=== PATIENT | female | born 1940 | race Caucasian/White ===

== ENCOUNTER → 2017-04-05 | Outpatient (CLI) | payer OTHER ==
[~2017-04-05] MED LIST: B-CO1CAP3 PO; CALC-354 PO; CHOL2000 PO; LEVO75TA PO; NRN800 PO; OMEG12006 PO; PRLSR20 PO
--- NOTE | 2017-04-05 16:05 | MAMMOGRAPHY REPORT ---
BILATERAL DIGITAL SCREENING MAMMOGRAM WITH CAD: 04/05/2017 CLINICAL HISTORY: Routine screening. Patient has no complaints. TECHNIQUE: Bilateral CC and MLO views were obtained. Current study was also evaluated with a Comput er Aided Detection (CAD) system. COMPARISON: Comparison is made to exams dated: 03/29/2016 mammogram, 03/27/2015 ultrasound, 03/27/2015 mammogram, 03/21/2015 mammogram - [facility], and 03/06/2009. BREAST COMPOSITION: There are scattered areas of fibroglandular density in both breasts. FINDINGS: There are scattered bilateral benign-appearing calcifications. No suspicious mass, eliana ectural distortion or cluster of new, suspicious microcalcifications is seen. IMPRESSION: ACR BI-RADS CATEGORY 1: NEGATIVE There is no mammographic evidence of malignancy. A 1 year screening mammogram is recommended. The p atient will receive written notification of the results. Approximately 10% of breast cancers are not detected with mammography. A negative mammographic repor t should not delay biopsy if a clinically suggestive mass is present. Jaclyn Jernigan M.D. ay/:04/05/2017 14:25:47 Smoking Pipe Repairer: Lily ROJAS(Rai)(Law), [facility] letter sent: Normal 1/2 BI-RADS Code: ACR BI-RADS Category 1: Negative
== END | disposition home or self-care (01) ==
LOC: C.MAMM 13:25
PROVIDERS: ATTEND Internal Medicine
DX: Z12.31 Encounter for screening mammogram for malignant neoplasm of breast (principal)

== ENCOUNTER → 2017-05-18 | Outpatient (CLI) | payer OTHER ==
[2017-05-18 13:17] LABS: BASO % 0.5 %; BASO ABS # 0.03 K/uL (0-0.2); COMPLETE YES; EOS % 2.8 %; HEMATOCRIT 39.8 % (37-47); IG% 0.2 %; LYMPH % 17.5 %; LYMPH ABS # 1.06 K/uL (1.2-3.4); MEAN CELL VOLUME 90.2 fL (80-100); MEAN CORPUSCULAR HEMOGLOBIN 30.4 pg (25-34); MEAN CORPUSCULAR HGB CONC 33.7 g/dl (32-36); MEAN PLATELET VOLUME 9.3 fL (7.4-10.4); MONO % 7.1 %; NEUT % 71.9 %; PLATELET COUNT 304 K/uL (130-400); RED BLOOD COUNT 4.41 M/uL (4.2-5.4); WHITE BLOOD COUNT 6.04 K/uL (4.8-10.8)
[2017-05-18 14:05] LABS: ALT/SGPT 41 U/L (12-78); BLOOD UREA NITROGEN 14 mg/dl (7-18); BUN/CREATININE RATIO 15.1 (10-20); CARBON DIOXIDE 27 mmol/L (21-32); CHLORIDE 105 mmol/L (98-107); CHOLESTEROL 203 mg/dl (0-200); CREATININE 0.94 mg/dl (0.60-1.20); GLUCOSE 88 mg/dl (70-99); SODIUM 139 mmol/L (136-145); TRIGLYCERIDES 104 mg/dl (0-150); VERY LOW DENSITY LIPOPROT CALC 21 mg/dl
[2017-05-18 14:09] LABS: CALCIUM 8.7 mg/dl (8.5-10.1)
[2017-05-18 14:14] LABS: ALKALINE PHOSPHATASE 112 U/L (45-117); AST/SGOT 26 U/L (15-37); CHOLESTEROL/HDL RATIO 3.1; HDL CHOLESTEROL 66 mg/dl; THYROID STIMULATING HORMONE 0.532 uIu/ml (0.300-4.500)
== END | disposition home or self-care (01) ==
LOC: C.LABSPEC 12:25
PROVIDERS: ATTEND Internal Medicine
DX: E03.9 Hypothyroidism, unspecified (principal); E78.5 Hyperlipidemia, unspecified; R53.83 Other fatigue; E55.9 Vitamin D deficiency, unspecified

== ENCOUNTER 2018-06-27 17:25 | Emergency (ER) | payer OTHER ==
[~2018-06-27] VITALS: Ht 157.5 cm; Wt 67.6 kg
[~2018-06-27 17:25] MED LIST changes: +DOXY100C PO; +FLUO40CA8 PO
[2018-06-27 17:28] VITALS: TEMP 36.7; Ht 157.5 cm; Wt 67.6 kg
--- NOTE | 2018-06-27 17:47 | EMERGENCY ROOM VISIT NOTE ---
History Report prepared by Zulema: Linette Sanches Under the Supervision of: Dr. Kendrick Lam M.D. First contact with patient: 17:32 Chief Complaint: INFECTION Stated Complaint: CELLULITIS,PHYSICIAN REFERRED History of Present Illness The patient is a 77 year old female who presents to the Emergency Room with complaints of worsening constant bilateral leg redness beginning recently. The patient was seen in the ED 3 days ago for weakness and cellulitis. She notes she has been taking Doxycycline 2x daily to treat her bilateral leg cellulitis. The patient reports her cousin did not turkey picker the other prescribed antibiotic for her as she did not think the patient needed to take two medications. She states she has been experiencing some chills. She denies difficulty walking, sleeping abnormalities, or difficulty eating or drinking. The patient states she came into the ED at the recommended of her hairdresser, who believed her legs looked worse than a few days ago. She notes she is not sure if her redness is actually worsening or the same as it has been the past few days. The patient reports it is difficult to get an appointment with her PCP, so she has not attempted to see him. Source of History: patient Onset: recently Position: leg (bilateral) Quality: other (redness) Timing: constant, worsening Note: Denies: difficulty walking, difficulty eating or drinking, sleeping abnormalities. Review of Systems See HPI for pertinent positives and negatives. A total of ten systems were reviewed and were otherwise negative. Past Medical & Surgical Medical Problems: (1) Anxiety (2) blood clots RLE (3) cataract removal (4) Cellulitis (5) Depression (6) Hypothyroidism (7) left rotator cuff surgery Family History Cancer Diabetes mellitus Heart disease Hypertension Kidney disease Kidney stones Social History Smoking Status: Never Smoker Alcohol Use: none Drug Use: none Marital Status: single Housing Status: lives alone Occupation Status: retired Current/Historical Medications Scheduled B-Complex Vitamins (B Complex), 1 CAP PO DAILY Calcium Carbonate-Cholecalcife (Caltrate 600+D), 1 TAB PO DAILY Cephalexin Monohydrate (Cephalexin), 1 TAB PO TID Cholecalciferol (Vitamin D3), 2,000 INTER.UNIT PO DAILY Doxycycline Hyclate (Vibramycin), 100 MG PO BID Fluoxetine (Prozac), 40 MG PO QAM Gabapentin (Gabapentin), 800 MG PO BID Levothyroxine Sodium (Synthroid), 75 MCG PO 6XWK Rock-3 Fatty Acids (Rock 3), 1,000 MG PO DAILY Omeprazole (Prilosec), 20 MG PO DAILY Allergies Coded Allergies: No Known Allergies (Verified , 06/27/18) Physical Exam Vital Signs Date Time Temp Pulse Resp B/P (MAP) Pulse Ox O2 Delivery O2 Flow Rate FiO2 06/27/18 19:00 84 16 117/74 98 06/27/18 18:10 72 16 151/67 100 Room Air 06/27/18 17:28 36.7 80 17 158/63 100 Room Air Physical Exam GENERAL: Awake, alert, well-appearing, in no distress HENT: Normocephalic, atraumatic. Oropharynx unremarkable. EYES: Normal conjunctiva. Sclera non-icteric. NECK: Supple. No nuchal rigidity. RESPIRATORY: Clear to auscultation. No wheezes. Normal respiratory effort. CARDIAC: Normal rate. Normal rhythm. Extremities warm and well perfused. GI: Soft, non-distended. No tenderness to palpation. No rebound or guarding. RECTAL: Deferred. MUSCULOSKELETAL: Atraumatic. Chest examination reveals no tenderness. LOWER EXTREMITIES: Calves are equal size bilaterally and non-tender. Skin described below. Trace bilateral edema. NEURO: Normal sensorium. No sensory or motor deficits noted. No facial droop. SKIN: Warm and dry. Bilateral R greater than L erythema of lower legs without crepitus or fluctuance to the mid calf Medical Decision & Procedures Laboratory Results 06/27/18 18:11 Red Blood Count 3.92, Mean Corpuscular Volume 90.6, Mean Corpuscular Hemoglobin 29.6, Mean Corpuscular Hemoglobin Concent 32.7, Mean Platelet Volume 9.2, Neutrophils (%) (Auto) 57.9, Lymphocytes (%) (Auto) 26.0, Monocytes (%) (Auto) 13.2, Eosinophils (%) (Auto) 2.3, Basophils (%) (Auto) 0.4, Neutrophils # (Auto ) 3.26, Lymphocytes # (Auto) 1.46, Monocytes # (Auto) 0.74, Eosinophils # (Auto ) 0.13, Basophils # (Auto) 0.02 06/27/18 18:11 Test 06/27/18 18:11 White Blood Count 5.62 K/uL (4.8-10.8) Red Blood Count 3.92 M/uL (4.2-5.4) Hemoglobin 11.6 g/dL (12.0-16.0) Hematocrit 35.5 % (37-47) Mean Corpuscular Volume 90.6 fL (80-100) Mean Corpuscular Hemoglobin 29.6 pg (25-34) Mean Corpuscular Hemoglobin Concent 32.7 g/dl (32-36) Platelet Count 325 K/uL (130-400) Mean Platelet Volume 9.2 fL (7.4-10.4) Neutrophils (%) (Auto) 57.9 % Lymphocytes (%) (Auto) 26.0 % Monocytes (%) (Auto) 13.2 % Eosinophils (%) (Auto) 2.3 % Basophils (%) (Auto) 0.4 % Neutrophils # (Auto) 3.26 K/uL (1.4-6.5) Lymphocytes # (Auto) 1.46 K/uL (1.2-3.4) Monocytes # (Auto) 0.74 K/uL (0.11-0.59) Eosinophils # (Auto) 0.13 K/uL (0-0.5) Basophils # (Auto) 0.02 K/uL (0-0.2) RDW Standard Deviation 42.9 fL (36.4-46.3) RDW Coefficient of Variation 12.9 % (11.5-14.5) Immature Granulocyte % (Auto) 0.2 % Immature Granulocyte # (Auto) 0.01 K/uL (0.00-0.02) Anion Gap 7.0 mmol/L (3-11) Est Creatinine Clear Calc Drug Dose 50.8 ml/min Estimated GFR () 77.1 Estimated GFR (Non- 66.6 BUN/Creatinine Ratio 18.9 (10-20) Calcium Level 9.0 mg/dl (8.5-10.1) Laboratory results reviewed by me Medications Administered Medications (Trade) Dose Ordered Sig/Lanie Route Start Time Stop Time Status Last Admin Dose Admin Cephalexin Monohydrate (Keflex Cap) 500 mg NOW ONCE PO 06/27/18 18:00 06/27/18 18:01 DC 06/27/18 18:02 500 MG ED Course 1733: The patient was evaluated in room C9. A complete history and physical exam was performed. 1800: Ordered Keflex Cap 500 mg PO. 185: I reevaluated the patient. Discussed results and discharge instructions: she verbalized understanding and agreement. The patient is ready for discharge. Medical Decision Etiologies such as cellulitis, abscess, MRSA infection, DVT, necrotizing fasciitis, dermatitis, drug eruption, as well as others were entertained. Patient presents for reevaluation of lower extremity cellulitis. I did see this patient several days ago here. States came here for reevaluation rather than PCP. Was prescribed doxycycline and Keflex but per her cousin's recommendation has been taking the doxycycline only. Denies fever or other systemic symptoms. Still having some pain complaint of the legs and erythema is about the same on my reevaluation. States she has been getting around okay otherwise. Vitals otherwise stable. Again my reevaluation this appears about the same. Had prior workup for DVT which was negative. Do not believe this is an acute heart failure exacerbation currently. Would recommend continuing both this Keflex and the doxycycline for both strep and staph coverage. Basic labs completed today and white blood cell count significantly decreased. Discussed with her plan to continue abx including Keflex and she will begin this tonight. Discussed return precautions again reviewed and she feels comfortable with discharge. Medication Reconcilliation Current Medication List: was personally reviewed by me Blood Pressure Screening Patient's blood pressure: Elevated blood pressure Blood pressure disposition: Referred to PCP Impression Primary Impression: Cellulitis Scribe Attestation The scribe's documentation has been prepared under my direction and personally reviewed by me in its entirety. I confirm that the note above accurately reflects all work, treatment, procedures, and medical decision making performed by me. Departure Information Dispostion Home / Self-Care Referrals No Doctor, Assigned (PCP) Forms HOME CARE DOCUMENTATION FORM, IMPORTANT VISIT INFORMATION, WORK / SCHOOL INSTRUCTIONS Patient Instructions My [facility] Additional Instructions At this point I would recommend utilizing both the doxycycline and the Keflex as previously prescribed to. Continue with the same plan for return precautions to monitor for any signs of fever or worsening of your legs and return sooner here. Otherwise would recommend follow-up on Tuesday with your PCP for reevaluation. Problem Qualifiers Primary Impression: Cellulitis Site of cellulitis: extremity Site of cellulitis of extremity: lower extremity Laterality: unspecified laterality Qualified Codes: L03.119 - Cellulitis of unspecified part of limb
[2018-06-27] MEDS ORDERED: CEPHALEXIN MONOHYDRATE 250 MG CAP PO ONE (18:00)
[2018-06-27 18:24] LABS: BASO % 0.4 %; BASO ABS # 0.02 K/uL (0-0.2); EOS % 2.3 %; EOS ABS # 0.13 K/uL (0-0.5); HEMATOCRIT 35.5 % (37-47); HEMOGLOBIN 11.6 g/dL (12.0-16.0); IG# 0.01 K/uL (0.00-0.02); LYMPH ABS # 1.46 K/uL (1.2-3.4); MEAN CELL VOLUME 90.6 fL (80-100); MEAN CORPUSCULAR HEMOGLOBIN 29.6 pg (25-34); MEAN CORPUSCULAR HGB CONC 32.7 g/dl (32-36); MEAN PLATELET VOLUME 9.2 fL (7.4-10.4); MONO % 13.2 %; MONO ABS # 0.74 K/uL (0.11-0.59); NEUT % 57.9 %; NEUT ABS # 3.26 K/uL (1.4-6.5); PLATELET COUNT 325 K/uL (130-400); RED CELL DISTRIBUTION WIDTH CV 12.9 % (11.5-14.5); RED CELL DISTRIBUTION WIDTH SD 42.9 fL (36.4-46.3); WHITE BLOOD COUNT 5.62 K/uL (4.8-10.8)
[2018-06-27 18:40] LABS: CREATININE 0.85 mg/dl (0.60-1.20); POTASSIUM 3.5 mmol/L (3.5-5.1)
[2018-06-27] MEDS ORDERED: KFL500HP PO (18:47)
[2018-06-27 19:00] VITALS: BP 117/74; PULSE 84; O2SAT 98
== END 2018-06-27 19:00 | disposition home or self-care (01) ==
LOC: C.EDB 17:26 → C.EDC 19:00
DX: L03.115 Cellulitis of right lower limb (principal); L03.116 Cellulitis of left lower limb; F32.9 Major depressive disorder, single episode, unspecified; E03.9 Hypothyroidism, unspecified; Z79.899 Other long term (current) drug therapy; Z86.718 Personal history of other venous thrombosis and embolism

== ENCOUNTER 2021-03-29 15:43 | Inpatient (IN) ==
[2021-03-29 16:24] LABS: Basophils # (auto) 0.02 K/uL (0-0.2); Basophils % (auto) 0.4 %; Eosinophils # (auto) 0.14 K/uL (0-0.5); Eosinophils % (auto) 2.6 %; Hematocrit (blood only) 34.6 % (37-47); Hemoglobin 11.2 g/dL (12.0-16.0); Lymphocytes # (auto) 1.78 K/uL (1.2-3.4); Lymphocytes % (auto) 32.7 %; Mean Corpuscular Hemoglobin 29.1 pg (25-34); Mean Corpuscular Hgb Conc 32.4 g/dL (32-36); Mean Corpuscular Volume 89.9 fL (80-100); Mean Platelet Volume 8.7 fL (7.4-10.4); Monocytes # (auto) 0.44 K/uL (0.11-0.59); Monocytes % (auto) 8.1 %; Neutrophils # (auto) 3.07 K/uL (1.4-6.5); Neutrophils % (auto) 56.2 %; Platelet Count 287 K/uL (130-400); RDW Coefficient of Variation 13.4 % (11.5-14.5); RDW Standard Deviation 43.8 fL (36.4-46.3); Red Blood Count 3.85 M/uL (4.2-5.4); White Blood Count 5.45 K/uL (4.8-10.8)
[2021-03-29 16:41] LABS: Alanine Aminotransferase 36 U/L (12-78); Albumin Level 2.8 gm/dl (3.4-5.0); Aspartate Aminotransferase 32 U/L (15-37); BUN Creatinine Ratio 14.1 (10-20); Blood Urea Nitrogen 12 mg/dl (7-18); Calcium 8.8 mg/dl (8.5-10.1); Carbon Dioxide 30 mmol/L (21-32); Chloride 106 mmol/L (98-107); Creatinine Clr Calc Pharmacy 48.2 ml/min; Est GFR (African American) 77.7; Est GFR (Non-African American) 67.1; Glucose 102 mg/dl (70-99); Potassium 3.8 mmol/L (3.5-5.1); Sodium 141 mmol/L (136-145)
--- NOTE | 2021-03-29 16:50 | Emergency Department Note ---
History of Present Illness General Chief complaint: Syncope Stated complaint: SYNCOPE Time Seen by Provider: 03/29/21 16:30 Source: patient Mode of arrival: EMS Limitations: no limitations History of Present Illness This patient is brought in by EMS after being found slumped over the wheel of her car in a parking lot. She says she just fell asleep. She says she stays up too late. She was seen here yesterday after falling and hitting her head. She tells me she fell again. She is been falling recently. She says she did not pass out when she fell. She has mild hip pain she broke some ribs yesterday as well denies shortness of breath or chest pain or abdominal pain with sepsis in the hip. Denies fever she is had Covid vaccine x1. Denies that she is take any extra medicine or tried to overdose in any way. She does take gabapentin 300 mg twice a day which the dose has been reduced recently no neck pain. No blood or melena stool no urinary symptoms. No difficulty speaking or swallowing. Home Medications Medication Instructions Recorded Confirmed Type Caltrate 600 plus D 1 tab PO QAM 08/16/18 03/29/21 History cholecalciferol (vitamin D3) 0 unit PO QAM 08/16/18 03/29/21 History [Vitamin D3] levothyroxine 75 mcg PO QAM 08/16/18 03/29/21 History omeprazole 20 mg PO QAM 08/16/18 03/29/21 History vitamin B complex [B-Complex] 1 tab PO QAM 08/16/18 03/29/21 History acetaminophen [Pain Reliever] 1,000 mg PO DIRECTED PRN 09/06/18 03/29/21 History xsmfzjzzmnwj-dxkkukpo-thcxee 1 tab PO DAILY 09/06/18 03/29/21 History [Multivitamin 50 Plus] gabapentin 300 mg PO BID 03/28/21 03/29/21 History lamotrigine 150 mg PO HS 03/28/21 03/29/21 History omega 9-kti-djp-fish oil [Fish Oil] 1 cap PO DAILY 03/28/21 03/29/21 History paroxetine HCl 20 mg PO HS 03/28/21 03/29/21 History vit C,A-Sb-dtpnq-lutein-zeaxan 1 tab PO AMHS 03/28/21 03/29/21 History [PreserVision AREDS-2] Allergies Allergy/AdvReac Type Severity Reaction Status Date / Time No Known Allergies Allergy Verified 03/29/21 16:55 Past Med/Surg History Medical History (Updated 04/02/21 @ 10:34 by Destin Oro MD) Anxiety Cellulitis Cellulitis Heart murmur Patient will be scheduled for an echocardiogram she is no recollection of being told that she had a heart murmur Hypothyroidism Paroxysmal atrial fibrillation with RVR Postherpetic neuralgia Rib fracture Weakness Social History Smoking Status: Never smoker Second Hand Exposure: No; Hx Alcohol Use: No Hx Substance Use: No Preferred Language: Albanian Communication Ability: Effective Public Relations Representative Required: No Beliefs That Will Affect Care: None marital status: Single Current Living Situation: Alone current occupational status: retired How many Children do You have: 0 Other Information That Helps Us Care for You: No Feels Safe at Home: Yes Safety Concerns: Feels Safe At This Time Assistive Devices: Walker Review of Systems A total of 10 systems reviewed and were otherwise negative Physical Exam Vital Signs Vital Signs - 24 hr 03/29/21 15:54 Temperature 36.7 C Temperature Source Oral Pulse Rate 84 Pulse Rhythm Regular Pulse Strength Normal Respiratory Rate 16 Respiratory Effort / Characteristics Non-Labored Respiratory Depth Normal Respiratory Pattern Regular Blood Pressure 131/69 Blood Pressure Mean 89 Blood Pressure Position Sitting Pulse Oximetry 96 Oxygen Delivery Method Room Air Sepsis Recent Fever Within 48 Hours No Sepsis New/Unexplained Change in Mental Status No Sepsis Action Taken by Nursing No Action Required General: Well developed well nourished in older female who appears no acute distress, breathing comfortably on room air. Normal speech HEENT: Normal cephalic atraumatic with exception of a moderate to large hematoma in the right occipital area. No laceration. Pupils are equal round and r eactive to light. Extraocular movements are intact. Oropharynx is pink with moist mucous membranes. No swelling of the mouth lips or tongue. Neck: Supple with a midline trachea. No meningeal signs or stiffness, no JVD or bruits. No Stridor. Chest: Clear to auscultation bilaterally. No wheezes or rhonchi. No increased work of breathing. Heart: Regular rate and rhythm without murmurs or gallops. Abdomen: Soft nontender, nondistended without rebound guarding or rigidity. Extremities: No cyanosis clubbing or edema. No calf tenderness or assymetry. She does seem to have pain with movement of the left hip Spine/Back. Non tender to palpation. No CVA tenderness Skin: Good turgor without rashes. Neurologic exam: Cranial nerves two through 12 are intact. Motor and sensation are intact and symmetrical throughout. Course Administered Medications Acetaminophen (Acetaminophen 325 Mg Tab) 650 mg PO Q4H PRN PRN Reason: Pain or Fever Stop: 04/28/21 22:02 Last Admin: 03/31/21 20:48 Dose: 650 mg Documented by: [id number] Admin: 03/30/21 18:24 Dose: 650 mg Documented by: [id number] Admin: 03/29/21 23:16 Dose: 650 mg Documented by: [id number] Diclofenac Sodium (Diclofenac Sod 1% Gel 100 Gm Tube) 2 gm EXT BID MIKE Stop: 05/01/21 20:59 Last Admin: 04/02/21 08:39 Dose: 2 gm Documented by: [id number] Admin: 04/01/21 21:54 Dose: 2 gm Documented by: [id number] Fish Oil ([place]-3 (Purified Fish Oil) 1 Gm Cap) 1 gm PO DAILY MIKE Stop: 04/29/21 08:59 Last Admin: 04/02/21 08:39 Dose: 1 gm Documented by: [id number] Admin: 04/01/21 08:24 Dose: 1 gm Documented by: [id number] Admin: 03/31/21 08:28 Dose: 1 gm Documented by: [id number] Admin: 03/30/21 08:28 Dose: 1 gm Documented by: [id number] Gabapentin (Gabapentin 300 Mg Cap) 300 mg PO BID MIKE Stop: 04/28/21 22:02 Last Admin: 04/02/21 08:38 Dose: 300 mg Documented by: [id number] Admin: 04/01/21 21:57 Dose: 300 mg Documented by: [id number] Admin: 04/01/21 08:23 Dose: 300 mg Documented by: [id number] Admin: 03/31/21 20:48 Dose: 300 mg Documented by: [id number] Admin: 03/31/21 08:28 Dose: 300 mg Documented by: [id number] Admin: 03/30/21 20:53 Dose: 300 mg Documented by: [id number] Admin: 03/30/21 10:30 Dose: 300 mg Documented by: [id number] Admin: 03/29/21 22:53 Dose: 300 mg Documented by: [id number] Heparin Sodium (Porcine) (Heparin Sod 5,000 Unit/0.5 Ml Vial) 5,000 units SQ Q12 MIKE Stop: 04/28/21 22:02 Last Admin: 04/02/21 08:39 Dose: 5,000 units Documented by: [id number] Admin: 04/01/21 21:57 Dose: 5,000 units Documented by: [id number] Admin: 04/01/21 08:24 Dose: 5,000 units Documented by: [id number] Admin: 03/31/21 20:50 Dose: 5,000 units Documented by: [id number] Admin: 03/31/21 08:28 Dose: 5,000 units Documented by: [id number] Admin: 03/30/21 20:53 Dose: 5,000 units Documented by: [id number] Admin: 03/30/21 08:29 Dose: 5,000 units Documented by: [id number] Admin: 03/29/21 22:54 Dose: 5,000 units Documented by: [id number] Dexamethasone 6 mg/ Syringe 1.5 mls @ 1 mls/min IV Q24H MIKE Stop: 04/29/21 08:59 Last Admin: 04/02/21 08:38 Dose: 1 mls/min Documented by: [id number] Admin: 04/01/21 08:22 Dose: 1 mls/min Documented by: [id number] Admin: 03/31/21 08:28 Dose: 1 mls/min Documented by: [id number] Admin: 03/30/21 08:28 Dose: 1 mls/min Documented by: [id number] Lamotrigine (Lamotrigine 100 Mg Tab) 150 mg PO HS MIKE Stop: 04/28/21 22:29 Last Admin: 04/01/21 21:56 Dose: 150 mg Documented by: [id number] Admin: 03/31/21 20:50 Dose: 150 mg Documented by: [id number] Admin: 03/30/21 20:52 Dose: 150 mg Documented by: [id number] Admin: 03/29/21 22:54 Dose: 150 mg Documented by: [id number] Levothyroxine Sodium (Levothyroxine Sodium 75 Mcg Tablet) 75 mcg PO DAILYBB MIKE Stop: 04/29/21 06:29 Last Admin: 04/02/21 05:37 Dose: 75 mcg Documented by: [id number] Admin: 04/01/21 05:42 Dose: 75 mcg Documented by: [id number] Admin: 03/31/21 05:44 Dose: 75 mcg Documented by: [id number] Admin: 03/30/21 06:01 Dose: 75 mcg Documented by: [id number] Multivitamins/Minerals (Calcium 600mg + Vit D 400 Iu Tab) 1 tab PO QAM [facility] Stop: 04/29/21 08:59 Last Admin: 04/02/21 08:39 Dose: 1 tab Documented by: [id number] Admin: 04/01/21 08:24 Dose: 1 tab Documented by: [id number] Admin: 03/31/21 08:28 Dose: 1 tab Documented by: [id number] Admin: 03/30/21 08:28 Dose: 1 tab Documented by: [id number] Multivitamins/Minerals (Cerovite Adv Formula Tab) 1 tab PO BID [facility] Stop: 04/28/21 22:29 Last Admin: 04/02/21 08:38 Dose: 1 tab Documented by: [id number] Admin: 04/01/21 21:56 Dose: 1 tab Documented by: [id number] Admin: 04/01/21 08:24 Dose: 1 tab Documented by: [id number] Admin: 03/31/21 20:47 Dose: 1 tab Documented by: [id number] Admin: 03/31/21 08:29 Dose: 1 tab Documented by: [id number] Admin: 03/30/21 20:53 Dose: 1 tab Documented by: [id number] Admin: 03/30/21 08:28 Dose: 1 tab Documented by: [id number] Admin: 03/29/21 22:53 Dose: 1 tab Documented by: [id number] Pantoprazole Sodium (Pantoprazole 40 Mg Tab) 40 mg PO QAM [facility] Stop: 04/29/21 08:59 Last Admin: 04/02/21 08:38 Dose: 40 mg Documented by: [id number] Admin: 04/01/21 08:24 Dose: 40 mg Documented by: [id number] Admin: 03/31/21 08:29 Dose: 40 mg Documented by: [id number] Admin: 03/30/21 08:27 Dose: 40 mg Documented by: [id number] Paroxetine HCl (Paroxetine Hcl 20 Mg Tab) 20 mg PO HS MIKE Stop: 04/28/21 22:02 Last Admin: 04/01/21 21:56 Dose: 20 mg Documented by: [id number] Admin: 03/31/21 20:48 Dose: 20 mg Documented by: [id number] Admin: 03/30/21 20:52 Dose: 20 mg Documented by: [id number] Admin: 03/29/21 22:54 Dose: 20 mg Documented by: [id number] Vitamin B Complex (Vitamin B Complex Tab) 1 tab PO QAM MIKE Stop: 04/29/21 08:59 Last Admin: 04/02/21 08:39 Dose: 1 tab Documented by: [id number] Admin: 04/01/21 08:24 Dose: 1 tab Documented by: [id number] Admin: 03/31/21 08:29 Dose: 1 tab Documented by: [id number] Admin: 03/30/21 08:28 Dose: 1 tab Documented by: [id number] Vitamin D (Cholecalciferol 1,000 Units 25 Mcg Tab) 5,[facility] [place]: 04/29/21 08:59 Last Admin: 04/02/21 08:38 Dose: 5,000 units Documented by: [id number] Admin: 04/01/21 08:24 Dose: 5,000 units Documented by: [id number] Admin: 03/31/21 08:28 Dose: 5,000 units Documented by: [id number] Admin: 03/30/21 08:28 Dose: 5,000 units Documented by: [id number] Zinc Sulfate (Zinc Sulfate 220 Mg Capsule) 220 mg [facility] [place]: 04/29/21 08:59 Last Admin: 04/02/21 08:38 Dose: 220 mg Documented by: [id number] Admin: 04/01/21 08:23 Dose: 220 mg Documented by: [id number] Admin: 03/31/21 08:29 Dose: 220 mg Documented by: [id number] Admin: 03/30/21 08:28 Dose: 220 mg Documented by: [id number] Discontinued Medications Potassium Chloride/Sodium Chloride (Normal Saline W/20 Meq Kcl) 20 meq in 1,000 mls @ 60 mls/hr IV .[id number] MIKE Stop: 04/28/21 22:02 Last Infusion: 04/01/21 09:01 Dose: 0 mls/hr Documented by: [id number] Admin: 03/31/21 22:46 Dose: 60 mls/hr Documented by: [id number] Infusion: 03/31/21 22:25 Dose: 60 mls/hr Documented by: [id number] Admin: 03/31/21 05:44 Dose: 60 mls/hr Documented by: [id number] Infusion: 03/31/21 05:44 Dose: 60 mls/hr Documented by: [id number] Admin: 03/30/21 15:04 Dose: 60 mls/hr Documented by: [id number] Infusion: 03/30/21 15:04 Dose: 60 mls/hr Documented by: [id number] Admin: 03/29/21 22:54 Dose: 60 mls/hr Documented by: [id number] Dexamethasone 6 mg/ Syringe 1.5 mls @ 1 mls/min IV ONE ONE Stop: 03/29/21 22:04 Last Admin: 03/29/21 22:54 Dose: 1 mls/min Documented by: [id number] Ioversol (Optiray 300 100ml) 89 ml IV ONCE ONE Stop: 03/29/21 17:51 Last Admin: 03/29/21 17:51 Dose: 89 ml Documented by: [id number] Medical Decision Making Differential Diagnosis Traumatic injuries, concussion, head injury, and internal injuries, arrhythmia, electrolyte or metabolic abnormality Medical Records Attestation: I reviewed the patient's medical records. Home Medications Current Medication List: was personally reviewed by me Laboratory Data Attestation: I reviewed the patient's lab results. Result diagrams: 04/01/21 06:34 04/01/21 06:34 Lab Results 03/29/21 03/29/21 03/29/21 Range/Units 16:13 16:13 18:20 WBC 5.45 (4.8-10.8) K/uL RBC 3.85 L (4.2-5.4) M/uL Hgb 11.2 L (12.0-16.0) g/dL Hct 34.6 L (37-47) % MCV 89.9 (80-100) fL MCH 29.1 (25-34) pg MCHC 32.4 (32-36) g/dL RDW Std Deviation 43.8 (36.4-46.3) fL RDW Coeff of Benita 13.4 (11.5-14.5) % Plt Count 287 (130-400) K/uL MPV 8.7 (7.4-10.4) fL Immature Gran % (Auto) 0.0 % Neut % (Auto) 56.2 % Lymph % (Auto) 32.7 % [place] % (Auto) 8.1 % Eos % (Auto) 2.6 % Baso % (Auto) 0.4 % Neut # (Auto) 3.07 (1.4-6.5) K/uL Lymph # (Auto) 1.78 (1.2-3.4) K/uL [place] # (Auto) 0.44 (0.11-0.59) K/uL Eos # (Auto) 0.14 (0-0.5) K/uL Baso # (Auto) 0.02 (0-0.2) K/uL Immature Gran # (Auto) 0.00 (0.00-0.02) K/uL Sodium 141 (136-145) mmol/L Potassium 3.8 (3.5-5.1) mmol/L Chloride 106 (98-107) mmol/L Carbon Dioxide 30 (21-32) mmol/L Anion Gap 5.0 (3-11) BUN 12 (7-18) mg/dl Creatinine 0.83 (0.6-1.2) mg/dl Est Cr Clr Drug Dosing 48.2 ml/min Est GFR ( Amer) 77.7 Est GFR (Non-Af Amer) 67.1 BUN/Creatinine Ratio 14.1 (10-20) Glucose 102 H (70-99) mg/dl Calcium 8.8 (8.5-10.1) mg/dl Total Bilirubin 0.8 (0.2-1) mg/dl AST 32 (15-37) U/L ALT 36 (12-78) U/L Alkaline Phosphatase 133 H (45-117) U/L Troponin I < 0.015 (0-0.045) ng/ml Total Protein 6.2 L (6.4-8.2) gm/dl Albumin 2.8 L (3.4-5.0) gm/dl Globulin 3.4 (2.5-4.0) gm/dl Albumin/Globulin Ratio 0.8 L (0.9-2) TSH 1.500 (0.300-4.500) uIu/ml COVID-19 Eval Order CovFluRsv at [facility] SARS-CoV-2 (PCR) (Negative) Influenza Type A (PCR) (Neg) Influenza Type B (PCR) (Neg) RSV (RT-PCR) (Neg) 03/29/21 Range/Units 18:20 WBC (4.8-10.8) K/uL RBC (4.2-5.4) M/uL Hgb (12.0-16.0) g/dL Hct (37-47) % MCV (80-100) fL MCH (25-34) pg MCHC (32-36) g/dL RDW Std Deviation (36.4-46.3) fL RDW Coeff of Benita (11.5-14.5) % Plt Count (130-400) K/uL MPV (7.4-10.4) fL Immature Gran % (Auto) % Neut % (Auto) % Lymph % (Auto) % [place] % (Auto) % Eos % (Auto) % Baso % (Auto) % Neut # (Auto) (1.4-6.5) K/uL Lymph # (Auto) (1.2-3.4) K/uL [place] # (Auto) (0.11-0.59) K/uL Eos # (Auto) (0-0.5) K/uL Baso # (Auto) (0-0.2) K/uL Immature Gran # (Auto) (0.00-0.02) K/uL Sodium (136-145) mmol/L Potassium (3.5-5.1) mmol/L Chloride (98-107) mmol/L Carbon Dioxide (21-32) mmol/L Anion Gap (3-11) BUN (7-18) mg/dl Creatinine (0.6-1.2) mg/dl Est Cr Clr Drug Dosing ml/min Est GFR ( Amer) Est GFR (Non-Af Amer) BUN/Creatinine Ratio (10-20) Glucose (70-99) mg/dl Calcium (8.5-10.1) mg/dl Total Bilirubin (0.2-1) mg/dl AST (15-37) U/L ALT (12-78) U/L Alkaline Phosphatase (45-117) U/L Troponin I (0-0.045) ng/ml Total Protein (6.4-8.2) gm/dl Albumin (3.4-5.0) gm/dl Globulin (2.5-4.0) gm/dl Albumin/Globulin Ratio (0.9-2) TSH (0.300-4.500) uIu/ml COVID-19 Eval Order SARS-CoV-2 (PCR) POSITIVE A* (Negative) Influenza Type A (PCR) Negative (Neg) Influenza Type B (PCR) Negative (Neg) RSV (RT-PCR) Negative (Neg) Imaging Data Attestation: I personally reviewed and interpreted this imaging study as follows: My Impression: Chest x-ray, no acute infiltrate, failure, or pneumothorax -on my interpretation Radiologist's Impression: Chest X-Ray 03/29/21 16:14 XR chest 1V portable HISTORY: 80 years-old Female weakness acute weakness COMPARISON: Chest and rib radiographs 03/28/2021 TECHNIQUE: Portable AP view the chest FINDINGS: Cardiac silhouette is enlarged. The patient is rotated. Unchanged mild blunting of the costophrenic angles. No pneumothorax, large pleural effusion, airspace consolidation or overt pulmonary edema. Chronic interstitial coarsening. Degenerative changes of the shoulders and spine. ORIF hardware of the left proximal humerus. IMPRESSION: No acute process. ACT 112: Negative or not required by law. The above report was generated using voice recognition software. It may contain grammatical, syntax or spelling errors. Electronically signed by: Evgeny Weinstein M.D. 03/29/2021 4:54 PM Abdomen/Pelvis CT 03/29/21 16:[address] WITH CONTRAST HISTORY: Acute chest and abdominal trauma status post fall eval for fall TECHNIQUE: Multiaxial CT images of the chest, abdomen and pelvis were performed following the IV administration of 89 cc of Optiray. A dose lowering technique was utilized adhering to the principles of ALARA. COMPARISON: CT chest, abdomen and pelvis 08/16/2018. FINDINGS: CT CHEST: No thyroid nodule. No adenopathy. Mild cardiomegaly with moderate to extensive coronary artery calcifications. No thoracic aortic aneurysm or mediastinal hematoma. The opacified pulmonary artery is unremarkable. Trace left pleural effusion. No pneumothorax. Mild bibasilar atelectasis. There are no suspicious pulmonary nodules or masses. The central airways are patent. Unremarkable soft tissues. Streak artifact from left proximal humeral ORIF hardware. Healed chronic right-sided rib fractures. Acute versus subacute appearing nondisplaced fracture of the anterolateral left third rib. There are acute fractures of the anterolateral left fourth through seventh ribs with only minimal displacement. There is mild superior endplate compression of the T3 vertebral body of approximately 25%, new from comparison. No retropulsion. CT ABDOMEN/PELVIS: No pneumatosis or pneumoperitoneum. The spleen, mildly atrophic pancreas, adrenal glands and gallbladder are unremarkable. Unchanged 2.0 cm hypodensity left hepatic lobe near the falciform ligament, likely benign. Patency of the hepatic and portal veins. Renal sinus cysts of the left kidney. No hydronephrosis. Urinary bladder wall thickening with partial distention. Unremarkable uterus and adnexa. Mild mixed plaque of the abdominal aorta without aneurysm. No adenopathy. Small hiatal hernia. No bowel obstruction or bowel wall thickening. Mild fecal retention. Normal appendix. Tiny fat filled periumbilical hernia. Mild subcutaneous edema lateral to the right hip. No acute fracture identified. IMPRESSION: 1. Acute versus subacute nondisplaced fracture of the anterolateral left third rib with acute minimally displaced fractures of the left fourth through seventh ribs. No pneumothorax. 2. T3 compression deformity is new from comparison and is likely acute or subacute. No retropulsion. 3. Mild subcutaneous edema lateral to the right hip. No acute fracture identified 4. Additional incidental findings as above. ACT 112: Negative or not required by law. Electronically signed by: Evgeny Weinstein M.D. 03/29/2021 6:[address] 03/29/21 16:45 CT cervical spine wo con CT DOSE: 1759.54 mGy.cm CLINICAL HISTORY: 80 years-old Female with fall. Acute head and neck injury status post fall COMPARISON: CT cervical spine 03/28/2021 TECHNIQUE: Multiple axial CT images of the cervical spine were obtained without contrast. A dose lowering technique was utilized adhering to the principles of ALARA. FINDINGS: Mild rotation at C1-C2 redemonstrated, likely positional. Demineralized appearance the bones. Moderate disc space narrowing at C5-C6 and C6-C7 with moderate to severe multilevel facet arthrosis. Unchanged 2 mm anterolisthesis C7 on T1, likely secondary to chronic facet arthrosis. Evaluation central canal and neuroforamina is better assessed by MRI. Multilevel neural foraminal stenosis. No pneumothorax. Diminutive thyroid. Unremarkable soft tissues. Unchanged minimal superior endplate compression at T1. IMPRESSION: No acute fracture or subluxation. ACT 112: Negative or not required by law. The above report was generated using voice recognition software. It may contain grammatical, syntax or spelling errors. Electronically signed by: Evgeny Weinstein M.D. 03/29/2021 6:[address] 03/29/21 16:[address] WITH CONTRAST HISTORY: Acute chest and abdominal trauma status post fall eval for fall TECHNIQUE: Multiaxial CT images of the chest, abdomen and pelvis were performed following the IV administration of 89 cc of Optiray. A dose lowering technique was utilized adhering to the principles of ALARA. COMPARISON: CT chest, abdomen and pelvis 08/16/2018. FINDINGS: CT CHEST: No thyroid nodule. No adenopathy. Mild cardiomegaly with moderate to extensive coronary artery calcifications. No thoracic aortic aneurysm or mediastinal hematoma. The opacified pulmonary artery is unremarkable. Trace left pleural effusion. No pneumothorax. Mild bibasilar atelectasis. There are no suspicious pulmonary nodules or masses. The central airways are patent. Unremarkable soft tissues. Streak artifact from left proximal humeral ORIF hardware. Healed chronic right-sided rib fractures. Acute versus subacute appearing nondisplaced fracture of the anterolateral left third rib. There are acute fractures of the anterolateral left fourth through seventh ribs with only minimal displacement. There is mild superior endplate compression of the T3 vertebral body of approximately 25%, new from comparison. No retropulsion. CT ABDOMEN/PELVIS: No pneumatosis or pneumoperitoneum. The spleen, mildly atrophic pancreas, adrenal glands and gallbladder are unremarkable. Unchanged 2.0 cm hypodensity left hepatic lobe near the falciform ligament, likely benign. Patency of the hepatic and portal veins. Renal sinus cysts of the left kidney. No hydronephrosis. Urinary bladder wall thickening with partial distention. Unremarkable uterus and adnexa. Mild mixed plaque of the abdominal aorta without aneurysm. No adenopathy. Small hiatal hernia. No bowel obstruction or bowel wall thickening. Mild fecal retention. Normal appendix. Tiny fat filled periumbilical hernia. Mild subcut aneous edema lateral to the right hip. No acute fracture identified. IMPRESSION: 1. Acute versus subacute nondisplaced fracture of the anterolateral left third rib with acute minimally displaced fractures of the left fourth through seventh ribs. No pneumothorax. 2. T3 compression deformity is new from comparison and is likely acute or subacute. No retropulsion. 3. Mild subcutaneous edema lateral to the right hip. No acute fracture identified 4. Additional incidental findings as above. ACT 112: Negative or not required by law. Electronically signed by: Evgeny Weinstein M.D. 03/29/2021 6:[address] 03/29/21 16:45 CT head/brain wo con CLINICAL HISTORY: 80 years-old Female with eval for trauma. Acute head trauma TECHNIQUE: Multiple axial CT images of the head were obtained without contrast. A dose lowering technique was utilized adhering to the principles of ALARA. COMPARISON: CT cervical spine of same day, head CT 03/28/2021 FINDINGS: No acute intracranial hemorrhage, midline shift, intracranial mass, hydrocephalus, territorial ischemia or abnormal extra-axial collection. Age- related involutional changes. White matter hypodensities suggestive of chronic microvascular ischemic disease. The calvarium is intact. Right scalp hematoma, 6.0 x 0.7 cm has increased in size from comparison. Prior bilateral lens repair. The paranasal sinuses, mastoid air cells, and middle ear cavities are clear. IMPRESSION: 1. No acute intracranial abnormality or calvarial fracture. 2. Right parietal scalp hematoma. ACT 112: Negative or not required by law. The above report was generated using voice recognition software. It may contain grammatical, syntax or spelling errors. Electronically signed by: Evgeny Weinstein M.D. 03/29/2021 6:10 PM ECG Data Attestation: I personally reviewed and interpreted this ECG as follows: Indication: + syncope and + weakness Rate (beats per minute): 83 Rhythm: + normal sinus ECG Intervals/blocks: + Normal QRS, + Normal QT and + Normal IA ECG [place]: + Normal ECG ST segments: + Normal ST segments ECG Findings: no PACs and no PVCs Comparison ECG Date: from (08/18/2018) Change: no significant change MDM Narrative This patient comes in as described above. She was placed in room C6. She is falling frequently. IV access was established EKG and blood work was obtained. Due to her syncope and frequent falls she was placed on a stock turner. She says she feels fine. She does have a hematoma in her posterior scalp from where she hit her head. Reviewing her records from yesterday she has some recent rib fractures as well. She had some sort of episode today where she either passed out or was asleep. She has been recurrently falling. In light of this I did extensive work-up. Her EKG does not suggest ischemia or arrhythmia. Troponin is negative. She is no significant lecture light or metabolic abnormalities. I did multiple CAT scans. There is no acute intracranial process seen on her head. She has no pneumothorax seen on her chest she does have a T3 compression fracture and some rib fractures as well. Her Covid test did come back positive which may explain some of her weakness. She is not hypoxemic. I do think she needs to be admitted/observed. I have consulted Dr. Marquez to see the pat ient for these measures. Continuous cardiac monitoring: Due to the patient's syncope and weakness, an order was placed in the EMR for continuous cardiac monitoring. Upon my interpretation., She was noted to be in normal sinus rhythm with a rate of 80 Impression & Plan Syncope, Rib fracture, Weakness, COVID-19, Fracture, thoracic vertebra Discharge Plan Visit Data Chief Complaint: Syncope Stated Complaint: SYNCOPE ED Provider: Destin Oro Discharge Problem: Syncope, Rib fracture, Weakness, COVID-19, Fracture, thoracic vertebra Patient Disposition: Admitted As Inpatient Discharge Instructions Interventions: ED Discharge Assessment Last Done: 03/29/21 21:31 Discharge Problem: Syncope Qualifiers: Syncope type: unspecified Qualified Code(s): R55 - Syncope and collapse Rib fracture Qualifiers: Encounter type: subsequent encounter Rib fracture type: multiple ribs Fracture type: closed Laterality: unspecified laterality Fracture healing: with routine healing Qualified Code(s): S22.49XD - Multiple fractures of ribs, unspecified side, subsequent encounter for fracture with routine healing Fracture, thoracic vertebra Qualifiers: Encounter type: initial encounter Thoracic vertebra fracture level: T3 Fracture type: closed Fracture morphology: unspecified fracture morphology Qualified Code(s): S22.039A - Unspecified fracture of third thoracic vertebra, initial encounter for closed fracture
[2021-03-29 16:52] LABS: Albumin Globulin Ratio 0.8 (0.9-2); Alkaline Phosphatase 133 U/L (45-117); Bilirubin,Total 0.8 mg/dl (0.2-1); Globulin 3.4 gm/dl (2.5-4.0); Total Protein 6.2 gm/dl (6.4-8.2); Troponin I < 0.015 ng/ml (0-0.045)
--- NOTE | 2021-03-29 16:55 | XRay Report ---
XR chest 1V portable HISTORY: 80 years-old Female weakness acute weakness COMPARISON: Chest and rib radiographs 03/28/2021 TECHNIQUE: Portable AP view the chest FINDINGS: Cardiac silhouette is enlarged. The patient is rotated. Unchanged mild blunting of the costophrenic a ngles. No pneumothorax, large pleural effusion, airspace consolidation or overt pulmonary edema. 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 Degenerative changes of the shoulders and spine. ORIF hardware of the le ft proximal humerus. IMPRESSION: No acute process. ACT 112: Negative or not required by law. The above report was generated using voice recognition software. It may contain grammatical, syntax o r spelling errors. Electronically signed by: Evgeny Weinstein M.D. 03/29/2021 4:54 PM
[2021-03-29] MEDS ORDERED: OPTIRAY 300 100mL IV ONE (17:50)
--- NOTE | 2021-03-29 18:11 | CT Scan Report ---
CT head/brain wo con CLINICAL HISTORY: 80 years-old Female with eval for trauma. Acute head trauma TECHNIQUE: Multiple axial CT images of the head were obtained without contrast. A dose lowering tech nique was utilized adhering to the principles of ALARA. COMPARISON: CT cervical spine of same day, head CT 03/28/2021 FINDINGS: No acute intracranial hemorrhage, midline shift, intracranial mass, hydrocephalus, territorial ischem ia or abnormal extra-axial collection. Age-related involutional changes. White matter hypodensities s uggestive of chronic microvascular ischemic disease. The calvarium is intact. Right scalp hematoma, 6.0 x 0.7 cm has increased in size from comparison. Pr ior bilateral lens repair. The paranasal sinuses, mastoid air cells, and middle ear cavities are tete r. IMPRESSION: 1. No acute intracranial abnormality or calvarial fracture. 2. Right parietal scalp hematoma. ACT 112: Negative or not required by law. The above report was generated using voice recognition software. It may contain grammatical, syntax o r spelling errors. Electronically signed by: Evgeny Weinstein M.D. 03/29/2021 6:10 PM
--- NOTE | 2021-03-29 18:19 | CT Scan Report ---
CT cervical spine wo con CT DOSE: 1759.54 mGy.cm CLINICAL HISTORY: 80 years-old Female with fall. Acute head and neck injury status post fall COMPARISON: CT cervical spine 03/28/2021 TECHNIQUE: Multiple axial CT images of the cervical spine were obtained without contrast. A dose low ering technique was utilized adhering to the principles of ALARA. FINDINGS: Mild rotation at C1-C2 redemonstrated, likely positional. Demineralized appearance the bone s. Moderate disc space narrowing at C5-C6 and C6-C7 with moderate to severe multilevel facet arthrosi s. Unchanged 2 mm anterolisthesis C7 on T1, likely secondary to chronic facet arthrosis. Evaluation c entral canal and neuroforamina is better assessed by MRI. Multilevel neural foraminal stenosis. No pn eumothorax. Diminutive thyroid. Unremarkable soft tissues. Unchanged minimal superior endplate compre ssion at T1. IMPRESSION: No acute fracture or subluxation. ACT 112: Negative or not required by law. The above report was generated using voice recognition software. It may contain grammatical, syntax o r spelling errors. Electronically signed by: Evgeny Weinstein M.D. 03/29/2021 6:18 PM
--- NOTE | 2021-03-29 18:32 | CT Scan Report ---
CHEST CT WITH CONTRAST HISTORY: Acute chest and abdominal trauma status post fall eval for fall TECHNIQUE: Multiaxial CT images of the chest, abdomen and pelvis were performed following the IV admi nistration of 89 cc of Optiray. A dose lowering technique was utilized adhering to the principles o f ALARA. COMPARISON: CT chest, abdomen and pelvis 08/16/2018. FINDINGS: CT CHEST: No thyroid nodule. No adenopathy. Mild cardiomegaly with moderate to extensive coronary artery calcif ications. No thoracic aortic aneurysm or mediastinal hematoma. The opacified pulmonary artery is unre markable. Trace left pleural effusion. No pneumothorax. Mild bibasilar atelectasis. There are no suspicious pul monary nodules or masses. The central airways are patent. Unremarkable soft tissues. Streak artifact from left proximal humeral ORIF hardware. Healed chronic right-sided rib fractures. Acute versus suba cute appearing nondisplaced fracture of the anterolateral left third rib. There are acute fractures o f the anterolateral left fourth through seventh ribs with only minimal displacement. There is mild mcclain perior endplate compression of the T3 vertebral body of approximately 25%, new from comparison. No re tropulsion. CT ABDOMEN/PELVIS: No pneumatosis or pneumoperitoneum. The spleen, mildly atrophic pancreas, adrenal glands and gallblad elizabet are unremarkable. Unchanged 2.0 cm hypodensity left hepatic lobe near the falciform ligament, lik castillo benign. Patency of the hepatic and portal veins. Renal sinus cysts of the left kidney. No hydrone phrosis. Urinary bladder wall thickening with partial distention. Unremarkable uterus and adnexa. Mil d mixed plaque of the abdominal aorta without aneurysm. No adenopathy. Small hiatal hernia. No bowel obstruction or bowel wall thickening. Mild fecal retention. Normal appe ndix. Tiny fat filled periumbilical hernia. Mild subcutaneous edema lateral to the right hip. No acut e fracture identified. IMPRESSION: 1. Acute versus subacute nondisplaced fracture of the anterolateral left third rib with acute minimal ly displaced fractures of the left fourth through seventh ribs. No pneumothorax. 2. T3 compression deformity is new from comparison and is likely acute or subacute. No retropulsion. 3. Mild subcutaneous edema lateral to the right hip. No acute fracture identified 4. Additional incidental findings as above. ACT 112: Negative or not required by law. Electronically signed by: Evgeny Weinstein M.D. 03/29/2021 6:31 PM
[2021-03-29 19:24] LABS: Influenza A virus by PCR Negative (Neg); Influenza B virus by PCR Negative (Neg); RSV by PCR Negative (Neg)
[2021-03-29 19:45] LABS: SARS CoV2 RNA(COVID-19) InHosp POSITIVE (Negative)
--- NOTE | 2021-03-29 20:45 | History & Physical Report ---
Date of Service March 29, 2021 Assessment & Plan (1) Head injury: Right parietal scalp hematoma Present on Admission?: Yes (2) Fall: Status post fall of undetermined etiology, but patient reports was mechanical. We will consult PT/OT for assessment for need for inpatient rehab after discharge Present on Admission?: Yes (3) COVID-19 virus infection: Patient noted to be mildly hypoxic with pulse ox room air of 94%. She has had symptoms of significant generalized weakness, and likely has led to her falls Placed on Decadron 6 mg IV every morning with first dose now Zinc sulfate 220 mg p.o. every morning Vitamin D 5000 international units p.o. every morning Ventolin HFA 2 puffs every 2 hours as needed Present on Admission?: Yes (4) Paroxysmal atrial fibrillation with RVR: Monitor on telemetry for potential for return of arrhythmia as cause of falls Present on Admission?: Yes (5) Hypothyroidism: Continue levothyroxine 5 mcg daily Present on Admission?: Yes (6) Anxiety: Continue gabapentin, lamotrigine and paroxetine Present on Admission?: Yes (7) Rib fracture: Patient denies significant pains of rib fractures or T3 compression fracture area. Acetaminophen 650 mg p.o. every 6 hours as needed pain or fever If develops more pain, would use Lidoderm patch during the day and Voltaren gel at nighttime Present on Admission?: Yes (8) Weakness: Consult PT/OT as noted, determine if patient is a candidate for inpatient rehab Present on Admission?: Yes History of Present Illness Chief Complaint: The patient presents to the emergency department after being found slumped over the wheel of her car in a [employer] parking lot. Primary Care Provider: Connor Wood MD The patient is a 80-year-old female with a past medical history including paroxysmal atrial fibrillation with RVR, hypothyroidism, anxiety, postherpetic neuralgia, rib fracture, weakness, GERD, anxiety with depression. She presents to the emergency department after being found slumped over the wheel of her car at [employer] parking [place]. She reports that this happened because she just fell asleep because she was tired because of not getting enough sleep. However, she has been falling more frequently recently, and has been to the emergency department yesterday where she was found to have therefore broken ribs and T3 compression fracture. She reports taking her medications as directed. She did have the COVID-19 vaccine x1 Work-up in the emergency department included the following imaging: CT of head showed a right parietal scalp hematoma. CT cervical spine showed multilevel degenerative disc disease. CT scan of the chest/abdomen and pelvis showed anterior lateral left third rib fracture that was nondisplaced, and left 4 through 7 minimally displaced rib fractures. T3 compression deformity fracture. Laboratories included COVID-19 test being positive. Pulse ox was noted to be 94% on room air, and the patient denied being short of breath, but admittedly is not very physically active Allergies Allergy/AdvReac Type Severity Reaction Status Date / Time No Known Allergies Allergy Verified 03/29/21 16:55 Home Medications Medication Instructions Recorded Confirmed Type Caltrate 600 plus D 1 tab PO QAM 08/16/18 03/29/21 History cholecalciferol (vitamin D3) 0 unit PO QAM 08/16/18 03/29/21 History [Vitamin D3] levothyroxine 75 mcg PO QAM 08/16/18 03/29/21 History omeprazole 20 mg PO QAM 08/16/18 03/29/21 History vitamin B complex [B-Complex] 1 tab PO QAM 08/16/18 03/29/21 History acetaminophen [Pain Reliever] 1,000 mg PO DIRECTED PRN 09/06/18 03/29/21 History dsyhvnjcoonc-rvwrkbyq-rgwjcz 1 tab PO DAILY 09/06/18 03/29/21 History [Multivitamin 50 Plus] gabapentin 300 mg PO BID 03/28/21 03/29/21 History lamotrigine 150 mg PO HS 03/28/21 03/29/21 History omega 4-ldq-yay-fish oil [Fish Oil] 1 cap PO DAILY 03/28/21 03/29/21 History paroxetine HCl 20 mg PO HS 03/28/21 03/29/21 History vit C,V-Ya-iljil-lutein-zeaxan 1 tab PO AMHS 03/28/21 03/29/21 History [PreserVision AREDS-2] Past Med/Surg History Medical History (Updated 03/30/21 @ 02:59 by Ike Pérez MD) Anxiety Cellulitis Cellulitis Heart murmur Patient will be scheduled for an echocardiogram she is no recollection of being told that she had a heart murmur Hypothyroidism Paroxysmal atrial fibrillation with RVR Postherpetic neuralgia Rib fracture Weakness Social History Smoking Status: Never smoker Second Hand Exposure: No; Hx Alcohol Use: No Hx Substance Use: No Preferred Language: Frisian Communication Ability: Effective Physical Therapist Clinic Director Required: No Beliefs That Will Affect Care: None marital status: Single Current Living Situation: Alone current occupational status: retired How many Children do You have: 0 Other Information That Helps Us Care for You: No Feels Safe at Home: Yes Safety Concerns: Feels Safe At This Time Assistive Devices: None Review of Systems Review of Systems: The patient denies chest pain, palpitations, shortness of breath, dyspnea on exertion, cough, lower extremity swelling, sore throat, fevers, chills, sweats, nausea, vomiting, diarrhea , constipation, abdominal pain, pelvic pain, blood in urine or stool, dysuria, urinary frequency or urgency, lightheadedness, dizziness, headache, memory loss, loss of consciousness, rash, abnormal bruising or bleeding, focal weakness, numbness or tingling in arms or legs, generalized arthralgias or myalgias, neck pain, or night sweats. The review of systems is otherwise negative other than for that already noted above, and at least 10 systems have been reviewed. Physical Exam Physical Exam: The patient is awake, alert and oriented 3, well developed and well nourished, right parietal scalp hematoma, lying in bed and in no acute distress. HEENT--PERRL, EOMI, mucous membranes and oropharynx dry. Neck--supple. No JVD. No bruits. Thyroid normal, trachea midline, no adenopa thy. Heart--normal S1 and S2. No murmurs, rubs or gallops. Lungs--clear bilaterally, no respiratory distress, no accessory muscle use. Abdomen--normal bowel sounds and soft. Nontender. Nondistended, no hernias or masses, no organomegaly. Extremities--no cyanosis or clubbing. No edema. Dermatologic--normal skin turgor, normal color, no abnormal lymph nodes, no rash. Neurologic--cranial nerves II through XII grossly intact. Rheumatologic--limited exam due to generalized joint and muscle pains Psychiatric--normal affect. Results & Data Results & Data ([facility]) Vital Signs (Past 12 Hours) Vital Signs Temp Pulse Resp BP Pulse Ox 03/29/21 20:00 72 21 153/75 H 95 03/29/21 19:56 99.6 F 03/29/21 19:50 70 14 03/29/21 19:40 69 10 L 03/29/21 19:30 71 17 127/58 L 03/29/21 19:20 73 16 03/29/21 19:10 74 10 L 03/29/21 19:00 73 6 L 135/58 L 03/29/21 18:50 72 6 L 03/29/21 18:40 73 16 03/29/21 18:30 74 21 107/50 L 96 03/29/21 18:20 75 16 141/69 H 95 03/29/21 17:30 74 17 143/58 H 94 03/29/21 17:00 74 17 127/49 L 95 03/29/21 16:30 79 22 126/61 96 03/29/21 16:12 76 24 121/55 L 98 03/29/21 15:54 98.1 F 84 16 131/69 96 03/29/21 15:49 77 21 131/69 96 Laboratory Results Laboratory Results WBC 5.45 K/uL (4.8-10.8) 03/29/21 16:13 RBC 3.85 M/uL (4.2-5.4) L 03/29/21 16:13 Hgb 11.2 g/dL (12.0-16.0) L 03/29/21 16:13 Hct 34.6 % (37-47) L 03/29/21 16:13 MCV 89.9 fL (80-100) 03/29/21 16:13 MCH 29.1 pg (25-34) 03/29/21 16:13 MCHC 32.4 g/dL (32-36) 03/29/21 16:13 RDW Std Deviation 43.8 fL (36.4-46.3) 03/29/21 16:13 RDW Coeff of Benita 13.4 % (11.5-14.5) 03/29/21 16:13 Plt Count 287 K/uL (130-400) 03/29/21 16:13 MPV 8.7 fL (7.4-10.4) 03/29/21 16:13 Immature Gran % (Auto) 0.0 % 03/29/21 16:13 Neut % (Auto) 56.2 % 03/29/21 16:13 Lymph % (Auto) 32.7 % 03/29/21 16:13 Cooke % (Auto) 8.1 % 03/29/21 16:13 Eos % (Auto) 2.6 % 03/29/21 16:13 Baso % (Auto) 0.4 % 03/29/21 16:13 Neut # (Auto) 3.07 K/uL (1.4-6.5) 03/29/21 16:13 Lymph # (Auto) 1.78 K/uL (1.2-3.4) 03/29/21 16:13 Cooke # (Auto) 0.44 K/uL (0.11-0.59) 03/29/21 16:13 Eos # (Auto) 0.14 K/uL (0-0.5) 03/29/21 16:13 Baso # (Auto) 0.02 K/uL (0-0.2) 03/29/21 16:13 Immature Gran # (Auto) 0.00 K/uL (0.00-0.02) 03/29/21 16:13 Sodium 141 mmol/L (136-145) 03/29/21 16:13 Potassium 3.8 mmol/L (3.5-5.1) 03/29/21 16:13 Chloride 106 mmol/L (98-107) 03/29/21 16:13 Carbon Dioxide 30 mmol/L (21-32) 03/29/21 16:13 Anion Gap 5.0 (3-11) 03/29/21 16:13 BUN 12 mg/dl (7-18) 03/29/21 16:13 Creatinine 0.83 mg/dl (0.6-1.2) 03/29/21 16:13 Est Cr Clr Drug Dosing 48.2 ml/min 03/29/21 16:13 Est GFR ( Amer) 77.7 03/29/21 16:13 Est GFR (Non-Af Amer) 67.1 03/29/21 16:13 BUN/Creatinine Ratio 14.1 (10-20) 03/29/21 16:13 Glucose 102 mg/dl (70-99) H 03/29/21 16:13 Calcium 8.8 mg/dl (8.5-10.1) 03/29/21 16:13 Total Bilirubin 0.8 mg/dl (0.2-1) 03/29/21 16:13 AST 32 U/L (15-37) 03/29/21 16:13 ALT 36 U/L (12-78) 03/29/21 16:13 Alkaline Phosphatase 133 U/L (45-117) H 03/29/21 16:13 Troponin I < 0.015 ng/ml (0-0.045) 03/29/21 16:13 Total Protein 6.2 gm/dl (6.4-8.2) L 03/29/21 16:13 Albumin 2.8 gm/dl (3.4-5.0) L 03/29/21 16:13 Globulin 3.4 gm/dl (2.5-4.0) 03/29/21 16:13 Albumin/Globulin Ratio 0.8 (0.9-2) L 03/29/21 16:13 TSH 1.500 uIu/ml (0.300-4.500) 03/29/21 16:13 COVID-19 Eval Order [facility]FluRsv at [facility] 03/29/21 18:20 SARS-CoV-2 (PCR) POSITIVE (Negative) A* 03/29/21 18:20 Influenza Type A (PCR) Negative (Neg) 03/29/21 18:20 Influenza Type B (PCR) Negative (Neg) 03/29/21 18:20 RSV (RT-PCR) Negative (Neg) 03/29/21 18:20 Impressions Chest X-Ray 03/29/21 16:14 XR chest 1V portable HISTORY: 80 years-old Female weakness acute weakness COMPARISON: Chest and rib radiographs 03/28/2021 TECHNIQUE: Portable AP view the chest FINDINGS: Cardiac silhouette is enlarged. The patient is rotated. Unchanged mild blunting of the costophrenic angles. No pneumothorax, large pleural effusion, airspace consolidation or overt pulmonary edema. Chronic interstitial coarsening. Degenerative changes of the shoulders and spine. ORIF hardware of the left proximal humerus. IMPRESSION: No acute process. ACT 112: Negative or not required by law. The above report was generated using voice recognition software. It may contain grammatical, syntax or spelling errors. Electronically signed by: Evgeny Weinstein M.D. 03/29/2021 4:54 PM Abdomen/Pelvis CT 03/29/21 16:[address] WITH CONTRAST HISTORY: Acute chest and abdominal trauma status post fall eval for fall TECHNIQUE: Multiaxial CT images of the chest, abdomen and pelvis were performed following the IV administration of 89 cc of Optiray. A dose lowering technique was utilized adhering to the principles of ALARA. COMPARISON: CT chest, abdomen and pelvis 08/16/2018. FINDINGS: CT CHEST: No thyroid nodule. No adenopathy. Mild cardiomegaly with moderate to extensive coronary artery calcifications. No thoracic aortic aneurysm or mediastinal hematoma. The opacified pulmonary artery is unremarkable. Trace left pleural effusion. No pneumothorax. Mild bibasilar atelectasis. There are no suspicious pulmonary nodules or masses. The central airways are patent. Unremarkable soft tissues. Streak artifact from left proximal humeral ORIF hardware. Healed chronic right-sided rib fractures. Acute versus subacute appearing nondisplaced fracture of the anterolateral left third rib. There are acute fractures of the anterolateral left fourth through seventh ribs with only minimal displacement. There is mild superior endplate compression of the T3 vertebral body of approximately 25%, new from comparison. No retropulsion. CT ABDOMEN/PELVIS: No pneumatosis or pneumoperitoneum. The spleen, mildly atrophic pancreas, adrenal glands and gallbladder are unremarkable. Unchanged 2.0 cm hypodensity left hepatic lobe near the falciform ligament, likely benign. Patency of the hepatic and portal veins. Renal sinus cysts of the left kidney. No hydronephrosis. Urinary bladder wall thickening with partial distention. Un remarkable uterus and adnexa. Mild mixed plaque of the abdominal aorta without aneurysm. No adenopathy. Small hiatal hernia. No bowel obstruction or bowel wall thickening. Mild fecal retention. Normal appendix. Tiny fat filled periumbilical hernia. Mild subcutaneous edema lateral to the right hip. No acute fracture identified. IMPRESSION: 1. Acute versus subacute nondisplaced fracture of the anterolateral left third rib with acute minimally displaced fractures of the left fourth through seventh ribs. No pneumothorax. 2. T3 compression deformity is new from comparison and is likely acute or subacute. No retropulsion. 3. Mild subcutaneous edema lateral to the right hip. No acute fracture identified 4. Additional incidental findings as above. ACT 112: Negative or not required by law. Electronically signed by: Evgeny Weinstein M.D. 03/29/2021 6:[address] 03/29/21 16:45 CT cervical spine wo con CT DOSE: 1759.54 mGy.cm CLINICAL HISTORY: 80 years-old Female with fall. Acute head and neck injury status post fall COMPARISON: CT cervical spine 03/28/2021 TECHNIQUE: Multiple axial CT images of the cervical spine were obtained without contrast. A dose lowering technique was utilized adhering to the principles of ALARA. FINDINGS: Mild rotation at C1-C2 redemonstrated, likely positional. Demineralized appearance the bones. Moderate disc space narrowing at C5-C6 and C6-C7 with moderate to severe multilevel facet arthrosis. Unchanged 2 mm anterolisthesis C7 on T1, likely secondary to chronic facet arthrosis. Evaluation central canal and neuroforamina is better assessed by MRI. Multilevel neural foraminal stenosis. No pneumothorax. Diminutive thyroid. Unremarkable soft tissues. Unchanged minimal superior endplate compression at T1. IMPRESSION: No acute fracture or subluxation. ACT 112: Negative or not required by law. The above report was generated using voice recognition software. It may contain grammatical, syntax or spelling errors. Electronically signed by: Evgeny Weinstein M.D. 03/29/2021 6:[address] 03/29/21 16:[address] WITH CONTRAST HISTORY: Acute chest and abdominal trauma status post fall eval for fall TECHNIQUE: Multiaxial CT images of the chest, abdomen and pelvis were performed following the IV administration of 89 cc of Optiray. A dose lowering technique was utilized adhering to the principles of ALARA. COMPARISON: CT chest, abdomen and pelvis 08/16/2018. FINDINGS: CT CHEST: No thyroid nodule. No adenopathy. Mild cardiomegaly with moderate to extensive coronary artery calcifications. No thoracic aortic aneurysm or mediastinal hematoma. The opacified pulmonary artery is unremarkable. Trace left pleural effusion. No pneumothorax. Mild bibasilar atelectasis. There are no suspicious pulmonary nodules or masses. The central airways are patent. Unremarkable soft tissues. Streak artifact from left proximal humeral ORIF hardware. Healed chronic right-sided rib fractures. Acute versus subacute appearing nondisplaced fracture of the anterolateral left third rib. There are acute fractures of the anterolateral left fourth through seventh ribs with only minimal displacement. There is mild superior endplate compression of the T3 vertebral body of approximately 25%, new from comparison. No retropulsion. CT ABDOMEN/PELVIS: No pneumatosis or pneumoperitoneum. The spleen, mildly atrophic pancreas, adrenal glands and gallbladder are unremarkable. Unchanged 2.0 cm hypodensity left hepatic lobe near the falciform ligament, likely benign. Patency of the hepatic and portal veins. Renal sinus cysts of the left kidney. No hydronephrosis. Urinary bladder wall thickening with partial distention. Unremarkable uterus and adnexa. Mild mixed plaque of the abdominal aorta without aneurysm. No adenopathy. Small hiatal hernia. No bowel obstruction or bowel wall thickening. Mild fecal retention. Normal appendix. Tiny fat filled periumbilical hernia. Mild subcutaneous edema lateral to the right hip. No acute fracture identified. IMPRESSION: 1. Acute versus subacute nondisplaced fracture of the anterolateral left third rib with acute minimally displaced fractures of the left fourth through seventh ribs. No pneumothorax. 2. T3 compression deformity is new from comparison and is likely acute or subacute. No retropulsion. 3. Mild subcutaneous edema lateral to the right hip. No acute fracture identified 4. Additional incidental findings as above. ACT 112: Negative or not required by law. Electronically signed by: Evgeny Weinstein M.D. 03/29/2021 6:[address] 03/29/21 16:45 CT head/brain wo con CLINICAL HISTORY: 80 years-old Female with eval for trauma. Acute head trauma TECHNIQUE: Multiple axial CT images of the head were obtained without contrast. A dose lowering technique was utilized adhering to the principles of ALARA. COMPARISON: CT cervical spine of same day, head CT 03/28/2021 FINDINGS: No acute intracranial hemorrhage, midline shift, intracranial mass, hydrocephalus, territorial ischemia or abnormal extra-axial collection. Age- related involutional changes. White matter hypodensities suggestive of chronic microvascular ischemic disease. The calvarium is intact. Right scalp hematoma, 6.0 x 0.7 cm has increased in size from comparison. Prior bilateral lens repair. The paranasal sinuses, mastoid air cells, and middle ear cavities are clear. IMPRESSION: 1. No acute intracranial abnormality or calvarial fracture. 2. Right parietal scalp hematoma. ACT 112: Negative or not required by law. The above report was generated using voice recognition software. It may contain grammatical, syntax or spelling errors. Electronically signed by: Evgeny Weinstein M.D. 03/29/2021 6:10 PM Code Status & VTE Plan Code Status Full code VTE Prophylaxis Plan VTE Prophylaxis will be ordered: Yes PG Care Time/CCT Total # of Minutes Spent Total Time Spent with Patient: Total time spent is greater than 50% in coordination of care (as documented) at patient's floor/unit and/or counseling patient: Coding Level of Care Code 10256 Initial Inpt Care Lvl 3 Diagnoses Head injury S09.90XA Fall W19.XXXA COVID-19 virus infection U07.1 Paroxysmal atrial fibrillation with RVR I48.0 Hypothyroidism E03.9 Hypothyroidism type: acquired Anxiety F41.9 Rib fracture S22.41XD Encounter type: subsequent encounter Rib fracture type: multiple ribs Fracture type: closed Laterality: right Fracture healing: with routine healing Weakness R53.1 (1) Hypothyroidism Hypothyroidism type: acquired Qualified Code(s): E03.9 - Hypothyroidism, unspecified (2) Rib fracture Encounter type: subsequent encounter Rib fracture type: multiple ribs Fracture type: closed Laterality: right Fracture healing: with routine healing Qualified Code(s): S22.41XD - Multiple fractures of ribs, right side, subsequent encounter for fracture with routine healing
[2021-03-29] MEDS ORDERED: dexAMETHasone 6 MG in SYRINGE 0 ML IV ONE (22:03)
[2021-03-29] MEDS ORDERED: ALBUTEROL HFA 8 GM INHALER INH PRN (22:03)
[2021-03-29] MEDS ORDERED: ONDANSETRON INJ 2 MG/ML 2 ML VIAL IV PRN (22:03)
[2021-03-29] MEDS: CEROVITE ADV FORMULA TAB PO SCH (22:53)
[2021-03-29] MEDS: GABAPENTIN 300 MG CAP PO SCH (22:53)
[2021-03-29] MEDS: HEPARIN SOD 5,000 UNIT/0.5 ML VIAL SQ SCH (22:54)
[2021-03-29] MEDS: NSS + 20MEQ KCL 20 MEQ/1,000 ML BAG IV SCH (22:54)
[2021-03-29] MEDS: lamoTRIgine 100 MG TAB PO SCH (22:54)
[2021-03-29] MEDS: PARoxetine HCL 20 MG TAB PO SCH (22:54)
--- NOTE | 2021-03-29 23:14 | Electrocardiogram Report ---
Test Reason : Blood Pressure : / mmHG Vent. Rate : 083 BPM Atrial Rate : 083 BPM P-R Int : 130 ms QRS Dur : 082 ms QT Int : 392 ms P-R-T Axes : 040 032 023 degrees QTc Int : 460 ms Normal sinus rhythm Normal ECG When compared with ECG of 18-AUG-2018 06:48, No significant change was found Confirmed by Pernell Couch ([id number]) on 03/29/2021 11:13:32 PM Referred By: Confirmed By:Pernell Couch
[2021-03-29] MEDS: ACETAMINOPHEN 325 MG TAB PO PRN (23:16)
[2021-03-30] MEDS: LEVOTHYROXINE SODIUM 75 MCG TABLET PO SCH (06:01)
[2021-03-30 07:06] LABS: Basophils # (auto) 0.01 K/uL (0-0.2); Basophils % (auto) 0.2 %; Eosinophils % (auto) 3.8 %; Hematocrit (blood only) 33.7 % (37-47); Hemoglobin 10.8 g/dL (12.0-16.0); Immature Granulocytes # (auto) 0.01 K/uL (0.00-0.02); Immature Granulocytes % (auto) 0.2 %; Lymphocytes # (auto) 1.87 K/uL (1.2-3.4); Lymphocytes % (auto) 35.5 %; Mean Corpuscular Hemoglobin 29.1 pg (25-34); Mean Corpuscular Volume 90.8 fL (80-100); Mean Platelet Volume 8.7 fL (7.4-10.4); Monocytes # (auto) 0.44 K/uL (0.11-0.59); Monocytes % (auto) 8.3 %; Neutrophils # (auto) 2.74 K/uL (1.4-6.5); Platelet Count 275 K/uL (130-400); RDW Coefficient of Variation 13.5 % (11.5-14.5); RDW Standard Deviation 45.3 fL (36.4-46.3); Red Blood Count 3.71 M/uL (4.2-5.4); White Blood Count 5.27 K/uL (4.8-10.8)
[2021-03-30 07:23] LABS: Albumin Level 2.6 gm/dl (3.4-5.0); BUN Creatinine Ratio 17.7 (10-20); Calcium 8.3 mg/dl (8.5-10.1); Creatinine Clr Calc Pharmacy 54.7 ml/min; Est GFR (African American) 90.8; Est GFR (Non-African American) 78.3; Potassium 4.3 mmol/L (3.5-5.1)
[2021-03-30 07:26] LABS: Albumin Globulin Ratio 0.9 (0.9-2); Bilirubin,Total 0.8 mg/dl (0.2-1); Total Protein 5.6 gm/dl (6.4-8.2)
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
[2021-03-30] MEDS: PANTOprazole 40 MG TAB PO SCH (08:27)
[2021-03-30] MEDS: VITAMIN B COMPLEX TAB PO SCH (08:28)
[2021-03-30] MEDS: ZINC SULFATE 220 MG CAPSULE PO SCH (08:28)
[2021-03-30] MEDS: GABAPENTIN 300 MG CAP PO SCH ×3 (08:28→20:53)
[2021-03-30] MEDS: OMEGA-3 (PURIFIED FISH OIL) 1 GM CAP PO SCH (08:28)
[2021-03-30] MEDS: CALCIUM 600MG + VIT D 400 IU TAB PO SCH (08:28)
[2021-03-30] MEDS: CHOLECALCIFEROL 1,000 UNITS 25 MCG TAB PO SCH (08:28)
[2021-03-30] MEDS: CEROVITE ADV FORMULA TAB PO SCH ×2 (08:28→20:53)
[2021-03-30] MEDS: dexAMETHasone 6 MG in SYRINGE 0 ML IV SCH (08:28)
[2021-03-30] MEDS: HEPARIN SOD 5,000 UNIT/0.5 ML VIAL SQ SCH ×2 (08:29→20:53)
[2021-03-30] MEDS ORDERED: NON-FORMULARY MEDICATION (Cholecalciferol (Vitamin D3) [Vitamin D3] 2,000 unit Tablet) PO SCH (09:00)
[2021-03-30] MEDS ORDERED: NON-FORMULARY MEDICATION (Multivitamin-Minerals-Lutein [Multivitamin 50 Plus] Tablet) PO SCH (09:00)
[2021-03-30 09:55] LABS: Appearance Urine Clear (Clear); Bilirubin Urine Negative (Negative); Blood Urine Negative (Negative); Color Urine Dark Yellow; Glucose Urine UA Negative (Negative); Ketones Urine 1+ (Negative); Leukocyte Esterase Urine Negative (Negative); Nitrite Urine Negative (Negative); Protein Urine Negative (Negative); Specific Gravity Urine > 1.045 (1.000-1.030); Urobilinogen Urine Negative (Negative); pH Urine 5.5 (4.5-7.5)
[2021-03-30] MEDS: NSS + 20MEQ KCL 20 MEQ/1,000 ML BAG IV SCH (15:04)
[2021-03-30] MEDS: ACETAMINOPHEN 325 MG TAB PO PRN (18:24)
[2021-03-30] MEDS: lamoTRIgine 100 MG TAB PO SCH (20:52)
[2021-03-30] MEDS: PARoxetine HCL 20 MG TAB PO SCH (20:52)
[2021-03-31] MEDS: LEVOTHYROXINE SODIUM 75 MCG TABLET PO SCH (05:44)
[2021-03-31] MEDS: NSS + 20MEQ KCL 20 MEQ/1,000 ML BAG IV SCH ×2 (05:44→22:46)
[2021-03-31 06:25] LABS: Basophils # (auto) 0.01 K/uL (0-0.2); Basophils % (auto) 0.1 %; Eosinophils # (auto) 0.12 K/uL (0-0.5); Eosinophils % (auto) 1.8 %; Hematocrit (blood only) 31.4 % (37-47); Immature Granulocytes # (auto) 0.01 K/uL (0.00-0.02); Immature Granulocytes % (auto) 0.1 %; Lymphocytes # (auto) 1.88 K/uL (1.2-3.4); Lymphocytes % (auto) 27.8 %; Mean Corpuscular Hemoglobin 28.9 pg (25-34); Mean Corpuscular Hgb Conc 31.8 g/dL (32-36); Mean Corpuscular Volume 90.8 fL (80-100); Mean Platelet Volume 8.9 fL (7.4-10.4); Monocytes # (auto) 0.84 K/uL (0.11-0.59); Monocytes % (auto) 12.4 %; Neutrophils % (auto) 57.8 %; Platelet Count 284 K/uL (130-400); RDW Coefficient of Variation 13.5 % (11.5-14.5); RDW Standard Deviation 45.1 fL (36.4-46.3); Red Blood Count 3.46 M/uL (4.2-5.4); White Blood Count 6.76 K/uL (4.8-10.8)
[2021-03-31 07:16] LABS: Albumin Level 2.4 gm/dl (3.4-5.0); BUN Creatinine Ratio 20.7 (10-20); Calcium 8.3 mg/dl (8.5-10.1); Creatinine Clr Calc Pharmacy 45.3 ml/min; Est GFR (African American) 72.4; Est GFR (Non-African American) 62.5; Potassium 4.5 mmol/L (3.5-5.1)
[2021-03-31 07:17] LABS: Albumin Globulin Ratio 0.8 (0.9-2); Bilirubin,Total 0.3 mg/dl (0.2-1); Globulin 3.2 gm/dl (2.5-4.0); Total Protein 5.6 gm/dl (6.4-8.2)
[2021-03-31] MEDS: dexAMETHasone 6 MG in SYRINGE 0 ML IV SCH (08:28)
[2021-03-31] MEDS: OMEGA-3 (PURIFIED FISH OIL) 1 GM CAP PO SCH (08:28)
[2021-03-31] MEDS: HEPARIN SOD 5,000 UNIT/0.5 ML VIAL SQ SCH ×2 (08:28→20:50)
[2021-03-31] MEDS: CALCIUM 600MG + VIT D 400 IU TAB PO SCH (08:28)
[2021-03-31] MEDS: GABAPENTIN 300 MG CAP PO SCH ×2 (08:28→20:48)
[2021-03-31] MEDS: CHOLECALCIFEROL 1,000 UNITS 25 MCG TAB PO SCH (08:28)
[2021-03-31] MEDS: VITAMIN B COMPLEX TAB PO SCH (08:29)
[2021-03-31] MEDS: PANTOprazole 40 MG TAB PO SCH (08:29)
[2021-03-31] MEDS: ZINC SULFATE 220 MG CAPSULE PO SCH (08:29)
[2021-03-31] MEDS: CEROVITE ADV FORMULA TAB PO SCH ×2 (08:29→20:47)
--- NOTE | 2021-03-31 16:36 | Hospitalist Progress Note ---
Date of Service March 31, 2021 Assessment & Plan (1) Head injury: Right parietal scalp hematoma continues improving with local care (2) Fall: Status post fall of undetermined etiology, but patient reports was mechanical. Patient admits to falling frequently at home PT/OT supportive of inpatient rehab after discharge Pending Covid testing for confirmation (3) COVID-19 virus infection: Patient noted to be mildly hypoxic with pulse ox room air of 94%. Has not been hypoxic since Has had improvement of her cognition and mental status since admission Placed on Decadron 6 mg IV patient has no other pulmonary symptoms to warrant consideration of other medications Zinc sulfate 220 mg p.o. every morning Vitamin D 5000 international units p.o. every morning Ventolin HFA 2 puffs every 2 hours as needed (4) Paroxysmal atrial fibrillation with RVR: Patient is in sinus rhythm on her intake monitor EKG. Atrial fibrillation is by history, although typically not on rate controlling medication her frequent falling makes concerns for starting anticoagulation in this patient Paroxysmal rapid rate could be associated with her falling episodes continue to monitor and watch for tachycardia (5) Hypothyroidism: Continue levothyroxine 75 mcg daily (6) Anxiety: Continue gabapentin, lamotrigine and paroxetine (7) Rib fracture: Patient denies significant pains of rib fractures or T3 compression fracture area. Acetaminophen 650 mg p.o. every 6 hours as needed pain or fever Patient is not requiring much in the way of pain relief (8) Weakness: Consult PT/OT as noted, recommending inpatient rehab Admission and Anticipated Discharge Date Admission Date: March 29, 2021 Subjective Patient is now more accepting of rehab she spoke to her family which are also supportive. She did show the need to require post discharge inpatient rehabilitation. Patient exhibiting no symptoms of Covid such as fever cough diarrhea or loss of taste or smell. We will retest her Covid in case initial testing is a false positive as she has no clinical signs or symptoms other than mild hypoxia but has been well with regard to her oxygen saturation on room air Review of Systems Review of Systems: Mild distress and moderate fatigue no headache, blurry or double vision no speech or swallowing issues no chest pain, pressure or palpitations no shortness of breath, cough or wheezes no abdominal pain, nausea or vomiting, diarrhea or constipation no dysuria, hematuria or frequency no focal joint pain or swelling no back pain, CVA tenderness or radicular pain no bruising, bleeding or rashes no focal signs of weakness or numbness or altered sensation no complaints of anxiety or depression.. Physical Exam Physical Exam: The patient appeared well nourished and normally developed. Vital signs as documented. Head exam is normocephalic atraumatic Neck is without JVD, thyromegaly, or carotid bruits. Lungs are clear to auscultation, no focal loss of breath sounds Cardiac exam, Rhythm is regular.. Systolic ejection murmur is heard has a history of moderate aortic regurgitation Abdominal exam reveals normal bowel sounds, soft non tender, no masses Extremities are nonedematous and both pedal pulses are present Neurologic exam is alert and oriented, however she is tangential in her thinking and sometimes repeats and is forgetful during her conversations. There is no focal loss of strength or sensation Skin is without bruises or rashes Psychologically is without concerns for some memory impairment Results & Data Results & Data ([facility]) Vital Signs (Past 12 Hours) Vital Signs Temp Pulse Pulse Resp BP Pulse Ox 03/31/21 16:00 62 03/31/21 11:42 98.1 F 90 20 140/64 97 03/31/21 08:00 98.1 F 74 71 18 110/67 97 PG Care Time/CCT Total # of Minutes Spent Total Time Spent with Patient: Total time spent is greater than 50% in coordination of care (as documented) at patient's floor/unit and/or counseling patient: Coding Level of Care Code 35994 Subseq Hosp Care Lvl 3 Diagnoses Head injury S09.90XA Fall W19.XXXA COVID-19 virus infection U07.1 Paroxysmal atrial fibrillation with RVR I48.0 Hypothyroidism E03.9 Hypothyroidism type: acquired Anxiety F41.9 Rib fracture S22.41XD Encounter type: subsequent encounter Rib fracture type: multiple ribs Fracture type: closed Laterality: right Fracture healing: with routine healing Weakness R53.1 (1) Hypothyroidism Hypothyroidism type: acquired Qualified Code(s): E03.9 - Hypothyroidism, unspecified (2) Rib fracture Encounter type: subsequent encounter Rib fracture type: multiple ribs Fracture type: closed Laterality: right Fracture healing: with routine healing Qualified Code(s): S22.41XD - Multiple fractures of ribs, right side, subsequent encounter for fracture with routine healing
--- NOTE | 2021-03-31 18:57 | Hospitalist Progress Note ---
Date of Service March 31, 2021 Assessment & Plan (1) Head injury: Right parietal scalp hematoma continues improving with local care (2) Fall: Status post fall of undetermined etiology, but patient reports was mechanical. Patient admits to falling frequently at home PT/OT supportive of inpatient rehab after discharge Pending Covid testing for confirmation (3) COVID-19 virus infection: Patient noted to be mildly hypoxic with pulse ox room air of 94%. Has not been hypoxic since Has had improvement of her cognition and mental status since admission Placed on Decadron 6 mg IV patient has no other pulmonary symptoms to warrant consideration of other medications Zinc sulfate 220 mg p.o. every morning Vitamin D 5000 international units p.o. every morning Ventolin HFA 2 puffs every 2 hours as needed (4) Paroxysmal atrial fibrillation with RVR: Patient is in sinus rhythm on her intake monitor EKG. Atrial fibrillation is by history, although typically not on rate controlling medication her frequent falling makes concerns for starting anticoagulation in this patient Paroxysmal rapid rate could be associated with her falling episodes continue to monitor and watch for tachycardia (5) Hypothyroidism: Continue levothyroxine 75 mcg daily (6) Anxiety: Continue gabapentin, lamotrigine and paroxetine (7) Rib fracture: Patient denies significant pains of rib fractures or T3 compression fracture area. Acetaminophen 650 mg p.o. every 6 hours as needed pain or fever Patient is not requiring much in the way of pain relief possible osteoporosis with current pathological fracture, ribs and T3 vertebra (8) Weakness: Consult PT/OT as noted, recommending inpatient rehab Admission and Anticipated Discharge Date Admission Date: March 29, 2021 Results & Data Results & Data ([facility]) Vital Signs (Past 12 Hours) Vital Signs Temp Pulse Pulse Resp BP Pulse Ox 03/31/21 16:00 62 03/31/21 11:42 98.1 F 90 20 140/64 97 03/31/21 08:00 98.1 F 74 71 18 110/67 97 PG Care Time/CCT Total # of Minutes Spent Total Time Spent with Patient: Total time spent is greater than 50% in coordi [place] of care (as documented) at patient's floor/unit and/or counseling patient: Coding Level of Care Code None Diagnoses Head injury S09.90XA Fall W19.XXXA COVID-19 virus infection U07.1 Paroxysmal atrial fibrillation with RVR I48.0 Hypothyroidism E03.9 Hypothyroidism type: acquired Anxiety F41.9 Rib fracture S22.41XD Encounter type: subsequent encounter Fracture healing: with routine healing Fracture type: closed Laterality: right Rib fracture type: multiple ribs Weakness R53.1 (1) Rib fracture Encounter type: subsequent encounter Fracture healing: with routine healing Fracture type: closed Laterality: right Rib fracture type: multiple ribs Qualified Code(s): S22.41XD - Multiple fractures of ribs, right side, subsequent encounter for fracture with routine healing (2) Hypothyroidism Hypothyroidism type: acquired Qualified Code(s): E03.9 - Hypothyroidism, unspecified
[2021-03-31] MEDS: ACETAMINOPHEN 325 MG TAB PO PRN (20:48)
[2021-03-31] MEDS: PARoxetine HCL 20 MG TAB PO SCH (20:48)
[2021-03-31] MEDS: lamoTRIgine 100 MG TAB PO SCH (20:50)
[2021-04-01] MEDS: LEVOTHYROXINE SODIUM 75 MCG TABLET PO SCH (05:42)
[2021-04-01 07:13] LABS: Basophils # (auto) 0.01 K/uL (0-0.2); Basophils % (auto) 0.1 %; Eosinophils # (auto) 0.11 K/uL (0-0.5); Eosinophils % (auto) 1.4 %; Hematocrit (blood only) 32.4 % (37-47); Hemoglobin 10.6 g/dL (12.0-16.0); Immature Granulocytes # (auto) 0.02 K/uL (0.00-0.02); Immature Granulocytes % (auto) 0.2 %; Lymphocytes # (auto) 2.85 K/uL (1.2-3.4); Lymphocytes % (auto) 35.1 %; Mean Corpuscular Hemoglobin 29.4 pg (25-34); Mean Corpuscular Hgb Conc 32.7 g/dL (32-36); Mean Platelet Volume 8.9 fL (7.4-10.4); Monocytes # (auto) 0.77 K/uL (0.11-0.59); Monocytes % (auto) 9.5 %; Neutrophils # (auto) 4.36 K/uL (1.4-6.5); Neutrophils % (auto) 53.7 %; Platelet Count 276 K/uL (130-400); RDW Coefficient of Variation 13.6 % (11.5-14.5); RDW Standard Deviation 44.8 fL (36.4-46.3); White Blood Count 8.12 K/uL (4.8-10.8)
[2021-04-01 08:00] LABS: Albumin Level 2.6 gm/dl (3.4-5.0); BUN Creatinine Ratio 23.4 (10-20); Calcium 8.8 mg/dl (8.5-10.1); Creatinine Clr Calc Pharmacy 46.3 ml/min; Est GFR (African American) 74.5; Est GFR (Non-African American) 64.3; Potassium 4.6 mmol/L (3.5-5.1)
[2021-04-01 08:03] LABS: Albumin Globulin Ratio 0.8 (0.9-2); Bilirubin,Total 0.4 mg/dl (0.2-1); Globulin 3.2 gm/dl (2.5-4.0); Total Protein 5.8 gm/dl (6.4-8.2)
[2021-04-01] MEDS: dexAMETHasone 6 MG in SYRINGE 0 ML IV SCH (08:22)
[2021-04-01] MEDS: GABAPENTIN 300 MG CAP PO SCH ×2 (08:23→21:57)
[2021-04-01] MEDS: ZINC SULFATE 220 MG CAPSULE PO SCH (08:23)
[2021-04-01] MEDS: OMEGA-3 (PURIFIED FISH OIL) 1 GM CAP PO SCH (08:24)
[2021-04-01] MEDS: VITAMIN B COMPLEX TAB PO SCH (08:24)
[2021-04-01] MEDS: CHOLECALCIFEROL 1,000 UNITS 25 MCG TAB PO SCH (08:24)
[2021-04-01] MEDS: CALCIUM 600MG + VIT D 400 IU TAB PO SCH (08:24)
[2021-04-01] MEDS: PANTOprazole 40 MG TAB PO SCH (08:24)
[2021-04-01] MEDS: CEROVITE ADV FORMULA TAB PO SCH ×2 (08:24→21:56)
[2021-04-01] MEDS: HEPARIN SOD 5,000 UNIT/0.5 ML VIAL SQ SCH ×2 (08:24→21:57)
--- NOTE | 2021-04-01 18:40 | Hospitalist Progress Note ---
Date of Service April 01, 2021 Assessment & Plan (1) Head injury: Right parietal scalp hematoma continues improving with local care (2) Fall: Status post fall of undetermined etiology, but patient reports was mechanical. Patient admits to falling frequently at home PT/OT supportive of inpatient rehab after discharge Pending Covid testing for confirmation (3) COVID-19 virus infection: Patient noted to be mildly hypoxic with pulse ox room air of 94%. Has not been hypoxic since Has had improvement of her cognition and mental status since admission Placed on Decadron 6 mg IV patient has no other pulmonary symptoms to warrant consideration of other medications Zinc sulfate 220 mg p.o. every morning Vitamin D 5000 international units p.o. every morning Ventolin HFA 2 puffs every 2 hours as needed (4) Paroxysmal atrial fibrillation with RVR: Patient is in sinus rhythm on her intake monitor EKG. Atrial fibrillation is by history, although typically not on rate controlling medication her frequent falling makes concerns for starting anticoagulation in this patient Paroxysmal rapid rate could be associated with her falling episodes continue to monitor and watch for tachycardia (5) Hypothyroidism: Continue levothyroxine 75 mcg daily (6) Anxiety: Continue gabapentin, lamotrigine and paroxetine (7) Rib fracture: Patient denies significant pains of rib fractures or T3 compression fracture area. Acetaminophen 650 mg p.o. every 6 hours as needed pain or fever Patient is not requiring much in the way of pain relief possible osteoporosis with current pathological fracture, ribs and T3 vertebra (8) Weakness: Consult PT/OT as noted, recommending inpatient rehab Admission and Anticipated Discharge Date Admission Date: March 29, 2021 Subjective Patient continues to support rehab as so does her family. She did show the need to require post discharge inpatient rehabilitation. Patient exhibiting no symptoms of Covid such as fever cough diarrhea or loss of taste or smell. did retest her Covid and remains positive . consider day 1 on 03/29/21 Review of Systems Review of Systems: Mild distress and moderate fatigue no headache, blurry or double vision no speech or swallowing issues no chest pain, pressure or palpitations no shortness of breath, cough or wheezes no abdominal pain, nausea or vomiting, diarrhea or constipation no dysuria, hematuria or frequency no focal joint pain or swelling no back pain, CVA tenderness or radicular pain no bruising, bleeding or rashes no focal signs of weakness or numbness or altered sensation no complaints of anxiety or depression.. Physical Exam Physical Exam: The patient appeared well nourished and normally developed. Vital signs as documented. Head exam is normocephalic atraumatic Neck is without JVD, thyromegaly, or carotid bruits. Lungs are clear to auscultation, no focal loss of breath sounds Cardiac exam, Rhythm is regular.. Systolic ejection murmur is heard has a history of moderate aortic regurgitation Abdominal exam reveals normal bowel sounds, soft non tender, no masses Extremities are nonedematous and both pedal pulses are present Neurologic exam is alert and oriented, however she is tangential in her thinking and sometimes repeats and is forgetful during her conversations. There is no focal loss of strength or sensation Skin is without bruises or rashes Psychologically is without concerns for some memory impairment Results & Data Results & Data ([facility]) Vital Signs (Past 12 Hours) Vital Signs Temp Pulse Pulse Resp BP Pulse Ox 04/01/21 16:00 97.9 F 68 14 127/57 L 96 04/01/21 14:51 81 04/01/21 11:25 98.1 F 63 18 127/57 L 93 04/01/21 08:44 67 04/01/21 07:25 98.2 F 72 18 148/73 H 97 PG Care Time/CCT Total # of Minutes Spent Total Time Spent with Patient: Total time spent is greater than 50% in coordination of care (as documented) at patient's floor/unit and/or counseling patient: Coding Level of Care Code 89704 Subseq Hosp Care Lvl 2 Diagnoses Head injury S09.90XA Fall W19.XXXA COVID-19 virus infection U07.1 Paroxysmal atrial fibrillation with RVR I48.0 Hypothyroidism E03.9 Hypothyroidism type: acquired Anxiety F41.9 Rib fracture S22.41XD Encounter type: subsequent encounter Rib fracture type: multiple ribs Fracture type: closed Laterality: right Fracture healing: with routine healing Weakness R53.1 (1) Hypothyroidism Hypothyroidism type: acquired Qualified Code(s): E03.9 - Hypothyroidism, unspecified (2) Rib fracture Encounter type: subsequent encounter Rib fracture type: multiple ribs Fracture type: closed Laterality: right Fracture healing: with routine healing Qualified Code(s): S22.41XD - Multiple fractures of ribs, right side, subsequent encounter for fracture with routine healing
[2021-04-01] MEDS: DICLOFENAC SOD 1% GEL 100 GM TUBE EXT SCH (21:54)
[2021-04-01] MEDS: PARoxetine HCL 20 MG TAB PO SCH (21:56)
[2021-04-01] MEDS: lamoTRIgine 100 MG TAB PO SCH (21:56)
[2021-04-02] MEDS: LEVOTHYROXINE SODIUM 75 MCG TABLET PO SCH (05:37)
[2021-04-02] MEDS: ZINC SULFATE 220 MG CAPSULE PO SCH (08:38)
[2021-04-02] MEDS: CHOLECALCIFEROL 1,000 UNITS 25 MCG TAB PO SCH (08:38)
[2021-04-02] MEDS: CEROVITE ADV FORMULA TAB PO SCH (08:38)
[2021-04-02] MEDS: dexAMETHasone 6 MG in SYRINGE 0 ML IV SCH (08:38)
[2021-04-02] MEDS: GABAPENTIN 300 MG CAP PO SCH (08:38)
[2021-04-02] MEDS: PANTOprazole 40 MG TAB PO SCH (08:38)
[2021-04-02] MEDS: DICLOFENAC SOD 1% GEL 100 GM TUBE EXT SCH (08:39)
[2021-04-02] MEDS: OMEGA-3 (PURIFIED FISH OIL) 1 GM CAP PO SCH (08:39)
[2021-04-02] MEDS: HEPARIN SOD 5,000 UNIT/0.5 ML VIAL SQ SCH (08:39)
[2021-04-02] MEDS: CALCIUM 600MG + VIT D 400 IU TAB PO SCH (08:39)
[2021-04-02] MEDS: VITAMIN B COMPLEX TAB PO SCH (08:39)
--- NOTE | 2021-04-02 18:13 | Discharge Summary ---
Date of Service April 02, 2021 Admission HPI Per Admitting Provider The patient is a 80-year-old female with a past medical history including paroxysmal atrial fibrillation with RVR, hypothyroidism, anxiety, postherpetic neuralgia, rib fracture, weakness, GERD, anxiety with depression. She presents to the emergency department after being found slumped over the wheel of her car at [employer] [place]. She reports that this happened because she just fell asleep because she was tired because of not getting enough sleep. However, she has been falling more frequently recently, and has been to the emergency department yesterday where she was found to have therefore broken ribs and T3 c ompression fracture. She reports taking her medications as directed. She did have the COVID-19 vaccine x1 Work-up in the emergency department included the following imaging: CT of head showed a right parietal scalp hematoma. CT cervical spine showed multilevel degenerative disc disease. CT scan of the chest/abdomen and pelvis showed anterior lateral left third rib fracture that was nondisplaced, and left 4 through 7 minimally displaced rib fractures. T3 compression deformity fracture. Laboratories included COVID-19 test being positive. Pulse ox was noted to be 94% on room air, and the patient denied being short of breath, but admittedly is not very physically active Principal Diagnosis covid encephalopathy possible osteoporosis with current pathological fracture, ribs and T3 vertebra afib Discharge Exam The patient appeared well nourished and normally developed. Vital signs as documented. Head exam is normocephalic atraumatic Neck is without JVD, thyromegaly, or carotid bruits. Lungs are clear to auscultation, no focal loss of breath sounds does have some reproducible chest wall pain Cardiac exam, Rhythm is regular.. No murmurs, rubs or gallops. Abdominal exam reveals normal bowel sounds, soft non tender, no masses Extremities are nonedematous and both pedal pulses are present Neurologic exam is alert and oriented,x3, forgetful at times no focal loss of strength or sensation thoracic fracture does cause some pain Skin is without bruises or rashes Psychologically is without concerns for anxiety or depression Discharge Data Allergies Allergy/AdvReac Type Severity Reaction Status Date / Time No Known Allergies Allergy Verified 03/29/21 16:55 Consultations 03/29/21 18:50 ED Decision to Admit Stat Ordered Studies 03/29/21 16:45 CT abd pelvis IV con only Stat CT cervical spine wo con Stat CT chest diagnostic w con Stat CT head/brain wo con Stat Hospital Course (1) Head injury: Right parietal scalp hematoma continues improving with local care (2) Fall: Status post fall of undetermined etiology, but patient reports was mechanical. Patient admits to falling frequently at home PT/OT supportive of inpatient rehab after discharge covid test + x 2, remains without symptoms consider out pt osteoporosis management (3) COVID-19 virus infection: Patient noted to be mildly hypoxic with pulse ox room air of 94%. Has not been hypoxic since Has had improvement of her cognition and mental status since admission Placed on Decadron 6 mgs no other pulmonary symptoms will stop at discharge resume home vitamins (4) Paroxysmal atrial fibrillation with RVR: Patient is in sinus rhythm on her intake monitor EKG. Atrial fibrillation is by history, although typically not on rate controlling medication her frequent falling makes concerns for starting anticoagulation in this patient Paroxysmal rapid rate could be associated with her falling episodes no significant tachy on monitor (5) Hypothyroidism: Continue levothyroxine 75 mcg daily (6) Anxiety: Continue gabapentin, lamotrigine and paroxetine (7) Rib fracture: Patient denies significant pains of rib fractures or T3 compression fracture area. Acetaminophen 650 mg p.o. every 6 hours as needed pain or fever Patient is not requiring much in the way of pain relief possible osteoporosis with current pathological fracture, ribs and T3 vertebra (8) Weakness: Consult PT/OT as noted, recommending inpatient rehab Total Time Total Time Spent Total Time Spent (In Minutes): It required greater than 30 minutes to prepare this patient for discharge Discharge Plan Discharge Items Patient Disposition: Transfer Long Term Fac Reason For Visit: FREQUENT FALLS, RIB/THORACIC VERT FX/COVID-19 Discharge Diagnosis: osteopototic rib fractures from fall, thoracic spine fracture from fall covd infection encephalopathy resolved weakness and deconditioning from covid Activity: Per Instructions section Activity Comment: per PT/OTevaluation Non-emergency contact: Primary Care Provider Call non-emergency contact if: you have any medication questions and your symptoms worsen Follow-up/Referrals: Connor Wood MD [Primary Care Provider] - 04/09/21 11:15 am Diet: Regular Addtl Attending Provider Instructions: Isolation COVID-19 Instructions The following information about Home Isolation is from the CDC Website: https://www.cdc.gov/coronavirus/2019-ncov/hcp/zlplertb-oasjswp-werqwj.html Stay home except to get medical care People who are mildly ill with COVID-19 are able to isolate at home during their illness. You should restrict activities outside yourplace of residence, except for getting medical care. Do not go to work, school, or public areas. Avoid using public transportation, ride-sharing, or taxis. Separate yourself from other people and animals as best you can People: As much as possible, you should stay in a specific room and away from other people in your home. Also, you should use a separate bathroom, if available. Animals: You should restrict contact with pets and other animals while you are sick with COVID-19, just like you would around other people. Although there have not been reports of pets or other animals becoming sick with COVID-19, it is still recommended that people sick with COVID-19 limit contact with animals until more information is known about the virus. When possible, have another member of your household care for your animals while you are sick. If you are sick with COVID-19, avoid contact with your pet, including petting, snuggling, being kissed or licked, and sharing food. If you must care for your pet or be around animals while you are sick, wash your hands before and after you interact with pets and wear a face mask. Call ahead before visiting your doctor If you have a medical appointment, call the healthcare provider and tell them that you have or may have COVID-19. This will help the healthcare providers office take steps to keep other people from getting infected or exposed. Wear a face mask You should wear a face mask when you are around other people (e.g., sharing a room or vehicle) or pets and before you enter a healthcare providers office. If you are not able to wear a face mask (for example, because it causes trouble breathing), then people who live with you should not stay in the same room with you, or they should wear a face mask if they enter your room. Cover your coughs and sneezes Cover your mouth and nose with a tissue when you cough or sneeze. Throw used tissues in a lined trash can. Immediately wash your hands with soap and water for at least 20 seconds or, if soap and water are not available, clean your hands with an alcohol-based hand province archivist that contains at least 60% alcohol. Clean your hands often Wash your hands often with soap and water for at least 20 seconds, especially after blowing your nose, coughing, or sneezing; going to the bathroom; and before eating or preparing food. If soap and water are not readily available, use an alcohol-based hand province archivist with at least 60% alcohol, covering all surfaces of your hands and rubbing them together until they feel dry. Soap and water are the best option if hands are visibly dirty. Avoid touching yo ur eyes, nose, and mouth with unwashed hands. Avoid sharing personal household items You should not share dishes, drinking glasses, cups, eating utensils, towels, or bedding with other people or pets in your home. After using these items, they should be washed thoroughly with soap and water. Clean all high-touch surfaces everyday High touch surfaces include counters, tabletops, doorknobs, bathroom fixtures, toilets, phones, keyboards, tablets, and bedside tables. Also, clean any surfaces that may have blood, stool, or body fluids on them. Use a household cleaning spray or wipe, according to the label instructions. Labels contain instructions for safe and effective use of the cleaning product including precautions you should take when applying the product, such as wearing gloves and making sure you have good ventilation during use of the product. Monitor your symptoms Seek prompt medical attention if your illness is worsening (e.g., difficulty breathing).Beforeseeking care, call your healthcare provider and tell them that you have, or are being evaluated for, COVID-19. Put on a face mask before you enter the facility. These steps will help the healthcare providers office to keep other people in the office or waiting room from getting infected or exposed. Ask your healthcare provider to call the local or state health department. Persons who are placed under active monitoring or facilitated self- monitoring should follow instructions provided by their local health department or occupational health professionals, as appropriate. When working with your local health department check their available hours. If you have a medical emergency and need to call 911, notify the dispatch personnel that you have, or are being evaluated for COVID-19. If possible, put on a face mask before emergency medical services arrive. Discontinuing home isolation Patients with confirmed COVID-19 should remain under home isolation precautions until the risk of secondary transmission to others is thought to be low. The decision to discontinue home isolation precautions should be made on a [id number] basis, in consultation with healthcare providers and state and local health departments. Pending Studies at Discharge: No Stand-Alone Forms: My [facility] Skilled Items Patient informed of condition?: Yes DNR: No Discharge Level of Care: Skilled Communicable Disease: Yes Discharge Prognosis: Stable Lines: None Urinary Catheter: No Medications and DC Order Prescriptions: Continued Multivitamin 50 Plus Tablet 1 tab PO DAILY RF: 0 acetaminophen [Pain Reliever (acetaminophen)] 500 mg tablet 1,000 mg PO DIRECTED PRN (Reason: Pain) RF: 0 levothyroxine 75 mcg tablet 75 mcg PO QAM RF: 0 omeprazole 20 mg capsule,delayed release(DR/EC) 20 mg PO QAM RF: 0 vitamin B complex [B-Complex] Tablet 1 tab PO QAM RF: 0 cholecalciferol (vitamin D3) [Vitamin D3] 2,000 unit Tablet 0 unit PO QAM RF: 0 Caltrate 600 plus D 600 mg (1,500 mg)-800 unit Tablet,Chewable 1 tab PO QAM RF: 0 gabapentin 300 mg capsule 300 mg PO BID RF: 0 paroxetine HCl 20 mg tablet 20 mg PO HS RF: 0 omega 7-uyf-nqj-fish oil [Fish Oil] 1,200 (144-216) mg Capsule 1 cap PO DAILY RF: 0 lamotrigine 150 mg tablet 150 mg PO HS RF: 0 PreserVision AREDS-2 250-90-40-1 mg Capsule 1 tab PO AMHS RF: 0 Discharge Orders: Discharge Order (Routine); Ordered 04/02/21 Ordered By: Ever Hale Admission Data Admit Date/Time: 03/29/21 20:44 Attending Provider: Ever Hale Admit Provider: Ike Pérez Primary Care Provider: Connor Wood Other Providers: Ike Pérez ; [facility] ; [facility], ; [facility] Other Interventions: Discharge Summary Assessment (RN) Last Done: 04/02/21 12:19 Coding Level of Care Code D/C Day Management >30 mins Diagnoses Head injury S09.90XA Fall W19.XXXA COVID-19 virus infection U07.1 Paroxysmal atrial fibrillation with RVR I48.0 Hypothyroidism E03.9 Hypothyroidism type: acquired Anxiety F41.9 Rib fracture S22.49XD Encounter type: subsequent encounter Rib fracture type: multiple ribs Fracture type: closed Laterality: unspecified laterality Fracture healing: with routine healing Weakness R53.1
== END 2021-04-02 13:05 | DRG 604 ==
LOC: ED 15:43 → 2S 20:44 → SUATTDRO 20:44 → 2S 21:31
DX: M80.0AXA Age-related osteoporosis with current pathological fracture, other site, initial encounter for fracture; I48.0 Paroxysmal atrial fibrillation; U07.1 COVID-19; M80.0AXD Age-related osteoporosis with current pathological fracture, other site, subsequent encounter for fracture with routine healing; S00.03XA Contusion of scalp, initial encounter; E03.9 Hypothyroidism, unspecified; F41.9 Anxiety disorder, unspecified; W19.XXXA Unspecified fall, initial encounter; S22.42XA Multiple fractures of ribs, left side, initial encounter for closed fracture

== ENCOUNTER 2023-03-28 19:06 | Inpatient (IN) ==
--- NOTE | 2023-03-28 19:23 | Emergency Department Note ---
Impression & Plan Cellulitis ADMIT ED Provider Note HPI: The patient is an 82-year-old female who presents the emergency department with a chief complaint of chills and bilateral lower extremity cellulitis. Patient was seen here in the ED earlier today after a fall, following CT imaging that was negative she was discharged home and placed on Keflex for the finding of cellulitis to the bilateral lower extremities. Patient states she has had some discomfort in her legs, states that it felt like a "burning". Patient states that the nurse from the [facility] felt that she needed to be evaluated at the ED, patient states she did not want to come. On arrival here to the ED the patient is mildly hypertensive but otherwise hemodynamically stable, she is in no acute distress on my initial assessment, she is afebrile. Denies any chest pain or shortness of breath. She states she does have some discomfort in her left upper back area that is positional in nature. ROS: - Per HPI *Outpatient medications and allergy history reviewed. *Pertinent external medical records reviewed. PE: General: Alert, no acute distres HEENT: Normocephalic, trachea midline, forehead abrasion noted without active bleeding Eyes: Extraocular eye movement is intact, no scleral erythema Pulmonary: Clear to auscultation bilaterally, no wheezing Cardio: Regular rate and rhythm GI: Abdomen is soft to palpation : No suprapubic tenderness MSK: No evidence of trauma or malformation of the extremities, no edema Skin: Erythema to the bilateral lower extremities that appear circumferential in nature, there is some serosanguineous weeping of fluid to the anterior portion of the left lower extremity with superficial skin peeling, there is no crepitus to palpation of either lower extremity, no pain out of proportion to exam Neuro: Alert, no focal deficits Psychiatric: Cooperative conveyor monitor: (As interpreted by myself): - An order was placed for continuous cardiac monitoring - Patient was noted to be in sinus rhythm with a rate of 97 EKG: (As interpreted by myself): Rate: 102 Rhythm: Sinus tachycardia Intervals: Within normal limits ST changes: No ST elevation Time: 1914 Interventions provided in ED: -IV vancomycin, IV cefepime Differential Diagnosis: Bilateral lower extremity cellulitis, DVT, necrotizing soft tissue infection, CHF,, amongst other potential pathologies. Medical Decision Making: The patient presented to the emergency department for evaluation of bilateral lower extremity cellulitis, this was noted earlier today when she was here for a separate issue and the patient was initiated on Keflex. Patient tells me that nursing staff at her facility at the [facility] had concerned about the appearance and patient was complaining of some burning type pain in the bilateral lower extremities and therefore she was sent to the ED to be reassessed. Patient is in stable condition on arrival, she is afebrile, does not appear septic on my exam. Lab work was obtained that shows no leukocytosis, there is a neutrophilic predominance. There is a mild transaminitis, patient does not have any abdominal tenderness on my exam. Troponin is slightly elevated at 19.7, patient denies any chest pain. EKG shows sinus rhythm without any acute ischemic changes. Ultrasound imaging of the bilateral lower extremities was obtained that shows no evidence of DVT. On my reassessment patient is shaking somewhat, states that she feels chills. I suspect these of the symptoms that led to her presentation and concerns for nursing staff at the [facility]. Her cellulitis is impressive on exam despite lack of fever or leukocytosis, she does have neutrophilic predominance on her labs. I feel she may benefit from IV antibiotics and observation admission to determine whether or not the cellulitis will acutely worsen or improve with IV antibiotics. She does not have any crepitus or pain out of proportion to exam, she currently does not have any evidence on my exam of a necrotizing soft tissue infection. Given the above, [facility] hospitalist service will be consulted for admission. Patient is in agreement to this plan and she was placed for admission in stable condition Consultants: Hospitalist service, Dr. Mendoza Disposition discussion held by myself with: Patient Diagnosis: 1. Bilateral lower extremity cellulitis, circumferential 2. Neutrophilic predominance on CBC 3. Transaminitis, mild, nonspecific 4. Elevated high-sensitivity troponin level Disposition: Admission Miguel Angel Woo DO Emergency Medicine Past Med/Surg History Medical History Anxiety Cellulitis Cellulitis Heart murmur Patient will be scheduled for an echocardiogram she is no recollection of being told that she had a heart murmur Hypothyroidism Paroxysmal atrial fibrillation with RVR Postherpetic neuralgia Rib fracture Weakness Surgical History S/P cataract surgery Family History Father , age 76 of metastatic prostate cancer Cancer Prostate cancer Heart disease Mother , age 93 Rheumatoid arthritis Social History Smoking Status: Never smoker Second Hand Exposure: No; Do You Dip or Chew Tobacco: No; Hx Alcohol Use: No Hx Substance Use: No Preferred Language: Romansh Communication Ability: Effective Information Clerk Required: No Beliefs That Will Affect Care: None marital status: Single Current Living Situation: [facility] Current Living Situation Comment: lives at [facility] in [place] current occupational status: retired 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57 How many Children do You have: 0 Feels Safe at Home: Yes Assistive Devices: Walker Allergies Allergies Allergy/AdvReac Type Severity Reaction Status Date / Time No Known Allergies Allergy Verified 03/28/23 21:01 Home Meds Home Medications Medication Instructions Recorded Confirmed calcium carbonate 600 mg-vitamin 1 tab PO QAM 08/16/18 03/28/23 D3 20 mcg (800 unit) chewable tablet (Caltrate 600 plus D) levothyroxine 75 mcg tablet 75 mcg PO QAM 08/16/18 03/28/23 omeprazole 20 mg capsule,delayed 20 mg PO QAM 08/16/18 03/28/23 release fixyxuqrweac-tfyjdwoj-zwrzls 1 tab PO DAILY 09/06/18 03/28/23 tablet (Multivitamin 50 Plus tablet) omega 4-tdg-mpd-fish oil 1,200 mg 1 cap PO DAILY 03/28/21 03/28/23 (144 mg-216 mg) capsule (Fish Oil) paroxetine HCl 20 mg tablet 20 mg PO HS 03/28/21 03/28/23 vit C 250 mg-vit E 90 mg-zinc 40 1 tab PO AMHS 03/28/21 03/28/23 mg-copper 1 wt-sejidg-tcxozo capsule (PreserVision AREDS-2) hydroxyzine HCl 10 mg tablet 10 mg PO BID 01/08/22 03/28/23 lamotrigine 200 mg tablet 200 mg PO HS 01/08/22 03/28/23 acetaminophen 650 mg 650 mg PO Q12H PRN Pain 01/06/23 03/28/23 tablet,extended release (Tylenol 8 Hour) oxybutynin chloride 5 mg tablet 2.5 mg PO BID 01/06/23 03/28/23 calcium carbonate 400 mg calcium 400 mg PO QID PRN Indigestion 03/28/23 03/28/23 (1,000 mg) chewable tablet (Tums Ultra) hydroxyzine HCl 10 mg tablet 10 - 20 mg PO DIRECTED PRN 03/28/23 03/28/23 Anxiety hydroxyzine HCl 10 mg tablet 20 mg PO HS 03/28/23 03/28/23 melatonin 10 mg tablet 10 mg PO HS PRN Sleep 03/28/23 03/28/23 nystatin 100,000 unit/gram topical 1 applic topical BID PRN SKIN 03/28/23 03/28/23 powder REDNESS peg 400-propylene glycol 0.4 %-0.3 1 drp ophthalmic (eye) QID PRN Dry 03/28/23 03/28/23 % eye gel drops (Systane Gel) Eyes simethicone 125 mg chewable tablet 125 mg PO QID PRN GAS DISCOMFORT 03/28/23 0 03/28/23 triamcinolone acetonide 0.1 % 1 applic topical BID PRN SKIN 03/28/23 03/28/23 topical cream IRRITATION ON SHINS Results & Data (ED) Vital Signs Vital Signs - 24 hr 03/28/23 19:13 03/28/23 19:13 03/28/23 19:30 Temperature 37.2 C Temperature Source Oral Pulse Rate 102 H 102 H 97 H Pulse Rate from SpO2 Sensor 97 H Respiratory Rate 20 17 Respiratory Effort / Characteristics Non-Labored Respiratory Depth Normal Blood Pressure 168/72 H Blood Pressure Mean 104 Pulse Oximetry 98 97 Oxygen Delivery Method Room Air Sepsis Recent Fever Within 48 Hours Yes Sepsis New/Unexplained Change in Mental Status N/A Sepsis Action Taken by Nursing No Action Required 03/28/23 20:30 03/28/23 21:20 03/28/23 23:14 Temperature Temperature Source Pulse Rate 103 H 103 H 102 H Pulse Rate from SpO2 Sensor 104 H 102 H Respiratory Rate 28 H 27 H 14 Respiratory Effort / Characteristics Respiratory Depth Blood Pressure 126/66 167/82 H Blood Pressure Mean 86 110 Pulse Oximetry 95 87 L 97 Oxygen Delivery Method Sepsis Recent Fever Within 48 Hours Sepsis New/Unexplained Change in Mental Status Sepsis Action Taken by Nursing 03/28/23 23:15 03/28/23 23:15 03/28/23 23:30 Temperature Temperature Source Pulse Rate 101 H Pulse Rate from SpO2 Sensor 100 H Respiratory Rate 19 Respiratory Effort / Characteristics Respiratory Depth Blood Pressure 167/82 H 153/67 H Blood Pressure Mean 110 95 Pulse Oximetry 95 Oxygen Delivery Method Sepsis Recent Fever Within 48 Hours Sepsis New/Unexplained Change in Mental Status Sepsis Action Taken by Nursing 03/28/23 23:30 03/29/23 00:00 03/29/23 00:00 Temperature Temperature Source Pulse Rate 100 H 106 H Pulse Rate from SpO2 Sensor 103 H 106 H Respiratory Rate 20 20 Respiratory Effort / Characteristics Respiratory Depth Blood Pressure 121/84 Blood Pressure Mean 96 Pulse Oximetry 96 96 Oxygen Delivery Method Sepsis Recent Fever Within 48 Hours Sepsis New/Unexplained Change in Mental Status Sepsis Action Taken by Nursing Laboratory Data 03/28/23 19:30 03/28/23 19:30 Lab Results 03/28/23 03/28/23 03/28/23 Range/Units 19:30 19:30 19:30 WBC 10.32 (4.8-10.8) K/ul RBC 4.11 L (4.20-5.40) M/uL Hgb 11.9 L (12.0-16.0) g/dl Hct 36.2 L (37.0-47.0) % MCV 88.1 (80.0-100.0) fL MCH 29.0 (25.0-34.0) pg MCHC 32.9 (32.0-36.0) g/dL RDW Std Deviation 43.9 (36.4-46.3) fL RDW Coeff of Benita 13.7 (11.5-14.5) % Plt Count 276 (130-400) K/uL MPV 9.0 L (9.4-12.4) fL Immature Gran % (Auto) 0.3 % Neut % (Auto) 89.3 % Lymph % (Auto) 4.9 % Trego % (Auto) 4.5 % Eos % (Auto) 0.8 % Baso % (Auto) 0.2 % Neut # (Auto) 9.22 H (1.40-6.50) K/uL Lymph # (Auto) 0.51 L (1.2-3.4) K/uL Trego # (Auto) 0.46 (0.11-0.59) K/uL Eos # (Auto) 0.08 (0-0.50) K/uL Baso # (Auto) 0.02 (0-0.2) K/uL Immature Gran # (Auto) 0.03 (0.01-0.20) K/uL PT 10.3 (9.0-12.0) Seconds INR 0.9 (0.9-1.1) VBG pH (7.36-7.41) VBG pCO2 (38-50) mmHg VBG pO2 mmHg VBG HCO3 mmol/L VBG O2 Saturation % VBG Base Excess mEq/L Sodium 139 (136-145) mmol/L Potassium 3.9 (3.5-5.1) mmol/L Chloride 103 (98-107) mmol/L Carbon Dioxide 28 (21-32) mmol/L Anion Gap 8 (3-11) BUN 22 (6-23) mg/dl Creatinine 0.95 (0.6-1.2) mg/dl Est Cr Clr Drug Dosing 43.6 ml/min Est GFR ( Amer) 65.1 ml/min Est GFR (Non-Af Amer) 56.2 ml/min BUN/Creatinine Ratio 23.2 H (10-20) Glucose 144 H (70-99(Fasting)) mg/dl Lactate (0.4-2.0) mmol/L Calcium 8.8 (8.6-10.3) mg/dl Magnesium 1.7 (1.7-2.4) mg/dl Total Bilirubin 1.0 (0.2-1.0) mg/dl Direct Bilirubin 0.1 (0-0.2) mg/dl AST 92 H (13-39) U/L ALT 111 H (7-52) U/L Alkaline Phosphatase 215 H (34-104) U/L Troponin I High Sens 19.7 H (0-14) pg/ml Total Protein 7.1 (6.0-8.3) gm/dl Albumin 3.8 (3.4-5.0) gm/dl Procalcitonin (0-0.5) ng/ml 03/28/23 03/28/23 03/28/23 Range/Units 19:30 20:06 20:06 WBC (4.8-10.8) K/ul RBC (4.20-5.40) M/uL Hgb (12.0-16.0) g/dl Hct (37.0-47.0) % MCV (80.0-100.0) fL MCH (25.0-34.0) pg MCHC (32.0-36.0) g/dL RDW Std Deviation (36.4-46.3) fL RDW Coeff of Benita (11.5-14.5) % Plt Count (130-400) K/uL MPV (9.4-12.4) fL Immature Gran % (Auto) % Neut % (Auto) % Lymph % (Auto) % Trego % (Auto) % Eos % (Auto) % Baso % (Auto) % Neut # (Auto) (1.40-6.50) K/uL Lymph # (Auto) (1.2-3.4) K/uL Trego # (Auto) (0.11-0.59) K/uL Eos # (Auto) (0-0.50) K/uL Baso # (Auto) (0-0.2) K/uL Immature Gran # (Auto) (0.01-0.20) K/uL PT (9.0-12.0) Seconds INR (0.9-1.1) VBG pH 7.44 H (7.36-7.41) VBG pCO2 42 (38-50) mmHg VBG pO2 42 mmHg VBG HCO3 29 mmol/L VBG O2 Saturation 79.9 % VBG Base Excess 3.9 mEq/L Sodium (136-145) mmol/L Potassium (3.5-5.1) mmol/L Chloride (98-107) mmol/L Carbon Dioxide (21-32) mmol/L Anion Gap (3-11) BUN (6-23) mg/dl Creatinine (0.6-1.2) mg/dl Est Cr Clr Drug Dosing ml/min Est GFR ( Amer) ml/min Est GFR (Non-Af Amer) ml/min BUN/Creatinine Ratio (10-20) Glucose (70-99(Fasting)) mg/dl Lactate 1.9 (0.4-2.0) mmol/L Calcium (8.6-10.3) mg/dl Magnesium (1.7-2.4) mg/dl Total Bilirubin (0.2-1.0) mg/dl Direct Bilirubin (0-0.2) mg/dl AST (13-39) U/L ALT (7-52) U/L Alkaline Phosphatase (34-104) U/L Troponin I High Sens (0-14) pg/ml Total Protein (6.0-8.3) gm/dl Albumin (3.4-5.0) gm/dl Procalcitonin 0.12 (0-0.5) ng/ml Imaging Data Radiologist's Impression: Venous Doppler Study 03/28/23 20:26 Exam(s): US VENOUS BILATERAL LOWER EXTREMITIES EXAM: US Duplex Bilateral Lower Extremities Veins CLINICAL HISTORY: Reason for exam: pain/erythema eval for dvt. TECHNIQUE: Real-time duplex ultrasound scan of the bilateral lower extremity veins integrating B-mode two-dimensional vascular structure, Doppler spectral analysis, color flow Doppler imaging and compression. COMPARISON: No relevant prior studies available. FINDINGS: Right deep veins: Unremarkable. No DVT in the right common femoral, femoral, proximal deep femoral or popliteal veins. The veins demonstrate normal color flow, are normally compressible, with normal phasic flow and/or augmentation response. Right superficial veins: Unremarkable. No thrombus in the visualized right great saphenous vein. Left deep veins: Unremarkable. No DVT in the left common femoral, femoral, proximal deep femoral or popliteal veins. The veins demonstrate normal color flow, are normally compressible, with normal phasic flow and/or augmentation response. Left superficial veins: Unremarkable. No thrombus in the visualized left great saphenous vein. Soft tissues: No acute findings. No popliteal cyst. IMPRESSION: Normal bilateral lower extremity duplex venous ultrasound. Electronically signed by: Kendrick Mendoza MD 03/28/23 23:54 PM Discharge Plan Visit Data Chief Complaint: Illness Stated Complaint: CELLULITIS ED Provider: Miguel Angel Woo Discharge Problem: Cellulitis Forms Stand Alone Forms: My [facility] [employer] Prescriptions Prescriptions: No Action oxybutynin chloride 5 mg tablet 2.5 mg PO BID acetaminophen [Tylenol 8 Hour] 650 mg tablet extended release 650 mg PO Q12H MDD 3 GRAMS APAP/24 HOURS PRN (Reason: Pain) Multivitamin 50 Plus Tablet 1 tab PO DAILY levothyroxine 75 mcg tablet 75 mcg PO QAM omeprazole 20 mg capsule,delayed release(DR/EC) 20 mg PO QAM Caltrate 600 plus D 600 mg (1,500 mg)-800 unit Tablet,Chewable 1 tab PO QAM lamotrigine 200 mg tablet 200 mg PO HS hydroxyzine HCl 10 mg tablet 10 mg PO BID Rx Instructions: TAKES AT 1100 & 1700 triamcinolone acetonide 0.1 % Cream 1 applic TOPICAL BID PRN (Reason: SKIN IRRITATION ON SHINS) calcium carbonate [Tums Ultra] 400 mg calcium (1,000 mg) Tablet,Chewable 400 mg PO QID PRN (Reason: Indigestion) simethicone 125 mg Tablet,Chewable 125 mg PO QID PRN (Reason: GAS DISCOMFORT) nystatin 100,000 unit/gram Powder 1 applic TOPICAL BID PRN (Reason: SKIN REDNESS) hydroxyzine HCl [Atarax] 10 mg Tablet 20 mg PO HS hydroxyzine HCl [Atarax] 10 mg Tablet 10 - 20 mg PO DIRECTED PRN (Reason: Anxiety) Systane Gel 0.4-0.3 % Drops,Gel 1 drp OPHTHALMIC (EYE) QID PRN (Reason: Dry Eyes) melatonin 10 mg Tablet 10 mg PO HS PRN (Reason: Sleep) paroxetine HCl 20 mg tablet 20 mg PO HS omega 3-jfi-aur-fish oil [Fish Oil] 1,200 (144-216) mg Capsule 1 cap PO DAILY PreserVision AREDS-2 250-90-40-1 mg Capsule 1 tab PO AMHS Referrals Referrals: [facility] [Primary Care Provider] - Cellulitis Qualifiers: Site of cellulitis: extremity Site of cellulitis of extremity: lower extremity Laterality: unspecified laterality Qualified Code(s): L03.119 - Cellulitis of unspecified part of limb
[2023-03-28 19:57] LABS: Basophils # (auto) 0.02 K/uL (0-0.2); Basophils % (auto) 0.2 %; Eosinophils # (auto) 0.08 K/uL (0-0.50); Eosinophils % (auto) 0.8 %; Hematocrit (blood only) 36.2 % (37.0-47.0); Hemoglobin 11.9 g/dl (12.0-16.0); Immature Granulocytes # (auto) 0.03 K/uL (0.01-0.20); Immature Granulocytes % (auto) 0.3 %; Lymphocytes # (auto) 0.51 K/uL (1.2-3.4); Lymphocytes % (auto) 4.9 %; Mean Corpuscular Hgb Conc 32.9 g/dL (32.0-36.0); Mean Corpuscular Volume 88.1 fL (80.0-100.0); Monocytes # (auto) 0.46 K/uL (0.11-0.59); Monocytes % (auto) 4.5 %; Neutrophils # (auto) 9.22 K/uL (1.40-6.50); Neutrophils % (auto) 89.3 %; Platelet Count 276 K/uL (130-400); RDW Coefficient of Variation 13.7 % (11.5-14.5); RDW Standard Deviation 43.9 fL (36.4-46.3); Red Blood Count 4.11 M/uL (4.20-5.40); White Blood Count 10.32 K/ul (4.8-10.8)
[2023-03-28 20:16] LABS: Albumin Level 3.8 gm/dl (3.4-5.0); BUN Creatinine Ratio 23.2 (10-20); Bilirubin Direct 0.1 mg/dl (0-0.2); Calcium 8.8 mg/dl (8.6-10.3); Creatinine Clr Calc Pharmacy 43.6 ml/min; Est GFR (African American) 65.1 ml/min; Est GFR (Non-African American) 56.2 ml/min; Magnesium 1.7 mg/dl (1.7-2.4); Potassium 3.9 mmol/L (3.5-5.1); Total Protein 7.1 gm/dl (6.0-8.3)
[2023-03-28 20:19] LABS: Base Excess VBG 3.9 mEq/L; HCO3 VBG 29 mmol/L; Oxygen Saturation VBG 79.9 %; PCO2 VBG 42 mmHg (38-50); PO2 VBG 42 mmHg; pH VBG 7.44 (7.36-7.41)
[2023-03-28 20:23] LABS: INR 0.9 (0.9-1.1); Prothrombin Time 10.3 Seconds (9.0-12.0); Troponin I High Sensitivity 19.7 pg/ml (0-14)
--- NOTE | 2023-03-28 23:55 | Ultrasound Report ---
Exam(s): US VENOUS BILATERAL LOWER EXTREMITIES EXAM: US Duplex Bilateral Lower Extremities Veins CLINICAL HISTORY: Reason for exam: pain/erythema eval for dvt. TECHNIQUE: Real-time duplex ultrasound scan of the bilateral lower extremity veins integrating B-mode two-dimensional vascular structure, Doppler spectral analysis, color flow Doppler imaging and compression. COMPARISON: No relevant prior studies available. FINDINGS: Right deep veins: Unremarkable. No DVT in the right common femoral, femoral, proximal deep femoral or popliteal veins. The veins demonstrate normal color flow, are normally compressible, with normal phasic flow and/or augmentation response. Right superficial veins: Unremarkable. No thrombus in the visualized right great saphenous vein. Left deep veins: Unremarkable. No DVT in the left common femoral, femoral, proximal deep femoral or popliteal veins. The veins demonstrate normal color flow, are normally compressible, with normal phasic flow and/or augmentation response. Left superficial veins: Unremarkable. No thrombus in the visualized left great saphenous vein. Soft tissues: No acute findings. No popliteal cyst. IMPRESSION: Normal bilateral lower extremity duplex venous ultrasound. Electronically signed by: Kendrcik Mendoza MD 03/28/23 23:54 PM
[2023-03-29] MEDS ORDERED: VANCOMYCIN HCL 1,500 MG in SODIUM CHLORIDE 0.9% 500 ML IV ONE (00:21)
[2023-03-29] MEDS ORDERED: VANCOMYCIN CONSULT ACTIVE PRN ×2 (00:21→02:30)
[2023-03-29] MEDS ORDERED: CEFEPIME 2,000 MG/20 ML VIAL IV STA (00:21)
--- NOTE | 2023-03-29 01:01 | History & Physical Report ---
Date of Service March 29, 2023 Assessment & Plan (1) Cellulitis: Plan: 82-year-old female presenting with warmth, redness and tenderness of bilateral lower extremities with associated subjective fever and shaking chills prior to arrival. In the ER she is afebrile, mildly tachycardic with heart rate = 106, blood pressure stable. Legs are warm, red and tender bilaterally. No leukocytosis. Normal procalcitonin. Observation to medical Monitor bilateral lower extremity redness for progression Continue vancomycin and ceftriaxone for broad-spectrum empiric coverage Repeat chemistry and CBC in the morning (2) CHI (closed head injury): Plan: Patient with a fall earlier in the day resulting in frontal head trauma. CT of the head and cervical spine unremarkable. Neurochecks every 4 hours - heat and Bengay to posterior neck for pain Tylenol as needed (3) Depression with anxiety: Plan: Chronic. Patient appears mildly anxious in the room at present. Continue paroxetine 20 mg p.o. nightly Continue hydroxyzine 10 mg twice daily with 20 mg nightly (4) Hypothyroidism: Plan: Chronic. Stable. TSH = 1.9 on 01/27/2023 Continue Synthroid (5) Abnormal laboratory test result: Plan: patient with mild elevation of AST = 92, ALT = 111, alk phos = 215. She has no abdominal pain or nausea Repeat LFTs in the morning Patient with mild elevation of troponin = 19.7. No chest pain, shortness of breath or palpitations. No acute EKG changes Telemetry monitoring Repeat troponin in the morning F/[id number]-Lock. Electrolytes within normal limits. Regular diet as tolerated Prophylaxis Lovenox Code - Full per discussion with patient Dispo - Observation to medical with telemetry History of Present Illness Chief Complaint: Bilateral lower extremity pain and redness Primary Care Provider: CLAYTON Howard is an 82-year-old female with history of anxiety, hypothyroidism, paroxysmal atrial fibrillation presenting with worsening pain and redness of her bilateral lower extremities. Patient was seen in the ER 03/28/2023 morning [facility] She reports she slid off the bed and struck her head on the carpeted floor. No loss of consciousness. ER work-up largely unremarkable including normal CT head and cervical spine. Patient noted to have bilateral lower extremity redness and was subsequently discharged on Keflex. Patient returns this evening with complaint of chills, shakes and worsening redness and pain in her bilateral lower extremities. she denies chest pain, cough, shortness of breath. Denies abdominal pain, nausea, vomiting, diarrhea, constipation. She has intermittent dysuria but nothing presently. She is complaining of some muscle pain and tension in her left neck and upper back. No additional complaints at this time In the ER she is afebrile, tachycardic with heart rate of 106, blood pressure stable. No respiratory distress. Adequate oxygenation on room air ER course: Cefepime Vancomycin Allergies Allergy/AdvReac Type Severity Reaction Status Date / Time No Known Allergies Allergy Verified 03/28/23 21:01 Home Medications Medication Instructions Recorded Confirmed Type calcium carbonate 600 mg-vitamin 1 tab PO QAM 08/16/18 03/28/23 History D3 20 mcg (800 unit) chewable tablet (Caltrate 600 plus D) levothyroxine 75 mcg tablet 75 mcg PO QAM 08/16/18 03/28/23 History omeprazole 20 mg capsule,delayed 20 mg PO QAM 08/16/18 03/28/23 History release fmdbjnkxfnmq-ugrsyegz-imsjiy 1 tab PO DAILY 09/06/18 03/28/23 History tablet (Multivitamin 50 Plus tablet) omega 0-lfv-rgd-fish oil 1,200 mg 1 cap PO DAILY 03/28/21 03/28/23 History (144 mg-216 mg) capsule (Fish Oil) paroxetine HCl 20 mg tablet 20 mg PO HS 03/28/21 03/28/23 History vit C 250 mg-vit E 90 mg-zinc 40 1 tab PO AMHS 03/28/21 03/28/23 History mg-copper 1 op-pwvddz-rrmtye capsule (PreserVision AREDS-2) hydroxyzine HCl 10 mg tablet 10 mg PO BID 01/08/22 03/28/23 History lamotrigine 200 mg tablet 200 mg PO HS 01/08/22 03/28/23 History acetaminophen 650 mg 650 mg PO Q12H PRN Pain 01/06/23 03/28/23 History tablet,extended release (Tylenol 8 Hour) oxybutynin chloride 5 mg tablet 2.5 mg PO BID 01/06/23 03/28/23 History calcium carbonate 400 mg calcium 400 mg PO QID PRN Indigestion 03/28/23 03/28/23 History (1,000 mg) chewable tablet (Tums Ultra) hydroxyzine HCl 10 mg tablet 10 - 20 mg PO DIRECTED PRN 03/28/23 03/28/23 History Anxiety hydroxyzine HCl 10 mg tablet 20 mg PO HS 03/28/23 03/28/23 History melatonin 10 mg tablet 10 mg PO HS PRN Sleep 03/28/23 03/28/23 History nystatin 100,000 unit/gram topical 1 applic topical BID PRN SKIN 03/28/23 03/28/23 History powder REDNESS peg 400-propylene glycol 0.4 %-0.3 1 drp ophthalmic (eye) QID PRN Dry 03/28/23 03/28/23 History % eye gel drops (Systane Gel) Eyes simethicone 125 mg chewable tablet 125 mg PO QID PRN GAS DISCOMFORT 03/28/23 03/28/23 History triamcinolone acetonide 0.1 % 1 applic topical BID PRN SKIN 03/28/23 03/28/23 History topical cream IRRITATION ON SHINS Past Med/Surg History Medical History Anxiety Cellulitis Cellulitis Heart murmur Patient will be scheduled for an echocardiogram she is no recollection of being told that she had a heart murmur Hypothyroidism Paroxysmal atrial fibrillation with RVR Postherpetic neuralgia Rib fracture Weakness Surgical History S/P cataract surgery Family History Father , age 76 of metastatic prostate cancer Cancer Prostate cancer Heart disease Mother , age 93 Rheumatoid arthritis Social History Smoking Status: Never smoker Second Hand Exposure: No; Do You Dip or Chew Tobacco: No; Hx Alcohol Use: No Hx Substance Use: No Preferred Language: Albanian Communication Ability: Effective Leadite Heater Required: No Beliefs That Will Affect Care: None marital status: Single Current Living Situation: Assisted Current Living Situation Comment: lives at [facility] in [place] current occupational status: retired 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 age 57 How many Children do You have: 0 Feels Safe at Home: Yes Assistive Devices: Walker Review of Systems Review of Systems: All systems reviewed & are unremarkable except as noted in HPI & below Physical Exam Physical Exam: General: patient resting comfortably, NAD, non-toxic in appearance, AA&O x 4 Skin: warm, dry, intact HEENT: Bruise present on forehead,PERRL, EOMI, anicteric sclera, conjunctiva without injection, external ear normal to inspection and nontender, nares patent, moist mucus membranes, dentition intact, no oropharyngeal lesions, neck supple, trachea midline, no LAD, no thyromegaly, no JVD Heart: +S1/S2, regular, 3/6 systolic ejection murmur across precordium, no rubs/gallops Lungs: equal air entry bilaterally, no rales/rhonchi/wheezes Abd: +BS, soft, NT/ND, no masses/organomegaly/ascites Ext: warm, 2+ pulses in UE/LE bilaterally, no clubbing/cyanosis, deep rubor of bilateral lower extremities, warm and tender to touch, skin abrasion present on left guerrero, no crepitus/bullae/lymphangitic streaking, no pain with palpation above the knee or in the thigh/groin. Neuro: nonfocal, patient AA&O x 4, speech intact, no facial droop, moving all extremities on command with equal strength 5/5 Results & Data Results & Data Vital Signs (Past 12 Hours) Vital Signs Temp Pulse Resp BP Pulse Ox O2 Del Method 03/29/23 00:30 107 H 18 96 03/29/23 00:30 149/71 H 03/28/23 23:22 97 H 03/29/23 00:00 106 H 20 96 03/29/23 00:00 121/84 03/28/23 23:30 100 H 20 96 03/28/23 23:30 153/67 H 03/28/23 23:15 167/82 H 03/28/23 23:15 101 H 19 95 03/28/23 23:14 102 H 14 167/82 H 97 03/28/23 21:20 103 H 27 H 126/66 87 L 03/28/23 20:30 103 H 28 H 95 03/28/23 19:30 97 H 17 97 03/28/23 19:13 102 H 03/28/23 19:13 37.2 C 102 H 20 168/72 H 98 Room Air Laboratory Results Laboratory Results WBC 10.32 K/ul (4.8-10.8) 03/28/23 19: RBC 4.11 M/uL (4.20-5.40) L 03/28/23 19:30 Hgb 11.9 g/dl (12.0-16.0) L 03/28/23 19: Hct 36.2 % (37.0-47.0) L 03/28/23 19: MCV 88.1 fL (80.0-100.0) 03/28/23 19: MCH 29.0 pg (25.0-34.0) 03/28/23: MCHC 32.9 g/dL (32.0-36.0) 03/28/23: RDW Std Deviation 43.9 fL (36.4-46.3) 03/28/23: RDW Coeff of Benita 13.7 % (11.5-14.5) 03/28/23: Plt Count 276 K/uL (130-400) 03/28/23 19: MPV 9.0 fL (9.4-12.4) L 03/28/23 19: Immature Gran % (Auto) 0.3 % 03/28/23 19: Neut % (Auto) 89.3 % 03/28/23 19:30 Lymph % (Auto) 4.9 % 03/28/23 19:30 Greenlee % (Auto) 4.5 % 03/28/23 19: Eos % (Auto) 0.8 % 03/28/23 19:30 Baso % (Auto) 0.2 % 03/28/23 19:30 Neut # (Auto) 9.22 K/uL (1.40-6.50) H 03/28/23 19: Lymph # (Auto) 0.51 K/uL (1.2-3.4) L 03/28/23 19:30 Greenlee # (Auto) 0.46 K/uL (0.11-0.59) 03/28/23 19: Eos # (Auto) 0.08 K/uL (0-0.50) 03/28/23 19:30 Baso # (Auto) 0.02 K/uL (0-0.2) 03/28/23 19:30 Immature Gran # (Auto) 0.03 K/uL (0.01-0.20) 03/28/23 19:30 PT 10.3 Seconds (9.0-12.0) 03/28/23 19:30 INR 0.9 (0.9-1.1) 03/28/23 19:30 VBG pH 7.44 (7.36-7.41) H 03/28/23 20:06 VBG pCO2 42 mmHg (38-50) 03/28/23 20:06 VBG pO2 42 mmHg 03/28/23 20:06 VBG HCO3 29 mmol/L 03/28/23 20:06 VBG O2 Saturation 79.9 % 03/28/23 20:06 VBG Base Excess 3.9 mEq/L 03/28/23 20:06 Sodium 139 mmol/L (136-145) 03/28/23 19:30 Potassium 3.9 mmol/L (3.5-5.1) 03/28/23 19:30 Chloride 103 mmol/L (98-107) 03/28/23 19:30 Carbon Dioxide 28 mmol/L (21-32) 03/28/23 19:30 Anion Gap 8 (3-11) 03/28/23 19:30 BUN 22 mg/dl (6-23) 03/28/23 19:30 Creatinine 0.95 mg/dl (0.6-1.2) 03/28/23 19:30 Est Cr Clr Drug Dosing 43.6 ml/min 03/28/23 19:30 Est GFR ( Amer) 65.1 ml/min 03/28/23 19:30 Est GFR (Non-Af Amer) 56.2 ml/min 03/28/23 19:30 BUN/Creatinine Ratio 23.2 (10-20) H 03/28/23 19:30 Glucose 144 mg/dl (70-99(Fasting)) H 03/28/23 19:30 Lactate 1.9 mmol/L (0.4-2.0) 03/28/23 20:06 Calcium 8.8 mg/dl (8.6-10.3) 03/28/23 19:30 Magnesium 1.7 mg/dl (1.7-2.4) 03/28/23 19:30 Total Bilirubin 1.0 mg/dl (0.2-1.0) 03/28/23 19:30 Direct Bilirubin 0.1 mg/dl (0-0.2) 03/28/23 19:30 AST 92 U/L (13-39) H 03/28/23 19:30 ALT 111 U/L (7-52) H 03/28/23 19:30 Alkaline Phosphatase 215 U/L (34-104) H 03/28/23 19:30 Troponin I High Sens 19.7 pg/ml (0-14) H 03/28/23 19:30 Total Protein 7.1 gm/dl (6.0-8.3) 03/28/23 19:30 Albumin 3.8 gm/dl (3.4-5.0) 03/28/23 19:30 Procalcitonin 0.12 ng/ml (0-0.5) 03/28/23 19:30 SARS-CoV-2, RNA, NAAT NEGATIVE (NEGATIVE) 03/29/23 Unknown Impressions Venous Doppler Study 03/28/23 20:26 Exam(s): US VENOUS BILATERAL LOWER EXTREMITIES EXAM: US Duplex Bilateral Lower Extremities Veins CLINICAL HISTORY: Reason for exam: pain/erythema eval for dvt. TECHNIQUE: Real-time duplex ultrasound scan of the bilateral lower extremity veins integrating B-mode two-dimensional vascular structure, Doppler spectral analysis, color flow Doppler imaging and compression. COMPARISON: No relevant prior studies available. FINDINGS: Right deep veins: Unremarkable. No DVT in the right common femoral, femoral, proximal deep femoral or popliteal veins. The veins demonstrate normal color flow, are normally compressible, with normal phasic flow and/or augmentation response. Right superficial veins: Unremarkable. No thrombus in the visualized right great saphenous vein. Left deep veins: Unremarkable. No DVT in the left common femoral, femoral, proximal deep femoral or popliteal veins. The veins demonstrate normal color flow, are normally compressible, with normal phasic flow and/or augmentation response. Left superficial veins: Unremarkable. No thrombus in the visualized left great saphenous vein. Soft tissues: No acute findings. No popliteal cyst. IMPRESSION: Normal bilateral lower extremity duplex venous ultrasound. Electronically signed by: Kendrick Mendoza MD 03/28/23 23:54 PM PG Care Time/CCT Total # of Minutes Spent Total Time Spent with Patient: Total time spent is greater than 50% in coordination of care (as documented) at patient's floor/unit and/or counseling patient: Coding Level of Care Code 15720 INT INP/OBS CARE 3/75MIN Diagnoses Cellulitis L03.115 Laterality: right Site of cellulitis: extremity Site of cellulitis of extremity: lower extremity CHI (closed head injury) S09.90XA Depression with anxiety F41.8 Hypothyroidism E03.9 Hypothyroidism type: acquired Abnormal laboratory test result R89.9 (1) Cellulitis Laterality: right Site of cellulitis: extremity Site of cellulitis of extremity: lower extremity Qualified Code(s): L03.115 - Cellulitis of right lower limb (4) Hypothyroidism Hypothyroidism type: acquired Qualified Code(s): E03.9 - Hypothyroidism, unspecified
[2023-03-29] MEDS ORDERED: TROLAMINE SALICYLATE 10% CRM 255 APPLN/85 GM TUBE EXT PRN (02:30)
[2023-03-29] MEDS ORDERED: DOCUSATE SODIUM 100 MG CAP PO PRN (02:30)
[2023-03-29] MEDS ORDERED: MELATONIN 3 MG TAB PO PRN (02:45)
[2023-03-29] MEDS: ACETAMINOPHEN 325 MG TAB PO PRN (03:00)
[2023-03-29] MEDS: cefTRIAXone SODIUM 1,000 MG in DEXTROSE 5% AD-VAN 50 ML IV SCH (05:32)
[2023-03-29] MEDS: LEVOTHYROXINE SODIUM 75 MCG TABLET PO SCH (05:32)
[2023-03-29 06:30] LABS: Appearance Urine Clear (Clear); Bilirubin Urine Negative (Negative); Blood Urine Negative (Negative); Color Urine Yellow; Glucose Urine UA Negative (Negative); Ketones Urine Negative (Negative); Leukocyte Esterase Urine Negative (Negative); Nitrite Urine Negative (Negative); Protein Urine Negative (Negative); Specific Gravity Urine 1.014 (1.000-1.030); Urobilinogen Urine Negative (Negative)
[2023-03-29 07:10] LABS: Creatinine Clr Calc Pharmacy 50.4 ml/min; Est GFR (African American) 80.1 ml/min; Est GFR (Non-African American) 69.1 ml/min
[2023-03-29 07:18] LABS: Troponin I High Sensitivity 22.5 pg/ml (0-14)
[2023-03-29] MEDS ORDERED: VANCOMYCIN HCL 1,000 MG in SODIUM CHLORIDE 0.9% 250 ML IV SCH (08:00)
[2023-03-29] MEDS: PANTOprazole 40 MG TAB PO SCH (08:03)
[2023-03-29] MEDS: oxyBUTYnin chloride 5 MG TAB PO SCH ×2 (08:03→21:18)
[2023-03-29] MEDS: ENOXAPARIN INJ 40 MG/0.4 ML SYR SQ SCH (08:04)
--- NOTE | 2023-03-29 08:04 | XRay Report ---
XR chest 1V portable HISTORY: Sepsis COMPARISON: Chest 09/06/2022. FINDINGS: Slightly rotated study. No pneumothorax. No pleural effusions. The cardiac silhouette remai ns enlarged. Mild interstitial thickening, unchanged. This is likely chronic. No new focal lung conso lidations to suggest a pneumonia. No evidence for pulmonary edema. Postoperative changes again noted within the proximal left humerus. Old, healed left-sided rib fractures. Small hiatus hernia. IMPRESSION: No significant change compared to the prior study. No acute process. ACT 112: Negative or not required by law. Electronically signed by: Santos Hairston M.D. 03/29/2023 7:10 AM
--- NOTE | 2023-03-29 09:27 | Pharmacy Report ---
Pharmacy PK ABX Note - Date of Service March 29, 2023 - Assessment and Plan Assessment 82 year old F receiving Vancomycin and Ceftriaxone for treatment of bilateral lower extremity cellulitis. * Day #1 of antimicrobial therapy. * PMHx significant for residing in a [place] [facility] [place] ([facility]). * HPI: Evaluated at [facility] ED on morning of 03/28/23 [place] a [place] [facility]. Noted to have b/l LE cellulitis and discharged on Keflex. Returned last evening reporting chills, shakes, worsening redness and pain in her b/l LE. * Labs/Vitals: Afebrile. Hemodynamically stable. No leukocytosis. SCr stable and at baseline. Lactate 1.9 and procalcitonin 0.12. * Micro: Blood cultures pending. MRSA nasal swab positive. Plan Vancomycin * Loading dose: 1500 mg IV x 1 * Maintenance dose: * Originally ordered 1000 mg IV every 24 hours. Predicted AUC/DANAE was on the lower end of normal at 412 mg/L.hr. * Therefore, decided to empirically increase regimen to 750 mg IV every 12 hours. Predicted AUC/DANAE of this regimen was 580 mg/L.hr. Does have an expected risk of nephrotoxicity near 17%. Will monitor I/Os and renal fxn closely. Expect patient to clear better than population kinetics predict. * Trough level ordered for: 03/31/23 Pharmacy will continue to follow and will adjust dose/frequency as necessary. Thank you. Pharmacy has transitioned to AUC monitoring for vancomycin. AUC/DANAE is the preferred PK/PD target and is associated with decreased risk of nephrotoxicity compared to traditional trough targets.
[2023-03-29] MEDS: hydrOXYzine HCl 10 MG TAB PO SCH ×3 (12:04→21:18)
[2023-03-29 13:49] LABS: Estimated Average Glucose 128 mg/dl; Hemoglobin A1C 6.1 % (4.5-5.6)
--- NOTE | 2023-03-29 16:01 | Hospitalist Progress Note ---
Date of Service March 29, 2023 Assessment & Plan (1) Cellulitis: Plan: Bilateral lower extremity cellulitis below the knees. She currently is on Rocephin and vancomycin. She has been admitted from observation status. (2) CHI (closed head injury): Plan: Patient with a fall earlier in the day resulting in frontal head trauma. CT of the head and cervical spine unremarkable. A small mid forehead hematoma will receive local care. Heat and Bengay to posterior neck for pain. Tylenol as needed (3) Depression with anxiety: Plan: Chronic. Treated with paroxetine and hydroxyzine (4) Hypothyroidism: Plan: Stable. TSH = 1.9 on 01/27/2023. Continue Synthroid replacement therapy (5) Abnormal laboratory test result: Plan: Mildly elevated LFTs on admission. We will follow. Minimally elevated troponin. No chest pain. No acute EKG changes. Plan She may need short-term SNF placement prior to return to independent living. OT and PT assessments requested Admission and Anticipated Discharge Date Admission Date: March 29, 2023 Subjective Alert and oriented. No distressed. She was admitted with suspected bilateral lower extremity cellulitis and is now on Rocephin and vancomycin. She also fell and suffered a closed head injury. She has a small abrasion and hematoma in the mid forehead. Head CT scan negative. C-spine CT scan negative. She has been admitted from observation status Review of Systems Review of Systems: Constitutional-no fever or chills ENT-no blurred vision, no double vision, no epistaxis, no sore throat Respiratory-no cough, no wheezing, no shortness of breath Cardiac-no palpitations, no chest pain, no syncope GI-no nausea, vomiting, diarrhea, melena, hematochezia -no urinary retention, no urinary incontinence, no dysuria, no hematuria Musculoskeletal-no joint pain, no muscle tenderness Skin-no bruising, no rashes, no pruritus Neuro-no isolated weakness, no paresthesia, no weakness Psych-no depression, no anxiety Physical Exam 2 Physical Exam: General-alert and oriented x3, no fevers, no chills HEENT-small hematoma mid forehead area from falling at home. Pupils equal and reactive to light, extraocular muscles intact Neck-no lymphadenopathy or thyromegaly, trachea midline Chest-clear to auscultation percussion. No rales wheezing or rhonchi Cardiac-regular rate and rhythm, normal S1 and S2, no murmurs Abdomen-normal bowel sounds, nontender, no hepatosplenomegaly Extremities-bilateral lower extremity cellulitic changes below the knees. She appears to have chronic venous insufficiency Neuro-cranial nerves II through XII intact, motor and sensory function within normal limits, strength symmetrical , no focal deficits Psych-normal affect, normal mood Results & Data Results & Data Vital Signs (Past 12 Hours) Vital Signs Temp Pulse Resp BP Pulse Ox O2 Del Method 03/29/23 15:33 36.8 C 75 18 136/71 95 Room Air 03/29/23 07:58 36.5 C 75 18 120/63 95 Room Air Laboratory Results 03/28/23 19:30 03/29/23 06:25 PG Care Time/CCT Total # of Minutes Spent Total Time Spent with Patient: Total time spent is greater than 50% in coordination of care (as documented) at patient's floor/unit and/or counseling patient: Coding Level of Care Code 40399 SUB INP/OBS CARE 3/50MIN Diagnoses Cellulitis L03.115 Laterality: right Site of cellulitis: extremity Site of cellulitis of extremity: lower extremity CHI (closed head injury) S09.90XA Depression with anxiety F41.8 Hypothyroidism E03.9 Hypothyroidism type: acquired Abnormal laboratory test result R89.9 (1) Cellulitis Laterality: right Site of cellulitis: extremity Site of cellulitis of extremity: lower extremity Qualified Code(s): L03.115 - Cellulitis of right lower limb (4) Hypothyroidism Hypothyroidism type: acquired Qualified Code(s): E03.9 - Hypothyroidism, uns pecified
--- NOTE | 2023-03-29 19:32 | Electrocardiogram Report ---
Test Reason : Blood Pressure : / mmHG Vent. Rate : 102 BPM Atrial Rate : 102 BPM P-R Int : 132 ms QRS Dur : 078 ms QT Int : 348 ms P-R-T Axes : 051 045 045 degrees QTc Int : 453 ms Sinus tachycardia Otherwise normal ECG When compared with ECG of 06-SEP-2022 17:20, No significant change was found Confirmed by Pernell Couch ([id number]) on 03/29/2023 7:32:05 PM Referred By: CLAYTON Confirmed By:Pernell Couch
[2023-03-29] MEDS: VANCOMYCIN HCL 750 MG in SODIUM CHLORIDE 0.9% 250 ML IV SCH (19:36)
[2023-03-29] MEDS: PARoxetine HCL 20 MG TAB PO SCH (21:19)
[2023-03-29] MEDS: lamoTRIgine 100 MG TAB PO SCH (21:19)
[2023-03-30] MEDS: ACETAMINOPHEN 325 MG TAB PO PRN ×2 (03:39→09:05)
[2023-03-30] MEDS: LEVOTHYROXINE SODIUM 75 MCG TABLET PO SCH (05:56)
[2023-03-30] MEDS: cefTRIAXone SODIUM 1,000 MG in DEXTROSE 5% AD-VAN 50 ML IV SCH (05:56)
[2023-03-30 07:18] LABS: Hematocrit (blood only) 32.2 % (37.0-47.0); Hemoglobin 10.6 g/dl (12.0-16.0); Mean Corpuscular Hemoglobin 29.2 pg (25.0-34.0); Mean Corpuscular Hgb Conc 32.9 g/dL (32.0-36.0); Mean Corpuscular Volume 88.7 fL (80.0-100.0); Mean Platelet Volume 8.9 fL (9.4-12.4); Platelet Count 271 K/uL (130-400); RDW Coefficient of Variation 13.7 % (11.5-14.5); RDW Standard Deviation 44.7 fL (36.4-46.3); Red Blood Count 3.63 M/uL (4.20-5.40); White Blood Count 8.89 K/ul (4.8-10.8)
[2023-03-30 07:50] LABS: Albumin Level 3.1 gm/dl (3.4-5.0); BUN Creatinine Ratio 15.6 (10-20); Bilirubin Direct 0.1 mg/dl (0-0.2); Bilirubin,Total 0.7 mg/dl (0.2-1.0); Calcium 8.1 mg/dl (8.6-10.3); Creatinine Clr Calc Pharmacy 52.4 ml/min; Est GFR (African American) 83.9 ml/min; Est GFR (Non-African American) 72.4 ml/min; Potassium 3.7 mmol/L (3.5-5.1); Total Protein 5.9 gm/dl (6.0-8.3)
[2023-03-30] MEDS: VANCOMYCIN HCL 750 MG in SODIUM CHLORIDE 0.9% 250 ML IV SCH ×2 (08:58→22:23)
[2023-03-30] MEDS: oxyBUTYnin chloride 5 MG TAB PO SCH ×2 (09:04→22:29)
[2023-03-30] MEDS: PANTOprazole 40 MG TAB PO SCH (09:05)
[2023-03-30] MEDS: ENOXAPARIN INJ 40 MG/0.4 ML SYR SQ SCH (09:05)
[2023-03-30] MEDS: hydrOXYzine HCl 10 MG TAB PO SCH ×3 (12:14→23:54)
[2023-03-30] MEDS ORDERED: DICLOFENAC SODIUM 25 MG TABDR PO ONE (14:15)
--- NOTE | 2023-03-30 15:21 | Hospitalist Progress Note ---
Date of Service March 30, 2023 Assessment & Plan (1) Cellulitis: Plan: Bilateral lower extremity cellulitis below the knees. She currently is on Rocephin and vancomycin, day 2 (2) CHI (closed head injury): Plan: Patient with a fall earlier in the day resulting in frontal head trauma. CT of the head and cervical spine unremarkable. A small mid forehead hematoma will receive local care. Heat and Bengay to posterior neck for pain. Tylenol as needed (3) Depression with anxiety: Plan: Chronic. Treated with paroxetine and hydroxyzine (4) Hypothyroidism: Plan: Stable. TSH = 1.9 on 01/27/2023. Continue Synthroid replacement therapy (5) Abnormal laboratory test result: Plan: Mildly elevated LFTs on admission. We will follow. Minimally elevated troponin. No chest pain. No acute EKG changes. (6) Degenerative arthritis: Plan: Voltaren started Plan Probable discharge back to previous living circumstances. Possibly tomorrow, March 31 Admission and Anticipated Discharge Date Admission Date: March 29, 2023 Subjective Alert and oriented. Both legs look better with less erythema. Troponin is minimally elevated with no evidence of acute coronary syndrome. LFTs are also minimally elevated. She has arthritic symptoms mostly in her back. Voltaren started. She remains on intravenous Rocephin and vancomycin. Hopefully she can go home soon on an oral antibiotic. Review of Systems Review of Systems: Constitutional-no fever or chills ENT-no blurred vision, no double vision, no epistaxis, no sore throat Respiratory-no cough, no wheezing, no shortness of breath Cardiac-no palpitations, no chest pain, no syncope GI-no nausea, vomiting, diarrhea, melena, hematochezia -no urinary retention, no urinary incontinence, no dysuria, no hematuria Musculoskeletal-no joint pain, no muscle tenderness Skin-no bruising, no rashes, no pruritus Neuro-no isolated weakness, no paresthesia, no weakness Psych-no depression, no anxiety Physical Exam Physical Exam: General-alert and oriented x3, no fevers, no chills HEENT-small hematoma mid forehead area from falling at home. Pupils equal and reactive to light, extraocular muscles intact Neck-no lymphadenopathy or thyromegaly, trachea midline Chest-clear to auscultation percussion. No rales wheezing or rhonchi Cardiac-regular rate and rhythm, normal S1 and S2, no murmurs Abdomen-normal bowel sounds, nontender, no hepatosplenomegaly Extremities-bilateral lower extremity cellulitic changes below the knees have improved. Less erythema. She appears to have underlying chronic venous insufficiency Neuro-cranial nerves II through XII intact, motor and sensory function within normal limits, strength symmetrical , no focal deficits Psych-normal affect, normal mood Results & Data Results & Data Vital Signs (Past 12 Hours) Vital Signs Temp Pulse Resp BP BP Pulse Ox O2 Del Method 03/30/23 14:48 36.7 C 72 16 138/54 L 96 Room Air 03/30/23 08:00 36.8 C 70 16 165/76 H 94 Room Air Laboratory Results 03/30/23 06:38 03/30/23 06:38 PG Care Time/CCT Total # of Minutes Spent Total Time Spent with Patient: Total time spent is greater than 50% in coordination of care (as documented) at patient's floor/unit and/or counseling patient: Coding Level of Care Code 39480 SUB INP/OBS CARE 3/50MIN Diagnoses Cellulitis L03.115 Laterality: right Site of cellulitis: extremity Site of cellulitis of extremity: lower extremity CHI (closed head injury) S09.90XA Depression with anxiety F41.8 Hypothyroidism E03.9 Hypothyroidism type: acquired Abnormal laboratory test result R89.9 Degenerative arthritis M19.90 (1) Cellulitis Laterality: right Site of cellulitis: extremity Site of cellulitis of extremity: lower extremity Qualified Code(s): L03.115 - Cellulitis of right lower limb (4) Hypothyroidism Hypothyroidism type: acquired Qualified Code(s): E03.9 - Hypothyroidism, unspecified
[2023-03-30] MEDS: lamoTRIgine 100 MG TAB PO SCH (22:27)
[2023-03-30] MEDS: PARoxetine HCL 20 MG TAB PO SCH (22:28)
[2023-03-30] MEDS: DICLOFENAC SODIUM 25 MG TABDR PO SCH (22:29)
[2023-03-31] MEDS: cefTRIAXone SODIUM 1,000 MG in DEXTROSE 5% AD-VAN 50 ML IV SCH (06:38)
[2023-03-31] MEDS: LEVOTHYROXINE SODIUM 75 MCG TABLET PO SCH (06:39)
[2023-03-31] MEDS ORDERED: VANCOMYCIN LEVEL ONE (07:30)
[2023-03-31 07:42] LABS: Basophils # (auto) 0.03 K/uL (0-0.2); Basophils % (auto) 0.5 %; Eosinophils # (auto) 0.32 K/uL (0-0.50); Eosinophils % (auto) 5.4 %; Hematocrit (blood only) 31.1 % (37.0-47.0); Hemoglobin 10.4 g/dl (12.0-16.0); Immature Granulocytes # (auto) 0.02 K/uL (0.01-0.20); Immature Granulocytes % (auto) 0.3 %; Lymphocytes # (auto) 1.57 K/uL (1.2-3.4); Lymphocytes % (auto) 26.4 %; Mean Corpuscular Hemoglobin 28.8 pg (25.0-34.0); Mean Corpuscular Hgb Conc 33.4 g/dL (32.0-36.0); Mean Corpuscular Volume 86.1 fL (80.0-100.0); Mean Platelet Volume 8.5 fL (9.4-12.4); Monocytes # (auto) 0.66 K/uL (0.11-0.59); Monocytes % (auto) 11.1 %; Neutrophils # (auto) 3.35 K/uL (1.40-6.50); Neutrophils % (auto) 56.3 %; Platelet Count 267 K/uL (130-400); RDW Coefficient of Variation 13.6 % (11.5-14.5); RDW Standard Deviation 43.4 fL (36.4-46.3); Red Blood Count 3.61 M/uL (4.20-5.40); White Blood Count 5.95 K/ul (4.8-10.8)
[2023-03-31 08:01] LABS: BUN Creatinine Ratio 18.4 (10-20); Bilirubin Direct 0.1 mg/dl (0-0.2); Bilirubin,Total 0.6 mg/dl (0.2-1.0); Calcium 8.1 mg/dl (8.6-10.3); Creatinine Clr Calc Pharmacy 46.4 ml/min; Est GFR (African American) 72.4 ml/min; Est GFR (Non-African American) 62.5 ml/min; Potassium 3.8 mmol/L (3.5-5.1); Total Protein 5.8 gm/dl (6.0-8.3)
--- NOTE | 2023-03-31 09:10 | Pharmacy Report ---
Pharmacy PK ABX Note - Date of Service March 31, 2023 - Assessment and Plan Assessment 03/31: * Zhane is on day 3 of vancomycin and ceftriaxone for b/l LE cellulitis. * Showing clinical improvement per provider notes. Afebrile, no leukocytosis. * Blood cultures remain negative. 82 year old F receiving Vancomycin and Ceftriaxone for treatment of bilateral lower extremity cellulitis. * Day #1 of antimicrobial therapy. * PMHx significant for residing in a senior living ([facility]). * HPI: Evaluated at [facility] ED on morning of 03/28/23 after a fall at senior living. Noted to have b/l LE cellulitis and discharged on Keflex. Returned last evening reporting chills, shakes, worsening redness and pain in her b/l LE. * Labs/Vitals: Afebrile. Hemodynamically stable. No leukocytosis. SCr stable and at baseline. Lactate 1.9 and procalcitonin 0.12. * Micro: Blood cultures pending. MRSA nasal swab positive. Plan Vancomycin * Current regimen: 750 mg IV every 12 hours * Vanco level obtained this morning resulted as 14.8 mcg/mL. This is predicted to achieve target AUC/DANAE of 400-600 mg/L.hr * Predicted AUC at steady state: 513 mg/L.hr * Continue current dose * Will repeat level in the next 48-72 hours if therapy is continued and/or change in patient clinical status Pharmacy will continue to follow and will adjust dose/frequency as necessary. Thank you.
[2023-03-31] MEDS: ENOXAPARIN INJ 40 MG/0.4 ML SYR SQ SCH (09:11)
[2023-03-31] MEDS: DICLOFENAC SODIUM 25 MG TABDR PO SCH (09:11)
[2023-03-31] MEDS: oxyBUTYnin chloride 5 MG TAB PO SCH (09:12)
[2023-03-31] MEDS: PANTOprazole 40 MG TAB PO SCH (09:12)
[2023-03-31] MEDS: VANCOMYCIN HCL 750 MG in SODIUM CHLORIDE 0.9% 250 ML IV SCH (09:13)
[2023-03-31] MEDS: hydrOXYzine HCl 10 MG TAB PO SCH (11:15)
--- NOTE | 2023-03-31 12:42 | Discharge Summary ---
Date of Service March 31, 2023 Admission HPI Per Admitting Provider Zhane Howard is an 82-year-old female with history of anxiety, hypothyroidism, paroxysmal atrial fibrillation presenting with worsening pain and redness of her bilateral lower extremities. Patient was seen in the ER 03[facility]28/2023 [facility] She reports she slid off the bed and struck her head on the carpeted floor. No loss of consciousness. ER work-up largely unremarkable including normal CT head and cervical spine. Patient noted to have bilateral lower extremity redness and was subsequently discharged on Keflex. Patient returns this evening with complaint of chills, shakes and worsening redness and pain in her bilateral lower extremities. she denies chest pain, cough, shortness of breath. Denies abdominal pain, nausea, vomiting, diarrhea, constipation. She has intermittent dysuria but nothing presently. She is complaining of some muscle pain and tension in her left neck and upper back. No additional complaints at this time In the ER she is afebrile, tachycardic with heart rate of 106, blood pressure stable. No respiratory distress. Adequate oxygenation on room air ER course: Cefepime Vancomycin Principal Diagnosis Bilateral lower extremity cellulitis, chemical fall with closed head injury, mildly elevated LFTs, mildly elevated troponin, degenerative joint disease Discharge Exam General-alert and oriented x3, no fevers, no chills HEENT-small hematoma mid forehead area from falling at home. Pupils equal and reactive to light, extraocular muscles intact Neck-no lymphadenopathy or thyromegaly, trachea midline Chest-clear to auscultation percussion. No rales wheezing or rhonchi Cardiac-regular rate and rhythm, normal S1 and S2, no murmurs Abdomen-normal bowel sounds, nontender, no hepatosplenomegaly Extremities-bilateral lower extremity cellulitic changes below the knees have improved. Less erythema. She appears to have underlying chronic venous insufficiency Neuro-cranial nerves II through XII intact, motor and sensory function within normal limits, strength symmetrical , no focal deficits Psych-normal affect, normal mood Discharge Data Allergies Allergy/AdvReac Type Severity Reaction Status Date / Time No Known Allergies Allergy Verified 03/28/23 21:01 Consultations 03/29/23 00:26 ED Decision to Admit Stat Ordered Studies 03/28/23 20:26 US venous doppler [facility] Stat Hospital Course (1) Cellulitis: Bilateral lower extremity cellulitis below the knees. Improved with Rocephin and vancomycin, day 3. Will discharge on linezolid (2) CHI (closed head injury): Patient with a fall earlier in the day resulting in frontal head trauma. CT of the head and cervical spine unremarkable. A small mid forehead hematoma will receive local care. Heat and Bengay to posterior neck for pain. Tylenol as needed (3) Depression with anxiety: Chronic. Treated with paroxetine and hydroxyzine (4) Hypothyroidism: Stable. TSH = 1.9 on 01/27/2023. Continue Synthroid replacement therapy (5) Abnormal laboratory test result: Mildly elevated LFTs on admission. We will follow. Minimally elevated troponin. No chest pain. No acute EKG changes. (6) Degenerative arthritis: Voltaren started this admission. This is helped and will be continued [facility] Total Time Total Time Spent Total Time Spent (In Minutes): 40 minutes Discharge Plan Discharge Items Patient Disposition: Home - Self-Care Reason For Visit: CELLULITIS Discharge Diagnosis: Bilateral lower extremity cellulitis, mechanical fall with closed head injury, degenerative joint disease, mildly elevated LFTs, mildly elevated troponin without acute coronary syndrome Activity: Resume your previous activity Non-emergency contact: Primary Care Provider Call non-emergency contact if: you have any medication questions Follow-up/Referrals: CLAYTON, [Primary Care Provider] - Diet: Carb Consistent or DM2 and Heart Healthy Addtl Attending Provider Instructions: Take linezolid antibiotic for 1 more week. Continue Voltaren (diclofenac) for arthritic pain Pending Studies at Discharge: No Stand-Alone Forms: My [facility] [place], Smoking Cessation Medications and DC Order Prescriptions: New diclofenac sodium 25 mg Tablet,Delayed Release (Dr/Ec) 50 mg PO BID Qty: 60 0RF linezolid 600 mg tablet 600 mg PO BID Qty: 14 0RF Continued oxybutynin chloride 5 mg tablet 2.5 mg PO BID acetaminophen [Tylenol 8 Hour] 650 mg tablet extended release 650 mg PO Q12H MDD 3 GRAMS APAP/24 HOURS PRN (Reason: Pain) Multivitamin 50 Plus Tablet 1 tab PO DAILY levothyroxine 75 mcg tablet 75 mcg PO QAM omeprazole 20 mg capsule,delayed release(DR/EC) 20 mg PO QAM Caltrate 600 plus D 600 mg (1,500 mg)-800 unit Tablet,Chewable 1 tab PO QAM lamotrigine 200 mg tablet 200 mg PO HS hydroxyzine HCl 10 mg tablet 10 mg PO BID Rx Instructions: TAKES AT 1100 & 1700 triamcinolone acetonide 0.1 % Cream 1 applic TOPICAL BID PRN (Reason: SKIN IRRITATION ON SHINS) calcium carbonate [Tums Ultra] 400 mg calcium (1,000 mg) Tablet,Chewable 400 mg PO QID PRN (Reason: Indigestion) simethicone 125 mg Tablet,Chewable 125 mg PO QID PRN (Reason: GAS DISCOMFORT) nystatin 100,000 unit/gram Powder 1 applic TOPICAL BID PRN (Reason: SKIN REDNESS) hydroxyzine HCl [Atarax] 10 mg Tablet 20 mg PO HS hydroxyzine HCl [Atarax] 10 mg Tablet 10 - 20 mg PO DIRECTED PRN (Reason: Anxiety) Systane Gel 0.4-0.3 % Drops,Gel 1 drp OPHTHALMIC (EYE) QID PRN (Reason: Dry Eyes) melatonin 10 mg Tablet 10 mg PO HS PRN (Reason: Sleep) paroxetine HCl 20 mg tablet 20 mg PO HS omega 7-tdw-rcb-fish oil [Fish Oil] 1,200 (144-216) mg Capsule 1 cap PO DAILY PreserVision AREDS-2 250-90-40-1 mg Capsule 1 tab PO AMHS Discharge Orders: Discharge Order (Routine); Ordered 03/31/23 Ordered By: Camilo Loo Admission Data Admit Date/Time: 03/29/23 14:34 Attending Provider: Camilo Loo Admit Provider: Jessie Mendoza Primary Care Provider: Henok ARNOLD Providers: Jessie Mendoza Coding Level of Care Code 21010 INP/OBS DISCH >30 MIN Diagnoses Cellulitis L03.115 Laterality: right Site of cellulitis: extremity Site of cellulitis of extremity: lower extremity CHI (closed head injury) S09.90XA Depression with anxiety F41.8 Hypothyroidism E03.9 Hypothyroidism type: acquired Abnormal laboratory test result R89.9 Degenerative arthritis M19.90
== END 2023-03-31 16:09 | disposition home or self-care (01) | DRG 603 ==
LOC: 3N 19:06 → ED 19:06 → SUATTDRO 03-29 00:57 → 3N 03-29 01:47

== ENCOUNTER 2023-06-23 17:07 | Inpatient (IN) ==
--- NOTE | 2023-06-23 17:13 | ED Triage Note ---
Date of Service June 23, 2023 History of Present Illness This patient was briefly evaluated while in triage. An abbreviated physical exam was performed. This patient is a 82-year-old Female who presents to the ED for evaluation of lower leg erythema and edema. She is concerned for cellulitis. This acutely worsened last evening. She notes bilateral leg pain. She notes history of similar before. Pain is a 9/10. Left> Right in regard to pain. Physical Exam GENERAL: 82 year old female. In no acute distress. SKIN: Bilateral lower extremity erythema. HEART: Regular rate and rhythm. LUNGS: Clear to auscultation. ABDOMEN: Bowel sounds normoactive. No guarding or rigidity. No tenderness of palpation. NEURO: Alert and oriented. No deficits. MUSCULOSKELETAL: No deformities to inspection of the extremities. PSYCH: Patient is pleasant and answers all questions appropriately. Initial orders for labs and / or imaging were placed and patient was placed in the waiting area until a bed is available. Please see further documentation for the full ED course.
[2023-06-23 19:02] LABS: Basophils # (auto) 0.03 K/uL (0-0.2); Basophils % (auto) 0.2 %; Eosinophils # (auto) 0.05 K/uL (0-0.50); Eosinophils % (auto) 0.4 %; Hematocrit (blood only) 35.4 % (37.0-47.0); Hemoglobin 11.4 g/dl (12.0-16.0); Immature Granulocytes # (auto) 0.04 K/uL (0.01-0.20); Immature Granulocytes % (auto) 0.3 %; Lymphocytes # (auto) 1.45 K/uL (1.2-3.4); Lymphocytes % (auto) 11.3 %; Mean Corpuscular Hemoglobin 28.9 pg (25.0-34.0); Mean Corpuscular Hgb Conc 32.2 g/dL (32.0-36.0); Mean Corpuscular Volume 89.6 fL (80.0-100.0); Mean Platelet Volume 8.5 fL (9.4-12.4); Monocytes # (auto) 1.31 K/uL (0.11-0.59); Monocytes % (auto) 10.2 %; Neutrophils # (auto) 9.92 K/uL (1.40-6.50); Neutrophils % (auto) 77.6 %; Platelet Count 290 K/uL (130-400); Red Blood Count 3.95 M/uL (4.20-5.40)
[2023-06-23 19:03] LABS: Alanine Aminotransferase 118 U/L (7-52); Albumin Globulin Ratio 1.2 (0.9-2); Albumin Level 4.3 gm/dl (3.4-5.0); Alkaline Phosphatase 331 U/L (34-104); Anion Gap 7 (3-11); Aspartate Aminotransferase 124 U/L (13-39); BUN Creatinine Ratio 17.5 (10-20); Bilirubin,Total 1.2 mg/dl (0.2-1.0); Blood Urea Nitrogen 27 mg/dl (6-23); Calcium 9.5 mg/dl (8.6-10.3); Carbon Dioxide 30 mmol/L (21-32); Chloride 99 mmol/L (98-107); Est GFR (African American) 36.3 ml/min; Est GFR (Non-African American) 31.3 ml/min; Globulin 3.6 gm/dl (2.5-4.0); Glucose 145 mg/dl (70-99(Fasting)); Potassium 3.7 mmol/L (3.5-5.1); Sodium 136 mmol/L (136-145); Total Protein 7.9 gm/dl (6.0-8.3)
[2023-06-23] MEDS ORDERED: cefTRIAXone SODIUM 1,000 MG in DEXTROSE 5% AD-VAN 50 ML IV STA (22:53)
[2023-06-23] MEDS ORDERED: cefTRIAXone SODIUM 1,000 MG in DEXTROSE 5% 100 ML IV STA (22:58)
[2023-06-23] MEDS ORDERED: SODIUM CHLORIDE 0.9% 1000ML 1,000 ML IV SCH (23:00)
--- NOTE | 2023-06-24 01:26 | History & Physical Report ---
Date of Service June 24, 2023 Assessment & Plan (1) Swelling of both lower extremities: Plan: Patient is an 82-year-old female with a past medical history of anxiety, hypothyroidism, paroxysmal atrial fibrillation who presents to the hospital for evaluation of bilateral lower extremity erythema and swelling. Patient with previous diagnoses of bilateral lower extremity cellulitis. Patient started on antibiotics in ED. Patient also seemingly fluid overloaded and given a single dose of Lasix. Patient is hemodynamically stable. -Admit to [facility] -Given rarity of bilateral lower extremity cellulitis and repeat similar presentations x3, other differentials should be considered -Differentials include lipodermatosclerosis, vascular insufficiency, stasis dermatitis -Patient afebrile, not tachycardic, or showing any other SIRS criteria -Patient started on Rocephin in the ED, switch to gram-positive coverage with Ancef -CRP elevated at 9.5 indicative of inflammatory process -Lipodermatosclerosis more likely diagnosis as it can cause leukocytosis, elevated inflammatory markers (CRP), pain, and is associated with venous insufficiency which patient appears to have -Given IV Lasix in ED, monitor I's and O's -Patient would benefit from compression stockings long-term -CBC in the morning, recheck CRP as well (2) Hypoxia: Plan: -Currently requiring 6 L nasal cannula -Chest x-ray indicative of pulmonary edema per my interpretation -BNP pending, procalcitonin negative making pneumonia much less likely -Status post 20 mg of IV Lasix. -Supplemental oxygen as needed (3) JOSEFINA (acute kidney injury): Plan: -Creatinine at 1.54 which is double her baseline -Suspect in part due to fluid overload -Lasix as above -CMP in the morning (4) Depression with anxiety: Plan: -Continue paroxetine 30 mg at night -continue Lamictal (5) Hypothyroidism: Plan: -Continue Synthroid, TSH within normal limits (6) Elevated liver enzymes: Plan: -Chronic issue but seems exaggerated on today's visit -Suspect due to fluid overload causing congestive hepatopathy -Otherwise could be fatty liver, hepatitis -We will order right upper quadrant ultrasound and hepatitis screenings in a.m. -Recheck CMP and direct bili in am (7) Essential tremor: Plan: -Noted, not on any med for this Plan Disposition: Admit to [facility] Diet: Heart healthy DVT prophylaxis: Heparin CODE STATUS: Full code History of Present Illness Chief Complaint: LE edema Primary Care Provider: CHILHOWEE Patient is an 82-year-old female with a past medical history of anxiety, hypothyroidism, paroxysmal atrial fibrillation who presents to the hospital for evaluation of bilateral lower extremity erythema and swelling. Patient was sent by her living facility, at the [place], due to concern for her lower extremities becoming red, hot to the touch, and swollen bilaterally. Patient reports that she has been feeling generally unwell for the past day or so complaining of chills, shakes, and subjectively feeling warm. She has been admitted for bilateral cellulitis before with the most recent admission being on 03/29/2023. At that time she was diagnosed with bilateral lower extremity cellulitis and was treated with Rocephin and vancomycin x3 days inpatient and was discharged with linezolid. This seemed to resolve her issues with her lower extremities. She returns with essentially the same symptoms. Denies hitting her legs off of any object or causing any open wounds. Denies history of congestive heart failure. Denies nausea and vomiting. No recorded fevers at home. No diarrhea or constipation. ED course: Patient brought back and evaluated by provider. Labs are significant for white count of 12.8, hemoglobin 11.4, BUN of 27, creatinine of 1.54 with a baseline of 0.85. Total bilirubin at 1.2, AST of 1.4, ALT at 118, alkaline phosphatase at 331, CRP at 9.46 negative procalcitonin. Patient is COVID- negative. Chest x-ray obtained and does show curly B-lines and vascular congestion with edema per my interpretation. Patient was given a 1 g dose of Rocephin. The hospitalist service was consulted for admission. Allergies Allergy/AdvReac Type Severity Reaction Status Date / Time No Known Allergies Allergy Verified 06/08/23 14:49 Home Medications Medication Instructions Recorded Confirmed Type levothyroxine 75 mcg tablet 75 mcg PO DAILYBB 08/16/18 06/23/23 History omeprazole 20 mg capsule,delayed 20 mg PO QAM 08/16/18 06/23/23 History release vit C 250 mg-vit E 90 mg-zinc 40 1 tab PO BID 03/28/21 06/23/23 History mg-copper 1 cl-yljmge-cjjazs capsule (PreserVision AREDS-2) lamotrigine 200 mg tablet 200 mg PO HS 01/08/22 06/23/23 History oxybutynin chloride 5 mg tablet 2.5 mg PO BID 01/06/23 06/23/23 History hydroxyzine HCl 10 mg tablet 10 mg PO BID PRN Anxiety 03/28/23 06/23/23 History hydroxyzine HCl 10 mg tablet 20 mg PO .DAILY AT 11 PM 03/28/23 06/23/23 History melatonin 10 mg tablet 10 mg PO HS PRN Sleep 03/28/23 06/23/23 History nystatin 100,000 unit/gram topical 1 applic topical BID PRN 03/28/23 06/23/23 History powder excoriation peg 400-propylene glycol 0.4 %-0.3 1 drp ophthalmic (eye) 6XD PRN Dry 03/28/23 06/23/23 History % eye gel drops (Systane Gel) Eyes simethicone 125 mg chewable tablet 125 mg PO QID PRN GAS DISCOMFORT 03/28/23 06/23/23 History furosemide 20 mg tablet 20 mg PO DAILY 06/08/23 06/23/23 History acetaminophen 650 mg 650 mg PO TID PRN Pain 06/23/23 06/23/23 History tablet,extended release (Tylenol 8 Hour) calcium carbonate 400 mg calcium 400 mg PO QID PRN Indigestion 06/23/23 06/23/23 History (1,000 mg) chewable tablet (Tums Ultra) calcium carbonate 600 mg-vitamin 1 tab PO DAILY 06/23/23 06/23/23 History D3 10 mcg (400 unit) tablet (Calcium 600 + D(3)) hydroxyzine HCl 10 mg tablet 10 - 20 mg PO UD 06/23/23 06/23/23 History multivitamin (Daily-Priscila tablet) 1 tab PO DAILY 06/23/23 06/23/23 History omega 8-efr-ozt-fish oil 1,200 mg 1 cap PO QAM 06/23/23 06/23/23 History (144 mg-216 mg) capsule (Fish Oil) paroxetine HCl 30 mg tablet (Paxil) 30 mg PO HS 06/23/23 06/23/23 History Past Med/Surg History Medical History (Updated 06/24/23 @ 04:07 by Shama Ruano MD) Anxiety Aortic stenosis Cellulitis Degenerative arthritis Depression with anxiety Heart murmur Patient will be scheduled for an echocardiogram she is no recollection of being told that she had a heart murmur Hypothyroidism Paroxysmal atrial fibrillation with RVR Postherpetic neuralgia Rib fracture Weakness Surgical History S/P cataract surgery Family History Father , age 76 of metastatic prostate cancer Cancer Prostate cancer Heart disease Mother , age 93 Rheumatoid arthritis Social History Smoking Status: Never smoker Second Hand Exposure: No; Do You Dip or Chew Tobacco: No; Hx Alcohol Use: No Hx Substance Use: No Preferred Language: Italian Communication Ability: Effective Pharmacognosy Teacher Required: No Beliefs That Will Affect Care: None marital status: Single Current Living Situation: Personal Care Facility Current Living Situation Comment: lives at [facility] current occupational status: retired 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57 How many Children do You have: 0 Feels Safe at Home: Yes Assistive Devices: Walker Review of Systems Review of Systems: All systems reviewed & are unremarkable except as noted in HPI & below Physical Exam Constitutional: well developed, well nourished and cooperative; no acute distress Eyes: + anicteric sclerae Neck: trachea midline, no thyromegaly Respiratory: normal respiratory effort; no respiratory distress shallow breaths Cardiovascular: Rate/Rhythm: regular rate and regular rhythm Heart Sounds: + murmur Vessels: + JVD Extremities: + edema Gastrointestinal (Abdomen): normal bowel sounds, soft, nontender, no hepatosplenomegaly Musculoskeletal: Head/Neck/Chest: normocephalic and head atraumatic Skin: There is an erythematous, well demarcated rash that is hot to the touch on lower extremities bilaterally that extends from the ankle proximally to the superior third of the guerrero. No discharge or weeping. Neurologic: moves all extremities Psychiatric: A+Ox3, euthymic affect Results & Data Results & Data Vital Signs (Past 12 Hours) Vital Signs Temp Pulse Resp BP Pulse Ox O2 Del Method O2 Flow Rate 06/24/23 00:00 91 Nasal Cannula 6 06/23/23 17:09 36.9 C 98 H 20 156/58 H 96 Room Air Laboratory Results CBC, CMP, CRP, BMP, procalcitonin all reviewed Code Status & VTE Plan Code Status Full code VTE Prophylaxis Plan VTE Prophylaxis will be ordered: Yes Supervising Physician Co-Signing Physician Notes I personally examined the patient and verified all chen points of history and exam, discussed case, and agree with decision making with Dr. Lara with the following additions/exceptions: This patient is an 82-year-old female here with increased redness and warmth that came on more acutely and associated with pain, with suspicion for cellulitis of the lower extremities. With mild leukocytosis, no fevers, but elevated CRP supporting diagnosis of cellulitis Patient also with hypoxia, requiring 6 L nasal cannula which is new for her With elevated LFTs further elevated than previous History and ROS otherwise reviewed as above Vitals reviewed Gen: Sleeping but easily wakes up and is pleasant, NAD HEENT: Anicteric sclerae, EOMI CV: Regular rate and rhythm, 3/6 ALEXA at the RUSB, 2+ pitting edema of the legs to the knees bilaterally Pulm: Some diminished breath sounds at the bases, otherwise no wheezes or rhonchi Abd: +BS soft NT ND no masses or hernias Ext: 2+ pitting edema legs bilaterally Skin: Erythematous and warm bilateral legs from ankle to the knee CBC, CMP, procalcitonin, BNP reviewed Chest x-ray image personally reviewed by me and shows pleural effusions bilateral right greater than left and evidence of pulmonary vascular congestion- not officially read yet by radiology 82-year-old female here with bilateral lower extremity erythema and edema. Could possibly have cellulitis but could also be secondary to worsening edema and venous stasis as noted above. MRSA swab previously positive in March-add daptomycin to the regimen Follow CBC, CRP Follow erythema on legs LFTs elevated-agree likely hepatic congestion-agree with checking RUQ ultrasound just to rule out biliary obstruction given mildly elevated total bilirubin Was given Lasix 20 Mg IV x1 on admission. Continue home p.o. Lasix for now but will likely need further IV doses of Lasix-assess daily and redose as needed Check echocardiogram given aortic stenosis to see if has become severe and leading to heart failure (5) Hypothyroidism Hypothyroidism type: acquired Qualified Code(s): E03.9 - Hypothyroidism, unspecified
[2023-06-24] MEDS ORDERED: FUROSEMIDE INJ 20 MG/2 ML VIAL IV STA (01:41)
--- NOTE | 2023-06-24 02:40 | Emergency Department Note ---
Impression & Plan Cellulitis of left lower leg, Cellulitis of right lower leg ED Provider Note CHIEF COMPLAINT: Bilateral lower extremity redness HISTORY OF PRESENT ILLNESS: This 82-year-old female patient with past medical history of paroxysmal atrial fibrillation, thoracic compression fracture, essential tremor, polyneuropathy, cellulitis of the distal legs, acute kidney injury, presents to the emergency department [facility] where she was referred to the emergency department for concern over increasing redness and discomfort of the lower extremities. The patient states she has a history of cellulitis and thinks that this is a recurrence. She has not had a fever, but the legs do feel warm. She has not had any significant drainage. Patient denies taking any antibiotics lately REVIEW OF SYSTEMS: A review of systems was performed with positives and pertinent negatives listed in the history of present illness. 10 systems were reviewed and are otherwise negative. ALLERGIES: see below MEDICATIONS: see below PMH: see below SOCIAL HISTORY: see below DDx: Cellulitis, DVT, traumatic injury, venous stasis, allergic reaction, among others PHYSICAL EXAM: Vital signs reviewed. General: Elderly, chronically ill-appearing 82-year-old female HEENT: No scleral icterus, PERRLA, neck supple. Atraumatic. Cardiovascular: Regular rate and rhythm, no extra sounds. Pulmonary: Clear to auscultation bilaterally, normal work of breathing. Abdomen: Soft, nontender, nondistended, positive bowel sounds. Musculoskeletal: Atraumatic, no peripheral edema. Neurologic: Patient awake alert and oriented x 3, speech is clear Skin: Warm, dry, bilateral lower extremities with venous stasis changes, bright erythema from the ankle to the knee with no significant lymphangitic streaking appreciated. There is no open wound or drainage. EMERGENCY DEPARTMENT COURSE/MDM: This patient was evaluated and appeared to be in no significant distress. IV access was obtained and laboratory work was drawn. The patient was placed on the monitor and storage bin tender noted to be in a sinus rhythm at 98 bpm. Patient's physical examination is consistent with a bilateral lower extremity cellulitis, likely due to venous stasis. Blood cultures were obtained and the patient was medicated with IV ceftriaxone 1 g. Laboratory work is consistent she does have a mild leukocytosis at 12.8, normal lactate. Patient's case was discussed with the hospitalist service to evaluate the patient for admission and further management. Patient is aware of plan and agrees. RADIOLOGY: Chest x-ray to my interpretation reveals postsurgical change of the left shoulder, left pleural effusion and cardiomegaly. Otherwise refer to radiology. DISPOSITION: Admission Past Med/Surg History Medical History (Updated 06/26/23 @ 21:12 by Ludy Booker MD) Anxiety Aortic stenosis Cellulitis Degenerative arthritis Depression with anxiety Heart murmur Patient will be scheduled for an echocardiogram she is no recollection of being told that she had a heart murmur Hypothyroidism Paroxysmal atrial fibrillation with RVR Postherpetic neuralgia Rib fracture Weakness Surgical History S/P cataract surgery Family History Father , age 76 of metastatic prostate cancer Cancer Prostate cancer Heart disease Mother , age 93 Rheumatoid arthritis Social History Smoking Status: Never smoker Second Hand Exposure: No; Do You Dip or Chew Tobacco: No; Tobacco Cessation Education Requested by Patient: No Hx Alcohol Use: Yes Alcohol type: wine Hx Substance Use: No Preferred Language: Botswanan Communication Ability: Effective Education Specialist Required: No Beliefs That Will Affect Care: Jew marital status: Single Current Living Situation: Personal Care Facility Current Living Situation Comment: [facility] current occupational status: retired 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57 How many Children do You have: 0 Feels Safe at Home: Yes Safety Concerns: Feels Safe At This Time Assistive Devices: Walker Assistive Devices Comment: walker Allergies Allergies Allergy/AdvReac Type Severity Reaction Status Date / Time No Known Allergies Allergy Verified 06/08/23 14:49 Home Meds Home Medications Medication Instructions Recorded Confirmed levothyroxine 75 mcg tablet 75 mcg PO DAILYBB 08/16/18 06/23/23 omeprazole 20 mg capsule,delayed 20 mg PO QAM 08/16/18 06/23/23 release vit C 250 mg-vit E 90 mg-zinc 40 1 tab PO BID 03/28/21 06/23/23 mg-copper 1 [id number] capsule (PreserVision AREDS-2) lamotrigine 200 mg tablet 200 mg PO HS 01/08/22 06/23/23 oxybutynin chloride 5 mg tablet 2.5 mg PO BID 01/06/23 06/23/23 hydroxyzine HCl 10 mg tablet 10 mg PO BID PRN Anxiety 03/28/23 06/23/23 hydroxyzine HCl 10 mg tablet 20 mg PO .DAILY AT 11 PM 03/28/23 06/23/23 melatonin 10 mg tablet 10 mg PO HS PRN Sleep 03/28/23 06/23/23 nystatin 100,000 unit/gram topical 1 applic topical BID PRN 03/28/23 06/23/23 powder excoriation peg 400-propylene glycol 0.4 %-0.3 1 drp ophthalmic (eye) 6XD PRN Dry 03/28/23 06/23/23 % eye gel drops (Systane Gel) Eyes simethicone 125 mg chewable tablet 125 mg PO QID PRN GAS DISCOMFORT 03/28/23 06/23/23 furosemide 20 mg tablet 20 mg PO DAILY 06/08/23 06/23/23 acetaminophen 650 mg 650 mg PO TID PRN Pain 06/23/23 06/23/23 tablet,extended release (Tylenol 8 Hour) calcium carbonate 400 mg calcium 400 mg PO QID PRN Indigestion 06/23/23 06/23/23 (1,000 mg) chewable tablet (Tums Ultra) calcium carbonate 600 mg-vitamin 1 tab PO DAILY 06/23/23 06/23/23 D3 10 mcg (400 unit) tablet (Calcium 600 + D(3)) hydroxyzine HCl 10 mg tablet 10 - 20 mg PO UD 06/23/23 06/23/23 multivitamin (Daily-Priscila tablet) 1 tab PO DAILY 06/23/23 06/23/23 omega 9-ewr-[id number]-fish oil 1,200 mg 1 cap PO QAM 06/23/23 06/23/23 (144 mg-216 mg) capsule (Fish Oil) paroxetine HCl 30 mg tablet (Paxil) 30 mg PO HS 06/23/23 06/23/23 Results & Data (ED) Vital Signs Vital Signs - 24 hr 06/23/23 17:09 06/24/23 00:00 Temperature 36.9 C Temperature Source Temporal Artery Scan Pulse Rate 98 H Pulse Rhythm Regular Pulse Strength Normal Respiratory Rate 20 Respiratory Effort / Characteristics Non-Labored Spontaneous Non-Labored Respiratory Depth Normal Normal Respiratory Pattern Regular Blood Pressure 156/58 H Blood Pressure Mean 90 Blood Pressure Position Sitting Pulse Oximetry 96 91 Oxygen Delivery Method Room Air Nasal Cannula Oxygen Flow Rate 6 Sepsis Recent Fever Within 48 Hours No Sepsis New/Unexplained Change in Mental Status No Sepsis Action Taken by Nursing No Action Required Home Medications Current Medication List: was personally reviewed by me Laboratory Data Attestation: I reviewed the patient's lab results. 06/23/23 18:12 06/23/23 18:12 Lab Results 06/23/23 06/23/23 06/23/23 Range/Units 18:12 18:12 18:12 WBC 12.80 H (4.8-10.8) K/ul RBC 3.95 L (4.20-5.40) M/uL Hgb 11.4 L (12.0-16.0) g/dl Hct 35.4 L (37.0-47.0) % MCV 89.6 (80.0-100.0) fL MCH 28.9 (25.0-34.0) pg MCHC 32.2 (32.0-36.0) g/dL RDW Std Deviation 46.0 (36.4-46.3) fL RDW Coeff of Benita 14.0 (11.5-14.5) % Plt Count 290 (130-400) K/uL MPV 8.5 L (9.4-12.4) fL Immature Gran % (Auto) 0.3 % Neut % (Auto) 77.6 % Lymph % (Auto) 11.3 % Esmeralda % (Auto) 10.2 % Eos % (Auto) 0.4 % Baso % (Auto) 0.2 % Neut # (Auto) 9.92 H (1.40-6.50) K/uL Lymph # (Auto) 1.45 (1.2-3.4) K/uL Esmeralda # (Auto) 1.31 H (0.11-0.59) K/uL Eos # (Auto) 0.05 (0-0.50) K/uL Baso # (Auto) 0.03 (0-0.2) K/uL Immature Gran # (Auto) 0.04 (0.01-0.20) K/uL Sodium 136 (136-145) mmol/L Potassium 3.7 (3.5-5.1) mmol/L Chloride 99 (98-107) mmol/L Carbon Dioxide 30 (21-32) mmol/L Anion Gap 7 (3-11) BUN 27 H (6-23) mg/dl Creatinine 1.54 H (0.6-1.2) mg/dl Est Cr Clr Drug Dosing Not Reportable Est GFR ( Amer) 36.3 ml/min Est GFR (Non-Af Amer) 31.3 ml/min BUN/Creatinine Ratio 17.5 (10-20) Glucose 145 H (70-99(Fasting)) mg/dl Lactate 1.0 (0.4-2.0) mmol/L Calcium 9.5 (8.6-10.3) mg/dl Magnesium (1.7-2.4) mg/dl Total Bilirubin 1.2 H (0.2-1.0) mg/dl Direct Bilirubin (0-0.2) mg/dl AST 124 H (13-39) U/L ALT 118 H (7-52) U/L Alkaline Phosphatase 331 H (34-104) U/L C-Reactive Protein (0-0.5) mg/dl B-Natriuretic Peptide (0-100) pg/ml Total Protein 7.9 (6.0-8.3) gm/dl Albumin 4.3 (3.4-5.0) gm/dl Globulin 3.6 (2.5-4.0) gm/dl Albumin/Globulin Ratio 1.2 (0.9-2) Procalcitonin (0-0.5) ng/ml Hepatitis A IgM Ab (NON-REACTIVE) Hep Bs Antigen (NON-REACTIVE) Hep Bs Ag Confirmation Hep B Core IgM Ab (NON-REACTIVE) Hepatitis C Ab (EIA) (NON-REACTIVE) SARS-CoV-2, RNA, NAAT (NEGATIVE) Bld Cult ID Panel PCR (NotDetected) 06/23/23 06/23/23 06/23/23 Range/Units 18:12 18:12 18:12 WBC (4.8-10.8) K/ul RBC (4.20-5.40) M/uL Hgb (12.0-16.0) g/dl Hct (37.0-47.0) % MCV (80.0-100.0) fL MCH (25.0-34.0) pg MCHC (32.0-36.0) g/dL RDW Std Deviation (36.4-46.3) fL RDW Coeff of Benita (11.5-14.5) % Plt Count (130-400) K/uL MPV (9.4-12.4) fL Immature Gran % (Auto) % Neut % (Auto) % Lymph % (Auto) % Esmeralda % (Auto) % Eos % (Auto) % Baso % (Auto) % Neut # (Auto) (1.40-6.50) K/uL Lymph # (Auto) (1.2-3.4) K/uL Esmeralda # (Auto) (0.11-0.59) K/uL Eos # (Auto) (0-0.50) K/uL Baso # (Auto) (0-0.2) K/uL Immature Gran # (Auto) (0.01-0.20) K/uL Sodium (136-145) mmol/L Potassium (3.5-5.1) mmol/L Chloride (98-107) mmol/L Carbon Dioxide (21-32) mmol/L Anion Gap (3-11) BUN (6-23) mg/dl Creatinine (0.6-1.2) mg/dl Est Cr Clr Drug Dosing Est GFR ( Amer) ml/min Est GFR (Non-Af Amer) ml/min BUN/Creatinine Ratio (10-20) Glucose (70-99(Fasting)) mg/dl Lactate (0.4-2.0) mmol/L Calcium (8.6-10.3) mg/dl Magnesium (1.7-2.4) mg/dl Total Bilirubin (0.2-1.0) mg/dl Direct Bilirubin (0-0.2) mg/dl AST (13-39) U/L ALT (7-52) U/L Alkaline Phosphatase (34-104) U/L C-Reactive Protein (0-0.5) mg/dl B-Natriuretic Peptide 114 H (0-100) pg/ml Total Protein (6.0-8.3) gm/dl Albumin (3.4-5.0) gm/dl Globulin (2.5-4.0) gm/dl Albumin/Globulin Ratio (0.9-2) Procalcitonin 0.09 (0-0.5) ng/ml Hepatitis A IgM Ab (NON-REACTIVE) Hep Bs Antigen (NON-REACTIVE) Hep Bs Ag Confirmation Hep B Core IgM Ab (NON-REACTIVE) Hepatitis C Ab (EIA) (NON-REACTIVE) SARS-CoV-2, RNA, NAAT (NEGATIVE) Bld Cult ID Panel PCR PCR Panel Negative (NotDetected) 06/23/23 06/24/23 06/24/23 Range/Units 23:23 00:35 04:45 WBC 8.83 (4.8-10.8) K/ul RBC 3.86 L (4.20-5.40) M/uL Hgb 11.1 L (12.0-16.0) g/dl Hct 34.5 L (37.0-47.0) % MCV 89.4 (80.0-100.0) fL MCH 28.8 (25.0-34.0) pg MCHC 32.2 (32.0-36.0) g/dL RDW Std Deviation 45.9 (36.4-46.3) fL RDW Coeff of Benita 14.0 (11.5-14.5) % Plt Count 268 (130-400) K/uL MPV 8.7 L (9.4-12.4) fL Immature Gran % (Auto) % Neut % (Auto) % Lymph % (Auto) % Esmeralda % (Auto) % Eos % (Auto) % Baso % (Auto) % Neut # (Auto) (1.40-6.50) K/uL Lymph # (Auto) (1.2-3.4) K/uL Esmeralda # (Auto) (0.11-0.59) K/uL Eos # (Auto) (0-0.50) K/uL Baso # (Auto) (0-0.2) K/uL Immature Gran # (Auto) (0.01-0.20) K/uL Sodium (136-145) mmol/L Potassium (3.5-5.1) mmol/L Chloride (98-107) mmol/L Carbon Dioxide (21-32) mmol/L Anion Gap (3-11) BUN (6-23) mg/dl Creatinine (0.6-1.2) mg/dl Est Cr Clr Drug Dosing Est GFR ( Amer) ml/min Est GFR (Non-Af Amer) ml/min BUN/Creatinine Ratio (10-20) Glucose (70-99(Fasting)) mg/dl Lactate (0.4-2.0) mmol/L Calcium (8.6-10.3) mg/dl Magnesium (1.7-2.4) mg/dl Total Bilirubin (0.2-1.0) mg/dl Direct Bilirubin (0-0.2) mg/dl AST (13-39) U/L ALT (7-52) U/L Alkaline Phosphatase (34-104) U/L C-Reactive Protein 9.46 H (0-0.5) mg/dl B-Natriuretic Peptide (0-100) pg/ml Total Protein (6.0-8.3) gm/dl Albumin (3.4-5.0) gm/dl Globulin (2.5-4.0) gm/dl Albumin/Globulin Ratio (0.9-2) Procalcitonin (0-0.5) ng/ml Hepatitis A IgM Ab (NON-REACTIVE) Hep Bs Antigen (NON-REACTIVE) Hep Bs Ag Confirmation Hep B Core IgM Ab (NON-REACTIVE) Hepatitis C Ab (EIA) (NON-REACTIVE) SARS-CoV-2, RNA, NAAT NEGATIVE (NEGATIVE) Bld Cult ID Panel PCR (NotDetected) 06/24/23 06/24/23 Range/Units 04:45 04:45 WBC (4.8-10.8) K/ul RBC (4.20-5.40) M/uL Hgb (12.0-16.0) g/dl Hct (37.0-47.0) % MCV (80.0-100.0) fL MCH (25.0-34.0) pg MCHC (32.0-36.0) g/dL RDW Std Deviation (36.4-46.3) fL RDW Coeff of Benita (11.5-14.5) % Plt Count (130-400) K/uL MPV (9.4-12.4) fL Immature Gran % (Auto) % Neut % (Auto) % Lymph % (Auto) % Esmeralda % (Auto) % Eos % (Auto) % Baso % (Auto) % Neut # (Auto) (1.40-6.50) K/uL Lymph # (Auto) (1.2-3.4) K/uL Esmeralda # (Auto) (0.11-0.59) K/uL Eos # (Auto) (0-0.50) K/uL Baso # (Auto) (0-0.2) K/uL Immature Gran # (Auto) (0.01-0.20) K/uL Sodium 137 (136-145) mmol/L Potassium 4.0 (3.5-5.1) mmol/L Chloride 101 (98-107) mmol/L Carbon Dioxide 30 (21-32) mmol/L Anion Gap 6 (3-11) BUN 21 (6-23) mg/dl Creatinine 1.10 D (0.6-1.2) mg/dl Est Cr Clr Drug Dosing Not Reportable Est GFR ( Amer) 54.5 ml/min Est GFR (Non-Af Amer) 47.0 ml/min BUN/Creatinine Ratio 19.1 (10-20) Glucose 145 H (70-99(Fasting)) mg/dl Lactate (0.4-2.0) mmol/L Calcium 9.0 (8.6-10.3) mg/dl Magnesium 2.1 (1.7-2.4) mg/dl Total Bilirubin 1.5 H (0.2-1.0) mg/dl Direct Bilirubin 0.3 H (0-0.2) mg/dl AST 119 H (13-39) U/L ALT 126 H (7-52) U/L Alkaline Phosphatase 288 H (34-104) U/L C-Reactive Protein 12.19 H (0-0.5) mg/dl B-Natriuretic Peptide (0-100) pg/ml Total Protein 6.9 (6.0-8.3) gm/dl Albumin 3.6 (3.4-5.0) gm/dl Globulin 3.3 (2.5-4.0) gm/dl Albumin/Globulin Ratio 1.1 (0.9-2) Procalcitonin (0-0.5) ng/ml Hepatitis A IgM Ab NON-REACTIVE (NON-REACTIVE) Hep Bs Antigen NON-REACTIVE (NON-REACTIVE) Hep Bs Ag Confirmation TNP Hep B Core IgM Ab NON-REACTIVE (NON-REACTIVE) Hepatitis C Ab (EIA) NON-REACTIVE (NON-REACTIVE) SARS-CoV-2, RNA, NAAT (NEGATIVE) Bld Cult ID Panel PCR (NotDetected) Administered Medications Furosemide (Furosemide 40 Mg/4 Ml Vial) 40 mg IV DAILY MIKE Stop: 07/26/23 09:44 Last Admin: 06/26/23 10:24 Dose: 40 mg Documented By: CARISSA Heparin Sodium (Porcine) (Heparin Sod 5,000 Unit/0.5 Ml Vial) 5,000 units SQ Q12 MIKE Stop: 07/24/23 08:59 Last Admin: 06/26/23 20:42 Dose: 5,000 units Documented By: Admin: 06/26/23 10:23 Dose: 5,000 units Documented By: Admin: 06/25/23 21:05 Dose: 5,000 units Documented By: Admin: 06/25/23 08:49 Dose: 5,000 units Documented By: Admin: 06/24/23 20:57 Dose: 5,000 units Documented By: Admin: 06/24/23 09:23 Dose: Not Given Documented By: MADY Hydroxyzine HCl (Hydroxyzine Hcl 10 Mg Tab) 20 mg PO 2300 MIKE Stop: 07/24/23 22:59 Last Admin: 06/25/23 23:47 Dose: 20 mg Documented By: Admin: 06/24/23 23:33 Dose: 20 mg Documented By: CRISTY Daptomycin 200 mg/ Syringe 4 mls @ 2 mls/min IV Q2D MIKE; Protocol Stop: 07/03/23 05:59 Last Admin: 06/26/23 05:38 Dose: 2 mls/min Documented By: CRISTY Cefazolin Sodium (Ancef 1000mg) 1,000 mg in 7.5 mls @ 2.5 mls/min IV Q12H MIKE Stop: 07/01/23 07:59 Last Admin: 06/26/23 20:42 Dose: 2.5 mls/min Documented By: Admin: 06/26/23 10:23 Dose: 2.5 mls/min Documented By: Admin: 06/25/23 19:50 Dose: 2.5 mls/min Documented By: Admin: 06/25/23 08:53 Dose: 2.5 mls/min Documented By: Admin: 06/24/23 20:54 Dose: 2.5 mls/min Documented By: Admin: 06/24/23 08:21 Dose: 2.5 mls/min Documented By: MADY Methylprednisolone 40 mg/ (Syringe) 0.64 mls @ 1.5 mls/min IV Q6H MIKE Stop: 07/25/23 14:59 Last Admin: 06/26/23 20:44 Dose: 1.5 mls/min Documented By: Admin: 06/26/23 16:40 Dose: 1.5 mls/min Documented By: Admin: 06/26/23 10:22 Dose: 1.5 mls/min Documented By: Admin: 06/26/23 03:26 Dose: 1.5 mls/min Documented By: Admin: 06/25/23 21:05 Dose: 1.5 mls/min Documented By: Admin: 06/25/23 15:51 Dose: 1.5 mls/min Documented By: CARISSA Lamotrigine (Lamotrigine 100 Mg Tab) 200 mg PO HS MIKE Stop: 07/24/23 20:59 Last Admin: 06/26/23 20:44 Dose: 200 mg Documented By: Admin: 06/25/23 21:18 Dose: 200 mg Documented By: Admin: 06/24/23 20:58 Dose: 200 mg Documented By: CRISTY Levothyroxine Sodium (Levothyroxine Sodium 75 Mcg Tablet) 75 mcg PO DAILYBB MIKE Stop: 07/24/23 06:29 Last Admin: 06/26/23 05:38 Dose: 75 mcg Documented By: Admin: 06/25/23 05:35 Dose: 75 mcg Documented By: Admin: 06/24/23 07:41 Dose: 75 mcg Documented By: MADY Oxybutynin Chloride (Oxybutynin Chloride 5 Mg Tab) 2.5 mg PO BID MIKE Stop: 07/24/23 08:59 Last Admin: 06/26/23 20:44 Dose: 2.5 mg Documented By: Admin: 06/26/23 10:25 Dose: 2.5 mg Documented By: Admin: 06/25/23 21:19 Dose: 2.5 mg Documented By: Admin: 06/25/23 08:48 Dose: 2.5 mg Documented By: Admin: 06/24/23 20:58 Dose: 2.5 mg Documented By: Admin: 06/24/23 08:21 Dose: 2.5 mg Documented By: MADY Pantoprazole Sodium (Pantoprazole 40 Mg Tab) 40 mg PO QAM MIKE Stop: 07/24/23 08:59 Last Admin: 06/26/23 10:25 Dose: 40 mg Documented By: Admin: 06/25/23 08:49 Dose: 40 mg Documented By: Admin: 06/24/23 08:21 Dose: 40 mg Documented By: MADY Paroxetine HCl (Paroxetine Hcl 20 Mg Tab) 30 mg PO HS MIKE Stop: 07/24/23 20:59 Last Admin: 06/26/23 20:43 Dose: 30 mg Documented By: Admin: 06/25/23 21:18 Dose: 30 mg Documented By: Admin: 06/24/23 20:59 Dose: 30 mg Documented By: CRISTY Discontinued Medications Furosemide (Furosemide Inj 20 Mg/2 Ml Vial) 20 mg IV NOW STA Stop: 06/24/23 01:42 Last Admin: 06/24/23 03:07 Dose: 20 mg Documented By: ANGEL Furosemide (Furosemide 40 Mg/4 Ml Vial) 40 mg IV Q12 MIKE Stop: 07/24/23 08:59 Last Admin: 06/26/23 10:26 Dose: Not Given Documented By: Admin: 06/25/23 21:36 Dose: 40 mg Documented By: Admin: 06/25/23 08:49 Dose: 40 mg Documented By: Admin: 06/24/23 20:57 Dose: 40 mg Documented By: Admin: 06/24/23 09:22 Dose: 40 mg Documented By: MADY Heparin Sodium (Porcine) (Heparin Sod 5,000 Unit/0.5 Ml Vial) 5,000 units SQ Q8 MIKE Stop: 07/24/23 05:59 Last Admin: 06/24/23 07:41 Dose: 5,000 units Documented By: MADY Sodium Chloride (Nss 1000ml) 1,000 mls @ 100 mls/hr IV .Q10H MIKE Stop: 07/23/23 22:59 Last Infusion: 06/24/23 04:04 Dose: 0 mls/hr Documented By: Admin: 06/24/23 00:00 Dose: 100 mls/hr Documented By: TIMOJ Ceftriaxone Sodium 1,000 mg/ (Dextrose) 100 mls @ 100 mls/hr IV NOW STA Stop: 06/23/23 23:57 Last Infusion: 06/24/23 03:40 Dose: 0 mls/hr Documented By: Admin: 06/24/23 00:00 Dose: 100 mls/hr Documented By: KATHLEEN Daptomycin 200 mg/ Syringe 4 mls @ 2 mls/min IV ONE STA; Protocol Stop: 06/24/23 04:10 Last Admin: 06/24/23 04:38 Dose: 2 mls/min Documented By: MICHI Discharge Plan Visit Data Chief Complaint: Swelling/Edema to Extremity Stated Complaint: BILATERAL CELLULITIS ED Provider: Ludy Booker Discharge Problem: Cellulitis of left lower leg, Cellulitis of right lower leg Patient Disposition: Admitted As Inpatient Discharge Instructions Interventions: ED Discharge Assessment Last Done: 06/24/23 04:40
[2023-06-24] MEDS ORDERED: DAPTOmycin 200 MG in SYRINGE 0 ML IV STA (04:09)
[2023-06-24] MEDS ORDERED: ONDANSETRON INJ 2 MG/ML 2 ML VIAL IV PRN (04:39)
[2023-06-24] MEDS ORDERED: POLYETHYLENE (MIRALAX) 17 GM PACK PO PRN (04:39)
[2023-06-24] MEDS ORDERED: Patient's HEIGHT &/or WEIGHT Needed STA ×2 (04:39→06:22)
[2023-06-24] MEDS ORDERED: NYSTATIN POWDER 15GM BTL EXT PRN (04:39)
[2023-06-24] MEDS ORDERED: ACETAMINOPHEN 325 MG TAB PO PRN (04:39)
[2023-06-24] MEDS ORDERED: MELATONIN 3 MG TAB PO PRN (04:54)
[2023-06-24] MEDS ORDERED: SIMETHICONE 80 MG CHEW PO PRN (04:54)
[2023-06-24] MEDS ORDERED: ARTIFICIAL TEARS OP PRN (04:55)
--- NOTE | 2023-06-24 05:23 | Billing Data ---
Date of Service June 24, 2023 Coding Level of Care Code 03992 INT INP/OBS CARE
[2023-06-24 05:43] LABS: Alanine Aminotransferase 126 U/L (7-52); Albumin Globulin Ratio 1.1 (0.9-2); Albumin Level 3.6 gm/dl (3.4-5.0); Alkaline Phosphatase 288 U/L (34-104); Anion Gap 6 (3-11); Aspartate Aminotransferase 119 U/L (13-39); BUN Creatinine Ratio 19.1 (10-20); Bilirubin Direct 0.3 mg/dl (0-0.2); Bilirubin,Total 1.5 mg/dl (0.2-1.0); Blood Urea Nitrogen 21 mg/dl (6-23); C Reactive Protein 12.19 mg/dl (0-0.5); Carbon Dioxide 30 mmol/L (21-32); Chloride 101 mmol/L (98-107); Est GFR (African American) 54.5 ml/min; Globulin 3.3 gm/dl (2.5-4.0); Glucose 145 mg/dl (70-99(Fasting)); Magnesium 2.1 mg/dl (1.7-2.4); Sodium 137 mmol/L (136-145); Total Protein 6.9 gm/dl (6.0-8.3)
[2023-06-24] MEDS ORDERED: HEPARIN SOD 5,000 UNIT/0.5 ML VIAL SQ SCH (06:00)
--- NOTE | 2023-06-24 07:02 | Ultrasound Report ---
ULTRASOUND RIGHT UPPER QUADRANT ABDOMEN CLINICAL HISTORY: Elevated hepatic transaminases. COMPARISON STUDY: Abdominal CT dated 03/29/2021. TECHNIQUE: Real-time, grayscale, and color flow sonography of the right upper quadrant of the abdomen was performed. Images are reviewed in the transverse and longitudinal planes. FINDINGS: Liver: The liver is normal in size and echotexture. There is no intrahepatic biliary ductal dilatatio n. Fatty infiltration is seen adjacent to the falciform ligament. The main portal vein is patent. Gallbladder: There are shadowing calcified gallstones. There is no gallbladder wall thickening or per icholecystic fluid. A sonographic Minaya's sign could not be assessed as the patient received analges ia. The common bile duct measures up to 0.5 cm in diameter. Pancreas: Visualized portions of the pancreatic head and body are normal in appearance. The splenic v ein is patent. Right kidney: Survey images of the right kidney demonstrate mild cortical atrophy. Echotexture is nor mal. There is no hydronephrosis. Ascites: None. IMPRESSION: 1. The liver is normal in size and echotexture. 2. Cholelithiasis without sonographic evidence of acute cholecystitis. ACT 112: Negative or not required by law. Electronically signed by: Jono Duvall M.D. 06/24/2023 6:59 AM
[2023-06-24] MEDS: LEVOTHYROXINE SODIUM 75 MCG TABLET PO SCH (07:41)
[2023-06-24] MEDS ORDERED: ceFAZolin 1000MG 1,000 MG/7.5 ML SYR IV SCH (08:00)
--- NOTE | 2023-06-24 08:19 | XCELERA ---
[id number] [id number]
[2023-06-24] MEDS: oxyBUTYnin chloride 5 MG TAB PO SCH ×2 (08:21→20:58)
[2023-06-24] MEDS: ceFAZolin 1000MG 1,000 MG/7.5 ML SYR IV SCH ×2 (08:21→20:54)
[2023-06-24] MEDS: PANTOprazole 40 MG TAB PO SCH (08:21)
--- NOTE | 2023-06-24 08:34 | XRay Report ---
XR chest 1V portable HISTORY: Shortness of breath. New O2 requirement COMPARISON: Chest 03/28/2023. FINDINGS: No pneumothorax. The heart remains enlarged. There is mild interstitial thickening which is slightly progressed. This favors developing pulmonary edema. There are trace bilateral pleural effus ions. Right basilar linear densities favor subsegmental atelectasis. Slightly rotated study. Postoper ative changes again noted within the left humerus. IMPRESSION: Interval progression of the mild congestive change with trace bilateral pleural effusions. ACT 112: Negative or not required by law. Electronically signed by: Santos Hairston M.D. 06/24/2023 8:32 AM
[2023-06-24] MEDS ORDERED: FUROSEMIDE 20 MG TAB PO SCH (09:00)
[2023-06-24 09:08] LABS: Hematocrit (blood only) 34.5 % (37.0-47.0); Hemoglobin 11.1 g/dl (12.0-16.0); Mean Corpuscular Hemoglobin 28.8 pg (25.0-34.0); Mean Corpuscular Hgb Conc 32.2 g/dL (32.0-36.0); Mean Corpuscular Volume 89.4 fL (80.0-100.0); Mean Platelet Volume 8.7 fL (9.4-12.4); Platelet Count 268 K/uL (130-400); RDW Standard Deviation 45.9 fL (36.4-46.3); Red Blood Count 3.86 M/uL (4.20-5.40); White Blood Count 8.83 K/ul (4.8-10.8)
[2023-06-24] MEDS: FUROSEMIDE 40 MG/4 ML VIAL IV SCH ×2 (09:22→20:57)
[2023-06-24] MEDS: HEPARIN SOD 5,000 UNIT/0.5 ML VIAL SQ SCH ×2 (09:23→20:57)
--- NOTE | 2023-06-24 15:21 | Hospitalist Progress Note ---
Date of Service June 24, 2023 Assessment & Plan (1) Swelling of both lower extremities: Plan: Due to CHF and chronic venous insufficiency. May improved to an extent with Lasix diuresis. Leg elevation. Supportive care. (2) Acute on chronic diastolic CHF (congestive heart failure): Plan: Parenteral Lasix diuresis. Monitor intake and output. Repeat cardiac echo report noted. Serial CXR (3) Hypoxia: Plan: Acute hypoxic respiratory failure present on admission. Wean oxygen off as tolerated as CHF improves. (4) JOSEFINA (acute kidney injury): Plan: Monitor intake and output. Serial labs (5) Depression with anxiety: Plan: Stable. Continue current medical management (6) Hypothyroidism: Plan: Stable. Continue Synthroid replacement therapy (7) Elevated liver enzymes: Plan: Mild. Could possibly be from passive hepatic congestion related to CHF. We will follow Plan Hopeful discharge to previous living arrangements early next week Admission and Anticipated Discharge Date Admission Date: June 24, 2023 Subjective Alert and oriented. Pleasant. She appears to have exacerbation of her previously treated bilateral lower extremity cellulitis. She also has evidence of acute on chronic diastolic CHF. Repeat cardiac echo reveals normal ejection fraction with moderate LVH, moderate aortic valve stenosis, mild mitral stenosis with mild to moderate mitral regurgitation and left atrial enlargement. She is now on intravenous Lasix every 12 hours. Creatinine has improved to 1.1. She was recently discharged from the hospital on linezolid therapy Review of Systems Review of Systems: Constitutional-no fever or chills ENT-no blurred vision, no double vision, no epistaxis, no sore throat Respiratory-no cough, no wheezing. Shortness of breath with minimal exertion. Orthopnea Cardiac-no palpitations, no chest pain, no syncope GI-no nausea, vomiting, diarrhea, melena, hematochezia -no urinary retention, no urinary incontinence, no dysuria, no hematuria Musculoskeletal-she appears to have 1+ pitting edema bilateral lower extremities below the knees Skin-chronic stasis dermatitis bilateral lower extremities but now the erythema has worsened and appears more cellulitic Neuro-generalized weakness. No focal deficits Psych-no depression, no anxiety Physical Exam Physical Exam: General-alert and oriented x3, no fevers, no chills HEENT-head atraumatic and normocephalic, pupils equal and reactive to light, extraocular muscles intact Neck-no lymphadenopathy or thyromegaly, trachea midline Chest-bibasilar dullness and diminished breath sounds. Bibasilar inspiratory rales. No wheezing Cardiac-regular rate and rhythm, normal S1 and S2 Abdomen-normal bowel sounds, nontender, no hepatosplenomegaly Extremities-chronic edema bilateral lower extremities below the knees with what appears to be chronic venous stasis changes. Diffuse tenderness and erythema below the knees bilaterally consistent with cellulitis Neuro-cranial nerves II through XII intact, motor and sensory function within normal limits, strength symmetrical with generalized weakness , no focal d eficits Psych-normal affect, normal mood Results & Data Results & Data Vital Signs (Past 12 Hours) Vital Signs Temp Pulse Resp BP Pulse Ox O2 Del Method O2 Flow Rate 06/24/23 13:00 74 20 106/61 94 Room Air 06/24/23 12:55 Room Air 06/24/23 12:53 36.8 C 72 22 113/78 94 Nasal Cannula 4 06/24/23 10:15 81 18 123/52 L 97 Room Air 06/24/23 08:37 36.7 C 78 18 129/60 95 Room Air 06/24/23 03:41 80 20 148/95 H 99 Nasal Cannula 6 Laboratory Results 06/24/23 04:45 06/24/23 04:45 PG Care Time/CCT Total # of Minutes Spent Total Time Spent with Patient: Total time spent is greater than 50% in coordination of care (as documented) at patient's floor/unit and/or counseling patient: Coding Level of Care Code 64854 SUB INP/OBS CARE 3/50MIN Diagnoses Swelling of both lower extremities M79.89 Acute on chronic diastolic CHF (congestive heart failure) I50.33 Hypoxia R09.02 JOSEFINA (acute kidney injury) N17.9 Depression with anxiety F41.8 Hypothyroidism E03.9 Hypothyroidism type: acquired Elevated liver enzymes R74.8 (6) Hypothyroidism Hypothyroidism type: acquired Qualified Code(s): E03.9 - Hypothyroidism, unspecified
[2023-06-24] MEDS: lamoTRIgine 100 MG TAB PO SCH (20:58)
[2023-06-24] MEDS: PARoxetine HCL 20 MG TAB PO SCH (20:59)
[2023-06-24] MEDS: hydrOXYzine HCl 10 MG TAB PO SCH (23:33)
[2023-06-25 03:34] LABS: A calco-baum cmplx NotReported Not Detected (NotDetected); Bact fragilis Not Reported Not Detected (NotDetected); C auris Not Reported Not Detected (NotDetected); Calbicans Not Reported Not Detected (NotDetected); Candida glabrata Not Reported Not Detected (NotDetected); Candida krusei Not Reported Not Detected (NotDetected); Cneoformans/gatti Not Reported Not Detected (NotDetected); Cparapsilosis Not Reported Not Detected (NotDetected); Ctropicalis Not Reported Not Detected (NotDetected); E cloacae compx Not Reported Not Detected (NotDetected); Efaecalis Not Reported Not Detected (NotDetected); Efaecium Not Reported Not Detected (NotDetected); Enterobacterales Not Reported Not Detected (NotDetected); Escherichia coli Not Reported Not Detected (NotDetected); H influenzae Not Reported Not Detected (NotDetected); K aerogenes Not Reported Not Detected (NotDetected); Koxytoca Not Reported Not Detected (NotDetected); Kpneumoniae grp Not Reported Not Detected (NotDetected); Lmonocyt Not Reported Not Detected (NotDetected); N meningitidis Not Reported Not Detected (NotDetected); P aeruginosa Not Reported Not Detected (NotDetected); Proteus spp Not Reported Not Detected (NotDetected); Salmonella spp Not Reported Not Detected (NotDetected); Smarcescens Not Reported Not Detected (NotDetected); Staph lugdunensis Not Reported Not Detected (NotDetected); Staph spp. Not Reported Not Detected (NotDetected); Staphaureus Not Reported Not Detected (NotDetected); Staphepi Not Reported Not Detected (NotDetected); Stenmaltophilia Not Reported Not Detected (NotDetected); Strep agal(GrpB) Not Reported Not Detected (NotDetected); Strep pneum Not Reported Not Detected (NotDetected); Strep pyog (GrpA) Not Reported Not Detected (NotDetected); Strep spp Not Reported Not Detected (NotDetected)
[2023-06-25] MEDS: LEVOTHYROXINE SODIUM 75 MCG TABLET PO SCH (05:35)
[2023-06-25 08:25] LABS: Basophils # (auto) 0.04 K/uL (0-0.2); Basophils % (auto) 0.7 %; Eosinophils # (auto) 0.23 K/uL (0-0.50); Eosinophils % (auto) 3.9 %; Immature Granulocytes # (auto) 0.02 K/uL (0.01-0.20); Immature Granulocytes % (auto) 0.3 %; Lymphocytes # (auto) 1.66 K/uL (1.2-3.4); Mean Corpuscular Hemoglobin 28.9 pg (25.0-34.0); Mean Corpuscular Hgb Conc 33.3 g/dL (32.0-36.0); Mean Corpuscular Volume 86.8 fL (80.0-100.0); Mean Platelet Volume 8.7 fL (9.4-12.4); Monocytes # (auto) 0.78 K/uL (0.11-0.59); Monocytes % (auto) 13.2 %; Neutrophils # (auto) 3.19 K/uL (1.40-6.50); Neutrophils % (auto) 53.9 %; Platelet Count 248 K/uL (130-400); RDW Coefficient of Variation 13.6 % (11.5-14.5); RDW Standard Deviation 43.1 fL (36.4-46.3); White Blood Count 5.92 K/ul (4.8-10.8)
[2023-06-25 08:43] LABS: BUN Creatinine Ratio 21.8 (10-20); Calcium 8.9 mg/dl (8.6-10.3); Creatinine Clr Calc Pharmacy 31.7 ml/min; Est GFR (African American) 47.2 ml/min; Est GFR (Non-African American) 40.7 ml/min; Potassium 3.7 mmol/L (3.5-5.1)
[2023-06-25] MEDS: oxyBUTYnin chloride 5 MG TAB PO SCH ×2 (08:48→21:19)
[2023-06-25] MEDS: HEPARIN SOD 5,000 UNIT/0.5 ML VIAL SQ SCH ×2 (08:49→21:05)
[2023-06-25] MEDS: PANTOprazole 40 MG TAB PO SCH (08:49)
[2023-06-25] MEDS: FUROSEMIDE 40 MG/4 ML VIAL IV SCH ×2 (08:49→21:36)
[2023-06-25] MEDS: ceFAZolin 1000MG 1,000 MG/7.5 ML SYR IV SCH ×2 (08:53→19:50)
[2023-06-25 10:52] LABS: HBSAG NON-REACTIVE (NON-REACTIVE); Hepatitis A Antibody IgM NON-REACTIVE (NON-REACTIVE); Hepatitis B Core Antibody IgM NON-REACTIVE (NON-REACTIVE)
--- NOTE | 2023-06-25 14:47 | Hospitalist Progress Note ---
Date of Service June 25, 2023 Assessment & Plan (1) Swelling of both lower extremities: Plan: Due to CHF and chronic venous insufficiency. May improved to an extent with Lasix diuresis. Leg elevation. Supportive care. (2) Acute on chronic diastolic CHF (congestive heart failure): Plan: Improving with parenteral Lasix diuresis. Monitor intake and output. Repeat cardiac echo report noted. Repeat chest x-ray tomorrow, June 26 (3) Hypoxia: Plan: Acute hypoxic respiratory failure present on admission. Oxygen has been weaned off. She is now on room air (4) JOSEFINA (acute kidney injury): Plan: Monitor intake and output. Serial labs. Improved (5) Right knee pain: Plan: Appears to be arthritic in nature. No injury. No effusion or erythema. Parenteral steroid therapy ordered (6) Depression with anxiety: Plan: Stable. Continue current medical management (7) Hypothyroidism: Plan: Stable. Continue Synthroid replacement therapy (8) Elevated liver enzymes: Plan: Mild. Could possibly be from passive hepatic congestion related to CHF. We will follow Plan Hopeful discharge to previous living arrangements early next week Admission and Anticipated Discharge Date Admission Date: June 24, 2023 Subjective Alert and oriented. She has developed right knee pain which appears to be arthritic in nature. No injury. No swelling or erythema. Parenteral steroid therapy should improve this quickly. Brisk diuretic response with parenteral Lasix. She is on room air. Will repeat portable chest x-ray tomorrow, June 26. She remains on intravenous Ancef and daptomycin for the bilateral lower ex tremity cellulitis. Review of Systems Review of Systems: Constitutional-no fever or chills ENT-no blurred vision, no double vision, no epistaxis, no sore throat Respiratory-no cough, no wheezing. Shortness of breath with minimal exertion. Orthopnea Cardiac-no palpitations, no chest pain, no syncope GI-no nausea, vomiting, diarrhea, melena, hematochezia -no urinary retention, no urinary incontinence, no dysuria, no hematuria Musculoskeletal-she appears to have 1+ pitting edema bilateral lower extremities below the knees. The right knee is negative for effusion or erythema. She does have tenderness to palpation over the patella Skin-chronic stasis dermatitis bilateral lower extremities but now the erythema has worsened and appears more cellulitic Neuro-generalized weakness. No focal deficits Psych-no depression, no anxiety Physical Exam Physical Exam: General-alert and oriented x3, no fevers, no chills HEENT-head atraumatic and normocephalic, pupils equal and reactive to light, extraocular muscles intact Neck-no lymphadenopathy or thyromegaly, trachea midline Chest-bibasilar dullness and diminished breath sounds. Bibasilar inspiratory rales. No wheezing Cardiac-regular rate and rhythm, normal S1 and S2 Abdomen-normal bowel sounds, nontender, no hepatosplenomegaly Extremities-chronic edema bilateral lower extremities below the knees with what appears to be chronic venous stasis changes. Diffuse tenderness and erythema below the knees bilaterally consistent with cellulitis Neuro-cranial nerves II through XII intact, motor and sensory function within normal limits, strength symmetrical with generalized weakness , no focal deficits Psych-normal affect, normal mood Results & Data Results & Data Vital Signs (Past 12 Hours) Vital Signs Temp Pulse Resp BP Pulse Ox O2 Del Method 06/25/23 14:03 36.8 C 74 16 109/62 96 Room Air 06/25/23 07:00 36.7 C 77 15 123/67 98 Room Air Laboratory Results 06/25/23 08:05 06/25/23 08:05 PG Care Time/CCT Total # of Minutes Spent Total Time Spent with Patient: Total time spent is greater than 50% in coordination of care (as documented) at patient's floor/unit and/or counseling patient: Coding Level of Care Code 27203 SUB INP/OBS CARE 3/50MIN Diagnoses Swelling of both lower extremities M79.89 Acute on chronic diastolic CHF (congestive heart failure) I50.33 Hypoxia R09.02 JOSEFINA (acute kidney injury) N17.9 Right knee pain M25.561 Depression with anxiety F41.8 Hypothyroidism E03.9 Hypothyroidism type: acquired Elevated liver enzymes R74.8 (7) Hypothyroidism Hypothyroidism type: acquired Qualified Code(s): E03.9 - Hypothyroidism, unspecified
[2023-06-25] MEDS: methylPREDNISolone 40 MG in SYRINGE 0 ML IV SCH ×2 (15:51→21:05)
[2023-06-25] MEDS: lamoTRIgine 100 MG TAB PO SCH (21:18)
[2023-06-25] MEDS: PARoxetine HCL 20 MG TAB PO SCH (21:18)
[2023-06-25] MEDS: hydrOXYzine HCl 10 MG TAB PO SCH (23:47)
[2023-06-26] MEDS: methylPREDNISolone 40 MG in SYRINGE 0 ML IV SCH ×4 (03:26→20:44)
[2023-06-26] MEDS: LEVOTHYROXINE SODIUM 75 MCG TABLET PO SCH (05:38)
[2023-06-26] MEDS ORDERED: DAPTOmycin 200 MG in SYRINGE 0 ML IV SCH (06:00)
[2023-06-26 07:00] LABS: Hematocrit (blood only) 35.6 % (37.0-47.0); Hemoglobin 11.9 g/dl (12.0-16.0); Immature Granulocytes # (auto) 0.02 K/uL (0.01-0.20); Immature Granulocytes % (auto) 0.3 %; Lymphocytes # (auto) 0.61 K/uL (1.2-3.4); Lymphocytes % (auto) 8.7 %; Mean Corpuscular Hemoglobin 28.7 pg (25.0-34.0); Mean Corpuscular Hgb Conc 33.4 g/dL (32.0-36.0); Mean Platelet Volume 8.7 fL (9.4-12.4); Monocytes # (auto) 0.09 K/uL (0.11-0.59); Monocytes % (auto) 1.3 %; Neutrophils # (auto) 6.27 K/uL (1.40-6.50); Neutrophils % (auto) 89.7 %; Platelet Count 319 K/uL (130-400); RDW Coefficient of Variation 13.6 % (11.5-14.5); Red Blood Count 4.14 M/uL (4.20-5.40); White Blood Count 6.99 K/ul (4.8-10.8)
[2023-06-26 07:12] LABS: BUN Creatinine Ratio 32.3 (10-20); Calcium 9.7 mg/dl (8.6-10.3); Creatinine Clr Calc Pharmacy 30.1 ml/min; Est GFR (African American) 44.6 ml/min; Est GFR (Non-African American) 38.4 ml/min; Potassium 3.8 mmol/L (3.5-5.1)
--- NOTE | 2023-06-26 08:06 | XRay Report ---
XR chest 1V portable HISTORY: Congestive heart failure. Shortness of breath. COMPARISON: Chest 06/24/2023. FINDINGS: No pneumothorax. Postoperative changes again noted within the left humerus. No new focal gianna ng consolidations to suggest a pneumonia. The heart is mildly enlarged. This has improved. The inters titial pulmonary edema and trace pleural effusions have essentially resolved in the interval. Small r etrocardiac density favors a hiatus hernia. No new focal lung consolidations to suggest a pneumonia. IMPRESSION: The interstitial pulmonary edema and trace bilateral pleural effusions have essentially resolved in t he interval. ACT 112: Negative or not required by law. Electronically signed by: Santos Hairston M.D. 06/26/2023 8:05 AM
[2023-06-26] MEDS: ceFAZolin 1000MG 1,000 MG/7.5 ML SYR IV SCH ×2 (10:23→20:42)
[2023-06-26] MEDS: HEPARIN SOD 5,000 UNIT/0.5 ML VIAL SQ SCH ×2 (10:23→20:42)
[2023-06-26] MEDS: FUROSEMIDE 40 MG/4 ML VIAL IV SCH ×2 (10:24→10:26)
[2023-06-26] MEDS: oxyBUTYnin chloride 5 MG TAB PO SCH ×2 (10:25→20:44)
[2023-06-26] MEDS: PANTOprazole 40 MG TAB PO SCH (10:25)
--- NOTE | 2023-06-26 12:33 | Hospitalist Progress Note ---
Date of Service June 26, 2023 Assessment & Plan (1) Swelling of both lower extremities: Plan: Due to CHF and chronic venous insufficiency. Marked improvement with Lasix diuresis. Leg elevation. Supportive care. (2) Acute on chronic diastolic CHF (congestive heart failure): Plan: Much improved with parenteral Lasix diuresis. Lasix frequency decreased to daily dosing today, June 26 monitor intake and output. Repeat cardiac echo report noted. Chest x-ray looks better. (3) Hypoxia: Plan: Acute hypoxic respiratory failure present on admission. Resolved. Oxygen has been weaned off. She is now on room air (4) JSOEFINA (acute kidney injury): Plan: Monitor intake and output. Serial labs. Improved (5) Right knee pain: Plan: Appears to be arthritic in nature. No injury. No effusion or erythema. Parenteral steroid therapy ordered. X-ray today, June 26 (6) Depression with anxiety: Plan: Stable. Continue current medical management (7) Hypothyroidism: Plan: Stable. Continue Synthroid replacement therapy (8) Elevated liver enzymes: Plan: Mild. Could possibly be from passive hepatic congestion related to CHF. We will follow Plan Hopeful discharge to previous living arrangements this week Admission and Anticipated Discharge Date Admission Date: June 24, 2023 Subjective Alert and oriented. She continues to diurese well with Lasix every 12 hours which has been tapered down to once daily dosing. She is on room air. Chest x- ray looks better. She remains on Ancef and daptomycin for the resolving bilateral lower extremity cellulitis. Her right knee continues to cause discomfort and will be x-rayed today. No trauma. Solu-Medrol was started yesterday, June 25 Review of Systems Review of Systems: Constitutional-no fever or chills ENT-no blurred vision, no double vision, no epistaxis, no sore throat Respiratory-no cough, no wheezing. Shortness of breath with minimal exertion. Orthopnea Cardiac-no palpitations, no chest pain, no syncope GI-no nausea, vomiting, diarrhea, melena, hematochezia -no urinary retention, no urinary incontinence, no dysuria, no hematuria Musculoskeletal-she appears to have 1+ pitting edema bilateral lower extremities below the knees. The right knee is negative for effusion or erythema. She does have tenderness to palpation over the patella Skin-chronic stasis dermatitis bilateral lower extremities but now the erythema has worsened and appears more cellulitic Neuro-generalized weakness. No focal deficits Psych-no depression, no anxiety Physical Exam Physical Exam: General-alert and oriented x3, no fevers, no chills HEENT-head atraumatic and normocephalic, pupils equal and reactive to light, extraocular muscles intact Neck-no lymphadenopathy or thyromegaly, trachea midline Chest-bibasilar dullness and diminished breath sounds. Bibasilar inspiratory rales. No wheezing Cardiac-regular rate and rhythm, normal S1 and S2 Abdomen-normal bowel sounds, nontender, no hepatosplenomegaly Extremities-chronic edema bilateral lower extremities below the knees with what appears to be chronic venous stasis changes. Diffuse tenderness and erythema below the knees bilaterally consistent with cellulitis Neuro-cranial nerves II through XII intact, motor and sensory function within normal limits, strength symmetrical with generalized weakness , no focal deficits Psych-normal affect, normal mood Results & Data Results & Data Vital Signs (Past 12 Hours) Vital Signs Temp Pulse Resp BP Pulse Ox O2 Del Method 06/26/23 07:26 36.6 C 95 H 18 130/74 94 Room Air Laboratory Results 06/26/23 06:31 06/26/23 06:31 PG Care Time/CCT Total # of Minutes Spent Total Time Spent with Patient: Total time spent is greater than 50% in coordination of care (as documented) at patient's floor/unit and/or counseling patient: Coding Level of Care Code 71850 SUB INP/OBS CARE 3/50MIN Diagnoses Swelling of both lower extremities M79.89 Acute on chronic diastolic CHF (congestive heart failure) I50.33 Hypoxia R09.02 JOSEFINA (acute kidney injury) N17.9 Right knee pain M25.561 Depression with anxiety F41.8 Hypothyroidism E03.9 Hypothyroidism type: acquired Elevated liver enzymes R74.8 (7) Hypothyroidism Hypothyroidism type: acquired Qualified Code(s): E03.9 - Hypothyroidism, unspecified
--- NOTE | 2023-06-26 13:59 | XRay Report ---
XR knee RT 1 or 2V routine CLINICAL HISTORY: Right knee pain. COMPARISON STUDY: Right knee 09/11/2008. FINDINGS: No fracture or dislocation within the right knee. Mild vascular calcifications are noted. N o significant knee effusion. No soft tissue swelling. No radiopaque foreign bodies. Mild tricompartme ntal osteoarthritis, unchanged. IMPRESSION: No fractures within the right knee. ACT 112: Negative or not required by law. Electronically signed by: Santos Hairston M.D. 06/26/2023 1:57 PM
[2023-06-26] MEDS: PARoxetine HCL 20 MG TAB PO SCH (20:43)
[2023-06-26] MEDS: lamoTRIgine 100 MG TAB PO SCH (20:44)
[2023-06-26] MEDS: hydrOXYzine HCl 10 MG TAB PO SCH (22:53)
[2023-06-27] MEDS: methylPREDNISolone 40 MG in SYRINGE 0 ML IV SCH ×2 (03:24→08:48)
[2023-06-27] MEDS: LEVOTHYROXINE SODIUM 75 MCG TABLET PO SCH (06:15)
[2023-06-27] MEDS: PANTOprazole 40 MG TAB PO SCH (06:17)
[2023-06-27 06:23] LABS: Basophils # (auto) 0.01 K/uL (0-0.2); Basophils % (auto) 0.1 %; Hematocrit (blood only) 34.4 % (37.0-47.0); Hemoglobin 11.6 g/dl (12.0-16.0); Immature Granulocytes # (auto) 0.08 K/uL (0.01-0.20); Immature Granulocytes % (auto) 0.6 %; Lymphocytes # (auto) 1.14 K/uL (1.2-3.4); Lymphocytes % (auto) 9.1 %; Mean Corpuscular Hemoglobin 29.2 pg (25.0-34.0); Mean Corpuscular Hgb Conc 33.7 g/dL (32.0-36.0); Mean Corpuscular Volume 86.6 fL (80.0-100.0); Mean Platelet Volume 8.8 fL (9.4-12.4); Monocytes # (auto) 0.46 K/uL (0.11-0.59); Monocytes % (auto) 3.7 %; Neutrophils # (auto) 10.82 K/uL (1.40-6.50); Neutrophils % (auto) 86.5 %; Platelet Count 356 K/uL (130-400); RDW Coefficient of Variation 13.6 % (11.5-14.5); RDW Standard Deviation 43.7 fL (36.4-46.3); Red Blood Count 3.97 M/uL (4.20-5.40); White Blood Count 12.51 K/ul (4.8-10.8)
[2023-06-27 06:49] LABS: BUN Creatinine Ratio 39.6 (10-20); Calcium 9.6 mg/dl (8.6-10.3); Creatinine Clr Calc Pharmacy 24.6 ml/min; Est GFR (African American) 34.9 ml/min; Est GFR (Non-African American) 30.1 ml/min
[2023-06-27] MEDS: FUROSEMIDE 40 MG/4 ML VIAL IV SCH (08:47)
[2023-06-27] MEDS: ceFAZolin 1000MG 1,000 MG/7.5 ML SYR IV SCH (08:47)
[2023-06-27] MEDS: HEPARIN SOD 5,000 UNIT/0.5 ML VIAL SQ SCH (08:48)
[2023-06-27] MEDS: oxyBUTYnin chloride 5 MG TAB PO SCH (08:48)
--- NOTE | 2023-06-27 11:16 | Discharge Summary ---
Date of Service June 27, 2023 Admission HPI Per Admitting Provider Patient is an 82-year-old female with a past medical history of anxiety, hypothyroidism, paroxysmal atrial fibrillation who presents to the hospital for evaluation of bilateral lower extremity erythema and swelling. Patient was sent by her living facility, at [facility], due to concern for her lower extremities becoming red, hot to the touch, and swollen bilaterally. Patient reports that she has been feeling generally unwell for the past day or so complaining of chills, shakes, and subjectively feeling warm. She has been admitted for bilateral cellulitis before with the most recent admission being on 03/29/2023. At that time she was diagnosed with bilateral lower extremity cellulitis and was treated with Rocephin and vancomycin x3 days inpatient and was discharged with linezolid. This seemed to resolve her issues with her lower extremities. She returns with essentially the same symptoms. Denies hitting her legs off of any object or causing any open wounds. Denies history of congestive heart failure. Denies nausea and vomiting. No recorded fevers at home. No diarrhea or constipation. ED course: Patient brought back and evaluated by provider. Labs are significant for white count of 12.8, hemoglobin 11.4, BUN of 27, creatinine of 1.54 with a baseline of 0.85. Total bilirubin at 1.2, AST of 1.4, ALT at 118, alkaline phosphatase at 331, CRP at 9.46 negative procalcitonin. Patient is COVID-ne gative. Chest x-ray obtained and does show curly B-lines and vascular congestion with edema per my interpretation. Patient was given a 1 g dose of Rocephin. The hospitalist service was consulted for admission. Principal Diagnosis stasis dermatitis, CHF exacerbation Discharge Exam The patient is awake, alert and oriented 3, well developed and well nourished, normocephalic and atraumatic, lying in bed and in no acute distress. HEENT--PERRL, EOMI, mucous membranes and oropharynx mildly dry Neck--supple. No JVD. No bruits. Thyroid normal, trachea midline, no adenopathy. Heart--normal S1 and S2. No murmurs, rubs or gallops. Lungs--clear bilaterally, no respiratory distress, no accessory muscle use. Abdomen--normal bowel sounds and soft. Mild epigastric and left sided abdominal pain Extremities--no cyanosis or clubbing. No edema. Dermatologic--bilateral lower extremity redness. Neurologic--cranial nerves II through XII grossly intact. Rheumatologic--normal range of motion. Psychiatric--normal affect. Discharge Data Allergies Allergy/AdvReac Type Severity Reaction Status Date / Time No Known Allergies Allergy Verified 06/08/23 14:49 Consultations 06/24/23 00:59 ED Decision to Admit Stat Ordered Studies 06/24/23 02:19 US RUQ [US liver] Routine Hospital Course (1) Swelling of both lower extremities: Due to CHF and chronic venous insufficiency/ stasis dermatitis. Marked improvement with Lasix diuresis. Leg elevation. Supportive care. Elevated WBC could be due to steriods she received, however, will give her a few days of keflex PO in case there is some underlying cellulitis (although unlikely) (2) Acute on chronic diastolic CHF (congestive heart failure): Much improved with parenteral Lasix diuresis. Lasix frequency decreased to daily dosing today, June 26 monitor intake and output. Repeat cardiac echo report noted. Chest x-ray looks better. (3) Hypoxia: Acute hypoxic respiratory failure present on admission. Resolved. Oxygen has been weaned off. She is now on room air (4) JOSEFINA (acute kidney injury): Monitor intake and output. Serial labs. Improved (5) Right knee pain: Appears to be arthritic in nature. No injury. No effusion or erythema. Parenteral steroid therapy ordered. X-ray today, June 26 (6) Depression with anxiety: Stable. Continue current medical management (7) Hypothyroidism: Stable. Continue Synthroid replacement therapy (8) Elevated liver enzymes: Mild. Could possibly be from passive hepatic congestion related to CHF. We will follow Plan d/c home Total Time Total Time Spent Total Time Spent (In Minutes): 35 Discharge Plan Discharge Items Patient Disposition: Personal Intermediate Reason For Visit: LE EDEMA Discharge Diagnosis: stasis dermatitis Activity: Resume your previous activity Non-emergency contact: Primary Care Provider Call non-emergency contact if: you have any medication questions Follow-up/Referrals: CLAYTON, [Primary Care Provider] - ([facility]) Diet: Heart Healthy Addtl Attending Provider Instructions: please follow up with your regular PCP Pending Studies at Discharge: No Stand-Alone Forms: My [employer], Smoking Cessation Skilled Items Patient informed of condition?: Yes DNR: No Discharge Level of Care: Other Communicable Disease: No Discharge Prognosis: Stable Lines: None Urinary Catheter: No Medications and DC Order Prescriptions: New cephalexin 500 mg capsule 500 mg PO BID 7 Days Qty: 14 0RF Continued oxybutynin chloride 5 mg tablet 2.5 mg PO BID furosemide 20 mg tablet 20 mg PO DAILY levothyroxine 75 mcg tablet 75 mcg PO DAILYBB omeprazole 20 mg capsule,delayed release(DR/EC) 20 mg PO QAM lamotrigine 200 mg tablet 200 mg PO HS simethicone 125 mg Tablet,Chewable 125 mg PO QID PRN (Reason: GAS DISCOMFORT) nystatin 100,000 unit/gram Powder 1 applic TOPICAL BID PRN (Reason: excoriation) Rx Instructions: under bilateral breast hydroxyzine HCl 10 mg Tablet 20 mg PO .DAILY AT 11 PM hydroxyzine HCl 10 mg Tablet 10 mg PO BID PRN (Reason: Anxiety) Rx Instructions: take at 11am & 5pm Systane Gel 0.4-0.3 % Drops,Gel 1 drp OPHTHALMIC (EYE) 6XD PRN (Reason: Dry Eyes) melatonin 10 mg Tablet 10 mg PO HS PRN (Reason: Sleep) omega 5-mue-mhg-fish oil [Fish Oil] 1,200 (144-216) mg Capsule 1 cap PO QAM multivitamin [Daily-Priscila] Tablet 1 tab PO DAILY calcium carbonate-vitamin D3 [Calcium 600 + D(3)] 600 mg-10 mcg (400 unit) Tablet 1 tab PO DAILY paroxetine HCl [Paxil] 30 mg Tablet 30 mg PO HS hydroxyzine HCl 10 mg tablet 10 - 20 mg PO UD Rx Instructions: take 1-2 tablets by mouth as needed for anxiety acetaminophen [Tylenol 8 Hour] 650 mg Tablet Extended Release 650 mg PO TID PRN (Reason: Pain) calcium carbonate [Tums Ultra] 400 mg calcium (1,000 mg) Tablet,Chewable 400 mg PO QID PRN (Reason: Indigestion) PreserVision AREDS-2 250-90-40-1 mg Capsule 1 tab PO BID Discharge Orders: Discharge Order (Routine); Ordered 06/27/23 Ordered By: Ramon Haywood Admission Data Admit Date/Time: 06/24/23 08:02 Attending Provider: Ramon Haywood Admit Provider: Spike Lara Primary Care Provider: Henok ARNOLD Providers: Shama Ruano Coding Level of Care Code 14128 INP/OBS DISCH >30 MIN Diagnoses Swelling of both lower extremities M79.89 Acute on chronic diastolic CHF (congestive heart failure) I50.33 Hypoxia R09.02 JOSEFINA (acute kidney injury) N17.9 Right knee pain M25.561 Depression with anxiety F41.8 Hypothyroidism E03.9 Hypothyroidism type: acquired Elevated liver enzymes R74.8 Time Spent (min) 35
== END 2023-06-27 14:45 | disposition home health service (06) | DRG 299 ==
LOC: EDINP 17:07 → ED 17:07 → SUATTDRO 06-24 02:18 → 3W 06-24 04:40 → SUATTDRO 06-24 08:02 → 3W 06-24 19:21

== ENCOUNTER 2023-06-29 12:48 | Inpatient (IN) ==
[2023-06-29 13:43] LABS: Basophils # (auto) 0.03 K/uL (0-0.2); Basophils % (auto) 0.2 %; Eosinophils # (auto) 0.08 K/uL (0-0.50); Eosinophils % (auto) 0.5 %; Hematocrit (blood only) 34.2 % (37.0-47.0); Hemoglobin 11.1 g/dl (12.0-16.0); Immature Granulocytes # (auto) 0.13 K/uL (0.01-0.20); Immature Granulocytes % (auto) 0.8 %; Lymphocytes # (auto) 1.45 K/uL (1.2-3.4); Lymphocytes % (auto) 8.6 %; Mean Corpuscular Hemoglobin 29.1 pg (25.0-34.0); Mean Corpuscular Hgb Conc 32.5 g/dL (32.0-36.0); Mean Corpuscular Volume 89.5 fL (80.0-100.0); Mean Platelet Volume 8.8 fL (9.4-12.4); Monocytes # (auto) 1.24 K/uL (0.11-0.59); Monocytes % (auto) 7.4 %; Neutrophils # (auto) 13.91 K/uL (1.40-6.50); Neutrophils % (auto) 82.5 %; Platelet Count 337 K/uL (130-400); Red Blood Count 3.82 M/uL (4.20-5.40); White Blood Count 16.84 K/ul (4.8-10.8)
--- NOTE | 2023-06-29 13:47 | Emergency Department Note ---
Impression & Plan SIRS (systemic inflammatory response syndrome), Bilateral lower leg cellulitis, Leukocytosis, Elevated erythrocyte sedimentation rate, CRP elevated, Transaminitis ED Provider Note NAME: JAMES AMOS AGE: 82 SEX: F ARRIVES VIA: Ambulance INFORMANT: Patient ED PROVIDER(S): Kunal Johnson MD CHIEF COMPLAINT: Fever, cellulitis. PLAN: Disposition: Admit MEDICAL DECISION MAKING: The patient is a pleasant 82-year-old woman with a past medical history of an xiety, hypothyroidism, paroxysmal atrial fibrillation not on anticoagulation who presents emergency department from her assisted living facility at [facility] for progression and worsening of bilateral lower extremity cellulitis after being admitted to this facility from 06/24-06/27 for the same where it was suspected that symptoms may have been more related to CHF but was discharged on Keflex. The patient has had fevers. She denies any nausea, vomiting, diarrhea or urinary symptoms. The patient was given 1000 mg of Tylenol orally by EMS prior to arrival. On arrival the patient is no acute distress, afebrile stable vital signs. She has mild edema bilateral extremities with some asymmetry with increased edema of the right lower extremity with both lower legs appearing red warm and tender to touch. EKG without overt acute ischemia. CXR negative for acute cardiopulmonary process. RLE US negative for DVT. WBC 16.8K increased from 2 days ago with neutrophil predominance though no left shift. H/H similar to prior. Platelets within normal limits. Chemistry without metabolic acidosis. Lactic acid 1.1, within normal limits. Electrolytes unremarkable. LFTs remain elevated but similar to her recent admission with total bili 1.6, direct bilirubin 0.5 and AST and ALT 132 and 103, respectively. Alk phos is 379. Of note, the patient did have an unremarkable liver ultrasound on her recent admission. High- sensitivity troponin 13.9, within normal limits. ESR and CRP are elevated at 55 and 12.8, respectively. Procalcitonin is not elevated. Of note, review of the patient's recent CBC with differential demonstrates that the patient did have a mild lymphopenia initially. Given this in the setting of new transaminitis out of completeness tickborne illness testing performed including Lyme, Anaplasma, Babesia, and Rickettsia and are pending. Blood cultures drawn and pending. Of note, the patient did have blood cultures on her last admission that was positive in 1 set for micrococcus species though no sensitivities were to follow. Possibly considered contamination at that time. The patient was treated empirically with IV cefepime and daptomycin given continued fever and recurrence of cellulitis. IV fluid hydration deferred given and previously for component of hypervolemia though the patient does not appear overloaded today her weight has returned to her admission weight from last week. The patient is in agreement with plan for admission. Case was discussed [place] Salgu[place], [facility] [place], who will evaluate the patient for admission. Further management per admitting team. Triage Nursing notes reviewed and agree them. Prior/outside medical records reviewed Vital Signs: reviewed Differential diagnosis: Cellulitis, abscess, MRSA infection, DVT, necrotizing fasciitis, dermatitis, drug eruption, allergic reaction, as well as other pathologies. ER treatment provided: See below. Diagnostics interpreted by me: ECG: Normal sinus rhythm, 80 bpm, no ectopy, no overt ST elevation or depression, QTc 435, QRS 76 Cardiac Monitoring: An order for continuous cardiac monitoring was placed and demonstrated Normal sinus rhythm, 80 bpm, no ectopy Laboratory studies: See below Imaging studies: See below Consultation(s): Case was discussed with Dr. Salguero, [facility] [place], who will evaluate the patient for admission. HPI: The patient is a pleasant 82-year-old woman with a past medical history of anxiety, hypothyroidism, paroxysmal atrial fibrillation not on anticoagulation who presents emergency department from her assisted living facility at [facility] for progression and worsening of bilateral lower extremity cellulitis after being admitted to this facility from 06/24-06/27 for the same where it was suspected that symptoms may have been more related to CHF but was discharged on Keflex. The patient has had fevers. She denies any nausea, vomiting, diarrhea or urinary symptoms. ROS: See above HPI for pertinent positives & negatives. A total of 10 systems reviewed and were otherwise negative. VITALS:See Below PHYSICAL EXAMINATION: GENERAL: Awake, alert, fatigued-appearing, in no distress HENT: Normocephalic, atraumatic. Oropharynx unremarkable. EYES: Normal conjunctiva. Sclera non-icteric. NECK: Supple. No nuchal rigidity. FROM. No JVD. RESPIRATORY: Clear to auscultation. CARDIAC: Regular rate, normal rhythm. Extremities warm and well perfused. Pulses equal. 3/6 systolic murmur. ABDOMEN: Soft, non-distended. No tenderness to palpation. No rebound or guarding. No masses. RECTAL: Deferred. MUSCULOSKELETAL: Chest examination reveals no tenderness. The back is symmetrical on inspection without obvious abnormality. There is no CVA tenderness to palpation. No joint edema. LOWER EXTREMITIES: Mild edema bilateral extremities with some asymmetry with increased edema of the right lower extremity with both lower legs appearing red warm and tender to touch. NEURO: Normal sensorium. No sensory or motor deficits noted. SKIN: No rash or jaundice noted. Kunal Johnson MD Past Med/Surg History Medical History Anxiety Aortic stenosis Cellulitis Degenerative arthritis Depression with anxiety Heart murmur Patient will be scheduled for an echocardiogram she is no recollection of being told that she had a heart murmur Hypothyroidism Paroxysmal atrial fibrillation with RVR Postherpetic neuralgia Rib fracture Weakness Surgical History S/P cataract surgery Family History Father , age 76 of metastatic prostate cancer Cancer Prostate cancer Heart disease Mother , age 93 Rheumatoid arthritis Social History Smoking Status: Never smoker Second Hand Exposure: No; Do You Dip or Chew Tobacco: No; Hx Alcohol Use: Yes Alcohol type: wine Hx Substance Use: No Preferred Language: Czech Communication Ability: Effective 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 Required: No Beliefs That Will Affect Care: Jewish marital status: Single Current Living Situation: Personal Care Facility Current Living Situation Comment: [facility] current occupational status: retired 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57 How many Children do You have: 0 Feels Safe at Home: Yes Assistive Devices: Walker Allergies Allergies Allergy/AdvReac Type Severity Reaction Status Date / Time No Known Allergies Allergy Verified 06/29/23 15:31 Home Meds Home Medications Medication Instructions Recorded Confirmed levothyroxine 75 mcg tablet 75 mcg PO DAILYBB 08/16/18 06/29/23 omeprazole 20 mg capsule,delayed 20 mg PO DAILYBB 08/16/18 06/29/23 release vit C 250 mg-vit E 90 mg-zinc 40 1 tab PO BID 03/28/21 06/29/23 mg-copper 1 [id number] capsule (PreserVision AREDS-2) lamotrigine 200 mg tablet 200 mg PO HS 01/08/22 06/29/23 oxybutynin chloride 5 mg tablet 2.5 mg PO BID 01/06/23 06/29/23 hydroxyzine HCl 10 mg tablet 20 mg PO BID 03/28/23 06/29/23 hydroxyzine HCl 10 mg tablet 20 mg PO HS 03/28/23 06/29/23 melatonin 10 mg tablet 10 mg PO HS PRN Sleep 03/28/23 06/29/23 nystatin 100,000 unit/gram topical 1 applic topical BID PRN 03/28/23 06/29/23 powder excoriation peg 400-propylene glycol 0.4 %-0.3 1 drp ophthalmic (eye) 6XD PRN Dry 03/28/23 06/29/23 % eye gel drops (Systane Gel) Eyes simethicone 125 mg chewable tablet 125 mg PO QID PRN GAS DISCOMFORT 03/28/23 06/29/23 furosemide 20 mg tablet 20 mg PO DAILY 06/08/23 06/29/23 acetaminophen 650 mg 650 mg PO TID PRN Pain 06/23/23 06/29/23 tablet,extended release (Tylenol 8 Hour) calcium carbonate 400 mg calcium 400 mg PO QID PRN Indigestion 06/23/23 06/29/23 (1,000 mg) chewable tablet (Tums Ultra) calcium carbonate 600 mg-vitamin 1 tab PO DAILY 06/23/23 06/29/23 D3 10 mcg (400 unit) tablet (Calcium 600 + D(3)) hydroxyzine HCl 10 mg tablet 10 - 20 mg PO UD 06/23/23 06/29/23 multivitamin (Daily-Priscila tablet) 1 tab PO DAILY 06/23/23 06/29/23 omega [id number]-fish oil 1,200 mg 1 cap PO QAM 06/23/23 06/29/23 (144 mg-216 mg) capsule (Fish Oil) paroxetine HCl 30 mg tablet (Paxil) 30 mg PO HS 06/23/23 06/29/23 triamcinolone acetonide 0.1 % 1 applic topical BID 06/29/23 06/29/23 topical cream Previous Rx's Medication Instructions Recorded cephalexin 500 mg capsule 500 mg PO BID 7 days #14 caps 06/27/23 Results & Data (ED) Vital Signs Vital Signs - 24 hr 06/29/23 12:55 06/29/23 12:30 06/29/23 13:08 Temperature 36.7 C Temperature Source Oral Pulse Rate 84 80 Pulse Rate [Left Apical] 80 Pulse Rate from SpO2 Sensor Pulse Rhythm Regular Pulse Rhythm [Left Apical] Regular Pulse Strength Normal Pulse Strength [Left Apical] Normal Respiratory Rate 20 16 Respiratory Effort / Characteristics Non-Labored Spontaneous Non-Labored Spontaneous Respiratory Depth Normal Normal Blood Pressure 136/56 L Blood Pressure [Right Arm] Blood Pressure Mean 82 Blood Pressure Mean [Right Arm] Pulse Oximetry 98 98 Oxygen Delivery Method Room Air Room Air Sepsis Recent Fever Within 48 Hours Yes Sepsis New/Unexplained Change in Mental Status No Sepsis Action Taken by Nursing No Action Required 06/29/23 13:29 06/29/23 13:32 06/29/23 14:18 Temperature Temperature Source Pulse Rate Pulse Rate [Left Apical] 81 77 Pulse Rate from SpO2 Sensor Pulse Rhythm Pulse Rhythm [Left Apical] Regular Regular Pulse Strength Pulse Strength [Left Apical] Normal Normal Respiratory Rate 16 16 Respiratory Effort / Characteristics Non-Labored Spontaneous Non-Labored Spontaneous Respiratory Depth Normal Normal Blood Pressure Blood Pressure [Right Arm] 118/49 L 97/45 L Blood Pressure Mean Blood Pressure Mean [Right Arm] 72 62 Pulse Oximetry 98 94 93 Oxygen Delivery Method Room Air Room Air Room Air Sepsis Recent Fever Within 48 Hours Sepsis New/Unexplained Change in Mental Status Sepsis Action Taken by Nursing 06/29/23 14:35 06/29/23 12:54 06/29/23 12:54 Temperature Temperature Source Pulse Rate 82 Pulse Rate [Left Apical] 76 Pulse Rate from SpO2 Sensor Pulse Rhythm Pulse Rhythm [Left Apical] Pulse Strength Pulse Strength [Left Apical] Respiratory Rate 16 17 Respiratory Effort / Characteristics Non-Labored Spontaneous Respiratory Depth Normal Blood Pressure 136/56 L Blood Pressure [Right Arm] 112/42 L Blood Pressure Mean 89 Blood Pressure Mean [Right Arm] 65 Pulse Oximetry 92 Oxygen Delivery Method Room Air Sepsis Recent Fever Within 48 Hours Sepsis New/Unexplained Change in Mental Status Sepsis Action Taken by Nursing 06/29/23 13:00 06/29/23 13:30 06/29/23 13:31 Temperature Temperature Source Pulse Rate 82 84 91 H Pulse Rate [Left Apical] Pulse Rate from SpO2 Sensor 83 77 82 Pulse Rhythm Pulse Rhythm [Left Apical] Pulse Strength Pulse Strength [Left Apical] Respiratory Rate 19 22 20 Respiratory Effort / Characteristics Respiratory Depth Blood Pressure Blood Pressure [Right Arm] Blood Pressure Mean Blood Pressure Mean [Right Arm] Pulse Oximetry 98 93 87 L Oxygen Delivery Method Sepsis Recent Fever Within 48 Hours Sepsis New/Unexplained Change in Mental Status Sepsis Action Taken by Nursing 06/29/23 13:31 06/29/23 14:00 06/29/23 14:01 Temperature Temperature Source Pulse Rate 87 77 Pulse Rate [Left Apical] Pulse Rate from SpO2 Sensor 83 Pulse Rhythm Pulse Rhythm [Left Apical] Pulse Strength Pulse Strength [Left Apical] Respiratory Rate 21 20 Respiratory Effort / Characteristics Respiratory Depth Blood Pressure 118/49 L Blood Pressure [Right Arm] Blood Pressure Mean 87 Blood Pressure Mean [Right Arm] Pulse Oximetry 91 Oxygen Delivery Method Sepsis Recent Fever Within 48 Hours Sepsis New/Unexplained Change in Mental Status Sepsis Action Taken by Nursing 06/29/23 14:30 06/29/23 14:30 06/29/23 15:00 Temperature Temperature Source Pulse Rate 78 76 Pulse Rate [Left Apical] Pulse Rate from SpO2 Sensor 78 76 Pulse Rhythm Pulse Rhythm [Left Apical] Pulse Strength Pulse Strength [Left Apical] Respiratory Rate 21 24 Respiratory Effort / Characteristics Respiratory Depth Blood Pressure 112/42 L Blood Pressure [Right Arm] Blood Pressure Mean 71 Blood Pressure Mean [Right Arm] Pulse Oximetry 92 93 Oxygen Delivery Method Sepsis Recent Fever Within 48 Hours Sepsis New/Unexplained Change in Mental Status Sepsis Action Taken by Nursing Laboratory Data Attestation: I reviewed the patient's lab results. 06/29/23 13:10 06/29/23 13:10 Lab Results 06/29/23 06/29/23 06/29/23 Range/Units 13:10 13:10 13:10 WBC 16.84 H (4.8-10.8) K/ul RBC 3.82 L (4.20-5.40) M/uL Hgb 11.1 L (12.0-16.0) g/dl Hct 34.2 L (37.0-47.0) % MCV 89.5 (80.0-100.0) fL MCH 29.1 (25.0-34.0) pg MCHC 32.5 (32.0-36.0) g/dL RDW Std Deviation 46.0 (36.4-46.3) fL RDW Coeff of Benita 14.0 (11.5-14.5) % Plt Count 337 (130-400) K/uL MPV 8.8 L (9.4-12.4) fL Immature Gran % (Auto) 0.8 % Neut % (Auto) 82.5 % Lymph % (Auto) 8.6 % Rutherford % (Auto) 7.4 % Eos % (Auto) 0.5 % Baso % (Auto) 0.2 % Neut # (Auto) 13.91 H (1.40-6.50) K/uL Lymph # (Auto) 1.45 (1.2-3.4) K/uL Rutherford # (Auto) 1.24 H (0.11-0.59) K/uL Eos # (Auto) 0.08 (0-0.50) K/uL Baso # (Auto) 0.03 (0-0.2) K/uL Immature Gran # (Auto) 0.13 (0.01-0.20) K/uL ESR (0-30) mm/hr Sodium 135 L (136-145) mmol/L Potassium 3.8 (3.5-5.1) mmol/L Chloride 96 L (98-107) mmol/L Carbon Dioxide 32 (21-32) mmol/L Anion Gap 7 (3-11) BUN 43 H (6-23) mg/dl Creatinine 1.17 (0.6-1.2) mg/dl Est Cr Clr Drug Dosing 35.7 ml/min Est GFR ( Amer) 50.6 ml/min Est GFR (Non-Af Amer) 43.7 ml/min BUN/Creatinine Ratio 36.8 H (10-20) Glucose 123 H (70-99(Fasting)) mg/dl Lactate 1.1 (0.4-2.0) mmol/L Calcium 9.6 (8.6-10.3) mg/dl Phosphorus 2.5 (2.5-4.9) mg/dl Magnesium 2.3 (1.7-2.4) mg/dl Total Bilirubin 1.6 H (0.2-1.0) mg/dl Direct Bilirubin 0.5 H (0-0.2) mg/dl AST 132 H (13-39) U/L ALT 103 H (7-52) U/L Alkaline Phosphatase 379 H (34-104) U/L Troponin I High Sens 13.9 (0-14) pg/ml C-Reactive Protein 12.88 H (0-0.5) mg/dl B-Natriuretic Peptide (0-100) pg/ml Total Protein 7.3 (6.0-8.3) gm/dl Albumin 3.9 (3.4-5.0) gm/dl Procalcitonin (0-0.5) ng/ml Anaplasma Smear Babesia Smear Lyme Disease IgG Ab (Negative) Lyme Disease IgM Ab (Negative) 06/29/23 06/29/23 06/29/23 Range/Units 13:10 13:10 13:50 WBC (4.8-10.8) K/ul RBC (4.20-5.40) M/uL Hgb (12.0-16.0) g/dl Hct (37.0-47.0) % MCV (80.0-100.0) fL MCH (25.0-34.0) pg MCHC (32.0-36.0) g/dL RDW Std Deviation (36.4-46.3) fL RDW Coeff of Benita (11.5-14.5) % Plt Count (130-400) K/uL MPV (9.4-12.4) fL Immature Gran % (Auto) % Neut % (Auto) % Lymph % (Auto) % Rutherford % (Auto) % Eos % (Auto) % Baso % (Auto) % Neut # (Auto) (1.40-6.50) K/uL Lymph # (Auto) (1.2-3.4) K/uL Rutherford # (Auto) (0.11-0.59) K/uL Eos # (Auto) (0-0.50) K/uL Baso # (Auto) (0-0.2) K/uL Immature Gran # (Auto) (0.01-0.20) K/uL ESR 55 H (0-30) mm/hr Sodium (136-145) mmol/L Potassium (3.5-5.1) mmol/L Chloride (98-107) mmol/L Carbon Dioxide (21-32) mmol/L Anion Gap (3-11) BUN (6-23) mg/dl Creatinine (0.6-1.2) mg/dl Est Cr Clr Drug Dosing ml/min Est GFR ( Amer) ml/min Est GFR (Non-Af Amer) ml/min BUN/Creatinine Ratio (10-20) Glucose (70-99(Fasting)) mg/dl Lactate (0.4-2.0) mmol/L Calcium (8.6-10.3) mg/dl Phosphorus (2.5-4.9) mg/dl Magnesium (1.7-2.4) mg/dl Total Bilirubin (0.2-1.0) mg/dl Direct Bilirubin (0-0.2) mg/dl AST (13-39) U/L ALT (7-52) U/L Alkaline Phosphatase (34-104) U/L Troponin I High Sens (0-14) pg/ml C-Reactive Protein (0-0.5) mg/dl B-Natriuretic Peptide 115 H (0-100) pg/ml Total Protein (6.0-8.3) gm/dl Albumin (3.4-5.0) gm/dl Procalcitonin 0.18 (0-0.5) ng/ml Anaplasma Smear Babesia Smear Lyme Disease IgG Ab (Negative) Lyme Disease IgM Ab (Negative) 06/29/23 06/29/23 Range/Units 14:37 14:37 WBC (4.8-10.8) K/ul RBC (4.20-5.40) M/uL Hgb (12.0-16.0) g/dl Hct (37.0-47.0) % MCV (80.0-100.0) fL MCH (25.0-34.0) pg MCHC (32.0-36.0) g/dL RDW Std Deviation (36.4-46.3) fL RDW Coeff of Benita (11.5-14.5) % Plt Count (130-400) K/uL MPV (9.4-12.4) fL Immature Gran % (Auto) % Neut % (Auto) % Lymph % (Auto) % [place] % (Auto) % Eos % (Auto) % Baso % (Auto) % Neut # (Auto) (1.40-6.50) K/uL Lymph # (Auto) (1.2-3.4) K/uL [place] # (Auto) (0.11-0.59) K/uL Eos # (Auto) (0-0.50) K/uL Baso # (Auto) (0-0.2) K/uL Immature Gran # (Auto) (0.01-0.20) K/uL ESR (0-30) mm/hr Sodium (136-145) mmol/L Potassium (3.5-5.1) mmol/L Chloride (98-107) mmol/L Carbon Dioxide (21-32) mmol/L Anion Gap (3-11) BUN (6-23) mg/dl Creatinine (0.6-1.2) mg/dl Est Cr Clr Drug Dosing ml/min Est GFR ( Amer) ml/min Est GFR (Non-Af Amer) ml/min BUN/Creatinine Ratio (10-20) Glucose (70-99(Fasting)) mg/dl Lactate (0.4-2.0) mmol/L Calcium (8.6-10.3) mg/dl Phosphorus (2.5-4.9) mg/dl Magnesium (1.7-2.4) mg/dl Total Bilirubin (0.2-1.0) mg/dl Direct Bilirubin (0-0.2) mg/dl AST (13-39) U/L ALT (7-52) U/L Alkaline Phosphatase (34-104) U/L Troponin I High Sens (0-14) pg/ml C-Reactive Protein (0-0.5) mg/dl B-Natriuretic Peptide (0-100) pg/ml Total Protein (6.0-8.3) gm/dl Albumin (3.4-5.0) gm/dl Procalcitonin (0-0.5) ng/ml Anaplasma Smear See Comment Babesia Smear See Comment Lyme Disease IgG Ab Negative (Negative) Lyme Disease IgM Ab Negative (Negative) Administered Medications Insulin Aspart (Insulin Aspart Per Unit Charge) 0 units SC ACHS MIKE Stop: 07/29/23 21:12 Last Admin: 06/29/23 21:51 Dose: Not Given Documented By: NMS Co-signed By: DAVID Discontinued Medications Cefepime HCl (Maxipime) 2,000 mg in 20 mls @ 5 mls/min IV NOW STA; Protocol Stop: 06/29/23 13:59 Last Admin: 06/29/23 14:19 Dose: 5 mls/min Documented By: IRLANDA Daptomycin 325 mg/ Syringe 6.5 mls @ 3.25 mls/min IV Q24H [facility]; Protocol Stop: 07/01/23 13:59 Last Admin: 06/29/23 14:35 Dose: 3.25 mls/min Documented By: IRLANDA Imaging Data Radiologist's Impression: Chest X-Ray 06/29/23 13:18 SINGLE VIEW CHEST CLINICAL HISTORY: Sepsis FINDINGS: An AP, portable, upright chest radiograph is compared to study dated 06/26/2020. The heart is enlarged noting atherosclerotic calcification of the thoracic aorta. The pulmonary vasculature is noncongested. Chronic interstitial thickening is similar to previous. There is bibasilar scarring/atelectasis. No airspace consolidation or large pleural effusion is identified. No pneumothorax is seen. The skeletal structures are osteopenic. There is chronic posttraumatic deformity and postsurgical change noted in the left proximal humerus.. IMPRESSION: Cardiomegaly with no active disease in the chest. ACT 112: Negative or not required by law. Electronically signed by: Jono Duvall M.D. 06/29/2023 2:18 PM Venous Doppler Study 06/29/23 13:52 US venous doppler LE RT HISTORY: 82 years-old Female edema, pain acute pain and swelling of the right lower leg COMPARISON: 03/28/2023 TECHNIQUE: Multiple real-time sonographic images of the right lower extremity deep venous structures were obtained assessing grayscale appearance, color and spectral flow. FINDINGS: Normal flow, compressibility, phasicity and augmentation. Subcutaneous edema. IMPRESSION: No sonographic evidence of deep venous thrombosis. ACT 112: Negative or not required by law. The above report was generated using voice recognition software. It may contain grammatical, syntax or spelling errors. Electronically signed by: Arsenio Weinstein M.D. 06/29/2023 3:51 PM Discharge Plan Visit Data Chief Complaint: Fever Stated Complaint: Fever, recent cellulitis ED Provider: Kunal Johnson Discharge Problem: SIRS (systemic inflammatory response syndrome), Bilateral lower leg cellulitis, Leukocytosis, Elevated erythrocyte sedimentation rate, CRP elevated, Transaminitis Patient Disposition: Admitted As Inpatient Discharge Instructions Interventions: ED Discharge Assessment Last Done: 06/29/23 20:27
[2023-06-29] MEDS ORDERED: CEFEPIME 2,000 MG/20 ML VIAL IV STA (13:56)
[2023-06-29 14:00] LABS: Albumin Level 3.9 gm/dl (3.4-5.0); BUN Creatinine Ratio 36.8 (10-20); Bilirubin Direct 0.5 mg/dl (0-0.2); Bilirubin,Total 1.6 mg/dl (0.2-1.0); Calcium 9.6 mg/dl (8.6-10.3); Creatinine Clr Calc Pharmacy 35.7 ml/min; Est GFR (African American) 50.6 ml/min; Est GFR (Non-African American) 43.7 ml/min; Magnesium 2.3 mg/dl (1.7-2.4); Phosphorus 2.5 mg/dl (2.5-4.9); Potassium 3.8 mmol/L (3.5-5.1); Total Protein 7.3 gm/dl (6.0-8.3)
[2023-06-29] MEDS ORDERED: DAPTOmycin 325 MG in SYRINGE 0 ML IV SCH (14:00)
[2023-06-29 14:08] LABS: Troponin I High Sensitivity 13.9 pg/ml (0-14)
--- NOTE | 2023-06-29 14:20 | XRay Report ---
SINGLE VIEW CHEST CLINICAL HISTORY: Sepsis FINDINGS: An AP, portable, upright chest radiograph is compared to study dated 06/26/2020. The heart i s enlarged noting atherosclerotic calcification of the thoracic aorta. The pulmonary vasculature is n oncongested. Chronic interstitial thickening is similar to previous. There is bibasilar scarring/atel ectasis. No airspace consolidation or large pleural effusion is identified. No pneumothorax is seen. The skeletal structures are osteopenic. There is chronic posttraumatic deformity and postsurgical timothy nge noted in the left proximal humerus.. IMPRESSION: Cardiomegaly with no active disease in the chest. ACT 112: Negative or not required by law. Electronically signed by: Jono Duvall M.D. 06/29/2023 2:18 PM
[2023-06-29 14:45] LABS: C Reactive Protein 12.88 mg/dl (0-0.5)
--- NOTE | 2023-06-29 15:54 | Ultrasound Report ---
US venous doppler LE RT HISTORY: 82 years-old Female edema, pain acute pain and swelling of the right lower leg COMPARISON: 03/28/2023 TECHNIQUE: Multiple real-time sonographic images of the right lower extremity deep venous structures were obtained assessing grayscale appearance, color and spectral flow. FINDINGS: Normal flow, compressibility, phasicity and augmentation. Subcutaneous edema. IMPRESSION: No sonographic evidence of deep venous thrombosis. ACT 112: Negative or not required by law. The above report was generated using voice recognition software. It may contain grammatical, syntax o r spelling errors. Electronically signed by: Arsenio Weinstein M.D. 06/29/2023 3:51 PM
[2023-06-29 16:18] LABS: Lyme Ab IgG w/WB Rflx Negative (Negative)
[2023-06-29 16:20] LABS: Lyme Ab IgM w/WB Rflx Negative (Negative)
--- NOTE | 2023-06-29 16:59 | History & Physical Report ---
Date of Service June 29, 2023 Assessment & Plan (1) Cellulitis of left lower leg: Plan: Worsening cellulitis. DDx includes venous stasis dermatitis - R >> L. Atypical for bilateral cellulitis, but R much worse then left with fever, chills, and erythema/warmth/tender. Given this we will treat as potential infectious cellulitis Leukocytosis uptrending, 16.84 on admission Expanding erythema on admission, marked with surgical pen ESR 55 CRP 12.88 and trend Creatinine 1.17 MRSA nares pending, discontinue daptomycin if negative Dopplers negative for DVT CXR with no acute fine No obvious fluid overload, BNP is elevated but stable from prior and with valvular disease. No JVD. Admitted on cefepime/Dapto. Continued. Discontinue Dapto given transaminitis, if MRSA nare+ can add Vanco. Narrowed to Rocephin if improving and continue to follow CRP daily BC pending Transaminitis Mild, chronic. Suspected due to hepatic congestion related to CHF No CHF evidence on admission Prior hepatitis panel negative T. bili 1.6 Liver ultrasound 05/2023: Normal liver size and echotexture, cholelithiasis without cholecystitis. No clinical signs of cholecystitis. Continue to trend. Tylenol? Patient reports she takes 1 Tylenol intermittently, has not taken several Tylenol in a single day or Tylenol multiple days in a row. Low suspicion for Tylenol overdose GERD - PPI daily ?Venous stasis versus diastolic CHF, no exacerbation - EF 60-65%. Denies CHF, endorses leg swelling improved with lasix. 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 Last A1c around 6%. We will add very conservative sliding scale. Glucose checks AC/at bedtime, goal [id number] Anxiety/depression Continue home meds History of A-fib Not on anticoagulation Sinus QTc 435 on admission No RVR or evidence of exacerbation Spotcheck vitals, follow on med surge DVT prophylaxis: Lovenox Diet: Heart healthy Disposition: Medical surgical CODE STATUS: Full code (2) Acute on chronic diastolic CHF (congestive heart failure): (3) Depression with anxiety: (4) Hypothyroidism: (5) Elevated liver enzymes: History of Present Illness Primary Care Provider: CLAYTON Phelan is an 82-year-old female with a recent history of cellulitis on Keflex, hypothyroidism, depression/anxiety, paroxysmal A-fib with RVR not on anticoagulation who presents with worsening cellulitis. She failed outpatient Keflex and has been placed on cefepime/daptomycin in the ER Seen at the bedside. She reports she was recently seen this past week for cellulitis of lower extremity. She reports she was put on Keflex and that does not help very much. She has continued to have fever, chills, and felt warm at night for at least 2 to 3 days. She notes that the redness of her leg has continued to spread, is much worse on the right compared to the left. Denies chest pain, chest pressure, nausea/vomiting/diarrhea. Denies abdominal pain. Denies syncope and presyncope. Denies neck pain. Was recently in the hospital and discharged 06/27 for bilateral lower extremity swelling suspected due to combination of venous insufficiency/stasis dermatitis. Did get a dose of steroids while inpatient, these were not continued and she has taken no steroids in the last 2 days per patient. Medical History: Reviewed Medications: Reviewed Surgical History: Reviewed Family history: Reviewed Allergies: Reviewed Social History: Reviewed Code Status: Full Allergies Allergy/AdvReac Type Severity Reaction Status Date / Time No Known Allergies Allergy Verified 06/29/23 15:31 Home Medications Medication Instructions Recorded Confirmed Type levothyroxine 75 mcg tablet 75 mcg PO DAILYBB 08/16/18 06/29/23 History omeprazole 20 mg capsule,delayed 20 mg PO DAILYBB 08/16/18 06/29/23 History release vit C 250 mg-vit E 90 mg-zinc 40 1 tab PO BID 03/28/21 06/29/23 History mg-copper 1 ox-yeajpm-mimkus capsule (PreserVision AREDS-2) lamotrigine 200 mg tablet 200 mg PO HS 01/08/22 06/29/23 History oxybutynin chloride 5 mg tablet 2.5 mg PO BID 01/06/23 06/29/23 History hydroxyzine HCl 10 mg tablet 20 mg PO BID 03/28/23 06/29/23 History hydroxyzine HCl 10 mg tablet 20 mg PO HS 03/28/23 06/29/23 History melatonin 10 mg tablet 10 mg PO HS PRN Sleep 03/28/23 06/29/23 History nystatin 100,000 unit/gram topical 1 applic topical BID PRN 03/28/23 06/29/23 History powder excoriation peg 400-propylene glycol 0.4 %-0.3 1 drp ophthalmic (eye) 6XD PRN Dry 03/28/23 06/29/23 History % eye gel drops (Systane Gel) Eyes simethicone 125 mg chewable tablet 125 mg PO QID PRN GAS DISCOMFORT 03/28/23 06/29/23 History furosemide 20 mg tablet 20 mg PO DAILY 06/08/23 06/29/23 History acetaminophen 650 mg 650 mg PO TID PRN Pain 06/23/23 06/29/23 History tablet,extended release (Tylenol 8 Hour) calcium carbonate 400 mg calcium 400 mg PO QID PRN Indigestion 06/23/23 06/29/23 History (1,000 mg) chewable tablet (Tums Ultra) calcium carbonate 600 mg-vitamin 1 tab PO DAILY 06/23/23 06/29/23 History D3 10 mcg (400 unit) tablet (Calcium 600 + D(3)) hydroxyzine HCl 10 mg tablet 10 - 20 mg PO UD 06/23/23 06/29/23 History multivitamin (Daily-Priscila tablet) 1 tab PO DAILY 06/23/23 06/29/23 History omega 0-dez-bzb-fish oil 1,200 mg 1 cap PO QAM 06/23/23 06/29/23 History (144 mg-216 mg) capsule (Fish Oil) paroxetine HCl 30 mg tablet (Paxil) 30 mg PO HS 06/23/23 06/29/23 History cephalexin 500 mg capsule 500 mg PO BID 7 days #14 caps 06/27/23 06/29/23 Rx triamcinolone acetonide 0.1 % 1 applic topical BID 06/29/23 06/29/23 History topical cream Past Med/Surg History Medical History Anxiety Aortic stenosis Cellulitis Degenerative arthritis Depression with anxiety Heart murmur Patient will be scheduled for an echocardiogram she is no recollection of being told that she had a heart murmur Hypothyroidism Paroxysmal atrial fibrillation with RVR Postherpetic neuralgia Rib fracture Weakness Surgical History S/P cataract surgery Family History Father , age 76 of metastatic prostate cancer Cancer Prostate cancer Heart disease Mother , age 93 Rheumatoid arthritis Social History Smoking Status: Never smoker Second Hand Exposure: No; Do You Dip or Chew Tobacco: No; Hx Alcohol Use: Yes Alcohol type: wine Hx Substance Use: No Preferred Language: Croatian Communication Ability: Effective 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 NAD. Cooperative. HEENT: Atraumatic, normocephalic. PERLAA. EoM intact. Vision/hearing intact. Pulm: CTAB A&P. -wheezes, -rales, -rhonchi. Symmetrical chest rise. No increased work of breathing. No respiratory distress. Cardiac: RRR, +sm. Radial pulses intact and symmetrical. Abdominal: Nontender, nondistended, soft. BS present. Ext: RLE with erythema, warmth, mild TTP up to the knee. LLE with slight erythema/warmth proximal to ankle. No oozing/ulcers/purulence. Sensation intact to soft touch. no edema. cap refill in hallux intact Results & Data Results & Data Vital Signs (Past 12 Hours) Vital Signs Temp Pulse Pulse Resp BP BP Pulse Ox 06/29/23 14:35 76 16 112/42 L 92 06/29/23 14:18 77 16 97/45 L 93 06/29/23 13:32 81 16 118/49 L 94 06/29/23 13:29 98 06/29/23 13:08 80 16 98 06/29/23 12:30 36.7 C 80 20 136/56 L 98 06/29/23 12:55 84 O2 Del Method 06/29/23 14:35 Room Air 06/29/23 14:18 Room Air 06/29/23 13:32 Room Air 06/29/23 13:29 Room Air 06/29/23 13:08 Room Air 06/29/23 12:30 Room Air 06/29/23 12:55 PG Care Time/CCT Total # of Minutes Spent Total Time Spent with Patient: Total time spent is greater than 50% in coordination of care (as documented) at patient's floor/unit and/or counseling patient: Coding Level of Care Code 19813 INT INP/OBS CARE 2/55MIN Diagnoses Cellulitis of left lower leg L03.116 Acute on chronic diastolic CHF (congestive heart failure) I50.33 Depression with anxiety F41.8 Hypothyroidism E03.9 Hypothyroidism type: acquired Elevated liver enzymes R74.8 (4) Hypothyroidism Hypothyroidism type: acquired Qualified Code(s): E03.9 - Hypothyroidism, unspecified
[2023-06-29 18:49] LABS: Appearance Urine Clear (Clear); Bilirubin Urine Negative (Negative); Blood Urine Negative (Negative); Color Urine Yellow; Glucose Urine UA Negative (Negative); Ketones Urine Negative (Negative); Leukocyte Esterase Urine Negative (Negative); Nitrite Urine Negative (Negative); Protein Urine Negative (Negative); Specific Gravity Urine 1.017 (1.000-1.030); Urobilinogen Urine Negative (Negative)
[2023-06-29] MEDS ORDERED: SIMETHICONE 80 MG CHEW PO PRN (21:13)
[2023-06-29] MEDS ORDERED: DEXTROSE 50% 50 ML SYRINGE IV PRN (21:13)
[2023-06-29] MEDS ORDERED: GLUCOSE 10 TAB/TUBE PO PRN (21:13)
[2023-06-29] MEDS ORDERED: CARBOHYDRATES FOR HYPOGLYCEMIA PO PRN (21:13)
[2023-06-29] MEDS ORDERED: GLUCOSE 40% GEL 15 GM TUBE PO PRN (21:13)
[2023-06-29] MEDS ORDERED: hydrOXYzine HCl 10 MG TAB PO PRN (21:13)
[2023-06-29] MEDS ORDERED: MELATONIN 3 MG TAB PO PRN (21:13)
[2023-06-29] MEDS ORDERED: ONDANSETRON INJ 2 MG/ML 2 ML VIAL IV PRN (21:13)
[2023-06-29] MEDS ORDERED: GLUCAGON FOR INJ 1 MG VIAL SQ PRN (21:13)
[2023-06-29] MEDS ORDERED: ARTIFICIAL TEARS OP PRN (21:45)
[2023-06-29] MEDS: INSULIN ASPART PER UNIT CHARGE SC SCH (21:51)
[2023-06-29] MEDS: lamoTRIgine 100 MG TAB PO SCH (22:54)
[2023-06-29] MEDS: oxyBUTYnin chloride 5 MG TAB PO SCH (22:54)
[2023-06-29] MEDS: hydrOXYzine HCl 10 MG TAB PO SCH (22:54)
[2023-06-29] MEDS: TRIAMCINOLONE ACET 0.1% CR 15 GM TUBE TOP SCH (22:55)
[2023-06-29] MEDS: PARoxetine HCL 20 MG TAB PO SCH (22:55)
[2023-06-29] MEDS: CEFEPIME 2,000 MG in SYRINGE 0 ML IV SCH (23:00)
[2023-06-30] MEDS: LEVOTHYROXINE SODIUM 75 MCG TABLET PO SCH (05:31)
[2023-06-30] MEDS: PANTOprazole 40 MG TAB PO SCH (05:31)
[2023-06-30 08:28] LABS: Basophils # (auto) 0.03 K/uL (0-0.2); Basophils % (auto) 0.3 %; Eosinophils % (auto) 3.5 %; Hematocrit (blood only) 33.3 % (37.0-47.0); Hemoglobin 10.7 g/dl (12.0-16.0); Immature Granulocytes # (auto) 0.05 K/uL (0.01-0.20); Immature Granulocytes % (auto) 0.6 %; Lymphocytes # (auto) 1.79 K/uL (1.2-3.4); Lymphocytes % (auto) 20.6 %; Mean Corpuscular Hemoglobin 29.1 pg (25.0-34.0); Mean Corpuscular Hgb Conc 32.1 g/dL (32.0-36.0); Mean Corpuscular Volume 90.5 fL (80.0-100.0); Mean Platelet Volume 8.6 fL (9.4-12.4); Monocytes # (auto) 0.76 K/uL (0.11-0.59); Monocytes % (auto) 8.8 %; Neutrophils # (auto) 5.74 K/uL (1.40-6.50); Neutrophils % (auto) 66.2 %; Platelet Count 295 K/uL (130-400); RDW Coefficient of Variation 13.9 % (11.5-14.5); RDW Standard Deviation 46.1 fL (36.4-46.3); Red Blood Count 3.68 M/uL (4.20-5.40); White Blood Count 8.67 K/ul (4.8-10.8)
[2023-06-30] MEDS: TRIAMCINOLONE ACET 0.1% CR 15 GM TUBE TOP SCH ×2 (08:41→20:41)
[2023-06-30] MEDS: MULTIVITAMIN TAB PO SCH (08:41)
[2023-06-30] MEDS: CEROVITE ADV FORMULA TAB PO SCH (08:41)
[2023-06-30] MEDS: oxyBUTYnin chloride 5 MG TAB PO SCH ×2 (08:42→20:40)
[2023-06-30] MEDS: OMEGA-3 (PURIFIED FISH OIL) 1 GM CAP PO SCH (08:43)
[2023-06-30] MEDS: FUROSEMIDE 20 MG TAB PO SCH (08:43)
[2023-06-30] MEDS: INSULIN ASPART PER UNIT CHARGE SC SCH ×4 (08:48→20:43)
[2023-06-30 09:26] LABS: Estimated Average Glucose 128 mg/dl; Hemoglobin A1C 6.1 % (4.5-5.6)
--- NOTE | 2023-06-30 09:30 | Hospitalist Progress Note ---
Date of Service June 30, 2023 Assessment & Plan (1) Cellulitis of left lower leg: Plan: Worsening cellulitis. also includes venous stasis dermatitis fever, chills, and erythema/warmth/tender. marked with surgical pen improvement after 24 hours Dopplers negative for DVT CXR with no acute findings ER on cefepime/Dapto. Continued. Discontinue Dapto given transaminitis, Narrowed to Rocephin slight worsening of CRP if clinically worsens may need to consider better resistant gram-positive coverage Transaminitis Mild, chronic. Suspected due to hepatic congestion related to CHF No CHF evidence on admission Prior hepatitis panel negative T. bili 1.6 Liver ultrasound 05/2023: Normal liver size and echotexture, cholelithiasis without cholecystitis. No clinical signs of cholecystitis. ?Venous stasis versus diastolic CHF, no exacerbation - EF 60-65%. Denies CHF, endorses leg swelling improved with lasix. 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 Last A1c around 6%. Repeat 6.1, we will add very conservative sliding scale. Glucose checks AC/at bedtime, goal [id number] Anxiety/depression Continue home meds History of A-fib Not on anticoagulation No RVR or evidence of exacerbation DVT prophylaxis: Lovenox CODE STATUS: Full code (2) Acute on chronic diastolic CHF (congestive heart failure): (3) Depression with anxiety: (4) Hypothyroidism: (5) Elevated liver enzymes: Admission and Anticipated Discharge Date Admission Date: June 29, 2023 Subjective Patient was seen she is very pleasant she does have some improvement of the redness of her legs which appear to be shrinking from lines of demarcation drawn with surgical pins Erythema however does spread to her feet. Her legs are less painful Physical Exam Physical Exam: Bilateral erythema right greater than left with some changes that do appear to be consistent with cellulitis Cardiopulmonary exam is normal at this time Results & Data Results & Data Vital Signs (Past 12 Hours) Vital Signs Temp Pulse Pulse Resp BP Pulse Ox O2 Del Method 06/30/23 07:21 98.1 F 72 17 102/51 L 98 Room Air 06/29/23 23:40 99.0 F 72 18 117/57 L 98 Room Air Laboratory Results Reviewed CBC, chemistry, hemoglobin A1c, and C-reactive protein PG Care Time/CCT Total # of Minutes Spent Total Time Spent with Patient: Total time spent is greater than 50% in coordination of care (as documented) at patient's floor/unit and/or counseling patient: Coding Level of Care Code 61812 SUB INP/OBS CARE 2/35MIN Diagnoses Cellulitis of left lower leg L03.116 Acute on chronic diastolic CHF (congestive heart failure) I50.33 Depression with anxiety F41.8 Hypothyroidism E03.9 Hypothyroidism type: acquired Elevated liver enzymes R74.8 (4) Hypothyroidism Hypothyroidism type: acquired Qualified Code(s): E03.9 - Hypothyroidism, unspecified
[2023-06-30 09:34] LABS: BUN Creatinine Ratio 32.4 (10-20); C Reactive Protein 17.47 mg/dl (0-0.5); Calcium 8.8 mg/dl (8.6-10.3); Creatinine Clr Calc Pharmacy 38.4 ml/min; Est GFR (African American) 57.7 ml/min; Est GFR (Non-African American) 49.8 ml/min; Potassium 4.2 mmol/L (3.5-5.1)
[2023-06-30] MEDS: CEFEPIME 2,000 MG in SYRINGE 0 ML IV SCH ×2 (11:50→23:59)
[2023-06-30] MEDS: lamoTRIgine 100 MG TAB PO SCH (20:39)
[2023-06-30] MEDS: PARoxetine HCL 20 MG TAB PO SCH (20:40)
[2023-06-30] MEDS: hydrOXYzine HCl 10 MG TAB PO SCH (20:40)
[2023-07-01] MEDS: LEVOTHYROXINE SODIUM 75 MCG TABLET PO SCH (05:42)
[2023-07-01] MEDS: PANTOprazole 40 MG TAB PO SCH (05:42)
[2023-07-01 07:08] LABS: Basophils # (auto) 0.03 K/uL (0-0.2); Basophils % (auto) 0.4 %; Eosinophils % (auto) 4.1 %; Hematocrit (blood only) 31.6 % (37.0-47.0); Hemoglobin 10.1 g/dl (12.0-16.0); Immature Granulocytes # (auto) 0.07 K/uL (0.01-0.20); Immature Granulocytes % (auto) 0.9 %; Lymphocytes % (auto) 31.1 %; Mean Corpuscular Hemoglobin 28.9 pg (25.0-34.0); Mean Corpuscular Volume 90.5 fL (80.0-100.0); Mean Platelet Volume 8.7 fL (9.4-12.4); Monocytes # (auto) 0.76 K/uL (0.11-0.59); Monocytes % (auto) 10.3 %; Neutrophils # (auto) 3.93 K/uL (1.40-6.50); Neutrophils % (auto) 53.2 %; Platelet Count 312 K/uL (130-400); RDW Standard Deviation 46.5 fL (36.4-46.3); Red Blood Count 3.49 M/uL (4.20-5.40); White Blood Count 7.39 K/ul (4.8-10.8)
[2023-07-01 07:39] LABS: BUN Creatinine Ratio 28.2 (10-20); Calcium 8.8 mg/dl (8.6-10.3); Creatinine Clr Calc Pharmacy 32.5 ml/min; Est GFR (African American) 47.2 ml/min; Est GFR (Non-African American) 40.7 ml/min; Potassium 4.6 mmol/L (3.5-5.1)
[2023-07-01] MEDS: TRIAMCINOLONE ACET 0.1% CR 15 GM TUBE TOP SCH (07:58)
[2023-07-01] MEDS: oxyBUTYnin chloride 5 MG TAB PO SCH (07:59)
[2023-07-01] MEDS: CEROVITE ADV FORMULA TAB PO SCH (07:59)
[2023-07-01] MEDS: OMEGA-3 (PURIFIED FISH OIL) 1 GM CAP PO SCH (08:00)
[2023-07-01] MEDS: MULTIVITAMIN TAB PO SCH (08:00)
[2023-07-01] MEDS: FUROSEMIDE 20 MG TAB PO SCH (08:01)
[2023-07-01] MEDS: INSULIN ASPART PER UNIT CHARGE SC SCH ×3 (08:04→16:54)
[2023-07-01] MEDS: CEFEPIME 2,000 MG in SYRINGE 0 ML IV SCH (12:25)
--- NOTE | 2023-07-01 15:30 | Discharge Summary ---
Date of Service July 01, 2023 Admission HPI Per Admitting Provider Zhane is an 82-year-old female with a recent history of cellulitis on Keflex, hypothyroidism, depression/anxiety, paroxysmal A-fib with RVR not on anticoagulation who presents with worsening cellulitis. She failed outpatient Keflex and has been placed on cefepime/daptomycin in the ER Seen at the bedside. She reports she was recently seen this past week for cellulitis of lower extremity. She reports she was put on Keflex and that does not help very much. She has continued to have fever, chills, and felt warm at night for at least 2 to 3 days. She notes that the redness of her leg has continued to spread, is much worse on the right compared to the left. Denies chest pain, chest pressure, nausea/vomiting/diarrhea. Denies abdominal pain. Denies syncope and presyncope. Denies neck pain. Was recently in the hospital and discharged 06/27 for bilateral lower extremity swelling suspected due to combination of venous insufficiency/stasis dermatitis. Did get a dose of steroids while inpatient, these were not continued and she has taken no steroids in the last 2 days per patient. Medical History: Reviewed Medications: Reviewed Surgical History: Reviewed Family history: Reviewed Allergies: Reviewed Social History: Reviewed Code Status: Full Principal Diagnosis cellulitis venous stasis dermatitis Discharge Exam Patient had dramatic improvement of the cellulitis that was overlying the venous stasis dermatitis of her lower extremities. This stasis dermatitis persists Patient complains of some right knee pain however there is no effusion there is no clicking locking or instability Discharge Data Allergies Allergy/AdvReac Type Severity Reaction Status Date / Time No Known Allergies Allergy Verified 06/29/23 15:31 Consultations 06/29/23 15:06 ED Decision to Admit Stat Ordered Studies 06/29/23 13:52 US venous doppler LE RT Stat Hospital Course (1) Cellulitis of left lower leg: Worsening cellulitis. also includes venous stasis dermatitis fever, chills, and erythema/warmth/tender. marked with surgical pen improvement patient placed on doxycycline as she was on cephalexin as an outpatient which failed thus doxycycline will cover more resistant organisms Dopplers negative for DVT CXR with no acute findings Transaminitis Mild, chronic. Suspected due to hepatic congestion related to CHF No CHF evidence on admission Prior hepatitis panel negative T. bili 1.6 Liver ultrasound 05/2023: Normal liver size and echotexture, cholelithiasis without cholecystitis. No clinical signs of cholecystitis. ?Venous stasis versus diastolic CHF, no exacerbation - EF 60-65%. Denies CHF, endorses leg swelling improved with lasix. Clinically exam is euvolemic Continue Lasix daily Hypothyroidism Continue Synthroid Impaired fasting glucose No antiglycemic's [employer] Last A1c around 6%. Repeat 6.1, continue glucose conservative diet Anxiety/depression Continue home meds History of A-fib Not on anticoagulation No RVR or evidence of exacerbation CODE STATUS: Full code (2) Acute on chronic diastolic CHF (congestive heart failure): (3) Depression with anxiety: (4) Hypothyroidism: (5) Elevated liver enzymes: Total Time Total Time Spent Total Time Spent (In Minutes): It required greater than 30 minutes to prepare this patient for discharge Discharge Plan Discharge Items Patient Disposition: Home - Home Health Services Reason For Visit: CELLULITIS Discharge Diagnosis: cellulitis of lower legs R>L Activity: Resume your previous activity Activity Comment: elevate legs when not walking Non-emergency contact: Primary Care Provider Call non-emergency contact if: your symptoms worsen Follow-up/Referrals: [facility] [Primary Care Provider] - Diet: Carb Consistent or DM2 and Low Sodium (2gm) Addtl Attending Provider Instructions: It will be helpful to elevate your legs when not walking please try to take a least a break every afternoon elevate your legs Helping reduce your leg swelling will be a low-salt diet Complete your antibiotics for the next 8 days, your antibiotics may cause loose bowel movements a probiotic or yogurt may help with this For your knee pain consider having to follow-up with your primary care or orthopedic physician Pending Studies at Discharge: No Stand-Alone Forms: My [employer], Smoking Cessation Medications and DC Order Prescriptions: New doxycycline hyclate 100 mg capsule 100 mg PO BID 8 Days Qty: 16 0RF Continued oxybutynin chloride 5 mg tablet 2.5 mg PO BID furosemide 20 mg tablet 20 mg PO DAILY levothyroxine 75 mcg tablet 75 mcg PO DAILYBB omeprazole 20 mg capsule,delayed release(DR/EC) 20 mg PO DAILYBB lamotrigine 200 mg tablet 200 mg PO HS simethicone 125 mg Tablet,Chewable 125 mg PO QID PRN (Reason: GAS DISCOMFORT) nystatin 100,000 unit/gram Powder 1 applic TOPICAL BID PRN (Reason: excoriation) Rx Instructions: under bilateral breast hydroxyzine HCl 10 mg Tablet 20 mg PO BID Rx Instructions: DAILY AT 1100 & 1700 hydroxyzine HCl 10 mg Tablet 20 mg PO HS Rx Instructions: TAKES AT 2300 Systane Gel 0.4-0.3 % Drops,Gel 1 drp OPHTHALMIC (EYE) 6XD PRN (Reason: Dry Eyes) melatonin 10 mg Tablet 10 mg PO HS PRN (Reason: Sleep) omega 2-kby-dyn-fish oil [Fish Oil] 1,200 (144-216) mg Capsule 1 cap PO QAM multivitamin [Daily-Priscila] Tablet 1 tab PO DAILY calcium carbonate-vitamin D3 [Calcium 600 + D(3)] 600 mg-10 mcg (400 unit) Tablet 1 tab PO DAILY paroxetine HCl [Paxil] 30 mg Tablet 30 mg PO HS hydroxyzine HCl 10 mg tablet 10 - 20 mg PO UD Rx Instructions: take 1-2 tablets by mouth as needed for anxiety acetaminophen [Tylenol 8 Hour] 650 mg Tablet Extended Release 650 mg PO TID MDD 3 GRAMS APAP/24 HOURS PRN (Reason: Pain) calcium carbonate [Tums Ultra] 400 mg calcium (1,000 mg) Tablet,Chewable 400 mg PO QID PRN (Reason: Indigestion) PreserVision AREDS-2 250-90-40-1 mg Capsule 1 tab PO BID triamcinolone acetonide 0.1 % Cream 1 applic TOPICAL BID Rx Instructions: APPLY TO BILAT. SHINS TWICE DAILY FOR IRRITATION, NOTIFY MD AFTER 3 DAYS. Discontinued cephalexin 500 mg capsule 500 mg PO BID 7 Days Qty: 14 0RF Rx Instructions: STARTED 06/27/23 FOR 7 DAYS, ENDS 07/04/23 WITH AM DOSE. Discharge Orders: Discharge Order (Routine); Ordered 07/01/23 Ordered By: Ever Hale Admission Data Admit Date/Time: 06/29/23 17:16 Attending Provider: Ever Hale Admit Provider: Bharat Salguero Primary Care Provider: Henok ARNOLD Providers: Bharat Salguero Coding Level of Care Code 78398 INP/OBS DISCH >30 MIN Diagnoses Cellulitis of left lower leg L03.116 Acute on chronic diastolic CHF (congestive heart failure) I50.33 Depression with anxiety F41.8 Hypothyroidism E03.9 Hypothyroidism type: acquired Elevated liver enzymes R74.8
[2023-07-01] MEDS ORDERED: DOXYCYCLINE HYCLATE 100 MG CAP PO STA (15:44)
[2023-07-01] MEDS ORDERED: AMOXICILLIN/CLAVULANATE 875 MG TAB PO SCH (17:00)
--- NOTE | 2023-07-01 19:38 | Electrocardiogram Report ---
Test Reason : Blood Pressure : / mmHG Vent. Rate : 080 BPM Atrial Rate : 080 BPM P-R Int : 136 ms QRS Dur : 076 ms QT Int : 378 ms P-R-T Axes : 054 030 035 degrees QTc Int : 435 ms Normal sinus rhythm Normal ECG When compared with ECG of 28-MAR-2023 19:15, No significant change was found Confirmed by Troy Reveles ([id number]) on 07/01/2023 7:38:17 PM Referred By: Confirmed By:Troy Reveles
[2023-07-04 01:06] LABS: Ehrlichia chaff DNA Bld Negative (Negative)
== END 2023-07-01 17:48 | disposition home health service (06) | DRG 603 ==
LOC: ED 12:48 → SUATTDRO 17:16 → 3N 17:16

== ENCOUNTER 2023-11-12 16:39 | Inpatient (IN) ==
--- OUTSIDE RECORDS SUMMARY | 2023-11-12 16:46 | External Medical Summary | Summary of Care ---
Author Name Unknown Organization [facility] Address [address] [facility] [address] Phone [phone] Care Team Providers Care Mold Filler Name Role Phone Jeannette Lo MD Primary Care Provid er Reason for Visit * Reason Onset Date Comments Physical Therapy 09/16/2023 Encounter Details Date Type Department Care Team Description 09/16/2023 Telephone Orthopaedics [facility] [address] [place] [address] Rachell Mao MD [address] [place] [address] Physical Therapy Allergies No known active allergiesdocumented as of this encounter (statuses as of 09/16/2023) Medications Medication Sig Dispensed Refills Start Date End Date Status SYNTHROID 75 MCG OR TABS Take by mouth daily . 0 Active omeprazole (PRILOSEC) 20 MG CPDR Take 1 Capsule by mouth in the morning. 1 tab daily . 1 08/24/2018 Active PARoxetine HCl 30 MG Oral Tablet Take 1 Tablet by mouth in the morning. 0 Active lamoTRIgine 200 MG Oral Tablet (LaMICtal) Take 1 Tablet by mouth in the morning. Take 1 tablet at bedtime for anxiety/tremors. 0 Active hydrOXYzine HCl 10 MG Oral Tablet (Atarax) Take 1 Tablet by mouth at bedtime. Take 2 tablets by mouth at bedtime for anxiety 0 Active Fish Oil 1200 MG Oral Capsule Take by mouth . 0 Active Daily-Priscila Oral Tablet Take by mouth . 0 Active PreserVision AREDS 2+Multi Vit Oral Capsule Take by mouth 2 times a day . 0 Active hydrOXYzine HCl 10 MG Oral Tablet (Atarax) Take 1 Tablet by mouth in the morning and 1 Tablet before bedtime. Take 1 tablet by mouth twice a day for anxiety . 0 Active Systane 0.4-0.3 % Ophthalmic Gel (Polyethyl Glycol-Propyl Glycol) Instill into eye . Instill 1 drop in each eye twice daily as needed for dry eye 0 Active Melatonin 10 MG Sublingual Tablet Sublingual Place under the tongue . Take 1 tablet by mouth daily as bedtime as needed for sleep 0 Active Simethicone 125 MG Oral Tablet Chewable Take by mouth . Take 1 tablet by mouth four times daily as needed for gas 0 Active Acetaminophen 500 MG Oral Tablet (Tylenol) Take 1 Tablet by mouth every 6 hours as needed. 0 Active Tums Ultra 1000 1000 MG Oral Tablet Chewable (Calcium Carbonate Antacid) Take 1 Tablet by mouth in the morning and 1 Tablet at noon and 1 Tablet before bedtime. Take 1 tablet by mouth 4 times a day as needed for indigestion . 0 Active Triamcinolone Acetonide 0.1 % External Cream (Aristocort)Indicati ons:Lipodermatoscler osis of both lower extremities Apply topically to affected area 2 times a day . To LOWER LEGS BILATERALLY IN AREAS OF REDNESS AND ITCHINESS. USE FOR 2 WEEKS, then as needed. 80 g 5 05/18/2022 Active SURGICAL COMPRESSION STOCKINGIndications: Lipodermatosclerosis of both lower extremities Supply with one or two pair of below knee velcro compression devices 2 Each 11 05/18/2022 Active Oxybutynin Chloride 5 MG Oral Tablet (Ditropan) Take 0.25 Tablets by mouth in the morning and 0.25 Tablets before bedtime. 0 11/17/2022 Active documented as of this encounter (statuses as of 09/16/2023) Active Problems Problem Noted Date Chronic kidney disease, stage 3a 023 Overview: Per CKD protocol H/O falling 02/28/2023 Essential tremor 02/28/2023 Kyphoscoliosis deformity of spine 2022 Heart murmur 02/28/2023 Systolic murmur 11/27/2022 Current mild episode of major depressive disorder 11/27/2022 Gait disturbance 05/18/2022 Lipodermatosclerosis of both lower extre mities 05/18/2022 Personal history of COVID-19 04/13/2021 Abnormal posture 04/03/2021 Muscle weakness (generalized) 04/03/2021 Unspecified macular degeneration 021 Postherpetic polyneuropathy 04/02/2021 Other specified anxiety disorders 2020 Hypothyroidism 04/02/2021 Gastro-esophageal reflux disease without esophagitis 04/02/2021 documented as of this encounter (statuses as of 09/16/2023) Resolved Problems Problem Noted Date Resolved Date Atrial fibrillation 04/02/2021 02/28/2023 documented as of this encounter (statuses as of 09/16/2023) Immunizations Name Administration Dates Next Due COVID-19 mRNA, LNP-s, No Pre serve, 2-Dose Series (Moderna) 04/29/2021,03/10/2021 COVID-19, mRNA, LNP-s, PF, B ooster, 100mcg/0.5mg (Moderna) 05/11/2022,11/18/2021 Pneumococcal Conjugate Vaccine, 20-valent (Prevn ar20) 02/28/2023 TB Meme Test 04/13/2021,04/03/2021 TDAP (age 11 and older)(Adacel) 03/28/2019 Zoster Vaccine Recombinant (Shingrix) 02/01/2020 ,07/29/2019 documented as of this encounter Social History Tobacco Use Types Packs/Day Years Used Date Smoking Tobacco: Never Smokeless Tobacco: Never Alcohol Use Standard Drinks/Week Comments Never 0 (1 standard drink = 0.6 oz pur e alcohol) Sex Assigned at Date Recorded Female 02/28/2023 3:05 PM E DT Job Start Date Occupation Industry Not on file Not on file Not on file documented as of this encounter Miscellaneous Notes * Telephone Encounter - JAYANT Hui - 09/16/2023 11:46 AM EDT Rec'd PT evaluation and plan of treatment from [facility]; placed in provider's folder forsignature. documented in this encounter Plan of Treatment Health Maintenance Due Date Last Done Comments DXA Scan 1941 Albumin/Creatinine Ratio 1958 CKD PHOS USE SMARTSET 00644 1959 Depression Screening 05/18/2023 05/18/2022 COVID-19 Vaccine ( season) 2023 05/11/2022, 11/18/2021, 04/29/2021, Additional history exists Influenza Vaccine (FLU shot) (#1) 2023 GFR 03/07/2024 09/06/2023, 02/27, 01/27/2023, Additional history exists TSH 03/17/2024 03/17/2023, 03/12/2022, 07/15/2022, Additional history exists CKD HGB USE SMARTSET 95927 09/06/202409/06, 09/06/2023, 03/17/2023, Additional history exists DTaP,Tdap,and Td Vaccines (2 - Td or Tdap) 03/28/2029 03/28/2019 Zoster Vaccines Completed 02/01/2020, 07/29/2019 Pneumococcal Vaccine: 65+ Years Completed 02/28/2023 GARDASIL-HPV IMMUNIZATION SERIES Aged Out No longer eligible based on patient's age to complete this topic Hepatitis B Aged Out No longer eligi ble based on patient's age to complete this topic MENINGOCOCCAL (MENACTRA/MENVEO) Aged Out No longer eligible based on patient's age to complete this topic documented as of this encounter Medical Devices Not on filedocumented as of this encounter Care Teams Mold Filler Relationship Specialty Start Date End Date Jeannette Lo MD [address] [place] [facility] [place] [facility] [place] [address] PCP - General Family Medicine 09/25/22 documented as of this encounter
--- OUTSIDE RECORDS SUMMARY | 2023-11-12 16:46 | External Medical Summary ---
Author Name Unknown Address Unknown Organization K01:[facility] [place] - [address] [facility] [id number] Laboratory Report Ordering Provider Test Date Status NATE MALIN 09/06/2023 14:27:57 Final Observation Date Value Abnormality Reference (Units ) Status SYNC LEUKOCYTES IN BLOOD BY AUTOMATED COUNT 09/06/2023 14:27:57 8.03 4.00-10.80 (K/uL) Final Segs 09/06/2023 14:27:57 59.6 40.0-75.0 (%) Final Lymphs % 09/06/2023 14:27:57 24.0 18.0-42.0 (%) Final Monos 09/06/2023 14:27:57 11.1 Above high normal 1.0-11.0 (%) Final Eosinophils 09/06/2023 14:27:57 3.9 0.0-6.0 (%) Final Basos 09/06/2023 14:27:57 0.9 0.0-2.0 (%) Final Immature Granulocyte, Percent 09/06/2023 14:27:57 0.5 0.0-2.0 (%) Final Absolute Segs 09/06/2023 14:27:57 4.79 1.80-7.70 (K/uL) Final Lymphs, absolute 09/06/2023 14:27:57 1.93 1.00-4.80 (K/ul) Final Monos, Abs 09/06/2023 14:27:57 0.89 0.00-1.10 (K/uL) Final Eos, Abs 09/06/2023 14:27:57 0.31 0.00-0.70 (K/uL) Final Basos, Abs 09/06/2023 14:27:57 0.07 0.00-0.20 (K/uL) Final Immature Granulocytes, Number 09/06/2023 14:27:57 0.04 0.00-0.20 (K/uL) Final Performing Location [facility] [place] - [facility] [address] [place] [address]
--- OUTSIDE RECORDS SUMMARY | 2023-11-12 16:46 | External Medical Summary | Summary of Care ---
Author Name Unknown Organization [facility] Address [address] [place] [address] Phone [phone] Care Team Providers Care Ems Educator Name Role Phone Jeannette Lo MD Primary Care Provid er Reason for Visit * Reason Comments Outpatient Testing Encounter Details Date Type Department Care Team Description 09/06/2023 Laboratory [facility] [address] [place] [address] [facility] [address], [place] [id number] Muscle weakness (generalized); Gait disturbance; Chronic pain of right knee Allergies No known active allergiesdocumented as of this encounter (statuses as of 09/06/2023) Medications Medication Sig Dispensed Refills Start Date [...] as of this encounter (statuses as of 09/06/2023) Active Problems Problem Noted Date Chronic kidney [...] as of this encounter (statuses as of 09/06/2023) Resolved Problems Problem Noted Date Resolved Date Atrial fibrillation 04/02/2021 02/28/2023 documented as of this encounter (statuses as of 09/06/2023) Immunizations Name Administration Dates Next Due COVID-19 [...] on file documented as of this encounter Plan of Treatment Upcoming Encounters Date Type Specialty Care Team Description 09/14/2023 Office Visit Orthopedics Rachell Mao MD [address] [facility] [place] [address] Pending Results Name Type Priority Associated Diagnoses Date /Time COMPREHENSIVE METABOLIC PANEL Lab Routine Muscle weakness (generalized) Gait disturbance Chronic pain of right knee 09/06/2023 2:27 PM EDT CBC WITH WBC DIFFERENTIAL Lab Routine Muscle weakness (generalized) Gait disturbance Chronic pain of right knee 09/06/2023 2:27 PM EDT CBC Lab Routine Muscle weakness (generalized) Gait disturbance Chronic pain of right knee 09/06/2023 2:27 PM EDT DIFFERENTIAL, AUTOMATED Lab Routine Muscle weakness (generalized) Gait disturbance Chronic pain of right knee 09/06/2023 2:27 PM EDT Health Maintenance Due Date Last Done Comments DXA Scan 1941 Albumin/Creatinine Ratio 1959 CKD PHOS USE SMARTSET 75429 1959 Depression Screening 05/18/2023 05/18/2022 COVID-19 Vaccine ( season) 2023 05/11/2022, 11/18/2021, 04/29/2021, Additional history exists Influenza Vaccine (FLU shot) (#1) 2023 GFR 09/16/2023 03/17/2023, 03/0 12/2022, 07/15/2022, Additional history exists CKD HGB USE SMARTSET 43159 03/17/202403/17, 01/27/2023, 07/15/2022, Additional history exists TSH 03/17/2024 03/17/2023, 03/0 12/2022, 07/15/2022, Additional history exists DTaP,Tdap,and Td Vaccines (2 [...] Not on filedocumented as of this encounter Visit Diagnoses Diagnosis Muscle weakness (generalized) Gait disturbance Abnormality of gait Chronic pain of right knee documented in this encounter Care Teams Ems Educator Relationship Specialty Start Date End Date Jeannette Lo MD [address] [id number] PCP - General Family Medicine 09/25/22 documented as of this encounter
--- OUTSIDE RECORDS SUMMARY | 2023-11-12 16:46 | External Medical Summary | Summary of Care ---
Author Name Unknown Organization [facility] Address [address] [place] [address] Phone [phone] Care Team Providers Care Cement Car Dumper Name Role Phone Jeannette Lo MD Primary Care Provid er Reason for Visit * Reason Onset Date Comments Medication Question 10/13/2023 Encounter Details Date Type Department Care Team (Late st Contact Info) Description 10/13/2023 Telephone [facility] [address] [place] [address] Jeannette Lo MD [address] [place] [address] Medication Question Allergies No known active allergiesdocumented as of this encounter (statuses as of 10/13/2023) Medications Medication Sig Dispensed Refills Start Date [...] as needed for indigestion . 0 Active SURGICAL COMPRESSION STOCKINGIndications: Lipodermatosclerosis of both lower extremities Supply with one or two pair of below knee velcro compression devices 2 Each 05/18/2022 Active Oxybutynin Chloride 5 MG Oral Tablet (Ditropan) Take 0.25 Tablets by mouth in the morning and 0.25 Tablets before bedtime. 0 11/17/2022 Active Furosemide 20 MG Oral Tablet (Lasix) Take 1 Tablet by mouth in the morning. 0 06/08/2023 Active Triamcinolone Acetonide 0.1 % External Ointment (Aristocort)Indicati ons:Lipodermatoscler osis of both lower extremities Apply topically to affected area 2 times a day. To affected area. 80 g 5 10/12/2023 Active documented as of this encounter (statuses as of 10/13/2023) Active Problems Problem Noted Date Diagnosed Date Chronic kidney disease, stage 3a 03/07/2023 Overview: Per CKD protocol H/O falling 02/28/2023 Essential tremor 02/28/2023 Kyphoscoliosis deformity of spine 02/28/2023 Heart murmur 02/28/2023 Systolic murmur 11/27/2022 Current mild episode of major depressive disorde r 11/27/2022 Gait disturbance 05/18/2022 Lipodermatosclerosis of both lower extremities 0 05/18/2022 Personal history of COVID-19 04/13/2021 Abnormal posture 04/03/2021 Muscle weakness (generalized) 04/03/2021 Unspecified macular degeneration 04/02/2021 Postherpetic polyneuropathy 04/02/2021 Other specified anxiety disorders 04/02/2021 Hypothyroidism 04/02/2021 Gastro-esophageal reflux disease without esophag itis 04/02/2021 documented as of this encounter (statuses as of 10/13/2023) Resolved Problems Problem Noted Date Diagnosed Date Resolved Date Atrial fibrillation 04/02/2021 02/29/20 documented as of this encounter (statuses as of 10/13/2023) Immunizations Name Administration Dates Next Due COVID-19 [...] Packs/Day Years Used Date Smoking Tobacco: Never Passive Smoke Exposure: Past Smokeless Tobacco: Never Alcohol Use Standard Drinks/Week Comments Never 0 (1 standard drink = 0.6 oz pur e alcohol) PHQ-2 Answer Date Recorded PHQ Adult Total Score 0 05/18/2022 Sex and Gender Information Value Date Recorded Sex Assigned at Female 02/28/2023 3:05 PM EDT Gender Identity Female 02/28/2023 3:05 PM EDT Sexual Orientation Straight 02/28/2023 3: 05 PM EDT Job Start Date Occupation Industry Not on file Not on file Not on file documented as of this encounter Miscellaneous Notes * Telephone Encounter - Chana Sanchez LPN - 10/13/2023 4:09 PM EST Patient is aware and verbalizes understanding. * Telephone Encounter - Debbie Pleitez MED ASSIST - 10/13/2023 4:02 PM EST Tried to call pt. No answer. Please let pt know Dr. Lorenzana said to use it 1-2 times a day. * Telephone Encounter - Kym Shields CPhT - 10/13/2023 3:54 PM EST Patient is requesting a call back regarding the directions for the triamcinolone cream. She stated Dr. Lorenzana told her once a day and the directions say twice a day. [phone]. Thank you, Kym Shields CPhT [facility] 10/13/2023,3:55 PM documented in this encounter Plan of Treatment Upcoming Encounters Date Type Department Care Team (Late st Contact Info) Description 03/13/2024 1:20 PM EDT Office Visit [facility] [address] [place] [facility] [place] [address] Jeannette Lo MD [address] [facility] [id number] Health Maintenance Due Date Last Done Comments DXA Scan 1940 Albumin/Creatinine Ratio 1959 CKD PHOS USE SMARTSET 35693 1959 Depression Screening 05/18/2023 05/18/2022 COVID-19 Vaccine ( season) 2023 05/11/2022, 11/18/2021, 04/29/2021, Additional history exists Influenza Vaccine (FLU shot) (#1) 2023 GFR 03/07/2024 09/06/2023, /, 01/27/2023, Additional history exists TSH 03/17/2024 03/17/2023, 03/12/2022, 07/15/2022, Additional history exists CKD HGB USE SMARTSET 26750 09/06/202409/06, 09/06/2023, 03/17/2023, Additional history exists DTaP,Tdap,and [...] filedocumented as of this encounter Care Teams Cement Car Dumper Relationship Specialty Start Date End Date Jeannette Lo MD [address] [place] [address] PCP - General Family Medicine 09/25/22 documented as of this encounter
--- OUTSIDE RECORDS SUMMARY | 2023-11-12 16:46 | External Medical Summary | Summary of Care ---
Author Name Unknown Organization [facility] Address [address] [place] [address] Phone [phone] Care Team Providers Care Blueprint Assembler Name Role Phone Jeannette Lo MD Primary Care Provid er Reason for Visit * Reason Comments Acute Cellulitis in both l egs Encounter Details Date Type Department Care Team (Latest Contact Info) Description 10/12/2023 11:40 AM EST Office Visit [facility] [address] [place] [phone] May, Ozzie Fry MD [address] [place] [address] Lipodermatosclerosis of both lower extremities*; Stasis dermatitis of both legs; Venous stasis Allergies No known active allergiesdocumented as of this encounter (statuses as of 10/12/2023) Medications Medication Sig Dispensed Refills Start Date [...] for indigestion . 0 Active SURGICAL COMPRESSION STOCKINGIndicatio ns:Lipodermatoscl erosis of both lower extremities Supply with one [...] Active Triamcinolone Acetonide 0.1 % External Ointment (Aristocort)Indic ations:Lipodermat osclerosis of both lower extremities Apply topically to affected area 2 times a day. To affected area. 80 g 5 10/12/2023 Active Triamcinolone Acetonide 0.1 % External Cream (Aristocort)Indic ations:Lipodermat osclerosis of both lower extremities Apply topically to affected area 2 times a day . To LOWER LEGS BILATERALLY IN AREAS OF REDNESS AND ITCHINESS. USE FOR 2 WEEKS, then as needed. 80 g 5 05/18/2022 3 Discontinued documented as of this encounter (statuses as of 10/12/2023) Active Problems Problem Noted Date Diagnosed Date [...] as of this encounter (statuses as of 10/12/2023) Resolved Problems Problem Noted Date Diagnosed Date Resolved Date Atrial fibrillation 04/02/2021 02/29/20 23 documented as of this encounter (statuses as of 10/12/2023) Immunizations Name Administration Dates Next Due COVID-19 [...] Passive Smoke Exposure: Past Smokeless Tobacco: Never Tobacco Cessation:Counseling Given: Not Answered Alcohol Use Standard Drinks/Week Comments Never 0 [...] on file documented as of this encounter Last Filed Vital Signs Vital Sign Reading Time Taken Comments Blood Pressure 140/64 10/12/2023 11:39 AM EST Pulse 78 10/12/2023 11:39 AM EST Temperature 36.7 C (98 F) 10/12/2023 11:39 AM EST Respiratory Rate 20 10/12/2023 11:39 AM EST Oxygen Saturation 98% 10/12/2023 11:39 AM EST Inhaled Oxygen Concentration - - Weight 67.6 kg (149 lb) 10/12/2023 11:39 AM EST Height - - Body Mass Index 27.25 09/06/2023 1:44 PM EDT documented in this encounter Progress Notes * Ozzie Lorenzana MD - 10/12/2023 11:46 AM EST Images from the original note were not included. Assessment and Plan Pigmentation of the lower legs bilaterally consistent with venous stasis and lipodermatosclerosis. Recommend patient use triamcinolone ointment 1 to 2 times a day. Discussed importance of compressionstockings. Elevate legs when resting. Be mobile as much as possible. 1. Lipodermatosclerosis of both lower extremities - Triamcinolone Acetonide 0.1 % External Ointment (Aristocort); Apply topically to affected area 2 times a day. To affected area. Dispense: 80 g; Refill: 5 2. Stasis dermatitis of both legs 3. Venous stasis Wrap-Up Follow up as needed. History of Present Illness The patient is an 82-year-old female with past medical history of hypothyroidism, CKD stage IIIA, GERD, lipodermatosclerosis of the lower extremities bilaterally, post herpetic polyneuropathy, depression, anxiety who presents with skin problem. 82-year-old female who presents with concern for cellulitis. She has bilateral pigmentation of the skin of the lower legs. There is mild warmth overlying and some hyperkeratosis. She was no fevers, chills, other signs of systemic infection. There is no significant pain to palpation. She was previously been diagnosed with venous stasis and stasis dermatitis. Physical Exam Vitals: 10/12/23 1139 Temp: 36.7 C (98 F) Pulse: 78 Resp: 20 SpO2: 98% BP: 140/64 Physical Exam Physical Exam Vitals reviewed. Constitutional: General: She is not in acute distress. Cardiovascular: Rate and Rhythm: Normal rate and regular rhythm. Heart sounds: No murmur heard. Pulmonary: Effort: Pulmonary effort is normal. No respiratory distress. Breath sounds: Normal breath sounds. No wheezing. Skin: Comments: Hyperpigmentation and hyperkeratosis of the lower extremities bilaterally. There is no significant warmth or pain to palpation. No bleeding or drainage. No rashes elsewhere on the body. Neurological: General: No focal deficit present. Mental Status: She is alert. documented in this encounter Nursing Notes * Suzanna Richardson LPN - 10/12/2023 11:33 AM EST Chief Complaint Patient presents with Acute Cellulitis in both legs documented in this encounter Plan of Treatment Upcoming Encounters Date Type Department Care Team (Late st Contact Info) Description 03/13/2024 1:20 PM EDT Office Visit [facility] [address] [place] [facility] [facility] [place] [address] Jeannette Lo MD [address] [place] [facility] [facility] [place] [address] Health Maintenance Due Date Last Done Comments DXA Scan 1941 Albumin/Creatinine Ratio 1958 CKD PHOS USE SMARTSET 36385 1959 Depression Screening 05/18/2023 05/18/2022 COVID-19 Vaccine (24 season) 2023 05/11/2022, 11/18/2021, 04/29/2021, Additional history exists Influenza Vaccine (FLU shot) (#1) 2023 GFR 03/07/2024 09/06/2023, 04/2 , 01/27/2023, Additional history exists TSH 03/17/2024 03/17/2023, 03/0 12/2022, 07/15/2022, Additional history exists CKD HGB USE SMARTSET 52533 09/06/202409/06, 09/06/2023, 03/17/2023, Additional history exists DTaP,Tdap,and [...] as of this encounter Visit Diagnoses Diagnosis Lipodermatosclerosis of both lower extremities- Primary Stasis dermatitis of both legs Varicose veins of lower extremities with inflammation Venous stasis Unspecified venous (peripheral) insufficiency documented in this encounter Care Teams Blueprint Assembler Relationship Specialty Start Date End Date Jeannette Lo MD [address] [place] [address] PCP - General Family Medicine 09/25/22 documented as of this encounter
--- OUTSIDE RECORDS SUMMARY | 2023-11-12 16:46 | External Medical Summary | Summary of Care ---
Author Name Unknown Organization [facility] Address [address] [place] [address] Phone [phone] Care Team Providers Care Computer Aided Design Technician Name Role Phone Jeannette Lo MD Primary Care Provid er Reason for Visit * Reason Comments Procedure Knee injection Encounter Details Date Type Department Care Team (Latest Contact Info) Description 11/04/2023 11:20 AM EST Office Visit [facility] [address] [place] [address] MayOzzie MD [address] [place] [address] Primary osteoarthritis of one knee, right* Allergies No known active allergiesdocumented as of this encounter (statuses as of 11/04/2023) Medications Medication Sig Dispensed Refills Start Date [...] affected area. 80 g 5 10/12/2023 Active Hospital, Clinic, or Other Facility Administered Medication Ordered Dose Route Frequency Start Date End Date Status Triamcinolone Acetonide (Kenalog) 40 MG/ML inj 40 mgIndications:Primary osteoarthritis of one knee, right 40 mg IX ONCE 11/04/2023 11/04/2023 Ended lidocaine 1 % inj 20 mgIndications:Primary osteoarthritis of one knee, right 20 mg IX ONCE 11/04/2023 11/04/2023 Ended documented as of this encounter (statuses as of 11/04/2023) Active Problems Problem Noted Date Diagnosed Date [...] as of this encounter (statuses as of 11/04/2023) Resolved Problems Problem Noted Date Diagnosed Date Resolved Date Atrial fibrillation 04/02/2021 02/29/20 23 documented as of this encounter (statuses as of 11/04/2023) Immunizations Name Administration Dates Next Due COVID-19 [...] Sign Reading Time Taken Comments Blood Pressure 122/58 11/04/2023 11:26 AM EST Pulse 76 11/04/2023 11:26 AM EST Temperature 36.9 C (98.4 F) 11/04/2023 11:[address] Respiratory Rate 16 11/04/2023 11:26 AM EST Oxygen Saturation - - Inhaled Oxygen Concentration - - Weight - - Height - - Body Mass Index - - documented in this encounter Progress Notes * Ozzie Lorenzana MD - 11/04/2023 11:56 AM ESTAssociated Order(s): Arthrocentesis Post-Procedure Diagnose(s): Primary osteoarthritis of one knee, right Karina Hoawrd is a 83 year old female patient. ICD-10-CM 1. Primary osteoarthritis of one knee, right M17.11 Past Medical History: Diagnosis Date Allergic rhinitis 05/01/07 Dr. Russo Chronic pharyngitis 05/01/07 Dr. Russo Depressive disorder, not elsewhere classified Hypothyroidism Blood pressure 122/58, pulse 76, temperature 36.9 C (98.4 F), resp. rate 16. Arthrocentesis Date/Time: 11/04/2023 11:56 AM Performed by: Ozzie Lorenzana MD Authorized by: Ozzie Lorenzana MD Indications: joint swelling and pain Body area: knee Joint: right knee Local anesthesia used: no Anesthesia: Local anesthesia used: no Needle size: 22 G Ultrasound guidance: no Approach: anterior Triamcinolone amount: 40 mg Lidocaine 2% amount: 2 mL Patient tolerance: patient tolerated the procedure well with no immediate complications Ozzie Lorenzana MD 11/04/2023 documented in this encounter Nursing Notes * Daisy Resendez LPN - 11/04/2023 11:30 AM EST The patient has been properly identified by confirmation of name and date of . Chief Complaint Patient presents with Procedure Knee injection documented in this encounter Plan of Treatment Upcoming Encounters Date Type Department Care Team (Late st Contact Info) Description 03/13/2024 1:20 PM EDT Office Visit [facility] [address] [place] [address] Jeannette Lo MD [address] [place] [address] Scheduled Orders Name Type Priority Associated Diagnoses Orde r Schedule ARTHROCENT ASP &/OR INJ MAJOR JX/BURSA W/O US Procedures Routine Primary osteoarthritis of one knee, right Ordered: 11/04/2023 Health Maintenance Due Date Last Done Comments DXA Scan 1941 Albumin/Creatinine Ratio 1959 CKD PHOS USE SMARTSET 19249 1959 Depression Screening 05/18/2023 05/18/2022 COVID-19 Vaccine ( season) 2023 05/11/2022, 11/18/2021, 04/29/2021, Additional history exists Influenza Vaccine (FLU shot) (#1) 2023 GFR 03/07/2024 09/06/2023, 04/, 01/27/2023, Additional history exists TSH 03/17/2024 03/17/2023, 03/0 12/2022, 07/15/2022, Additional history exists CKD HGB USE SMARTSET 47650 09/06/202409/06, 09/06/2023, 03/17/2023, Additional history exists DTaP,Tdap,and [...] Not on filedocumented as of this encounter Procedures Procedure Name Priority Date/Time Associated Diagnosis Comments FL ARTHROCENTESIS ASPIR&/INJ MAJOR JT/BURSA W/O US Routine 11/04/2023 11:56 AM EST Primary osteoarthritis of one knee, right documented in this encounter Results * FL ARTHROCENTESIS ASPIR&/INJ MAJOR JT/BURSA W/O US (11/04/2023 11:56 AM EST) Narrative Ozzie Lorenzana MD - 11/04/2023 11:56 AM EST Ozzie Lorenzana MD 11/04/2023 12:37 PM Arthrocentesis Date/Time: 11/04/2023 11:56 AM Performed by: Ozzie Lorenzana MD Authorized by: Ozzie Lorenzana MD Indications: joint swelling and pain Body area: knee Joint: right knee Local anesthesia used: no Anesthesia: Local anesthesia used: no Needle size: 22 G Ultrasound guidance: no Approach: anterior Triamcinolone amount: 40 mg Lidocaine 2% amount: 2 mL Patient tolerance: patient tolerated the procedure well with no immediate complications Ozzie Lorenzana MD PROCDOC FORM documented in this encounter Visit Diagnoses Diagnosis Primary osteoarthritis of one knee, right- Primary documented in this encounter Administered Medications Inactive Administered Medications - up to 3 most recent administrations Medication Order MAR Action Action Date Dose Rate Site lidocaine 1 % inj 20 mg 20 mg (2 mL), Intra-Articular, ONCE, On Tue11/04/23 at 1215, For 1 dose Given 11/04/2023 12:36 PM EST 20 mg Knee Right Triamcinolone Acetonide (Kenalog) 40 MG/ML inj 40 mg 40 mg, Intra-Articular, ONCE, On Tue11/04/23 at 1215, For 1 dose Given 11/04/2023 12:37 PM EST 40 mg Knee Right documented in this encounter Care Teams Computer Aided Design Technician Relationship Specialty Start Date End Date Jeannette Lo MD [address] [place] [id number] PCP - General Family Medicine 09/25/22 documented as of this encounter
--- OUTSIDE RECORDS SUMMARY | 2023-11-12 16:46 | External Medical Summary ---
Author Name Unknown Address Unknown Organization [id number]:[facility] - [address] [facility] [address] Laboratory Report Ordering Provider Test Date Status NATE MALIN 09/06/2023 14:27:57 Final Observation Date Value Abnormality Reference (Units ) Status WBC, Total 09/06/2023 14:27:57 8.03 4.00-10.80 (K/uL) Final RBC 09/06/2023 14:27:57 4.25 3.85-5.15 (M/uL) Final Hemoglobin 09/06/2023 14:27:57 12.2 12.0-15.3 (g/dL) Final HCT 09/06/2023 14:27:57 39.1 36.0-45.2 (%) Final MCV 09/06/2023 14:27:57 92.0 81.5-97.5 (fL) Final MCH 09/06/2023 14:27:57 28.7 27.0-34.0 (pg) Final MCHC 09/06/2023 14:27:57 31.2 32.0-36.0 (g/dL) Final RDW 09/06/2023 14:27:57 13.7 11.5-15.5 (%) Final Platelets 09/06/2023 14:27:57 362 140-400 (K/uL) Final MPV 09/06/2023 14:27:57 8.7 6.6-11.1 (fL) Final Nucleated erythrocytes/100 leukocytes [Ratio] in Blood by Automated count 09/06/2023 14:27:57 0 <=0 (/100 WBCs) Final Performing Location [facility] - [address] [place] [address]
--- OUTSIDE RECORDS SUMMARY | 2023-11-12 16:46 | External Medical Summary | Summary of Care ---
Author Name Unknown Organization [facility] Address [address] [place] [address] Phone [phone] Care Team Providers Care Electric Melt Operator Name Role Phone Jeannette Lo MD Primary Care Provid er Reason for Referral * Evaluate & Treat - Unlimited Visits (Within 10 days (routine)) - Authorized Specialty Diagnoses / Procedures Referred By Juany goodwin Referred To Contact Physical Therapy / Physical Medicine And Rehab Diagnoses Chronic pain of right knee Primary osteoarthritis of right knee Rachell Mao MD [address] [place] [address] Referral ID Status Reason Start Date Expiration Date Visits Requested Visits Authorized [id number] Authorized Specialty Services Required 3 [phone] Question Answer Referral Priority Within 10 days (routine) Where should this appointment be scheduled? [facility] Reason for Visit * Reason Comments NEW PATIENT Right knee pain * Evaluate & Treat - Unlimited Visits (Within 30 days (routine)) - Authorized Specialty Diagnoses / Procedures Referred By Juany goodwin Referred To Contact Orthopaedic Surgery / Orthopedics Diagnoses Chronic pain of right knee Jeannette Lo MD [address] [place] [address] Referral ID Status Reason Start Date Expiration Date Visits Requested Visits Authorized [id number] Authorized Specialty Services Required [phone] Encounter Details Date Type Department Care Team Description 09/14/2023 Office Visit Orthopaedics [facility] [address] [place] [address] Rachell Mao MD [address] [place] [address] Chronic pain of right knee*; Primary osteoarthritis of right knee Allergies No known active allergiesdocumented as of this encounter (statuses as of 09/14/2023) Medications Medication Sig Dispensed Refills Start Date [...] as of this encounter (statuses as of 09/14/2023) Active Problems Problem Noted Date Chronic kidney [...] as of this encounter (statuses as of 09/14/2023) Resolved Problems Problem Noted Date Resolved Date Atrial fibrillation 04/02/2021 02/28/2023 documented as of this encounter (statuses as of 09/14/2023) Immunizations Name Administration Dates Next Due COVID-19 [...] on file documented as of this encounter Progress Notes * Rachell Mao MD - 09/14/2023 3:00 PM EDT Karina Howard is a 82 year old female who presents for consultation to [facility] for right knee injury/pain. Consult requested by Jeannette Lo MD. Karina Howard is here unaccompanied History: Chief Complaint Patient presents with NEW PATIENT Right knee pain Nursing Notes: Latonia Holcomb LPN 09/14/23 1428 Signed New patient chronic pain with activity of right knee x 2 mths Patient notes just got up one morning and knee started hurting. Patient denies any PT for the right knee or injections or injury or bracing or surgery Karina Howard reports right knee pain ongoing for the past 2 months. States that she just wokeup with it 1 morning. Denies any injury. Hurts more in the morning and gets a little bit better as she gets moving. Hurts mostly in the front of the knee. Also has some ankle pain, notes recent admission for cellulitis. Occasional swelling in the knee. Denies any locking or giving way. Walks with a walker. No numbnesstingling burning or weakness. Takes Tylenol for pain relief. Can not take ibuprofen due to kidney issues. No prior treatments like therapy or injections. Review of systems: All others negative except those noted above in HPI. Review of patient's allergies indicates: No Known Allergies Current Outpatient Medications Medication Sig Dispense Refill SYNTHROID 75 MCG OR TABS Take by mouth daily . omeprazole (PRILOSEC) 20 MG CPDR Take 1 Capsule by mouth in the morning. 1 tab daily . 1 PARoxetine HCl 30 MG Oral Tablet Take 1 Tablet by mouth in the morning. lamoTRIgine 200 MG Oral Tablet (LaMICtal) Take 1 Tablet by mouth in the morning. Take 1 tablet at bedtime for anxiety/tremors. hydrOXYzine HCl 10 MG Oral Tablet (Atarax) Take 1 Tablet by mouth at bedtime. Take 2 tablets by mouth at bedtime for anxiety Fish Oil 1200 MG Oral Capsule Take by mouth . Daily-Priscila Oral Tablet Take by mouth . PreserVision AREDS 2+Multi Vit Oral Capsule Take by mouth 2 times a day . hydrOXYzine HCl 10 MG Oral Tablet (Atarax) Take 1 Tablet by mouth in the morning and 1 Tablet before bedtime. Take 1 tablet by mouth twice a day for anxiety . Systane 0.4-0.3 % Ophthalmic Gel (Polyethyl Glycol-Propyl Glycol) Instill into eye . Instill 1 dropin each eye twice daily as needed for dry eye Melatonin 10 MG Sublingual Tablet Sublingual Place under the tongue . Take 1 tablet by mouth daily as bedtime as needed for sleep Simethicone 125 MG Oral Tablet Chewable Take by mouth . Take 1 tablet by mouth four times daily as needed for gas Acetaminophen 500 MG Oral Tablet (Tylenol) Take 1 Tablet by mouth every 6 hours as needed. Tums Ultra 1000 1000 MG Oral Tablet Chewable (Calcium Carbonate Antacid) Take 1 Tablet by mouth in the morning and 1 Tablet at noon and 1 Tablet before bedtime. Take 1 tablet by mouth 4 times a day as needed for indigestion . Triamcinolone Acetonide 0.1 % External Cream (Aristocort) Apply topically to affected area 2 times a day . To LOWER LEGS BILATERALLY IN AREAS OF REDNESS AND ITCHINESS. USE FOR 2 WEEKS, then as needed. 80 g 5 SURGICAL COMPRESSION STOCKING Supply with one or two pair of below knee velcro compression devices 2 Each 11 Oxybutynin Chloride 5 MG Oral Tablet (Ditropan) Take 0.25 Tablets by mouth in the morning and 0.25 Tablets before bedtime. No current facility-administered medications for this visit. Past Medical History: Diagnosis Date Allergic rhinitis 05/01/07 Dr. Russo Chronic pharyngitis 05/01/07 Dr. 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 Systolic murmur R01.1 Current mild episode of major depressive disorder (HCC) F32.0 H/O falling Z91.81 Essential tremor G25.0 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 Heart murmur R01.1 Chronic kidney disease, stage 3a ([facility]) N18.31 Past Surgical History: Procedure Laterality Date NONE Social History Socioeconomic History Marital status: Spouse name: Not on file Number of children: Not on file Years of education: Not on file Highest education level: Not on file Occupational History Not on file Tobacco Use Smoking status: Never Smokeless tobacco: Never Substance and Sexual Activity Alcohol use: Never Drug use: No Sexual activity: Never Other Topics Concern Service Not Asked Blood Transfusions Not Asked Caffeine Concern Not Asked Occupational Exposure Not Asked Hobby Hazards Not Asked Sleep Concern Not Asked Stress Concern Not Asked Weight Concern Yes Comment: thinks alittle wt recently Special Diet Yes Comment: takes Sindy lie, and caltrate Back Care Not Asked Exercise No Bike Helmet Not Asked Seat Belt Not Asked Self-Exams No Social History Narrative Not on file Social Determinants of Health Financial Resource Strain: Not on file Food Insecurity: Not on file Transportation Needs: Not on file Physical Activity: Not on file Stress: Not on file Social Connections: Not on file Intimate Partner Violence: Not on file Housing Stability: Not on file Family History Problem Relation Age of Onset Arthritis Mother lives in [facility], age 92 Cancer Father prostate, bone, Cancer Aunt (Unspecified) paternal aunt- breast ca Cancer Aunt (Unspecified) maternal aunt- breast ca Cancer Aunt (Unspecified) paternal aunt- non hodgkin's lymphoma Diabetes Aunt (Unspecified) paternal aunt Hypertension Aunt (Unspecified) paternal aunts times 3 Family History; none relevant to today's HPI Objective: Physical Exam There were no vitals filed for this visit. Estimated body mass index is 27.16 kg/m as calculated from the following: Height as of 09/06/23: 1.575 m (5' 2"). Weight as of 09/06/23: 67.4 kg (148 lb 8 oz). General: generally well-nourished and in no acute distress. Seated in chair. Significant kyphosis. HEENT: normocephalic, atraumatic, sclera anicteric. Psych: mood and affect normal , cooperative Card: Peripheral pulses: normal in affected extremity (s) Resp: equal chest rise, non-tachypneic, non-labored breathing Skin: Lipodermatosclerosis of bilateral lower extremities Neuro: Sensation: normal on affected extremity (s) MSK: Nonantalgic, uses a walker. Knee Exam, Bilateral Inspection: No obvious deformity, no redness, swelling, warmth, bruising, abrasion. Palpation: Tender to palpation on the medial and lateral joint lines, lateral patellar facet ROM: Flexion/Neutral/Extension: L - 110/0/0, R - 120/0/0 Popliteal Angle (Hamstring Flexibility): 30 Bilateral Strength: R- Strength: Extension - 5/5 Flexion - 5/5 L - Strength: Extension - 5/5 Flexion - 5/5 quadriceps tone is poor Special Tests: No laxity on valgus and varus stress test at 0 and 30. Negative anterior and posterior drawer. Hip exam, bilateral: passive internal and external rotation reproduces no pain. Radiology (I have personally reviewed the following films): 09/14/2023: Four view x-ray right knee Tricompartmental osteoarthritis - per my interpretation. Awaiting formal radiology interpretation. Advised patient I will call or message them if any changes from the above. Assessment and Plan: ICD-10-CM 1. Chronic pain of right knee M25.561 G89.29 2. Primary osteoarthritis of right knee M17.11 Patient is an 82-year-old female who is seen today for chronic right knee pain. Presentation is consistent with osteoarthritis. I discussed the diagnosis the patient at length and treatment options including physical therapy, bracing, oral medications, injections, and surgical referral. She can nottake anti- inflammatories due to CKD 3, counseled on Tylenol and topical Voltaren gel. Declined bracing. Interested in PT and referral was placed. Initially very indecisive on whether or not she wanted an injection and elected to hold off for now. Follow up if she would like to proceed with injections. The above assessment and plan were discussed at length. All questions were answered, and the patient expressed understanding. Rachell Mao MD Primary Care Sports Medicine [facility] [address] [address] documented in this encounter Nursing Notes * Latonia Holcomb LPN - 09/14/2023 2:24 PM EDT New patient chronic pain with activity of right knee x 2 mths Patient notes just got up one morning and knee started hurting. Patient denies any PT for the right knee or injections or injury or bracing or surgery documented in this encounter Plan of Treatment Pending Results Name Type Priority Associated Diagnoses Date /Time XR KNEE 4 OR MORE VIEWS Medical Imaging Routine Chronic pain of right knee 09/14/2023 2:42 PM EDT Scheduled Referrals Name Type Priority Associated Diagnoses Orde r Schedule PHYSICAL THERAPY REFERRAL OP Referral Within 10 days (routine) Chronic pain of right knee Primary osteoarthritis of right knee Ordered: 09/14/2023 Health Maintenance Due Date Last Done Comments DXA Scan 1940 Albumin/Creatinine Ratio 1959 CKD PHOS USE SMARTSET 94327 1959 Depression Screening 05/18/2023 05/18/2022 COVID-19 Vaccine ( season) 2023 05/11/2022, 11/18/2021, 04/29/2021, Additional history exists Influenza Vaccine (FLU shot) (#1) 2023 GFR 03/07/2024 09/06/2023, /, 01/27/2023, Additional history exists TSH 03/17/2024 03/17/2023, 03/0 12/2022, 07/15/2022, Additional history exists CKD HGB USE SMARTSET 66241 09/06/202409/06, 09/06/2023, 03/17/2023, Additional history exists DTaP,Tdap,and [...] as of this encounter Visit Diagnoses Diagnosis Chronic pain of right knee- Primary Primary osteoarthritis of right knee Primary localized osteoarthrosis, lower leg documented in this encounter Care Teams Electric Melt Operator Relationship Specialty Start Date End Date Jeannette Lo MD [address], [place] [id number] PCP - General Family Medicine 09/25/22 documented as of this encounter
--- OUTSIDE RECORDS SUMMARY | 2023-11-12 16:46 | External Medical Summary | Summary of Care ---
Author Name Unknown Organization [facility] Address [address] [place] [address] Phone [phone] Care Team Providers Care Distributed Energy Systems Consultant Name Role Phone Jeannette Lo MD Primary Care Provid er Reason for Visit * Reason Onset Date Comments Medication Question 10/13/2023 Encounter Details Date Type Department Care Team (Late st Contact Info) Description 10/13/2023 Telephone [facility] [address] [place] [address] Jeannette Lo MD [address] [place] [address] Medication Question Allergies No known [...] a day. * Telephone Encounter - Kym Sheilds CPhT - 10/13/2023 3:54 PM EST Patient is requesting a call back regarding the directions for the triamcinolone cream. She stated Dr. Lorenzana told her once a day and the directions say twice a day. [phone]. Thank you, Kym Shields CPhT Compensator Worker II [facility] ( [facility]) 10/13/2023,3:55 PM documented in this encounter Plan of Treatment Upcoming Encounters Date Type Department Care Team (Late st Contact Info) Description 03/13/2024 1:20 PM EDT Office Visit [facility] [address] [facility] [place] [address] Jeannette Lo MD [address] [facility] [id number] Health Maintenance Due Date Last Done Comments DXA Scan 1940 Albumin/Creatinine Ratio 1958 CKD PHOS USE SMARTSET 82660 1959 Depression Screening 05/18/2023 05/18/2022 COVID-19 Vaccine ( season) 2023 05/11/2022, 11/18/2021, 04/29/2021, Additional history exists Influenza Vaccine (FLU shot) (#1) 2023 GFR 03/07/2024 09/06/2023, /, 01/27/2023, Additional history exists TSH 03/17/2024 03/17/2023, 03/12/2022, 07/15/2022, Additional history exists CKD HGB USE SMARTSET 19670 09/06/202409/06, 09/06/2023, 03/17/2023, Additional history exists DTaP,Tdap,and [...] filedocumented as of this encounter Care Teams Distributed Energy Systems Consultant Relationship Specialty Start Date End Date Jeannette Lo MD [address] [place] [address] PCP - General Family Medicine 09/25/22 documented as of this encounter
--- OUTSIDE RECORDS SUMMARY | 2023-11-12 16:46 | External Medical Summary ---
Author Name Unknown Address Unknown Organization K01:[facility] [address] [place] [id number] Laboratory Report Ordering Provider Test Date Status NATE MALIN 09/06/2023 14:27:57 Final Observation Date Value Abnormality Reference (Units ) Status BUN 09/06/2023 14:27:57 28 Above high normal 6-20 (mg/dL) Final Creatinine 09/06/2023 14:27:57 1.1 Above high normal 0.5-1.0 (mg/dL) Final Glomerular filtration rate/1.73 sq M.predicted [Volume Rate/Area] in Serum, Plasma or Blood by Creatinine-based formula (CKD-EPI) 09/06/2023 14:27:57 53 Below low normal >=60 (mL/min) Final eGFR is calculated based on the CKD-EPI 2020 equation SODIUM 09/06/2023 14:27:57 140 135-146 (m mol/L) Final Potassium 09/06/2023 14:27:57 4.5 3.5-5.1 (m mol/L) Final Cl 09/06/2023 14:27:57 99 98-107 (mm ol/L) Final CO2 09/06/2023 14:27:57 28 22-32 (mmo l/L) Final Anion gap 09/06/2023 14:27:57 13 7-15 (mmol /L) Final Glucose 09/06/2023 14:27:57 170 Above high normal 70 -120 (mg/dL) Final Albumin 09/06/2023 14:27:57 4.1 3.8-5.0 (g /dL) Final AST (Aspartate aminotransferase) 09/06/2023 14:27:57 54 Above high normal 10-35 (U/L) Final Alk Phos 09/06/2023 14:27:57 281 Above high normal 35 -130 (U/L) Final Bilirubin, Total 09/06/2023 14:27:57 0.5 <=1 .2 (mg/dL) Final Calcium 09/06/2023 14:27:57 9.9 8.4-10.2 ( mg/dL) Final Protein 09/06/2023 14:27:57 7.1 6.0-8.3 (g /dL) Final ALT (Alanine aminotransferase) 09/06/2023 14:27:57 60 Above high normal 10-35 (U/L) Final Performing Location [facility] [address] [facility] [address]
--- OUTSIDE RECORDS SUMMARY | 2023-11-12 16:46 | External Medical Summary | Summary of Care ---
Author Name Unknown Organization [facility] Address [address] [place] [address] Phone [phone] Care Team Providers Care Manager Business Information Name Role Phone Jeannette Lo MD Primary Care Provid er Reason for Referral * Evaluate & Treat - Unlimited Visits (Within 30 days (routine)) - Authorized Specialty Diagnoses / Procedures Referred By Juany goodwin Referred To Contact Orthopaedic Surgery / Orthopedics Diagnoses Chronic pain of right knee Jeannette Lo MD [address] [place] [address] Referral ID Status Reason Start Date Expiration Date Visits Requested Visits Authorized [id number] Authorized Specialty Services Required 3 [phone] Question Answer Referral Priority Within 30 days (routine) Where should this appointment be scheduled? [facility] What body part is the patient being seen for? Thigh/Knee What condition is the patient being seen for? Arthritis including related infection Reason for Visit * Reason Comments Follow Up Knee pain Encounter Details Date Type Department Care Team Description 09/06/2023 Office Visit [facility] [place] [address] [place] [address] Jeannette Lo MD [address] [place] [place] [address] Lipodermatosclerosis of both lower extremities*; Muscle weakness (generalized); Gait disturbance; Chronic pain of right knee; Chronic kidney disease, stage 3a (HCC) Allergies No known active allergiesdocumented as of [...] Date Smoking Tobacco: Never Smokeless Tobacco: Never Tobacco Cessation:Counseling Given: Not [...] Sign Reading Time Taken Comments Blood Pressure 148/62 09/06/2023 1:44 PM EDT Pulse 92 09/06/2023 1:44 PM EDT Temperature 36.5 C (97.7 F) 09/06/2023 1:44 PM ED T Respiratory Rate 18 09/06/2023 1:44 PM EDT Oxygen Saturation 94% 09/06/2023 1:44 PM EDT Inhaled Oxygen Concentration - - Weight 67.4 kg (148 lb 8 oz) 09/06/2023 1:44 PM EDT Height 157.5 cm (5' 2") 09/06/2023 1:44 PM EDT Body Mass Index 27.16 09/06/2023 1:44 PM EDT documented in this encounter Progress Notes * Jeannette Lo MD - 09/06/2023 1:50 PM EDT ASSESSMENT / PLAN: Karina Howard is a 82 year old female with PMHx depression / anxiety / lipdermatosclerosis / hypothyroidism / GERD / urin incontinence - here for recheck She is adherent with her chronic medications, recommend continue oxybutinin, atarax, preservision, triamcinolone cream, lamictal, paxil, omeprazole, and synthroid. Recent flare up of her lipodermatosclerosis - she follows with dermatology. Skin lesion on right upper thigh - benign Recommend f/u ortho for knee pain Due for flu If applicable Starting age 19: Screening for Cholesterol every five years beginning at 20 years of age, chlamydiafor sexually active women under 25 years of age, HIV Starting age 40: Screening for Cholesterol, diabetes, colorectal cancer beginning at 50 years, HIV Follow Up: Return in about 6 months (around 03/07/2024) for Labs Today. | For: Labs Today Lipodermatosclerosis of both lower extremities (Primary) Muscle weakness (generalized) - COMPREHENSIVE METABOLIC PANEL; Future; Expected date: 09/06/2023 - CBC WITH WBC DIFFERENTIAL; Future; Expected date: 09/06/2023 Gait disturbance - COMPREHENSIVE METABOLIC PANEL; Future; Expected date: 09/06/2023 - CBC WITH WBC DIFFERENTIAL; Future; Expected date: 09/06/2023 Chronic pain of right knee - XR KNEE 4 OR MORE VIEWS - ORTHOPAEDICS REFERRAL OP - COMPREHENSIVE METABOLIC PANEL; Future; Expected date: 09/06/2023 - CBC WITH WBC DIFFERENTIAL; Future; Expected date: 09/06/2023 Chronic kidney disease, stage 3a (HCC) - ALBUMIN / CREATININE RATIO, URINE; Future; Expected date: 09/06/2023 Follow Up: Return in about 6 months (around 03/07/2024) for Labs Today. | For: Labs Today If needed, prefers contact by: Ok to leave message on phone: SUBJECTIVE: Nursing Notes: Y[facility]aira Gomez [facility] 09/06/23 1345 Signed Karina Howard is a 82 year old female who presents today for Chief Complaint Patient presents with Follow Up Knee pain HPI: Karina Howard is a 82 year old female. Here for recheck. 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 Labs revealed low calcium and elev liver enzymes. 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 OBJECTIVE: BP 148/62 (BP Site: Right Arm, BP Position: Sitting, BP Cuff Size: Regular) | Pulse 92 | Temp 36.5 C (97.7 F) (Temporal Artery) | Resp 18 | Ht 1.575 m (5' 2") | Wt 67.4 kg (148 lb 8 oz) | SpO2 94% | BMI 27.16 kg/m | BSA 1.72 m Vitals reviewed and is normotensive / afebrile / and not tachycardic General: No acute distress. Neuro: Alert Pleasant & interactive. Respiratory: Good inspiratory effort, no labored breathing. CTAB CV: RRR no M R G MSK: no swelling or erythema of right knee joint : small benign appearing SK on right proximal thigh HEENT: Conjunctivae appear clear. No swelling noted face or lips. Skin: No rash visible on exposed skin areas, normal coloration & appears dry. Psych: Normal affect. Fluent speech. Jeannette Lo MD [address] [address] There are no Patient Instructions on file for this visit. documented in this encounter Nursing Notes * MARIANO Hernandez - 09/06/2023 1:44 PM EDT Karina Howard is a 82 year old female who presents today for Chief Complaint Patient presents with Follow Up Knee pain documented in this encounter Plan of Treatment Upcoming Encounters Date Type Specialty Care Team Description 09/14/2023 Office Visit Orthopedics Rachell Mao MD [address] [place] [address] Pending Results Name Type Priority Associated Diagnoses Date /Time COMPREHENSIVE METABOLIC PANEL Lab Routine Muscle weakness (generalized) Gait disturbance Chronic pain of right knee 09/06/2023 2:27 PM EDT CBC WITH WBC DIFFERENTIAL Lab Routine Muscle weakness (generalized) Gait disturbance Chronic pain of right knee 09/06/2023 2:27 PM EDT Scheduled Orders Name Type Priority Associated Diagnoses Orde r Schedule XR KNEE 4 OR MORE VIEWS Medical Imaging Routine Chronic pain of right knee Ordered: 09/06/2023 COMPREHENSIVE METABOLIC PANEL Lab Routine Muscle weakness (generalized) Gait disturbance Chronic pain of right knee Expected: 09/06/2023 (Approximate), Expires: 09/05/2024 CBC WITH WBC DIFFERENTIAL Lab Routine Muscle weakness (generalized) Gait disturbance Chronic pain of right knee Expected: 09/06/2023 (Approximate), Expires: 09/06/2024 ALBUMIN / CREATININE RATIO, URINE Lab Routine Chronic kidney disease, stage 3a (HCC) Expected: 09/06/2023 (Approximate), Expires: 09/05/2024 Scheduled Referrals Name Type Priority Associated Diagnoses Order Schedule ORTHOPAEDICS REFERRAL OP Referral Within 30 days (routine) Chronic pain of right knee Ordered: 09/06/2023 Health Maintenance Due Date Last Done Comments DXA Scan 1940 Albumin/Creatinine Ratio 1958 CKD PHOS USE SMARTSET 98869 1959 Depression Screening 05/18/2023 05/18/2022 COVID-19 Vaccine ( season) 2023 05/11/2022, 11/18/2021, 04/29/2021, Additional history exists Influenza Vaccine (FLU shot) (#1) 2023 GFR 09/16/2023 03/17/2023, 03/0 12/2022, 07/15/2022, Additional history exists CKD HGB USE SMARTSET 83011 03/17/202403/17, 01/27/2023, 07/15/2022, Additional history exists TSH 03/17/2024 03/17/2023, 03/12/2022, 07/15/2022, Additional history exists DTaP,Tdap,and Td Vaccines [...] Diagnosis Lipodermatosclerosis of both lower extremities- Primary Muscle weakness (generalized) Gait disturbance Abnormality of gait Chronic pain of right knee Chronic kidney disease, stage 3a (HCC) documented in this encounter Care Teams Manager Business Information Relationship Specialty Start Date End Date Jeannette Lo MD [address] [place] [address] PCP - General Family Medicine 09/25/22 documented as of this encounter
--- OUTSIDE RECORDS SUMMARY | 2023-11-12 16:46 | External Medical Summary | Summary of Care ---
Author Name Unknown Organization [facility] Address [address] [place] [address] Phone [phone] Care Team Providers Care Senior Android Software Engineer Name Role Phone Jeannette Lo MD Primary Care Provid er Encounter Details Date Type Department Care Team (Late st Contact Info) Description 09/27/2023 Telephone [facility] [address] [place] [address] Jeannette Lo MD [address] [place] [address] Allergies No known active allergiesdocumented as of this encounter (statuses as of 09/27/2023) Medications Medication Sig Dispensed Refills Start Date [...] as of this encounter (statuses as of 09/27/2023) Active Problems Problem Noted Date Diagnosed Date [...] as of this encounter (statuses as of 09/27/2023) Resolved Problems Problem Noted Date Diagnosed Date Resolved Date Atrial fibrillation 04/02/2021 02/29/20 documented as of this encounter (statuses as of 09/27/2023) Immunizations Name Administration Dates Next Due COVID-19 [...] = 0.6 oz pur e alcohol) Sex and Gender Information Value Date Recorded [...] Description 03/13/2024 1:20 PM EDT Office Visit [facility] [address] [place] [address] Jeannette Lo MD [address], [place] [id number] Scheduled Orders Name Type Priority Associated Diagnoses Orde r Schedule HEMOGLOBIN A1C Lab Routine Hyperglycemia Expected: 03/27/2024 (Approximate), Expires: 10/27/2024 COMPREHENSIVE METABOLIC PANEL Lab Routine Elevated liver enzymes Expected: 03/27/2024 (Approximate), Expires: 10/27/2024 Health Maintenance Due Date Last Done Comments DXA Scan 1940 Albumin/Creatinine Ratio 1958 CKD PHOS USE SMARTSET 11156 1959 Depression Screening 05/18/2023 05/18/2022 COVID-19 Vaccine ( season) 2023 05/11/2022, 11/18/2021, 04/29/2021, Additional history exists Influenza Vaccine (FLU shot) (#1) 2023 GFR 03/07/2024 09/06/2023, /, 01/27/2023, Additional history exists TSH 03/17/2024 03/17/2023, 03/0 12/2022, 07/15/2022, Additional history exists CKD HGB USE SMARTSET 24349 09/06/202409/06, 09/06/2023, 03/17/2023, Additional history exists DTaP,Tdap,and [...] as of this encounter Visit Diagnoses Diagnosis Hyperglycemia- Primary Other abnormal glucose Elevated liver enzymes Nonspecific elevation of levels of transaminase or lactic acid dehydrogenase (LDH) documented in this encounter Care Teams Senior Android Software Engineer Relationship Specialty Start Date End Date Jeannette Lo MD [address] [place] [address] PCP - General Family Medicine 09/25/22 documented as of this encounter
--- NOTE | 2023-11-12 17:14 | Emergency Department Note ---
History of Present Illness General Chief complaint: Leg Injury/Pain Time Seen by Provider: 11/12/23 16:56 Source: patient, EMS, RN notes reviewed and old records reviewed (I have reviewed a admission and discharge summary from her recent hospitalization 2022 for cellulitis) Mode of arrival: EMS Limitations: no limitations History of Present Illness This patient is a an 83-year-old female who has a history of recurrent cellulitis and stasis dermatitis among other medical problems, comes in after having redness and swelling and warmth of her left leg. She said normally both of her legs are mildly pinkish but over the last day or so the left one is got increasing swollen and red and warm. No fever. no injury .denies chest pain, shortness of breath. no numbness or weakness. no abdominal pain no systemic complaints. Home Medications Medication Instructions Recorded Confirmed Type levothyroxine 75 mcg tablet 75 mcg PO DAILYBB 08/16/18 11/12/23 History omeprazole 20 mg capsule,delayed 20 mg PO DAILYBB 08/16/18 11/12/23 History release vit C 250 mg-vit E 90 mg-zinc 40 1 tab PO BID 03/28/21 11/12/23 History mg-copper 1 gv-wyhlyo-wxrbqg capsule (PreserVision AREDS-2) lamotrigine 200 mg tablet 200 mg PO HS 01/08/22 11/12/23 History oxybutynin chloride 5 mg tablet 2.5 mg PO BID 01/06/23 11/12/23 History hydroxyzine HCl 10 mg tablet 0 mg PO BID 03/28/23 11/12/23 History hydroxyzine HCl 10 mg tablet 0 mg PO HS 03/28/23 11/12/23 History melatonin 10 mg tablet 10 mg PO HS PRN Sleep 03/28/23 11/12/23 History nystatin 100,000 unit/gram topical 1 applic topical BID PRN 03/28/23 11/12/23 History powder excoriation peg 400-propylene glycol 0.4 %-0.3 1 drp ophthalmic (eye) 6XD PRN Dry 03/28/23 11/12/23 History % eye gel drops (Systane Gel) Eyes simethicone 125 mg chewable tablet 125 mg PO QID PRN GAS DISCOMFORT 03/28/23 11/12/23 History furosemide 20 mg tablet 20 mg PO DAILY 06/08/23 11/12/23 History acetaminophen 650 mg 650 mg PO TID PRN Pain 06/23/23 11/12/23 History tablet,extended release (Tylenol 8 Hour) calcium carbonate 400 mg calcium 1,000 mg PO QID PRN Indigestion 06/23/23 11/12/23 History (1,000 mg) chewable tablet (Tums Ultra) calcium carbonate 600 mg-vitamin 1 tab PO DAILY 06/23/23 11/12/23 History D3 10 mcg (400 unit) tablet (Calcium 600 + D(3)) hydroxyzine HCl 10 mg tablet 0 mg PO UD PRN Anxiety 06/23/23 11/12/23 History multivitamin (Daily-Priscila tablet) 1 tab PO DAILY 06/23/23 11/12/23 History omega 2-ipa-vqz-fish oil 1,200 mg 1 cap PO QAM 06/23/23 11/12/23 History (144 mg-216 mg) capsule (Fish Oil) paroxetine HCl 30 mg tablet (Paxil) 30 mg PO HS 06/23/23 11/12/23 History triamcinolone acetonide 0.1 % 1 applic topical BID 06/29/23 11/12/23 History topical cream guaifenesin 600 mg tablet, 600 mg PO DAILY PRN Congestion 11/12/23 11/12/23 History extended release 12 hr (Mucinex) ibuprofen 400 mg tablet 400 mg PO TID PRN Pain 11/12/23 11/12/23 History Allergies Allergy/AdvReac Type Severity Reaction Status Date / Time No Known Allergies Allergy Verified 11/12/23 18:27 Past Med/Surg History Medical History Aortic stenosis Degenerative arthritis Depression with anxiety Paroxysmal atrial fibrillation with RVR Heart murmur Patient will be scheduled for an echocardiogram she is no recollection of being told that she had a heart murmur Weakness Rib fracture Postherpetic neuralgia Cellulitis Anxiety Hypothyroidism Surgical History S/P cataract surgery Family History Father , age 76 of metastatic prostate cancer Cancer Prostate cancer Heart disease Mother , age 93 Rheumatoid arthritis Social History Smoking Status: Never smoker Second Hand Exposure: No; Do You Dip or Chew Tobacco: No; Hx Alcohol Use: No Hx Substance Use: No Preferred Language: Hungarian Communication Ability: Effective Solid Waste Analyst Required: No Beliefs That Will Affect Care: None marital status: Single Current Living Situation: Custodial Current Living Situation Comment: [facility] current occupational status: retired 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57 How many Children do You have: 0 Other Information That Helps Us Care for You: No Feels Safe at Home: Yes Safety Concerns: Feels Safe At This Time Assistive Devices: Walker Review of Systems A total of 10 systems reviewed and were otherwise negative Physical Exam Vital Signs Vital Signs - 24 hr 11/12/23 16:51 11/12/23 16:53 11/12/23 17:00 Temperature 36.4 C L Temperature Source Oral Pulse Rate 83 85 87 Pulse Rate from SpO2 Sensor 85 89 Respiratory Rate 16 22 19 Respiratory Effort / Characteristics Non-Labored Spontaneous Respiratory Depth Normal Blood Pressure 137/61 137/61 Blood Pressure Mean 86 86 Pulse Oximetry 97 99 97 Oxygen Delivery Method Room Air Sepsis Recent Fever Within 48 Hours No Sepsis New/Unexplained Change in Mental Status No Sepsis Action Taken by Nursing No Action Required 11/12/23 17:08 11/12/23 17:30 11/12/23 17:30 Temperature Temperature Source Pulse Rate 82 83 83 Pulse Rate from SpO2 Sensor Respiratory Rate 18 18 Respiratory Effort / Characteristics Respiratory Depth Blood Pressure Blood Pressure Mean Pulse Oximetry 98 Oxygen Delivery Method Room Air Sepsis Recent Fever Within 48 Hours Sepsis New/Unexplained Change in Mental Status Sepsis Action Taken by Nursing 11/12/23 18:00 11/12/23 18:10 11/12/23 18:15 Temperature Temperature Source Pulse Rate 84 Pulse Rate from SpO2 Sensor Respiratory Rate 22 Respiratory Effort / Characteristics Respiratory Depth Blood Pressure 91/63 L 91/63 L 125/63 Blood Pressure Mean 72 77 91 Pulse Oximetry 91 Oxygen Delivery Method Sepsis Recent Fever Within 48 Hours Sepsis New/Unexplained Change in Mental Status Sepsis Action Taken by Nursing 11/12/23 18:15 11/12/23 18:30 11/12/23 18:44 Temperature Temperature Source Pulse Rate 80 84 79 Pulse Rate from SpO2 Sensor Respiratory Rate 23 24 22 Respiratory Effort / Characteristics Respiratory Depth Blood Pressure 125/63 110/62 128/54 L Blood Pressure Mean 83 78 78 Pulse Oximetry 92 Oxygen Delivery Method Sepsis Recent Fever Within 48 Hours Sepsis New/Unexplained Change in Mental Status Sepsis Action Taken by Nursing 11/12/23 19:00 11/12/23 19:08 11/12/23 19:15 Temperature Temperature Source Pulse Rate 94 H 87 89 Pulse Rate from SpO2 Sensor 90 Respiratory Rate 20 22 29 H Respiratory Effort / Characteristics Respiratory Depth Blood Pressure 112/44 L 109/47 L 118/52 L Blood Pressure Mean 66 67 74 Pulse Oximetry 100 Oxygen Delivery Method Sepsis Recent Fever Within 48 Hours Sepsis New/Unexplained Change in Mental Status Sepsis Action Taken by Nursing 11/12/23 19:30 11/12/23 19:45 11/12/23 20:00 Temperature Temperature Source Pulse Rate 84 87 88 Pulse Rate from SpO2 Sensor 84 Respiratory Rate 23 20 18 Respiratory Effort / Characteristics Respiratory Depth Blood Pressure 116/56 L 130/73 117/61 Blood Pressure Mean 76 92 79 Pulse Oximetry 91 Oxygen Delivery Method Sepsis Recent Fever Within 48 Hours Sepsis New/Unexplained Change in Mental Status Sepsis Action Taken by Nursing General: Well developed well nourished [id number]-tlcrdckmh older female who appears in no acute distress, breathing comfortably on room air. Normal speech HEENT: Normal cephalic atraumatic. Pupils are equal round and reactive to light. Extraocular movements are intact. Oropharynx is pink with moist mucous membranes. No swelling of the mouth lips or tongue. Neck: Supple with a midline trachea. No meningeal signs or stiffness, no JVD or bruits. No Stridor. Chest: Clear to auscultation bilaterally. No wheezes or rhonchi. No increased work of breathing. Heart: Regular rate and rhythm without murmurs or gallops. Abdomen: Soft nontender, nondistended without rebound guarding or rigidity. Extremities: He has some mild pink discoloration of the right guerrero and lower leg. The left is much more red and swollen and there is an edge to this in the upper anterior guerrero. No crepitus. No drainage. Spine/Back. Non tender to palpation. No CVA tenderness Skin: Good turgor without rashes. Neurologic exam: Normal motor and sensation in the legs distally. Normal capillary refill. Course Administered Medications Discontinued Medications Ceftriaxone Sodium (Rocephin) 2,000 mg in 50 mls @ 100 mls/hr IV NOW STA Stop: 11/12/23 17:44 Last Infusion: 11/12/23 19:18 Dose: Infused Documented By: Admin: 11/12/23 18:41 Dose: 100 mls/hr Documented By: ANA Sodium Chloride (Nss) 250 mls @ 999 mls/hr IV .Q16M ONE Stop: 11/12/23 18:48 Last Infusion: 11/12/23 18:59 Dose: Infused Documented By: Admin: 11/12/23 18:41 Dose: 999 mls/hr Documented By: ANA Medical Decision Making Differential Diagnosis Cellulitis, DVT, sepsis, stasis dermatitis, electrolyte or metabolic abnormality Medical Records Attestation: I reviewed the patient's medical records. Home Medications Current Medication List: was personally reviewed by me Laboratory Data Attestation: I reviewed the patient's lab results. 11/12/23 17:30 11/12/23 17:30 Lab Results 11/12/23 11/12/23 11/12/23 Range/Units 17:30 18:36 19:22 WBC 13.12 H (4.8-10.8) K/ul RBC 4.35 (4.20-5.40) M/uL Hgb 12.3 (12.0-16.0) g/dl Hct 38.7 (37.0-47.0) % MCV 89.0 (80.0-100.0) fL MCH 28.3 (25.0-34.0) pg MCHC 31.8 L (32.0-36.0) g/dL RDW Std Deviation 44.5 (36.4-46.3) fL RDW Coeff of Benita 13.6 (11.5-14.5) % Plt Count 293 (130-400) K/uL MPV 8.6 L (9.4-12.4) fL Immature Gran % (Auto) 0.5 % Neut % (Auto) 71.9 % Lymph % (Auto) 15.3 % [place] % (Auto) 11.0 % Eos % (Auto) 1.1 % Baso % (Auto) 0.2 % Neut # (Auto) 9.44 H (1.40-6.50) K/uL Lymph # (Auto) 2.01 (1.20-3.40) K/uL [place] # (Auto) 1.44 H (0.11-0.59) K/uL Eos # (Auto) 0.14 (0.00-0.50) K/uL Baso # (Auto) 0.03 (0.00-0.20) K/uL Immature Gran # (Auto) 0.06 (0.01-0.20) K/uL Sodium 138 (136-145) mmol/L Potassium 3.8 (3.5-5.1) mmol/L Chloride 100 (98-107) mmol/L Carbon Dioxide 32 (21-32) mmol/L Anion Gap 6 (3-11) BUN 25 H (6-23) mg/dl Creatinine 1.37 H (0.6-1.2) mg/dl Est Cr Clr Drug Dosing 28.3 ml/min Est GFR ( Amer) 41.5 ml/min Est GFR (Non-Af Amer) 35.8 ml/min BUN/Creatinine Ratio 18.2 (10-20) Glucose 140 H (70-99(Fasting)) mg/dl Lactate 1.2 (0.4-2.0) mmol/L Calcium 9.3 (8.6-10.3) mg/dl Magnesium 2.1 (1.7-2.4) mg/dl Total Bilirubin 0.6 (0.2-1.0) mg/dl Direct Bilirubin 0.1 (0-0.2) mg/dl AST 58 H (13-39) U/L ALT 64 H (7-52) U/L Alkaline Phosphatase 194 H (34-104) U/L Total Protein 7.2 (6.0-8.3) gm/dl Albumin 4.0 (3.4-5.0) gm/dl Procalcitonin < 0.05 (0-0.5) ng/ml Nasal Screen MRSA (PCR) Positive A (Negative) SARS-CoV-2, RNA, NAAT NEGATIVE (NEGATIVE) Imaging Data Attestation: I personally reviewed and interpreted this imaging study as follows: My Impression: Chest x-raycardiomegaly but no overt CHF. No pneumonia or pneumothorax. Atelectasis in the base Radiologist's Impression: Chest X-Ray 11/12/23 17:06 SINGLE VIEW CHEST CLINICAL HISTORY: Sepsis FINDINGS: An AP, portable, upright chest radiograph is compared to study dated 06/29/2023. The examination is degraded by portable technique and patient rotation. The heart is enlarged noting atherosclerotic calcification of the thoracic aorta. The pulmonary vasculature is noncongested. Chronic interstitial thickening is similar to previous. Bibasilar opacities likely represent scarring/atelectasis. No large pleural effusion or pneumothorax is seen. The skeletal structures are osteopenic. There is chronic posttraumatic deformity and postsurgical change noted in the left proximal humerus.. IMPRESSION: 1. Cardiomegaly without radiographic evidence of congestive failure. 2. Bibasilar opacities likely represent scarring/atelectasis. Correlate clinically. ACT 112: Negative or not required by law. Electronically signed by: Jono Duvall M.D. 11/12/2023 5:53 PM Venous Doppler Study 11/12/23 17:07 ULTRASOUND LEFT LOWER EXTREMITY VENOUS CLINICAL HISTORY: Erythema of the left calf. COMPARISON STUDY: Bilateral lower extremity venous ultrasound dated 03/28/2023. TECHNIQUE: Real-time, grayscale, and color Doppler sonography of the deep veins of the left lower extremity was performed from the inguinal crease to the calf. Compression and augmentation were utilized. FINDINGS: There is no sonographic evidence of deep venous thrombosis identified in the left lower extremity. The common femoral, superficial femoral, and popliteal veins are patent and normally compressible. The greater saphenous vein and the profunda femoris vein at the junction with the common femoral vein are clear. The visualized calf veins are patent. Prominent left inguinal lymph nodes are nonspecific and likely reactive. IMPRESSION: There is no sonographic evidence of deep venous thrombosis identified in the left lower extremity. ACT 112: Negative or not required by law. Electronically signed by: Jono Duvall M.D. 11/12/2023 9:05 PM ECG Data Attestation: I personally reviewed and interpreted this ECG as follows: Indication: + weakness Rate (beats per minute): 81 Rhythm: + normal sinus ECG Intervals/blocks: + Normal QRS and + Normal QT ECG [place]: + Normal ECG ST segments: + Normal ST segments ECG Findings: no PACs or no PVCs Comparison ECG Date: from (06/29/2023) Change: no significant change MDM Narrative This patient comes in as described above. She was placed in room A2. She has a history of recurrent cellulitis as well as stasis dermatitis. She has no ulceration. I did a full sepsis type workup that included multiple blood testing, blood cultures, chest x-ray, ultrasound of her leg, EKG, etc. She was placed on a director of cardiac rehabilitation as well. Although she does have a history of stasis dermatitis this is definitely asymmetrical and I think has a cellulitis in the left leg on top of that. Her white count is mildly elevated. Lactic acid is not. Chest x-ray has some atelectasis but no definite infiltrates. EKG shows no ischemic changes. She has no significant electrolyte or metabolic abnormalities, she does have baseline renal insufficiency. I did discuss the case with Jame our ED pharmacist who recommended IV Rocephin and IV vancomycin. I did order the IV Rocephin 2 g IV. The hospital did order the vancomycin when the patient was admitted. She was also given a 250 cc IV normal saline bolus, I was concerned about fluid overload/CHF. Her lactic acid is not significantly elevated white count is mildly elevated. her EKG shows no ischemic changes or ectopy. COVID testing was negative. Ultrasound the leg was negative. She will be admitted for further treatment and evaluation for cellulitis. Continuous cardiac monitoring: Orders placed in EMR for continuous cardiac monitoring: Upon my evaluation patient noted to be in normal sinus rhythm with a rate of 80 Impression & Plan Cellulitis, Stasis dermatitis, Chronic renal insufficiency, Lab test negative for COVID-19 virus Discharge Plan Visit Data Chief Complaint: Leg Injury/Pain ED Provider: Destin Oro Discharge Problem: Cellulitis, Stasis dermatitis, Chronic renal insufficiency, Lab test negative for COVID-19 virus Forms Stand Alone Forms: [facility] Prescriptions Prescriptions: No Action oxybutynin chloride 5 mg tablet 2.5 mg PO BID furosemide 20 mg tablet 20 mg PO DAILY levothyroxine 75 mcg tablet 75 mcg PO DAILYBB omeprazole 20 mg capsule,delayed release(DR/EC) 20 mg PO DAILYBB lamotrigine 200 mg tablet 200 mg PO HS simethicone 125 mg Tablet,Chewable 125 mg PO QID PRN (Reason: GAS DISCOMFORT) nystatin 100,000 unit/gram Powder 1 applic TOPICAL BID PRN (Reason: excoriation) Rx Instructions: under bilateral breast hydroxyzine HCl 10 mg Tablet 0 mg PO BID Rx Instructions: Take 10mg by mouth twice DAILY AT 1100 & 1700 hydroxyzine HCl 10 mg Tablet 0 mg PO HS Rx Instructions: Take 20mg by mouth at AT 2300 Systane Gel 0.4-0.3 % Drops,Gel 1 drp OPHTHALMIC (EYE) 6XD PRN (Reason: Dry Eyes) melatonin 10 mg Tablet 10 mg PO HS PRN (Reason: Sleep) omega 1-opj-xte-fish oil [Fish Oil] 1,200 (144-216) mg Capsule 1 cap PO QAM multivitamin [Daily-Priscila] Tablet 1 tab PO DAILY calcium carbonate-vitamin D3 [Calcium 600 + D(3)] 600 mg-10 mcg (400 unit) Tablet 1 tab PO DAILY paroxetine HCl [Paxil] 30 mg Tablet 30 mg PO HS hydroxyzine HCl 10 mg tablet 0 mg PO UD PRN (Reason: Anxiety) Rx Instructions: take 10-20mg by mouth as needed for anxiety acetaminophen [Tylenol 8 Hour] 650 mg Tablet Extended Release 650 mg PO TID MDD 3 GRAMS APAP/24 HOURS PRN (Reason: Pain) calcium carbonate [Tums Ultra] 400 mg calcium (1,000 mg) Tablet,Chewable 1,000 mg PO QID PRN (Reason: Indigestion) PreserVision AREDS-2 250-90-40-1 mg Capsule 1 tab PO BID triamcinolone acetonide 0.1 % Cream 1 applic TOPICAL BID Rx Instructions: APPLY TO BILAT. SHINS TWICE DAILY FOR IRRITATION, NOTIFY MD AFTER 3 DAYS. ibuprofen 400 mg Tablet 400 mg PO TID PRN (Reason: Pain) guaifenesin [Mucinex] 600 mg Tablet Extended Release 12hr 600 mg PO DAILY MDD 2,400mg/24hr PRN (Reason: Congestion) Referrals Referrals: PCP,NO [Physician] - Discharge Problem: Cellulitis Qualifiers: Site of cellulitis: extremity Site of cellulitis of extremity: lower extremity Laterality: left Qualified Code(s): L03.116 - Cellulitis of left lower limb Chronic renal insufficiency Qualifiers: Chronic kidney disease stage: unspecified stage Qualified Code(s): N18.9 - Chronic kidney disease, unspecified
[2023-11-12] MEDS ORDERED: cefTRIAXone SODIUM 2,000 MG/50 ML BAG IV STA (17:15)
--- NOTE | 2023-11-12 17:54 | XRay Report ---
SINGLE VIEW CHEST CLINICAL HISTORY: Sepsis FINDINGS: An AP, portable, upright chest radiograph is compared to study dated 06/29/2023. The examinat ion is degraded by portable technique and patient rotation. The heart is enlarged noting atherosclero tic calcification of the thoracic aorta. The pulmonary vasculature is noncongested. Chronic interstit ial thickening is similar to previous. Bibasilar opacities likely represent scarring/atelectasis. No large pleural effusion or pneumothorax is seen. The skeletal structures are osteopenic. 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 IMPRESSION: 1. Cardiomegaly without radiographic evidence of congestive failure. 2. Bibasilar opacities likely represent scarring/atelectasis. Correlate clinically. ACT 112: Negative or not required by law. Electronically signed by: Jono Duvall M.D. 11/12/2023 5:53 PM
[2023-11-12 18:08] LABS: Basophils # (auto) 0.03 K/uL (0.00-0.20); Basophils % (auto) 0.2 %; Eosinophils # (auto) 0.14 K/uL (0.00-0.50); Eosinophils % (auto) 1.1 %; Hematocrit (blood only) 38.7 % (37.0-47.0); Hemoglobin 12.3 g/dl (12.0-16.0); Immature Granulocytes # (auto) 0.06 K/uL (0.01-0.20); Immature Granulocytes % (auto) 0.5 %; Lymphocytes # (auto) 2.01 K/uL (1.20-3.40); Lymphocytes % (auto) 15.3 %; Mean Corpuscular Hemoglobin 28.3 pg (25.0-34.0); Mean Corpuscular Hgb Conc 31.8 g/dL (32.0-36.0); Mean Platelet Volume 8.6 fL (9.4-12.4); Monocytes # (auto) 1.44 K/uL (0.11-0.59); Neutrophils # (auto) 9.44 K/uL (1.40-6.50); Neutrophils % (auto) 71.9 %; Platelet Count 293 K/uL (130-400); RDW Coefficient of Variation 13.6 % (11.5-14.5); RDW Standard Deviation 44.5 fL (36.4-46.3); Red Blood Count 4.35 M/uL (4.20-5.40); White Blood Count 13.12 K/ul (4.8-10.8)
[2023-11-12 18:26] LABS: BUN Creatinine Ratio 18.2 (10-20); Bilirubin Direct 0.1 mg/dl (0-0.2); Bilirubin,Total 0.6 mg/dl (0.2-1.0); Calcium 9.3 mg/dl (8.6-10.3); Creatinine Clr Calc Pharmacy 28.3 ml/min; Est GFR (African American) 41.5 ml/min; Est GFR (Non-African American) 35.8 ml/min; Magnesium 2.1 mg/dl (1.7-2.4); Potassium 3.8 mmol/L (3.5-5.1); Total Protein 7.2 gm/dl (6.0-8.3)
[2023-11-12] MEDS ORDERED: SODIUM CHLORIDE 0.9% 250 ML IV ONE (18:33)
--- NOTE | 2023-11-12 20:48 | History & Physical Report ---
Date of Service November 12, 2023 Assessment & Plan (1) Sepsis: Plan: Patient is an 83-year-old female with past medical history of diastolic congestive heart failure, aortic stenosis, hypothyroidism, dermatitis stasis, and paroxysmal A-fib who presents to the hospital for the complaint of left lower extremity redness and pain. Suspect patient has left lower extremity cellulitis given history and physical exam. Patient has been given antibiotics and some fluid. Patient will be admitted for IV antibiotics and further management. -Admit to [facility], no telemetry indication at this time. -Source of infection is left lower extremity cellulitis with SIRS criteria of heart rate above 90, respiration rate greater than 20, and white blood cell count greater than 11. -Initially given only 250 cc of fluid, will give additional fluid, however, will not go to 30 cc/kg due to history of diastolic heart failure, cardiomegaly on chest XR, and currently has acceptable blood pressures with good clinical appearance as to not risk volume overload -Additional dose of 500 cc of LR ordered -Initially given Rocephin, but MRSA nares positive, will add vancomycin -Contact precautions -Blood cultures ordered and pending -Chest x-ray showing atelectasis without evidence of infectious process (2) Cellulitis: Plan: - See above (3) Diastolic heart failure: Plan: - Last echocardiogram done in May of this year showing ejection fraction of 60 to 65% -Hold morning Lasix as creatinine is mildly elevated and appears mildly dry -Additional fluid bolus as above (4) Elevated liver enzymes: Plan: - Chronic and noted from previous admission -Unsure if due to current infection but does seem improved from previous admission -Liver ultrasound showing normal liver in May -No need to repeat at this time, recheck CMP in am (5) Hypothyroidism: Plan: - Continue levothyroxine (6) Anxiety: Plan: - Continue hydroxyzine 10 mg twice daily -Continue lamotrigine 200 mg at night Plan Disposition: Admit to [facility] for IV antibiotics DVT prophylaxis: Heparin Diet: Heart healthy, low-sodium CODE STATUS: DNR/DNI History of Present Illness Chief Complaint: Cellulitis Primary Care Provider: CLAYTON Patient is an 83-year-old female with past medical history of diastolic congesti ve heart failure, aortic stenosis, hypothyroidism, dermatitis stasis, and paroxysmal A-fib who presents to the hospital for the complaint of left lower extremity redness and pain. Patient reports for the past 36 hours, she has developed left lower extremity erythema and tenderness to palpation. She has a recurrent history of previous cellulitis as well as dermatitis stasis flareups. Her most recent admission was back in July where she had bilateral cellulitis of the lower extremities. Otherwise only has the other complaint of intermittent nausea but has been able to eat without vomiting. No shortness of breath or chest pain. No diarrhea. No headaches. She does wear compression stockings routinely and when the aides put her stockings on, they do sometimes cause bleeding on her legs because of their nails and how tight the stockings are. No recent falls. No other complaints at this time. Patient evaluated by ED provider. Labs are significant for Elevated white blood cell count at 13.1, creatinine 1.37, normal lactate, mildly elevated liver enzymes, normal procalcitonin, and positive MRSA nares. Chest x-ray suspicious for atelectasis without any evidence of acute process. Cardiomegaly is also noted without pulmonary edema. Venous Doppler study was ordered but was pending at the time of interview. Patient was given a small bolus of normal saline and was also given a dose of Rocephin. Hospitalist service was then consulted for admission. Allergies Allergy/AdvReac Type Severity Reaction Status Date / Time No Known Allergies Allergy Verified 11/12/23 18:27 Home Medications Medication Instructions Recorded Confirmed Type levothyroxine 75 mcg tablet 75 mcg PO DAILYBB 08/16/18 11/12/23 History omeprazole 20 mg capsule,delayed 20 mg PO DAILYBB 08/16/18 11/12/23 History release vit C 250 mg-vit E 90 mg-zinc 40 1 tab PO BID 03/28/21 11/12/23 History mg-copper 1 [id number] capsule (PreserVision AREDS-2) lamotrigine 200 mg tablet 200 mg PO HS 01/08/22 11/12/23 History oxybutynin chloride 5 mg tablet 2.5 mg PO BID 01/06/23 11/12/23 History hydroxyzine HCl 10 mg tablet 0 mg PO BID 03/28/23 11/12/23 History hydroxyzine HCl 10 mg tablet 0 mg PO HS 03/28/23 11/12/23 History melatonin 10 mg tablet 10 mg PO HS PRN Sleep 03/28/23 11/12/23 History nystatin 100,000 unit/gram topical 1 applic topical BID PRN 03/28/23 11/12/23 History powder excoriation peg 400-propylene glycol 0.4 %-0.3 1 drp ophthalmic (eye) 6XD PRN Dry 03/28/23 11/12/23 History % eye gel drops (Systane Gel) Eyes simethicone 125 mg chewable tablet 125 mg PO QID PRN GAS DISCOMFORT 03/28/23 11/12/23 History furosemide 20 mg tablet 20 mg PO DAILY 06/08/23 11/12/23 History acetaminophen 650 mg 650 mg PO TID PRN Pain 06/23/23 11/12/23 History tablet,extended release (Tylenol 8 Hour) calcium carbonate 400 mg calcium 1,000 mg PO QID PRN Indigestion 06/23/23 11/12/23 History (1,000 mg) chewable tablet (Tums Ultra) calcium carbonate 600 mg-vitamin 1 tab PO DAILY 06/23/23 11/12/23 History D3 10 mcg (400 unit) tablet (Calcium 600 + D(3)) hydroxyzine HCl 10 mg tablet 0 mg PO UD PRN Anxiety 06/23/23 11/12/23 History multivitamin (Daily-Priscila tablet) 1 tab PO DAILY 06/23/23 11/12/23 History omega 5-xps-igb-fish oil 1,200 mg 1 cap PO QAM 06/23/23 11/12/23 History (144 mg-216 mg) capsule (Fish Oil) paroxetine HCl 30 mg tablet (Paxil) 30 mg PO HS 06/23/23 11/12/23 History triamcinolone acetonide 0.1 % 1 applic topical BID 06/29/23 11/12/23 History topical cream guaifenesin 600 mg tablet, 600 mg PO DAILY PRN Congestion 11/12/23 11/12/23 His tory extended release 12 hr (Mucinex) ibuprofen 400 mg tablet 400 mg PO TID PRN Pain 11/12/23 11/12/23 History Past Med/Surg History Medical History Aortic stenosis Degenerative arthritis Depression with anxiety Paroxysmal atrial fibrillation with RVR Heart murmur Patient will be scheduled for an echocardiogram she is no recollection of being told that she had a heart murmur Weakness Rib fracture Postherpetic neuralgia Cellulitis Anxiety Hypothyroidism Surgical History S/P cataract surgery Family History Father , age 76 of metastatic prostate cancer Cancer Prostate cancer Heart disease Mother , age 93 Rheumatoid arthritis Social History Smoking Status: Never smoker Second Hand Exposure: No; Do You Dip or Chew Tobacco: No; Hx Alcohol Use: No Hx Substance Use: No Preferred Language: Guatemalan Communication Ability: Effective Medical Billing Service Required: No Beliefs That Will Affect Care: None marital status: Single Current Living Situation: [facility] Current Living Situation Comment: [facility] current occupational status: retired 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57 How many Children do You have: 0 Other Information That Helps Us Care for You: No Feels Safe at Home: Yes Safety Concerns: Feels Safe At This Time Assistive Devices: Walker Review of Systems Review of Systems: All systems reviewed & are unremarkable except as noted in HPI & below Physical Exam Constitutional: well developed, well nourished, cooperative and comfortable Eyes: + anicteric sclerae Neck: trachea midline, no thyromegaly Respiratory: normal respiratory effort, lungs clear to auscultation Cardiovascular: Rate/Rhythm: regular rate and regular rhythm Heart Sounds: + murmur (3/6 systolic) Vessels: no JVD Gastrointestinal (Abdomen): normal bowel sounds, soft, nontender, no hepatosplenomegaly Musculoskeletal: Head/Neck/Chest: normocephalic and head atraumatic Skin: There is a erythematous, hot, well-demarcated rash on the left lower extremity that spans from upper tibia to ankle. It blanches easily. There is erythema also noted on the right lower extremity, however, it is not hot to the touch and is not clearly demarcated. There is also evidence of dermatitis stasis bilaterally. Neurologic: moves all extremities Psychiatric: A+Ox3, euthymic affect Results & Data Results & Data Vital Signs (Past 12 Hours) Vital Signs Temp Pulse Resp BP Pulse Ox O2 Del Method 11/12/23 19:00 94 H 20 112/44 L 11/12/23 18:44 79 22 128/54 L 11/12/23 18:30 84 24 110/62 92 11/12/23 18:15 80 23 125/63 11/12/23 18:15 125/63 11/12/23 18:10 91/63 L 11/12/23 18:00 84 22 91/63 L 91 11/12/23 17:30 83 18 11/12/23 17:30 83 18 98 Room Air 11/12/23 17:08 82 11/12/23 17:00 87 19 137/61 97 11/12/23 16:53 85 22 99 11/12/23 16:51 36.4 C L 83 16 137/61 97 Room Air Code Status & VTE Plan VTE Prophylaxis Plan VTE Prophylaxis will be ordered: Yes Supervising Physician Co-Signing Physician Notes I have personally seen, evaluated and examined the patient. I have also personally discussed the management of the patient with the resident physician and I agree with the exam findings documented in the history and physical ex amination and the documented assessment and plan unless otherwise stated below. In general: Pleasant 83-year-old female who is very talkative and interactive. She is alert and oriented to person place and time. HEENT: Normocephalic atraumatic pupils are equal round and reactive to light bilaterally. No scleral icterus no conjunctival injection external auditory canals are patent septum is in the midline nose is without discharge oral mucosa is pink and moist without lesion. NECK: Supple no rigidity no lymphadenopathy no thyromegaly no carotid bruits no JVD no masses. HEART: Regular rate and rhythm I do not appreciate any ectopy or rub. No murmur. LUNGS: Clear to auscultation bilaterally and anteriorly with no evidence of adventitious sounds/wheezes rales or rhonchi. ABDOMEN: Soft nontender, no rebound, no peritoneal signs, positive bowel sounds, no appreciable organomegaly. EXTREMITIES: Intact, changes of chronic lower extremity venous stasis with superimposed cellulitis of the left lower extremity pretibial mid tibial distally. Warm to touch erythematous no active discharge. Pulses are palpable bilaterally. NEUROLOGICAL: Cranial nerves II through XII are grossly intact with no focal deficit elicited upon examination. No tremor. Assessment/plan: As described above. Please refer to orders for further planning. In short: 1 dose of Vanco in the ER was administered as well as Rocephin implemented will continue Rocephin therapy. Await MRSA screen. (2) Cellulitis Laterality: left Site of cellulitis: extremity Site of cellulitis of extremity: lower extremity Qualified Code(s): L03.116 - Cellulitis of left lower limb (5) Hypothyroidism Hypothyroidism type: acquired Qualified Code(s): E03.9 - Hypothyroidism, unspecified
[2023-11-12] MEDS ORDERED: LACTATED RINGER'S 500 ML IV ONE (21:00)
[2023-11-12] MEDS ORDERED: VANCOMYCIN CONSULT ACTIVE PRN ×2 (21:02→21:46)
[2023-11-12] MEDS ORDERED: VANCOMYCIN HCL 1,250 MG in SODIUM CHLORIDE 0.9% 250 ML IV STA (21:06)
--- NOTE | 2023-11-12 21:06 | Ultrasound Report ---
ULTRASOUND LEFT LOWER EXTREMITY VENOUS CLINICAL HISTORY: Erythema of the left calf. COMPARISON STUDY: Bilateral lower extremity venous ultrasound dated 03/28/2023. TECHNIQUE: Real-time, grayscale, and color Doppler sonography of the deep veins of the left lower ext remity was performed from the inguinal crease to the calf. Compression and augmentation were utilized . FINDINGS: There is no sonographic evidence of deep venous thrombosis identified in the left lower ext remity. The common femoral, superficial femoral, and popliteal veins are patent and normally compress ible. The greater saphenous vein and the profunda femoris vein at the junction with the common femora l vein are clear. The visualized calf veins are patent. Prominent left inguinal lymph nodes are nonsp ecific and likely reactive. IMPRESSION: There is no sonographic evidence of deep venous thrombosis identified in the left lower e xtremity. ACT 112: Negative or not required by law. Electronically signed by: Jono Duvall M.D. 11/12/2023 9:05 PM
--- NOTE | 2023-11-12 21:36 | Billing Data ---
Date of Service November 12, 2023 Coding Level of Care Code 33188 INT INP/OBS CARE
[2023-11-12] MEDS ORDERED: ONDANSETRON INJ 2 MG/ML 2 ML VIAL IV PRN (21:46)
[2023-11-12] MEDS ORDERED: POLYETHYLENE (MIRALAX) 17 GM PACK PO PRN (21:46)
[2023-11-12] MEDS ORDERED: MELATONIN 3 MG TAB PO PRN (21:53)
[2023-11-12] MEDS ORDERED: CALCIUM CARBONATE 500 MG CHEWABLE TAB PO PRN (21:56)
[2023-11-12] MEDS: lamoTRIgine 100 MG TAB PO SCH (22:16)
[2023-11-12] MEDS: HEPARIN SOD 5,000 UNIT/0.5 ML VIAL SQ SCH (22:17)
[2023-11-12] MEDS: PARoxetine HCL 20 MG TAB PO SCH (22:17)
[2023-11-12] MEDS: hydrOXYzine HCl 10 MG TAB PO SCH (22:17)
[2023-11-12] MEDS: CEROVITE ADV FORMULA TAB PO SCH (22:17)
[2023-11-12] MEDS: oxyBUTYnin chloride 5 MG TAB PO SCH (22:18)
[2023-11-13] MEDS: PANTOprazole 40 MG TAB PO SCH (05:30)
[2023-11-13] MEDS: LEVOTHYROXINE SODIUM 75 MCG TABLET PO SCH (05:30)
[2023-11-13 05:52] LABS: Hematocrit (blood only) 35.1 % (37.0-47.0); Hemoglobin 11.1 g/dl (12.0-16.0); Mean Corpuscular Hemoglobin 28.2 pg (25.0-34.0); Mean Corpuscular Hgb Conc 31.6 g/dL (32.0-36.0); Mean Corpuscular Volume 89.1 fL (80.0-100.0); Mean Platelet Volume 8.4 fL (9.4-12.4); Platelet Count 257 K/uL (130-400); RDW Coefficient of Variation 13.7 % (11.5-14.5); RDW Standard Deviation 44.8 fL (36.4-46.3); Red Blood Count 3.94 M/uL (4.20-5.40); White Blood Count 6.75 K/ul (4.8-10.8)
[2023-11-13 06:04] LABS: Albumin Globulin Ratio 1.4 (0.9-2); Albumin Level 3.3 gm/dl (3.4-5.0); BUN Creatinine Ratio 21.4 (10-20); Calcium 8.9 mg/dl (8.6-10.3); Creatinine Clr Calc Pharmacy 37.6 ml/min; Est GFR (African American) 58.6 ml/min; Est GFR (Non-African American) 50.6 ml/min; Globulin 2.4 gm/dl (2.5-4.0); Potassium 4.3 mmol/L (3.5-5.1); Total Protein 5.7 gm/dl (6.0-8.3)
[2023-11-13] MEDS ORDERED: VANCOMYCIN HCL 750 MG in SODIUM CHLORIDE 0.9% 500 ML IV SCH (08:00)
--- NOTE | 2023-11-13 08:38 | Hospitalist Progress Note ---
Date of Service November 13, 2023 Assessment & Plan (1) Sepsis: Plan: 83-year-old female with past medical history of diastolic congestive heart failure, aortic stenosis, hypothyroidism, dermatitis stasis, and paroxysmal A- fib who presents to the hospital for the complaint of left lower extremity redness and pain. Being treated for sepsis due to LLE cellulitis. Started on ceftriaxone and vancomycin (MRSA+ nares). LE duplex negative for DVT. -given judicious IV fluids on admission, now held -continue ceftriaxone, vancomycin. MRSA nares is positive but the cellulitis is nonpurulent and Less likely to be related to staph infection. is significantly improved tomorrow would be reasonable to stop vancomycin and treat with cephalosporin. she is quite elderly With multiple medical comorbidities so high risk and the cellulitis is severe therefore continued treatment with parenteral antibiotics is warranted. -leukocytosis improved today, WBC 6 (2) Cellulitis: Plan: - See above (3) Diastolic heart failure: Plan: - Last echocardiogram done in May of this year showing ejection fraction of 60 to 65% -Hold morning Lasix as creatinine is mildly elevated and appears mildly dry. Cr improved 1.37-->1.0. Underlying CKD stage 3 -Additional fluid bolus as above - consider resuming Lasix tomorrow (4) Elevated liver enzymes: Plan: - Chronic and noted from previous admission, unchanged overnight -Liver ultrasound showing normal liver in May (5) Hypothyroidism: Plan: - Continue levothyroxine (6) Anxiety: Plan: - Continue hydroxyzine 10 mg twice daily -Continue lamotrigine 200 mg at night Plan very low anion gap is noted. I think this is related to hypo proteinemia with low albumin and globulin DVT prophylaxis: Heparin sq bid CODE STATUS: DNR/DNI states she lives in assisted living at the [facility] and Anticipated Discharge Date Admission Date: November 12, 2023 Subjective Zhane is doing better today, her left lower leg remains very red but is much less painful than yesterday. She says she does have venous stasis disease with chronic bilateral lower extremity redness but the left is much redder than usual was painful and hot and very asymmetric. Physical Exam 2 Physical Exam: PHYSICAL EXAMINATION Last 24h vital signs reviewed, see documentation in flowsheet General: comfortable appearing, no distress, sitting in bed long-term through lunch HEENT: Normocephalic, atraumatic, pupils round and equal, sclerae anicteric, no conjunctival injection, moist mucus membranes Lungs: Normal respiratory effort. Heart: deferred Abdomen: Soft, nondistended. Extremities: Warm, dry, well-perfused. chronic venous stasis dermatitis bilateral lower legs mid shins to ankles, mild erythema of right lower leg which appears chronic. Left lower leg acutely erythematous warm and indurated and tender to touch, no fluctuant areas and no pus Neuro: Alert and oriented x 4, face symmetric, moves 4 extremities well Psych: Normal affect and behavior Results & Data Results & Data Vital Signs (Past 12 Hours) Vital Signs Temp Pulse Resp BP Pulse Ox O2 Del Method 11/13/23 08:11 36.6 C 76 18 140/58 L 98 Room Air 11/12/23 21:40 36.7 C 72 18 132/75 99 Room Air 11/12/23 21:40 Room Air 11/12/23 21:13 Room Air Laboratory Results 11/13/23 05:19 11/13/23 05:19 PG Care Time/CCT Total # of Minutes Spent Total Time Spent with Patient: Total time spent is greater than 50% in coordination of care (as documented) at patient's floor/unit and/or counseling patient: Coding Level of Care Code 69321 SUB INP/OBS CARE 235MIN Diagnoses Sepsis A41.9 Cellulitis L03.116 Laterality: left Site of cellulitis: extremity Site of cellulitis of extremity: lower extremity Diastolic heart failure I50.30 Elevated liver enzymes R74.8 Acquired hypothyroidism E03.9 Hypothyroidism type: acquired Anxiety F41.9 (2) Cellulitis Laterality: left Site of cellulitis: extremity Site of cellulitis of extremity: lower extremity Qualified Code(s): L03.116 - Cellulitis of left lower limb (5) Hypothyroidism Hypothyroidism type: acquired Qualified Code(s): E03.9 - Hypothyroidism, unspecified
[2023-11-13] MEDS: OMEGA-3 (PURIFIED FISH OIL) 1 GM CAP PO SCH (09:13)
[2023-11-13] MEDS: SIMETHICONE 80 MG CHEW PO PRN (09:13)
[2023-11-13] MEDS: oxyBUTYnin chloride 5 MG TAB PO SCH ×2 (09:13→20:22)
[2023-11-13] MEDS: CEROVITE ADV FORMULA TAB PO SCH ×2 (09:13→20:20)
[2023-11-13] MEDS: CALCIUM 600MG + VIT D 400 IU TAB PO SCH (09:14)
[2023-11-13] MEDS: HEPARIN SOD 5,000 UNIT/0.5 ML VIAL SQ SCH ×2 (09:14→20:20)
[2023-11-13] MEDS: VANCOMYCIN HCL 750 MG in SODIUM CHLORIDE 0.9% 250 ML IV SCH (09:23)
--- NOTE | 2023-11-13 10:43 | Pharmacy Report ---
Pharmacy PK ABX Note - Date of Service November 13, 2023 - Assessment and Plan Assessment 83 year old F receiving Vancomycin for treatment of lower extremity cellulitis. * Day #1 of antimicrobial therapy. * Labs/Vitals: Afebrile. Leukocytosis resolved. Procal and lactate negative. SCr improved today (1.37-->1.03). * Micro: Blood cultures pending. MRSA nasal swab positive. Plan Vancomycin * Loading dose: 1250 mg IV x 1 * Maintenance dose: 750 mg IV every 24 hours * Regimen is predicted to achieve target AUC/DANAE of 400-600 mg/L.hr * Random level ordered for: 11/15/23 Pharmacy will continue to follow and will adjust dose/frequency as necessary. Thank you. Pharmacy has transitioned to AUC monitoring for vancomycin. AUC/DANAE is the preferred PK/PD target and is associated with decreased risk of nephrotoxicity compared to traditional trough targets.
[2023-11-13] MEDS: hydrOXYzine HCl 10 MG TAB PO SCH ×3 (11:52→22:46)
[2023-11-13] MEDS: PARoxetine HCL 20 MG TAB PO SCH (20:20)
[2023-11-13] MEDS: lamoTRIgine 100 MG TAB PO SCH (20:21)
[2023-11-14] MEDS: PANTOprazole 40 MG TAB PO SCH (05:59)
[2023-11-14] MEDS: LEVOTHYROXINE SODIUM 75 MCG TABLET PO SCH (05:59)
[2023-11-14 07:27] LABS: Creatinine Clr Calc Pharmacy 35.2 ml/min; Est GFR (African American) 54.1 ml/min; Est GFR (Non-African American) 46.7 ml/min
[2023-11-14] MEDS: CEROVITE ADV FORMULA TAB PO SCH ×2 (08:46→20:38)
[2023-11-14] MEDS: OMEGA-3 (PURIFIED FISH OIL) 1 GM CAP PO SCH (08:46)
[2023-11-14] MEDS: CALCIUM 600MG + VIT D 400 IU TAB PO SCH (08:46)
[2023-11-14] MEDS: VANCOMYCIN HCL 750 MG in SODIUM CHLORIDE 0.9% 250 ML IV SCH (08:46)
[2023-11-14] MEDS: HEPARIN SOD 5,000 UNIT/0.5 ML VIAL SQ SCH ×2 (08:46→20:39)
[2023-11-14] MEDS: oxyBUTYnin chloride 5 MG TAB PO SCH ×2 (08:46→20:39)
[2023-11-14] MEDS: hydrOXYzine HCl 10 MG TAB PO SCH ×3 (11:43→23:05)
[2023-11-14] MEDS: ceFAZolin 2000MG 2,000 MG/15 ML SYR IV SCH ×2 (11:43→23:05)
--- NOTE | 2023-11-14 18:27 | Hospitalist Progress Note ---
Date of Service November 14, 2023 Assessment & Plan (1) Sepsis: Plan: 83-year-old female with past medical history of diastolic congestive heart failure, aortic stenosis, hypothyroidism, dermatitis stasis, and paroxysmal A- fib who presents to the hospital for the complaint of left lower extremity redness and pain. Being treated for sepsis due to LLE cellulitis. Started on ceftriaxone and vancomycin (MRSA+ nares). LE duplex negative for DVT. -given judicious IV fluids on admission, now held - significant valvular heart disease. good po -continue vancomycin. MRSA nares is positive but the cellulitis is nonpurulent and Less likely to be related to staph infection. is significantly improved tomorrow would be reasonable to stop vancomycin and treat with cephalosporin. inadvertently CTX was not ordered on admission so not given dose yesterday. Ordered cefazolin. she is quite elderly With multiple medical comorbidities so high risk and the cellulitis is severe therefore continued treatment with parenteral antibiotics is warranted. -leukocytosis resolved 11/13 improving likely ready for discharge in 1-2 days (2) Cellulitis: Plan: - See above (3) Diastolic heart failure: Plan: - Last echocardiogram done in May of this year showing ejection fraction of 60 to 65%, significant valvular disease however creatinine was mildly elevated and appears mildly dry. Cr improved 1.37-->1.0. Underlying CKD stage 3 -resume usual lasix in AM (4) Elevated liver enzymes: Plan: - Chronic and noted from previous admission, unchanged -Liver ultrasound showing normal liver in May -wonder if this chronic elevation is related to valvular heart disease (5) Hypothyroidism: Plan: - Continue levothyroxine (6) Anxiety: Plan: - Continue hydroxyzine 10 mg twice daily -Continue lamotrigine 200 mg at night Plan very low anion gap is noted. I think this is related to hypo proteinemia with low albumin and globulin DVT prophylaxis: Heparin sq bid CODE STATUS: DNR/DNI states she lives in assisted living at the [place] Admission and Anticipated Discharge Date Admission Date: November 12, 2023 Subjective L ankle pain a little bit improved. Redness has receded a bit. Still very inflamed and tender. Physical Exam 2 Physical Exam: PHYSICAL EXAMINATION Last 24h vital signs reviewed, see documentation in flowsheet General: comfortable appearing, no distress, sitting in bed resting HEENT: Normocephalic, atraumatic, pupils round and equal, sclerae anicteric, no conjunctival injection, moist mucus membranes Lungs: Normal respiratory effort. CTAB no rrw Heart: reg, systolic murmur, no JVD Abdomen: Soft, nondistended. Extremities: Warm, dry, well-perfused. chronic venous stasis dermatitis bilateral lower legs mid shins to ankles, mild erythema of right lower leg which appears chronic. Left lower leg acutely erythematous warm and indurated and tender to touch, no fluctuant areas and no pus. This is similar today but erythema has receded. slight lymphangitic spread present yesterday has resolved. Remains fairly severe indurated warm and tender Neuro: Alert and oriented x 4, face symmetric, moves 4 extremities well Psych: Normal affect and behavior Results & Data Results & Data Vital Signs (Past 12 Hours) Vital Signs Temp Pulse Resp BP Pulse Ox O2 Del Method 11/14/23 15:22 36.8 C 71 18 120/54 L 97 Room Air 11/14/23 07:47 36.6 C 63 18 151/81 H 96 Room Air Laboratory Results 11/13/23 05:19 11/14/23 06:28 PG Care Time/CCT Total # of Minutes Spent Total Time Spent with Patient: Total time spent is greater than 50% in coordination of care (as documented) at patient's floor/unit and/or counseling patient: Coding Level of Care Code 30874 SUB INP/OBS CARE 235MIN Diagnoses Sepsis A41.9 Cellulitis L03.116 Laterality: left Site of cellulitis: extremity Site of cellulitis of extremity: lower extremity Diastolic heart failure I50.30 Elevated liver enzymes R74.8 Acquired hypothyroidism E03.9 Hypothyroidism type: acquired Anxiety F41.9 (2) Cellulitis Laterality: left Site of cellulitis: extremity Site of cellulitis of extremity: lower extremity Qualified Code(s): L03.116 - Cellulitis of left lower limb (5) Hypothyroidism Hypothyroidism type: acquired Qualified Code(s): E03.9 - Hypothyroidism, unspecified
[2023-11-14] MEDS: lamoTRIgine 100 MG TAB PO SCH (20:38)
[2023-11-14] MEDS: PARoxetine HCL 20 MG TAB PO SCH (20:39)
--- NOTE | 2023-11-14 22:43 | Electrocardiogram Report ---
Test Reason : Blood Pressure : / mmHG Vent. Rate : 081 BPM Atrial Rate : 081 BPM P-R Int : 142 ms QRS Dur : 074 ms QT Int : 408 ms P-R-T Axes : 051 040 030 degrees QTc Int : 473 ms Normal sinus rhythm Normal ECG When compared with ECG of 29-JUN-2023 12:55, No significant change was found Confirmed by Troy Reveles ([id number]) on 11/14/2023 10:42:53 PM Referred By: REFERRED SELF Confirmed By:Troy Reveles
[2023-11-15 06:07] LABS: Creatinine Clr Calc Pharmacy 33.4 ml/min; Est GFR (African American) 50.8 ml/min; Est GFR (Non-African American) 43.8 ml/min
[2023-11-15] MEDS: PANTOprazole 40 MG TAB PO SCH (06:20)
[2023-11-15] MEDS: LEVOTHYROXINE SODIUM 75 MCG TABLET PO SCH (06:20)
[2023-11-15] MEDS: VANCOMYCIN HCL 750 MG in SODIUM CHLORIDE 0.9% 250 ML IV SCH (07:47)
[2023-11-15] MEDS: OMEGA-3 (PURIFIED FISH OIL) 1 GM CAP PO SCH (07:48)
[2023-11-15] MEDS: CEROVITE ADV FORMULA TAB PO SCH ×2 (07:48→21:01)
[2023-11-15] MEDS: HEPARIN SOD 5,000 UNIT/0.5 ML VIAL SQ SCH ×2 (07:49→21:01)
[2023-11-15] MEDS: FUROSEMIDE 20 MG TAB PO SCH (07:49)
[2023-11-15] MEDS: CALCIUM 600MG + VIT D 400 IU TAB PO SCH (07:49)
[2023-11-15] MEDS: oxyBUTYnin chloride 5 MG TAB PO SCH ×2 (07:50→21:01)
--- NOTE | 2023-11-15 10:21 | Pharmacy Report ---
Pharmacy PK ABX Note - Date of Service November 15, 2023 - Assessment and Plan Assessment 83 year old F receiving Vancomycin for treatment of lower extremity cellulitis. * Day #4 of antimicrobial therapy. * Labs/Vitals: Afebrile. Leukocytosis resolved. Procal and lactate negative. SCr improved today (1.37-->1.03). * Micro: Blood cultures show no growth at 48 hours. MRSA nasal swab positive. * Cefazolin added yesterday, discussed with hospitalist and will d/c this and leave as monotherapy vancomycin at this time. Plan Vancomycin * Current regimen: 750 mg IV every 24 hours * Random level obtained 11/15/23 resulted as 7.8 mcg/mL. This is predicted to achieve target AUC/DANAE of 400-600 mg/L.hr * Predicted AUC at steady state: 412 mg/L.hr * Change to 1000 mg IV every 24 hours to increase probability of target AUC/DANAE attainment (predicted AUC at steady state of 523 mg/L.hr. * Will repeat level in the next 48-72 hours if therapy is continued and/or change in patient clinical status Pharmacy will continue to follow and will adjust dose/frequency as necessary. Thank you. Pharmacy has transitioned to AUC monitoring for vancomycin. AUC/DANAE is the preferred PK/PD target and is associated with decreased risk of nephrotoxicity compared to traditional trough targets.
[2023-11-15] MEDS: hydrOXYzine HCl 10 MG TAB PO SCH ×3 (11:54→23:07)
--- NOTE | 2023-11-15 14:35 | Hospitalist Progress Note ---
Date of Service November 15, 2023 Assessment & Plan (1) Sepsis: Plan: 2nd to LLE cellulitis. Sepsis resolved. Blood cx's negative. (2) Cellulitis: Plan: LLE improving nicely cont vancomycin IV stop IV ancef eval tomorrow for appropriateness to transition to PO abx (3) Diastolic heart failure: Plan: chronic compensated last echo -- 05/2023 - preserved EF; and MS (4) Elevated liver enzymes: Plan: liver ultrasound 06/19 with gallstones but liver itself was normal abnl LFTs - etiology?? likely should have GI f/u since this is a chronic issue without an obvious cause (not on meds that would cause such) (5) Hypothyroidism: Plan: Continue levothyroxine TSH 01/2023 wnl (6) Anxiety: Plan: Continue hydroxyzine 10 mg twice daily Continue lamotrigine 200 mg at night Plan DVT prophylaxis: Heparin sq bid dispo - the [facility] tomorrow? 2 days? Admission and Anticipated Discharge Date Admission Date: November 12, 2023 Subjective left guerrero pain improved less redness no bowel movement since admission stomach feels "a little off" states she isn't eating that well but the nursing flowsheets show 100% of breakfast eaten no other new complaints Review of Systems Review of Systems: gen - no fevers cv - no cp pulm - no dyspnea GI - no abd pain Physical Exam Physical Exam: gen - NAD, looks well mouth - MMM neck - no JVD heart - RRR, s1 s2, 2-3/6 holosystolic murmur RUSB lungs - CTA b/l abd - soft NT ND BS+ ext - <1+edema LLE; pulses 2+ b/l skin - stasis dermatitis b/l shins; resolving cellulitis LLE (on distal guerrero) psych - a/o x 3 Results & Data Results & Data Vital Signs (Past 12 Hours) Vital Signs Temp Pulse Resp BP Pulse Ox O2 Del Method 11/15/23 08:29 36.6 C 72 16 154/71 H 95 Room Air Laboratory Results Laboratory Results - last 48 hr 11/15/23 05:36 Sodium Potassium Chloride Carbon Dioxide Anion Gap BUN Creatinine 1.16 Est Cr Clr Drug Dosing 33.4 Est GFR ( Amer) 50.8 Est GFR (Non-Af Amer) 43.8 BUN/Creatinine Ratio Glucose Calcium Total Bilirubin AST ALT Alkaline Phosphatase Total Protein Albumin Globulin Albumin/Globulin Ratio Random Vancomycin 7.8 L PG Care Time/CCT Total # of Minutes Spent Total Time Spent with Patient: Total time spent is greater than 50% in coordination of care (as documented) at patient's floor/unit and/or counseling patient: Coding Level of Care Code 59949 SUB INP/OBS CARE 2/35MIN Diagnoses Sepsis A41.9 Cellulitis L03.116 Laterality: left Site of cellulitis: extremity Site of cellulitis of extremity: lower extremity Diastolic heart failure I50.30 Elevated liver enzymes R74.8 Acquired hypothyroidism E03.9 Hypothyroidism type: acquired Anxiety F41.9 (2) Cellulitis Laterality: left Site of cellulitis: extremity Site of cellulitis of extremity: lower extremity Qualified Code(s): L03.116 - Cellulitis of left lowe r limb (5) Hypothyroidism Hypothyroidism type: acquired Qualified Code(s): E03.9 - Hypothyroidism, unspecified
[2023-11-15] MEDS: POLYETHYLENE (MIRALAX) 17 GM PACK PO SCH (15:41)
[2023-11-15] MEDS: SENNA 8.6 MG TAB PO SCH (15:42)
[2023-11-15] MEDS: VANCOMYCIN HCL 1,000 MG in SODIUM CHLORIDE 0.9% 250 ML IV SCH (20:45)
[2023-11-15] MEDS: lamoTRIgine 100 MG TAB PO SCH (21:01)
[2023-11-15] MEDS: PARoxetine HCL 20 MG TAB PO SCH (21:02)
[2023-11-16] MEDS: PANTOprazole 40 MG TAB PO SCH (06:02)
[2023-11-16] MEDS: LEVOTHYROXINE SODIUM 75 MCG TABLET PO SCH (06:02)
[2023-11-16 08:25] LABS: Albumin Globulin Ratio 1.3 (0.9-2); Albumin Level 3.3 gm/dl (3.4-5.0); BUN Creatinine Ratio 21.2 (10-20); Bilirubin,Total 0.7 mg/dl (0.2-1.0); Calcium 8.9 mg/dl (8.6-10.3); Creatinine Clr Calc Pharmacy 39.1 ml/min; Est GFR (African American) 61.5 ml/min; Est GFR (Non-African American) 53.1 ml/min; Globulin 2.5 gm/dl (2.5-4.0); Potassium 4.5 mmol/L (3.5-5.1); Total Protein 5.8 gm/dl (6.0-8.3)
[2023-11-16] MEDS: HEPARIN SOD 5,000 UNIT/0.5 ML VIAL SQ SCH ×2 (09:14→20:35)
[2023-11-16] MEDS: oxyBUTYnin chloride 5 MG TAB PO SCH ×2 (09:14→20:34)
[2023-11-16] MEDS: SENNA 8.6 MG TAB PO SCH (09:14)
[2023-11-16] MEDS: CEROVITE ADV FORMULA TAB PO SCH ×2 (09:14→20:34)
[2023-11-16] MEDS: POLYETHYLENE (MIRALAX) 17 GM PACK PO SCH (09:15)
[2023-11-16] MEDS: FUROSEMIDE 20 MG TAB PO SCH (09:23)
[2023-11-16] MEDS: OMEGA-3 (PURIFIED FISH OIL) 1 GM CAP PO SCH (09:23)
[2023-11-16] MEDS: CALCIUM 600MG + VIT D 400 IU TAB PO SCH (09:23)
[2023-11-16] MEDS: hydrOXYzine HCl 10 MG TAB PO SCH ×3 (11:00→22:50)
[2023-11-16] MEDS ORDERED: LACTATED RINGER'S 500 ML IV ONE (16:40)
[2023-11-16] MEDS: lamoTRIgine 100 MG TAB PO SCH (20:34)
[2023-11-16] MEDS: VANCOMYCIN HCL 1,000 MG in SODIUM CHLORIDE 0.9% 250 ML IV SCH (20:35)
[2023-11-16] MEDS: PARoxetine HCL 20 MG TAB PO SCH (20:35)
[2023-11-16] MEDS: DICLOFENAC SOD 1% GEL 100 GM TUBE EXT SCH (22:00)
--- NOTE | 2023-11-17 05:48 | Hospitalist Progress Note ---
Date of Service November 16, 2023 Assessment & Plan (1) Sepsis: Plan: 2nd to LLE cellulitis. Sepsis resolved. Blood cx's negative. (2) Cellulitis: Plan: LLE improving nicely cont vancomycin IV 1 more day then likely over to PO abx tomorrow (3) Diastolic heart failure: Plan: chronic compensated last echo -- 05/2023 - preserved EF; and MS (4) Elevated liver enzymes: Plan: liver ultrasound 06/19 with gallstones but liver itself was normal abnl LFTs - etiology?? likely should have GI f/u since this is a chronic issue without an obvious cause (not on meds that would cause such) will ask membership secretary to get her f/u appt with GI for this (5) Hypothyroidism: Plan: Continue levothyroxine TSH 01/2023 wnl (6) Anxiety: Plan: Continue hydroxyzine 10 mg twice daily Continue lamotrigine 200 mg at night Plan DVT prophylaxis: Heparin sq bid dispo - the [facility] await PT/OT evals to ensure she is strong enough to return there in the next 1-2 days Admission and Anticipated Discharge Date Admission Date: November 12, 2023 Subjective no events overnight left leg overall feeling good had bowel movement eating fair-good liquid intake is fair at best however no new complaints Review of Systems Review of Systems: gen - feels good, denies pain in LLE, only minimal walking around the room of late cv - no chest pain, no orthopnea pulm - no cough or congestion GI - no abd pain or N/V Physical Exam Physical Exam: gen - NAD, looks well mouth - MMM neck - no JVD heart - RRR, s1 s2, 2-3/6 holosystolic murmur RUSB lungs - CTA b/l abd - soft NT ND BS+ ext - trace edema LLE; pulses 2+ b/l skin - stasis dermatitis b/l shins; resolving cellulitis LLE (on distal guerrero, especially medially) - mild at best psych - a/o x 3 Results & Data Results & Data Vital Signs (Past 12 Hours) Vital Signs Temp Pulse Resp BP BP Pulse Ox O2 Del Method 11/16/23 16:18 36.5 C 68 16 101/56 L 97 Room Air 11/16/23 07:47 36.6 C 66 16 104/56 L 96 Room Air Laboratory Results Laboratory Results - last 24 hr 11/16/23 07:46 Sodium 139 Potassium 4.5 Chloride 104 Carbon Dioxide 32 Anion Gap 3 BUN 21 Creatinine 0.99 Est Cr Clr Drug Dosing 39.1 Est GFR ( Amer) 61.5 Est GFR (Non-Af Amer) 53.1 BUN/Creatinine Ratio 21.2 H Glucose 114 H Calcium 8.9 Total Bilirubin 0.7 AST 52 H ALT 61 H Alkaline Phosphatase 221 H Total Protein 5.8 L Albumin 3.3 L Globulin 2.5 Albumin/Globulin Ratio 1.3 Diagnostic Findings blood cx's from admission negative to date PG Care Time/CCT Total # of Minutes Spent Total Time Spent with Patient: Total time spent is greater than 50% in coordination of care (as documented) at patient's floor/unit and/or counseling patient: Coding Level of Care Code 52297 SUB INP/OBS CARE 12/22MIN Diagnoses Sepsis A41.9 Cellulitis L03.116 Laterality: left Site of cellulitis: extremity Site of cellulitis of extremity: lower extremity Diastolic heart failure I50.30 Elevated liver enzymes R74.8 Acquired hypothyroidism E03.9 Hypothyroidism type: acquired Anxiety F41.9 (2) Cellulitis Laterality: left Site of cellulitis: extremity Site of cellulitis of extremity: lower extremity Qualified Code(s): L03.116 - Cellulitis of left lower limb (5) Hypothyroidism Hypothyroidism type: acquired Qualified Code(s): E03.9 - Hypothyroidism, unspecified
[2023-11-17] MEDS: LEVOTHYROXINE SODIUM 75 MCG TABLET PO SCH (05:55)
[2023-11-17] MEDS: PANTOprazole 40 MG TAB PO SCH (05:55)
[2023-11-17 07:10] LABS: Hematocrit (blood only) 34.7 % (37.0-47.0); Hemoglobin 11.4 g/dl (12.0-16.0); Mean Corpuscular Hemoglobin 28.8 pg (25.0-34.0); Mean Corpuscular Hgb Conc 32.9 g/dL (32.0-36.0); Mean Corpuscular Volume 87.6 fL (80.0-100.0); Mean Platelet Volume 8.4 fL (9.4-12.4); Platelet Count 253 K/uL (130-400); RDW Coefficient of Variation 13.9 % (11.5-14.5); RDW Standard Deviation 45.2 fL (36.4-46.3); Red Blood Count 3.96 M/uL (4.20-5.40); White Blood Count 6.22 K/ul (4.8-10.8)
[2023-11-17 07:33] LABS: BUN Creatinine Ratio 24.5 (10-20); Calcium 8.7 mg/dl (8.6-10.3); Creatinine Clr Calc Pharmacy 41.2 ml/min; Est GFR (African American) 65.5 ml/min; Est GFR (Non-African American) 56.5 ml/min; Potassium 4.2 mmol/L (3.5-5.1)
[2023-11-17] MEDS: CEROVITE ADV FORMULA TAB PO SCH (09:01)
[2023-11-17] MEDS: oxyBUTYnin chloride 5 MG TAB PO SCH (09:02)
[2023-11-17] MEDS: SIMETHICONE 80 MG CHEW PO PRN (09:02)
[2023-11-17] MEDS: POLYETHYLENE (MIRALAX) 17 GM PACK PO SCH (09:04)
[2023-11-17] MEDS: DICLOFENAC SOD 1% GEL 100 GM TUBE EXT SCH ×2 (09:05→13:00)
[2023-11-17] MEDS: CALCIUM 600MG + VIT D 400 IU TAB PO SCH (09:08)
[2023-11-17] MEDS: OMEGA-3 (PURIFIED FISH OIL) 1 GM CAP PO SCH (09:08)
[2023-11-17] MEDS: SENNA 8.6 MG TAB PO SCH (09:09)
[2023-11-17] MEDS: HEPARIN SOD 5,000 UNIT/0.5 ML VIAL SQ SCH (11:06)
[2023-11-17] MEDS: hydrOXYzine HCl 10 MG TAB PO SCH (11:07)
--- NOTE | 2023-11-17 14:06 | Discharge Summary ---
Date of Service November 17, 2023 Admission HPI Per Admitting Provider Patient is an 83-year-old female with past medical history of diastolic congestive heart failure, aortic stenosis, hypothyroidism, dermatitis stasis, and paroxysmal A-fib who presents to the hospital for the complaint of left lower extremity redness and pain. Patient reports for the past 36 hours, she has developed left lower extremity erythema and tenderness to palpation. She has a recurrent history of previous cellulitis as well as dermatitis stasis flareups. Her most recent admission was back in July where she had bilateral cellulitis of the lower extremities. Otherwise only has the other complaint of intermittent nausea but has been able to eat without vomiting. No shortness of breath or chest pain. No diarrhea. No headaches. She does wear compression stockings routinely and when the aides put her stockings on, they do sometimes cause bleeding on her legs because of their nails and how tight the stockings are. No recent falls. No other complaints at this time. Patient evaluated by ED provider. Labs are significant for Elevated white blood cell count at 13.1, creatinine 1.37, normal lactate, mildly elevated liver enzymes, normal procalcitonin, and positive MRSA nares. Chest x-ray suspicious for atelectasis without any evidence of acute process. Cardiomegaly is also noted without pulmonary edema. Venous Doppler study was ordered but was pending at the time of interview. Patient was given a small bolus of normal saline and was also given a dose of Rocephin. Hospitalist service was then consulted for admission. Discharge Exam gen - NAD, looks well mouth - MMM neck - no JVD heart - RRR, s1 s2, 2-3/6 holosystolic murmur RUSB lungs - CTA b/l abd - soft NT ND BS+ ext - trace edema LLE; pulses 2+ b/l skin - stasis dermatitis b/l shins; resolving cellulitis LLE (on distal guerrero, especially medially) - mild at best psych - a/o x 3 Discharge Data Allergies Allergy/AdvReac Type Severity Reaction Status Date / Time No Known Allergies Allergy Verified 11/12/23 18:27 Consultations 11/12/23 20:00 ED Decision to Admit Stat Ordered Studies 11/12/23 17:07 US venous doppler LE LT Stat Hospital Course (1) Sepsis: 2nd to LLE cellulitis. Sepsis resolved. Blood cx's negative. (2) Cellulitis: LLE improving nicely cont vancomycin IV 1 more day then likely over to PO abx tomorrow (3) Diastolic heart failure: chronic compensated last echo -- 05/2023 - preserved EF; and MS (4) Elevated liver enzymes: liver ultrasound 06/19 with gallstones but liver itself was normal abnl LFTs - etiology?? likely should have GI f/u since this is a chronic issue without an obvious cause (not on meds that would cause such) will ask payroll secretary to get her f/u appt with GI for this (5) Hypothyroidism: Continue levothyroxine TSH 01/2023 wnl (6) Anxiety: Continue hydroxyzine 10 mg twice daily Continue lamotrigine 200 mg at night Plan DVT prophylaxis: Heparin sq bid dispo - the [facility] await PT/OT evals to ensure she is strong enough to return there in the next 1-2 days Discharge Plan Discharge Items Patient Disposition: Personal [facility] Reason For Visit: CELLULITIS Discharge Diagnosis: 1. cellulitis of left leg - nearly resolved 2. chronically elevated liver function tests - GI follow-up needed; etiology uncertain 3. arthritis of the knees 4. mild right heel pain - podiatry follow-up recommended Activity: Resume your previous activity Non-emergency contact: Primary Care Provider and Specialist Call non-emergency contact if: you have any medication questions, your symptoms worsen and you have a fever Follow-up/Referrals: Srinivas Branham DO [Physician] - 12/01/23 1:20 pm (With MARILEE Gupta [place] instead) CLAYTON, [Primary Care Provider] - (see PCP within 3-4 days for recheck of left leg ) Kendrick Romano DPM [Physician] - 11/29/23 2:15 pm Diet: Heart Healthy Addtl Attending Provider Instructions: Ms Howard was treated for left leg cellulitis with IV antibiotics. The cellulitis on the distal left leg is nearly resolved. Blood cultures were negative while here. She has had abnormal liver function tests since early 2022. Exact etiology uncertain. She will need follow-up with [facility] [place] [place] [facility] for this. She complained of mild right heel pain off/on during the stay. Uncertain if this is due to neuropathy or other ailment. Recommend podiatry follow-up. Recommendations - 1. antibiotics for left leg cellulitis - * cephalexin 500mg three times daily x 3 days, first dose upon arrival home * doxycycline 100mg twice daily x 3 days, first dose TONIGHT 2. for knee arthritis - * voltaren gel 4gm to either knee up to 4 times each day 3. STOP ibuprofen due to complaints of stomach upset, reflux, nausea, etc. 4. INCREASE omeprazole to 40mg once daily for reflux disease 5. Miralax 1 serving daily for constipation 6. Follow-up appointments - see separate section 7. Triamcinolone cream - do not apply to left leg at this time due to resolving cellulitis; just apply to right guerrero/right leg for now. Return to [facility] if - * any fever over 100 degrees * worsening redness, swelling, pain of either leg - especially the left leg * development of severe diarrhea * any other concerns It was our pleasure to care for Ms Howard! Pending Studies at Discharge: No Stand-Alone Forms: My [facility] [employer], Smoking Cessation Skilled Items Patient informed of condition?: Yes DNR: Yes Discharge Level of Care: Other Communicable Disease: Yes (+MRSA screen) Discharge Prognosis: Stable Lines: None Urinary Catheter: No Medications and DC Order Prescriptions: New diclofenac sodium [Voltaren Arthritis Pain] 1 % Gel 4 g EXT QID Qty: 100 2RF Rx Instructions: apply 4 grams to either knee up 4 times daily. polyethylene glycol 3350 [Miralax] 17 gram Powder In Packet 17 g PO DAILY Qty: 30 2RF cephalexin 500 mg tablet 500 mg PO TID 3 Days Qty: 9 0RF doxycycline hyclate 100 mg tablet 100 mg PO BID 3 Days Qty: 6 0RF Continued oxybutynin chloride 5 mg tablet 2.5 mg PO BID furosemide 20 mg tablet 20 mg PO DAILY levothyroxine 75 mcg tablet 75 mcg PO DAILYBB lamotrigine 200 mg tablet 200 mg PO HS simethicone 125 mg Tablet,Chewable 125 mg PO QID PRN (Reason: GAS DISCOMFORT) nystatin 100,000 unit/gram Powder 1 applic TOPICAL BID PRN (Reason: excoriation) Rx Instructions: under bilateral breast Systane Gel 0.4-0.3 % Drops,Gel 1 drp OPHTHALMIC (EYE) 6XD PRN (Reason: Dry Eyes) melatonin 10 mg Tablet 10 mg PO HS PRN (Reason: Sleep) omega [id number] oil [Fish Oil] 1,200 (144-216) mg Capsule 1 cap PO QAM multivitamin [Daily-Priscila] Tablet 1 tab PO DAILY calcium carbonate-vitamin D3 [Calcium 600 + D(3)] 600 mg-10 mcg (400 unit) Tablet 1 tab PO DAILY paroxetine HCl [Paxil] 30 mg Tablet 30 mg PO HS acetaminophen [Tylenol 8 Hour] 650 mg Tablet Extended Release 650 mg PO TID MDD 3 GRAMS APAP/24 HOURS PRN (Reason: Pain) calcium carbonate [Tums Ultra] 400 mg calcium (1,000 mg) Tablet,Chewable 1,000 mg PO QID PRN (Reason: Indigestion) PreserVision AREDS-2 250-90-40-1 mg Capsule 1 tab PO BID guaifenesin [Mucinex] 600 mg Tablet Extended Release 12hr 600 mg PO DAILY MDD 2,400mg/24hr PRN (Reason: Congestion) triamcinolone acetonide 0.1 % Cream 1 applic TOPICAL BID Qty: 30 0RF Rx Instructions: apply to right guerrero dry skin areas x 7 days then stop; avoid left leg for now due to resolving cellulitis. Changed omeprazole 40 mg capsule,delayed release(DR/EC) 40 mg PO QAM Qty: 30 2RF Rx Instructions: note larger dose hydroxyzine HCl 10 mg tablet 10 - 20 mg PO Q8H PRN (Reason: Anxiety) Qty: 30 0RF hydroxyzine HCl 10 mg Tablet 10 mg PO BID Qty: 60 0RF Rx Instructions: Take 10mg by mouth twice DAILY AT 1100 & 1700 hydroxyzine HCl 10 mg Tablet 20 mg PO HS Qty: 30 0RF Rx Instructions: Take 20mg by mouth at AT 2300 Discontinued ibuprofen 400 mg Tablet 400 mg PO TID PRN (Reason: Pain) Discharge Orders: Discharge Order (Routine); Ordered 11/17/23 Ordered By: Wenceslao Ruffin Admission Data Admit Date/Time: 11/12/23 20:12 Attending Provider: Wenceslao Ruffin Admit Provider: Spike Lara Primary Care Provider: CLAYTON, Other Providers: Messi Dahl, Coding Diagnoses Sepsis A41.9 Cellulitis L03.116 Laterality: left Site of cellulitis: extremity Site of cellulitis of extremity: lower extremity Diastolic heart failure I50.30 Elevated liver enzymes R74.8 Acquired hypothyroidism E03.9 Hypothyroidism type: acquired Anxiety F41.9
== END 2023-11-17 14:32 | disposition home or self-care (01) | DRG 872 ==
LOC: ED 16:39 → 3N 20:12 → SUATTDRO 20:12 → 3N 21:13

== ENCOUNTER 2024-01-13 16:01 | Inpatient (IN) ==
[2024-01-13 17:04] LABS: Hematocrit (blood only) 38.5 % (37.0-47.0); Hemoglobin 12.9 g/dl (12.0-16.0); Mean Corpuscular Hemoglobin 29.1 pg (25.0-34.0); Mean Corpuscular Hgb Conc 33.5 g/dL (32.0-36.0); Mean Corpuscular Volume 86.7 fL (80.0-100.0); Mean Platelet Volume 8.7 fL (9.4-12.4); Platelet Count 248 K/uL (130-400); RDW Coefficient of Variation 14.3 % (11.5-14.5); RDW Standard Deviation 45.8 fL (36.4-46.3); Red Blood Count 4.44 M/uL (4.20-5.40)
[2024-01-13 17:15] LABS: BUN Creatinine Ratio 19.6 (10-20); Bilirubin Direct 0.3 mg/dl (0-0.2); Bilirubin,Total 0.9 mg/dl (0.2-1.0); Calcium 8.7 mg/dl (8.6-10.3); Est GFR (African American) 67.2 ml/min; Magnesium 1.7 mg/dl (1.7-2.4); Potassium 3.4 mmol/L (3.5-5.1); Total Protein 7.1 gm/dl (6.0-8.3)
--- NOTE | 2024-01-13 17:20 | XRay Report ---
XR chest 1V portable HISTORY: Sepsis COMPARISON: Chest 01/12/2024. FINDINGS: No pneumothorax. No pleural effusions. The heart remains mildly enlarged. Chronic interstit ial thickening persists. No new focal lung consolidations to suggest a pneumonia. No evidence for pul monary edema. Postoperative changes within the proximal left humerus. IMPRESSION: No significant change compared to the prior study. No acute process. ACT 112: Negative or not required by law. Electronically signed by: Santos Hairston M.D. 01/13/2024 5:19 PM
[2024-01-13 17:22] LABS: Troponin I High Sensitivity 12.7 pg/ml (0-14)
[2024-01-13 17:42] LABS: Basophils # (auto) 0.01 K/uL (0.00-0.20); Basophils % (auto) 0.1 %; Eosinophils # (auto) 0.23 K/uL (0.00-0.50); Eosinophils % (auto) 2.3 %; Immature Granulocytes # (auto) 0.03 K/uL (0.01-0.20); Immature Granulocytes % (auto) 0.3 %; Lymphocytes # (auto) 0.31 K/uL (1.20-3.40); Lymphocytes % (auto) 3.2 %; Monocytes # (auto) 0.32 K/uL (0.11-0.59); Monocytes % (auto) 3.3 %; Neutrophils % (auto) 90.8 %
[2024-01-13] MEDS: CEFEPIME 20 ML IV STA (17:49)
[2024-01-13] MEDS: ACETAMINOPHEN 500 MG TAB PO STA (17:49)
[2024-01-13] MEDS: SODIUM CHLORIDE 0.9% 1,000 ML IV SCH (17:50)
[2024-01-13 17:54] LABS: Adenovirus PCR Not Detected (NotDetected); Bordetella parapertussis PCR Not Detected (NotDetected); Bordetella pertussis PCR Not Detected (NotDetected); Chlamydia pneumoniae PCR Not Detected (NotDetected); Coronavirus 229E PCR Not Detected (NotDetected); Coronavirus CoV-2 (COVID19)PCR Not Detected (NotDetected); Coronavirus HKU1 PCR Not Detected (NotDetected); Coronavirus NL63 PCR Not Detected (NotDetected); Coronavirus OC43PCR Not Detected (NotDetected); Human Metapneumovirus PCR Not Detected (NotDetected); Influenza A PCR Not Detected (NotDetected); Influenza B PCR Not Detected (NotDetected); Mycoplasma pneumoniae PCR Not Detected (NotDetected); Parainfluenza Virus 1 PCR Not Detected (NotDetected); Parainfluenza Virus 2 PCR Not Detected (NotDetected); Parainfluenza Virus 3 PCR Not Detected (NotDetected); Parainfluenza Virus 4 PCR Not Detected (NotDetected); Respiratory Syncytial VirusPCR Not Detected (NotDetected); Rhinovirus/Enterovirus PCR Not Detected (NotDetected)
[2024-01-13] MEDS: DAPTOmycin 200 MG in SYRINGE 0 ML IV ONE (17:54)
--- NOTE | 2024-01-13 18:17 | Emergency Department Note ---
Impression & Plan Cellulitis, Rigors, Fever ED Provider Note NAME: JAMES AMOS AGE: 83 SEX: Female INFORMANT: Patient ED PROVIDER(S): Galen Anaya MD CHIEF COMPLAINT: Fever PLAN: Disposition: Admitted Outpatient prescription management: none Referral: None MEDICAL DECISION MAKING: Patient presented because of fever and rigors. Patient had a workup initiated. Record review indicates he was here last night received Rocephin and daptomycin. Patient had fever on examination and rigors. Her cellulitis was significant despite her treatment received last night. Blood work was obtained. She was found to have an unremarkable CBC but elevated procalcitonin as well as elevated LFTs. These have been elevated in the past but seem to be trending in the wrong direction. She has no abdominal symptoms. Patient was gently hydrated. She had a dose of Tylenol administered. Discussed with ED pharmacist and she was given IV cefepime and another dose of IV daptomycin. Patient did not receive her oral antibiotics today. Further management the hospital was deemed appropriate. [facility] I discussed case with Dr. Bharat Salguero of the [facility] service. Patient was evaluated in the ER for further management. Ultrasound imaging was performed and after admission the patient was found to have signs suggesting possible cholecystitis. Patient did not have any GI symptoms. I did discuss this with Dr. Mendoza of the hospitalist service and they will consult surgery. . Care/management discussed with: manager food safety. ED pharmacist. Level of care consideration(s): After review of the information above and other included data, I feel the patient requires escalation of care to admission Triage Nursing notes: reviewed and agree them. Vital Signs: reviewed and remarkable for fever Additional History obtained from: none Chronic Medical/Social Conditions affecting care: CHF Prior/ Outside/ External records reviewed: none Differential Diagnosis: Cellulitis, abscess, MRSA infection, DVT, necrotizing fasciitis, dermatitis, drug eruption, allergic reaction, as well as other pathologies. Diagnostics, independently interpreted by me: ECG: Twelve-lead ECG reveals normal sinus rhythm at [address] elevation or depression. No PVCs or PACs. Cardiac Monitoring: Cardiac monitoring ordered by me: The patient was placed on continuous cardiac monitoring and observed. It revealed a normal sinus rhythm at 100 beats per minute without ectopy or evidence of dysrhythmia. Medical decision rules: none Imaging studies: Chest x-ray negative for pneumonia. HPI: 83 year old Female arrives for evaluation of fever. Patient was seen in the ER last night diagnosed with cellulitis. She was treated with IV antibiotics. Oral antibiotics were prescribed. Patient was discharged. She notes increased weakness and fever today. She also notes having rigors. Patient was sent back from her personal health facility for reevaluation. Patient did not receive her oral antibiotics today. Patient also notes some mild right shoulder pain. She thinks it is from trying to push herself up in the chair. No falls or URI symptoms. History of cellulitis. Pt denies LOC, headache, visual changes, neck pain, chest pain, breathing difficulties, nausea, vomiting, abdominal pain, back pain, melena, hematochezia, urinary symptoms, numbness, lymphadenopathy, or other complaints. PAST MEDICAL HISTORY: See Below, CHF, cellulitis PAST SURGICAL HISTORY: See Below, SOCIAL HISTORY: See Below, retired HOME MEDICATIONS: See Below ALLERGIES: See Below VITALS: See Below PHYSICAL EXAMINATION: GENERAL: Awake, alert, ill-appearing, in no distress, experiencing HENT: Normocephalic, atraumatic. Oropharynx unremarkable. EYES: Normal conjunctiva. Sclera non-icteric. NECK: Inspection normal. Non-tender. Supple. No nuchal rigidity. FROM. No masses. RESPIRATORY: Clear to auscultation. No wheezes. No rales. Normal respiratory effort. CARDIAC: Borderline tachycardic rate. Normal rhythm. No murmurs. No rubs. Extremities warm and well perfused. Pulses equal. No JVD. GI: Soft, non-distended. No tenderness to palpation. No rebound or guarding. No masses. RECTAL: Deferred. MUSCULOSKELETAL: Atraumatic. Chest examination reveals no tenderness. The back is symmetrical on inspection without obvious abnormality. There is no CVA tenderness to palpation. No joint edema. LOWER EXTREMITIES: Calves are equal size bilaterally and non-tender. 1 edema. Significant erythematous discoloration extending up to above the knees bilaterally. Warmth and tenderness present as well. Concerning for cellulitis. NEURO: Normal sensorium. No sensory or motor deficits noted. SKIN: No rash or jaundice noted. PROCEDURES: none CRITICAL CARE: none OBSERVATION NOTE: none Past Med/Surg History Medical History Chronic renal insufficiency Diastolic heart failure Sepsis Stasis dermatitis Cellulitis Elevated liver enzymes Aortic stenosis Degenerative arthritis Depression with anxiety Paroxysmal atrial fibrillation with RVR Heart murmur Patient will be scheduled for an echocardiogram she is no recollection of being told that she had a heart murmur Weakness Rib fracture Postherpetic neuralgia Cellulitis Anxiety Hypothyroidism Surgical History S/P cataract surgery Family History Father , age 76 of metastatic prostate cancer Cancer Prostate cancer Heart disease Mother , age 93 Rheumatoid arthritis Social History Smoking Status: Never smoker Second Hand Exposure: No; Do You Dip or Chew Tobacco: No; Hx Alcohol Use: No Hx Substance Use: No Preferred Language: Malay Communication Ability: Effective Drafter Electromechanical Required: No Beliefs That Will Affect Care: Zoroastrianism marital status: Single Current Living Situation: Senior Living Current Living Situation Comment: [facility] current occupational status: retired 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57 How many Children do You have: 0 Feels Safe at Home: Yes Assistive Devices: Walker Allergies Allergies Allergy/AdvReac Type Severity Reaction Status Date / Time No Known Allergies Allergy Verified 01/13/24 18:40 Home Meds Home Medications Medication Instructions Recorded Confirmed acetaminophen 650 mg 650 mg PO TID PRN Pain 01/12/24 01/13/24 tablet,extended release (Tylenol Arthritis Pain) artificial tears(hypromellose) 0.3 1 drp OPB 6XD PRN Dry Eye(S) 01/12/24 01/13/24 % eye gel (Systane Gel) calcium carbonate 400 mg calcium 400 mg PO QID PRN Indigestion 01/12/24 01/13/24 (1,000 mg) chewable tablet (Tums Ultra) calcium carbonate 600 mg-vitamin 1 tab PO DAILY 01/12/24 01/13/24 D3 10 mcg (400 unit) tablet (Calcium 600 + D(3)) diclofenac sodium 1 % topical gel 4 g topical QID PRN Pain 01/12/24 01/13/24 furosemide 20 mg tablet 20 mg PO DAILY 01/12/24 01/13/24 guaifenesin 600 mg tablet, 600 mg PO DIRECTED PRN 01/12/24 01/13/24 extended release 12 hr (Mucinex) Congestion hydroxyzine HCl 10 mg tablet 10 mg PO BID 01/12/24 01/13/24 hydroxyzine HCl 10 mg tablet 20 mg PO HS 01/12/24 01/13/24 lamotrigine 200 mg tablet 200 mg PO HS 01/12/24 01/13/24 levothyroxine 75 mcg tablet 75 mcg PO DAILY 01/12/24 01/13/24 melatonin 10 mg tablet 10 mg PO HS PRN Sleep 01/12/24 01/13/24 multivitamin 1 tab PO DAILY 01/12/24 01/13/24 nystatin 100,000 unit/gram topical 1 applic topical BID PRN 01/12/24 01/13/24 powder (Nystop) excoriation omega 0-ujr-ets-fish oil 1,200 mg 1 cap PO DAILY 01/12/24 01/13/24 (144 mg-216 mg) capsule (Fish Oil) omeprazole 40 mg capsule,delayed 40 mg PO DAILY 01/12/24 01/13/24 release oxybutynin chloride 5 mg tablet 2.5 mg PO BID 01/12/24 01/13/24 paroxetine HCl 30 mg tablet 30 mg PO HS 01/12/24 01/13/24 polyethylene glycol 3350 17 gram 17 g PO DAILY PRN Constipation 01/12/24 01/13/24 oral powder packet (Miralax) simethicone 125 mg chewable tablet 125 mg PO QID PRN .gas 01/12/24 01/13/24 vit C 250 mg-vit E 90 mg-zinc 40 1 tab PO BID 01/12/24 01/13/24 mg-copper 1 bg-vioiey-hxrazk capsule (PreserVision AREDS-2) hydroxyzine HCl 10 mg tablet 10 - 20 mg PO DIRECTED PRN 01/13/24 01/13/24 Anxiety Previous Rx's Medication Instructions Recorded Saccharomyces boulardii 250 mg 250 mg PO BID #20 caps 01/12/24 capsule (Florastor) cephalexin 500 mg capsule 500 mg PO QID 7 days #28 caps 01/12/24 doxycycline hyclate 100 mg tablet 100 mg PO BID 7 days #14 tabs 01/12/24 Results & Data (ED) Vital Signs Vital Signs - 24 hr 01/13/24 16:15 01/13/24 16:16 01/13/24 17:02 Temperature 37 C 37.3 C Temperature Source Oral Oral Pulse Rate 94 H 93 H Pulse Rate [Apical] 98 H Respiratory Rate 16 16 Respiratory Effort / Characteristics Non-Labored Respiratory Depth Normal Blood Pressure 108/74 Blood Pressure [Right Arm] 148/68 H Blood Pressure Mean 85 Blood Pressure Mean [Right Arm] 94 Blood Pressure Position [Right Arm] Pulse Oximetry 98 99 Oxygen Delivery Method Room Air Room Air Sepsis Recent Fever Within 48 Hours No Sepsis New/Unexplained Change in Mental Status No Sepsis Action Taken by Nursing No Action Required 01/13/24 17:02 01/13/24 17:34 01/13/24 18:42 Temperature 37.9 C H Temperature Source Oral Pulse Rate Pulse Rate [Apical] 67 100 H Respiratory Rate 16 16 Respiratory Effort / Characteristics Non-Labored Respiratory Depth Normal Blood Pressure Blood Pressure [Right Arm] 148/61 H 133/75 Blood Pressure Mean Blood Pressure Mean [Right Arm] 90 94 Blood Pressure Position [Right Arm] Pulse Oximetry 98 100 97 Oxygen Delivery Method Room Air Room Air Room Air Sepsis Recent Fever Within 48 Hours Sepsis New/Unexplained Change in Mental Status Sepsis Action Taken by Nursing 01/13/24 20:10 01/13/24 20:28 01/13/24 22:00 Temperature Temperature Source Pulse Rate 88 Pulse Rate [Apical] 97 H 97 H Respiratory Rate 18 18 Respiratory Effort / Characteristics Non-Labored Non-Labored Respiratory Depth Normal Normal Blood Pressure Blood Pressure [Right Arm] 150/61 H 131/58 L Blood Pressure Mean Blood Pressure Mean [Right Arm] 90 82 Blood Pressure Position [Right Arm] Lying Pulse Oximetry 93 91 Oxygen Delivery Method Room Air Room Air Sepsis Recent Fever Within 48 Hours Sepsis New/Unexplained Change in Mental Status Sepsis Action Taken by Nursing Laboratory Data 01/13/24 16:23 01/13/24 16:23 Lab Results 01/13/24 01/13/24 Range/Units 16:20 16:23 WBC 9.80 (4.8-10.8) K/ul RBC 4.44 (4.20-5.40) M/uL Hgb 12.9 (12.0-16.0) g/dl Hct 38.5 (37.0-47.0) % MCV 86.7 (80.0-100.0) fL MCH 29.1 (25.0-34.0) pg MCHC 33.5 (32.0-36.0) g/dL RDW Std Deviation 45.8 (36.4-46.3) fL RDW Coeff of Benita 14.3 (11.5-14.5) % Plt Count 248 (130-400) K/uL MPV 8.7 L (9.4-12.4) fL Immature Gran % (Auto) 0.3 % Neut % (Auto) 90.8 % Lymph % (Auto) 3.2 % [place] % (Auto) 3.3 % Eos % (Auto) 2.3 % Baso % (Auto) 0.1 % Neut # (Auto) 8.90 H (1.40-6.50) K/uL Lymph # (Auto) 0.31 L (1.20-3.40) K/uL [place] # (Auto) 0.32 (0.11-0.59) K/uL Eos # (Auto) 0.23 (0.00-0.50) K/uL Baso # (Auto) 0.01 (0.00-0.20) K/uL Immature Gran # (Auto) 0.03 (0.01-0.20) K/uL ESR 37 H (0-30) mm/hr Sodium 133 L (136-145) mmol/L Potassium 3.4 L D (3.5-5.1) mmol/L Chloride 99 (98-107) mmol/L Carbon Dioxide 26 (21-32) mmol/L Anion Gap 8 (3-11) BUN 18 (6-23) mg/dl Creatinine 0.92 (0.6-1.2) mg/dl Est Cr Clr Drug Dosing 41.0 ml/min Est GFR ( Amer) 67.2 ml/min Est GFR (Non-Af Amer) 58.0 ml/min BUN/Creatinine Ratio 19.6 (10-20) Glucose 126 H (70-99(Fasting)) mg/dl Lactate 1.5 (0.4-2.0) mmol/L Calcium 8.7 (8.6-10.3) mg/dl Magnesium 1.7 (1.7-2.4) mg/dl Total Bilirubin 0.9 (0.2-1.0) mg/dl Direct Bilirubin 0.3 H (0-0.2) mg/dl AST 64 H (13-39) U/L ALT 110 H (7-52) U/L Alkaline Phosphatase 283 H (34-104) U/L Troponin I High Sens 12.7 (0-14) pg/ml C-Reactive Protein 10.34 H (0-0.5) mg/dl Total Protein 7.1 (6.0-8.3) gm/dl Albumin 4.0 (3.4-5.0) gm/dl Procalcitonin 0.86 H (0-0.5) ng/ml Adenovirus (PCR) Not Detected (NotDetected) B. pertussis DNA (PCR) Not Detected (NotDetected) B.parapertussis DNA PCR Not Detected (NotDetected) C. pneumoniae DNA (PCR) Not Detected (NotDetected) Coronavirus OC43 (PCR) Not Detected (NotDetected) Coronavirus HKU1 (PCR) Not Detected (NotDetected) Coronavirus 229E (PCR) Not Detected (NotDetected) SARS-CoV-2 (PCR) Not Detected (NotDetected) Coronavirus NL63 (PCR) Not Detected (NotDetected) Human Metapneumovir PCR Not Detected (NotDetected) Influenza Type A (PCR) Not Detected (NotDetected) Influenza Type B (PCR) Not Detected (NotDetected) M. pneumoniae (PCR) Not Detected (NotDetected) Parainfluenza 1 (PCR) Not Detected (NotDetected) Parainfluenza 2 (PCR) Not Detected (NotDetected) Parainfluenza 3 (PCR) Not Detected (NotDetected) Parainfluenza 4 (PCR) Not Detected (NotDetected) RSV (PCR) Not Detected (NotDetected) Entero/Rhino (PCR) Not Detected (NotDetected) Administered Medications Sodium Chloride (Nss) 1,000 mls @ 125 mls/hr IV .Q8H MIKE Stop: 02/12/24 17:59 Last Admin: 01/13/24 17:50 Dose: 125 mls/hr Documented By: CHLOE Discontinued Medications Acetaminophen (Acetaminophen 500 Mg Tab) 1,000 mg PO NOW STA Stop: 01/13/24 17:45 Last Admin: 01/13/24 17:49 Dose: 1,000 mg Documented By: CHLOE Cefepime HCl (Maxipime) 20 mls @ 5 mls/min IV NOW STA Stop: 01/13/24 17:27 Last Admin: 01/13/24 17:49 Dose: 5 mls/min Documented By: CHLOE Daptomycin 200 mg/ Syringe 4 mls @ 2 mls/min IV NOW ONE; Protocol Stop: 01/13/24 18:01 Last Admin: 01/13/24 17:54 Dose: 2 mls/min Documented By: CHLOE Potassium Chloride (Potassium Chloride Crtab 20 Meq Tabcr) 40 meq PO NOW STA Stop: 01/13/24 18:44 Last Admin: 01/13/24 20:15 Dose: 40 meq Documented By: MMG Imaging Data Radiologist's Impression: Chest X-Ray 01/13/24 16:16 XR chest 1V portable HISTORY: Sepsis COMPARISON: Chest 01/12/2024. FINDINGS: No pneumothorax. No pleural effusions. The heart remains mildly enlarged. Chronic interstitial thickening persists. No new focal lung consolidations to suggest a pneumonia. No evidence for pulmonary edema. Postoperative changes within the proximal left humerus. IMPRESSION: No significant change compared to the prior study. No acute process. ACT 112: Negative or not required by law. Electronically signed by: Santos Hairston M.D. 01/13/2024 5:19 PM Gallbladder Ultrasound 01/13/24 18:18 Exam(s): US GALLBLADDER EXAM: US Abdomen Limited, Gallbladder CLINICAL HISTORY: Elevated LFTs. TECHNIQUE: Real-time ultrasound of the right upper quadrant with image documentation. COMPARISON: Liver ultrasound 06/24/2023. FINDINGS: Liver: There is fatty infiltration of the liver. Stable ill-defined hypodensity of the left lobe of the liver. The liver measures 13.7 cm. Gallbladder: Cholelithiasis. Upper limits of normal gallbladder wall thickness. Common bile duct: The common bile duct is normal measuring 0.6 cm. No stones. No dilation. Pancreas: The pancreatic head and body are within normal limits. The tail is not visualized due to overlying bowel gas. Right kidney: The right kidney is unremarkable measuring 9.6 cm. IMPRESSION: 1. Cholelithiasis. Upper limits of normal gallbladder wall thickness. This could represent acute cholecystitis in the appropriate clinical setting. 2. There is fatty infiltration of the liver. Stable ill-defined hypodensity of the left lobe of the liver. Electronically signed by: Leona Enriquez MD 01/13/24 21:43 PM Discharge Plan Visit Data Chief Complaint: Illness Stated Complaint: FEVER ED Provider: Galen Anaya Discharge Problem: Cellulitis, Rigors, Fever Forms Stand Alone Forms: [facility] Prescriptions Prescriptions: No Action hydroxyzine HCl 10 mg Tablet 10 - 20 mg PO DIRECTED PRN (Reason: Anxiety) multivitamin Tablet 1 tab PO DAILY lamotrigine 200 mg tablet 200 mg PO HS polyethylene glycol 3350 [Miralax] 17 gram Powder In Packet 17 g PO DAILY PRN (Reason: Constipation) omeprazole 40 mg capsule,delayed release(DR/EC) 40 mg PO DAILY acetaminophen [Tylenol Arthritis Pain] 650 mg Tablet Extended Release 650 mg PO TID PRN (Reason: Pain) levothyroxine 75 mcg tablet 75 mcg PO DAILY calcium carbonate [Tums Ultra] 400 mg calcium (1,000 mg) Tablet,Chewable 400 mg PO QID PRN (Reason: Indigestion) paroxetine HCl 30 mg tablet 30 mg PO HS simethicone 125 mg Tablet,Chewable 125 mg PO QID PRN (Reason: .gas) furosemide 20 mg tablet 20 mg PO DAILY nystatin [Nystop] 100,000 unit/gram powder 1 applic TOPICAL BID PRN (Reason: excoriation) oxybutynin chloride 5 mg tablet 2.5 mg PO BID hydroxyzine HCl 10 mg tablet 10 mg PO BID Rx Instructions: Give 1100 & 1700 hydroxyzine HCl 10 mg tablet 20 mg PO HS Rx Instructions: 2300 Systane Gel 0.3 % Gel 1 drp OPB 6XD PRN (Reason: Dry Eye(S)) calcium carbonate-vitamin D3 [Calcium 600 + D(3)] 600 mg-10 mcg (400 unit) Tablet 1 tab PO DAILY diclofenac sodium 1 % gel 4 g TOPICAL QID PRN (Reason: Pain) Rx Instructions: either knee omega 1-tqa-nsi-fish oil [Fish Oil] 1,200 (144-216) mg Capsule 1 cap PO DAILY melatonin 10 mg Tablet 10 mg PO HS PRN (Reason: Sleep) PreserVision AREDS-2 250-90-40-1 mg Capsule 1 tab PO BID guaifenesin [Mucinex] 600 mg Tablet Extended Release 12hr 600 mg PO DIRECTED MDD 4 TABLETS/24 HOURS PRN (Reason: Congestion) cephalexin 500 mg capsule 500 mg PO QID 7 Days Qty: 28 0RF Rx Instructions: ORDERED 01/12/24---NOT [facility]. doxycycline hyclate 100 mg tablet 100 mg PO BID 7 Days Qty: 14 0RF Rx Instructions: ORDERED 01/12/24---NOT ON MEDICATION LIST [facility]. Saccharomyces boulardii [Florastor] 250 mg capsule 250 mg PO BID Qty: 20 0RF Rx Instructions: swallow whole ORDERED 01/12/24---NOT ON MEDICATION LIST FROM [facility] Referrals Referrals: CLAYTON, [Primary Care Provider] -
--- NOTE | 2024-01-13 19:36 | History & Physical Report ---
Date of Service January 13, 2024 Assessment & Plan (1) Bilateral lower leg cellulitis: Plan: Worsening bilateral cellulitis x 2 days Hx of bilateral cellulitis; DDx includes venous stasis dermatitis Patient was at [place] ED on 01/12, but sent back to [facility]; UA negative on 01/12 She returned to the ED with rigors on 01/13 Procalcitonin mildly elevated at 0.86 Elevated CRP at 10.34 Elevated ESR at 37 MRSA swab ordered, pending BioFire negative EKG NSR at 97 bpm; QTc 464 Continue daptomycin for now, and follow MRSA swab Significant as needed for pain/fever A.m. CBC, BMP, CRP (2) Transaminitis: Plan: Elevated AST at 64, ALT at 110, and alk phos at 283 Gallbladder ultrasound could potentially correlate with acute cholecystitis General surgery consult Zosyn 4.5 g IV q8h Repeat a.m. LFTs (3) Hypokalemia: Plan: Mild; K 3.4 on arrival Potassium 40mEq p.o. given in the ED Recheck in a.m. BMP (4) Acute on chronic diastolic CHF (congestive heart failure): Plan: Continue Lasix (5) Aortic stenosis: Plan: Chronic; noted Plan Disposition: Admit to [facility] Full code AHA diet VTE PPx: Lovenox 40 mg SQ q24h History of Present Illness Chief Complaint: Cellulitis Primary Care Provider: CRISTÓBAL Georges is an 83-year-old female with PMH of postherpetic neuralgia, paroxysmal A-fib, thyroid disease, essential tremor, gait disturbance, SIRS, CHF, aortic stenosis and anxiety with depression. She presented from [facility] for rigors and bilateral cellulitis on her lower extremities on 01/13. She reports that the redness started 2 days prior on 01/11. She denies itching or burning sensation, but notes it has been hot to touch. She reports a history of cellulitis over the past 3 years, and reports this happened about 6 times. She notes she has stasis dermatitis as well. She does not believe she took any medications today; [facility] manage her medications. She notes she has had 2 episodes of fever in the past couple days, which she believes was around 102 F. She denies alcohol and tobacco use. She denies lower extremity pain, but notes she has chronic right knee pain. Patient is mildly tachycardic at 100 bpm, and mildly febrile at 37.9 C at time of admission. ED course: NSS 1000 mL IV Cefepime Daptomycin 20 mg IV Tylenol 1000 mg p.o. Potassium chloride 40 mill equivalents p.o. ROS: Patient endorses intermittent fever x2, chills, urinary incontinence, and numbness/tingling in hands. Patient denies dizziness, lightheadedness, SERRANO chest pain, SOB, cough, abdominal pain, N/V/D, burning with urination, dysuria, blood in urine in stool, pain in legs, or N/T in legs. Allergies Allergy/AdvReac Type Severity Reaction Status Date / Time No Known Allergies Allergy Verified 01/13/24 18:40 Home Medications Medication Instructions Recorded Confirmed Type Saccharomyces boulardii 250 mg 250 mg PO BID #20 caps 01/12/24 01/13/24 Rx capsule (Florastor) acetaminophen 650 mg 650 mg PO TID PRN Pain 01/12/24 01/13/24 History tablet,extended release (Tylenol Arthritis Pain) artificial tears(hypromellose) 0.3 1 drp OPB 6XD PRN Dry Eye(S) 01/12/24 01/13/24 History % eye gel (Systane Gel) calcium carbonate 400 mg calcium 400 mg PO QID PRN Indigestion 01/12/24 01/13/24 History (1,000 mg) chewable tablet (Tums Ultra) calcium carbonate 600 mg-vitamin 1 tab PO DAILY 01/12/24 01/13/24 History D3 10 mcg (400 unit) tablet (Calcium 600 + D(3)) cephalexin 500 mg capsule 500 mg PO QID 7 days #28 caps 01/12/24 01/13/24 Rx diclofenac sodium 1 % topical gel 4 g topical QID PRN Pain 01/12/24 01/13/24 History doxycycline hyclate 100 mg tablet 100 mg PO BID 7 days #14 tabs 01/12/24 01/13/24 Rx furosemide 20 mg tablet 20 mg PO DAILY 01/12/24 01/13/24 History guaifenesin 600 mg tablet, 600 mg PO DIRECTED PRN 01/12/24 01/13/24 History extended release 12 hr (Mucinex) Congestion hydroxyzine HCl 10 mg tablet 10 mg PO BID 01/12/24 01/13/24 History hydroxyzine HCl 10 mg tablet 20 mg PO HS 01/12/24 01/13/24 History lamotrigine 200 mg tablet 200 mg PO HS 01/12/24 01/13/24 History levothyroxine 75 mcg tablet 75 mcg PO DAILY 01/12/24 01/13/24 History melatonin 10 mg tablet 10 mg PO HS PRN Sleep 01/12/24 01/13/24 History multivitamin 1 tab PO DAILY 01/12/24 01/13/24 History nystatin 100,000 unit/gram topical 1 applic topical BID PRN 01/12/24 01/13/24 History powder (Nystop) excoriation omega 2-uyz-oyu-fish oil 1,200 mg 1 cap PO DAILY 01/12/24 01/13/24 History (144 mg-216 mg) capsule (Fish Oil) omeprazole 40 mg capsule,delayed 40 mg PO DAILY 01/12/24 01/13/24 History release oxybutynin chloride 5 mg tablet 2.5 mg PO BID 01/12/24 01/13/24 History paroxetine HCl 30 mg tablet 30 mg PO HS 01/12/24 01/13/24 History polyethylene glycol 3350 17 gram 17 g PO DAILY PRN Constipation 01/12/24 01/13/24 History oral powder packet (Miralax) simethicone 125 mg chewable tablet 125 mg PO QID PRN .gas 01/12/24 01/13/24 History vit C 250 mg-vit E 90 mg-zinc 40 1 tab PO BID 01/12/24 01/13/24 History mg-copper 1 go-zwygot-vwxnyf capsule (PreserVision AREDS-2) hydroxyzine HCl 10 mg tablet 10 - 20 mg PO DIRECTED PRN 01/13/24 01/13/24 History Anxiety Past Med/Surg History Medical History Chronic renal insufficiency Diastolic heart failure Sepsis Stasis dermatitis Cellulitis Elevated liver enzymes Aortic stenosis Degenerative arthritis Depression with anxiety Paroxysmal atrial fibrillation with RVR Heart murmur Patient will be scheduled for an echocardiogram she is no recollection of being told that she had a heart murmur Weakness Rib fracture Postherpetic neuralgia Cellulitis Anxiety Hypothyroidism Surgical History S/P cataract surgery Family History Father , age 76 of metastatic prostate cancer Cancer Prostate cancer Heart disease Mother , age 93 Rheumatoid arthritis Social History Smoking Status: Never smoker Second Hand Exposure: No; Do You Dip or Chew Tobacco: No; Hx Alcohol Use: No Hx Substance Use: No Preferred Language: Uzbek Communication Ability: Effective A/C Technician Required: No Beliefs That Will Affect Care: Tenriism marital status: Single Current Living Situation: Longterm Current Living Situation Comment: [facility] current occupational status: retired 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57 How many Children do You have: 0 Feels Safe at Home: Yes Assistive Devices: Walker Review of Systems 2 Review of Systems: See HPI above Physical Exam 2 Physical Exam: General: no acute distress; non-toxic appearing; well-nourished; cooperative HEENT: normocephalic, atraumatic; no scleral icterus; PERRLA w/ EOMs intact; moist mucus membrane; vision and hearing grossly intact Neck: supple; no JVD; no lymphadenopathy; trachea midline Skin: warm, dry without signs of tenting; no cyanosis; no rashes, bruising, lesions, or erythema noted CV: chest wall NTP; RRR; S1/S2 normal; 4/6 systolic ejection murmur auscultated at the second ICS MCL; pulses intact and symmetric at radial, DP, and PT Lungs: no acute respiratory distress; symmetrical chest wall expansion; clear breath sounds across all lung andujar w/o adventitious sounds; no wheezing ABD: Soft, NTP; BS present; no rebound/guarding; no ascites; no distention; negative CVA tenderness MSK: no tics or fasciculations; no edema noted in the LEs b/l, nonerythematous LEs: Hot to touch; mildly NTP; erythematous in the LEs B/L (see photo below) Neuro: A&Ox3; normal mood and affect; fluent speech; no focal deficits; sensation grossly intact in the LEs b/l Results & Data Results & Data Vital Signs (Past 12 Hours) Vital Signs Temp Pulse Pulse Resp BP BP Pulse Ox 01/13/24 18:42 100 H 16 133/75 97 01/13/24 17:34 37.9 C H 67 16 148/61 H 100 01/13/24 17:02 98 01/13/24 17:02 37.3 C 98 H 16 148/68 H 99 01/13/24 16:16 93 H 01/13/24 16:15 37 C 94 H 16 108/74 98 O2 Del Method 01/13/24 18:42 Room Air 01/13/24 17:34 Room Air 01/13/24 17:02 Room Air 01/13/24 17:02 Room Air 01/13/24 16:16 01/13/24 16:15 Room Air Laboratory Results Abnormal lab results 01/13/24 Range/Units 16:23 MPV 8.7 L (9.4-12.4) fL Neut # (Auto) 8.90 H (1.40-6.50) K/uL Lymph # (Auto) 0.31 L (1.20-3.40) K/uL Sodium 133 L (136-145) mmol/L Potassium 3.4 L D (3.5-5.1) mmol/L Glucose 126 H (70-99(Fasting)) mg/dl Direct Bilirubin 0.3 H (0-0.2) mg/dl AST 64 H (13-39) U/L ALT 110 H (7-52) U/L Alkaline Phosphatase 283 H (34-104) U/L Procalcitonin 0.86 H (0-0.5) ng/ml Diagnostic Findings Chest X-Ray 01/13/24 16:16 XR chest 1V portable HISTORY: Sepsis COMPARISON: Chest 01/12/2024. FINDINGS: No pneumothorax. No pleural effusions. The heart remains mildly enlarged. Chronic interstitial thickening persists. No new focal lung consolidations to suggest a pneumonia. No evidence for pulmonary edema. Postoperative changes within the proximal left humerus. IMPRESSION: No significant change compared to the prior study. No acute process. ACT 112: Negative or not required by law. Electronically signed by: Santos Hairston M.D. 01/13/2024 5:19 PM Code Status & VTE Plan Code Status Full code (per paperwork sent in by Cristóbal) VTE Prophylaxis Plan VTE Prophylaxis will be ordered: Yes Supervising Physician Co-Signing Physician Notes Patient seen and examined, chart reviewed, case discussed with MARILEE Mcdonald and I agree with the assessment and plan as above except as otherwise noted Labs and images reviewed Zhane is an 83-year-old female with history of postherpetic neuralgia, paroxysmal A-fib, thyroid disease, CHF, aortic stenosis, anxiety/depression who presents from the [facility] with concern for lower extremity cellulitis. She was seen in the ER 1 night ago concern was for cellulitis versus venous stasis and was discharged back to the [facility] on Keflex/Doxy but who Shannon presents with worsening erythema and warmth of the right more than the left lower extremity, increased fever, concern for worsening infection. Patient did have a fever of 102 x 2. UA is bland. No respiratory symptoms. Lungs are clear. Bio fire Negative. Given elevated Pro-Carlos, fever, and worsening warmth/erythema of the right lower extremity admitted & continued treatment with cefepime/daptomycin and trend CRP. No abd pain on exam, however GB US ordred 2/2 transaminitis. Suspicious for acute phi --> switched to Zosyn and sx consulted. NPO 0000. Blood cultures are pending. Agree with assessment and management as above. PG Care Time/CCT Total # of Minutes Spent Total Time Spent with Patient: Total time spent is greater than 50% in coordination of care (as documented) at patient's floor/unit and/or counseling patient: Coding [place] [address] INT INP/OBS CARE 2/55MIN Patient Type Established Medical Decision Making Moderate Complexity Diagnoses Bilateral lower leg cellulitis L03.116; L03.115 Transaminitis R74.01 Hypokalemia E87.6 Acute on chronic diastolic CHF (congestive heart failure) I50.33 Aortic stenosis I35.0
[2024-01-13] MEDS: POTASSIUM CHLORIDE CRTAB 20 MEQ TABCR PO STA (20:15)
[2024-01-13 21:23] LABS: C Reactive Protein 10.34 mg/dl (0-0.5)
--- NOTE | 2024-01-13 21:44 | Ultrasound Report ---
Exam(s): US GALLBLADDER EXAM: US Abdomen Limited, Gallbladder CLINICAL HISTORY: Elevated LFTs. TECHNIQUE: Real-time ultrasound of the right upper quadrant with image documentation. COMPARISON: Liver ultrasound 06/24/2023. FINDINGS: Liver: There is fatty infiltration of the liver. Stable ill-defined hypodensity of the left lobe of the liver. The liver measures 13.7 cm. Gallbladder: Cholelithiasis. Upper limits of normal gallbladder wall thickness. Common bile duct: The common bile duct is normal measuring 0.6 cm. No stones. No dilation. Pancreas: The pancreatic head and body are within normal limits. The tail is not visualized due to overlying bowel gas. Right kidney: The right kidney is unremarkable measuring 9.6 cm. IMPRESSION: 1. Cholelithiasis. Upper limits of normal gallbladder wall thickness. This could represent acute cholecystitis in the appropriate clinical setting. 2. There is fatty infiltration of the liver. Stable ill-defined hypodensity of the left lobe of the liver. Electronically signed by: Leona Enriquez MD 01/13/24 21:43 PM
[2024-01-14] MEDS: PIPERACILLIN/TAZOBACTAM 4.5 GM in DEXTROSE 5% MINI-B 100 ML IV SCH (00:32)
[2024-01-14] MEDS ORDERED: POLYETHYLENE (MIRALAX) 17 GM PACK PO PRN (02:08)
[2024-01-14] MEDS ORDERED: guaiFENesin 600 MG TABCR PO PRN (02:08)
[2024-01-14] MEDS ORDERED: MELATONIN 3 MG TAB PO PRN (02:08)
[2024-01-14] MEDS ORDERED: ONDANSETRON INJ 2 MG/ML 2 ML VIAL IV PRN (02:08)
[2024-01-14] MEDS: hydrOXYzine HCl 10 MG TAB PO SCH ×2 (03:02→12:46)
[2024-01-14] MEDS: oxyBUTYnin chloride 5 MG TAB PO SCH (03:03)
[2024-01-14] MEDS: lamoTRIgine 100 MG TAB PO SCH (03:03)
[2024-01-14] MEDS: PARoxetine HCL 20 MG TAB PO SCH (03:03)
[2024-01-14] MEDS ORDERED: Nursing to Pharmacy Communication SCH (05:00)
[2024-01-14] MEDS: PANTOprazole 40 MG TAB PO SCH (06:33)
[2024-01-14] MEDS: LEVOTHYROXINE SODIUM 75 MCG TABLET PO SCH (06:34)
[2024-01-14 06:54] LABS: Basophils # (auto) 0.01 K/uL (0.00-0.20); Basophils % (auto) 0.1 %; Eosinophils # (auto) 0.21 K/uL (0.00-0.50); Eosinophils % (auto) 2.7 %; Hematocrit (blood only) 34.2 % (37.0-47.0); Hemoglobin 11.4 g/dl (12.0-16.0); Immature Granulocytes # (auto) 0.03 K/uL (0.01-0.20); Immature Granulocytes % (auto) 0.4 %; Lymphocytes # (auto) 0.54 K/uL (1.20-3.40); Mean Corpuscular Hemoglobin 28.9 pg (25.0-34.0); Mean Corpuscular Hgb Conc 33.3 g/dL (32.0-36.0); Mean Corpuscular Volume 86.6 fL (80.0-100.0); Mean Platelet Volume 8.6 fL (9.4-12.4); Monocytes # (auto) 0.36 K/uL (0.11-0.59); Monocytes % (auto) 4.6 %; Neutrophils # (auto) 6.61 K/uL (1.40-6.50); Neutrophils % (auto) 85.2 %; Platelet Count 179 K/uL (130-400); RDW Coefficient of Variation 14.6 % (11.5-14.5); RDW Standard Deviation 46.5 fL (36.4-46.3); Red Blood Count 3.95 M/uL (4.20-5.40); White Blood Count 7.76 K/ul (4.8-10.8)
[2024-01-14 07:13] LABS: Albumin Level 3.2 gm/dl (3.4-5.0); BUN Creatinine Ratio 16.5 (10-20); Bilirubin Direct 0.4 mg/dl (0-0.2); Bilirubin,Total 1.1 mg/dl (0.2-1.0); C Reactive Protein 14.54 mg/dl (0-0.5); Calcium 8.2 mg/dl (8.6-10.3); Creatinine Clr Calc Pharmacy 38.7 ml/min; Est GFR (Non-African American) 54.4 ml/min; Total Protein 5.7 gm/dl (6.0-8.3)
--- NOTE | 2024-01-14 08:15 | Anesthesiology Consultation ---
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 History Surgery Operation Date: 01/14/24 13:00 Proposed Procedures p Laparoscopic Cholecystectomy - Montserrat Millan MD Height/Weight Height: 5 ft Weight: 68.9 kg Allergies Allergy/AdvReac Type Severity Reaction Status Date / Time No Known Allergies Allergy Verified 01/13/24 18:40 Medications Home Medications Medication Instructions Recorded Confirmed Last Taken Saccharomyces boulardii 250 mg 250 mg PO BID #20 caps 01/12/24 01/13/24 Unknown capsule (Florastor) acetaminophen 650 mg 650 mg PO TID PRN Pain 01/12/24 01/13/24 Unknown tablet,extended release (Tylenol Arthritis Pain) artificial tears(hypromellose) 0.3 1 drp OPB 6XD PRN Dry Eye(S) 01/12/24 01/13/24 Unknown % eye gel (Systane Gel) calcium carbonate 400 mg calcium 400 mg PO QID PRN Indigestion 01/12/24 01/13/24 Unknown (1,000 mg) chewable tablet (Tums Ultra) calcium carbonate 600 mg-vitamin 1 tab PO DAILY 01/12/24 01/13/24 01/13/24 D3 10 mcg (400 unit) tablet (Calcium 600 + D(3)) cephalexin 500 mg capsule 500 mg PO QID 7 days #28 caps 01/12/24 01/13/24 Unknown diclofenac sodium 1 % topical gel 4 g topical QID PRN Pain 01/12/24 01/13/24 Unknown doxycycline hyclate 100 mg tablet 100 mg PO BID 7 days #14 tabs 01/12/24 01/13/24 Unknown furosemide 20 mg tablet 20 mg PO DAILY 01/12/24 01/13/24 01/13/24 guaifenesin 600 mg tablet, 600 mg PO DIRECTED PRN 01/12/24 01/13/24 Unknown extended release 12 hr (Mucinex) Congestion hydroxyzine HCl 10 mg tablet 10 mg PO BID 01/12/24 01/13/24 01/13/24 11:00 hydroxyzine HCl 10 mg tablet 20 mg PO HS 01/12/24 01/13/24 01/12/24 lamotrigine 200 mg tablet 200 mg PO HS 01/12/24 01/13/24 01/12/24 levothyroxine 75 mcg tablet 75 mcg PO DAILY 01/12/24 01/13/24 01/13/24 melatonin 10 mg tablet 10 mg PO HS PRN Sleep 01/12/24 01/13/24 Unknown multivitamin 1 tab PO DAILY 01/12/24 01/13/24 01/13/24 nystatin 100,000 unit/gram topical 1 applic topical BID PRN 01/12/24 01/13/24 Unknown powder (Nystop) excoriation omega 2-lzf-slb-fish oil 1,200 mg 1 cap PO DAILY 01/12/24 01/13/24 01/13/24 (144 mg-216 mg) capsule (Fish Oil) omeprazole 40 mg capsule,delayed 40 mg PO DAILY 01/12/24 01/13/24 01/13/24 release oxybutynin chloride 5 mg tablet 2.5 mg PO BID 01/12/24 01/13/24 01/13/24 08:00 paroxetine HCl 30 mg tablet 30 mg PO HS 01/12/24 01/13/24 01/12/24 polyethylene glycol 3350 17 gram 17 g PO DAILY PRN Constipation 01/12/24 01/13/24 Unknown oral powder packet (Miralax) simethicone 125 mg chewable tablet 125 mg PO QID PRN .gas 01/12/24 01/13/24 Unknown vit C 250 mg-vit E 90 mg-zinc 40 1 tab PO BID 01/12/24 01/13/24 01/13/24 08:00 mg-copper 1 ip-nhxkxx-raplyb capsule (PreserVision AREDS-2) hydroxyzine HCl 10 mg tablet 10 - 20 mg PO DIRECTED PRN 01/13/24 01/13/24 Unknown Anxiety Active Medications Generic Name Dose Route Start Last Admin Trade Name Freq PRN Reason Stop Dose Admin Hydroxyzine HCl 20 mg 01/14/24 02:08 01/14/24 03:02 Hydroxyzine Hcl 10 Mg Tab PO 02/13/24 02:07 20 mg HS MIKE Administration Piperacillin Sod/Tazobactam 100 mls @ 25 mls/hr 01/13/24 23:30 01/14/24 06:34 Sod 4.5 gm/ Dextrose IV 01/23/24 23:29 25 mls/hr Q8H MIKE Administration Protocol Lamotrigine 200 mg 01/14/24 02:08 01/14/24 03:03 Lamotrigine 100 Mg Tab PO 02/13/24 02:07 200 mg HS MIKE Administration Protocol Levothyroxine Sodium 75 mcg 01/14/24 06:30 01/14/24 06:34 Levothyroxine Sodium 75 Mcg Tablet PO 02/13/24 06:29 75 mcg DAILYBB MIKE Administration Oxybutynin Chloride 2.5 mg 01/14/24 02:08 01/14/24 03:03 Oxybutynin Chloride 5 Mg Tab PO 02/13/24 02:07 2.5 mg BID MIKE Administration Pantoprazole Sodium 40 mg 01/14/24 06:30 01/14/24 06:33 Pantoprazole 40 Mg Tab PO 02/13/24 06:29 40 mg DAILYBB MIKE Administration Paroxetine HCl 30 mg 01/14/24 02:08 01/14/24 03:03 Paroxetine Hcl 20 Mg Tab PO 02/13/24 02:07 30 mg HS MIKE Administration Past Medical History Medical History Chronic renal insufficiency Diastolic heart failure Sepsis Stasis dermatitis Cellulitis Elevated liver enzymes Aortic stenosis Degenerative arthritis Depression with anxiety Paroxysmal atrial fibrillation with RVR Heart murmur Patient will be scheduled for an echocardiogram she is no recollection of being told that she had a heart murmur Weakness Rib fracture Postherpetic neuralgia Cellulitis Anxiety Hypothyroidism Past Family History Family History Father , age 76 of metastatic prostate cancer Cancer Prostate cancer Heart disease Mother , age 93 Rheumatoid arthritis Past Surgical History Surgical History S/P cataract surgery Social History Smoking Status: Never smoker Do You Dip or Chew Tobacco: No Hx Alcohol Use: No Alcohol type: wine alcohol intake frequency: holidays/special occasions only Hx Substance Use: No substance use type: does not use Physical Exam Vital Signs Last Vital Signs Temp 99.7 F H 01/14/24 07:49 Pulse 90 01/14/24 07:49 Resp 16 01/14/24 07:49 BP 101/52 L 01/14/24 07:49 Pulse Ox 93 01/14/24 07:49 O2 Del Method Room Air 01/14/24 07:49 Testing Laboratory Results 01/14/24 06:21 01/14/24 06:21 Electrocardiogram Date: 01/13/24 Findings: + NSR @ (97 bpm) Echocardiogram Date: 06/24/23 LV systolic function is normal EF 60-65% LV wall motion is normal Moderate LVH RV is normal in size and function Moderate aortic stenosis Moderate annular calcification Mild mitral stenosis Mild to mod MR LA moderately dilated RVSP is elevated at 30-40mmHg
[2024-01-14] MEDS ORDERED: ACETAMINOPHEN 1000 MG/100 ML IV IV ONE (08:43)
[2024-01-14] MEDS ORDERED: FAMOTIDINE/PF 20 MG/2 ML VIAL IV ONE (08:44)
[2024-01-14] MEDS ORDERED: PANTOprazole 40 MG TAB PO SCH (09:00)
[2024-01-14] MEDS: ENOXAPARIN INJ 40 MG/0.4 ML SYR SQ SCH (09:04)
[2024-01-14] MEDS: FUROSEMIDE 20 MG TAB PO SCH (09:05)
--- NOTE | 2024-01-14 11:21 | Hospitalist Progress Note ---
Date of Service January 14, 2024 Assessment & Plan (1) Bilateral lower leg cellulitis: Plan: Presented to the hospital with worsening bilateral cellulitis x 2 days Hx of bilateral cellulitis; there is also an element of venous stasis dermatitis Patient was at [facility] ED on 01/12, but sent back to [facility]; UA negative on 01/12 She returned to the ED with rigors on 01/13 Procalcitonin mildly elevated at 0.86 Elevated CRP at 10.34 Elevated ESR at 37 MRSA swab positive BioFire negative Initially started on daptomycin and Zosyn Await cultures (2) Transaminitis: Plan: Elevated AST at 64, ALT at 110, and alk phos at 283 Gallbladder ultrasound showed mild thickening of the gallbladder, suggestive of cholecystitis Hepatitis panel pending General surgery consult Zosyn 4.5 g IV q8h Repeat a.m. LFTs (3) Hypokalemia: Plan: Replaced (4) Acute on chronic diastolic CHF (congestive heart failure): Plan: BNP 400 Continue home Lasix 20mg daily Monitor input and output, daily weight (5) Aortic stenosis: Plan: Chronic; noted Plan Disposition: Admit to [facility] Full code AHA diet VTE PPx: Lovenox 40 mg SQ q24h Admission and Anticipated Discharge Date Admission Date: January 13, 2024 Subjective Patient seen and examined, complained that she did not get breakfast Review of Systems Review of Systems: All systems reviewed are negative, apart from the ones contained in the history. Physical Exam Physical Exam: The patient is awake, alert and oriented 3, well developed and well nourished, normocephalic and atraumatic, lying in bed and in no acute distress. HEENT--PERRL, EOMI, mucous membranes and oropharynx mildly dry Neck--supple. No JVD. No bruits. Thyroid normal, trachea midline, no adenopathy. Heart--normal S1 and S2. No murmurs, rubs or gallops. Lungs--clear bilaterally, no respiratory distress, no accessory muscle use. Abdomen--normal bowel sounds and soft. Extremities--no cyanosis or clubbing. Mild leg edema Dermatologic--bilateral lower extremity redness Neurologic--cranial nerves II through XII grossly intact. Rheumatologic--normal range of motion. Psychiatric--normal affect. Results & Data Results & Data Vital Signs (Past 12 Hours) Vital Signs Temp Pulse Pulse Pulse Resp BP BP 01/14/24 07:49 99.7 F H 90 16 101/52 L 01/14/24 02:47 01/14/24 02:28 99.1 F 94 H 20 138/71 01/14/24 02:16 99.1 F 94 H 20 138/71 01/14/24 00:39 96 H 18 144/60 H 01/14/24 00:36 98.2 F 01/14/24 00:15 96 H 01/14/24 00:00 104 H 18 150/86 H Pulse Ox O2 Del Method 01/14/24 07:49 93 Room Air 01/14/24 02:47 Room Air 01/14/24 02:28 95 Room Air 01/14/24 02:16 95 Room Air 01/14/24 00:39 95 Room Air 01/14/24 00:36 01/14/24 00:15 01/14/24 00:00 96 Room Air PG Care Time/CCT Total # of Minutes Spent Total Time Spent with Patient: Total time spent is greater than 50% in coordination of care (as documented) at patient's floor/unit and/or counseling patient: Coding Level of Care Code 38248 SUB INP/OBS CARE 2/35MIN Diagnoses Bilateral lower leg cellulitis L03.116; L03.115 Transaminitis R74.01 Hypokalemia E87.6 Acute on chronic diastolic CHF (congestive heart failure) I50.33 Aortic stenosis I35.0 Time Spent (min) 35
[2024-01-14] MEDS: FUROSEMIDE 40 MG/4 ML VIAL IV ONE (12:49)
--- NOTE | 2024-01-14 16:13 | Surgery Consultation ---
Date of Consultation January 14, 2024 Assessment & Plan (1) Cholelithiasis: 83-year-old with known cholelithiasis. Current right upper quadrant ultrasound is borderline for acute cholecystitis. Clinically, she has no signs or symptoms of gallbladder disease. She is tolerating a regular diet with no nausea or pain or change in bowel habits. Thus, she does not have acute cholecystitis. I would recommend continuing her diet as tolerated. Will sign off. Please call with questions. (2) Transaminitis: She has had elevated liver function test intermittently in the past. These have been attributed to a combination of fatty liver and heart disease. She has no evidence of common bile duct dilation on her ultrasound. She has no abdominal pain suggestive of cholangitis. Her liver function tests are improving and can be monitored. History of Present Illness Reason for Consultation: abnormal RUQ ultrasound with transaminitis Requesting Physician: MARILEE Mcdonald Attending Physician: Ramon Haywood MD History of Present Illness 83-year-old woman with multiple other medical issues who is admitted with bilateral worsening lower extremity to the cellulitis. We were asked to see her as she was noted to have a transaminitis. Right upper quadrant ultrasound showed cholelithiasis and gallbladder wall at the upper limits of normal. On exam, she denies any abdominal pain. She has been eating lunch fine. She denies any intolerance to fatty foods. She currently has no nausea or vomiting. She has had no change in her bowel habits recently. She has known about her gallstones in the past and these have never caused her any trouble. She has no family history of gallbladder disease. Of note, she has had transaminitis in the past. This has previously been attributed to her heart failure and fatty liver disease. Her bilirubin has been as high as 1.6 total in the past. Cardiac echo in the past has shown a preserved ejection fraction of 60 to 65%, as well as moderate aortic stenosis. Allergies Allergy/AdvReac Type Severity Reaction Status Date / Time No Known Allergies Allergy Verified 01/13/24 18:40 Home Medications Medication Instructions Recorded Confirmed Type Saccharomyces boulardii 250 mg 250 mg PO BID #20 caps 01/12/24 01/13/24 Rx capsule (Florastor) acetaminophen 650 mg 650 mg PO TID PRN Pain 01/12/24 01/13/24 History tablet,extended release (Tylenol Arthritis Pain) artificial tears(hypromellose) 0.3 1 drp OPB 6XD PRN Dry Eye(S) 01/12/24 01/13/24 History % eye gel (Systane Gel) calcium carbonate 400 mg calcium 400 mg PO QID PRN Indigestion 01/12/24 01/13/24 History (1,000 mg) chewable tablet (Tums Ultra) calcium carbonate 600 mg-vitamin 1 tab PO DAILY 01/12/24 01/13/24 History D3 10 mcg (400 unit) tablet (Calcium 600 + D(3)) cephalexin 500 mg capsule 500 mg PO QID 7 days #28 caps 01/12/24 01/13/24 Rx diclofenac sodium 1 % topical gel 4 g topical QID PRN Pain 01/12/24 01/13/24 History doxycycline hyclate 100 mg tablet 100 mg PO BID 7 days #14 tabs 01/12/24 01/13/24 Rx furosemide 20 mg tablet 20 mg PO DAILY 01/12/24 01/13/24 History guaifenesin 600 mg tablet, 600 mg PO DIRECTED PRN 01/12/24 01/13/24 History extended release 12 hr (Mucinex) Congestion hydroxyzine HCl 10 mg tablet 10 mg PO BID 01/12/24 01/13/24 History hydroxyzine HCl 10 mg tablet 20 mg PO HS 01/12/24 01/13/24 History lamotrigine 200 mg tablet 200 mg PO HS 01/12/24 01/13/24 History levothyroxine 75 mcg tablet 75 mcg PO DAILY 01/12/24 01/13/24 History melatonin 10 mg tablet 10 mg PO HS PRN Sleep 01/12/24 01/13/24 History multivitamin 1 tab PO DAILY 01/12/24 01/13/24 History nystatin 100,000 unit/gram topical 1 applic topical BID PRN 01/12/24 01/13/24 History powder (Nystop) excoriation omega 6-viu-wqi-fish oil 1,200 mg 1 cap PO DAILY 01/12/24 01/13/24 History (144 mg-216 mg) capsule (Fish Oil) omeprazole 40 mg capsule,delayed 40 mg PO DAILY 01/12/24 01/13/24 History release oxybutynin chloride 5 mg tablet 2.5 mg PO BID 01/12/24 01/13/24 History paroxetine HCl 30 mg tablet 30 mg PO HS 01/12/24 01/13/24 History polyethylene glycol 3350 17 gram 17 g PO DAILY PRN Constipation 01/12/24 01/13/24 History oral powder packet (Miralax) simethicone 125 mg chewable tablet 125 mg PO QID PRN .gas 01/12/24 01/13/24 History vit C 250 mg-vit E 90 mg-zinc 40 1 tab PO BID 01/12/24 01/13/24 History mg-copper 1 tn-qhbied-ohcyxq capsule (PreserVision AREDS-2) hydroxyzine HCl 10 mg tablet 10 - 20 mg PO DIRECTED PRN 01/13/24 01/13/24 History Anxiety Patient History Medical History Chronic renal insufficiency Diastolic heart failure Sepsis Stasis dermatitis Cellulitis Elevated liver enzymes Aortic stenosis Degenerative arthritis Depression with anxiety Paroxysmal atrial fibrillation with RVR Heart murmur Patient will be scheduled for an echocardiogram she is no recollection of being told that she had a heart murmur Weakness Rib fracture Postherpetic neuralgia Cellulitis Anxiety Hypothyroidism Surgical History S/P cataract surgery Family History Father , age 76 of metastatic prostate cancer Cancer Prostate cancer Heart disease Mother , age 93 Rheumatoid arthritis Social History Smoking Status: Never smoker Second Hand Exposure: No; Do You Dip or Chew Tobacco: No; Hx Alcohol Use: No Hx Substance Use: No Preferred Language: R[place] Communication Ability: Effective Guillotine Trimmer Required: No Beliefs That Will Affect Care: None marital status: Single Current Living Situation: [facility] Current Living Situation Comment: Lives at [facility] current occupational status: retired 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57 How many Children do You have: 0 Feels Safe at Home: Yes Safety Concerns: Feels Safe At This Time Assistive Devices: Wheelchair Assistive Devices Comment: reading glasses Review of Systems Review of Systems: All systems reviewed & are unremarkable except as noted in HPI & below (worsening cellulitis and edema of lower extremities) Physical Exam Constitutional: WD/WN, vitals as above Eyes: PERRL, conjunctivae normal, anicteric sclerae ENMT: Ears: + hearing impairment; no external ear abnormality Respiratory: normal respiratory effort, lungs clear to auscultation Cardiovascular: Rate/Rhythm: regular rate and regular rhythm Gastrointestinal (Abdomen): normal bowel sounds, soft, nontender, no hepatosplenomegaly Neurologic: awake; no focal motor deficits Psychiatric: A+Ox3, euthymic affect Results & Data Vital Signs (Past 12 Hours) Vital Signs Temp Pulse Resp BP Pulse Ox O2 Del Method 01/14/24 15:53 36.4 C L 84 16 118/70 96 Room Air 01/14/24 07:49 37.6 C H 90 16 101/52 L 93 Room Air Laboratory Results 01/14/24 01/14/24 01/13/24 Range/Units 08:24 06:21 Unknown WBC 7.76 (4.8-10.8) K/ul RBC 3.95 L (4.20-5.40) M/uL Hgb 11.4 L (12.0-16.0) g/dl Hct 34.2 L (37.0-47.0) % MCV 86.6 (80.0-100.0) fL MCH 28.9 (25.0-34.0) pg MCHC 33.3 (32.0-36.0) g/dL RDW Std Deviation 46.5 H (36.4-46.3) fL RDW Coeff of Benita 14.6 H (11.5-14.5) % Plt Count 179 (130-400) K/uL MPV 8.6 L (9.4-12.4) fL Immature Gran % (Auto) 0.4 % Neut % (Auto) 85.2 % Lymph % (Auto) 7.0 % Kendall % (Auto) 4.6 % Eos % (Auto) 2.7 % Baso % (Auto) 0.1 % Neut # (Auto) 6.61 H (1.40-6.50) K/uL Lymph # (Auto) 0.54 L (1.20-3.40) K/uL Kendall # (Auto) 0.36 (0.11-0.59) K/uL Eos # (Auto) 0.21 (0.00-0.50) K/uL Baso # (Auto) 0.01 (0.00-0.20) K/uL Immature Gran # (Auto) 0.03 (0.01-0.20) K/uL ESR (0-30) mm/hr Sodium 134 L (136-145) mmol/L Potassium 4.0 (3.5-5.1) mmol/L Chloride 104 (98-107) mmol/L Carbon Dioxide 22 (21-32) mmol/L Anion Gap 8 (3-11) BUN 16 (6-23) mg/dl Creatinine 0.97 (0.6-1.2) mg/dl Est Cr Clr Drug Dosing 38.7 ml/min Est GFR ( Amer) 63.0 ml/min Est GFR (Non-Af Amer) 54.4 ml/min BUN/Creatinine Ratio 16.5 (10-20) Glucose 120 H (70-99(Fasting)) mg/dl Lactate (0.4-2.0) mmol/L Calcium 8.2 L (8.6-10.3) mg/dl Magnesium (1.7-2.4) mg/dl Total Bilirubin 1.1 H (0.2-1.0) mg/dl Direct Bilirubin 0.4 H (0-0.2) mg/dl AST 57 H (13-39) U/L ALT 90 H (7-52) U/L Alkaline Phosphatase 237 H (34-104) U/L Troponin I High Sens (0-14) pg/ml C-Reactive Protein 14.54 H (0-0.5) mg/dl B-Natriuretic Peptide 409 H (0-100) pg/ml Total Protein 5.7 L (6.0-8.3) gm/dl Albumin 3.2 L (3.4-5.0) gm/dl Procalcitonin (0-0.5) ng/ml Nasal Screen MRSA (PCR) Positive A (Negative) Adenovirus (PCR) (NotDetected) B. pertussis DNA (PCR) (NotDetected) B.parapertussis DNA PCR (NotDetected) C. pneumoniae DNA (PCR) (NotDetected) Coronavirus OC43 (PCR) (NotDetected) Coronavirus HKU1 (PCR) (NotDetected) Coronavirus 229E (PCR) (NotDetected) SARS-CoV-2 (PCR) (NotDetected) Coronavirus NL63 (PCR) (NotDetected) Human Metapneumovir PCR (NotDetected) Influenza Type A (PCR) (NotDetected) Influenza Type B (PCR) (NotDetected) M. pneumoniae (PCR) (NotDetected) Parainfluenza 1 (PCR) (NotDetected) Parainfluenza 2 (PCR) (NotDetected) Parainfluenza 3 (PCR) (NotDetected) Parainfluenza 4 (PCR) (NotDetected) RSV (PCR) (NotDetected) Entero/Rhino (PCR) (NotDetected) 01/13/24 01/13/24 Range/Units 16:23 16:20 WBC 9.80 (4.8-10.8) K/ul RBC 4.44 (4.20-5.40) M/uL Hgb 12.9 (12.0-16.0) g/dl Hct 38.5 (37.0-47.0) % MCV 86.7 (80.0-100.0) fL MCH 29.1 (25.0-34.0) pg MCHC 33.5 (32.0-36.0) g/dL RDW Std Deviation 45.8 (36.4-46.3) fL RDW Coeff of Benita 14.3 (11.5-14.5) % Plt Count 248 (130-400) K/uL MPV 8.7 L (9.4-12.4) fL Immature Gran % (Auto) 0.3 % Neut % (Auto) 90.8 % Lymph % (Auto) 3.2 % Kendall % (Auto) 3.3 % Eos % (Auto) 2.3 % Baso % (Auto) 0.1 % Neut # (Auto) 8.90 H (1.40-6.50) K/uL Lymph # (Auto) 0.31 L (1.20-3.40) K/uL Kendall # (Auto) 0.32 (0.11-0.59) K/uL Eos # (Auto) 0.23 (0.00-0.50) K/uL Baso # (Auto) 0.01 (0.00-0.20) K/uL Immature Gran # (Auto) 0.03 (0.01-0.20) K/uL ESR 37 H (0-30) mm/hr Sodium 133 L (136-145) mmol/L Potassium 3.4 L D (3.5-5.1) mmol/L Chloride 99 (98-107) mmol/L Carbon Dioxide 26 (21-32) mmol/L Anion Gap 8 (3-11) BUN 18 (6-23) mg/dl Creatinine 0.92 (0.6-1.2) mg/dl Est Cr Clr Drug Dosing 41.0 ml/min Est GFR ( Amer) 67.2 ml/min Est GFR (Non-Af Amer) 58.0 ml/min BUN/Creatinine Ratio 19.6 (10-20) Glucose 126 H (70-99(Fasting)) mg/dl Lactate 1.5 (0.4-2.0) mmol/L Calcium 8.7 (8.6-10.3) mg/dl Magnesium 1.7 (1.7-2.4) mg/dl Total Bilirubin 0.9 (0.2-1.0) mg/dl Direct Bilirubin 0.3 H (0-0.2) mg/dl AST 64 H (13-39) U/L ALT 110 H (7-52) U/L Alkaline Phosphatase 283 H (34-104) U/L Troponin I High Sens 12.7 (0-14) pg/ml C-Reactive Protein 10.34 H (0-0.5) mg/dl B-Natriuretic Peptide (0-100) pg/ml Total Protein 7.1 (6.0-8.3) gm/dl Albumin 4.0 (3.4-5.0) gm/dl Procalcitonin 0.86 H (0-0.5) ng/ml Nasal Screen MRSA (PCR) (Negative) Adenovirus (PCR) Not Detected (NotDetected) B. pertussis DNA (PCR) Not Detected (NotDetected) B.parapertussis DNA PCR Not Detected (NotDetected) C. pneumoniae DNA (PCR) Not Detected (NotDetected) Coronavirus OC43 (PCR) Not Detected (NotDetected) Coronavirus HKU1 (PCR) Not Detected (NotDetected) Coronavirus 229E (PCR) Not Detected (NotDetected) SARS-CoV-2 (PCR) Not Detected (NotDetected) Coronavirus NL63 (PCR) Not Detected (NotDetected) Human Metapneumovir PCR Not Detected (NotDetected) Influenza Type A (PCR) Not Detected (NotDetected) Influenza Type B (PCR) Not Detected (NotDetected) M. pneumoniae (PCR) Not Detected (NotDetected) Parainfluenza 1 (PCR) Not Detected (NotDetected) Parainfluenza 2 (PCR) Not Detected (NotDetected) Parainfluenza 3 (PCR) Not Detected (NotDetected) Parainfluenza 4 (PCR) Not Detected (NotDetected) RSV (PCR) Not Detected (NotDetected) Entero/Rhino (PCR) Not Detected (NotDetected) Diagnostic Findings Exam(s): US GALLBLADDER EXAM: US Abdomen Limited, Gallbladder CLINICAL HISTORY: Elevated LFTs. TECHNIQUE: Real-time ultrasound of the right upper quadrant with image documentation. COMPARISON: Liver ultrasound 06/24/2023. FINDINGS: Liver: There is fatty infiltration of the liver. Stable ill-defined hypodensity of the left lobe of the liver. The liver measures 13.7 cm. Gallbladder: Cholelithiasis. Upper limits of normal gallbladder wall thickness. Common bile duct: The common bile duct is normal measuring 0.6 cm. No stones. No dilation. Pancreas: The pancreatic head and body are within normal limits. The tail is not visualized due to overlying bowel gas. Right kidney: The right kidney is unremarkable measuring 9.6 cm. IMPRESSION: 1. Cholelithiasis. Upper limits of normal gallbladder wall thickness. This could represent acute cholecystitis in the appropriate clinical setting. 2. There is fatty infiltration of the liver. Stable ill-defined hypodensity of the left lobe of the liver.
--- NOTE | 2024-01-14 16:31 | Electrocardiogram Report ---
Test Reason : Blood Pressure : / mmHG Vent. Rate : 097 BPM Atrial Rate : 097 BPM P-R Int : 130 ms QRS Dur : 074 ms QT Int : 366 ms P-R-T Axes : 054 035 042 degrees QTc Int : 464 ms Normal sinus rhythm Normal ECG When compared with ECG of 12-JAN-2024 16:07, No significant change was found Confirmed by Pernell Couch ([id number]) on 01/14/2024 4:31:15 PM Referred By: CLAYTON Confirmed By:Pernell Couch
[2024-01-14] MEDS: DAPTOmycin 200 MG in SYRINGE 0 ML IV SCH (17:57)
[2024-01-14 18:19] LABS: Appearance Urine Clear (Clear); Bacteria Urine Automated Negative (Negative); Bilirubin Urine Negative (Negative); Blood Urine Trace (Negative); Color Urine Yellow; Glucose Urine UA Negative (Negative); Ketones Urine Negative (Negative); Leukocyte Esterase Urine Negative (Negative); Nitrite Urine Negative (Negative); Protein Urine Negative (Negative); RBC Urine Automated 0-4 /hpf (0-4); Specific Gravity Urine 1.007 (1.000-1.030); Urobilinogen Urine Negative (Negative); WBC Urine Automated 0 /hpf (0-5); pH Urine 5.5 (4.5-7.5)
[2024-01-14] MEDS: ACETAMINOPHEN 325 MG TAB PO PRN (20:32)
[2024-01-14] MEDS: DICLOFENAC SOD 1% GEL 100 GM TUBE EXT PRN (23:09)
[2024-01-15 07:12] LABS: Basophils # (auto) 0.01 K/uL (0.00-0.20); Basophils % (auto) 0.2 %; Eosinophils # (auto) 0.36 K/uL (0.00-0.50); Eosinophils % (auto) 8.8 %; Hematocrit (blood only) 35.5 % (37.0-47.0); Hemoglobin 11.7 g/dl (12.0-16.0); Immature Granulocytes # (auto) 0.01 K/uL (0.01-0.20); Immature Granulocytes % (auto) 0.2 %; Lymphocytes # (auto) 1.28 K/uL (1.20-3.40); Lymphocytes % (auto) 31.1 %; Mean Corpuscular Hemoglobin 28.6 pg (25.0-34.0); Mean Corpuscular Volume 86.8 fL (80.0-100.0); Monocytes # (auto) 0.62 K/uL (0.11-0.59); Monocytes % (auto) 15.1 %; Neutrophils # (auto) 1.83 K/uL (1.40-6.50); Neutrophils % (auto) 44.6 %; Platelet Count 203 K/uL (130-400); RDW Coefficient of Variation 14.5 % (11.5-14.5); RDW Standard Deviation 46.2 fL (36.4-46.3); Red Blood Count 4.09 M/uL (4.20-5.40); White Blood Count 4.11 K/ul (4.8-10.8)
[2024-01-15 07:28] LABS: Albumin Globulin Ratio 1.2 (0.9-2); Albumin Level 3.4 gm/dl (3.4-5.0); BUN Creatinine Ratio 20.3 (10-20); Bilirubin,Total 0.7 mg/dl (0.2-1.0); C Reactive Protein 16.18 mg/dl (0-0.5); Calcium 8.8 mg/dl (8.6-10.3); Creatinine Clr Calc Pharmacy 30.5 ml/min; Est GFR (African American) 47.3 ml/min; Est GFR (Non-African American) 40.8 ml/min; Globulin 2.9 gm/dl (2.5-4.0); Potassium 3.5 mmol/L (3.5-5.1); Total Protein 6.3 gm/dl (6.0-8.3)
--- NOTE | 2024-01-15 10:36 | Hospitalist Progress Note ---
Date of Service January 15, 2024 Assessment & Plan (1) Bilateral lower leg cellulitis: Plan: Presented to the hospital with worsening bilateral cellulitis x 2 days Hx of bilateral cellulitis; there is also an element of venous stasis dermatitis Patient was at [place] ED on 01/12, but sent back to [place]; UA negative on 01/12 She returned to the ED with rigors on 01/13 Procalcitonin mildly elevated at 0.86 Elevated CRP at 10.34 Elevated ESR at 37 MRSA swab positive BioFire negative Initially started on daptomycin and Zosyn Await cultures The area of redness is improving (2) Transaminitis: Plan: Elevated AST at 64, ALT at 110, and alk phos at 283 Gallbladder ultrasound showed mild thickening of the gallbladder, suggestive of cholecystitis However clinically no evidence of cholecystitis Hepatitis panel pending General surgery consult, no surgical indication for now Zosyn 4.5 g IV q8h Repeat a.m. LFTs (3) Hypokalemia: Plan: Replaced (4) Acute on chronic diastolic CHF (congestive heart failure): Plan: BNP 400 Continue home Lasix 20mg daily Monitor input and output, daily weight (5) Aortic stenosis: Plan: Chronic; noted Plan Disposition: Continue to monitor hopefully discharge in next 48 hours Full code AHA diet VTE PPx: Lovenox 40 mg SQ q24h Admission and Anticipated Discharge Date Admission Date: January 13, 2024 Subjective Patient seen and examined, improving areas of redness bilateral lower extremitie s, complained of chills but no fever Review of Systems Review of Systems: All systems reviewed are negative, apart from the ones contained in the history. Physical Exam Physical Exam: The patient is awake, alert and oriented 3, well developed and well nourished, normocephalic and atraumatic, lying in bed and in no acute distress. HEENT--PERRL, EOMI, mucous membranes and oropharynx mildly dry Neck--supple. No JVD. No bruits. Thyroid normal, trachea midline, no adenopathy. Heart--normal S1 and S2. No murmurs, rubs or gallops. Lungs--clear bilaterally, no respiratory distress, no accessory muscle use. Abdomen--normal bowel sounds and soft. Extremities--no cyanosis or clubbing. Mild leg edema Dermatologic--bilateral lower extremity redness Neurologic--cranial nerves II through XII grossly intact. Rheumatologic--normal range of motion. Psychiatric--normal affect. Results & Data Results & Data Vital Signs (Past 12 Hours) Vital Signs Temp Pulse Resp BP Pulse Ox O2 Del Method 01/15/24 07:33 97.3 F L 77 16 115/53 L 98 Room Air PG Care Time/CCT Total # of Minutes Spent Total Time Spent with Patient: Total time spent is greater than 50% in coordination of care (as documented) at patient's floor/unit and/or counseling patient: Coding Level of Care Code 67564 SUB INP/OBS CARE 2/35MIN Diagnoses Bilateral lower leg cellulitis L03.116; L03.115 Transaminitis R74.01 Hypokalemia E87.6 Acute on chronic diastolic CHF (congestive heart failure) I50.33 Aortic stenosis I35.0 Time Spent (min) 35
[2024-01-16 08:28] LABS: Basophils # (auto) 0.03 K/uL (0.00-0.20); Basophils % (auto) 0.7 %; Eosinophils # (auto) 0.46 K/uL (0.00-0.50); Eosinophils % (auto) 10.3 %; Hematocrit (blood only) 35.5 % (37.0-47.0); Hemoglobin 11.5 g/dl (12.0-16.0); Immature Granulocytes # (auto) 0.01 K/uL (0.01-0.20); Immature Granulocytes % (auto) 0.2 %; Lymphocytes # (auto) 1.39 K/uL (1.20-3.40); Lymphocytes % (auto) 31.2 %; Mean Corpuscular Hemoglobin 28.4 pg (25.0-34.0); Mean Corpuscular Hgb Conc 32.4 g/dL (32.0-36.0); Mean Corpuscular Volume 87.7 fL (80.0-100.0); Mean Platelet Volume 8.8 fL (9.4-12.4); Monocytes # (auto) 0.58 K/uL (0.11-0.59); Neutrophils # (auto) 1.98 K/uL (1.40-6.50); Neutrophils % (auto) 44.6 %; Platelet Count 246 K/uL (130-400); RDW Coefficient of Variation 14.3 % (11.5-14.5); RDW Standard Deviation 46.2 fL (36.4-46.3); Red Blood Count 4.05 M/uL (4.20-5.40); White Blood Count 4.45 K/ul (4.8-10.8)
[2024-01-16 08:55] LABS: BUN Creatinine Ratio 18.8 (10-20); C Reactive Protein 7.78 mg/dl (0-0.5); Calcium 8.7 mg/dl (8.6-10.3); Creatinine Clr Calc Pharmacy 29.3 ml/min; Est GFR (African American) 45.1 ml/min; Est GFR (Non-African American) 38.9 ml/min; Potassium 3.8 mmol/L (3.5-5.1)
--- NOTE | 2024-01-16 12:20 | Hospitalist Progress Note ---
Date of Service January 16, 2024 Assessment & Plan (1) Bilateral lower leg cellulitis: Plan: Presented to the hospital with worsening bilateral cellulitis x 2 days Hx of bilateral cellulitis; there is also an element of venous stasis dermatitis Patient was at [place] ED on 01/12, but sent back to [place]; UA negative on 01/12 She returned to the ED with rigors on 01/13 Procalcitonin mildly elevated at 0.86 Elevated CRP at 10.34 Elevated ESR at 37 MRSA swab positive BioFire negative Initially started on daptomycin and Zosyn Await cultures The area of redness is improving Awaiting evaluation by physical therapy, patient lives at the [facility] (2) Transaminitis: Plan: On admission, elevated AST at 64, ALT at 110, and alk phos at 283 Gallbladder ultrasound showed mild thickening of the gallbladder, suggestive of cholecystitis However clinically no evidence of cholecystitis Hepatitis panel pending General surgery consult, no surgical indication for now Zosyn 4.5 g IV q8h Repeat a.m. LFTs (3) Hypokalemia: Plan: Replaced (4) Acute on chronic diastolic CHF (congestive heart failure): Plan: BNP 400 Continue home Lasix 20mg daily Monitor input and output, daily weight (5) Aortic stenosis: Plan: Chronic; noted Plan Disposition: Continue to monitor hopefully discharge in next 48 hours, awaiting evaluation by PT Full code AHA diet VTE PPx: Lovenox 40 mg SQ q24h Admission and Anticipated Discharge Date Admission Date: January 13, 2024 Subjective Patient seen and examined, improving areas of redness bilateral lower extremities, Review of Systems Review of Systems: All systems reviewed are negative, apart from the ones contained in the history. Physical Exam Physical Exam: The patient is awake, alert and oriented 3, well developed and well nourished, normocephalic and atraumatic, lying in bed and in no acute distress. HEENT--PERRL, EOMI, mucous membranes and oropharynx mildly dry Neck--supple. No JVD. No bruits. Thyroid normal, trachea midline, no adenopathy. Heart--normal S1 and S2. No murmurs, rubs or gallops. Lungs--clear bilaterally, no respiratory distress, no accessory muscle use. Abdomen--normal bowel sounds and soft. Extremities--no cyanosis or clubbing. Mild leg edema Dermatologic--bilateral lower extremity redness Neurologic--cranial nerves II through XII grossly intact. Rheumatologic--normal range of motion. Psychiatric--normal affect. Results & Data Results & Data Vital Signs (Past 12 Hours) Vital Signs Temp Pulse Resp BP Pulse Ox O2 Del Method 01/16/24 07:24 97.3 F L 89 16 109/61 96 Room Air PG Care Time/CCT Total # of Minutes Spent Total Time Spent with Patient: Total time spent is greater than 50% in coordination of care (as documented) at patient's floor/unit and/or counseling patient: Coding Level of Care Code 13867 SUB INP/OBS CARE 2/35MIN Diagnoses Bilateral lower leg cellulitis L03.116; L03.115 Transaminitis R74.01 Hypokalemia E87.6 Acute on chronic diastolic CHF (congestive heart failure) I50.33 Aortic stenosis I35.0 Time Spent (min) 35
[2024-01-17] MEDS: ENOXAPARIN INJ 30 MG/0.3 ML SYR SQ SCH (09:01)
--- NOTE | 2024-01-17 11:43 | Discharge Summary ---
Date of Service January 17, 2024 Admission HPI Per Admitting Provider Destini is an 83-year-old female with PMH of postherpetic neuralgia, paroxysmal A-fib, thyroid disease, essential tremor, gait disturbance, SIRS, CHF, aortic stenosis and anxiety with depression. She presented from [facility] for rigors and bilateral cellulitis on her lower extremities on 01/13. She reports that the redness started 2 days prior on 01/11. She denies itching or burning sensation, but notes it has been hot to touch. She reports a history of cellulitis over the past 3 years, and reports this happened about 6 times. She notes she has stasis dermatitis as well. She does not believe she took any medications today; [facility] manage her medications. She notes she has had 2 episodes of fever in the past couple days, which she believes was around 102 F. She denies alcohol and tobacco use. She denies lower extremity pain, but notes she has chronic right knee pain. Patient is mildly tachycardic at 100 bpm, and mildly febrile at 37.9 C at time of admission. ED course: NSS 1000 mL IV Cefepime Daptomycin 20 mg IV Tylenol 1000 mg p.o. Potassium chloride 40 mill equivalents p.o. ROS: Patient endorses intermittent fever x2, chills, urinary incontinence, and numbness/tingling in hands. Patient denies dizziness, lightheadedness, SERRANO chest pain, SOB, cough, abdominal pain, N/V/D, burning with urination, dysuria, blood in urine in stool, pain in legs, or N/T in legs. Principal Diagnosis Cellulitis of the lower extremities Discharge Exam The patient is awake, alert and oriented 3, well developed and well nourished, normocephalic and atraumatic, lying in bed and in no acute distress. HEENT--PERRL, EOMI, mucous membranes and oropharynx mildly dry Neck--supple. No JVD. No bruits. Thyroid normal, trachea midline, no adenopathy. Heart--normal S1 and S2. No murmurs, rubs or gallops. Lungs--clear bilaterally, no respiratory distress, no accessory muscle use. Abdomen--normal bowel sounds and soft. Extremities--no cyanosis or clubbing. Mild leg edema Dermatologic--bilateral lower extremity redness Neurologic--cranial nerves II through XII grossly intact. Rheumatologic--normal range of motion. Psychiatric--normal affect. Discharge Data Allergies Allergy/AdvReac Type Severity Reaction Status Date / Time No Known Allergies Allergy Verified 01/13/24 18:40 Consultations 01/13/24 22:10 Consult General Surgery Routine Procedures Performed Operation Date: 01/14/24 13:00 <No data on this case meets the specified criteria> Ordered Studies 01/13/24 18:18 gallbladder Stat Hospital Course (1) Bilateral lower leg cellulitis: Presented to the hospital with worsening bilateral cellulitis x 2 days Hx of bilateral cellulitis; there is also an element of venous stasis dermatitis Patient was at [facility] on 01/12, but sent back to [facility]; UA negative on 01/12 She returned to the ED with rigors on 01/13 Procalcitonin mildly elevated at 0.86 Elevated CRP at 10.34 Elevated ESR at 37 MRSA swab positive BioFire negative Initially started on daptomycin and Zosyn Cultures negative The area of redness is improving Discharge back to the [facility] on p.o. cephalexin 500 mg twice daily for 5 days (2) Transaminitis: On admission, elevated AST at 64, ALT at 110, and alk phos at 283 Gallbladder ultrasound showed mild thickening of the gallbladder, suggestive of cholecystitis However clinically no evidence of cholecystitis Hepatitis panel pending General surgery consult, no surgical indication for now Zosyn 4.5 g IV q8h Repeat a.m. LFTs (3) Hypokalemia: Replaced (4) Acute on chronic diastolic CHF (congestive heart failure): BNP 400 Continue home Lasix 20mg daily Monitor input and output, daily weight (5) Aortic stenosis: Chronic; noted Plan Disposition: Discharge back to the [facility] Full code AHA diet VTE PPx: Lovenox 40 mg SQ q24h Total Time Total Time Spent Total Time Spent (In Minutes): 35 Discharge Plan Discharge Items Patient Disposition: Transfer [facility] Fac Reason For Visit: CELLULITIS, RIGORS Discharge Diagnosis: Cellulitis, acute congestive heart failure Activity: Resume your previous activity Non-emergency contact: Primary Care Provider and Photographic Double Call non-emergency contact if: you have any medication questions Follow-up/Referrals: CLAYTON, [Primary Care Provider] - Diet: Regular Addtl Attending Provider Instructions: Please make appointment to follow-up with her regular PCP Pending Studies at Discharge: No Stand-Alone Forms: [facility] Skilled Items Patient informed of condition?: Yes DNR: No Discharge Level of Care: Skilled Communicable Disease: No Discharge Prognosis: Improving Lines: None Urinary Catheter: No Medications and DC Order Prescriptions: New cephalexin 500 mg capsule 500 mg PO BID 5 Days Qty: 10 0RF Continued hydroxyzine HCl 10 mg Tablet 10 - 20 mg PO DIRECTED PRN (Reason: Anxiety) multivitamin Tablet 1 tab PO DAILY lamotrigine 200 mg tablet 200 mg PO HS polyethylene glycol 3350 [Miralax] 17 gram Powder In Packet 17 g PO DAILY PRN (Reason: Constipation) omeprazole 40 mg capsule,delayed release(DR/EC) 40 mg PO DAILY acetaminophen [Tylenol Arthritis Pain] 650 mg Tablet Extended Release 650 mg PO TID PRN (Reason: Pain) levothyroxine 75 mcg tablet 75 mcg PO DAILY calcium carbonate [Tums Ultra] 400 mg calcium (1,000 mg) Tablet,Chewable 400 mg PO QID PRN (Reason: Indigestion) paroxetine HCl 30 mg tablet 30 mg PO HS simethicone 125 mg Tablet,Chewable 125 mg PO QID PRN (Reason: .gas) furosemide 20 mg tablet 20 mg PO DAILY nystatin [Nystop] 100,000 unit/gram powder 1 applic TOPICAL BID PRN (Reason: excoriation) oxybutynin chloride 5 mg tablet 2.5 mg PO BID hydroxyzine HCl 10 mg tablet 10 mg PO BID Rx Instructions: Give 1100 & 1700 hydroxyzine HCl 10 mg tablet 20 mg PO HS Rx Instructions: 2300 Systane Gel 0.3 % Gel 1 drp OPB 6XD PRN (Reason: Dry Eye(S)) calcium carbonate-vitamin D3 [Calcium 600 + D(3)] 600 mg-10 mcg (400 unit) Tablet 1 tab PO DAILY diclofenac sodium 1 % gel 4 g TOPICAL QID PRN (Reason: Pain) Rx Instructions: either knee omega 0-gsv-ajx-fish oil [Fish Oil] 1,200 (144-216) mg Capsule 1 cap PO DAILY melatonin 10 mg Tablet 10 mg PO HS PRN (Reason: Sleep) PreserVision AREDS-2 250-90-40-1 mg Capsule 1 tab PO BID guaifenesin [Mucinex] 600 mg Tablet Extended Release 12hr 600 mg PO DIRECTED MDD 4 TABLETS/24 HOURS PRN (Reason: Congestion) Saccharomyces boulardii [Florastor] 250 mg capsule 250 mg PO BID Qty: 20 0RF Rx Instructions: swallow whole ORDERED 01/12/24---NOT ON MEDICATION LIST FROM [facility]. Discontinued cephalexin 500 mg capsule 500 mg PO QID 7 Days Qty: 28 0RF Rx Instructions: ORDERED 01/12/24---NOT ON MEDICATION LIST FROM [facility]. doxycycline hyclate 100 mg tablet 100 mg PO BID 7 Days Qty: 14 0RF Rx Instructions: ORDERED 01/12/24---NOT ON MEDICATION LIST FROM [facility]. Discharge Orders: Discharge Order (Routine); Ordered 01/17/24 Ordered By: Ramon Haywood Admission Data Admit Date/Time: 01/13/24 20:10 Attending Provider: Ramon Haywood Admit Provider: Bharat Salguero Primary Care Provider: CLAYTON, Other Providers: Montserrat Millan Other Interventions: Discharge Summary Assessment (RN) Last Done: 01/17/24 10:56 Coding Level of Care Code 34520 INP/OBS DISCH >30 MIN Diagnoses Bilateral lower leg cellulitis L03.116; L03.115 Transaminitis R74.01 Hypokalemia E87.6 Acute on chronic diastolic CHF (congestive heart failure) I50.33 Aortic stenosis I35.0 Time Spent (min) 35
[2024-01-17] MEDS ORDERED: DAPTOmycin 200 MG in SYRINGE 0 ML IV SCH (11:45)
== END 2024-01-17 13:13 | disposition home or self-care (01) | DRG 602 ==
LOC: ED 16:01 → SUATTDRO 20:10 → 3N 20:10
DX: K80.20 Calculus of gallbladder without cholecystitis without obstruction; I35.0 Nonrheumatic aortic (valve) stenosis; I48.0 Paroxysmal atrial fibrillation; L30.8 Other specified dermatitis; E87.6 Hypokalemia; I50.33 Acute on chronic diastolic (congestive) heart failure; I87.2 Venous insufficiency (chronic) (peripheral); R74.01 Elevation of levels of liver transaminase levels; L03.116 Cellulitis of left lower limb; Z79.890 Hormone replacement therapy; E03.9 Hypothyroidism, unspecified; L03.115 Cellulitis of right lower limb

== ENCOUNTER 2024-09-30 15:19 | Inpatient (IN) ==
--- OUTSIDE RECORDS SUMMARY | 2024-09-30 15:25 | External Medical Summary | Summary of Care ---
Author Name Unknown Organization [facility] Address [address] [place] [address] Phone [phone] Care Team Providers Care Energy Attorney Name Role Phone Jeannette Lo MD Primary Care Provid er Encounter Details Date Type Department Care Team (Latest Contact Info) Description 09/11/2024 1:54 PM EDT - 09/11/2024 11:59 PM EDT Hospital Encounter Radiology, [facility] [address] [place] [address] Arrived Discharge Disposition: Home - Self Care Allergies No known active allergiesdocumented as of this encounter (statuses as of 09/12/2024) Medications Medication Sig Dispensed Refills Start Date End Date Status Fish Oil 1200 MG Oral Capsule Take 1,200 mg by mouth in the morning. (0800). Active SURGICAL COMPRESSION STOCKINGIndication s:Lipodermatoscler osis of both lower extremities Supply with one or two pair of below knee velcro compression devices 2 Each 11 05/18/2022 Active Furosemide 20 MG Oral Tablet (Lasix) Take 1 Tablet by mouth in the morning. (0800). 06/08/2023 Active Acetaminophen ER 650 MG Oral Tablet Extended Release (Tylenol ER) Take 1 Tablet by mouth every 8 hours as needed for Pain, Moderate. Active hydrOXYzine HCl 10 MG Oral Tablet (Atarax) Take 1 Tablet by mouth 2 times a day. (1100/1700). And 20 mg at bedtime. (2300) 360 Tablet 03/27/2024 Active PARoxetine HCl 30 MG Oral Tablet (Paxil) Take 1 Tablet by mouth at bedtime. (1999) 90 Tablet 03/27/2024 Active Acetaminophen 500 MG Oral Tablet (Tylenol) Take 2 Tablets by mouth every 6 hours as needed for Pain, Mild or Fever >38C(100.5F). 100 Tablet 03/27/2024 Active Simethicone 125 MG Oral Tablet Chewable Take 1 Tablet by mouth 4 times a day as needed for Gas. 90 Tablet 03/27/2024 Active Additional Information Patient not taking.Reported on 06/26/2024 Tums Ultra 1000 1000 MG Oral Tablet Chewable (Calcium Carbonate Antacid) Take 1 Tablet by mouth 4 times a day as needed for Heartburn (Indigestion). 90 Tablet 03/27/2024 Active Systane 0.4-0.3 % Ophthalmic Gel (Polyethyl Glycol-Propyl Glycol) Instill 1 Drop into both eyes every 4 hours as needed for Dry eyes. 10 mL 03/27/2024 Active Metoprolol Succinate ER 25 MG Oral Tablet Extended Release 24 Hour (toPROL XL) Take 1 Tablet by mouth in the morning. 90 Tablet 03/27/2024 Active lamoTRIgine 200 MG Oral Tablet (LaMICtal) Take 1 Tablet by mouth at bedtime. (1999) 90 Tablet 03/27/2024 Active Levothyroxine Sodium 75 MCG Oral Tablet (Synthroid) Take 1 Tablet by mouth in the morning. 1 hour before other meds or breakfast.. 90 Tablet 03/27/2024 Active Omeprazole 40 MG Oral Capsule Delayed Release (PriLOSEC) Take 1 Capsule by mouth in the morning. (0600). 90 Capsule 03/27/2024 Active oxyBUTYnin Chloride 5 MG Oral Tablet (Ditropan) Take 0.5 Tablets by mouth 2 times a day. (799/1999) 90 Tablet 03/27/2024 Active Melatonin 10 MG Sublingual Tablet Sublingual Take 3 mg by mouth at bedtime as needed for Sleep. 270 Tablet 3 03/27/2024 Active Daily-Priscila Oral Tablet Take 1 Tablet by mouth in the morning. (0800). 90 Tablet 3 03/27/2024 Active Calcium Carb-Cholecalcifer ol 600-10 MG-MCG Oral Tablet (Calcium + Vitamin D3) Take 1 Tablet by mouth in the morning. (0800). 90 Tablet 3 03/27/2024 Active Additional Information Patient not taking.Reported on 06/26/2024 PreserVision AREDS 2+Multi Vit Oral Capsule Take 1 Capsule by mouth 2 times a day. () 180 Capsule 3 03/27/2024 Active traMADol HCl 50 MG Oral Tablet (Ultram) Take 1 Tablet by mouth 3 times a day as needed. Active Oyster Shell 500 MG Oral Tablet Take by mouth. Active Naproxen Sodium 220 MG Oral Tablet (Aleve) Take 1 Tablet by mouth 2 times a day with morning and evening meals. Active Loperamide HCl 2 MG Oral Tablet (Imodium A-D) Take 1 Tablet by mouth 4 times a day as needed for Diarrhea. Active documented as of this encounter (statuses as of 09/12/2024) Active Problems Problem Noted Date Diagnosed Date Senile osteoporosis 03/05/2024 Preoperative cardiovascular examination 03/03/20 24 Nonrheumatic aortic valve stenosis 03/03/2024 Closed right hip fracture 03/02/2024 Fall 03/02/2024 Positive result for methicil todd resistant Staphylococcus aureus (MRSA) screening 01/23/2024 Chronic kidney disease, stage 3a 03/07/2023 Overview: [...] as of this encounter (statuses as of 09/12/2024) Resolved Problems Problem Noted Date Diagnosed Date Resolved Date Atrial fibrillation 04/02/2021 02/29/20 23 documented as of this encounter (statuses as of 09/12/2024) Immunizations Name Administration Dates Next Due COVID-19 mRNA, LNP-s, No Pre serve, 2-Dose Series (Moderna) 04/29/2021,03/10/2021 COVID-19, mRNA, LNP-s, PF, B ooster, 100mcg/0.5mg (Moderna) 05/11/2022,11/18/2021 Pneumococcal Conjugate Vaccine, 20-valent (Prevn ar20) 02/28/2023 TB Meme Test 04/13/2021,04/03/2021 TDAP, Age 7 and older, IM (Adacel) 03/28/2019 Zoster Vaccine Recombinant (Shingrix) 02/01/2020 ,07/29/2019 documented as of this encounter Social History Tobacco Use Types Packs/Day Years Used Date Smoking Tobacco: Never Passive Smoke Exposure: Past Smokeless Tobacco: Never Alcohol Use Standard Drinks/Week Comments Never 0 (1 standard drink = 0.6 oz pur e alcohol) PHQ-2 Answer Date Recorded PHQ Adult Total Score 0 05/18/2022 Personal Safety Answer Date Recorded Do you feel unsafe or have concerns for your saf ety? No 03/02/2024 Do you have concerns for you r family's safety? (Household - for ages 0-17 years) Not on file 03/02/2024 Utilities Answer Date Recorded Do you have trouble paying y our heating, water, or electric bill? No 03/02/2024 Is your family able to pay t he heat, water, or electric bill? (Household - for ages 0-17 years) Not on file 03/02/2024 Does your family have access to good internet? (Household - for ages 0-17 years) Not on file 03/02/2024 Social Connections Answer Date Recorded How often do you feel lonely or isolated from those around you? (Adult - for ages 18 years and over) Not on file 05/15/2024 Transportation Needs Answer Date Record ed READ ONLY Do you have troubl e getting a ride to medical visits or work? Never True 03/02/2024 Does your family have a hard time getting a ride to doctors visits? (Household - for ages 0-17 years) Not on file 03/02/2024 Has lack of transportation k ept you from medical appointments, meetings, work, or from getting things needed for daily living? Check all that apply. (Adult - for ages 18 years and over) Not on file 03/02/2024 Do you (or your family) have trouble finding or paying for a ride (transportation)? (Household - for ages 0-17 years) Not on file 03/02/2024 Housing Stability Answer Date Recorded Do you currently live in a s helter or have no steady place to sleep at night? (Adult - for ages 18 years and over) Not on file 03/02/2024 READ ONLY Do you think you a re at risk of becoming homeless? No 03/02/2024 Does your family worry about paying for your home or becoming homeless? (Household - for ages 0-17 years) Not on file 0 03/02/2024 Are you homeless or worried that you might be in the future? (Adult - for ages 18 years and over) Not on file Are you (or your family) gonzalo eless or worried that you might be in the future? (Household - for ages 0-17 years) Not on file Food Insecurity Answer Date Recorded Do you need food for this week? No 03/02/2024 Are you able to get enough f ood for your family? (Household - for ages 0-17 years) Not on file 03/02/2024 Does your family need food t his week? (Household - for ages 0-17 years) Not on file 03/02/2024 Do you always have enough fo od for your family? (Household - for ages 0-17 years) Not on file 03/02/2024 Sex and Gender Information Value Date Recorded Sex Assigned at Female 02/28/2023 3:05 PM EDT Gender Identity Female 02/28/2023 3:05 PM EDT Sexual Orientation Straight 02/28/2023 3: 05 PM EDT Job Start Date Occupation Industry Not on file Not on file Not on file documented as of this encounter Functional Status Functional Status Response Date of Assess ment Are you deaf or do you have serious difficulty hearing? No 03/02/2024 Are you blind or do you have serious difficulty seeing, even when wearing glasses? Yes-bourderline gluacoma per patient 03/02/2024 Do you have serious difficul ty walking or climbing stairs? (5 years old or older) No 03/02/2024 Do you have difficulty dress ing or bathing? (5 years old or older) No 03/02/2024 Because of a physical, menta l, or emotional condition, do you have difficulty doing errands alone such as visiting a doctor s office or shopping? (15 years old or older) No 03/02/2024 Cognitive Status Response Date of Assessm ent Because of a physical, menta l, or emotional condition, do you have serious difficulty concentrating, remembering, or making decisions? (5 years old or older) No 03/02/2024 documented as of this encounter Plan of Treatment Upcoming Encounters Date Type Department Care Team (Late st Contact Info) Description 02/15/2025 3:00 PM EDT Office Visit [facility] [address] [place] [address] Jeannette Lo MD [address] [place] [address] Health Maintenance Due Date Last Done Comments Albumin/Creatinine Ratio 1959 DXA Scan 1991 Adult Wellness Visit 2007 Depression Monitoring 05/18/2023 05/18/2022 *BISPHONATE OR OTHER ACCEPTABLE MEDICATION NEEDED FOR OSTEOPOROSIS (REFER TO SMARTSET #1146) 03/08/2024 COVID-19 Vaccine ( season) 2024 05/11/2022, 11/18/2021, 04/29/2021, Additional history exists Influenza Vaccine (FLU shot) (#1) 2024 GFR 09/19/2024 03/20/2024, 02/26, 03/08/2024, Additional history exists CKD PHOS USE SMARTSET 92945 03/05/2025 04/0 06/2024, 03/04/2024, 03/03/2024, Additional history exists CKD HGB USE SMARTSET 86297 03/20/202503/20, 03/13/2024, 03/08/2024, Additional history exists TSH 06/26/2025 06/26/2024, 02/27, 01/27/2023, Additional history exists DTap/Tdap Vaccines (2 - Td or Tdap) 03/28/2029 03/28/2019 Zoster Vaccines Completed 02/01/2020, 07/29/2019 Pneumococcal Vaccine: 65+ Years Completed 02/28/2023 VITAMIN D LEVEL ONCE IN A LIFETIME-USE SMARTSET# 26213 Completed 03/05/2024 HPV (Gardasil) Vaccine Aged Out No lo nger eligible based on patient's age to complete this topic Hepatitis B Vaccine Aged Out No longe r eligible based on patient's age to complete this topic MENINGOCOCCAL (MENACTRA/MENVEO) Aged Out No longer eligible based on patient's age to complete this topic documented as of this encounter Medical Devices Implanted Type Area Distribution Center Supervisor Device Identifier Shelf Expiration Date Model / Serial / Lot Nail Shrt Hfn 135deg [id number] - [id number] Implanted:Qty: 1 on 03/03/2024 [place] Jenna Wilkinson [place] [facility] [place] Leg Upper BIOMET : TRAUMA 03/14/2033 [id number] / / [id number] Screw Lag Hfn [id number] - [id number] Implanted:Qty: 1 on 03/03/2024 by Jenna Wilkinson [place] [facility] [place] Leg Upper BIOMET : TRAUMA 08/26/2030 [id number] / / [id number] Screw Lag Hfn [id number] - [id number] Implanted:Qty: 1 on 03/03/2024 by Jenna Wilkinson [place] [facility] [place] Leg Upper BIOMET : TRAUMA 10/15/2032 [id number] / / [id number] Screw Hfn Ar 70mm - [id number] Implanted:Qty: 1 on 03/03/2024 by Jenna Wilkinson [place] [facility] [place] Leg Upper BIOMET : TRAUMA 08/26/2032 [id number] / / [id number] Screw Hfn 5x32mm - [id number] Implanted:Qty: 1 on 03/03/2024 by Jenna Wilkinson [place] [facility] [place] Leg Upper BIOMET : TRAUMA 09/16/2032 [id number] / / [id number] documented as of this encounter Procedures Procedure Name Priority Date/Time Associated Diagnosis Comments XR HIP UNILAT 2-3 VIEWS INCLUDING AP PELVIS Routine 09/11/2024 2:15 PM EDT Closed fracture of right hip, initial encounter ([facility]) documented in this encounter Results * XR HIP UNILAT 2-3 VIEWS INCLUDING AP PELVIS (09/11/2024 2:15 PM EDT) Anatomical Region Laterality Modality Lower Extremity, Hip, Pelvis Com puted Radiography 09/12/2024 10:2 4 AM EDT Impressions 09/12/2024 10:22 AM EDT IMPRESSION ORIF of right intertrochanteric fracture. Stable alignment. Narrative 09/12/2024 10:22 AM EDT EXAM XR HIP UNILAT 2-3 VIEWS INCLUDING AP PELVIS-09/11/2024 2:15 pm HISTORY s/p rt hip COMPARISON Right hip radiographs dating 03/02/2024 through 05/22/2024. TECHNIQUE Two views of right hip. FINDINGS Postsurgical changes of ORIF of right intertrochanteric fracture is seen, transfixed with cephalomedullary nail. Fracture and hardware alignment is unchanged since recent radiographs dating 05/22/2024. Increased bony callus formation is seen at the fracture site. Right hip osteoarthritis with marginal osteophytes. Sacroiliac joint osteoarthritis. Atherosclerotic disease. Procedure Note Belkis Turner MD - 09/12/2024 EXAM XR HIP UNILAT 2-3 VIEWS INCLUDING AP PELVIS-09/11/2024 2:15 pm HISTORY s/p rt hip COMPARISON Right hip radiographs dating 03/02/2024 through 05/22/2024. TECHNIQUE Two views of right hip. FINDINGS Postsurgical changes of ORIF of right intertrochanteric fracture is seen,transfixed with cephalomedullary nail. Fracture and hardware alignment isunchanged since recent radiographs dating 05/22/2024. Increased bonycallus formation is seen at the fracture site. Right hip osteoarthritis with marginal osteophytes. Sacroiliac jointosteoarthritis. Atherosclerotic disease. IMPRESSION IMPRESSION ORIF of right intertrochanteric fracture. Stable alignment. Dion Perez MD RADIOLOGY (RAD GENER AL) documented in this encounter Advance Directives * Full Code (Latest Code Status on File) Date Activated Date Inactivated Comments 03/02/2024 7:52 PM 03/05/2024 7:40 PM This order ref lects the patients wishes and were consensually agreed upon. Question Answer Comments Discussion of Advance Direct ashly occurred with: Not Discussed due to patient's condition Care Teams Energy Attorney Relationship Specialty Start Date End Date Jeannette Lo MD [address] [place] [address] PCP - General Family Medicine 09/25/22 documented as of this encounter
--- OUTSIDE RECORDS SUMMARY | 2024-09-30 15:25 | External Medical Summary | Summary of Care ---
Author Name Unknown Organization [facility] Address [address] [place] [address] Phone [phone] Care Team Providers Care Milling Machine Operator Name Role Phone Jeannette Lo MD Primary Care Provid er Reason for Referral * Evaluate & Treat - Unlimited Visits (Within 3 days (urgent)) - Authorized Specialty Diagnoses / Procedures Referred By Juany goodwin Referred To Contact Physical Therapy / Physical Medicine And Rehab Diagnoses Closed fracture of right hip, initial encounter ([facility]) Delores Muñoz PA-C [address] [place] [address] Referral ID Status Reason Start Date Expiration Date Visits Requested Visits Authorized [id number] Authorized Specialty Services Required [phone] Question Answer Referral Priority Within 3 days (urgent) Where should this appointment be scheduled? [facility] Comments Right hip fracture from 6 months ago Needs strengthening, stretching, ambulation, balance Reason for Visit * Reason Comments Follow Up S/p right hip intra nailing Encounter Details Date Type Department Care Team (Late st Contact Info) Description 09/11/2024 2:30 PM EDT Office Visit Orthopaedics, [place] [address] [place] [address] Dion Perez MD [address] [place] [address] Closed fracture of right hip, initial encounter ([facility])* Allergies No known active allergiesdocumented as of this encounter (statuses as of 09/17/2024) Medications Medication Sig Dispensed Refills Start Date [...] as needed for Heartburn (Indigestion). 90 Tablet 3 03/27/2024 Active Systane 0.4-0.3 % Ophthalmic Gel (Polyethyl Glycol-Propyl Glycol) Instill 1 Drop into both eyes every 4 hours as needed for Dry eyes. 10 mL 03/27/2024 Active Metoprolol Succinate ER 25 MG Oral Tablet Extended Release 24 Hour (toPROL XL) Take 1 Tablet by mouth in the morning. 90 Tablet 3 03/27/2024 Active lamoTRIgine 200 MG Oral Tablet (LaMICtal) Take 1 Tablet by mouth at bedtime. (1999) 90 Tablet 3 03/27/2024 Active Levothyroxine Sodium 75 MCG Oral Tablet (Synthroid) Take 1 Tablet by mouth in the morning. 1 hour before other meds or breakfast.. 90 Tablet 3 03/27/2024 Active Omeprazole 40 MG Oral Capsule Delayed Release (PriLOSEC) Take 1 Capsule by mouth in the morning. (0600). 90 Capsule 3 03/27/2024 Active oxyBUTYnin Chloride 5 MG Oral Tablet (Ditropan) Take 0.5 Tablets by mouth 2 times a day. () 90 Tablet 3 03/27/2024 Active Melatonin 10 MG Sublingual Tablet [...] as of this encounter (statuses as of 09/17/2024) Active Problems Problem Noted Date Diagnosed Date [...] as of this encounter (statuses as of 09/17/2024) Resolved Problems Problem Noted Date Diagnosed Date Resolved Date Atrial fibrillation 04/02/2021 02/29/20 documented as of this encounter (statuses as of 09/17/2024) Immunizations Name Administration Dates Next Due COVID-19 [...] No 03/02/2024 documented as of this encounter Progress Notes * Delores Muñoz PA-C - 09/17/2024 9:34 AM EDT [facility] [address] Patient Name: Karina Howard DATE: 09/11/2024 PROCEDURE: Right femur short intramedullary nailing on 03/03/[address] Wilkinson. DIAGNOSIS: S72.001A Closed fracture of right hip, initial encounter ([facility]) (primary encounter diagnosis) HPI: 83F who presents 6 months s/p above procedure. Patient denies any pain in her right hip. She states that occasionally when she lays on that right side she can feel but other than that no pain. Her biggest complaint is feeling like her legs are in concrete. Once she stands she is having troublewalking until she gets going. She is mostly confined to a wheelchair for fear of falling. She was diagnosed with neuropathy but is unable to take neurontin. She is also dealing with a case of bilateral lower extremity cellulitis. She denies any fevers or chills. Unchanged numbness/tingling. She is living in an assisted living and has not had much PT. General ROS: no fever or chills, no drainage from incision, no shortness of breath, no chest pain, no calf pain, no redness around incision Pain is as expected, and well controlled with current management OE: GENERAL: NAD RESP: normal respiratory effort EXTREMITIES: RLE: dorsiflexion intact, plantarflexion intact, sensation intact, flexion intact, and extension intact. Sensation grossly intact. INCISION(S): well healed. Imaging reviewed with Dr. Perez demonstrates 2 cm of lateral lag screw cutout of right intramedullarynail, this is stable compared to Qing xrays. There is also collapse of fracture site but appears healed IMPRESSION: S/P right hip intramedullary nailing PLAN: WBAT b/l LE F/u PRN Pt needs to start PT SNF needs to treat cellulitis Patient seen and discussed with Dr. Chris Muñoz PA-C 09/17/2024 9:39 AM CC: (1) Jeannette Lo MD (2) Jeannette Lo MD Encounter No. : [id number] (2) Jeannette Lo MD * Dion Perez MD - 09/12/2024 2:34 PM EDT CLINIC NOTES Orthopaedics, [address] [place] [address] Karina Howard : 1940 09/11/2024 Karina Howard is a 83 year old female who here 3 months status post open reduction internal fixation of right hip fracture with a fixed this type nail. She was doing very well she was neurovascularly intact surgical incision is well healed no evidence any infection. X-rays taken and reviewed by me demonstrate stable intertrochanteric hip fracture with good alignment. Examination she has got excellent range of motion of the hip and knee she was otherwise neurovascularly intact we will see the patient back on a p.r.n. basis saw the above patient with [place] Muñoz agree with the findings Dion Perez MD 09/12/2024 2:34 PM documented in this encounter Plan of Treatment Upcoming Encounters Date Type Department Care Team (Late st Contact Info) Description 02/15/2025 3:00 PM EDT Office Visit [facility] [address] [place] [address] Jeannette Lo MD [address] [place] [address] Scheduled Referrals Name Type Priority Associated Diagnoses Orde r Schedule PHYSICAL THERAPY REFERRAL OP Referral Within 3 days (urgent) Closed fracture of right hip, initial encounter (HCC) Ordered: 09/11/2024 Health Maintenance Due Date Last Done Comments Albumin/Creatinine Ratio 1959 DXA Scan 1991 Adult Wellness Visit 2007 Depression Monitoring 05/18/2023 05/18/2022 *BISPHONATE OR OTHER ACCEPTABLE MEDICATION NEEDED FOR OSTEOPOROSIS (REFER TO SMARTSET #1146) 03/08/2024 COVID-19 Vaccine ( season) 2024 05/11/2022, 11/18/2021, 04/29/2021, Additional history exists Influenza Vaccine (FLU shot) (#1) 2024 GFR 09/19/2024 03/20/2024, 02/26, 03/08/2024, Additional history exists CKD PHOS USE SMARTSET 27298 03/05/202506/2024, 03/04/2024, 03/03/2024, Additional history exists CKD HGB USE SMARTSET 20190 03/20/202503/20, 03/13/2024, 03/08/2024, Additional history exists TSH 06/26/2025 06/26/2024, 02/27, 01/27/2023, Additional history exists DTap/Tdap Vaccines (2 - Td or Tdap) 03/28/2029 03/28/2019 Zoster Vaccines Completed 02/01/2020, 07/29/2019 Pneumococcal Vaccine: 65+ Years Completed 02/28/2023 VITAMIN D LEVEL ONCE IN A LIFETIME-USE SMARTSET# 63538 Completed 03/05/2024 HPV (Gardasil) Vaccine Aged Out No lo nger eligible based on patient's age to complete this topic Hepatitis B Vaccine Aged Out No longe r eligible based on patient's age to complete this topic MENINGOCOCCAL (MENACTRA/MENVEO) Aged Out No longer eligible based on patient's age to complete this topic documented as of this encounter Medical Devices Implanted Type Area Multi Sensor Operator Device Identifier Shelf Expiration Date Model / Serial / Lot Nail Shrt Hfn 135deg [id number] - [id number] Implanted:Qty: 1 on 03/03/2024 by Jenna Wilkinson [place] [facility] [place] Leg Upper [employer] : TRAUMA 03/14/2033 [id number] / / [id number] Screw Lag Hfn [id number] - [id number] Implanted:Qty: 1 on 03/03/2024 by Jenna Wilkinson DO [place] [facility] [place]: Leg Upper [employer] : TRAUMA 08/26/2030 [id number] / / [id number] Screw Lag Hfn [id number] - [id number] Implanted:Qty: 1 on 03/03/2024 by Jenna Wilkinson DO [place] [facility] [place]: Leg Upper BIOMET : TRAUMA 10/15/2032 [id number] / / [id number] Screw Hfn Ar 70mm - [id number] Implanted:Qty: 1 on 03/03/2024 by Jenna Wilkinson DO at [place] [facility] [place]: Leg Upper BIOMET : TRAUMA 08/26/2032 [id number] / / [id number] Screw Hfn 5x32mm - [id number] Implanted:Qty: 1 on 03/03/2024 by Jenna Wilkinson DO at [place] [facility] [place]: Leg Upper BIOMET : TRAUMA 09/16/2032 [id number] / / [id number] documented as of this encounter Procedures Procedure Name Priority Date/Time Associated Diagnosis Comments XR HIP UNILAT 2-3 VIEWS INCLUDING AP PELVIS Routine 09/11/2024 2:15 PM EDT Closed fracture of right hip, initial encounter (HCC) documented in this encounter Results * XR [...] (RAD GENER AL) documented in this encounter Visit Diagnoses Diagnosis Closed fracture of right hip, initial encounter (HCC)- Primary documented in this encounter Advance Directives * Full Code (Latest Code Status on File) Date Activated Date Inactivated Comments 03/02/2024 7:52 PM 03/05/2024 7:40 PM This order ref lects the patients wishes and were consensually agreed upon. Question Answer Comments Discussion of Advance Direct ashly occurred with: Not Discussed due to patient's condition Care Teams Milling Machine Operator Relationship Specialty Start Date End Date Jeannette Lo MD [address] [place] [address] PCP - General Family Medicine 09/25/22 documented as of this encounter
--- NOTE | 2024-09-30 15:46 | Emergency Department Note ---
Impression & Plan Elevated troponin, Right hand weakness, Anemia ED Provider Note NAME: JAMES AMOS AGE: 83 SEX: F : 1940 ARRIVES VIA: Ambulance INFORMANT: Patient, Nursing report ED PROVIDER(S): Ozzie Corona MD CHIEF COMPLAINT: Right hand weakness MEDICAL DECISION MAKING: Patient presents due to concern for difficulty with moving the acute right wrist noted to patient ordered IV Rocephin due to concern for bilateral lower extremity cellulitis. Have some decreased director of public safety strength as well as difficulty with dorsiflexion of the right wrist. IV was established and blood work was obtained along with CT head CT cervical spine as well as CT angiography of the head and neck. Not a thrombolytic candidate given 3 days of symptoms. Patient's blood work shows a normal white count mild anemia hemoglobin 11.7 normal platelet count kidney functions unremarkable with normal electrolytes. Initial troponin is 72. More prominent T waves in V2 but no obvious STEMI. The patient does not endorse any chest pain or shortness of breath. Urinalysis negative for blood or infection. Chest x-ray with no acute changes. CT head and cervical spine as well as CT angiography of the head and neck are negative with exception of reported pulmonary edema seen on CT cervical spine. Patient does not complain of any shortness of breath. Given the patient's positive troponin with right hand weakness I did speak with the on-call hospitalist service and the patient was admitted by Dr. Dubois. Discussion w/ other healthcare providers: Dr. Dubois inpatient medicine service Prior /Outside records reviewed: None Differential diagnosis: Infection, dehydration, metabolic abnormality, hypo/hyperglycemia, electrolyte imbalance, anemia, UTI, pneumonia, thyroid dysfunction among others were considered. Diagnostics, as interpreted by me: ECG: Normal sinus rhythm, rate of 71, normal intervals, normal axis no ST elevations. Prominent T waves. Cardiac monitoring: An order was placed for continuous cardiac monitoring. The monitor shows a rate of 72 with sinus rhythm. Patient was placed on pulse oximetry Medical decision rules: None Imaging studies: I informally interpreted the patient's CT head does not show obvious ICH with formal report to follow. HPI: Patient presents due to concern for weakness in the right wrist. Patient denies any history of stroke or mini stroke. The patient states she initially might of had some right-sided neck pain but this does not seem to be present currently. The patient denies any falls or trauma. Patient reportedly resides at [facility] and has had symptoms for 3 days been fairly chronic. She thinks that she might have some slight progressive worsening. The patient might have some slight decreased in director of public safety strength but primarily has difficulty with picking her wrist up. Patient denies any current head or neck pain no falls or trauma. She does not take any blood thinner medications. Patient denies any numbness. PAST MEDICAL HISTORY: See Below PAST SURGICAL HISTORY: See Below SOCIAL HISTORY: See Below HOME MEDICATIONS: See Below ALLERGIES: See Below VITALS: See Below PHYSICAL EXAMINATION: GENERAL: NAD, non-toxic. EYE EXAM: Normal conjunctiva. PERRL, no anisocoria and EOM's grossly intact w/o pain. OROPHARYNX: Moist mucus membranes, grossly normal dentition. NECK: Trachea midline, no stridor. Supple, no nuchal rigidity, no adenopathy, non-tender. No signs of meningismus. FROM of the neck with good chin to chest and neck extension. LUNGS: Clear to auscultation. Normal chest wall mechanics. HEART: NSR, no MRG. ABDOMEN: Abdomen soft, non-tender, no masses, no rebound or guarding. BACK: No CVA TTP. SKIN: No rashes and no bruising. UPPER EXTREMITIES: Upper extremities are grossly normal. LOWER EXTREMITIES: Bilateral lower extremity erythema with calor, compartments are soft neuro intact distally. No crepitus. NEURO EXAM: A&O x3, cranial nerves II-XII grossly intact, normal speech, moves all 4 extremities but with slightly decreased director of public safety strength of the right hand as well as slight Past Med/Surg History Problem List (Updated 09/30/24 @ 21:59 by Ozzie Corona MD) Anemia (Acute) Right hand weakness (Acute) Elevated troponin (Acute) Cholelithiasis Hypokalemia Fever (Acute) Rigors (Acute) Cellulitis (Acute) Elevated LFTs Dyspepsia Pain of right heel Transaminitis (Acute) CRP elevated (Acute) Elevated erythrocyte sedimentation rate (Acute) Cellulitis of left lower leg (Acute) Cellulitis of right lower leg (Acute) Bilateral lower leg cellulitis (Acute) Leukocytosis (Acute) SIRS (systemic inflammatory response syndrome) (Acute) Right knee pain Aortic stenosis Hypoxia JOSEFINA (acute kidney injury) Depression with anxiety Swelling of both lower extremities Cellulitis (Acute) Sensory polyneuropathy Falling Gait disturbance (Acute) Essential tremor Traumatic ulceration of tongue Thyroid disease COVID-19 (Acute) Fracture, thoracic vertebra (Acute) COVID-19 virus infection Paroxysmal atrial fibrillation with RVR (Acute) Heart murmur Patient will be scheduled for an echocardiogram she is no recollection of being told that she had a heart murmur Postherpetic neuralgia (Chronic) Rib fracture (Acute) Weakness (Acute) Medical History Chronic renal insufficiency Diastolic heart failure Sepsis Stasis dermatitis Cellulitis Elevated liver enzymes Degenerative arthritis Cellulitis Anxiety Hypothyroidism Surgical History S/P cataract surgery Family History Father , age 76 of metastatic prostate cancer Cancer Prostate cancer Heart disease Mother , age 93 Rheumatoid arthritis Social History Smoking Status: Never smoker Second Hand Exposure: No; Do You Dip or Chew Tobacco: No; Hx Alcohol Use: No Hx Substance Use: No Preferred Language: Occitan Communication Ability: Effective 3Rd Grade Teacher Required: No Beliefs That Will Affect Care: Moravian marital status: Single Current Living Situation: Skilled Nursing Current Living Situation Comment: Lives at [facility] current occupational status: retired 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57 How many Children do You have: 0 Feels Safe at Home: Yes Assistive Devices: Wheelchair Allergies Allergies Allergy/AdvReac Type Severity Reaction Status Date / Time No Known Allergies Allergy Verified 09/30/24 18:34 Home Meds Home Medications Medication Instructions Recorded Confirmed artificial tears(hypromellose) 0.3 1 drp OPB Q4H PRN Dry Eye(S) 01/12/24 09/30/24 % eye gel (Systane Gel) hydroxyzine HCl 10 mg tablet 10 mg PO BID 01/12/24 09/30/24 hydroxyzine HCl 10 mg tablet 20 mg PO HS 01/12/24 09/30/24 lamotrigine 200 mg tablet 200 mg PO HS 01/12/24 09/30/24 levothyroxine 75 mcg tablet 75 mcg PO DAILY 01/12/24 09/30/24 multivitamin 1 tab PO DAILY 01/12/24 09/30/24 omeprazole 40 mg capsule,delayed 40 mg PO DAILYBB 01/12/24 09/30/24 release oxybutynin chloride 5 mg tablet 2.5 mg PO BID 01/12/24 09/30/24 paroxetine HCl 30 mg tablet 30 mg PO HS 01/12/24 09/30/24 simethicone 125 mg chewable tablet 125 mg PO QID PRN .gas 01/12/24 09/30/24 vit C 250 mg-vit E 90 mg-zinc 40 1 tab PO BID 01/12/24 09/30/24 mg-copper 1 [id number] capsule (PreserVision AREDS-2) hydroxyzine HCl 10 mg tablet 10 - 20 mg PO DIRECTED PRN 01/13/24 09/30/24 Anxiety/Mood acetaminophen 500 mg capsule 500 mg PO Q8H PRN Pain 09/30/24 09/30/24 calcium 500 mg (as 1 tab PO DAILY 09/30/24 09/30/24 carbonate)-vitamin D3 5 mcg (200 unit) tablet (Oyster Shell Calcium-Vitamin D3) calcium carbonate (Calcium Antacid) 1,000 mg PO QID PRN Heartburn 09/30/24 09/30/24 loperamide 2 mg capsule (Imodium 2 - 4 mg PO .SEEASDIRECTED 09/30/24 09/30/24 A-D) melatonin 3 mg disintegrating 3 mg PO HS PRN Insomnia 09/30/24 09/30/24 tablet metoprolol succinate 25 mg 25 mg PO DAILY 09/30/24 09/30/24 tablet,extended release 24 hr naproxen sodium 220 mg tablet 220 mg PO BID PRN Pain 09/30/24 09/30/24 tramadol 50 mg tablet 50 mg PO TID PRN LEG PAIN 09/30/24 09/30/24 Results & Data (ED) Vital Signs Vital Signs - 24 hr 09/30/24 15:24 09/30/24 15:30 09/30/24 15:42 Temperature 37 C Temperature Source Oral Pulse Rate 70 70 74 Pulse Rate [Apical] Respiratory Rate 22 21 18 Respiratory Effort / Characteristics Non-Labored Spontaneous Respiratory Depth Normal Respiratory Pattern Regular Blood Pressure 152/74 H Blood Pressure [Right Arm] Blood Pressure Mean 100 Blood Pressure Mean [Right Arm] Pulse Oximetry 100 100 Oxygen Delivery Method Room Air Room Air Sepsis Recent Fever Within 48 Hours No Sepsis New/Unexplained Change in Mental Status N/A Sepsis Action Taken by Nursing No Action Required 09/30/24 15:51 09/30/24 15:52 09/30/24 16:30 Temperature Temperature Source Pulse Rate 73 70 75 Pulse Rate [Apical] Respiratory Rate 14 Respiratory Effort / Characteristics Respiratory Depth Respiratory Pattern Blood Pressure Blood Pressure [Right Arm] Blood Pressure Mean Blood Pressure Mean [Right Arm] Pulse Oximetry 98 Oxygen Delivery Method Room Air Sepsis Recent Fever Within 48 Hours Sepsis New/Unexplained Change in Mental Status Sepsis Action Taken by Nursing 09/30/24 16:45 09/30/24 17:30 09/30/24 17:45 Temperature Temperature Source Pulse Rate 78 78 Pulse Rate [Apical] 76 Respiratory Rate 23 24 24 Respiratory Effort / Characteristics Non-Labored Spontaneous Respiratory Depth Normal Respiratory Pattern Blood Pressure Blood Pressure [Right Arm] 148/62 H Blood Pressure Mean Blood Pressure Mean [Right Arm] 90 Pulse Oximetry 100 100 Oxygen Delivery Method Room Air Room Air Sepsis Recent Fever Within 48 Hours Sepsis New/Unexplained Change in Mental Status Sepsis Action Taken by Nursing 09/30/24 18:15 09/30/24 18:21 09/30/24 18:36 Temperature Temperature Source Pulse Rate 79 81 79 Pulse Rate [Apical] Respiratory Rate 21 14 20 Respiratory Effort / Characteristics Respiratory Depth Respiratory Pattern Blood Pressure 137/62 Blood Pressure [Right Arm] Blood Pressure Mean 87 Blood Pressure Mean [Right Arm] Pulse Oximetry 99 95 94 Oxygen Delivery Method Room Air Room Air Room Air Sepsis Recent Fever Within 48 Hours Sepsis New/Unexplained Change in Mental Status Sepsis Action Taken by Nursing 09/30/24 18:42 09/30/24 18:54 09/30/24 19:05 Temperature Temperature Source Pulse Rate 72 74 Pulse Rate [Apical] Respiratory Rate 18 Respiratory Effort / Characteristics Respiratory Depth Respiratory Pattern Blood Pressure Blood Pressure [Right Arm] 141/78 H Blood Pressure Mean Blood Pressure Mean [Right Arm] 99 Pulse Oximetry 93 96 Oxygen Delivery Method Room Air Room Air Sepsis Recent Fever Within 48 Hours Sepsis New/Unexplained Change in Mental Status Sepsis Action Taken by Nursing 09/30/24 19:38 09/30/24 19:45 09/30/24 20:00 Temperature Temperature Source Pulse Rate 74 73 79 Pulse Rate [Apical] Respiratory Rate 17 19 Respiratory Effort / Characteristics Respiratory Depth Respiratory Pattern Blood Pressure Blood Pressure [Right Arm] Blood Pressure Mean Blood Pressure Mean [Right Arm] Pulse Oximetry 93 95 Oxygen Delivery Method Room Air Room Air Sepsis Recent Fever Within 48 Hours Sepsis New/Unexplained Change in Mental Status Sepsis Action Taken by Nursing 09/30/24 20:27 09/30/24 20:30 09/30/24 21:07 Temperature Temperature Source Pulse Rate 79 74 Pulse Rate [Apical] 76 Respiratory Rate 23 19 18 Respiratory Effort / Characteristics Non-Labored Spontaneous Respiratory Depth Normal Respiratory Pattern Regular Blood Pressure Blood Pressure [Right Arm] 157/75 H Blood Pressure Mean Blood Pressure Mean [Right Arm] 102 Pulse Oximetry Oxygen Delivery Method Sepsis Recent Fever Within 48 Hours Sepsis New/Unexplained Change in Mental Status Sepsis Action Taken by Nursing 09/30/24 21:39 Temperature Temperature Source Pulse Rate 91 H Pulse Rate [Apical] Respiratory Rate 21 Respiratory Effort / Characteristics Respiratory Depth Respiratory Pattern Blood Pressure Blood Pressure [Right Arm] Blood Pressure Mean Blood Pressure Mean [Right Arm] Pulse Oximetry Oxygen Delivery Method Sepsis Recent Fever Within 48 Hours Sepsis New/Unexplained Change in Mental Status Sepsis Action Taken by Skilled Nursing Medications Current Medication List: was personally reviewed by me Laboratory Data Attestation: I reviewed the patient's lab results. 09/30/24 15:30 09/30/24 15:30 Lab Results 09/30/24 09/30/24 09/30/24 Range/Units 15:30 17:36 17:50 WBC 7.22 (4.8-10.8) K/ul RBC 3.88 L (4.20-5.40) M/uL Hgb 11.7 L (12.0-16.0) g/dl Hct 36.1 L (37.0-47.0) % MCV 93.0 (80.0-100.0) fL MCH 30.2 (25.0-34.0) pg MCHC 32.4 (32.0-36.0) g/dL RDW Std Deviation 44.4 (36.4-46.3) fL RDW Coeff of Benita 13.0 (11.5-14.5) % Plt Count 290 (130-400) K/uL MPV 8.5 L (9.4-12.4) fL Immature Gran % (Auto) 0.3 % Neut % (Auto) 55.7 % Lymph % (Auto) 29.1 % [place] % (Auto) 9.6 % Eos % (Auto) 4.7 % Baso % (Auto) 0.6 % Neut # (Auto) 4.03 (1.40-6.50) K/uL Lymph # (Auto) 2.10 (1.20-3.40) K/uL [place] # (Auto) 0.69 H (0.11-0.59) K/uL Eos # (Auto) 0.34 (0.00-0.50) K/uL Baso # (Auto) 0.04 (0.00-0.20) K/uL Immature Gran # (Auto) 0.02 (0.01-0.20) K/uL Sodium 137 (136-145) mmol/L Potassium 4.0 (3.5-5.1) mmol/L Chloride 102 (98-107) mmol/L Carbon Dioxide 29 (21-32) mmol/L Anion Gap 6 (3-11) BUN 15 (6-23) mg/dl Creatinine 0.84 (0.6-1.2) mg/dl Est Cr Clr Drug Dosing 43.9 ml/min eGFR 69.34 BUN/Creatinine Ratio 17.9 (10-20) Glucose 85 (70-99(Fasting)) mg/dl Calcium 9.2 (8.6-10.3) mg/dl Magnesium 1.8 (1.7-2.4) mg/dl Total Bilirubin 1.0 (0.2-1.0) mg/dl AST 29 (13-39) U/L ALT 31 (7-52) U/L Alkaline Phosphatase 240 H (34-104) U/L Troponin I High Sens 72.1 H* 76.1 H* (0-14) pg/ml Total Protein 6.9 (6.0-8.3) gm/dl Albumin 3.7 (3.4-5.0) gm/dl Globulin 3.2 (2.5-4.0) gm/dl Albumin/Globulin Ratio 1.2 (0.9-2) TSH 1.912 (0.300-4.500) uIu/ml Urine Color Yellow Urine Appearance Clear (Clear) Urine pH 7.5 (4.5-7.5) Ur Specific [place] 1.019 (1.000-1.030) Urine Protein Negative (Negative) Urine Glucose (UA) Negative (Negative) Urine Ketones Trace H (Negative) Urine Blood Negative (Negative) Urine Nitrite Negative (Negative) Urine Bilirubin Negative (Negative) Urine Urobilinogen Negative (Negative) Ur Leukocyte Esterase Negative (Negative) Administered Medications Discontinued Medications Ceftriaxone Sodium (Rocephin) 2,000 mg in 50 mls @ 100 mls/hr IV NOW STA Stop: 09/30/24 16:40 Last Infusion: 09/30/24 18:24 Dose: Infused Documented By: Admin: 09/30/24 17:45 Dose: 100 mls/hr Documented By: LUCY Acetaminophen (Ofirmev) 1,000 mg in 100 mls @ 400 mls/hr IV NOW STA Stop: 09/30/24 17:43 Last Infusion: 09/30/24 17:52 Dose: Infused Documented By: Admin: 09/30/24 17:41 Dose: 400 mls/hr Documented By: LUCY Ioversol (Optiray 320 125ml) 118 ml IV ONCE ONE Stop: 09/30/24 17:02 Last Admin: 09/30/24 17:02 Dose: 118 ml Documented By: CRISSY Methylprednisolone (Methylprednisolone 125 Mg/2 Ml Vial) 60 mg IV NOW STA Stop: 09/30/24 20:13 Last Admin: 09/30/24 20:22 Dose: 60 mg Documented By: EMMY Imaging Data Radiologist's Impression: Chest X-Ray 09/30/24 00:00 EXAM: Radiograph of the Chest 1 View INDICATION: Weakness. TECHNIQUE: Frontal view of the chest. COMPARISON: 03/02/2024 FINDINGS: Lungs and pleural spaces: Stable coarse, symmetrical chronic appearing interstitial scarring. No consolidation or pulmonary edema. No pleural effusion or pneumothorax. Heart: Stable prominent cardiac shadow. Mediastinum: Probable small sliding hiatal hernia. Bones/joints: No change internally fixed healed fracture of the left proximal humerus and old left lateral approximate ninth rib fracture. No acute osseous abnormality. Soft tissues: No abnormality noted. No radiopaque foreign body noted. Upper abdomen: No abnormality noted. IMPRESSION: Stable chronic changes. No acute disease. ACT 112: Negative or not required by law. Electronically signed by Kenia Pelayo 09-30-2024 4:[address] 09/30/24 15:44 EXAM: CT Angiography Neck With Intravenous Contrast INDICATION: Right upper extremity weakness. TECHNIQUE: Routine carotid CT angiography protocol was performed with intravenous contrast. NASCET criteria using the distal ICAs for comparison were used for evaluation of stenoses. Sagittal and coronal reformatted images were created and reviewed. This CT exam was performed using one or more of the following dose reduction techniques: automated exposure control, adjustment of the mA and/or kV according to patient size, and/or use of iterative reconstruction technique. MIP reconstructed images were created and reviewed. CONTRAST: 118ml of Optiray 320 was administered intravenously. COMPARISON: None. FINDINGS: Limitations: Portions of the oral cavity are obscured by dental artifact. VASCULATURE: Right common carotid artery: No abnormality noted. No occlusion or significant stenosis. No dissection. Right internal carotid artery: Tortuous. There is minimal calcific plaque at the bulb. Extracranial segment is patent with no occlusion or significant stenosis. No dissection. Right external carotid artery: No abnormality noted. No occlusion. Right vertebral artery: No abnormality noted. No occlusion or significant stenosis. No dissection. Left common carotid artery: No abnormality noted. No occlusion or significant stenosis. No dissection. Left internal carotid artery: Tortuous. Extracranial segment is patent with no occlusion or significant stenosis. No dissection. Left external carotid artery: No abnormality noted. No occlusion. Left vertebral artery: No abnormality noted. No occlusion or significant stenosis. No dissection. NECK: Bones/joints: No acute or atypical chronic changes. Soft tissues: No abnormality noted. Lymph nodes: There are few reactive mediastinal lymph nodes. No pathologically enlarged lymph nodes identified. Lung apices: There is diffuse septal thickening typical of pulmonary edema. Probable underlying chronic interstitial component. No visible pneumothorax. CAROTID STENOSIS REFERENCE USING NASCET CRITERIA: % ICA stenosis = (1 - narrowest ICA diameter/diameter of distal cervical ICA) x 100. Mild - <50% stenosis. Moderate - 50-69% stenosis. Severe - 70-94% stenosis. Near occlusion - 95-99% stenosis. Occluded - 100% stenosis. IMPRESSION: 1. No significant arterial abnormality in the neck. 2. Pulmonary edema ACT 112: Positive. There are findings on this exam that require communication between the performing entity and the patient following Patient Test Result Information Act ([place] ACT 112) guidelines. Electronically signed by Kenia Pelayo 09-30-2024 5:[address] 09/30/24 15:44 EXAMINATION: Head CT without CLINICAL HISTORY: Right wrist weak to dorsiflex and slight director of public safety strength PRIORS: 03/02/2024, 12/08/[address] TECHNIQUE: Contiguous axial images were obtained through the head without the use of intravenous contrast. Sagittal and coronal reformations are supplied. FINDINGS: Dental amalgam appropriate parenchymal volume is noted. Age-appropriate parenchymal volume. West-white differentiation is preserved. No edema or midline shift. Scattered periventricular lucency present favoring small vessel occlusive disease. No intra-axial or extra-axial hemorrhage. Ventricles are normal in size and configuration. Brainstem and cerebellum have a normal appearance. Calvarium unremarkable. Paranasal sinuses and mastoid air cells are well-pneumatized. Globes are intact. No retrobulbar abnormality. IMPRESSION: No CT evidence of an acute intracranial abnormality. Electronically signed by Bárbara Oneill 09-30-2024 5:27 PM Head CTA 09/30/24 15:44 EXAM: CTA head with CLINICAL HISTORY: Right wrist weakness TECHNIQUE: Contiguous CTA axial images were obtained through the head after the administration of intravenous contrast. Sagittal and coronal reformations are supplied. PRIORS: None FINDINGS: The vertebral arteries form the basilar artery at the skull base. [place] of [place] is patent. No thrombus or hemodynamically significant stenosis. No aneurysmal dilatation or frazier aneurysm. No enhancing mass in the brain. IMPRESSION: No CTA evidence of an acute vascular abnormality. Electronically signed by Bárbara Oneill 09-30-2024 5:27 PM Neck CTA 09/30/24 15:44 EXAM: CT Angiography Neck With Intravenous Contrast INDICATION: History Reason For Study TECHNIQUE: Routine carotid CT angiography protocol was performed with intravenous contrast. NASCET criteria using the distal ICAs for comparison were used for evaluation of stenoses. Sagittal and coronal reformatted images were created and reviewed. This CT exam was performed using one or more of the following dose reduction techniques: automated exposure control, adjustment of the mA and/or kV according to patient size, and/or use of iterative reconstruction technique. MIP reconstructed images were created and reviewed. CONTRAST: 118ml of Optiray 320 was administered intravenously. COMPARISON: None. FINDINGS: VASCULATURE: Right common carotid artery: No abnormality noted. No occlusion or significant stenosis. No dissection. Right internal carotid artery: Tortuous. Minimal atherosclerosis at the bulb. Extracranial segment is patent with no occlusion or significant stenosis. No dissection. Right external carotid artery: No abnormality noted. No occlusion. Right vertebral artery: No abnormality noted. No occlusion or significant stenosis. No dissection. Left common carotid artery: No occlusion or significant stenosis. No dissection. Left internal carotid artery: Tortuous. No abnormality noted. Extracranial segment is patent with no occlusion or significant stenosis. No dissection. Left external carotid artery: No abnormality noted. No occlusion. Left vertebral artery: No abnormality noted. No occlusion or significant stenosis. No dissection. NECK: Bones/joints: Degenerative changes noted throughout the spine. No acute osseous abnormality seen. Soft tissues: No abnormality noted. Lung apices: There is septal thickening in the upper lungs. CAROTID STENOSIS REFERENCE USING NASCET CRITERIA: % ICA stenosis = (1 - narrowest ICA diameter/diameter of distal cervical ICA) x 100. Mild - <50% stenosis. Moderate - 50-69% stenosis. Severe - 70-94% stenosis. Near occlusion - 95-99% stenosis. Occluded - 100% stenosis. IMPRESSION: 1. No large vessel occlusion, aneurysm or dissection of the arteries of the neck. 2. No carotid stenosis. ACT 112: Negative or not required by law. Electronically signed by Kenia Pelayo 09-30-2024 5:44 PM Discharge Plan Visit Data Chief Complaint: Weakness Stated Complaint: WEAKNESS ED Provider: Ozzie Corona Discharge Problem: Elevated troponin, Right hand weakness, Anemia Forms Stand Alone Forms: [facility] Prescriptions Prescriptions: No Action hydroxyzine HCl 10 mg Tablet 10 - 20 mg PO DIRECTED PRN (Reason: Anxiety/Mood) multivitamin Tablet 1 tab PO DAILY lamotrigine 200 mg tablet 200 mg PO HS omeprazole 40 mg capsule,delayed release(DR/EC) 40 mg PO DAILYBB levothyroxine 75 mcg tablet 75 mcg PO DAILY paroxetine HCl 30 mg tablet 30 mg PO HS simethicone 125 mg Tablet,Chewable 125 mg PO QID PRN (Reason: .gas) oxybutynin chloride 5 mg tablet 2.5 mg PO BID hydroxyzine HCl 10 mg tablet 10 mg PO BID Rx Instructions: Give 1100 & 1700 hydroxyzine HCl 10 mg tablet 20 mg PO HS Rx Instructions: 2300 Systane Gel 0.3 % Gel 1 drp OPB Q4H PRN (Reason: Dry Eye(S)) PreserVision AREDS-2 250-90-40-1 mg Capsule 1 tab PO BID loperamide [Imodium A-D] 2 mg Capsule 2 - 4 mg PO .SEEASDIRECTED Rx Instructions: TAKE 4MG BY MOUTH AFTER 1ST LOOSE STOOL, THEN 2MG AFTER ADDITION LOOSE STOOL. MAX 16MG DAILY tramadol 50 mg tablet 50 mg PO TID PRN (Reason: LEG PAIN) naproxen sodium 220 mg Tablet 220 mg PO BID PRN (Reason: Pain) calcium carbonate [Calcium Antacid] 200 mg calcium (500 mg) Tablet,Chewable 1,000 mg PO QID PRN (Reason: Heartburn) metoprolol succinate 25 mg tablet extended release 24 hr 25 mg PO DAILY acetaminophen 500 mg Capsule 500 mg PO Q8H PRN (Reason: Pain) Rx Instructions: *MAX 3 GRAMS OF APAP IN 24 HRS calcium carbonate-vitamin D3 [Oyster Shell Calcium-Vit D3] 500 mg-5 mcg (200 unit) Tablet 1 tab PO DAILY melatonin 3 mg Tablet,Disintegrating 3 mg PO HS PRN (Reason: Insomnia) Referrals Referrals: Jeannette Lo MD [Primary Care Provider] - Discharge Problem: Anemia Qualifiers: Anemia type: unspecified type Qualified Code(s): D64.9 - Anemia, unspecified
[2024-09-30 15:59] LABS: Basophils # (auto) 0.04 K/uL (0.00-0.20); Basophils % (auto) 0.6 %; Eosinophils # (auto) 0.34 K/uL (0.00-0.50); Eosinophils % (auto) 4.7 %; Hematocrit (blood only) 36.1 % (37.0-47.0); Hemoglobin 11.7 g/dl (12.0-16.0); Immature Granulocytes # (auto) 0.02 K/uL (0.01-0.20); Immature Granulocytes % (auto) 0.3 %; Lymphocytes % (auto) 29.1 %; Mean Corpuscular Hemoglobin 30.2 pg (25.0-34.0); Mean Corpuscular Hgb Conc 32.4 g/dL (32.0-36.0); Mean Platelet Volume 8.5 fL (9.4-12.4); Monocytes # (auto) 0.69 K/uL (0.11-0.59); Monocytes % (auto) 9.6 %; Neutrophils # (auto) 4.03 K/uL (1.40-6.50); Neutrophils % (auto) 55.7 %; Platelet Count 290 K/uL (130-400); RDW Standard Deviation 44.4 fL (36.4-46.3); Red Blood Count 3.88 M/uL (4.20-5.40); White Blood Count 7.22 K/ul (4.8-10.8)
[2024-09-30 16:16] LABS: Albumin Globulin Ratio 1.2 (0.9-2); Albumin Level 3.7 gm/dl (3.4-5.0); BUN Creatinine Ratio 17.9 (10-20); Calcium 9.2 mg/dl (8.6-10.3); Creatinine Clr Calc Pharmacy 43.9 ml/min; Globulin 3.2 gm/dl (2.5-4.0); Magnesium 1.8 mg/dl (1.7-2.4); Total Protein 6.9 gm/dl (6.0-8.3)
[2024-09-30 16:27] LABS: Troponin I High Sensitivity 72.1 pg/ml (0-14)
[2024-09-30 16:33] LABS: Thyroid Stimulating Hormone 1.912 uIu/ml (0.300-4.500)
--- NOTE | 2024-09-30 16:34 | XRay Report ---
EXAM: Radiograph of the Chest 1 View INDICATION: Weakness. TECHNIQUE: Frontal view of the chest. COMPARISON: 03/02/2024 FINDINGS: Lungs and pleural spaces: Stable coarse, symmetrical chronic appearing interstitial scarring. No consolidation or pulmonary edema. No pleural effusion or pneumothorax. Heart: Stable prominent cardiac shadow. Mediastinum: Probable small sliding hiatal hernia. Bones/joints: No change internally fixed healed fracture of the left proximal humerus and old left lateral approximate ninth rib fracture. No acute osseous abnormality. Soft tissues: No abnormality noted. No radiopaque foreign body noted. Upper abdomen: No abnormality noted. IMPRESSION: Stable chronic changes. No acute disease. ACT 112: Negative or not required by law. Electronically signed by Kenia Pelayo 09-30-2024 4:34 PM
[2024-09-30] MEDS: OPTIRAY 320 125ml IV ONE (17:02)
--- NOTE | 2024-09-30 17:29 | CT Scan Report ---
EXAM: CT Angiography Neck With Intravenous Contrast INDICATION: Right upper extremity weakness. TECHNIQUE: Routine carotid CT angiography protocol was performed with intravenous contrast. NASCET criteria using the distal ICAs for comparison were used for evaluation of stenoses. Sagittal and coronal reformatted images were created and reviewed. This CT exam was performed using one or more of the following dose reduction techniques: automated exposure control, adjustment of the mA and/or kV according to patient size, and/or use of iterative reconstruction technique. MIP reconstructed images were created and reviewed. CONTRAST: 118ml of Optiray 320 was administered intravenously. COMPARISON: None. FINDINGS: Limitations: Portions of the oral cavity are obscured by dental artifact. VASCULATURE: Right common carotid artery: No abnormality noted. No occlusion or significant stenosis. No dissection. Right internal carotid artery: Tortuous. There is minimal calcific plaque at the bulb. Extracranial segment is patent with no occlusion or significant stenosis. No dissection. Right external carotid artery: No abnormality noted. No occlusion. Right vertebral artery: No abnormality noted. No occlusion or significant stenosis. No dissection. Left common carotid artery: No abnormality noted. No occlusion or significant stenosis. No dissection. Left internal carotid artery: Tortuous. Extracranial segment is patent with no occlusion or significant stenosis. No dissection. Left external carotid artery: No abnormality noted. No occlusion. Left vertebral artery: No abnormality noted. No occlusion or significant stenosis. No dissection. NECK: Bones/joints: No acute or atypical chronic changes. Soft tissues: No abnormality noted. Lymph nodes: There are few reactive mediastinal lymph nodes. No pathologically enlarged lymph nodes identified. Lung apices: There is diffuse septal thickening typical of pulmonary edema. Probable underlying chronic interstitial component. No visible pneumothorax. CAROTID STENOSIS REFERENCE USING NASCET CRITERIA: % ICA stenosis = (1 - narrowest ICA diameter/diameter of distal cervical ICA) x 100. Mild - <50% stenosis. Moderate - 50-69% stenosis. Severe - 70-94% stenosis. Near occlusion - 95-99% stenosis. Occluded - 100% stenosis. IMPRESSION: 1. No significant arterial abnormality in the neck. 2. Pulmonary edema ACT 112: Positive. There are findings on this exam that require communication between the performing entity and the patient following Patient Test Result Information Act ([place] ACT 112) guidelines. Electronically signed by Kenia Pelayo 09-30-2024 5:29 PM
[2024-09-30] MEDS: ACETAMINOPHEN 1,000 MG/100 ML VIAL IV STA (17:41)
--- NOTE | 2024-09-30 17:44 | Electrocardiogram Report ---
Test Reason : Blood Pressure : */* mmHG Vent. Rate : 71 BPM Atrial Rate : 71 BPM P-R Int : 142 ms QRS Dur : 72 ms QT Int : 410 ms P-R-T Axes : 53 50 50 degrees QTcB Int : 445 ms Normal sinus rhythm Left ventricular hypertrophy Rightward axis prominent T waves Borderline ECG When compared with ECG of 01-Aug-2024 15:36, No significant change was found Confirmed by Bruna Ann (Sun) on 09/30/2024 5:44:21 PM Referred By: Confirmed By: Bruna Ann
[2024-09-30] MEDS: cefTRIAXone SODIUM 2,000 MG/50 ML BAG IV STA (17:45)
--- NOTE | 2024-09-30 17:45 | CT Scan Report ---
EXAM: CT Angiography Neck With Intravenous Contrast INDICATION: History Reason For Study TECHNIQUE: Routine carotid CT angiography protocol was performed with intravenous contrast. NASCET criteria using the distal ICAs for comparison were used for evaluation of stenoses. Sagittal and coronal reformatted images were created and reviewed. This CT exam was performed using one or more of the following dose reduction techniques: automated exposure control, adjustment of the mA and/or kV according to patient size, and/or use of iterative reconstruction technique. MIP reconstructed images were created and reviewed. CONTRAST: 118ml of Optiray 320 was administered intravenously. COMPARISON: None. FINDINGS: VASCULATURE: Right common carotid artery: No abnormality noted. No occlusion or significant stenosis. No dissection. Right internal carotid artery: Tortuous. Minimal atherosclerosis at the bulb. Extracranial segment is patent with no occlusion or significant stenosis. No dissection. Right external carotid artery: No abnormality noted. No occlusion. Right vertebral artery: No abnormality noted. No occlusion or significant stenosis. No dissection. Left common carotid artery: No occlusion or significant stenosis. No dissection. Left internal carotid artery: Tortuous. No abnormality noted. Extracranial segment is patent with no occlusion or significant stenosis. No dissection. Left external carotid artery: No abnormality noted. No occlusion. Left vertebral artery: No abnormality noted. No occlusion or significant stenosis. No dissection. NECK: Bones/joints: Degenerative changes noted throughout the spine. No acute osseous abnormality seen. Soft tissues: No abnormality noted. Lung apices: There is septal thickening in the upper lungs. CAROTID STENOSIS REFERENCE USING NASCET CRITERIA: % ICA stenosis = (1 - narrowest ICA diameter/diameter of distal cervical ICA) x 100. Mild - <50% stenosis. Moderate - 50-69% stenosis. Severe - 70-94% stenosis. Near occlusion - 95-99% stenosis. Occluded - 100% stenosis. IMPRESSION: 1. No large vessel occlusion, aneurysm or dissection of the arteries of the neck. 2. No carotid stenosis. ACT 112: Negative or not required by law. Electronically signed by Kenia Pelayo 09-30-2024 5:44 PM
[2024-09-30 18:02] LABS: Appearance Urine Clear (Clear); Bilirubin Urine Negative (Negative); Blood Urine Negative (Negative); Color Urine Yellow; Glucose Urine UA Negative (Negative); Ketones Urine Trace (Negative); Leukocyte Esterase Urine Negative (Negative); Nitrite Urine Negative (Negative); Protein Urine Negative (Negative); Specific Gravity Urine 1.019 (1.000-1.030); Urobilinogen Urine Negative (Negative); pH Urine 7.5 (4.5-7.5)
[2024-09-30] MEDS: methylPREDNISolone 125 MG/2 ML VIAL IV STA (20:22)
--- NOTE | 2024-09-30 21:28 | CT Scan Report ---
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 Sagittal and coronal reformations are supplied. FINDINGS: Dental amalgam appropriate parenchymal volume is noted. Age-appropriate parenchymal volume. West-white differentiation is preserved. No edema or midline shift. Scattered periventricular lucency present favoring small vessel occlusive disease. No intra-axial or extra-axial hemorrhage. Ventricles are normal in size and configuration. Brainstem and cerebellum have a normal appearance. Calvarium unremarkable. Paranasal sinuses and mastoid air cells are well-pneumatized. Globes are intact. No retrobulbar abnormality. IMPRESSION: No CT evidence of an acute intracranial abnormality. Electronically signed by Bárbara Oneill 09-30-2024 5:27 PM
--- NOTE | 2024-09-30 21:28 | CT Scan Report ---
EXAM: CTA head with CLINICAL HISTORY: Right wrist weakness TECHNIQUE: Contiguous CTA axial images were obtained through the head after the administration of intravenous contrast. Sagittal and coronal reformations are supplied. PRIORS: None FINDINGS: The vertebral arteries form the basilar artery at the skull base. [place] of [place] is patent. No thrombus or hemodynamically significant stenosis. No aneurysmal dilatation or frazier aneurysm. No enhancing mass in the brain. IMPRESSION: No CTA evidence of an acute vascular abnormality. Electronically signed by Bárbara Oneill 09-30-2024 5:27 PM
--- NOTE | 2024-09-30 22:10 | History & Physical Report ---
Date of Service September 30, 2024 Assessment & Plan (1) Decompensated heart failure: Plan: History diastolic dysfunction History severe Troponin elevation secondary above PAF, patient NSR, not on anticoagulation Recurrent LE cellulitis in the setting of CHF, no sepsis for now Right knee effusion RUE weakness, abnormal cervical MRI, possible cervical myelopathy hypothyroidism, euthyroid as of today's TSH NAFLD, patient follows with [facility] pediatric allergist mood disorder, at baseline PCU Diuretic Rx Strict I/Os, daily weights, CHF education Update TTE, Cardio consult re: CHF (Patient known to [facility] service as per outpatient records.) Doxycycline for LE cellulitis Orthopedics consult Re: Right knee effusion Orthopedic spine consult Re: Neck pain with RUE weakness, possible cervical myelopathy DVT prophylaxis. Lovenox subcu Full code Text document was generated using [employer] voice recognition software. It may contain grammatical or spelling errors. Kindly contact undersigned for clarification of any documentation item in question. History of Present Illness Chief Complaint: Right wrist weakness Primary Care Provider: Jeannette Lo MD History obtained from patient and records. Medical history significant for chronic diastolic heart failure (EF 65 to 69%, TTE 2023), PAF, severe , hypothyroidism, NAFLD, chronic tremors, chronic LE venous stasis as per records, mood disorder. Last [facility] confinement December, for bilateral LE cellulitis Patient discharged on Keflex course. Patient confined at [facility] last February 2024 following [facility] ER transfer for traumatic intertrochanteric right femoral fracture status post intramedullary anai placement. Patient contracted COVID-19 illness post procedure. Subsequently discharged to rehab before transitioning home. Last week, patient noted recurrent bilateral LE swelling and redness without fever or chills. Achy right knee and right upper leg pain. No fever, no chills. Intermittent substernal chest pain/SOB at home. No unusual cough symptoms. Few days ago, patient noted right hand weakness with some right neck pain. No recollection of trauma. No incontinence symptoms or leg weakness. Ceftriaxone and Solu-Medrol administered at the ER. 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 Allergies Allergy/AdvReac Type Severity Reaction Status Date / Time No Known Allergies Allergy Verified 09/30/24 18:34 Home Medications Medication Instructions Recorded Confirmed Type artificial tears(hypromellose) 0.3 1 drp OPB Q4H PRN Dry Eye(S) 01/12/24 09/30/24 History % eye gel (Systane Gel) hydroxyzine HCl 10 mg tablet 10 mg PO BID 01/12/24 09/30/24 History hydroxyzine HCl 10 mg tablet 20 mg PO HS 01/12/24 09/30/24 History lamotrigine 200 mg tablet 200 mg PO HS 01/12/24 09/30/24 History levothyroxine 75 mcg tablet 75 mcg PO DAILY 01/12/24 09/30/24 History multivitamin 1 tab PO DAILY 01/12/24 09/30/24 History omeprazole 40 mg capsule,delayed 40 mg PO DAILYBB 01/12/24 09/30/24 History release oxybutynin chloride 5 mg tablet 2.5 mg PO BID 01/12/24 09/30/24 History paroxetine HCl 30 mg tablet 30 mg PO HS 01/12/24 09/30/24 History simethicone 125 mg chewable tablet 125 mg PO QID PRN .gas 01/12/24 09/30/24 History vit C 250 mg-vit E 90 mg-zinc 40 1 tab PO BID 01/12/24 09/30/24 History mg-copper 1 [id number] capsule (PreserVision AREDS-2) hydroxyzine HCl 10 mg tablet 10 - 20 mg PO DIRECTED PRN 01/13/24 09/30/24 History Anxiety/Mood acetaminophen 500 mg capsule 500 mg PO Q8H PRN Pain 09/30/24 09/30/24 History calcium 500 mg (as 1 tab PO DAILY 09/30/24 09/30/24 History carbonate)-vitamin D3 5 mcg (200 unit) tablet (Oyster Shell Calcium-Vitamin D3) calcium carbonate (Calcium Antacid) 1,000 mg PO QID PRN Heartburn 09/30/24 09/30/24 History loperamide 2 mg capsule (Imodium 2 - 4 mg PO .SEEASDIRECTED 09/30/24 09/30/24 History A-D) melatonin 3 mg disintegrating 3 mg PO HS PRN Insomnia 09/30/24 09/30/24 History tablet metoprolol succinate 25 mg 25 mg PO DAILY 09/30/24 09/30/24 History tablet,extended release 24 hr naproxen sodium 220 mg tablet 220 mg PO BID PRN Pain 09/30/24 09/30/24 History tramadol 50 mg tablet 50 mg PO TID PRN LEG PAIN 09/30/24 09/30/24 History Past Med/Surg History Problem List Decompensated heart failure Anemia (Acute) Right hand weakness (Acute) Elevated troponin (Acute) Cholelithiasis Hypokalemia Fever (Acute) Rigors (Acute) Cellulitis (Acute) Elevated LFTs Dyspepsia Pain of right heel Transaminitis (Acute) CRP elevated (Acute) Elevated erythrocyte sedimentation rate (Acute) Cellulitis of left lower leg (Acute) Cellulitis of right lower leg (Acute) Bilateral lower leg cellulitis (Acute) Leukocytosis (Acute) SIRS (systemic inflammatory response syndrome) (Acute) Right knee pain Aortic stenosis Hypoxia JOSEFINA (acute kidney injury) Depression with anxiety Swelling of both lower extremities Cellulitis (Acute) Sensory polyneuropathy Falling Gait disturbance (Acute) Essential tremor Traumatic ulceration of tongue Thyroid disease COVID-19 (Acute) Fracture, thoracic vertebra (Acute) COVID-19 virus infection Paroxysmal atrial fibrillation with RVR (Acute) Heart murmur Patient will be scheduled for an echocardiogram she is no recollection of being told that she had a heart murmur Postherpetic neuralgia (Chronic) Rib fracture (Acute) Weakness (Acute) Medical History Chronic renal insufficiency Diastolic heart failure Sepsis Stasis dermatitis Cellulitis Elevated liver enzymes Degenerative arthritis Cellulitis Anxiety Hypothyroidism Surgical History S/P cataract surgery Family History Father , age 76 of metastatic prostate cancer Cancer Prostate cancer Heart disease Mother , age 93 Rheumatoid arthritis Social History Smoking Status: Never smoker Second Hand Exposure: No; Do You Dip or Chew Tobacco: No; Hx Alcohol Use: No Hx Substance Use: No Preferred Language: Czech Communication Ability: Effective Manager Graphic Required: No Beliefs That Will Affect Care: None marital status: Single Current Living Situation: Personal Care Facility Current Living Situation Comment: [facility] current occupational status: retired 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 57 How many Children do You have: 0 Other Information That Helps Us Care for You: No Feels Safe at Home: Yes Safety Concerns: Feels Safe At This Time Assistive Devices: Glasses, Walker and Wheelchair Review of Systems Review of Systems: As per HPI, all other systems reviewed and negative Physical Exam Physical Exam: GENERAL: Comfortable, pleasant, no respiratory distress SKIN: Normal color, warm HEENT: [place] palpebral conjunctivae, no ptosis, moist buccal mucosa NECK : Supple, minimal cervical tenderness right CHEST : CTA, no tenderness HEART : RRR, systolic murmur ABDOMEN: Some distention, nontender EXTREMITIES : Right hip tenderness, right knee tenderness, bilateral LE erythema with some tenderness NEUROLOGIC : Coherent, no facial asymmetry, MMTs BUE/BLE 4/5 with subtle weakness 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, gait and stance not assessed Results & Data Results & Data Vital Signs (Past 12 Hours) Vital Signs Temp Pulse Pulse Resp BP BP Pulse Ox 09/30/24 21:39 91 H 21 09/30/24 21:07 76 18 157/75 H 09/30/24 20:30 74 19 09/30/24 20:27 79 23 09/30/24 20:00 79 19 95 09/30/24 19:45 73 17 93 09/30/24 19:38 74 09/30/24 19:05 141/78 H 09/30/24 18:54 74 18 96 09/30/24 18:42 72 93 09/30/24 18:36 79 20 137/62 94 09/30/24 18:21 81 14 95 09/30/24 18:15 79 21 99 09/30/24 17:45 78 24 100 09/30/24 17:30 76 24 148/62 H 100 09/30/24 16:45 78 23 09/30/24 16:30 75 09/30/24 15:52 70 09/30/24 15:51 73 14 98 09/30/24 15:42 74 18 100 09/30/24 15:30 70 21 09/30/24 15:24 37 C 70 22 152/74 H 100 O2 Del Method 09/30/24 21:39 09/30/24 21:07 09/30/24 20:30 09/30/24 20:27 09/30/24 20:00 Room Air 09/30/24 19:45 Room Air 09/30/24 19:38 09/30/24 19:05 09/30/24 18:54 Room Air 09/30/24 18:42 Room Air 09/30/24 18:36 Room Air 09/30/24 18:21 Room Air 09/30/24 18:15 Room Air 09/30/24 17:45 Room Air 09/30/24 17:30 Room Air 09/30/24 16:45 09/30/24 16:30 09/30/24 15:52 09/30/24 15:51 Room Air 09/30/24 15:42 Room Air 09/30/24 15:30 09/30/24 15:24 Room Air Laboratory Results Laboratory Results WBC 7.22 K/ul (4.8-10.8) 09/30/24 15:30 RBC 3.88 M/uL (4.20-5.40) L 09/30/24 15:30 Hgb 11.7 g/dl (12.0-16.0) L 09/30/24 15:30 Hct 36.1 % (37.0-47.0) L 09/30/24 15:30 MCV 93.0 fL (80.0-100.0) 09/30/24 15:30 MCH 30.2 pg (25.0-34.0) 09/30/24 15:30 MCHC 32.4 g/dL (32.0-36.0) 09/30/24 15:30 RDW Std Deviation 44.4 fL (36.4-46.3) 09/30/24 15:30 RDW Coeff of Benita 13.0 % (11.5-14.5) 09/30/24 15:30 Plt Count 290 K/uL (130-400) 09/30/24 15:30 MPV 8.5 fL (9.4-12.4) L 09/30/24 15:30 Immature Gran % (Auto) 0.3 % 09/30/24 15:30 Neut % (Auto) 55.7 % 09/30/24 15:30 Lymph % (Auto) 29.1 % 09/30/24 15:30 [place] % (Auto) 9.6 % 09/30/24 15:30 Eos % (Auto) 4.7 % 09/30/24 15:30 Baso % (Auto) 0.6 % 09/30/24 15:30 Neut # (Auto) 4.03 K/uL (1.40-6.50) 09/30/24 15:30 Lymph # (Auto) 2.10 K/uL (1.20-3.40) 09/30/24 15:30 [place] # (Auto) 0.69 K/uL (0.11-0.59) H 09/30/24 15:30 Eos # (Auto) 0.34 K/uL (0.00-0.50) 09/30/24 15:30 Baso # (Auto) 0.04 K/uL (0.00-0.20) 09/30/24 15:30 Immature Gran # (Auto) 0.02 K/uL (0.01-0.20) 09/30/24 15:30 Sodium 137 mmol/L (136-145) 09/30/24 15:30 Potassium 4.0 mmol/L (3.5-5.1) 09/30/24 15:30 Chloride 102 mmol/L (98-107) 09/30/24 15:30 Carbon Dioxide 29 mmol/L (21-32) 09/30/24 15:30 Anion Gap 6 (3-11) 09/30/24 15:30 BUN 15 mg/dl (6-23) 09/30/24 15:30 Creatinine 0.84 mg/dl (0.6-1.2) 09/30/24 15:30 Est Cr Clr Drug Dosing 43.9 ml/min 09/30/24 15:30 eGFR 69.34 09/30/24 15:30 BUN/Creatinine Ratio 17.9 (10-20) 09/30/24 15:30 Glucose 85 mg/dl (70-99(Fasting)) 09/30/24 15:30 Calcium 9.2 mg/dl (8.6-10.3) 09/30/24 15:30 Magnesium 1.8 mg/dl (1.7-2.4) 09/30/24 15:30 Total Bilirubin 1.0 mg/dl (0.2-1.0) 09/30/24 15:30 AST 29 U/L (13-39) 09/30/24 15:30 ALT 31 U/L (7-52) 09/30/24 15:30 Alkaline Phosphatase 240 U/L (34-104) H 09/30/24 15:30 Troponin I High Sens 76.1 pg/ml (0-14) H* 09/30/24 17:36 Total Protein 6.9 gm/dl (6.0-8.3) 09/30/24 15:30 Albumin 3.7 gm/dl (3.4-5.0) 09/30/24 15:30 Globulin 3.2 gm/dl (2.5-4.0) 09/30/24 15:30 Albumin/Globulin Ratio 1.2 (0.9-2) 09/30/24 15:30 TSH 1.912 uIu/ml (0.300-4.500) 09/30/24 15:30 Urine Color Yellow 09/30/24 17:50 Urine Appearance Clear (Clear) 09/30/24 17:50 Urine pH 7.5 (4.5-7.5) 09/30/24 17:50 Ur Specific [place] 1.019 (1.000-1.030) 09/30/24 17:50 Urine Protein Negative (Negative) 09/30/24 17:50 Urine Glucose (UA) Negative (Negative) 09/30/24 17:50 Urine Ketones Trace (Negative) H 09/30/24 17:50 Urine Blood Negative (Negative) 09/30/24 17:50 Urine Nitrite Negative (Negative) 09/30/24 17:50 Urine Bilirubin Negative (Negative) 09/30/24 17:50 Urine Urobilinogen Negative (Negative) 09/30/24 17:50 Ur Leukocyte Esterase Negative (Negative) 09/30/24 17:50 Impressions Chest X-Ray 09/30/24 00:00 EXAM: Radiograph of the Chest 1 View INDICATION: Weakness. TECHNIQUE: Frontal view of the chest. COMPARISON: 03/02/2024 FINDINGS: Lungs and pleural spaces: Stable coarse, symmetrical chronic appearing interstitial scarring. No consolidation or pulmonary edema. No pleural effusion or pneumothorax. Heart: Stable prominent cardiac shadow. Mediastinum: Probable small sliding hiatal hernia. Bones/joints: No change internally fixed healed fracture of the left proximal humerus and old left lateral approximate ninth rib fracture. No acute osseous abnormality. Soft tissues: No abnormality noted. No radiopaque foreign body noted. Upper abdomen: No abnormality noted. IMPRESSION: Stable chronic changes. No acute disease. ACT 112: Negative or not required by law. Electronically signed by Kenia Pelayo 09-30-2024 4:[address] 09/30/24 15:44 EXAM: CT Angiography Neck With Intravenous Contrast INDICATION: Right upper extremity weakness. TECHNIQUE: Routine carotid CT angiography protocol was performed with intravenous contrast. NASCET criteria using the distal ICAs for comparison were used for evaluation of stenoses. Sagittal and coronal reformatted images were created and reviewed. This CT exam was performed using one or more of the following dose reduction techniques: automated exposure control, adjustment of the mA and/or kV according to patient size, and/or use of iterative reconstruction technique. MIP reconstructed images were created and reviewed. CONTRAST: 118ml of Optiray 320 was administered intravenously. COMPARISON: None. FINDINGS: Limitations: Portions of the oral cavity are obscured by dental artifact. VASCULATURE: Right common carotid artery: No abnormality noted. No occlusion or significant stenosis. No dissection. Right internal carotid artery: Tortuous. There is minimal calcific plaque at the bulb. Extracranial segment is patent with no occlusion or significant stenosis. No dissection. Right external carotid artery: No abnormality noted. No occlusion. Right vertebral artery: No abnormality noted. No occlusion or significant stenosis. No dissection. Left common carotid artery: No abnormality noted. No occlusion or significant stenosis. No dissection. Left internal carotid artery: Tortuous. Extracranial segment is patent with no occlusion or significant stenosis. No dissection. Left external carotid artery: No abnormality noted. No occlusion. Left vertebral artery: No abnormality noted. No occlusion or significant stenosis. No dissection. NECK: Bones/joints: No acute or atypical chronic changes. Soft tissues: No abnormality noted. Lymph nodes: There are few reactive mediastinal lymph nodes. No pathologically enlarged lymph nodes identified. Lung apices: There is diffuse septal thickening typical of pulmonary edema. Probable underlying chronic interstitial component. No visible pneumothorax. CAROTID STENOSIS REFERENCE USING NASCET CRITERIA: % ICA stenosis = (1 - narrowest ICA diameter/diameter of distal cervical ICA) x 100. Mild - <50% stenosis. Moderate - 50-69% stenosis. Severe - 70-94% stenosis. Near occlusion - 95-99% stenosis. Occluded - 100% stenosis. IMPRESSION: 1. No significant arterial abnormality in the neck. 2. Pulmonary edema ACT 112: Positive. There are findings on this exam that require communication between the performing entity and the patient following Patient Test Result Information Act ([place] ACT 112) guidelines. 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 Sagittal and coronal reformations are supplied. FINDINGS: Dental amalgam appropriate parenchymal volume is noted. Age-appropriate parenchymal volume. [place] differentiation is preserved. No edema or midline shift. Scattered periventricular lucency present favoring small vessel occlusive disease. No intra-axial or extra-axial hemorrhage. Ventricles are normal in size and configuration. Brainstem and cerebellum have a normal appearance. Calvarium unremarkable. Paranasal sinuses and mastoid air cells are well-pneumatized. Globes are intact. No retrobulbar abnormality. IMPRESSION: No CT evidence of an acute intracranial abnormality. Electronically signed by Bárbara Oneill 09-30-2024 5:27 PM Head CTA 09/30/24 15:44 EXAM: CTA head with CLINICAL HISTORY: Right wrist weakness TECHNIQUE: Contiguous CTA axial images were obtained through the head after the administration of intravenous contrast. Sagittal and coronal reformations are supplied. PRIORS: None FINDINGS: The vertebral arteries form the basilar artery at the skull base. [place] is patent. No thrombus or hemodynamically significant stenosis. No aneurysmal dilatation or frazier aneurysm. No enhancing mass in the brain. IMPRESSION: No CTA evidence of an acute vascular abnormality. Electronically signed by Bárbara Oneill 09-30-2024 5:27 PM Neck CTA 09/30/24 15:44 EXAM: CT Angiography Neck With Intravenous Contrast INDICATION: History Reason For Study TECHNIQUE: Routine carotid CT angiography protocol was performed with intravenous contrast. NASCET criteria using the distal ICAs for comparison were used for evaluation of stenoses. Sagittal and coronal reformatted images were created and reviewed. This CT exam was performed using one or more of the following dose reduction techniques: automated exposure control, adjustment of the mA and/or kV according to patient size, and/or use of iterative reconstruction technique. MIP reconstructed images were created and reviewed. CONTRAST: 118ml of Optiray 320 was administered intravenously. COMPARISON: None. FINDINGS: VASCULATURE: Right common carotid artery: No abnormality noted. No occlusion or significant stenosis. No dissection. Right internal carotid artery: Tortuous. Minimal atherosclerosis at the bulb. Extracranial segment is patent with no occlusion or significant stenosis. No dissection. Right external carotid artery: No abnormality noted. No occlusion. Right vertebral artery: No abnormality noted. No occlusion or significant stenosis. No dissection. Left common carotid artery: No occlusion or significant stenosis. No dissection. Left internal carotid artery: Tortuous. No abnormality noted. Extracranial segment is patent with no occlusion or significant stenosis. No dissection. Left external carotid artery: No abnormality noted. No occlusion. Left vertebral artery: No abnormality noted. No occlusion or significant stenosis. No dissection. NECK: Bones/joints: Degenerative changes noted throughout the spine. No acute osseous abnormality seen. Soft tissues: No abnormality noted. Lung apices: There is septal thickening in the upper lungs. CAROTID STENOSIS REFERENCE USING NASCET CRITERIA: % ICA stenosis = (1 - narrowest ICA diameter/diameter of distal cervical ICA) x 100. Mild - <50% stenosis. Moderate - 50-69% stenosis. Severe - 70-94% stenosis. Near occlusion - 95-99% stenosis. Occluded - 100% stenosis. IMPRESSION: 1. No large vessel occlusion, aneurysm or dissection of the arteries of the neck. 2. No carotid stenosis. ACT 112: Negative or not required by law. Electronically signed by Kenia Pelayo 09-30-2024 5:44 PM CTA chest: 1. No signs of acute pulmonary embolism noted 2. Signs of pulmonary hypertension noted. 3. Mild cardiomeglay is seen . 4. Subtle groundglass changes in bilateral lungs with thickening of interlobular septae, the possibility of early/developing pulmonary edema cannot be entirely excluded. 5. Minimal bilateral pleural effusion/pleural thickening. 6. Moderate spondylosis of the thoracic spine noted . CT abdomen pelvis: Partially contracted with probable sludge in small noncalcified gallstones, not well characterized. Correlation right upper quadrant ultrasound is recommended clinically appropriate. No bowel obstruction or ileus. Suspected duodenal bulb wall thickening, possibly duodenitis. Interval right hip and femur internal fixation. Otherwise no change. CT right femur: Interval comminuted intertrochanteric fracture of the right hip with incomplete healing of the presence of a femoral head and neck compression screw and proximal femoral intramedullary anai. No acute fracture. No dislocation. Degenerative changes of the right knee including increased lateral joint space degenerative changes and a suprapatellar joint effusion. LE venous Dopplers: There is no sonographic evidence of deep vein thrombosis identified in the bilateral lower extremities. No DVT was seen on the prior ultrasounds. Prominent lymph nodes are seen in bilateral groin region, largest on the right measuring 1.7 x 0.8 x 1.4 cm and largest on the left measuring 2.1 x 0.9 x 1.6 cm. Cervical MRI: 1. Moderate spondylosis of the cervical spine with mutlilevel degenerative disc lesions as described above more pronounced in C4-5, C5-6 and C6-C7 vertebral level causing moderate spinal canal stenosis along with neural foraminal narrowing resulting in compression over existing nerve roots, as detailed above 2. No gross interval change noted in comparison to previous CT scan Diagnostic Findings EKG as per my interpretation : Rate 70, NSR, normal axis, LVH, no ischemia
[2024-09-30] MEDS ORDERED: PROMETHAZINE 6.25 MG/50.25 ML BAG IV PRN (22:16)
[2024-09-30] MEDS ORDERED: ARTIFICIAL TEARS OP PRN (22:30)
[2024-09-30] MEDS ORDERED: MELATONIN 3 MG TAB PO PRN (22:31)
[2024-09-30] MEDS: DOXYCYCLINE HYCLATE 100 MG in DEXTROSE 5% MINI-B 100 ML IV STA (23:24)
[2024-09-30 23:27] LABS: D Dimer 1860 ug/L FEU (0-500)
[2024-09-30] MEDS: lamoTRIgine 100 MG TAB PO SCH (23:38)
[2024-09-30] MEDS: PARoxetine HCL 10 MG TAB PO SCH (23:38)
[2024-09-30] MEDS: hydrOXYzine HCl 10 MG TAB PO SCH (23:39)
[2024-10-01] MEDS: FUROSEMIDE INJ 20 MG/2 ML VIAL IV ONE (00:25)
--- NOTE | 2024-10-01 01:09 | XRay Report ---
Exam(s): XR KNEE, 1-2 views EXAM: XR Right Knee, 2 Views CLINICAL HISTORY: pain. TECHNIQUE: Frontal and lateral views of the right knee. COMPARISON: 01/12/2024. FINDINGS: Bones/joints: Increased lateral joint space narrowing with sclerosis and probable subchondral cysts with marginal osteophytes. No acute fracture. No dislocation. Soft tissues: Small suprapatellar joint effusion. Vascular calcifications. IMPRESSION: Increased lateral joint space degenerative changes. Suprapatellar joint effusion. Electronically signed by: Dion Banda M.D. 10/01/24 01:08 AM
--- NOTE | 2024-10-01 01:36 | CT Scan Report ---
Exam(s): CT ABDOMEN + PELVIS Without Contrast EXAM: CT Abdomen and Pelvis Without Intravenous Contrast CLINICAL HISTORY: abd pain. TECHNIQUE: Axial computed tomography images of the abdomen and pelvis without intravenous contrast. CTDI is 11.5 mGy and DLP is 560.21 mGy-cm. Automated exposure control was utilized for the study. A dose lowering technique was utilized adhering to the principles of ALARA. COMPARISON: 01/12/2024. FINDINGS: Lung bases: Mild bilateral dependent atelectasis. ABDOMEN: Liver: Unremarkable. Gallbladder and bile ducts: Partially contracted with probable sludge in small noncalcified gallstones, not well characterized. No pericholecystic fluid. No ductal dilation. Pancreas: Fatty replaced. No ductal dilation. Spleen: Unremarkable. No splenomegaly. Adrenals: Unremarkable. No mass. Kidneys and ureters: No obstructive uropathy. No obstructing renal or ureteral calculi. No hydronephrosis or hydroureter. Stomach and bowel: Fat-containing hiatal hernia. Suspected duodenal bulb wall thickening. No obstruction or ileus. Moderate stool throughout the colon. No evidence for diverticulitis. PELVIS: Appendix: No findings to suggest acute appendicitis. Bladder: Partially contracted. No stones. Reproductive: Atrophic uterus. Ovaries not well characterized. ABDOMEN and PELVIS: Intraperitoneal space: No free air. No free fluid. Bones/joints: No acute fracture. Metal artifact from right femoral head and neck compression screw partially visualized intramedullary anai. Overlying posterior and lateral right hip subcutaneous postoperative scarring. Degenerative changes of the spine. Soft tissues: Unremarkable. Vasculature: Atherosclerotic vascular calcifications. No abdominal aortic aneurysm. Lymph nodes: Unremarkable. No enlarged lymph nodes. IMPRESSION: Partially contracted with probable sludge in small noncalcified gallstones, not well characterized. Correlation right upper quadrant ultrasound is recommended clinically appropriate. No bowel obstruction or ileus. Suspected duodenal bulb wall thickening, possibly duodenitis. Interval right hip and femur internal fixation. Otherwise no change. Electronically signed by: Dion Banda M.D. 10/01/24 01:35 AM
--- NOTE | 2024-10-01 01:43 | CT Scan Report ---
Exam(s): CT EXTREMITY RIGHT LOWER Without Contrast EXAM: CT Right Lower Extremity Without Intravenous Contrast CLINICAL HISTORY: pain. TECHNIQUE: Axial computed tomography images of the right lower extremity without intravenous contrast. CTDI is 11.5 mGy and DLP is 560.21 mGy-cm. Automated exposure control was utilized for the study. A dose lowering technique was utilized adhering to the principles of ALARA. COMPARISON: CT abdomen pelvis 01/12/2024, x-ray right knee 01/12/2024. FINDINGS: Bones/joints: Interval placement of a proximal right femoral head and neck compression screw and a proximal femoral intramedullary anai extending to the junction of the proximal mid one third of the femoral diaphysis. Lateral aspect of the compression screw is 1.6 cm beyond the greater trochanter cortical surface. Additional screw transfixes the superior aspect the femoral head. Transcortical screw through the distal aspect of the intramedullary anai. Comminuted incompletely healed right proximal femoral intertrochanteric. The right femoral head remains in alignment with the acetabulum. Visualized bony pelvis is intact without fracture. No distal femoral fracture. Degenerative changes of the right knee with lateral joint space narrowing, sclerosis, marginal osteophytes and a 9 mm subchondral cyst at the lateral tibial plateau are present. No acute fracture. No dislocation. Soft tissues: Probable scarring at the lateral aspect of the right hip related to underlying internal fixation hardware. Suprapatellar joint effusion. Vascular calcifications. IMPRESSION: Interval comminuted intertrochanteric fracture of the right hip with incomplete healing of the presence of a femoral head and neck compression screw and proximal femoral intramedullary anai. No acute fracture. No dislocation. Degenerative changes of the right knee including increased lateral joint space degenerative changes and a suprapatellar joint effusion. Electronically signed by: Dion Banda M.D. 10/01/24 01:41 AM
--- NOTE | 2024-10-01 02:42 | Ultrasound Report ---
EXAM: US venous doppler LE BI CLINICAL HISTORY: HX: PREV LLE 11/12/23, RLE 06/29/23. BILAT KNEE PAIN, BILAT CALF REDNESS. TECH NOTES: NO OBVIOUS DVT B/L LE. PROMINENT LYMPH NODES BILAT GROIN. LARGEST ON RT 1.7 X 0.8 X 1.4 cm. LARGEST ON LT: 2.1 X 0.9 X 1.6 cm SENT TO [facility] TECHNIQUE: Doppler ultrasound of bilateral lower extremity veins was performed. COMPARISON: 11/12/2023 , 06/29/2023 FINDINGS: There is no sonographic evidence of deep vein thrombosis identified in the bilateral lower extremities. The common femoral, superficial femoral, and popliteal veins are patent and normally compressible. The visualized calf veins are patent. Prominent lymph nodes are seen in bilateral groin region, largest on the right measuring 1.7 x 0.8 x 1.4 cm and largest on the left measuring 2.1 x 0.9 x 1.6 cm. IMPRESSION: There is no sonographic evidence of deep vein thrombosis identified in the bilateral lower extremities. No DVT was seen on the prior ultrasounds. Prominent lymph nodes are seen in bilateral groin region, largest on the right measuring 1.7 x 0.8 x 1.4 cm and largest on the left measuring 2.1 x 0.9 x 1.6 cm. Disclaimer: DVT could be missed early in the disease when clot burden is minimal. For patients with moderate and high pretest probability of DVT and negative ultrasound, the [place] [employer] clinical guidelines recommend testing with a D-dimer assay or repeat ultrasound in 5-7 days. If symptoms worsen, the Society of radiologists in ultrasound recommends repeating ultrasound even earlier. Electronically signed by Radha Eric 10-01-2024 02:41 AM
[2024-10-01 05:16] LABS: Hematocrit (blood only) 38.2 % (37.0-47.0); Hemoglobin 12.4 g/dl (12.0-16.0); Mean Corpuscular Hemoglobin 29.7 pg (25.0-34.0); Mean Corpuscular Hgb Conc 32.5 g/dL (32.0-36.0); Mean Corpuscular Volume 91.6 fL (80.0-100.0); Mean Platelet Volume 8.8 fL (9.4-12.4); Platelet Count 324 K/uL (130-400); RDW Coefficient of Variation 12.9 % (11.5-14.5); RDW Standard Deviation 42.7 fL (36.4-46.3); Red Blood Count 4.17 M/uL (4.20-5.40); White Blood Count 7.25 K/ul (4.8-10.8)
[2024-10-01] MEDS: OPTIRAY 320 125ml IV ONE (05:27)
[2024-10-01 05:34] LABS: BUN Creatinine Ratio 20.5 (10-20); Basophils # (auto) 0.01 K/uL (0.00-0.20); Basophils % (auto) 0.1 %; Calcium 9.4 mg/dl (8.6-10.3); Creatinine Clr Calc Pharmacy 45.5 ml/min; Immature Granulocytes # (auto) 0.02 K/uL (0.01-0.20); Immature Granulocytes % (auto) 0.3 %; Lymphocytes # (auto) 0.35 K/uL (1.20-3.40); Lymphocytes % (auto) 4.8 %; Monocytes # (auto) 0.13 K/uL (0.11-0.59); Monocytes % (auto) 1.8 %; Neutrophils # (auto) 6.74 K/uL (1.40-6.50); Potassium 3.7 mmol/L (3.5-5.1); Stomatocytes 1+
--- NOTE | 2024-10-01 05:34 | Magnetic Resonance Report ---
EXAM: MR cervical spine wo con CLINICAL HISTORY: patient reports via ems for right wrist weakness that started 3 days ago. sob. shakiness. weakness right wrist. no known injury. CT cervical spine on 09/30/24 Used some propeller scans. Best scans possible at this time. TECHNIQUE: MRI of the cervical spine was performed. Sequences obtained include sagittal T1-weighted, T2-weighted, STIR (Short Tau Inversion Recovery), and axial T2-weighted sequences. Additional sequences such as gradient echo (GRE) or post-contrast T1-weighted images may have been included based on clinical indication. COMPARISON: Comparison is made with prior imaging studies dated 09/30/2024 . FINDINGS: Vertebral Alignment: There is significant curvature deformity noted resulting in suboptimal evaluation of disc disease. Grade 1 anterolisthesis of C3 over C4 vertebra noted Multilevel anterior marginal osteophytes are also seen Vertebral Bodies and Intervertebral Discs: The height of vertebral bodies appears within normal limits. Multilevel reduced intervening disc space noted Multilevel disc dehydration seen [id number] analysis: C2-C3: There is no significant disc pathology. Normal morphology of the ligamentum flava. No arthropathy of the uncovertebral and zygapophyseal joints. No significant spinal canal stenosis C3-C4: There is a 2.9 mm posterior disc protrusion indnets the ventrla theca with moderate bilateral exit neural foraminal compromise , Normal morphology of the ligamentum flava. No arthropathy of the uncovertebral and zygapophyseal joints. No significant spinal canal stenosis C4-C5:There is 3.6 mm disc osteophyte complex with with right preponderance causing mild to moderate spinal canal stenosis along with bilateral neural foraminal narrowing resulting in compression over existing nerve roots C5-C6: Disc osteophyte complex measuring 4.1 mm causing moderate spinal canal stenosis along with significant bilateral neuroforaminal narrowing resulting in compression over existing nerve roots C6-C7: There is disc osteophyte complex of 3.6 mm causing moderate spinal canal stenosis along with bilateral neuroforaminal narrowing resulting in compression over existing nerve root C7-T1: There is no significant disc pathology. Normal morphology of the ligamentum flava. No arthropathy of the uncovertebral and zygapophyseal joints. No significant spinal canal stenosis Spinal Cord and Nerve Roots: The spinal cord demonstrates normal signal intensity and caliber. No evidence of cord compression or intradural pathology. Nerve roots appear unremarkable bilaterally. Soft Tissues: Paraspinal soft tissues appear normal without evidence of abnormal signal intensity or mass lesions. IMPRESSION: 1. Moderate spondylosis of the cervical spine with mutlilevel degenerative disc lesions as described above more pronounced in C4-5, C5-6 and C6-C7 vertebral level causing moderate spinal canal stenosis along with neural foraminal narrowing resulting in compression over existing nerve roots, as detailed above 2. No gross interval change noted in comparison to previous CT scan Electronically signed by Radha Eric 10-01-2024 05:34 AM
[2024-10-01] MEDS: LEVOTHYROXINE SODIUM 75 MCG TABLET PO SCH (05:54)
[2024-10-01] MEDS: PANTOprazole 40 MG TAB PO SCH (05:54)
--- NOTE | 2024-10-01 06:14 | CT Scan Report ---
EXAM: CT angio chest PE protocol CLINICAL HISTORY: 118 ML OPTIRAY 320, CHEST PAIN, SOB TECHNIQUE: CT angiography of the chest was performed with intravenous contrast with the following protocol: axial images with, reconstructed coronal and sagittal images following PE protocol. One of these 3D techniques was utilized: Maximum Intensity Pixel (MIP), 3D Reconstructed Images, Volume Rendered Images, Surface Shaded Rendering. One of the following dose reduction techniques was utilized for this exam.Automated exposure control, adjustment of the mA and/or kV according to patient size, and use of iterative reconstruction. COMPARISON: Prior CT chest dated 03/29/2021. FINDINGS: Aorta and Great Vessels: Scattered aortic atherosclerotic calcified plaques are seen. Ascending Aorta: Normal in caliber, no aneurysm, dissection. Aortic Arch: Normal in caliber, no aneurysm, dissection. Descending Aorta: Normal in caliber, no aneurysm, dissection. Pulmonary Arteries: The main pulmonary artery and its branches are patent. No evidence of pulmonary embolism or significant stenosis. Dilated pulmonary artery and its branches noted. Heart: Cardiac Chambers: Mild cardiomegaly. Coaurse valvualr calcifciations are seen . Pericardium: No pericardial effusion or thickening. Prominent cardiophrenic fat pad is seen. Diffuse coronary atherosclerotic changes noted. Lungs and Pleura: Subtle groundglass changes in bilateral lungs with thickening of interlobular septae, the possibility of early/developing pulmonary edema cannot be entirely excluded. Subsegmetal atelectatic changes in bilateral lung bases. Minimal bilateral pleural effusion/pleural thickening. Mediastinum: Small retrocaval lymph nodes are noted . No mediastinal mass or abnormal lymphadenopathy. Normal appearance of the trachea and central bronchi. Hilar Structures: Hilar structures are normal without enlargement. Chest Wall: No mass lesions or abnormalities in the chest wall. Small hiatal hernia. Vascular Structures: Superior Vena Cava: Patent without evidence of stenosis or thrombus. Inferior Vena Cava: Patent without evidence of stenosis or thrombus. Bones and Soft Tissues: Moderate spondylosis of the thoracic spine is seen . No fractures, lytic, or blastic lesions of the visualized bony structures. Soft tissues are unremarkable. IMPRESSION: 1. No signs of acute pulmonary embolism noted 2. Signs of pulmonary hypertension noted. 3. Mild cardiomeglay is seen . 4. Subtle groundglass changes in bilateral lungs with thickening of interlobular septae, the possibility of early/developing pulmonary edema cannot be entirely excluded. 5. Minimal bilateral pleural effusion/pleural thickening. 6. Moderate spondylosis of the thoracic spine noted . Electronically signed by Radha Eric 10-01-2024 06:14 AM
[2024-10-01] MEDS: ACETAMINOPHEN 500 MG TAB PO PRN (07:23)
[2024-10-01] MEDS ORDERED: PNEUMOCOCCAL VACCINE (PCV20) 20-VAL CONJ-DIP CRM/PF 0.5 ML SYR IM ONE (08:00)
[2024-10-01] MEDS: METOPROLOL SUCC 25MG EXT REL TAB PO SCH (08:29)
[2024-10-01] MEDS: MULTIVITAMIN TAB PO SCH (08:29)
[2024-10-01] MEDS: oxyBUTYnin chloride 5 MG TAB PO SCH (08:29)
[2024-10-01] MEDS: DOXYCYCLINE HYCLATE 100 MG CAP PO SCH (08:29)
--- NOTE | 2024-10-01 09:24 | Cardiology Consultation ---
Date of Consultation October 01, 2024 Assessment & Plan (1) Decompensated heart failure: Decompensated Heart Failure: Pt presented with elevated D-dimer, but no imaging evidence of acute VTE. CXR without evidence of pulmonary congestion, but Chest CT suggests possible pulmonary edema/effusion. On PE, pt has trace edema at LEs, lungs are clear to occultation and no evidence of SOB at rest. Systolic murmur is heard on PE. TTE shows no significant change in her aortic stenosis, EF or ventricular function. Troponin trended down, although BNP was high at admission. Pt does not have diuretic on her home med list. She was given IV Lasix and presents today with 5kg weight loss since presentation to ED. Vitals are stable at this time. - Diuresis as needed - Continue Strict I/O's, weights, and CHF education - Consider diuretic for home use at discharge PCU DVT prophylaxis. Lovenox subcu Full code Supervising Physician Co-Signing Physician Notes Pt seen and examined. Agree with assessment and plan as outlined by Dr. Camilo. Impression: 1. Pulmonary edema on CT scan, asymptomatic -did receive 1 dose of IV lasix -no evidence of pulmonary edema currently -salt restriction, daily wts -prn diuretics 2. Moderate aortic stenosis -continue yearly surveillance echocardiograms 3. Mild mitral stenosis -as above History of Present Illness Reason for Consultation: Decompensated heart failure Requesting Physician: Dr. Chapito Dubois Attending Physician: Mitch Anthony MD History of Present Illness Pt is an 82 yo female with PMH of CHF, NAFLD, hypothyroidism, aortic stenosis, and recurrent LE cellulitis. She presented to to ED on 09/30 with c/o right UE weakness. This morning, pt is overall achy pain in her back, legs and arms. Pt reports she is frequently swollen in both legs and feet, but states she doesn't have much swelling today. Pt states her feet often feels stiff and itchy. Denies CP, SOB, palpitations, and lightheadedness in sitting or standing. Denies cough, congestion, dysuria, nausea, vomiting, diarrhea. Allergies Allergy/AdvReac Type Severity Reaction Status Date / Time No Known Allergies Allergy Verified 09/30/24 18:34 Home Medications Medication Instructions Recorded Confirmed Type artificial tears(hypromellose) 0.3 1 drp OPB Q4H PRN Dry Eye(S) 01/12/24 09/30/24 History % eye gel (Systane Gel) hydroxyzine HCl 10 mg tablet 10 mg PO BID 01/12/24 09/30/24 History hydroxyzine HCl 10 mg tablet 20 mg PO HS 01/12/24 09/30/24 History lamotrigine 200 mg tablet 200 mg PO HS 01/12/24 09/30/24 History levothyroxine 75 mcg tablet 75 mcg PO DAILY 01/12/24 09/30/24 History multivitamin 1 tab PO DAILY 01/12/24 09/30/24 History omeprazole 40 mg capsule,delayed 40 mg PO DAILYBB 01/12/24 09/30/24 History release oxybutynin chloride 5 mg tablet 2.5 mg PO BID 01/12/24 09/30/24 History paroxetine HCl 30 mg tablet 30 mg PO HS 01/12/24 09/30/24 History simethicone 125 mg chewable tablet 125 mg PO QID PRN .gas 01/12/24 09/30/24 History vit C 250 mg-vit E 90 mg-zinc 40 1 tab PO BID 01/12/24 09/30/24 History mg-copper 1 [id number] capsule (PreserVision AREDS-2) hydroxyzine HCl 10 mg tablet 10 - 20 mg PO DIRECTED PRN 01/13/24 09/30/24 History Anxiety/Mood acetaminophen 500 mg capsule 500 mg PO Q8H PRN Pain 09/30/24 09/30/24 History calcium 500 mg (as 1 tab PO DAILY 09/30/24 09/30/24 History carbonate)-vitamin D3 5 mcg (200 unit) tablet (Oyster Shell Calcium-Vitamin D3) calcium carbonate (Calcium Antacid) 1,000 mg PO QID PRN Heartburn 09/30/24 09/30/24 History loperamide 2 mg capsule (Imodium 2 - 4 mg PO .SEEASDIRECTED 09/30/24 09/30/24 History A-D) melatonin 3 mg disintegrating 3 mg PO HS PRN Insomnia 09/30/24 09/30/24 History tablet metoprolol succinate 25 mg 25 mg PO DAILY 09/30/24 09/30/24 History tablet,extended release 24 hr naproxen sodium 220 mg tablet 220 mg PO BID PRN Pain 09/30/24 09/30/24 History tramadol 50 mg tablet 50 mg PO TID PRN LEG PAIN 09/30/24 09/30/24 History Patient History Medical History Chronic renal insufficiency Diastolic heart failure Sepsis Stasis dermatitis Cellulitis Elevated liver enzymes Degenerative arthritis Cellulitis Anxiety Hypothyroidism Surgical History S/P cataract surgery Family History Father , age 76 of metastatic prostate cancer Cancer Prostate cancer Heart disease Mother , age 93 Rheumatoid arthritis Social History Smoking Status: Never smoker Second Hand Exposure: No; Do You Dip or Chew Tobacco: No; Hx Alcohol Use: No Hx Substance Use: No Preferred Language: [place] Communication Ability: Effective Plate Embosser Required: No Beliefs That Will Affect Care: None marital status: Single Current Living Situation: Personal Care Facility Current Living Situation Comment: [facility] current occupational status: retired 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57 How many Children do You have: 0 Other Information That Helps Us Care for You: No Feels Safe at Home: Yes Safety Concerns: Feels Safe At This Time Assistive Devices: Glasses, Walker and Wheelchair Review of Systems Review of Systems: As per HPI Physical Exam Constitutional: WD/WN, vitals as above ENMT: external ear and nose normal, oropharynx normal Neck: trachea midline, no thyromegaly Respiratory: normal respiratory effort; no respiratory distress and no labored breathing Auscultation: lungs clear to auscultation bilaterally Cardiovascular: Rate/Rhythm: regular rate and regular rhythm Heart Sounds: normal S1 and + murmur (Systolic) Extremities: + calf tenderness and + pedal edema (trace) 2+ pedal pulses Gastrointestinal (Abdomen): normal bowel sounds, soft, nontender, no hepatosplenomegaly Skin: + dry skin (bilateral lower legs) and + erythema (bilateral lower legs ankle to mid guerrero) Neurologic: PERRL, EOMI, accommodation nl, no face palsy, no dysarthria Psychiatric: A+Ox3, euthymic affect Results & Data Vital Signs (Past 12 Hours) Vital Signs Temp Pulse Pulse Resp BP Pulse Ox O2 Del Method 10/01/24 07:33 87 10/01/24 07:20 36.7 C 76 19 150/69 H 96 Room Air 10/01/24 02:34 36.7 C 75 18 137/75 95 Room Air 09/30/24 23:05 80 09/30/24 22:50 36.4 C L 74 16 156/57 H 97 Room Air 09/30/24 21:39 91 H 21 Laboratory Results Troponin trended in ED: 72 -> 76 -> 65 Hbg 12.4, D-Dimer 1860, BNP 837 TTE showed EF 70%, left ventricular hypertrophy and hyperdynamic, moderate aortic stenosis, mild-moderate mitral stenosis. No significant change from last TTE on May 2023. Diagnostic Findings LE doppler- No DVT noted CT Chest- No PE noted, possible pulmonary edema, pleural effusion/thickening Medications Administered Furosemide 20mg IV Metoprolol 25 mg PO PG Care Time/CCT Total # of Minutes Spent Total Time Spent with Patient: Total time spent is greater than 50% in coordination of care (as documented) at patient's floor/unit and/or counseling patient: Coding Level of Care Code 78834 INT INP/OBS CARE 3/75MIN Diagnoses Decompensated heart failure I50.9 Resident Activity Tracking Resident Involvement: Resident Care Provided Care Provided: Adult Hospital Medicine
[2024-10-01] MEDS: ENOXAPARIN INJ 30 MG/0.3 ML SYR SQ SCH (09:46)
--- NOTE | 2024-10-01 10:01 | XCELERA ---
[id number]
--- NOTE | 2024-10-01 11:13 | Consultation ---
Date of Consultation October 01, 2024 Assessment & Plan (1) Right hand weakness: Dr. Araujo has reviewed imaging. MRI is a poor scan, appears to have significnt motion artifact. She has no significant/severe central canal stenosis but does have some foraminal stenosis which could be the source of her right hand weakness. Currently a poor standard surgical candidate in light of her bilateral lower extremity cellulitis. Will start some occupational therapy for her right upper extremity. She can follow-up in our office as an outpatient where we can reassess her and discuss surgical intervention if warranted. History of Present Illness Reason for Consultation: Neck pain, abnormal MRI Attending Physician: Mitch Anthony MD History of Present Illness This is a pleasant 83-year-old female who is a resident of [facility] who presented to the ER yesterday with complaints of right hand weakness x 3 days. She has some intermittent neck pain. This is not unusual for her. She feels a "stretch" sensation that radiates from her right shoulder, tricep, ulnar aspect of her forearm to her hand. No numbness, paresthesia. Past couple days she has had difficulty feeding herself due to weakness in her right hand. She is right- hand dominant. She ambulates with a walker at the [facility]. She is also had diffuse aches affecting upper and lower extremities. She notes chills. She is also admitted for recurrent cellulitis affecting bilateral lower extremities. Cardiology team is also following along due to elevated D-dimer and troponins upon admission. Patient has known severe aortic stenosis. Chest CTA is negative for PE Allergies Allergy/AdvReac Type Severity Reaction Status Date / Time No Known Allergies Allergy Verified 09/30/24 18:34 Home Medications Medication Instructions Recorded Confirmed Type artificial tears(hypromellose) 0.3 1 drp OPB Q4H PRN Dry Eye(S) 01/12/24 09/30/24 History % eye gel (Systane Gel) hydroxyzine HCl 10 mg tablet 10 mg PO BID 01/12/24 09/30/24 History hydroxyzine HCl 10 mg tablet 20 mg PO HS 01/12/24 09/30/24 History lamotrigine 200 mg tablet 200 mg PO HS 01/12/24 09/30/24 History levothyroxine 75 mcg tablet 75 mcg PO DAILY 01/12/24 09/30/24 History multivitamin 1 tab PO DAILY 01/12/24 09/30/24 History omeprazole 40 mg capsule,delayed 40 mg PO DAILYBB 01/12/24 09/30/24 History release oxybutynin chloride 5 mg tablet 2.5 mg PO BID 01/12/24 09/30/24 History paroxetine HCl 30 mg tablet 30 mg PO HS 01/12/24 09/30/24 History simethicone 125 mg chewable tablet 125 mg PO QID PRN .gas 01/12/24 09/30/24 History vit C 250 mg-vit E 90 mg-zinc 40 1 tab PO BID 01/12/24 09/30/24 History mg-copper 1 ym-fkjega-vohjal capsule (PreserVision AREDS-2) hydroxyzine HCl 10 mg tablet 10 - 20 mg PO DIRECTED PRN 01/13/24 09/30/24 History Anxiety/Mood acetaminophen 500 mg capsule 500 mg PO Q8H PRN Pain 09/30/24 09/30/24 History calcium 500 mg (as 1 tab PO DAILY 09/30/24 09/30/24 History carbonate)-vitamin D3 5 mcg (200 unit) tablet (Oyster Shell Calcium-Vitamin D3) calcium carbonate (Calcium Antacid) 1,000 mg PO QID PRN Heartburn 09/30/2409/30 History loperamide 2 mg capsule (Imodium 2 - 4 mg PO .SEEASDIRECTED 09/30/24 09/30/24 History A-D) melatonin 3 mg disintegrating 3 mg PO HS PRN Insomnia 09/30/24 09/30/24 History tablet metoprolol succinate 25 mg 25 mg PO DAILY 09/30/24 09/30/24 History tablet,extended release 24 hr naproxen sodium 220 mg tablet 220 mg PO BID PRN Pain 09/30/24 09/30/24 History tramadol 50 mg tablet 50 mg PO TID PRN LEG PAIN 09/30/24 09/30/24 History Patient History Medical History Chronic renal insufficiency Diastolic heart failure Sepsis Stasis dermatitis Cellulitis Elevated liver enzymes Degenerative arthritis Cellulitis Anxiety Hypothyroidism Surgical History S/P cataract surgery Family History Father , age 76 of metastatic prostate cancer Cancer Prostate cancer Heart disease Mother , age 93 Rheumatoid arthritis Social History Smoking Status: Never smoker Second Hand Exposure: No; Do You Dip or Chew Tobacco: No; Hx Alcohol Use: No Hx Substance Use: No Preferred Language: Rwandan Communication Ability: Effective Topline Beading Machine Tender Required: No Beliefs That Will Affect Care: None marital status: Single Current Living Situation: Personal Care Facility Current Living Situation Comment: [facility] current occupational status: retired 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 She has a 2 out of 5 right wrist extension and finger intrinsics. Strength is intact left upper extremity. She is 5/5 right biceps, triceps, deltoid and wrist flexor minimal pain of cervical spine with flexion,extension Results & Data Vital Signs (Past 12 Hours) Vital Signs Temp Pulse Pulse Resp BP Pulse Ox O2 Del Method 10/01/24 10:51 36.7 C 72 19 127/70 96 Room Air 10/01/24 07:33 87 10/01/24 07:20 36.7 C 76 19 150/69 H 96 Room Air 10/01/24 02:34 36.7 C 75 18 137/75 95 Room Air Diagnostic Findings [place], [place] [phone] Magnetic Resonance Report Patient: JAMES AMOS Admit Date: 09/30/24 MR#: [id number] Address1: [address] [place] [address] Acct ID:[id number] Address2: Date: 1940 [facility] Zip: [place] [address] Age: 83 Location: 4W Sex: F Room/Bed: [facility] Att Phy: Mitch Anthony MD Diagnosis: CHF Mary Phy: Jeannette Lo MD Service Date: 10/01/24 Fam Phy: Interpreting Phy: Radha Eric MDAdmit Phy: Chapito Dubois MD Ordering Phy: Chapito Dubois MD cc: ~ EXAM: MR cervical spine wo con CLINICAL HISTORY: patient reports via ems for right wrist weakness that started 3 days ago. sob. shakiness. weakness right wrist. no known injury. CT cervical spine on 09/30/24 Used some propeller scans. Best scans possible at this time. TECHNIQUE: MRI of the cervical spine was performed. Sequences obtained include sagittal T1-weighted, T2-weighted, STIR (Short Tau Inversion Recovery), and axial T2-weighted sequences. Additional sequences such as gradient echo (GRE) or post-contrast T1-weighted images may have been included based on clinical indication. COMPARISON: Comparison is made with prior imaging studies dated 09/30/2024 . FINDINGS: Vertebral Alignment: There is significant curvature deformity noted resulting in suboptimal evaluation of disc disease. Grade 1 anterolisthesis of C3 over C4 vertebra noted Multilevel anterior marginal osteophytes are also seen Vertebral Bodies and Intervertebral Discs: The height of vertebral bodies appears within normal limits. Multilevel reduced intervening disc space noted Multilevel disc dehydration seen [id number] analysis: C2-C3: There is no significant disc pathology. Normal morphology of the ligamentum flava. No arthropathy of the uncovertebral and zygapophyseal joints. No significant spinal canal stenosis C3-C4: There is a 2.9 mm posterior disc protrusion indnets the ventrla theca with moderate bilateral exit neural foraminal compromise , Normal morphology of the ligamentum flava. No arthropathy of the uncovertebral and zygapophyseal joints. No significant spinal canal stenosis C4-C5:There is 3.6 mm disc osteophyte complex with with right preponderance causing mild to moderate spinal canal stenosis along with bilateral neural foraminal narrowing resulting in compression over existing nerve roots C5-C6: Disc osteophyte complex measuring 4.1 mm causing moderate spinal canal stenosis along with significant bilateral neuroforaminal narrowing resulting in compression over existing nerve roots C6-C7: There is disc osteophyte complex of 3.6 mm causing moderate spinal canal stenosis along with bilateral neuroforaminal narrowing resulting in compression over existing nerve root C7-T1: There is no significant disc pathology. Normal morphology of the ligamentum flava. No arthropathy of the uncovertebral and zygapophyseal joints. No significant spinal canal stenosis Spinal Cord and Nerve Roots: The spinal cord demonstrates normal signal intensity and caliber. No evidence of cord compression or intradural pathology. Nerve roots appear unremarkable bilaterally. Soft Tissues: Paraspinal soft tissues appear normal without evidence of abnormal signal intensity or mass lesions. IMPRESSION: 1. Moderate spondylosis of the cervical spine with mutlilevel degenerative disc lesions as described above more pronounced in C4-5, C5-6 and C6-C7 vertebral level causing moderate spinal canal stenosis along with neural foraminal narrowing resulting in compression over existing nerve roots, as detailed above 2. No gross interval change noted in comparison to previous CT scan Electronically signed by Radha Eric 10-01-2024 05:34 AM Dictated: 10/01/24 0030 Transcribed:
[2024-10-01] MEDS: hydrOXYzine HCl 10 MG TAB PO SCH (12:05)
--- NOTE | 2024-10-01 12:20 | Hospitalist Progress Note ---
Date of Service October 01, 2024 Assessment & Plan (1) Decompensated heart failure: Plan: Acute diastolic heart failure Moderate aortic stenosis Likely multifactorial secondary to A-fib RVR, valvular heart disease --Imaging studies suggestive of developing pulmonary edema --ECHO: No regional wall motion abnormality. Moderate concentric LVH. EF greater than 70%. Moderate aortic stenosis. Mild mitral stenosis. Echo unchanged from prior --Received IV Lasix --Monitor I's and O's, daily weight, volume status --Cardiology on board Saturating well on room air Additional diuretics as needed A-fib RVR--POA H/O paroxysmal A-fib Not on chronic anticoagulation Currently in sinus Continue metoprolol B/L LE Cellulitis H/O stasis dermatitis Continue Rocephin, doxycycline Elevated D-dimer --CTA showed no signs of PE --Venous Doppler: showed no DVT Elevated troponin Likely demand ischemia secondary to CHF, A-fib Echo showed no wall motion abnormality Patient denies any chest pain Right knee effusion ? Due to osteoarthritis --Knee X ray:Increased lateral joint space degenerative changes. Suprapatellar joint effusion. -- Orthopedics consulted PT OT, fall precautions Recent right hip fracture S/P S/P right hip intramedullary nailing Reports intermittent right hip pain --R femur CT:Interval comminuted intertrochanteric fracture of the right hip with incomplete healing of the presence of a femoral head and neck compression screw and proximal femoral intramedullary anai. No acute fracture. No dislocation. Degenerative changes of the right knee including increased lateral joint space degenerative changes and a suprapatellar joint effusion. -- Fall precautions, PT OT Orthopedics consulted Right Upper Extremity Weakness/Wrist Pain Likely due to cervical spine stenosis --Cervical Spine MRI:Moderate spondylosis of the cervical spine with mutlilevel degenerative disc lesions as described above more pronounced in C4-5, C5-6 and C6-C7 vertebral level causing moderate spinal canal stenosis along with neural foraminal narrowing resulting in compression over existing nerve roots --Appreciate orthopedic spine input Poor surgical candidate Continue PT OT Needs follow-up with orthopedics spine on discharge Will obtain wrist x-ray Bilateral groin lymphadenopathy Incidental finding on venous Doppler Doppler showed:Prominent lymph nodes are seen in bilateral groin region, largest on the right measuring 1.7 x 0.8 x 1.4 cm and largest on the left measuring 2.1 x 0.9 x 1.6 cm. 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 with [facility] key operator Monitor Mood disorder Continue home medications DVT Px: Lovenox SQ CODE STATUS Full code Disposition To be determined Admission and Anticipated Discharge Date Admission Date: September 30, 2024 Subjective Patient is seen and examined at bedside Leg edema, pain better still has erythema Also reports intermittent right hip, knee pain Denies any chest pain, dyspnea Also reports decreased movement of right wrist No other complaints Review of Systems Review of Systems: All systems reviewed & are unremarkable except as noted in Subjective Physical Exam Physical Exam: Physical Exam: Vitals signs as noted above General Appearance:Moderately built and nourished, no apparent distress Head: normocephalic, Atraumatic Eyes: normal inspection, EOMI Neck: supple, Trachea midline Respiratory/Chest: Normal breath sounds, CTA, No accessory muscle use Cardiovascular: S1, S2, +murmur Abdomen/GI:Soft, Non tender, Bowel sounds present Extremities/Musculoskeletal:normal inspection, R Hip, knee tender, B/L LE erythema, warm, trace edema Neurologic/Psych:AAOX3, grossly no focal neurological deficits Skin: normal color, warm Results & Data Results & Data Vital Signs (Past 12 Hours) Vital Signs Temp Pulse Pulse Resp BP Pulse Ox O2 Del Method 10/01/24 10:51 36.7 C 72 19 127/70 96 Room Air 10/01/24 07:33 87 10/01/24 07:20 36.7 C 76 19 150/69 H 96 Room Air 10/01/24 02:34 36.7 C 75 18 137/75 95 Room Air Laboratory Results Short CBC 09/30/24 10/01/24 Range/Units 15:30 04:17 WBC 7.22 7.25 (4.8-10.8) K/ul Hgb 11.7 L 12.4 (12.0-16.0) g/dl Hct 36.1 L 38.2 (37.0-47.0) % Plt Count 290 324 (130-400) K/uL BMP 09/30/24 10/01/24 15:30 04:17 Sodium 137 137 Potassium 4.0 3.7 Chloride 102 99 Carbon Dioxide 29 29 BUN 15 16 Creatinine 0.84 0.78 Glucose 85 175 H Calcium 9.2 9.4 Liver Function 09/30/24 Range/Units 15:30 Total Bilirubin 1.0 (0.2-1.0) mg/dl AST 29 (13-39) U/L ALT 31 (7-52) U/L Alkaline Phosphatase 240 H (34-104) U/L Albumin 3.7 (3.4-5.0) gm/dl Urine 09/30/24 Range/Units 17:50 Urine Color Yellow Urine Appearance Clear (Clear) Urine pH 7.5 (4.5-7.5) Ur Specific [place] 1.019 (1.000-1.030) Urine Protein Negative (Negative) Urine Glucose (UA) Negative (Negative)
--- NOTE | 2024-10-01 15:41 | XRay Report ---
XR wrist RT min 3V routine HISTORY: 83 years-old Female Wrist Pain acute right wrist pain COMPARISON: 09/06/2018 TECHNIQUE: 4 views of the right wrist FINDINGS: Female has appearance of the bones. Multifocal osteoarthritis, moderate in the first carpometacarpal joint. No acute fracture, dislocation or osseous erosion. There is mild circumferential soft tissue s welling. IMPRESSION: No acute fracture or dislocation. ACT 112: Negative or not required by law. The above report was generated using voice recognition software. It may contain grammatical, syntax o r spelling errors. Electronically signed by: Arsenio Weinstein M.D. 10/01/2024 3:39 PM
--- NOTE | 2024-10-01 15:44 | Orthopedic Consultation ---
Date of Service October 01, 2024 Assessment & Plan (1) Osteoarthritis of right knee: Zhane has multiple orthopedic complaints. She has pain and weakness of her upper extremities and has been seen by orthopedic spine for that. She has a nonhealing intertrochanteric hip fracture which is being treated at [facility]. She is also doing with some right knee pain. I she is not a surgical candidate at this time. I think we should try a cortisone injection in the right knee. She also has some cellulitis of her right lower extremity and she is currently on antibiotics for that. Will hopefully be able to give her the injection tomorrow at bedside. History of Present Illness Reason for Consultation: Osteoarthritis of the right knee. Requesting Physician: . Attending Physician: Mitch Anthony MD Zhane is a pleasant 83-year-old female who was admitted to the hospital with diastolic heart failure. She has a history of a right intertrochanteric hip fracture in February 2024. She was not healthy enough to be done at [facility] so she was transferred to [facility] where an intramedullary nail was placed. She has been following up with her [facility] physician for that. She is also been dealing with some right knee pain. X-rays in the hospital showed arthritis in the right knee. She is doing with cellulitis of her lower extremities as well. Orthopedics was consulted to evaluate and treat her lower extremity pain. Allergies Allergy/AdvReac Type Severity Reaction Status Date / Time No Known Allergies Allergy Verified 09/30/24 18:34 Home Medications Medication Instructions Recorded Confirmed Type artificial tears(hypromellose) 0.3 1 drp OPB Q4H PRN Dry Eye(S) 01/12/24 09/30/24 History % eye gel (Systane Gel) hydroxyzine HCl 10 mg tablet 10 mg PO BID 01/12/24 09/30/24 History hydroxyzine HCl 10 mg tablet 20 mg PO HS 01/12/24 09/30/24 History lamotrigine 200 mg tablet 200 mg PO HS 01/12/24 09/30/24 History levothyroxine 75 mcg tablet 75 mcg PO DAILY 01/12/24 09/30/24 History multivitamin 1 tab PO DAILY 01/12/24 09/30/24 History omeprazole 40 mg capsule,delayed 40 mg PO DAILYBB 01/12/24 09/30/24 History release oxybutynin chloride 5 mg tablet 2.5 mg PO BID 01/12/24 09/30/24 History paroxetine HCl 30 mg tablet 30 mg PO HS 01/12/24 09/30/24 History simethicone 125 mg chewable tablet 125 mg PO QID PRN .gas 01/12/24 09/30/24 History vit C 250 mg-vit E 90 mg-zinc 40 1 tab PO BID 01/12/24 09/30/24 History mg-copper 1 zg-nauqem-pyhptz capsule (PreserVision AREDS-2) hydroxyzine HCl 10 mg tablet 10 - 20 mg PO DIRECTED PRN 01/13/24 09/30/24 History Anxiety/Mood acetaminophen 500 mg capsule 500 mg PO Q8H PRN Pain 09/30/24 09/30/24 History calcium 500 mg (as 1 tab PO DAILY 09/30/24 09/30/24 History carbonate)-vitamin D3 5 mcg (200 unit) tablet (Oyster Shell Calcium-Vitamin D3) calcium carbonate (Calcium Antacid) 1,000 mg PO QID PRN Heartburn 09/30/24 09/30/24 History loperamide 2 mg capsule (Imodium 2 - 4 mg PO .SEEASDIRECTED 09/30/24 09/30/24 History A-D) melatonin 3 mg disintegrating 3 mg PO HS PRN Insomnia 09/30/24 09/30/24 History tablet metoprolol succinate 25 mg 25 mg PO DAILY 09/30/24 09/30/24 History tablet,extended release 24 hr naproxen sodium 220 mg tablet 220 mg PO BID PRN Pain 09/30/24 09/30/24 History tramadol 50 mg tablet 50 mg PO TID PRN LEG PAIN 09/30/24 09/30/24 History Past Med/Surg History Problem List (Updated 10/01/24 @ 15:43 by Destin Neri DO) Osteoarthritis of right knee Decompensated heart failure Anemia (Acute) Right hand weakness (Acute) Elevated troponin (Acute) Cholelithiasis Hypokalemia Fever (Acute) Rigors (Acute) Cellulitis (Acute) Elevated LFTs Dyspepsia Pain of right heel Transaminitis (Acute) CRP elevated (Acute) Elevated erythrocyte sedimentation rate (Acute) Cellulitis of left lower leg (Acute) Cellulitis of right lower leg (Acute) Bilateral lower leg cellulitis (Acute) Leukocytosis (Acute) SIRS (systemic inflammatory response syndrome) (Acute) Right knee pain Aortic stenosis Hypoxia JOSEFINA (acute kidney injury) Depression with anxiety Swelling of both lower extremities Cellulitis (Acute) Sensory polyneuropathy Falling Gait disturbance (Acute) Essential tremor Traumatic ulceration of tongue Thyroid disease COVID-19 (Acute) Fracture, thoracic vertebra (Acute) COVID-19 virus infection Paroxysmal atrial fibrillation with RVR (Acute) Heart murmur Patient will be scheduled for an echocardiogram she is no recollection of being told that she had a heart murmur Postherpetic neuralgia (Chronic) Rib fracture (Acute) Weakness (Acute) Medical History Chronic renal insufficiency Diastolic heart failure Sepsis Stasis dermatitis Cellulitis Elevated liver enzymes Degenerative arthritis Cellulitis Anxiety Hypothyroidism Surgical History S/P cataract surgery Family History Father , age 76 of metastatic prostate cancer Cancer Prostate cancer Heart disease Mother , age 93 Rheumatoid arthritis Social History Smoking Status: Never smoker Second Hand Exposure: No; Do You Dip or Chew Tobacco: No; Hx Alcohol Use: No Hx Substance Use: No Preferred Language: Greek Communication Ability: Effective Wet Suit Gluer Required: No Beliefs That Will Affect Care: None marital status: Single Current Living Situation: Personal Care Facility Current Living Situation Comment: [facility] current occupational status: retired 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 Physical Exam On physical exam of the right leg, she has a small effusion. She has good range of motion of her knee. Pain of the distal femoral condyles. She does have cellulitis around her ankle that extends up to her mid tibial region.. Constitutional WD/WN, vitals as above Eyes PERRL, conjunctivae normal, anicteric sclerae ENMT external ear and nose normal, oropharynx normal Neck trachea midline, no thyromegaly Respiratory normal respiratory effort Cardiovascular RRR, no murmur, no edema Gastrointestinal (Abdomen) normal bowel sounds, soft, nontender, no hepatosplenomegaly Psychiatric A+Ox3, euthymic affect Results & Data Results & Data Laboratory Results . Diagnostic Findings X-rays of the right knee show advanced osteoarthritis with joint space narrowing , osteophyte formation, and [id number] articulation.. PG Care Time/CCT Total # of Minutes Spent Total Time Spent with Patient: Total time spent is greater than 50% in coordination of care (as documented) at patient's floor/unit and/or counseling patient: Coding Level of Care Code 00999 IN/OBS CONSULT LVL 4,60M Diagnoses Osteoarthritis of right knee M17.11
--- NOTE | 2024-10-01 15:46 | Communication Note ---
Date of Service: October 01, 2024 Try to reach patient's family to update. Despite multiple calls, unable to reach.
[2024-10-01] MEDS: cefTRIAXone SODIUM 1,000 MG/50 ML BAG IV SCH (16:58)
[2024-10-02 05:23] LABS: BUN Creatinine Ratio 22.8 (10-20); Creatinine Clr Calc Pharmacy 35.2 ml/min; Magnesium 1.8 mg/dl (1.7-2.4); Potassium 3.9 mmol/L (3.5-5.1)
[2024-10-02] MEDS: traMADol HCL 50 MG TABLET PO PRN (06:06)
[2024-10-02 07:48] LABS: Estimated Average Glucose 120 mg/dl; Hemoglobin A1C 5.8 % (4.5-5.6)
--- NOTE | 2024-10-02 15:19 | Hospitalist Progress Note ---
Date of Service October 02, 2024 Assessment & Plan (1) Decompensated heart failure: Plan: Acute diastolic heart failure Moderate aortic stenosis Likely multifactorial secondary to A-fib RVR, valvular heart disease --Imaging studies suggestive of developing pulmonary edema --ECHO: No regional wall motion abnormality. Moderate concentric LVH. EF greater than 70%. Moderate aortic stenosis. Mild mitral stenosis. Echo unchanged from prior --Received IV Lasix --Monitor I's and O's, daily weight, volume status --Cardiology on board Saturating well on room air Additional diuretics as needed Appears euvolemic today A-fib RVR--POA H/O paroxysmal A-fib Not on chronic anticoagulation Currently in sinus Continue metoprolol B/L LE Cellulitis H/O stasis dermatitis Continue Rocephin, doxycycline Continue current management Elevated D-dimer --CTA showed no signs of PE --Venous Doppler: showed no DVT Elevated troponin Likely demand ischemia secondary to CHF, A-fib Echo showed no wall motion abnormality Patient denies any chest pain Right knee effusion ? Due to osteoarthritis --Knee X ray:Increased lateral joint space degenerative changes. Suprapatellar joint effusion. -- Orthopedics consulted PT OT, fall precautions Orthopedics plans to try cortisone injection of right knee Poor surgical candidate per orthopedics Recent right hip fracture S/P S/P right hip intramedullary nailing Reports intermittent right hip pain --R femur CT:Interval comminuted intertrochanteric fracture of the right hip with incomplete healing of the presence of a femoral head and neck compression screw and proximal femoral intramedullary anai. No acute fracture. No dislocation. Degenerative changes of the right knee including increased lateral joint space degenerative changes and a suprapatellar joint effusion. -- Fall precautions, PT OT Orthopedics on board Right Upper Extremity Weakness/Wrist Pain Likely due to cervical spine stenosis --Cervical Spine MRI:Moderate spondylosis of the cervical spine with mutlilevel degenerative disc lesions as described above more pronounced in C4-5, C5-6 and C6-C7 vertebral level causing moderate spinal canal stenosis along with neural foraminal narrowing resulting in compression over existing nerve roots --R wrist x-ray:No acute fracture or dislocation. --Appreciate orthopedic spine input Poor surgical candidate Continue PT OT Needs follow-up with orthopedics spine on discharge May need nerve conduction study as outpatient Bilateral groin lymphadenopathy Incidental finding on venous Doppler Doppler showed:Prominent lymph nodes are seen in bilateral groin region, largest on the right measuring 1.7 x 0.8 x 1.4 cm and largest on the left measuring 2.1 x 0.9 x 1.6 cm. 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 Monitor Mood disorder Continue home medications DVT Px: Lovenox SQ CODE STATUS Full code Disposition To be determined Admission and Anticipated Discharge Date Admission Date: September 30, 2024 Subjective Patient is seen and examined at bedside States having right knee pain and ongoing right hip pain No new complaints today Updated patient's family over the phone Still has bilateral lower extremity discomfort, erythema Denies any chest pain, dyspnea, nausea, abdominal pain Review of Systems Review of Systems: All systems reviewed & are unremarkable except as noted in Subjective Physical Exam Physical Exam: Physical Exam: Vitals signs as noted above General Appearance:Moderately built and nourished, no apparent distress Head: normocephalic, Atraumatic Eyes: normal inspection, EOMI Neck: supple, Trachea midline Respiratory/Chest: Normal breath sounds, CTA, No accessory muscle use Cardiovascular: S1, S2, +murmur Abdomen/GI:Soft, Non tender, Bowel sounds present Extremities/Musculoskeletal:normal inspection, R Hip, knee tender, B/L LE erythema, warm, trace edema Neurologic/Psych:AAOX3, grossly no focal neurological deficits Skin: normal color, warm Results & Data Results & Data Vital Signs (Past 12 Hours) Vital Signs Temp Pulse Pulse Resp BP Pulse Ox O2 Del Method 10/02/24 14:17 77 10/02/24 11:18 37.4 C 70 18 115/66 96 Room Air 10/02/24 07:50 37.7 C H 81 19 146/66 H 95 Room Air 10/02/24 07:16 81 10/02/24 03:27 36.9 C 86 18 126/69 96 Room Air Laboratory Results [facility] 10/02/24 04:48 Sodium 137 Potassium 3.9 Chloride 101 Carbon Dioxide 29 BUN 23 Creatinine 1.01 Glucose 131 H Calcium 9.0
--- NOTE | 2024-10-02 15:56 | Orthopedic Progress Note ---
Date of Service October 02, 2024 Assessment & Plan (1) Osteoarthritis of right knee: She wants to proceed with steroid injection for the knee today. She can follow up with us or her pcp for injections as outpatient. Procedure note: Right knee sterilely prepped with alcohol and using aseptic technique 2ml of kenalog and 8ml of marcaine were injected into the right knee. She tolerated the procedure well. No complications. Subjective . 83 year old patient seen by Dr Neri yesterday for right knee pain. She has right knee arthritis and they discussed an injection. She would like to proceed with that today. She has received intraarticular knee injections with her pcp in the past. Review of Systems All systems reviewed & are unremarkable except as noted in HPI & below. Physical Exam . Right leg: valgus alignment to knee. Minimal effusion today. No erythema involving the knee. She has erythema of her lower legs. Results & Data Results & Data Laboratory Results . Diagnostic Findings . PG Care Time/CCT Total # of Minutes Spent Total Time Spent with Patient: Total time spent is greater than 50% in coordination of care (as documented) at patient's floor/unit and/or counseling patient: Coding Level of Care Code 85982 SUB INP/OBS CARE 2/35MIN Diagnoses Osteoarthritis of right knee M17.11
[2024-10-02] MEDS: BUPIVACAINE 0.25% PF 30 ML VIAL INFIL ONE (17:09)
[2024-10-02] MEDS: TRIAMCINOLONE ACET 40 MG/ML VIAL IA ONE (17:09)
[2024-10-02] MEDS: BUPIVACAINE/EPINEPHRINE 0.25% 1:200,000 30 ML VIAL INFIL ONE (17:11)
[2024-10-02] MEDS: METOPROLOL TARTRATE 1 MG/ML VIAL IV ONE (18:31)
[2024-10-02] MEDS: METOPROLOL TARTRATE 1 MG/ML VIAL IV STA (18:31)
[2024-10-02] MEDS ORDERED: METOPROLOL TARTRATE 1 MG/ML VIAL IV PRN ×2 (19:15→19:17)
[2024-10-02] MEDS: METOPROLOL SUCC 25MG EXT REL TAB PO SCH (20:28)
[2024-10-03 06:14] LABS: Hemoglobin 11.8 g/dl (12.0-16.0); Mean Corpuscular Hemoglobin 30.2 pg (25.0-34.0); Mean Corpuscular Hgb Conc 32.8 g/dL (32.0-36.0); Mean Corpuscular Volume 92.1 fL (80.0-100.0); Mean Platelet Volume 8.8 fL (9.4-12.4); Platelet Count 285 K/uL (130-400); RDW Coefficient of Variation 12.9 % (11.5-14.5); RDW Standard Deviation 43.1 fL (36.4-46.3); Red Blood Count 3.91 M/uL (4.20-5.40); White Blood Count 6.17 K/ul (4.8-10.8)
[2024-10-03 06:31] LABS: BUN Creatinine Ratio 27.5 (10-20); Calcium 9.1 mg/dl (8.6-10.3); Creatinine Clr Calc Pharmacy 40.9 ml/min; Magnesium 1.9 mg/dl (1.7-2.4); Potassium 4.7 mmol/L (3.5-5.1)
[2024-10-03 08:10] VITALS: RESP 18
--- NOTE | 2024-10-03 16:40 | Hospitalist Progress Note ---
Date of Service October 03, 2024 Assessment & Plan (1) Decompensated heart failure: Plan: Cardiology is on board [facility] one-time except acute diastolic heart failure Moderate aortic stenosis Likely multifactorial secondary to A-fib RVR, valvular heart disease --Imaging studies suggestive of developing pulmonary edema --ECHO: No regional wall motion abnormality. Moderate concentric LVH. EF greater than 70%. Moderate aortic stenosis. Mild mitral stenosis. Echo unchanged from prior --Received IV Lasix --Monitor I's and O's, daily weight, volume status --Cardiology on board Saturating well on room air Additional diuretics as needed Appears euvolemic today Remains clinically stable without any cardiac symptoms of palpitation or shortness of breath or any chest pain A-fib RVR--POA H/O paroxysmal A-fib Not on chronic anticoagulation Currently in sinus Continue metoprolol Remains in sinus rhythm with rate controlled at 69 B/L LE Cellulitis H/O stasis dermatitis Continue Rocephin, doxycycline Continue current management Bilateral skin changes in the legs likely chronic with redness doubt any infection Will finish the course of antibiotic Elevated D-dimer --CTA showed no signs of PE --Venous Doppler: showed no DVT Elevated troponin Likely demand ischemia secondary to CHF, A-fib Echo showed no wall motion abnormality Patient denies any chest pain Right knee effusion Due to osteoarthritis --Knee X ray:Increased lateral joint space degenerative changes. Suprapatellar joint effusion. -- Orthopedics consulted PT OT, fall precautions Orthopedics plans to try cortisone injection of right knee Poor surgical candidate per orthopedics Status post right knee injection with steroid and she has been feeling much better following the injection Recent right hip fracture S/P S/P right hip intramedullary nailing Reports intermittent right hip pain --R femur CT:Interval comminuted intertrochanteric fracture of the right hip with incomplete healing of the presence of a femoral head and neck compression screw and proximal femoral intramedullary anai. No acute fracture. No dislocation. Degenerative changes of the right knee including increased lateral joint space degenerative changes and a suprapatellar joint effusion. -- Fall precautions, PT OT Orthopedics on board Likely to need rehab placement Right Upper Extremity Weakness/Wrist Pain Likely due to cervical spine stenosis --Cervical Spine MRI:Moderate spondylosis of the cervical spine with mutlilevel degenerative disc lesions as described above more pronounced in C4-5, C5-6 and C6-C7 vertebral level causing moderate spinal canal stenosis along with neural foraminal narrowing resulting in compression over existing nerve roots --R wrist x-ray:No acute fracture or dislocation. --Appreciate orthopedic spine input Poor surgical candidate Continue PT OT Needs follow-up with orthopedics spine on discharge May need nerve conduction study as outpatient Bilateral groin lymphadenopathy Incidental finding on venous Doppler Doppler showed:Prominent lymph nodes are seen in bilateral groin region, largest on the right measuring 1.7 x 0.8 x 1.4 cm and largest on the left measuring 2.1 x 0.9 x 1.6 cm. 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 Monitor Mood disorder Continue home medications DVT Px: Lovenox SQ CODE STATUS Full code Disposition To be determined Admission and Anticipated Discharge Date Admission Date: September 30, 2024 Subjective 10/03/2024 The patient was seen and examined in telemetry unit She has multitude of complaints including glaucoma, osteoarthritis, poor circulation in the legs neuropathy which are all stable Also complained to have sudden pain involving the right upper extremity Denies any chest pain and/or palpitation Review of Systems Review of Systems: All systems reviewed and are unremarkable except as noted below Physical Exam Physical Exam: Lying in bed without any acute distress Constitutional: + ill appearing and average body habitus Eyes: PERRL, conjunctivae normal, anicteric sclerae ENMT: external ear and nose normal, oropharynx normal Neck: trachea midline, no thyromegaly Respiratory: no respiratory distress Auscultation: lungs clear to auscultation bilaterally Cardiovascular: Rate/Rhythm: regular rate and regular rhythm; not tachycardic Heart Sounds: normal S1, normal S2 and + murmur Extremities: no edema Gastrointestinal (Abdomen): Inspection/Auscultation: normal bowel sounds; abdomen not distended Percussion/Palpation: abdomen soft; abdomen nontender Musculoskeletal: No acute arthritis involving any of the joint Neurologic: normal touch/pain/proprioception and moves all extremities; no focal motor deficits Lymphatic: no cervical or axillary lymphadenopathy Results & Data Results & Data Vital Signs (Past 12 Hours) Vital Signs Temp Pulse Pulse Resp BP Pulse Ox O2 Del Method 10/03/24 16:19 36.8 C 69 18 124/58 L 98 Room Air 10/03/24 14:32 72 10/03/24 12:11 37.0 C 64 18 113/58 L 97 Room Air 10/03/24 08:08 36.7 C 60 18 163/55 H 97 Room Air 10/03/24 07:53 63 Laboratory Results Short CBC 10/03/24 Range/Units 05:45 WBC 6.17 (4.8-10.8) K/ul Hgb 11.8 L (12.0-16.0) g/dl Hct 36.0 L (37.0-47.0) % Plt Count 285 (130-400) K/uL BMP 10/03/24 05:45 Sodium 136 Potassium 4.7 D Chloride 101 Carbon Dioxide 28 BUN 22 Creatinine 0.80 Glucose 151 H Calcium 9.1 Medications Administered Current Inpatient Medications Acetaminophen (Acetaminophen 500 Mg Tab) 500 mg PO Q6H PRN PRN Reason: fever/pain Stop: 10/30/24 22:12 Last Admin: 10/02/24 11:22 Dose: 500 mg Artificial Tears (Artificial Tears) 1 drops OP Q4H PRN PRN Reason: Dry Eye(S) Stop: 10/30/24 22:29 Doxycycline Hyclate (Doxycycline Hyclate 100 Mg Cap) 100 mg PO BID [facility] Stop: 10/08/24 08:59 Last Admin: 10/03/24 08:52 Dose: 100 mg Enoxaparin Sodium (Enoxaparin Inj 30 Mg/0.3 Ml Syr) 30 mg SQ QAM [facility] Stop: 10/31/24 08:59 Last Admin: 10/03/24 08:52 Dose: 30 mg Hydroxyzine HCl (Hydroxyzine Hcl 10 Mg Tab) 20 mg PO HS [facility] Stop: 10/30/24 22:19 Last Admin: 10/02/24 20:29 Dose: 20 mg Hydroxyzine HCl (Hydroxyzine Hcl 10 Mg Tab) 10 mg PO BID@1100,1700 [facility] Stop: 10/31/24 10:59 Last Admin: 10/03/24 12:02 Dose: 10 mg Promethazine HCl (Phenergan) 6.25 mg in 50.25 mls @ 201 mls/hr IV Q6H PRN PRN Reason: Nausea And Vomiting Stop: 10/30/24 22:15 Ceftriaxone Sodium (Rocephin) 1,000 mg in 50 mls @ 100 mls/hr IV Q24H [facility] Stop: 10/08/24 17:59 Last Infusion: 10/02/24 18:05 Dose: Infused Lamotrigine (Lamotrigine 100 Mg Tab) 200 mg PO HS [facility]; Protocol Stop: 10/30/24 22:19 Last Admin: 10/02/24 20:29 Dose: 200 mg Levothyroxine Sodium (Levothyroxine Sodium 75 Mcg Tablet) 75 mcg PO DAILYBB [facility] Stop: 10/31/24 06:29 Last Admin: 10/03/24 06:30 Dose: 75 mcg Melatonin (Melatonin 3 Mg Tab) 3 mg PO HSZ PRN PRN Reason: Insomnia Stop: 10/30/24 22:30 Metoprolol Succinate (Metoprolol Succ 25mg Ext Rel Tab) 25 mg PO BID [facility] Stop: 11/01/24 20:59 Last Admin: 10/03/24 08:53 Dose: 25 mg Metoprolol Tartrate (Metoprolol Tartrate 1 Mg/Ml Vial) 5 mg IV Q6 PRN PRN Reason: Tachycardia HR>120 Stop: 11/02/24 00:00 Multivitamins (Multivitamin Tab) 1 tab PO DAILY [facility] Stop: 10/31/24 08:59 Last Admin: 10/03/24 08:52 Dose: 1 tab Oxybutynin Chloride (Oxybutynin Chloride 5 Mg Tab) 2.5 mg PO BID [facility] Stop: 10/31/24 08:59 Last Admin: 10/03/24 08:52 Dose: 2.5 mg Pantoprazole Sodium (Pantoprazole 40 Mg Tab) 40 mg PO DAILYBB [facility] Stop: 10/31/24 06:29 Last Admin: 10/03/24 06:30 Dose: 40 mg Paroxetine HCl (Paroxetine Hcl 10 Mg Tab) 30 mg PO HS [facility] Stop: 10/30/24 22:19 Last Admin: 10/02/24 20:28 Dose: 30 mg Tramadol HCl (Tramadol Hcl 50 Mg Tablet) 25 - 50 mg PO Q4H PRN PRN Reason: Pain Stop: 10/30/24 22:15 Last Admin: 10/02/24 06:06 Dose: 50 mg
[2024-10-04 07:58] LABS: Basophils # (auto) 0.01 K/uL (0.00-0.20); Basophils % (auto) 0.1 %; Eosinophils # (auto) 0.03 K/uL (0.00-0.50); Eosinophils % (auto) 0.4 %; Hematocrit (blood only) 38.7 % (37.0-47.0); Hemoglobin 12.4 g/dl (12.0-16.0); Immature Granulocytes # (auto) 0.02 K/uL (0.01-0.20); Immature Granulocytes % (auto) 0.2 %; Lymphocytes # (auto) 1.06 K/uL (1.20-3.40); Mean Corpuscular Hemoglobin 29.7 pg (25.0-34.0); Mean Corpuscular Volume 92.8 fL (80.0-100.0); Monocytes # (auto) 0.54 K/uL (0.11-0.59); Monocytes % (auto) 6.6 %; Neutrophils # (auto) 6.48 K/uL (1.40-6.50); Neutrophils % (auto) 79.7 %; Platelet Count 336 K/uL (130-400); RDW Coefficient of Variation 12.8 % (11.5-14.5); RDW Standard Deviation 43.9 fL (36.4-46.3); Red Blood Count 4.17 M/uL (4.20-5.40); White Blood Count 8.14 K/ul (4.8-10.8)
[2024-10-04 08:16] LABS: BUN Creatinine Ratio 34.4 (10-20); Calcium 9.7 mg/dl (8.6-10.3); Creatinine Clr Calc Pharmacy 34.1 ml/min; Magnesium 2.1 mg/dl (1.7-2.4); Potassium 4.2 mmol/L (3.5-5.1)
--- NOTE | 2024-10-04 10:08 | Hospitalist Progress Note ---
Date of Service October 04, 2024 Assessment & Plan (1) Decompensated heart failure: Plan: Cardiology is on board [facility] one-time except acute diastolic heart failure Moderate aortic stenosis Likely multifactorial secondary to A-fib RVR, valvular heart disease --Imaging studies suggestive of developing pulmonary edema --ECHO: No regional wall motion abnormality. Moderate concentric LVH. EF greater than 70%. Moderate aortic stenosis. Mild mitral stenosis. Echo unchanged from prior --Received IV Lasix --Monitor I's and O's, daily weight, volume status --Cardiology on board Saturating well on room air Additional diuretics as needed Appears euvolemic today Remains clinically stable without any cardiac symptoms of palpitation or shortness of breath or any chest pain Smaller dose of furosemide will be given on discharge as per lab intern A-fib RVR--POA H/O paroxysmal A-fib Not on chronic anticoagulation Currently in sinus Continue metoprolol Remains in sinus rhythm with rate controlled at 69 Will continue the current medications B/L LE Cellulitis H/O stasis dermatitis Continue Rocephin, doxycycline Continue current management Bilateral skin changes in the legs likely chronic with redness doubt any infection Will finish the course of antibiotic Will give oral doxycycline to finish the course Elevated D-dimer --CTA showed no signs of PE --Venous Doppler: showed no DVT Elevated troponin Likely demand ischemia secondary to CHF, A-fib Echo showed no wall motion abnormality Patient denies any chest pain Right knee effusion Due to osteoarthritis --Knee X ray:Increased lateral joint space degenerative changes. Suprapatellar joint effusion. -- Orthopedics consulted PT OT, fall precautions Orthopedics plans to try cortisone injection of right knee Poor surgical candidate per orthopedics Status post right knee injection with steroid and she has been feeling much better following the injection Recent right hip fracture S/P S/P right hip intramedullary nailing Reports intermittent right hip pain --R femur CT:Interval comminuted intertrochanteric fracture of the right hip with incomplete healing of the presence of a femoral head and neck compression screw and proximal femoral intramedullary anai. No acute fracture. No dislocation. Degenerative changes of the right knee including increased lateral joint space degenerative changes and a suprapatellar joint effusion. -- Fall precautions, PT OT Orthopedics on board Likely to need rehab placement Right Upper Extremity Weakness/Wrist Pain Likely due to cervical spine stenosis --Cervical Spine MRI:Moderate spondylosis of the cervical spine with mutlilevel degenerative disc lesions as described above more pronounced in C4-5, C5-6 and C6-C7 vertebral level causing moderate spinal canal stenosis along with neural foraminal narrowing resulting in compression over existing nerve roots --R wrist x-ray:No acute fracture or dislocation. --Appreciate orthopedic spine input Poor surgical candidate Continue PT OT Needs follow-up with orthopedics spine on discharge May need nerve conduction study as outpatient Denies any more wrist pain Bilateral groin lymphadenopathy Incidental finding on venous Doppler Doppler showed:Prominent lymph nodes are seen in bilateral groin region, largest on the right measuring 1.7 x 0.8 x 1.4 cm and largest on the left measuring 2.1 x 0.9 x 1.6 cm. 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 Monitor Mood disorder Continue home medications DVT Px: Lovenox SQ CODE STATUS Full code [facility] Admission and Anticipated Discharge Date Admission Date: September 30, 2024 Subjective 10/03/2024 The patient was seen and examined in telemetry unit She has multitude of complaints including glaucoma, osteoarthritis, poor circulation in the legs neuropathy which are all stable Also complained to have sudden pain involving the right upper extremity Denies any chest pain and/or palpitation 10/04/2024 The patient was seen and examined in telemetry unit She has been stable and denies any significant symptoms Her knee pain in the right wrist pain are controlled Denies any shortness of breath, palpitation Cellulitis/dermatitis of the legs for improved [facility] Review of Systems Review of Systems: All systems reviewed and are unremarkable except as noted below Physical Exam Physical Exam: Lying in bed without any acute distress Constitutional: + ill appearing and average body habitus Eyes: PERRL, conjunctivae normal, anicteric sclerae ENMT: external ear and nose normal, oropharynx normal Neck: trachea midline, no thyromegaly Respiratory: no respiratory distress Auscultation: lungs clear to auscultation bilaterally Cardiovascular: Rate/Rhythm: regular rate and regular rhythm; not tachycardic Heart Sounds: normal S1, normal S2 and + murmur Extremities: no edema Gastrointestinal (Abdomen): Inspection/Auscultation: normal bowel sounds; abdomen not distended Percussion/Palpation: abdomen soft; abdomen nontender Skin: bilateral stasis dermatitis of the legs Neurologic: normal touch/pain/proprioception and moves all extremities; no focal motor deficits Lymphatic: no cervical or axillary lymphadenopathy Results & Data Results & Data Vital Signs (Past 12 Hours) Vital Signs Temp Pulse Resp BP BP Pulse Ox Pulse Ox 10/04/24 07:53 36.9 C 61 18 151/66 H 98 10/04/24 03:10 36.9 C 65 18 135/67 95 10/04/24 00:00 97 10/03/24 22:36 36.7 C 66 18 155/72 H 97 O2 Del Method O2 Del Method 10/04/24 07:53 Room Air 10/04/24 03:10 Room Air 10/04/24 00:00 Room Air 10/03/24 22:36 Room Air Laboratory Results Short CBC 10/04/24 Range/Units 07:23 WBC 8.14 (4.8-10.8) K/ul Hgb 12.4 (12.0-16.0) g/dl Hct 38.7 (37.0-47.0) % Plt Count 336 (130-400) K/uL BMP 10/04/24 07:23 Sodium 137 Potassium 4.2 Chloride 101 Carbon Dioxide 29 BUN 33 H Creatinine 0.96 Glucose 141 H Calcium 9.7 Medications Administered Current Inpatient Medications Acetaminophen (Acetaminophen 500 Mg Tab) 500 mg PO Q6H PRN PRN Reason: fever/pain Stop: 10/30/24 22:12 Last Admin: 10/02/24 11:22 Dose: 500 mg Artificial Tears (Artificial Tears) 1 drops OP Q4H PRN PRN Reason: Dry Eye(S) Stop: 10/30/24 22:29 Doxycycline Hyclate (Doxycycline Hyclate 100 Mg Cap) 100 mg PO BID [facility] Stop: 10/08/24 08:59 Last Admin: 10/04/24 08:31 Dose: 100 mg Enoxaparin Sodium (Enoxaparin Inj 30 Mg/0.3 Ml Syr) 30 mg SQ QAM [facility] Stop: 10/31/24 08:59 Last Admin: 10/04/24 08:30 Dose: 30 mg Hydroxyzine HCl (Hydroxyzine Hcl 10 Mg Tab) 20 mg PO HS [facility] Stop: 10/30/24 22:19 Last Admin: 10/03/24 22:00 Dose: 20 mg Hydroxyzine HCl (Hydroxyzine Hcl 10 Mg Tab) 10 mg PO BID@1100,1700 [facility] Stop: 10/31/24 10:59 Last Admin: 10/03/24 17:31 Dose: 10 mg Promethazine HCl (Phenergan) 6.25 mg in 50.25 mls @ 201 mls/hr IV Q6H PRN PRN Reason: Nausea And Vomiting Stop: 10/30/24 22:15 Ceftriaxone Sodium (Rocephin) 1,000 mg in 50 mls @ 100 mls/hr IV Q24H [facility] Stop: 10/08/24 17:59 Last Infusion: 10/03/24 18:07 Dose: Infused Lamotrigine (Lamotrigine 100 Mg Tab) 200 mg PO HS [facility]; Protocol Stop: 10/30/24 22:19 Last Admin: 10/03/24 22:00 Dose: 200 mg Levothyroxine Sodium (Levothyroxine Sodium 75 Mcg Tablet) 75 mcg PO DAILYBB [facility] Stop: 10/31/24 06:29 Last Admin: 10/04/24 06:31 Dose: 75 mcg Melatonin (Melatonin 3 Mg Tab) 3 mg PO HSZ PRN PRN Reason: Insomnia Stop: 10/30/24 22:30 Metoprolol Succinate (Metoprolol Succ 25mg Ext Rel Tab) 25 mg PO BID [facility] Stop: 11/01/24 20:59 Last Admin: 10/04/24 08:31 Dose: 25 mg Metoprolol Tartrate (Metoprolol Tartrate 1 Mg/Ml Vial) 5 mg IV Q6 PRN PRN Reason: Tachycardia HR>120 Stop: 11/02/24 00:00 Multivitamins (Multivitamin Tab) 1 tab PO DAILY [facility] Stop: 10/31/24 08:59 Last Admin: 10/04/24 08:31 Dose: 1 tab Oxybutynin Chloride (Oxybutynin Chloride 5 Mg Tab) 2.5 mg PO BID [facility] Stop: 10/31/24 08:59 Last Admin: 10/04/24 08:31 Dose: 2.5 mg Pantoprazole Sodium (Pantoprazole 40 Mg Tab) 40 mg PO DAILYBB [facility] Stop: 10/31/24 06:29 Last Admin: 10/04/24 06:31 Dose: 40 mg Paroxetine HCl (Paroxetine Hcl 10 Mg Tab) 30 mg PO HS [facility] Stop: 10/30/24 22:19 Last Admin: 10/03/24 22:00 Dose: 30 mg Tramadol HCl (Tramadol Hcl 50 Mg Tablet) 25 - 50 mg PO Q4H PRN PRN Reason: Pain Stop: 10/30/24 22:15 Last Admin: 10/02/24 06:06 Dose: 50 mg
[2024-10-04 11:46] VITALS: PULSE 123; TEMP 98.6
[2024-10-04 14:45] VITALS: BP 155/72; O2SAT 90
--- NOTE | 2024-10-05 09:10 | Discharge Summary ---
Date of Service October 05, 2024 Admission HPI Per Admitting Provider History obtained from patient and records. Medical history significant for chronic diastolic heart failure (EF 65 to 69%, TTE 2023), PAF, severe , hypothyroidism, NAFLD, chronic tremors, chronic LE venous stasis as per records, mood disorder. Last [facility] confinement December, for bilateral LE cellulitis Patient discharged on Keflex course. Patient confined at [facility] last February 2024 following [facility] ER transfer for traumatic intertrochanteric right femoral fracture status post intramedullary anai placement. Patient contracted COVID-19 illness post procedure. Subsequently discharged to rehab before transitioning home. Last week, patient noted recurrent bilateral LE swelling and redness without fever or chills. Achy right knee and right upper leg pain. No fever, no chills. Intermittent substernal chest pain/SOB at home. No unusual cough symptoms. Few days ago, patient noted right hand weakness with some right neck pain. No recollection of trauma. No incontinence symptoms or leg weakness. Ceftriaxone and Solu-Medrol administered at the ER. 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 Admission Exam Per Admitting Provider Physical Exam: GENERAL: Comfortable, pleasant, no respiratory distress SKIN: Normal color, warm HEENT: [place] palpebral conjunctivae, no ptosis, moist buccal mucosa NECK : Supple, minimal cervical tenderness right CHEST : CTA, no tenderness HEART : RRR, systolic murmur ABDOMEN: Some distention, nontender EXTREMITIES : Right hip tenderness, right knee tenderness, bilateral LE erythema with some tenderness NEUROLOGIC : Coherent, no facial asymmetry, MMTs BUE/BLE 4/5 with subtle weakness right hand cardiology consultant, gait and stance not assessed Principal Diagnosis Decompensated heart failure, A-fib with RVR, bilateral leg cellulitis/chronic dermatitis, right knee pain status post injection Discharge Exam Lying in bed without any acute distress Constitutional + ill appearing and average body habitus Eyes PERRL, conjunctivae normal, anicteric sclerae ENMT external ear and nose normal, oropharynx normal Neck trachea midline, no thyromegaly Respiratory no respiratory distress Auscultation: lungs clear to auscultation bilaterally Cardiovascular Rate/Rhythm: regular rate and regular rhythm; not tachycardic Heart Sounds: normal S1, normal S2 and + murmur Extremities: no edema Gastrointestinal (Abdomen) Inspection/Auscultation: normal bowel sounds; abdomen not distended Percussion/Palpation: abdomen soft; abdomen nontender Neurologic normal touch/pain/proprioception and moves all extremities; no focal motor deficits Lymphatic no cervical or axillary lymphadenopathy Discharge Data Allergies Allergy/AdvReac Type Severity Reaction Status Date / Time No Known Allergies Allergy Verified 09/30/24 18:34 Consultations 09/30/24 21:14 ED Decision to Admit Stat 09/30/24 22:58 Consult Cardiology Routine 10/01/24 03:22 Consult Orthopedic Surgery Routine 10/01/24 07:42 Consult Orthopedic Spine Surgery Routine Ordered Studies 09/30/24 15:44 CT angio head w con Stat CT angio neck with con Stat CT cervical spine wo con Stat CT head/brain wo con Stat 09/30/24 22:13 CT Abd and Pelvis [CT abd pelvis wo con] Stat 09/30/24 22:14 CT femur RT wo con Stat 10/01/24 00:14 MR cervical spine wo con Routine 10/01/24 00:17 US venous doppler LE BI Stat 10/01/24 05:00 CT angio chest PE protocol Urgent Hospital Course (1) Decompensated heart failure: Cardiology is on board Henry Andino one-time except acute diastolic heart failure Moderate aortic stenosis Likely multifactorial secondary to A-fib RVR, valvular heart disease --Imaging studies suggestive of developing pulmonary edema --ECHO: No regional wall motion abnormality. Moderate concentric LVH. EF greater than 70%. Moderate aortic stenosis. Mild mitral stenosis. Echo unchanged from prior --Received IV Lasix --Monitor I's and O's, daily weight, volume status --Cardiology on board Saturating well on room air Additional diuretics as needed Appears euvolemic today Remains clinically stable without any cardiac symptoms of palpitation or shortness of breath or any chest pain Smaller dose of furosemide will be given on discharge as per supervisor lens generating A-fib RVR--POA H/O paroxysmal A-fib Not on chronic anticoagulation Currently in sinus Continue metoprolol Remains in sinus rhythm with rate controlled at 69 Will continue the current medications B/L LE Cellulitis H/O stasis dermatitis Continue Rocephin, doxycycline Continue current management Bilateral skin changes in the legs likely chronic with redness doubt any infection Will finish the course of antibiotic Will give oral doxycycline to finish the course Elevated D-dimer --CTA showed no signs of PE --Venous Doppler: showed no DVT Elevated troponin Likely demand ischemia secondary to CHF, A-fib Echo showed no wall motion abnormality Patient denies any chest pain Right knee effusion Due to osteoarthritis --Knee X ray:Increased lateral joint space degenerative changes. Suprapatellar joint effusion. -- Orthopedics consulted PT OT, fall precautions Orthopedics plans to try cortisone injection of right knee Poor surgical candidate per orthopedics Status post right knee injection with steroid and she has been feeling much better following the injection Recent right hip fracture S/P S/P right hip intramedullary nailing Reports intermittent right hip pain --R femur CT:Interval comminuted intertrochanteric fracture of the right hip with incomplete healing of the presence of a femoral head and neck compression screw and proximal femoral intramedullary anai. No acute fracture. No dislocation. Degenerative changes of the right knee including increased lateral joint space degenerative changes and a suprapatellar joint effusion. -- Fall precautions, PT OT Orthopedics on board Likely to need rehab placement Right Upper Extremity Weakness/Wrist Pain Likely due to cervical spine stenosis --Cervical Spine MRI:Moderate spondylosis of the cervical spine with mutlilevel degenerative disc lesions as described above more pronounced in C4-5, C5-6 and C6-C7 vertebral level causing moderate spinal canal stenosis along with neural foraminal narrowing resulting in compression over existing nerve roots --R wrist x-ray:No acute fracture or dislocation. --Appreciate orthopedic spine input Poor surgical candidate Continue PT OT Needs follow-up with orthopedics spine on discharge May need nerve conduction study as outpatient Denies any more wrist pain Bilateral groin lymphadenopathy Incidental finding on venous Doppler Doppler showed:Prominent lymph nodes are seen in bilateral groin region, largest on the right measuring 1.7 x 0.8 x 1.4 cm and largest on the left measuring 2.1 x 0.9 x 1.6 cm. 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 with [facility] [employer] Monitor Mood disorder Continue home medications DVT Px: Lovenox SQ CODE STATUS Full code Disposition Will be discharged to [facility] this afternoon Total Time Total Time Spent Total Time Spent (In Minutes): 40 minutes Discharge Plan Discharge Items Patient Disposition: Transfer Inpatient Rehab Fac Reason For Visit: CHF Discharge Diagnosis: Decompensated heart failure, A-fib with RVR, bilateral leg cellulitis/chronic dermatitis, right knee pain status post injection Condition on Discharge: Fair Activity: As commented below Activity Comment: Will need continued PT and OT Non-emergency contact: Primary Care Provider Call non-emergency contact if: you have any medication questions and your symptoms worsen Follow-up/Referrals: Jeannette Lo MD [Primary Care Provider] - (Please make an appointment with your PCP within 7 days following discharge from the facility) Diet: Heart Healthy Fluids: 2000ml (8 cups) Addtl Attending Provider Instructions: Please take precaution to avoid falls Continue to have PT and OT Take your medications as advised Please keep appointments with the healthcare providers Stand-Alone Forms: My [facility] [employer] Skilled Items Patient informed of condition?: Yes DNR: No Discharge Level of Care: Acute rehab Communicable Disease: No Discharge Prognosis: Stable Lines: None Urinary Catheter: No Medications and DC Order Prescriptions: New doxycycline hyclate 100 mg Capsule 100 mg PO BID Qty: 12 0RF furosemide [Lasix] 20 mg tablet 20 mg PO Q OTHER DAY Qty: 30 0RF Continued hydroxyzine HCl 10 mg Tablet 10 - 20 mg PO DIRECTED PRN (Reason: Anxiety/Mood) multivitamin Tablet 1 tab PO DAILY lamotrigine 200 mg tablet 200 mg PO HS omeprazole 40 mg capsule,delayed release(DR/EC) 40 mg PO DAILYBB levothyroxine 75 mcg tablet 75 mcg PO DAILY paroxetine HCl 30 mg tablet 30 mg PO HS simethicone 125 mg Tablet,Chewable 125 mg PO QID PRN (Reason: .gas) oxybutynin chloride 5 mg tablet 2.5 mg PO BID hydroxyzine HCl 10 mg tablet 10 mg PO BID Rx Instructions: Give 1100 & 1700 hydroxyzine HCl 10 mg tablet 20 mg PO HS Rx Instructions: 2300 Systane Gel 0.3 % Gel 1 drp OPB Q4H PRN (Reason: Dry Eye(S)) PreserVision AREDS-2 250-90-40-1 mg Capsule 1 tab PO BID loperamide [Imodium A-D] 2 mg Capsule 2 - 4 mg PO .SEEASDIRECTED Rx Instructions: TAKE 4MG BY MOUTH AFTER 1ST LOOSE STOOL, THEN 2MG AFTER ADDITION LOOSE STOOL. MAX 16MG DAILY calcium carbonate [Calcium Antacid] 200 mg calcium (500 mg) Tablet,Chewable 1,000 mg PO QID PRN (Reason: Heartburn) acetaminophen 500 mg Capsule 500 mg PO Q8H PRN (Reason: Pain) Rx Instructions: *MAX 3 GRAMS OF APAP IN 24 HRS calcium carbonate-vitamin D3 [Oyster Shell Calcium-Vit D3] 500 mg-5 mcg (200 unit) Tablet 1 tab PO DAILY melatonin 3 mg Tablet,Disintegrating 3 mg PO HS PRN (Reason: Insomnia) Changed tramadol 50 mg tablet 25 mg PO TID PRN (Reason: LEG PAIN) Qty: 0 0RF metoprolol succinate 25 mg tablet extended release 24 hr 25 mg PO BID Qty: 0 0RF Discontinued naproxen sodium 220 mg Tablet 220 mg PO BID PRN (Reason: Pain) Discharge Orders: Discharge Order (Routine); Ordered 10/04/24 Ordered By: Bernice Darling Admission Data Admit Date/Time: 09/30/24 22:11 Attending Provider: Bernice Darling Admit Provider: Chapito Dubois Primary Care Provider: Jeannette Lo Other Providers: Chapito Dubois; Destin Neri Gregory M; Bill Yoon; Foster Viramontes; Henry Andino; Jose Rafael Bass; Pernell Couch; Bobo Katz Jr; Troy Reveles; Delores Lee; Jaclyn Yeboah; Jeffrey Copeland; Jeffrey Crocker; Camilo Cisse; Marsha Wiggins; Dion Almeida; Meghna Michael; Liu Coles; Dion White; Bradley Connors; Crow Mueller; Mitch Anthony; [facility] Other Interventions: Discharge Summary Assessment (RN) Last Done: 10/04/24 14:43
== END 2024-10-04 17:19 | DRG 292 ==
LOC: ED 15:19 → SUATTDRO 22:11 → 4W 22:11

== ENCOUNTER 2025-07-17 16:30 | Inpatient (IN) ==
--- NOTE | 2025-07-17 16:38 | Emergency Department Note ---
Impression & Plan Acute UTI Admission ED Provider Note HPI: History obtained from bedside RN via report. The patient is a 84-year-old female with reported history of dementia, atrial fibrillation on Eliquis, who presents the emergency department with chief complaint of increasing confusion and concern for UTI. Patient is alert on arrival but not able to provide me with much history. Per report the patient has had some increasing confusion and generalized weakness at her nursing facility and therefore was sent in for evaluation for possible urinary tract infection/sepsis. On arrival here to the ED the patient is tachycardic in the 120s consistent with atrial fibrillation with RVR on the monitor. Blood pressure stable at 108/73, patient saturating well on room air on arrival. ROS: - Per HPI Differential Diagnosis: Sepsis, urinary tract infection, metabolic encephalopathy, atrial fibrillation with RVR, amongst other potential pathologies. *Outpatient medications and allergy history reviewed. PE: General: Alert to verbal stimuli HEENT: Normocephalic, trachea midline Eyes: Extraocular eye movement is intact, no scleral erythema Pulmonary: Clear to auscultation bilaterally, no wheezing Cardio: Tachycardic rate with irregular rhythm GI: Abdomen is soft to palpation : No suprapubic tenderness MSK: No evidence of trauma or malformation of the extremities, no edema Skin: No evidence of rash Neuro: Alert, no focal deficits Psychiatric: Cooperative INDEPENDENT INTERPRETATIONS: surveillance monitor: (As interpreted by myself): - An order was placed for continuous cardiac monitoring - Patient was noted to be in atrial fibrillation with a rate of 123 EKG: (As interpreted by myself): Rate: 115 Rhythm: Atrial fibrillation with RVR Intervals: Within normal limits ST changes: No ST elevation Time: 1638 Chest x-ray: (As interpreted by myself): No focal infiltrate Interventions provided in ED: - IV fluid bolus, IV cefepime Medical Decision Making: IV was established and lab work obtained, patient was placed on surveillance monitor. Patient was IV fluid resuscitated shortly after arrival over concern for sepsis secondary to likely UTI per report. Lab work shows a leukocytosis of 19.58, hemoglobin is normal, platelet count is normal, CMP does not show any evidence of any critical findings, renal function appears to be intact. Troponin is negative. Procalcitonin is within normal limits at 0.48, urinalysis is consistent with likely infection, 2+ leukocyte esterase with significant pyuria, will send for culture. There is 3+ bacteria and also some evidence of contamination. Patient blood pressure improved with IV fluid resuscitation greater than 30 cc/kg. Lactic acid was initially elevated 3.0 but down trended to within normal limits on recheck following IV fluid resuscitation. I discussed the patient's presentation with the on-call hospitalist, Dr. Dela Cruz, and the patient was placed for admission in stable condition for further management. Blood pressure prior to admission on my recheck is 116 systolic, patient appears alert, she has good capillary refill less than 2 seconds in the bilateral upper extremities prior to admission. Consultants/Discussions held with other healthcare providers: - Hospitalist, Dr. Dela Cruz Diagnosis: 1. Urinary tract infection, acute 2. Encephalopathy, acute, mild 3. Lactic acidosis, acute 4. Leukocytosis, acute Disposition: Admission Miguel Angel Woo DO Emergency Medicine Past Med/Surg History Problem List (Updated 07/17/25 @ 22:07 by Miguel Angel Woo DO) Acute UTI (Acute) Sepsis Cervical strain, acute Chronic heart failure with preserved ejection fraction Venous stasis dermatitis of both lower extremities Syncope, cardiogenic Laceration of scalp (Acute) Atrial fibrillation with rapid ventricular response (Acute) Fall from standing (Acute) Cholelithiasis Bilateral lower leg cellulitis (Acute) Aortic stenosis Depression with anxiety Sensory polyneuropathy Essential tremor Fracture, thoracic vertebra (Acute) COVID-19 virus infection Paroxysmal atrial fibrillation with RVR (Acute) Postherpetic neuralgia (Chronic) Medical History HTN (hypertension) Osteoarthritis of right knee Stasis dermatitis Elevated liver enzymes Degenerative arthritis Anxiety Surgical History History of hip surgery 02/2024 - right femur fracture s/p intermedullary ania S/P cataract surgery Family History Father , age 76 of metastatic prostate cancer Cancer Prostate cancer Heart disease Mother , age 93 Rheumatoid arthritis Social History Smoking Status: Unknown if ever smoked Second Hand Exposure: No; Do You Dip or Chew Tobacco: No; Hx Alcohol Use: No Hx Substance Use: No Preferred Language: Albanian Communication Ability: Effective Security Trainer Required: No Beliefs That Will Affect Care: None marital status: Single Current Living Situation: Alone Current Living Situation Comment: [facility] current occupational status: retired 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57 How many Children do You have: 0 Feels Safe at Home: Yes Assistive Devices: Wheelchair Allergies Allergies Allergy/AdvReac Type Severity Reaction Status Date / Time No Known Allergies Allergy Verified 07/17/25 19:11 Home Meds Home Medications Medication Instructions Recorded Confirmed hydroxyzine HCl 10 mg tablet 10 mg PO BID 01/12/24 07/17/25 hydroxyzine HCl 10 mg tablet 20 mg PO HS 01/12/24 07/17/25 lamotrigine 200 mg tablet 200 mg PO HS 01/12/24 07/17/25 levothyroxine 75 mcg tablet 75 mcg PO DAILY 01/12/24 07/17/25 omeprazole 40 mg capsule,delayed 40 mg PO DAILYBB 01/12/24 07/17/25 release oxybutynin chloride 5 mg tablet 2.5 mg PO BID 01/12/24 07/17/25 paroxetine HCl 30 mg tablet 30 mg PO HS 01/12/24 07/17/25 vit C 250 mg-vit E 90 mg-zinc 40 1 tab PO BID 01/12/24 07/17/25 mg-copper 1 [id number] capsule (PreserVision AREDS-2) hydroxyzine HCl 10 mg tablet 10 - 20 mg PO DIRECTED PRN 01/13/24 07/17/25 Anxiety/Mood loperamide 2 mg capsule (Imodium 2 - 4 mg PO DIRECTED 09/30/24 07/17/25 A-D) melatonin 3 mg disintegrating 3 mg PO HS PRN Insomnia 09/30/24 07/17/25 tablet multivitamin (Daily-Priscila tablet) 1 tab PO DAILY 03/15/25 07/17/25 calcium 500 mg (as 1 tab PO DAILY 04/30/25 07/17/25 carbonate)-vitamin D3 5 mcg (200 unit) tablet (Oyster Shell Calcium-Vitamin D3) metoprolol succinate 100 mg 100 mg PO QAM 04/30/25 07/17/25 tablet,extended release 24 hr naproxen sodium 220 mg tablet 220 mg PO BID PRN Pain 07/17/25 07/17/25 Previous Rx's Medication Instructions Recorded furosemide 20 mg tablet (Lasix) 20 mg PO Q OTHER DAY #30 tabs 10/04/24 apixaban 5 mg tablet (Eliquis) 5 mg PO BID #60 tabs 03/17/25 tramadol 50 mg tablet 50 mg PO BID PRN pain #11 tabs 05/22/25 Results & Data (ED) Vital Signs Vital Signs - 24 hr 07/17/25 16:18 07/17/25 16:51 07/17/25 16:52 Temperature 37.4 C Temperature Source Axillary Pulse Rate 126 H 124 H Pulse Rate [Apical] 120 H Pulse Rate from SpO2 Sensor Respiratory Rate 22 23 Respiratory Effort / Characteristics Non-Labored Respiratory Depth Normal Respiratory Pattern Regular Blood Pressure 108/73 Blood Pressure [Left Arm] 108/73 Blood Pressure Mean 84 Blood Pressure Mean [Left Arm] 84 Pulse Oximetry 96 93 Oxygen Delivery Method Room Air Sepsis Recent Fever Within 48 Hours No Sepsis New/Unexplained Change in Mental Status No Sepsis Action Taken by Nursing Physician Notified 07/17/25 17:05 07/17/25 17:05 07/17/25 17:06 Temperature Temperature Source Pulse Rate 117 H Pulse Rate [Apical] 109 H Pulse Rate from SpO2 Sensor Respiratory Rate 23 26 H Respiratory Effort / Characteristics Respiratory Depth Respiratory Pattern Blood Pressure 84/47 L Blood Pressure [Left Arm] 88/53 L Blood Pressure Mean 51 Blood Pressure Mean [Left Arm] 64 Pulse Oximetry 94 Oxygen Delivery Method Room Air Sepsis Recent Fever Within 48 Hours Sepsis New/Unexplained Change in Mental Status Sepsis Action Taken by Nursing 07/17/25 17:07 07/17/25 17:20 07/17/25 17:30 Temperature Temperature Source Pulse Rate 108 H 103 H Pulse Rate [Apical] Pulse Rate from SpO2 Sensor Respiratory Rate Respiratory Effort / Characteristics Respiratory Depth Respiratory Pattern Blood Pressure 88/53 L 89/55 L 79/45 L Blood Pressure [Left Arm] Blood Pressure Mean 65 58 57 Blood Pressure Mean [Left Arm] Pulse Oximetry Oxygen Delivery Method Sepsis Recent Fever Within 48 Hours Sepsis New/Unexplained Change in Mental Status Sepsis Action Taken by Nursing 07/17/25 17:32 07/17/25 17:34 07/17/25 17:36 Temperature Temperature Source Pulse Rate 116 H Pulse Rate [Apical] 108 H Pulse Rate from SpO2 Sensor Respiratory Rate 32 H Respiratory Effort / Characteristics Respiratory Depth Respiratory Pattern Blood Pressure 85/55 L 90/56 L Blood Pressure [Left Arm] 90/56 L Blood Pressure Mean 67 70 Blood Pressure Mean [Left Arm] 67 Pulse Oximetry 96 Oxygen Delivery Method Sepsis Recent Fever Within 48 Hours Sepsis New/Unexplained Change in Mental Status Sepsis Action Taken by Nursing 07/17/25 17:42 07/17/25 18:00 07/17/25 18:15 Temperature Temperature Source Pulse Rate 100 H 108 H 112 H Pulse Rate [Apical] Pulse Rate from SpO2 Sensor 105 H 101 H Respiratory Rate 28 H 28 H Respiratory Effort / Characteristics Respiratory Depth Respiratory Pattern Blood Pressure 88/54 L 96/56 L 88/53 L Blood Pressure [Left Arm] Blood Pressure Mean 65 69 64 Blood Pressure Mean [Left Arm] Pulse Oximetry 98 87 L Oxygen Delivery Method Sepsis Recent Fever Within 48 Hours Sepsis New/Unexplained Change in Mental Status Sepsis Action Taken by Nursing 07/17/25 18:45 07/17/25 19:15 07/17/25 19:30 Temperature Temperature Source Pulse Rate 115 H 109 H 115 H Pulse Rate [Apical] Pulse Rate from SpO2 Sensor Respiratory Rate 29 H 23 Respiratory Effort / Characteristics Respiratory Depth Respiratory Pattern Blood Pressure 116/77 87/61 L 109/65 Blood Pressure [Left Arm] Blood Pressure Mean 90 73 79 Blood Pressure Mean [Left Arm] Pulse Oximetry Oxygen Delivery Method Sepsis Recent Fever Within 48 Hours Sepsis New/Unexplained Change in Mental Status Sepsis Action Taken by Nursing 07/17/25 20:00 07/17/25 20:15 07/17/25 20:30 Temperature Temperature Source Pulse Rate 105 H 109 H Pulse Rate [Apical] Pulse Rate from SpO2 Sensor Respiratory Rate 36 H Respiratory Effort / Characteristics Respiratory Depth Respiratory Pattern Blood Pressure 96/77 L 126/80 146/102 H Blood Pressure [Left Arm] Blood Pressure Mean 81 95 118 Blood Pressure Mean [Left Arm] Pulse Oximetry Oxygen Delivery Method Sepsis Recent Fever Within 48 Hours Sepsis New/Unexplained Change in Mental Status Sepsis Action Taken by Nursing 07/17/25 20:30 07/17/25 20:45 07/17/25 20:51 Temperature Temperature Source Pulse Rate 120 H Pulse Rate [Apical] Pulse Rate from SpO2 Sensor Respiratory Rate Respiratory Effort / Characteristics Respiratory Depth Respiratory Pattern Blood Pressure 146/102 H 129/88 Blood Pressure [Left Arm] Blood Pressure Mean 118 90 Blood Pressure Mean [Left Arm] Pulse Oximetry Oxygen Delivery Method Sepsis Recent Fever Within 48 Hours Sepsis New/Unexplained Change in Mental Status Sepsis Action Taken by Nursing 07/17/25 20:54 07/17/25 21:30 07/17/25 21:48 Temperature Temperature Source Pulse Rate 109 H 117 H 123 H Pulse Rate [Apical] Pulse Rate from SpO2 Sensor Respiratory Rate 25 H 31 H Respiratory Effort / Characteristics Respiratory Depth Respiratory Pattern Blood Pressure 92/70 L 110/68 Blood Pressure [Left Arm] Blood Pressure Mean 77 82 Blood Pressure Mean [Left Arm] Pulse Oximetry Oxygen Delivery Method Sepsis Recent Fever Within 48 Hours Sepsis New/Unexplained Change in Mental Status Sepsis Action Taken by Nursing 07/17/25 21:54 Temperature Temperature Source Pulse Rate Pulse Rate [Apical] Pulse Rate from SpO2 Sensor Respiratory Rate 24 Respiratory Effort / Characteristics Respiratory Depth Respiratory Pattern Blood Pressure Blood Pressure [Left Arm] Blood Pressure Mean Blood Pressure Mean [Left Arm] Pulse Oximetry 94 Oxygen Delivery Method Room Air Sepsis Recent Fever Within 48 Hours Sepsis New/Unexplained Change in Mental Status Sepsis Action Taken by Nursing Laboratory Data 07/17/25 17:00 07/17/25 17:00 Lab Results 07/17/25 07/17/25 07/17/25 Range/Units 16:32 17:00 17:05 WBC 19.58 H (4.8-10.8) K/ul RBC 4.27 (4.20-5.40) M/uL Hgb 12.0 (12.0-16.0) g/dl POC Hgb 13.3 (12.0-16.0) g/dl Hct 37.7 (37.0-47.0) % POC Hct 39 (37-47) % MCV 88.3 (80.0-100.0) fL MCH 28.1 (25.0-34.0) pg MCHC 31.8 L (32.0-36.0) g/dL RDW Std Deviation 47.7 H (36.4-46.3) fL RDW Coeff of Benita 14.7 H (11.5-14.5) % Plt Count 253 (130-400) K/uL MPV 8.6 L (9.4-12.4) fL Immature Gran % (Auto) 0.9 % Neut % (Auto) 89.1 % Lymph % (Auto) 2.5 % [place] % (Auto) 7.3 % Eos % (Auto) 0.0 % Baso % (Auto) 0.2 % Neut # (Auto) 17.47 H (1.40-6.50) K/uL Lymph # (Auto) 0.48 L (1.20-3.40) K/uL [place] # (Auto) 1.42 H (0.11-0.59) K/uL Eos # (Auto) 0.00 (0.00-0.50) K/uL Baso # (Auto) 0.03 (0.00-0.20) K/uL Immature Gran # (Auto) 0.18 (0.01-0.20) K/uL POC Sodium 134 L (135-144) mmol/L Sodium 132 L (136-145) mmol/L POC Potassium 4.2 (3.3-5.0) mmol/L Potassium 4.3 (3.5-5.1) mmol/L POC Chloride 97 L (101-112) mmol/L Chloride 99 (98-107) mmol/L Carbon Dioxide 27 (21-32) mmol/L POC Total CO2 25 (24-31) mmol/L Anion Gap 6 (3-11) POC Anion Gap 18.0 (16-25) mmol/L POC BUN 19 H (7-18) mg/dl BUN 18 (6-23) mg/dl Creatinine 1.00 (0.6-1.2) mg/dl POC Creatinine 1.1 (0.6-1.3) mg/dl Est Cr Clr Drug Dosing 33.7 ml/min eGFR 55.90 BUN/Creatinine Ratio 18.0 (10-20) Glucose 200 H (70-99(Fasting)) mg/dl POC Glucose (other) 201 H (70-99) mg/dl Lactate 3.0 H* (0.4-2.0) mmol/L Calcium 9.1 (8.6-10.3) mg/dl POC Ioniz Calcium Clint 1.17 (1.12-1.32) mmol/l Magnesium 1.8 (1.7-2.4) mg/dl Total Bilirubin 1.4 H (0.2-1.0) mg/dl Direct Bilirubin 0.5 H (0-0.2) mg/dl AST 56 H (13-39) U/L ALT 34 (7-52) U/L Alkaline Phosphatase 209 H (34-104) U/L Troponin I High Sens 12.4 (0-14) pg/ml Total Protein 7.2 (6.0-8.3) gm/dl Albumin 3.6 (3.4-5.0) gm/dl Procalcitonin 0.48 (0-0.5) ng/ml Urine Color Dark Yellow Urine Appearance Turbid A (Clear) Urine pH 5.5 (4.5-7.5) Ur Specific [place] 1.027 (1.000-1.030) Urine Protein 2+ H (Negative) Urine Glucose (UA) 1+ H (Negative) Urine Ketones Trace H (Negative) Urine Blood Negative (Negative) Urine Nitrite Negative (Negative) Urine Bilirubin 1+ H (Negative) Urine Urobilinogen Negative (Negative) Ur Leukocyte Esterase 2+ H (Negative) Urine WBC (Auto) >50 H (0-5) /hpf Urine RBC (Auto) 3-5 H (0-2) /hpf U Hyaline Cast (Auto) 11-20 H (0-2) /lpf U Epithel Cells (Auto) >20 H (0-2) /hpf Urine Bacteria (Auto) 3+ H (None Seen) Urine Comment 07/17/25 Range/Units 18:55 WBC (4.8-10.8) K/ul RBC (4.20-5.40) M/uL Hgb (12.0-16.0) g/dl POC Hgb (12.0-16.0) g/dl Hct (37.0-47.0) % POC Hct (37-47) % MCV (80.0-100.0) fL MCH (25.0-34.0) pg MCHC (32.0-36.0) g/dL RDW Std Deviation (36.4-46.3) fL RDW Coeff of Benita (11.5-14.5) % Plt Count (130-400) K/uL MPV (9.4-12.4) fL Immature Gran % (Auto) % Neut % (Auto) % Lymph % (Auto) % [place] % (Auto) % Eos % (Auto) % Baso % (Auto) % Neut # (Auto) (1.40-6.50) K/uL Lymph # (Auto) (1.20-3.40) K/uL [place] # (Auto) (0.11-0.59) K/uL Eos # (Auto) (0.00-0.50) K/uL Baso # (Auto) (0.00-0.20) K/uL Immature Gran # (Auto) (0.01-0.20) K/uL POC Sodium (135-144) mmol/L Sodium (136-145) mmol/L POC Potassium (3.3-5.0) mmol/L Potassium (3.5-5.1) mmol/L POC Chloride (101-112) mmol/L Chloride (98-107) mmol/L Carbon Dioxide (21-32) mmol/L POC Total CO2 (24-31) mmol/L Anion Gap (3-11) POC Anion Gap (16-25) mmol/L POC BUN (7-18) mg/dl BUN (6-23) mg/dl Creatinine (0.6-1.2) mg/dl POC Creatinine (0.6-1.3) mg/dl Est Cr Clr Drug Dosing ml/min eGFR BUN/Creatinine Ratio (10-20) Glucose (70-99(Fasting)) mg/dl POC Glucose (other) (70-99) mg/dl Lactate 1.9 (0.4-2.0) mmol/L Calcium (8.6-10.3) mg/dl POC Ioniz Calcium Clint (1.12-1.32) mmol/l Magnesium (1.7-2.4) mg/dl Total Bilirubin (0.2-1.0) mg/dl Direct Bilirubin (0-0.2) mg/dl AST (13-39) U/L ALT (7-52) U/L Alkaline Phosphatase (34-104) U/L Troponin I High Sens (0-14) pg/ml Total Protein (6.0-8.3) gm/dl Albumin (3.4-5.0) gm/dl Procalcitonin (0-0.5) ng/ml Urine Color Urine Appearance (Clear) Urine pH (4.5-7.5) Ur Specific [place] (1.000-1.030) Urine Protein (Negative) Urine Glucose (UA) (Negative) Urine Ketones (Negative) Urine Blood (Negative) Urine Nitrite (Negative) Urine Bilirubin (Negative) Urine Urobilinogen (Negative) Ur Leukocyte Esterase (Negative) Urine WBC (Auto) (0-5) /hpf Urine RBC (Auto) (0-2) /hpf U Hyaline Cast (Auto) (0-2) /lpf U Epithel Cells (Auto) (0-2) /hpf Urine Bacteria (Auto) (None Seen) Urine Comment Administered Medications Discontinued Medications Sodium Chloride (Nss) 1,000 mls @ 999 mls/hr IV .Q1H1M MIKE Stop: 07/17/25 17:45 Last Infusion: 07/17/25 18:05 Dose: Infused Documented By: Admin: 07/17/25 17:04 Dose: 999 mls/hr Documented By: IRASEMA Sodium Chloride (Nss) 1,000 mls @ 999 mls/hr IV .Q1H1M ONE Stop: 07/17/25 18:35 Last Infusion: 07/17/25 18:48 Dose: Infused Documented By: Admin: 07/17/25 17:50 Dose: 999 mls/hr Documented By: IRASEMA Cefepime HCl (Maxipime 2000mg) 2,000 mg in 20 mls @ 5 mls/min IV NOW STA; Protocol Stop: 07/17/25 17:55 Last Admin: 07/17/25 18:39 Dose: 5 mls/min Documented By: IRASEMA Sodium Chloride (Nss) 250 mls @ 999 mls/hr IV .Q16M ONE Stop: 07/17/25 19:59 Last Infusion: 07/17/25 20:39 Dose: Infused Documented By: Admin: 07/17/25 20:22 Dose: 999 mls/hr Documented By: IRASEMA Vancomycin HCl 1,250 mg/ (Sodium Chloride) 275 mls @ 200 mls/hr IV NOW ONE Stop: 07/17/25 21:22 Last Infusion: 07/17/25 21:52 Dose: Infused Documented By: Admin: 07/17/25 20:21 Dose: 200 mls/hr Documented By: IRASEMA Imaging Data Radiologist's Impression: Chest X-Ray 07/17/25 16:36 Chest radiograph, one view History: Sepsis Comparison: 05/22/2025 Findings: Single AP view of the chest performed. No focal consolidation or pleural effusion. No pneumothorax. The cardiomediastinal silhouette is enlarged. Normal pulmonary vascularity. No evidence for lymphadenopathy. No visualized bony or soft tissue abnormality. Left humeral fixation changes. Impression: Cardiomegaly. No other acute process Electronically signed by Jeffrey Major 07-17-2025 6:05 PM Discharge Plan Visit Data Chief Complaint: Urinary Symptoms ED Provider: Miguel Angel Woo Discharge Problem: Acute UTI Patient Disposition: Admitted As Inpatient Condition: Fair
[2025-07-17] MEDS: SODIUM CHLORIDE 0.9% 1,000 ML IV SCH ×2 (17:04→22:42)
[2025-07-17 17:21] LABS: Hematocrit (blood only) 37.7 % (37.0-47.0); Hemoglobin 12.0 g/dl (12.0-16.0); Immature Granulocytes # (auto) 0.18 K/uL (0.01-0.20); Immature Granulocytes % (auto) 0.9 %; Mean Corpuscular Hemoglobin 28.1 pg (25.0-34.0); Mean Corpuscular Volume 88.3 fL (80.0-100.0); Platelet Count 253 K/uL (130-400); RDW Standard Deviation 47.7 fL (36.4-46.3); Red Blood Count 4.27 M/uL (4.20-5.40); White Blood Count 19.58 K/ul (4.8-10.8)
[2025-07-17] MEDS: SODIUM CHLORIDE 0.9% 1,000 ML IV ONE (17:50)
--- NOTE | 2025-07-17 18:05 | XRay Report ---
Chest radiograph, one view History: Sepsis Comparison: 05/22/2025 Findings: Single AP view of the chest performed. No focal consolidation or pleural effusion. No pneumothorax. The cardiomediastinal silhouette is enlarged. Normal pulmonary vascularity. No evidence for lymphadenopathy. No visualized bony or soft tissue abnormality. Left humeral fixation changes. Impression: Cardiomegaly. No other acute process Electronically signed by Jeffrey Major 07-17-2025 6:05 PM
[2025-07-17 18:12] LABS: Potassium 4.3 mmol/L (3.5-5.1)
[2025-07-17 18:15] LABS: Alanine Aminotransferase 34.0 U/L (7-52); Alkaline Phosphatase 209.0 U/L (34-104); Anion Gap 6.0 (3-11); Bilirubin,Total 1.4 mg/dl (0.2-1.0); Blood Urea Nitrogen 18.0 mg/dl (6-23); Calcium 9.1 mg/dl (8.6-10.3); Carbon Dioxide 27.0 mmol/L (21-32); Chloride 99.0 mmol/L (98-107); Creatinine Clr Calc Pharmacy 33.7 ml/min; Glucose 200.0 mg/dl (70-99(Fasting)); Magnesium 1.8 mg/dl (1.7-2.4); Sodium 132.0 mmol/L (136-145); Total Protein 7.2 gm/dl (6.0-8.3)
[2025-07-17] MEDS: CEFEPIME 2000MG 2,000 MG/20 ML SYR IV STA (18:39)
[2025-07-17 18:57] LABS: Appearance Urine Turbid (Clear); Bacteria Urine Automated 3+ (None Seen); Epithelial Cell Urine Auto >20 /hpf (0-2); Glucose Urine UA 1+ (Negative); WBC Urine Automated >50 /hpf (0-5)
[2025-07-17] MEDS ORDERED: VANCOMYCIN CONSULT ACTIVE PRN (19:44)
[2025-07-17] MEDS ORDERED: VANCOMYCIN HCL 1,000 MG/270 ML BAG IV SCH (19:45)
--- NOTE | 2025-07-17 20:17 | History & Physical Report ---
Date of Service July 17, 2025 Assessment & Plan (1) Sepsis: Plan: 84-year-old female with past med history significant for hypothyroidism, history of systolic CHF, nonrheumatic aortic valve stenosis, GERD, CKD stage IIIa, history of generalized weakness, history of lipodermatosclerosis of lower extremities, kyphosis of spine, osteoporosis, macular degeneration, postherpetic polyneuropathy, essential tremor, inguinal lymphadenopathy, depression, gait disturbance, history of COVID, history of MRSA screen positive, spinal stenosis of cervical region,, comes from [facility] for confusion and found to be in sepsis and UTI and possible lower extremity cellulitis. Patient is somewhat sleepy but alert and oriented x 3. Have to wake up frequently to ask questions. States feeling cold. Denies any headache. Denies runny nose or sore throat or cough. Denies chest pain or shortness of breath. Denies nausea. Denies abdominal pain. States normal bowel and bladder movements. Has some pain in the lower extremities. Says she is mostly wheelchair-bound. Currently not able to reach skilled nursing. Able to talk to her cousin. Her cousin's is power of treatment technician. As per cousin patient is mostly wheelchair-bound she can walk small distance with assistance. Has chronic knee pain. Patient is DNR but her power of treatment technician says okay to try for resuscitation for short period of time if there is chance of recovery. Sepsis UTI and possible lower extremity cellulitis Came with confusion, tachycardia, soft blood pressure, WBC 19, initial lactic acid 3 and repeat is 1.9 UA is positive. Chest x-ray no acute process Received cefepime in the ER. History of ESBL UTI Will empirically place on Invanz and IV vancomycin Received fluid bolus in the ER Continue with IV fluids 100 mL/h Will follow CT abdomen pelvis to rule out any obstructing stones Closely monitor hemodynamics and telemetry Will follow cultures History of chronic systolic CHF Severe aortic valve stenosis Echo done on 03/03/2024 shows EF of 65-69 % and severe aortic valve stenosis At home on Lasix 20 mg every other day which will be held for now Getting fluids for sepsis Monitor for volume overload closely CKD stage III A Baseline creatinine around 1 Presented with creatinine of 1 We will follow the labs Hyponatremia Sodium 132 Will follow repeat labs Hypothyroidism On Synthyroid GERD on omeprazole A-fib On metoprolol succinate and Eliquis We will monitor closely Depression On paroxetine and Lamictal Anxiety On hydroxyzine Ambulatory dysfunction Mostly wheelchair-bound Can walk short distance with assistance PT OT when stable DVT prophylaxis On Eliquis Disposition Telemetry CODE STATUS full code only if there is chance of recovery as per my discussion with her family History of Present Illness Chief Complaint: Confusion, sepsis Primary Care Provider: Dion Choe DO 84-year-old female with past med history significant for hypothyroidism, history of systolic CHF, nonrheumatic aortic valve stenosis, GERD, CKD stage IIIa, history of generalized weakness, history of lipodermatosclerosis of lower extremities, kyphosis of spine, osteoporosis, macular degeneration, postherpetic polyneuropathy, essential tremor, inguinal lymphadenopathy, depression, gait disturbance, history of COVID, history of MRSA screen positive, spinal stenosis of cervical region,, comes from [facility] for confusion and found to be in sepsis and UTI and possible lower extremity cellulitis. Patient is somewhat sleepy but alert and oriented x 3. Have to wake up frequently to ask questions. States feeling cold. Denies any headache. Denies runny nose or sore throat or cough. Denies chest pain or shortness of breath. Denies nausea. Denies abdominal pain. States normal bowel and bladder movements. Has some pain in the lower extremities. Says she is mostly wheelchair-bound. Currently not able to reach skilled nursing. Able to talk to her cousin. Her cousin's is power of treatment technician. As per cousin patient is mostly wheelchair-bound she can walk small distance with assistance. Has chronic knee pain. Patient is DNR but her power of treatment technician says okay to try for resuscitation for short period of time if there is chance of recovery. Past medical history. As mentioned above. Past surgical history. Leg trochanteric fracture treatment. Social history. Current living [facility]. No smoking. No alcohol use. No drug use. Family history. Mother had arthritis. Paternal aunt had breast cancer. Maternal aunt had breast cancer. Paternal aunt had non-Hodgkin's lymphoma. Father had prostate cancer. Paternal aunt had diabetes. Paternal aunts had hypertension. Allergies Allergy/AdvReac Type Severity Reaction Status Date / Time No Known Allergies Allergy Verified 07/17/25 19:11 Home Medications Medication Instructions Recorded Confirmed Type hydroxyzine HCl 10 mg tablet 10 mg PO BID 01/12/24 07/17/25 History hydroxyzine HCl 10 mg tablet 20 mg PO HS 01/12/24 07/17/25 History lamotrigine 200 mg tablet 200 mg PO HS 01/12/24 07/17/25 History levothyroxine 75 mcg tablet 75 mcg PO DAILY 01/12/24 07/17/25 History omeprazole 40 mg capsule,delayed 40 mg PO DAILYBB 01/12/24 07/17/25 History release oxybutynin chloride 5 mg tablet 2.5 mg PO BID 01/12/24 07/17/25 History paroxetine HCl 30 mg tablet 30 mg PO HS 01/12/24 07/17/25 History vit C 250 mg-vit E 90 mg-zinc 40 1 tab PO BID 01/12/24 07/17/25 History mg-copper 1 [id number] capsule (PreserVision AREDS-2) hydroxyzine HCl 10 mg tablet 10 - 20 mg PO DIRECTED PRN 01/13/24 07/17/25 History Anxiety/Mood loperamide 2 mg capsule (Imodium 2 - 4 mg PO DIRECTED 09/30/24 07/17/25 History A-D) melatonin 3 mg disintegrating 3 mg PO HS PRN Insomnia 09/30/24 07/17/25 History tablet furosemide 20 mg tablet (Lasix) 20 mg PO Q OTHER DAY #30 tabs 10/04/24 07/17/25 Rx multivitamin (Daily-Priscila tablet) 1 tab PO DAILY 03/15/25 07/17/25 History apixaban 5 mg tablet (Eliquis) 5 mg PO BID #60 tabs 03/17/25 07/17/25 Rx calcium 500 mg (as 1 tab PO DAILY 04/30/25 07/17/25 History carbonate)-vitamin D3 5 mcg (200 unit) tablet (Oyster Shell Calcium-Vitamin D3) metoprolol succinate 100 mg 100 mg PO QAM 04/30/25 07/17/25 History tablet,extended release 24 hr tramadol 50 mg tablet 50 mg PO BID PRN pain #11 tabs 05/22/25 07/17/25 Rx naproxen sodium 220 mg tablet 220 mg PO BID PRN Pain 07/17/25 07/17/25 History Past Med/Surg History Problem List (Updated 07/17/25 @ 22:07 by Miguel Angel Woo DO) Acute UTI (Acute) Sepsis Cervical strain, acute Chronic heart failure with preserved ejection fraction Venous stasis dermatitis of both lower extremities Syncope, cardiogenic Laceration of scalp (Acute) Atrial fibrillation with rapid ventricular response (Acute) Fall from standing (Acute) Cholelithiasis Bilateral lower leg cellulitis (Acute) Aortic stenosis Depression with anxiety Sensory polyneuropathy Essential tremor Fracture, thoracic vertebra (Acute) COVID-19 virus infection Paroxysmal atrial fibrillation with RVR (Acute) Postherpetic neuralgia (Chronic) Medical History HTN (hypertension) Osteoarthritis of right knee Stasis dermatitis Elevated liver enzymes Degenerative arthritis Anxiety Surgical History History of hip surgery 02/2024 - right femur fracture s/p intermedullary anai S/P cataract surgery Family History Father , age 76 of metastatic prostate cancer Cancer Prostate cancer Heart disease Mother , age 93 Rheumatoid arthritis Social History Smoking Status: Never smoker Second Hand Exposure: No; Do You Dip or Chew Tobacco: No; Tobacco Cessation Education Requested by Patient: No Hx Alcohol Use: No Hx Substance Use: No Preferred Language: [place] Communication Ability: Effective Storeroom Supervisor Required: No Beliefs That Will Affect Care: None marital status: Single Current Living Situation: Personal Care Facility Current Living Situation Comment: [facility] current occupational status: retired 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 Lungs- clear to auscultation no wheezing or crackles Heart- regular rhythm;tachycardia ES murmur, no gallop. Abdomen- normal bowel sounds, soft, nontender, no distension Extremities- Mild b/l lower extremity edema with chronic skin changes and mild erythema seen. superficial ulcers in right lower leg Neuro- Drowsy but oriented x 3; no facial palsy; no dysarthria; moves extremities Results & Data Results & Data Vital Signs (Past 12 Hours) Vital Signs Temp Pulse Pulse Resp BP BP Pulse Ox 07/17/25 18:15 112 H 88/53 L 07/17/25 18:00 108 H 28 H 96/56 L 87 L 07/17/25 17:42 100 H 28 H 88/54 L 98 07/17/25 17:36 108 H 90/56 L 07/17/25 17:34 116 H 32 H 90/56 L 96 07/17/25 17:32 85/55 L 07/17/25 17:30 103 H 79/45 L 07/17/25 17:20 108 H 89/55 L 07/17/25 17:07 88/53 L 07/17/25 17:06 109 H 26 H 88/53 L 07/17/25 17:05 117 H 23 84/47 L 94 07/17/25 17:05 07/17/25 16:52 124 H 07/17/25 16:51 120 H 23 108/73 93 07/17/25 16:18 37.4 C 126 H 22 108/73 96 O2 Del Method 07/17/25 18:15 07/17/25 18:00 07/17/25 17:42 07/17/25 17:36 07/17/25 17:34 07/17/25 17:32 07/17/25 17:30 07/17/25 17:20 07/17/25 17:07 07/17/25 17:06 07/17/25 17:05 07/17/25 17:05 Room Air 07/17/25 16:52 07/17/25 16:51 07/17/25 16:18 Room Air Diagnostic Findings Laboratory Results WBC 19.58 K/ul (4.8-10.8) H 07/17/25 17:00 RBC 4.27 M/uL (4.20-5.40) 07/17/25 17:00 Hgb 12.0 g/dl (12.0-16.0) 07/17/25 17:00 POC Hgb 13.3 g/dl (12.0-16.0) 07/17/25 17:05 Hct 37.7 % (37.0-47.0) 07/17/25 17:00 POC Hct 39 % (37-47) 07/17/25 17:05 MCV 88.3 fL (80.0-100.0) 07/17/25 17:00 MCH 28.1 pg (25.0-34.0) 07/17/25 17:00 MCHC 31.8 g/dL (32.0-36.0) L 07/17/25 17:00 RDW Std Deviation 47.7 fL (36.4-46.3) H 07/17/25 17:00 RDW Coeff of Benita 14.7 % (11.5-14.5) H 07/17/25 17:00 Plt Count 253 K/uL (130-400) 07/17/25 17:00 MPV 8.6 fL (9.4-12.4) L 07/17/25 17:00 Immature Gran % (Auto) 0.9 % 07/17/25 17:00 Neut % (Auto) 89.1 % 07/17/25 17:00 Lymph % (Auto) 2.5 % 07/17/25 17:00 [place] % (Auto) 7.3 % 07/17/25 17:00 Eos % (Auto) 0.0 % 07/17/25 17:00 Baso % (Auto) 0.2 % 07/17/25 17:00 Neut # (Auto) 17.47 K/uL (1.40-6.50) H 07/17/25 17:00 Lymph # (Auto) 0.48 K/uL (1.20-3.40) L 07/17/25 17:00 [place] # (Auto) 1.42 K/uL (0.11-0.59) H 07/17/25 17:00 Eos # (Auto) 0.00 K/uL (0.00-0.50) 07/17/25 17:00 Baso # (Auto) 0.03 K/uL (0.00-0.20) 07/17/25 17:00 Immature Gran # (Auto) 0.18 K/uL (0.01-0.20) 07/17/25 17:00 POC Sodium 134 mmol/L (135-144) L 07/17/25 17:05 Sodium 132 mmol/L (136-145) L 07/17/25 17:00 POC Potassium 4.2 mmol/L (3.3-5.0) 07/17/25 17:05 Potassium 4.3 mmol/L (3.5-5.1) 07/17/25 17:00 POC Chloride 97 mmol/L (101-112) L 07/17/25 17:05 Chloride 99 mmol/L (98-107) 07/17/25 17:00 Carbon Dioxide 27 mmol/L (21-32) 07/17/25 17:00 POC Total CO2 25 mmol/L (24-31) 07/17/25 17:05 Anion Gap 6 (3-11) 07/17/25 17:00 POC Anion Gap 18.0 mmol/L (16-25) 07/17/25 17:05 POC BUN 19 mg/dl (7-18) H 07/17/25 17:05 BUN 18 mg/dl (6-23) 07/17/25 17:00 Creatinine 1.00 mg/dl (0.6-1.2) 07/17/25 17:00 POC Creatinine 1.1 mg/dl (0.6-1.3) 07/17/25 17:05 Est Cr Clr Drug Dosing 33.7 ml/min 07/17/25 17:00 eGFR 55.90 07/17/25 17:00 BUN/Creatinine Ratio 18.0 (10-20) 07/17/25 17:00 Glucose 200 mg/dl (70-99(Fasting)) H 07/17/25 17:00 POC Glucose (other) 201 mg/dl (70-99) H 07/17/25 17:05 Lactate 1.9 mmol/L (0.4-2.0) 07/17/25 18:55 Calcium 9.1 mg/dl (8.6-10.3) 07/17/25 17:00 POC Ioniz Calcium Clint 1.17 mmol/l (1.12-1.32) 07/17/25 17:05 Magnesium 1.8 mg/dl (1.7-2.4) 07/17/25 17:00 Total Bilirubin 1.4 mg/dl (0.2-1.0) H 07/17/25 17:00 Direct Bilirubin 0.5 mg/dl (0-0.2) H 07/17/25 17:00 AST 56 U/L (13-39) H 07/17/25 17:00 ALT 34 U/L (7-52) 07/17/25 17:00 Alkaline Phosphatase 209 U/L (34-104) H 07/17/25 17:00 Troponin I High Sens 12.4 pg/ml (0-14) 07/17/25 17:00 Total Protein 7.2 gm/dl (6.0-8.3) 07/17/25 17:00 Albumin 3.6 gm/dl (3.4-5.0) 07/17/25 17:00 Procalcitonin 0.48 ng/ml (0-0.5) 07/17/25 17:00 Urine Color Dark Yellow 07/17/25 16:32 Urine Appearance Turbid (Clear) A 07/17/25 16:32 Urine pH 5.5 (4.5-7.5) 07/17/25 16:32 Ur Specific Ailey 1.027 (1.000-1.030) 07/17/25 16:32 Urine Protein 2+ (Negative) H 07/17/25 16:32 Urine Glucose (UA) 1+ (Negative) H 07/17/25 16: Urine Ketones Trace (Negative) H 07/17/25 16:32 Urine Blood Negative (Negative) 07/17/25 16:32 Urine Nitrite Negative (Negative) 07/17/25 16:32 Urine Bilirubin 1+ (Negative) H 07/17/25 16:32 Urine Urobilinogen Negative (Negative) 07/17/25 16:32 Ur Leukocyte Esterase 2+ (Negative) H 07/17/25 16:32 Urine WBC (Auto) >50 /hpf (0-5) H 07/17/25 16:32 Urine RBC (Auto) 3-5 /hpf (0-2) H 07/17/25 16:32 U Hyaline Cast (Auto) 11-20 /lpf (0-2) H 07/17/25 16:32 U Epithel Cells (Auto) >20 /hpf (0-2) H 07/17/25 16:32 Urine Bacteria (Auto) 3+ (None Seen) H 07/17/25 16:32 Urine Comment 07/17/25 16:32 Impressions Chest X-Ray 07/17/25 16:36 Chest radiograph, one view History: Sepsis Comparison: 05/22/2025 Findings: Single AP view of the chest performed. No focal consolidation or pleural effusion. No pneumothorax. The cardiomediastinal silhouette is enlarged. Normal pulmonary vascularity. No evidence for lymphadenopathy. No visualized bony or soft tissue abnormality. Left humeral fixation changes. Impression: Cardiomegaly. No other acute process Electronically signed by Jeffrey Major 07-17-2025 6:05 PM ECG Additional Comments: ECG. Atrial fibrillation with rapid ventricular response with rate of 115. No significant changes found. QTc 392. Code Status & VTE Plan VTE Prophylaxis Plan VTE Prophylaxis will be ordered: Yes
[2025-07-17] MEDS: VANCOMYCIN HCL 1,250 MG in SODIUM CHLORIDE 0.9% 250 ML IV ONE (20:21)
[2025-07-17] MEDS: SODIUM CHLORIDE 0.9% 250 ML IV ONE (20:22)
[2025-07-17] MEDS ORDERED: NITROGLYCERIN SL 0.4 MG/TAB TAB SL PRN (22:03)
[2025-07-17] MEDS ORDERED: NON-FORMULARY MEDICATION (Vit C,E-Zn-Coppr-Lutein-Zeaxan [Preservision Areds-2] 250-90-40- PO SCH (22:03)
[2025-07-17] MEDS ORDERED: MELATONIN 3 MG TAB PO PRN (22:33)
[2025-07-17] MEDS: ERTAPENEM 1000MG 1,000 MG/10 ML SYR IV STA (22:40)
[2025-07-17] MEDS: APIXABAN 5 MG TABLET PO SCH (23:35)
[2025-07-17] MEDS: lamoTRIgine 100 MG TAB PO SCH (23:35)
[2025-07-18 04:47] LABS: A calco-baum cmplx NotReported Not Detected (NotDetected); Bact fragilis Not Reported Not Detected (NotDetected); Blood Culture Id Panel See PCR Comment (NotDetected); C auris Not Reported Not Detected (NotDetected); Calbicans Not Reported Not Detected (NotDetected); Candida glabrata Not Reported Not Detected (NotDetected); Candida krusei Not Reported Not Detected (NotDetected); Cneoformans/gatti Not Reported Not Detected (NotDetected); Cparapsilosis Not Reported Not Detected (NotDetected); Ctropicalis Not Reported Not Detected (NotDetected); E cloacae compx Not Reported Not Detected (NotDetected); Efaecalis Not Reported Not Detected (NotDetected); Efaecium Not Reported Not Detected (NotDetected); Enterobacterales Not Reported Not Detected (NotDetected); Escherichia coli Not Reported Not Detected (NotDetected); H influenzae Not Reported Not Detected (NotDetected); K aerogenes Not Reported Not Detected (NotDetected); Koxytoca Not Reported Not Detected (NotDetected); Kpneumoniae grp Not Reported Not Detected (NotDetected); Lmonocyt Not Reported Not Detected (NotDetected); N meningitidis Not Reported Not Detected (NotDetected); P aeruginosa Not Reported Not Detected (NotDetected); Proteus spp Not Reported Not Detected (NotDetected); Salmonella spp Not Reported Not Detected (NotDetected); Staph lugdunensis Not Reported Not Detected (NotDetected); Staph spp. Not Reported Not Detected (NotDetected); Staphaureus Not Reported Not Detected (NotDetected); Staphepi Not Reported Not Detected (NotDetected); Stenmaltophilia Not Reported Not Detected (NotDetected); Strep agal(GrpB) Not Reported DETECTED (NotDetected); Strep pneum Not Reported Not Detected (NotDetected); Strep pyog (GrpA) Not Reported Not Detected (NotDetected); Strep spp Not Reported DETECTED (NotDetected); Streptococcus spp DETECTED (NotDetected)
[2025-07-18 05:08] LABS: Streptococcus agalactiae(GrpB) DETECTED (NotDetected)
[2025-07-18 05:47] LABS: Hematocrit (blood only) 33.2 % (37.0-47.0); Hemoglobin 11.0 g/dl (12.0-16.0); Immature Granulocytes # (auto) 0.15 K/uL (0.01-0.20); Immature Granulocytes % (auto) 0.8 %; Mean Corpuscular Hemoglobin 29.6 pg (25.0-34.0); Mean Corpuscular Volume 89.5 fL (80.0-100.0); Platelet Count 192 K/uL (130-400); RDW Standard Deviation 47.8 fL (36.4-46.3); Red Blood Count 3.71 M/uL (4.20-5.40); White Blood Count 17.77 K/ul (4.8-10.8)
[2025-07-18 06:05] LABS: Anion Gap 4.0 (3-11); Blood Urea Nitrogen 19.0 mg/dl (6-23); Calcium 8.4 mg/dl (8.6-10.3); Carbon Dioxide 24.0 mmol/L (21-32); Chloride 107.0 mmol/L (98-107); Creatinine Clr Calc Pharmacy 34.8 ml/min; Glucose 141.0 mg/dl (70-99(Fasting)); Magnesium 1.7 mg/dl (1.7-2.4); Potassium 4.4 mmol/L (3.5-5.1); Sodium 135.0 mmol/L (136-145)
[2025-07-18] MEDS: LEVOTHYROXINE SODIUM 75 MCG TABLET PO SCH (06:11)
[2025-07-18] MEDS ORDERED: VANCOMYCIN HCL 1,000 MG/270 ML BAG IV SCH (08:00)
[2025-07-18] MEDS: MAGNESIUM CHLORIDE W/CALCIUM 64MG DELAYED REL TAB PO SCH (08:50)
[2025-07-18] MEDS: MULTIVITAMIN TAB PO SCH (08:51)
[2025-07-18] MEDS: METOPROLOL SUCC 50MG EXT REL TAB PO SCH (08:51)
[2025-07-18] MEDS: CALCIUM 600MG + VIT D 400 IU TAB PO SCH (08:52)
--- NOTE | 2025-07-18 09:47 | CT Scan Report ---
ABDOMEN AND PELVIS CT WITHOUT CONTRAST CT DOSE: 994.8 mGy.cm HISTORY: uti , sepsis. kidney stone? TECHNIQUE: Multiaxial CT images of the abdomen and pelvis were performed without contrast. A dose lo wering technique was utilized adhering to the principles of ALARA. COMPARISON STUDY: 09/30/2024 FINDINGS: There are very small bilateral pleural effusions which layer dependently. There is adjacent bandlike and patchy consolidation at the right lung base which could represent atelectasis or pneumo lalo. There is prominent cardiomegaly. There are aortic and mitral valvular calcifications and coronar y artery calcifications. ABDOMEN: There is gallbladder sludge. There is prominent gallbladder wall thickening and likely mild adjacent pericholecystic fluid. Findings suggest acute cholecystitis. Liver, spleen, and adrenal glan ds have an unremarkable and IV contrast appearance. There is fatty atrophy of the pancreas. Kidneys s how no hydronephrosis bilaterally. No renal or ureteral calculi seen. There are scattered atheroscler otic calcifications. No abdominal aortic aneurysm. There is trace ascites. Pelvis: Medina catheter is present. Urinary bladder is decompressed. There is moderate retained stool. No bowel inflammation or obstruction. No free air or abscess. There are a few enlarged right inguina l lymph nodes measuring up to 1.8 cm, increased in size. Osseous structures: There is osteopenia. Right femoral gamma nail is partially visualized. There is a stable old ununited fracture proximal right femur. There is lumbar degenerative disc disease. IMPRESSION: 1. Possible acute cholecystitis versus gallbladder edema from the trace ascites. 2. Interval right inguinal lymphadenopathy. 3. No other acute findings seen at the abdomen or pelvis. 4. Findings suggesting CHF with very small bilateral pleural effusions. Atelectasis versus pneumonia at the right lung base. 5. Otherwise as described. ACT 112: Negative or not required by law. The above report was generated using voice recognition software. It may contain grammatical, syntax o r spelling errors. Electronically signed by: Ang Edwards M.D. 07/18/2025 9:46 AM
--- NOTE | 2025-07-18 11:27 | Surgery Consultation ---
Date of Consultation July 18, 2025 Assessment & Plan (1) Acute UTI: (2) Sepsis: (3) Chronic heart failure with preserved ejection fraction: (4) Atrial fibrillation with rapid ventricular response: Plan 84-year-old woman with multiple medical problems admitted to the hospital for UTI as well as cellulitis, on Eliquis, with CHF. She has no symptoms or signs of acute cholecystitis. This appears to be an isolated finding on CT scan, easily explained by her CHF and volume overload. I would not recommend any surgical intervention at this time. Will sign off. Please call with any questions or concerns. History of Present Illness Reason for Consultation: possible acute cholecystitis Requesting Physician: Mitch Anthony MD Attending Physician: Mitch Anthony MD History of Present Illness 84-year-old female with past med history significant for hypothyroidism, history of systolic CHF, nonrheumatic aortic valve stenosis, GERD, CKD stage IIIa, history of generalized weakness, history of lipodermatosclerosis of lower extremities, kyphosis of spine, osteoporosis, macular degeneration, postherpetic polyneuropathy, essential tremor, inguinal lymphadenopathy, depression, gait disturbance, history of COVID, history of MRSA screen positive, spinal stenosis of cervical region,, comes from [facility] for confusion and found to be in sepsis and UTI and possible lower extremity cellulitis. we have been asked to consult for possible acute cholecystitis, based off a CT scan which shows some fluid around the gallbladder. Of note, she does have CHF, as well as fluid overload, which will cause both fluid around the gallbladder as well as thickening of the wall. She is alert and oriented. She denies any right upper quadrant pain. She denies any nausea or vomiting. She has been eating completely normally. She denies any symptoms related to the gallbladder whatsoever. Allergies Allergy/AdvReac Type Severity Reaction Status Date / Time No Known Allergies Allergy Verified 07/17/25 19:11 Home Medications Medication Instructions Recorded Confirmed Type hydroxyzine HCl 10 mg tablet 10 mg PO BID 01/12/24 07/17/25 History hydroxyzine HCl 10 mg tablet 20 mg PO HS 01/12/24 07/17/25 History lamotrigine 200 mg tablet 200 mg PO HS 01/12/24 07/17/25 History levothyroxine 75 mcg tablet 75 mcg PO DAILY 01/12/24 07/17/25 History omeprazole 40 mg capsule,delayed 40 mg PO DAILYBB 01/12/24 07/17/25 History release oxybutynin chloride 5 mg tablet 2.5 mg PO BID 01/12/24 07/17/25 History paroxetine HCl 30 mg tablet 30 mg PO HS 01/12/24 07/17/25 History vit C 250 mg-vit E 90 mg-zinc 40 1 tab PO BID 01/12/24 07/17/25 History mg-copper 1 oz-bcyivy-acytnl capsule (PreserVision AREDS-2) hydroxyzine HCl 10 mg tablet 10 - 20 mg PO DIRECTED PRN 01/13/24 07/17/25 History Anxiety/Mood loperamide 2 mg capsule (Imodium 2 - 4 mg PO DIRECTED 09/30/24 07/17/25 History A-D) melatonin 3 mg disintegrating 3 mg PO HS PRN Insomnia 09/30/24 07/17/25 History tablet furosemide 20 mg tablet (Lasix) 20 mg PO Q OTHER DAY #30 tabs 10/04/24 07/17/25 Rx multivitamin (Daily-Priscila tablet) 1 tab PO DAILY 03/15/25 07/17/25 History apixaban 5 mg tablet (Eliquis) 5 mg PO BID #60 tabs 03/17/25 07/17/25 Rx calcium 500 mg (as 1 tab PO DAILY 04/30/25 07/17/25 History carbonate)-vitamin D3 5 mcg (200 unit) tablet (Oyster Shell Calcium-Vitamin D3) metoprolol succinate 100 mg 100 mg PO QAM 04/30/25 07/17/25 History tablet,extended release 24 hr tramadol 50 mg tablet 50 mg PO BID PRN pain #11 tabs 05/22/25 07/17/25 Rx naproxen sodium 220 mg tablet 220 mg PO BID PRN Pain 07/17/25 07/17/25 History Patient History Medical History HTN (hypertension) Osteoarthritis of right knee Stasis dermatitis Elevated liver enzymes Degenerative arthritis Anxiety Surgical History History of hip surgery 02/2024 - right femur fracture s/p intermedullary anai S/P cataract surgery Family History Father , age 76 of metastatic prostate cancer Cancer Prostate cancer Heart disease Mother , age 93 Rheumatoid arthritis Social History Smoking Status: Never smoker Second Hand Exposure: No; Do You Dip or Chew Tobacco: No; Tobacco Cessation Education Requested by Patient: No Hx Alcohol Use: No Hx Substance Use: No Preferred Language: Slovenian Communication Ability: Effective Elevator Service Technician Required: No Beliefs That Will Affect Care: None marital status: Single Current Living Situation: Personal Care Facility Current Living Situation Comment: [facility] current occupational status: retired 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57 How many Children do You have: 0 Other Information That Helps Us Care for You: No Feels Safe at Home: Yes Safety Concerns: Feels Safe At This Time Assistive Devices: Glasses and Wheelchair Review of Systems Review of Systems: All systems reviewed & are unremarkable except as noted in HPI & below Physical Exam Constitutional: WD/WN, vitals as above Eyes: PERRL, conjunctivae normal, anicteric sclerae Neck: trachea midline, no thyromegaly Respiratory: normal respiratory effort; no respiratory distress and no labored breathing Cardiovascular: Rate/Rhythm: regular rate and regular rhythm Gastrointestinal (Abdomen): Inspection/Auscultation: abdomen normal to inspection; abdomen not distended Percussion/Palpation: abdomen soft; abdomen nontender, no guarding and abdomen not rigid Skin: no rashes, warm and dry Psychiatric: A+Ox3, euthymic affect Results & Data Vital Signs (Past 12 Hours) Vital Signs Temp Pulse Pulse Resp BP Pulse Ox O2 Del Method 07/18/25 09:40 Nasal Cannula 07/18/25 07:25 37.1 C 95 H 24 104/69 97 Nasal Cannula 07/18/25 03:44 93 H 98 Nasal Cannula 07/18/25 03:18 36.7 C 107 H 20 96/60 L 91 Room Air 07/18/25 00:45 Room Air 07/18/25 00:45 36.6 C 108 H 24 102/65 92 Room Air 07/17/25 23:55 115 H 19 105/63 93 Room Air O2 Flow Rate 07/18/25 09:40 1 07/18/25 07:25 1 07/18/25 03:44 1 07/18/25 03:18 07/18/25 00:45 07/18/25 00:45 07/17/25 23:55 Laboratory Results 07/18/25 07/18/25 07/17/25 Range/Units Unknown 05:08 18:55 WBC 17.77 H (4.8-10.8) K/ul RBC 3.71 L (4.20-5.40) M/uL Hgb 11.0 L (12.0-16.0) g/dl POC Hgb (12.0-16.0) g/dl Hct 33.2 L (37.0-47.0) % POC Hct (37-47) % MCV 89.5 (80.0-100.0) fL MCH 29.6 (25.0-34.0) pg MCHC 33.1 (32.0-36.0) g/dL RDW Std Deviation 47.8 H (36.4-46.3) fL RDW Coeff of Benita 14.6 H (11.5-14.5) % Plt Count 192 (130-400) K/uL MPV 8.7 L (9.4-12.4) fL Immature Gran % (Auto) 0.8 % Neut % (Auto) 86.6 % Lymph % (Auto) 4.5 % [place] % (Auto) 7.7 % Eos % (Auto) 0.1 % Baso % (Auto) 0.3 % Neut # (Auto) 15.39 H (1.40-6.50) K/uL Lymph # (Auto) 0.80 L (1.20-3.40) K/uL [place] # (Auto) 1.37 H (0.11-0.59) K/uL Eos # (Auto) 0.01 (0.00-0.50) K/uL Baso # (Auto) 0.05 (0.00-0.20) K/uL Immature Gran # (Auto) 0.15 (0.01-0.20) K/uL POC Sodium (135-144) mmol/L Sodium 135 L (136-145) mmol/L POC Potassium (3.3-5.0) mmol/L Potassium 4.4 (3.5-5.1) mmol/L POC Chloride (101-112) mmol/L Chloride 107 (98-107) mmol/L Carbon Dioxide 24 (21-32) mmol/L POC Total CO2 (24-31) mmol/L Anion Gap 4 (3-11) POC Anion Gap (16-25) mmol/L POC BUN (7-18) mg/dl BUN 19 (6-23) mg/dl Creatinine 0.97 (0.6-1.2) mg/dl POC Creatinine (0.6-1.3) mg/dl Est Cr Clr Drug Dosing 34.8 ml/min eGFR 57.98 BUN/Creatinine Ratio 19.6 (10-20) Glucose 141 H (70-99(Fasting)) mg/dl POC Glucose (other) (70-99) mg/dl Lactate 1.9 (0.4-2.0) mmol/L Calcium 8.4 L (8.6-10.3) mg/dl POC Ioniz Calcium Clint (1.12-1.32) mmol/l Magnesium 1.7 (1.7-2.4) mg/dl Total Bilirubin (0.2-1.0) mg/dl Direct Bilirubin (0-0.2) mg/dl AST (13-39) U/L ALT (7-52) U/L Alkaline Phosphatase (34-104) U/L Troponin I High Sens (0-14) pg/ml Total Protein (6.0-8.3) gm/dl Albumin (3.4-5.0) gm/dl Procalcitonin (0-0.5) ng/ml Urine Color Urine Appearance (Clear) Urine pH (4.5-7.5) Ur Specific [place] (1.000-1.030) Urine Protein (Negative) Urine Glucose (UA) (Negative) Urine Ketones (Negative) Urine Blood (Negative) Urine Nitrite (Negative) Urine Bilirubin (Negative) Urine Urobilinogen (Negative) Ur Leukocyte Esterase (Negative) Urine WBC (Auto) (0-5) /hpf Urine RBC (Auto) (0-2) /hpf U Hyaline Cast (Auto) (0-2) /lpf U Epithel Cells (Auto) (0-2) /hpf Urine Bacteria (Auto) (None Seen) Urine Comment Nasal Screen MRSA (PCR) Positive A (Negative) Streptococcus sp PCR (NotDetected) Strep agalactiae (PCR) (NotDetected) Bld Cult ID Panel PCR (NotDetected) 07/17/25 07/17/25 07/17/25 Range/Units 17:05 17:00 16:32 WBC 19.58 H (4.8-10.8) K/ul RBC 4.27 (4.20-5.40) M/uL Hgb 12.0 (12.0-16.0) g/dl POC Hgb 13.3 (12.0-16.0) g/dl Hct 37.7 (37.0-47.0) % POC Hct 39 (37-47) % MCV 88.3 (80.0-100.0) fL MCH 28.1 (25.0-34.0) pg MCHC 31.8 L (32.0-36.0) g/dL RDW Std Deviation 47.7 H (36.4-46.3) fL RDW Coeff of Benita 14.7 H (11.5-14.5) % Plt Count 253 (130-400) K/uL MPV 8.6 L (9.4-12.4) fL Immature Gran % (Auto) 0.9 % Neut % (Auto) 89.1 % Lymph % (Auto) 2.5 % [place] % (Auto) 7.3 % Eos % (Auto) 0.0 % Baso % (Auto) 0.2 % Neut # (Auto) 17.47 H (1.40-6.50) K/uL Lymph # (Auto) 0.48 L (1.20-3.40) K/uL [place] # (Auto) 1.42 H (0.11-0.59) K/uL Eos # (Auto) 0.00 (0.00-0.50) K/uL Baso # (Auto) 0.03 (0.00-0.20) K/uL Immature Gran # (Auto) 0.18 (0.01-0.20) K/uL POC Sodium 134 L (135-144) mmol/L Sodium 132 L (136-145) mmol/L POC Potassium 4.2 (3.3-5.0) mmol/L Potassium 4.3 (3.5-5.1) mmol/L POC Chloride 97 L (101-112) mmol/L Chloride 99 (98-107) mmol/L Carbon Dioxide 27 (21-32) mmol/L POC Total CO2 25 (24-31) mmol/L Anion Gap 6 (3-11) POC Anion Gap 18.0 (16-25) mmol/L POC BUN 19 H (7-18) mg/dl BUN 18 (6-23) mg/dl Creatinine 1.00 (0.6-1.2) mg/dl POC Creatinine 1.1 (0.6-1.3) mg/dl Est Cr Clr Drug Dosing 33.7 ml/min eGFR 55.90 BUN/Creatinine Ratio 18.0 (10-20) Glucose 200 H (70-99(Fasting)) mg/dl POC Glucose (other) 201 H (70-99) mg/dl Lactate 3.0 H* (0.4-2.0) mmol/L Calcium 9.1 (8.6-10.3) mg/dl POC Ioniz Calcium Clint 1.17 (1.12-1.32) mmol/l Magnesium 1.8 (1.7-2.4) mg/dl Total Bilirubin 1.4 H (0.2-1.0) mg/dl Direct Bilirubin 0.5 H (0-0.2) mg/dl AST 56 H (13-39) U/L ALT 34 (7-52) U/L Alkaline Phosphatase 209 H (34-104) U/L Troponin I High Sens 12.4 (0-14) pg/ml Total Protein 7.2 (6.0-8.3) gm/dl Albumin 3.6 (3.4-5.0) gm/dl Procalcitonin 0.48 (0-0.5) ng/ml Urine Color Dark Yellow Urine Appearance Turbid A (Clear) Urine pH 5.5 (4.5-7.5) Ur Specific [place] 1.027 (1.000-1.030) Urine Protein 2+ H (Negative) Urine Glucose (UA) 1+ H (Negative) Urine Ketones Trace H (Negative) Urine Blood Negative (Negative) Urine Nitrite Negative (Negative) Urine Bilirubin 1+ H (Negative) Urine Urobilinogen Negative (Negative) Ur Leukocyte Esterase 2+ H (Negative) Urine WBC (Auto) >50 H (0-5) /hpf Urine RBC (Auto) 3-5 H (0-2) /hpf U Hyaline Cast (Auto) 11-20 H (0-2) /lpf U Epithel Cells (Auto) >20 H (0-2) /hpf Urine Bacteria (Auto) 3+ H (None Seen) Urine Comment Nasal Screen MRSA (PCR) (Negative) Streptococcus sp PCR DETECTED A (NotDetected) Strep agalactiae (PCR) DETECTED A (NotDetected) Bld Cult ID Panel PCR See PCR Comment (NotDetected) Diagnostic Findings ABDOMEN AND PELVIS CT WITHOUT CONTRAST CT DOSE: 994.8 mGy.cm HISTORY: uti , sepsis. kidney stone? TECHNIQUE: Multiaxial CT images of the abdomen and pelvis were performed without contrast. A dose lowering technique was utilized adhering to the principles of ALARA. COMPARISON STUDY: 09/30/2024 FINDINGS: There are very small bilateral pleural effusions which layer dependently. There is adjacent bandlike and patchy consolidation at the right lung base which could represent atelectasis or pneumonia. There is prominent cardiomegaly. There are aortic and mitral valvular calcifications and coronary artery calcifications. ABDOMEN: There is gallbladder sludge. There is prominent gallbladder wall thickening and likely mild adjacent pericholecystic fluid. Findings suggest acute cholecystitis. Liver, spleen, and adrenal glands have an unremarkable and IV contrast appearance. There is fatty atrophy of the pancreas. Kidneys show no hydronephrosis bilaterally. No renal or ureteral calculi seen. There are scattered atherosclerotic calcifications. No abdominal aortic aneurysm. There is trace ascites. Pelvis: [place] catheter is present. Urinary bladder is decompressed. There is moderate retained stool. No bowel inflammation or obstruction. No free air or abscess. There are a few enlarged right inguinal lymph nodes measuring up to 1.8 cm, increased in size. Osseous structures: There is osteopenia. Right femoral gamma nail is partially visualized. There is a stable old ununited fracture proximal right femur. There is lumbar degenerative disc disease. IMPRESSION: 1. Possible acute cholecystitis versus gallbladder edema from the trace ascites. 2. Interval right inguinal lymphadenopathy. 3. No other acute findings seen at the abdomen or pelvis. 4. Findings suggesting CHF with very small bilateral pleural effusions. Atelectasis versus pneumonia at the right lung base. 5. Otherwise as described. ACT 112: Negative or not required by law. The above report was generated using voice recognition software. It may contain grammatical, syntax or spelling errors. Electronically signed by: Ang Edwards M.D. 07/18/2025 9:46 AM
[2025-07-18] MEDS: ACETAMINOPHEN 325 MG TAB PO PRN (12:47)
--- NOTE | 2025-07-18 13:39 | Hospitalist Progress Note ---
Date of Service July 18, 2025 Assessment & Plan (1) Sepsis: Plan: 84-year-old female with past med history significant for hypothyroidism, history of systolic CHF, nonrheumatic aortic valve stenosis, GERD, CKD stage IIIa, history of generalized weakness, history of lipodermatosclerosis of lower extremities, kyphosis of spine, osteoporosis, macular degeneration, postherpetic polyneuropathy, essential tremor, inguinal lymphadenopathy, depression, gait disturbance, history of COVID, history of MRSA screen positive, spinal stenosis of cervical region,, comes from [facility] for confusion and found to be in sepsis and UTI and possible lower extremity cellulitis. Patient is somewhat sleepy but alert and oriented x 3. Have to wake up frequently to ask questions. States feeling cold. Denies any headache. Denies runny nose or sore throat or cough. Denies chest pain or shortness of breath. Denies nausea. Denies abdominal pain. States normal bowel and bladder movements. Has some pain in the lower extremities. Says she is mostly wheelchair-bound. Currently not able to reach residential. Able to talk to her cousin. Her cousin's is power of disability attorney. As per cousin patient is mostly wheelchair-bound she can walk small distance with assistance. Has chronic knee pain. Patient is DNR but her power of disability attorney says okay to try for resuscitation for short period of time if there is chance of recovery. Sepsis UTI Possible lower extremity cellulitis Acute metabolic encephalopathy--POA Gram-positive bacteremia H/O ESBL --CXR showed no signs of pneumonia --Blood Culture: 03/01: Gram-positive cocci in chains --Urine culture pending --Lactic acidosis resolved with IV fluids -- Continue ertapenem, doxycycline --Continue wound care --Will obtain resting echo --Will consider infectious disease evaluation as able We will repeat blood cultures in [address] abdomen Concerning for possible acute cholecystitis--less likely --CT ABD:Possible acute cholecystitis versus gallbladder edema from the trace ascites. Interval right inguinal lymphadenopathy. No other acute findings seen at the abdomen or pelvis. -- Denies any abdominal pain, nausea, vomiting. No tenderness on exam -Appreciate surgery input A-fib RVR H/O Afib Rate is currently controlled Continue metoprolol succinate 100 mg daily On Eliquis for anticoagulation Monitor and replete electrolytes as needed Chronic systolic CHF Severe aortic valve stenosis Echo done on 03/03/2024 shows EF of 65-69 % and severe aortic valve stenosis Received IV fluids secondary to sepsis Monitor volume status closely Resume home diuretics as able Continue metoprolol CKD III Cr at baseline Monitor renal function Avoid nephrotoxic agents as able Hyponatremia Sodium levels improved to 135 Monitor Hypothyroidism Continue levothyroxine GERD Continue PPI Depression On paroxetine and Lamictal Anxiety On hydroxyzine Ambulatory dysfunction Mostly wheelchair-bound Can walk short distance with assistance PT OT as able DVT Px: Eliquis CODE STATUS Full code Admission and Anticipated Discharge Date Admission Date: July 17, 2025 Subjective Patient is seen and examined at bedside States having generalized pain predominantly left shoulder which she attributes to arthritis Oriented during my encounter this morning Also states having some leg pain Denies any chest pain, dyspnea, dysuria, nausea, vomiting, abdominal pain Review of Systems Review of Systems: All systems reviewed & are unremarkable except as noted in Subjective Physical Exam Physical Exam: Physical Exam: Vitals signs as noted above General Appearance:Moderately built and nourished, no apparent distress Head: normocephalic, Atraumatic Eyes: normal inspection, EOMI Neck: supple, Trachea midline Respiratory/Chest: Normal breath sounds, basal crackles, No accessory muscle use Cardiovascular: Irregularly irregular, +murmur Abdomen/GI:Soft, Non tender, Bowel sounds present Extremities/Musculoskeletal:normal inspection, B/L LE erythema, warm, edema,+ leg ulcer Neurologic/Psych:AAOX3, grossly no focal neurological deficits Skin: normal color, warm Results & Data Results & Data Vital Signs (Past 12 Hours) Vital Signs Temp Pulse Resp BP Pulse Ox O2 Del Method O2 Flow Rate 07/18/25 09:40 Nasal Cannula 1 07/18/25 07:25 37.1 C 95 H 24 104/69 97 Nasal Cannula 1 07/18/25 03:44 93 H 98 Nasal Cannula 1 07/18/25 03:18 36.7 C 107 H 20 96/60 L 91 Room Air Laboratory Results Short CBC 07/17/25 07/18/25 Range/Units 17:00 05:08 WBC 19.58 H 17.77 H (4.8-10.8) K/ul Hgb 12.0 11.0 L (12.0-16.0) g/dl Hct 37.7 33.2 L (37.0-47.0) % Plt Count 253 192 (130-400) K/uL BMP 07/17/25 07/18/25 17:00 05:08 Sodium 132 L 135 L Potassium 4.3 4.4 Chloride 99 107 Carbon Dioxide 27 24 BUN 18 19 Creatinine 1.00 0.97 Glucose 200 H 141 H Calcium 9.1 8.4 L Liver Function 07/17/25 Range/Units 17:00 Total Bilirubin 1.4 H (0.2-1.0) mg/dl Direct Bilirubin 0.5 H (0-0.2) mg/dl AST 56 H (13-39) U/L ALT 34 (7-52) U/L Alkaline Phosphatase 209 H (34-104) U/L Albumin 3.6 (3.4-5.0) gm/dl Urine 07/17/25 Range/Units 16:32 Urine Color Dark Yellow Urine Appearance Turbid A (Clear) Urine pH 5.5 (4.5-7.5) Ur Specific [place] 1.027 (1.000-1.030) Urine Protein 2+ H (Negative) Urine Glucose (UA) 1+ H (Negative)
[2025-07-18] MEDS: ERTAPENEM 1000MG 1,000 MG/10 ML SYR IV SCH (19:29)
[2025-07-18] MEDS: DOXYCYCLINE HYCLATE 100 MG CAP PO SCH (19:29)
[2025-07-18] MEDS: MICONAZOLE NITRATE POWDER 85 GM EXT SCH (19:30)
[2025-07-19 06:12] LABS: Hematocrit (blood only) 31.4 % (37.0-47.0); Hemoglobin 10.2 g/dl (12.0-16.0); Mean Corpuscular Hemoglobin 29.0 pg (25.0-34.0); Mean Corpuscular Volume 89.2 fL (80.0-100.0); Platelet Count 183 K/uL (130-400); RDW Standard Deviation 49.1 fL (36.4-46.3); Red Blood Count 3.52 M/uL (4.20-5.40); White Blood Count 12.04 K/ul (4.8-10.8)
[2025-07-19 06:35] LABS: Anion Gap 4.0 (3-11); Blood Urea Nitrogen 24.0 mg/dl (6-23); Calcium 8.7 mg/dl (8.6-10.3); Carbon Dioxide 24.0 mmol/L (21-32); Chloride 106.0 mmol/L (98-107); Creatinine Clr Calc Pharmacy 40.5 ml/min; Glucose 123.0 mg/dl (70-99(Fasting)); Magnesium 1.9 mg/dl (1.7-2.4); Potassium 4.2 mmol/L (3.5-5.1); Sodium 134.0 mmol/L (136-145)
--- NOTE | 2025-07-19 13:07 | Hospitalist Progress Note ---
Date of Service July 19, 2025 Assessment & Plan (1) Sepsis: Plan: 84-year-old female with past med history significant for hypothyroidism, history of systolic CHF, nonrheumatic aortic valve stenosis, GERD, CKD stage IIIa, history of generalized weakness, history of lipodermatosclerosis of lower extremities, kyphosis of spine, osteoporosis, macular degeneration, postherpetic polyneuropathy, essential tremor, inguinal lymphadenopathy, depression, gait disturbance, history of COVID, history of MRSA screen positive, spinal stenosis of cervical region,, comes from [facility] for confusion and found to be in sepsis and UTI and possible lower extremity cellulitis. Patient is somewhat sleepy but alert and oriented x 3. Have to wake up frequently to ask questions. States feeling cold. Denies any headache. Denies runny nose or sore throat or cough. Denies chest pain or shortness of breath. Denies nausea. Denies abdominal pain. States normal bowel and bladder movements. Has some pain in the lower extremities. Says she is mostly wheelchair-bound. Currently not able to reach alf. Able to talk to her cousin. Her cousin's is power of trial attorney. As per cousin patient is mostly wheelchair-bound she can walk small distance with assistance. Has chronic knee pain. Patient is DNR but her power of trial attorney says okay to try for resuscitation for short period of time if there is chance of recovery. Sepsis Strep bacteremia--POA Possible lower extremity cellulitis Acute metabolic encephalopathy--POA Ruled out UTI H/O ESBL --CXR showed no signs of pneumonia --Blood Culture: 03/01: Strep agalactiae --Urine culture grew lactobacillus --ECHO: EF 65 to 70%. No regional wall motion abnormality. Left atrium severely dilated. Right atrium moderately dilated. Moderate valvular aortic stenosis. Mild mitral regurgitation, mild mitral stenosis. Moderate tricuspid regurgitation. Pulmonary artery systolic pressure estimated to be 70 mmHg. No evidence of valvular vegetation. --Lactic acidosis resolved with IV fluids -- Continue ertapenem, doxycycline for now --Continue wound care --Consulted infectious disease for further recommendations We will repeat blood cultures tomorrow Gentle IV fluids as needed May need MYRIAM Leukocytosis trending down Abnormal CT abdomen Concerning for possible acute cholecystitis--less likely --CT ABD:Possible acute cholecystitis versus gallbladder edema from the trace ascites. Interval right inguinal lymphadenopathy. No other acute findings seen at the abdomen or pelvis. -- Denies any abdominal pain, nausea, vomiting. No tenderness on exam -Appreciate surgery input A-fib RVR H/O Afib Rate is currently controlled Continue metoprolol succinate 100 mg daily On Eliquis for anticoagulation Monitor and replete electrolytes as needed Chronic systolic CHF Severe aortic valve stenosis Echo done on 03/03/2024 shows EF of 65-69 % and severe aortic valve stenosis Monitor volume status closely Resume home diuretics as able Continue metoprolol CKD III Cr at baseline Monitor renal function Avoid nephrotoxic agents as able Hyponatremia Sodium levels improved to 134 Monitor Hypothyroidism Continue levothyroxine GERD Continue PPI Depression On paroxetine and Lamictal Anxiety On hydroxyzine Ambulatory dysfunction Mostly wheelchair-bound Can walk short distance with assistance PT OT as able DVT Px: Eliquis CODE STATUS Full code Admission and Anticipated Discharge Date Admission Date: July 17, 2025 Subjective Patient is seen and examined at bedside States having minimal shakiness/tremor today Leg erythema slowly improving Denies any significant pain today Denies any chest pain, dyspnea, dysuria, nausea, vomiting, abdominal pain No other complaints today Review of Systems Review of Systems: All systems reviewed & are unremarkable except as noted in Subjective Physical Exam Physical Exam: Physical Exam: Vitals signs as noted above General Appearance:Moderately built and nourished, no apparent distress Head: normocephalic, Atraumatic Eyes: normal inspection, EOMI Neck: supple, Trachea midline Respiratory/Chest: Normal breath sounds, CTA, No accessory muscle use Cardiovascular: Irregularly irregular, +murmur Abdomen/GI:Soft, Non tender, Bowel sounds present Extremities/Musculoskeletal:normal inspection, B/L LE erythema, warm, edema,+ leg ulcer Neurologic/Psych:AAOX3, grossly no focal neurological deficits Skin: normal color, warm Results & Data Results & Data Vital Signs (Past 12 Hours) Vital Signs Temp Pulse Resp BP Pulse Ox O2 Del Method O2 Flow Rate 07/19/25 11:27 36.9 C 93 H 17 96/63 L 96 Room Air 1 07/19/25 09:11 Nasal Cannula 2 07/19/25 07:05 36.7 C 83 18 103/69 98 Nasal Cannula 2 07/19/25 02:57 37 C 85 16 100/60 99 Nasal Cannula 1 Laboratory Results Short CBC 07/19/25 Range/Units 05:16 WBC 12.04 H (4.8-10.8) K/ul Hgb 10.2 L (12.0-16.0) g/dl Hct 31.4 L (37.0-47.0) % Plt Count 183 (130-400) K/uL BMP 07/19/25 05:16 Sodium 134 L Potassium 4.2 Chloride 106 Carbon Dioxide 24 BUN 24 H Creatinine 0.91 Glucose 123 H Calcium 8.7
[2025-07-19] MEDS: SODIUM CHLORIDE 0.9% 500 ML IV ONE (14:04)
--- NOTE | 2025-07-19 15:20 | Electrocardiogram Report ---
Test Reason : Blood Pressure : */* mmHG Vent. Rate : 91 BPM Atrial Rate : * BPM P-R Int : * ms QRS Dur : 78 ms QT Int : 368 ms P-R-T Axes : * 55 15 degrees QTcB Int : 452 ms Atrial fibrillation Abnormal ECG When compared with ECG of 17-Jul-2025 16:38, (unconfirmed) T wave amplitude has decreased in Anterior leads Confirmed by Pernell Couch ([id number]) on 07/19/2025 3:19:48 PM Referred By: [facility] Confirmed By: Pernell Couch
--- NOTE | 2025-07-19 15:22 | Electrocardiogram Report ---
Test Reason : Blood Pressure : */* mmHG Vent. Rate : 83 BPM Atrial Rate : * BPM P-R Int : * ms QRS Dur : 88 ms QT Int : 384 ms P-R-T Axes : * 44 3 degrees QTcB Int : 451 ms Atrial fibrillation Cannot rule out Anterior infarct , age undetermined Abnormal ECG When compared with ECG of 18-Jul-2025 06:20, (unconfirmed) No significant change was found Confirmed by Pernell Couch ([id number]) on 07/19/2025 3:22:30 PM Referred By: [facility] Confirmed By: Pernell Couch
[2025-07-19] MEDS: cefTRIAXone SODIUM 2,000 MG/50 ML BAG IV SCH (21:20)
[2025-07-20 05:47] LABS: Hematocrit (blood only) 31.4 % (37.0-47.0); Hemoglobin 10.0 g/dl (12.0-16.0); Mean Corpuscular Hemoglobin 28.3 pg (25.0-34.0); Mean Corpuscular Volume 89.0 fL (80.0-100.0); Platelet Count 205 K/uL (130-400); RDW Standard Deviation 48.2 fL (36.4-46.3); Red Blood Count 3.53 M/uL (4.20-5.40); White Blood Count 9.00 K/ul (4.8-10.8)
[2025-07-20 06:03] LABS: Anion Gap 5.0 (3-11); Blood Urea Nitrogen 17.0 mg/dl (6-23); Calcium 8.7 mg/dl (8.6-10.3); Carbon Dioxide 24.0 mmol/L (21-32); Chloride 104.0 mmol/L (98-107); Creatinine Clr Calc Pharmacy 49.1 ml/min; Glucose 96.0 mg/dl (70-99(Fasting)); Magnesium 1.8 mg/dl (1.7-2.4); Potassium 4.2 mmol/L (3.5-5.1); Sodium 133.0 mmol/L (136-145)
--- NOTE | 2025-07-20 07:25 | Electrocardiogram Report ---
Test Reason : Blood Pressure : */* mmHG Vent. Rate : 115 BPM Atrial Rate : * BPM P-R Int : * ms QRS Dur : 84 ms QT Int : 284 ms P-R-T Axes : * 41 21 degrees QTcB Int : 392 ms Atrial fibrillation with rapid ventricular response Abnormal ECG When compared with ECG of 15-Mar-2025 09:54, No significant change was found Confirmed by Pernell Couch ([id number]) on 07/20/2025 7:24:56 AM Referred By: [facility] Confirmed By: Pernell Couch
--- NOTE | 2025-07-20 13:09 | Hospitalist Progress Note ---
Date of Service July 20, 2025 Assessment & Plan (1) Sepsis: Plan: 84-year-old female with past med history significant for hypothyroidism, history of systolic CHF, nonrheumatic aortic valve stenosis, GERD, CKD stage IIIa, history of generalized weakness, history of lipodermatosclerosis of lower extremities, kyphosis of spine, osteoporosis, macular degeneration, postherpetic polyneuropathy, essential tremor, inguinal lymphadenopathy, depression, gait disturbance, history of COVID, history of MRSA screen positive, spinal stenosis of cervical region,, comes from [facility] for confusion and found to be in sepsis and UTI and possible lower extremity cellulitis. Patient is somewhat sleepy but alert and oriented x 3. Have to wake up frequently to ask questions. States feeling cold. Denies any headache. Denies runny nose or sore throat or cough. Denies chest pain or shortness of breath. Denies nausea. Denies abdominal pain. States normal bowel and bladder movements. Has some pain in the lower extremities. Says she is mostly wheelchair-bound. Currently not able to reach [facility]. Able to talk to her cousin. Her cousin's is power of fire regulator. As per cousin patient is mostly wheelchair-bound she can walk small distance with assistance. Has chronic knee pain. Patient is DNR but her power of fire regulator says okay to try for resuscitation for short period of time if there is chance of recovery. Sepsis Strep bacteremia--POA Possible lower extremity cellulitis Acute metabolic encephalopathy--POA Ruled out UTI H/O ESBL --CXR showed no signs of pneumonia --Blood Culture: 03/01: Strep agalactiae -Repeat blood cultures: Pending --Urine culture grew lactobacillus --ECHO: EF 65 to 70%. No regional wall motion abnormality. Left atrium severely dilated. Right atrium moderately dilated. Moderate valvular aortic stenosis. Mild mitral regurgitation, mild mitral stenosis. Moderate tricuspid regurgitation. Pulmonary artery systolic pressure estimated to be 70 mmHg. No evidence of valvular vegetation. --Lactic acidosis resolved with IV fluids -- Continue ertapenem, doxycycline #2 days >> transition to Rocephin, doxycycline --Continue wound care -- Infectious disease input pending IV fluids as needed May need MYRIAM Leukocytosis resolved, afebrile today Abnormal CT abdomen Concerning for possible acute cholecystitis--less likely --CT ABD:Possible acute cholecystitis versus gallbladder edema from the trace ascites. Interval right inguinal lymphadenopathy. No other acute findings seen at the abdomen or pelvis. -- Denies any abdominal pain, nausea, vomiting. No tenderness on exam -Appreciate surgery input A-fib RVR H/O Afib Rate is currently controlled Continue metoprolol succinate 100 mg daily On Eliquis for anticoagulation Monitor and replete electrolytes as needed Chronic systolic CHF Severe aortic valve stenosis Echo done on 03/03/2024 shows EF of 65-69 % and severe aortic valve stenosis Monitor volume status closely Resume home Lasix tomorrow Continue metoprolol CKD III Cr at baseline Monitor renal function Avoid nephrotoxic agents as able Hyponatremia Sodium 133 today Monitor Hypothyroidism Continue levothyroxine GERD Continue PPI Depression On paroxetine and Lamictal Anxiety On hydroxyzine Ambulatory dysfunction Mostly wheelchair-bound Can walk short distance with assistance PT OT as able DVT Px: Eliquis CODE STATUS Full code Disposition PT OT prior to discharge Admission and Anticipated Discharge Date Admission Date: July 17, 2025 Subjective Patient is seen and examined at bedside States having some leg pain today No other complaints Denies any chest pain, dyspnea, dysuria, nausea, vomiting, abdominal pain Review of Systems Review of Systems: All systems reviewed & are unremarkable except as noted in Subjective Physical Exam Physical Exam: Physical Exam: Vitals signs as noted above General Appearance:Moderately built and nourished, no apparent distress Head: normocephalic, Atraumatic Eyes: normal inspection, EOMI Neck: supple, Trachea midline Respiratory/Chest: Normal breath sounds, CTA, No accessory muscle use Cardiovascular: Irregularly irregular, +murmur Abdomen/GI:Soft, Non tender, Bowel sounds present Extremities/Musculoskeletal:normal inspection, B/L LE erythema, warm, edema,+ leg ulcer Neurologic/Psych:AAOX3, grossly no focal neurological deficits Skin: normal color, warm Results & Data Results & Data Vital Signs (Past 12 Hours) Vital Signs Temp Pulse Resp BP Pulse Ox O2 Del Method O2 Flow Rate 07/20/25 11:40 37.2 C 85 20 101/67 97 Nasal Cannula 1 07/20/25 07:08 37 C 91 H 20 104/67 98 Room Air 07/20/25 03:00 36.6 C 98 H 18 100/63 98 Nasal Cannula 2 Laboratory Results Short CBC 07/20/25 Range/Units 05:26 WBC 9.00 (4.8-10.8) K/ul Hgb 10.0 L (12.0-16.0) g/dl Hct 31.4 L (37.0-47.0) % Plt Count 205 (130-400) K/uL [facility] 07/20/25 05:26 Sodium 133 L Potassium 4.2 Chloride 104 Carbon Dioxide 24 BUN 17 Creatinine 0.75 Glucose 96 Calcium 8.7
[2025-07-21] MEDS: FUROSEMIDE 20 MG TAB PO SCH (10:53)
--- NOTE | 2025-07-21 12:44 | Hospitalist Progress Note ---
Date of Service July 21, 2025 Assessment & Plan (1) Sepsis: Plan: 84-year-old female with past med history significant for hypothyroidism, history of systolic CHF, nonrheumatic aortic valve stenosis, GERD, CKD stage IIIa, history of generalized weakness, history of lipodermatosclerosis of lower extremities, kyphosis of spine, osteoporosis, macular degeneration, postherpetic polyneuropathy, essential tremor, inguinal lymphadenopathy, depression, gait disturbance, history of COVID, history of MRSA screen positive, spinal stenosis of cervical region,, comes from [facility] for confusion and found to be in sepsis and UTI and possible lower extremity cellulitis. Patient is somewhat sleepy but alert and oriented x 3. Have to wake up frequently to ask questions. States feeling cold. Denies any headache. Denies runny nose or sore throat or cough. Denies chest pain or shortness of breath. Denies nausea. Denies abdominal pain. States normal bowel and bladder movements. Has some pain in the lower extremities. Says she is mostly wheelchair-bound. Currently not able to reach [facility]. Able to talk to her cousin. Her cousin's is power of collections attorney. As per cousin patient is mostly wheelchair-bound she can walk small distance with assistance. Has chronic knee pain. Patient is DNR but her power of collections attorney says okay to try for resuscitation for short period of time if there is chance of recovery. Sepsis Strep bacteremia--POA Possible lower extremity cellulitis Acute metabolic encephalopathy--POA Ruled out UTI H/O ESBL --CXR showed no signs of pneumonia --Blood Culture: 03/01: Strep agalactiae -Repeat blood cultures: Negative to date --Urine culture grew lactobacillus --ECHO: EF 65 to 70%. No regional wall motion abnormality. Left atrium severely dilated. Right atrium moderately dilated. Moderate valvular aortic stenosis. Mild mitral regurgitation, mild mitral stenosis. Moderate tricuspid regurgitation. Pulmonary artery systolic pressure estimated to be 70 mmHg. No evidence of valvular vegetation. --Lactic acidosis resolved with IV fluids -- Continue ertapenem, doxycycline #2 days >> transition to Rocephin, doxycycline -- Infectious disease input-- pending IV fluids as needed May need MYRIAM Continue current management for now until ID evaluation Continue wound care Abnormal CT abdomen Concerning for possible acute cholecystitis--less likely --CT ABD:Possible acute cholecystitis versus gallbladder edema from the trace ascites. Interval right inguinal lymphadenopathy. No other acute findings seen at the abdomen or pelvis. -- Denies any abdominal pain, nausea, vomiting. No tenderness on exam -Appreciate surgery input A-fib RVR H/O Afib Rate is currently controlled Continue metoprolol succinate 100 mg daily On Eliquis for anticoagulation Monitor and replete electrolytes as needed Chronic systolic CHF Severe aortic valve stenosis Echo done on 03/03/2024 shows EF of 65-69 % and severe aortic valve stenosis Monitor volume status closely Continue home Lasix to help with edema Continue metoprolol CKD III Cr at baseline Monitor renal function Avoid nephrotoxic agents as able Hyponatremia Last sodium level 133 Monitor Hypothyroidism Continue levothyroxine GERD Continue PPI Depression On paroxetine and Lamictal Anxiety On hydroxyzine Ambulatory dysfunction Mostly wheelchair-bound Can walk short distance with assistance PT OT eval was able DVT Px: Eliquis CODE STATUS Full code Disposition May need SNF Admission and Anticipated Discharge Date Admission Date: July 17, 2025 Subjective Patient is seen and examined at bedside No new complaints Still has right leg pain requiring pain medications Repeat blood cultures negative to date Denies any chest pain, dyspnea, dysuria, nausea, vomiting, abdominal pain Review of Systems Review of Systems: All systems reviewed & are unremarkable except as noted in Subjective Physical Exam Physical Exam: Physical Exam: Vitals signs as noted above General Appearance:Moderately built and nourished, no apparent distress Head: normocephalic, Atraumatic Eyes: normal inspection, EOMI Neck: supple, Trachea midline Respiratory/Chest: Normal breath sounds, CTA, No accessory muscle use Cardiovascular: Irregularly irregular, +murmur Abdomen/GI:Soft, Non tender, Bowel sounds present Extremities/Musculoskeletal:normal inspection, B/L LE erythema, warm, edema,+ leg ulcer Neurologic/Psych:AAOX3, grossly no focal neurological deficits Skin: normal color, warm Results & Data Results & Data Vital Signs (Past 12 Hours) Vital Signs Temp Pulse Resp BP Pulse Ox O2 Del Method O2 Flow Rate 07/21/25 10:59 36.7 C 88 20 105/66 98 Room Air 07/21/25 10:00 Nasal Cannula 1 07/21/25 07:12 36.6 C 84 19 108/72 100 Room Air 07/21/25 03:26 36.5 C 88 18 116/77 92 Nasal Cannula 2
[2025-07-22 06:35] LABS: Hematocrit (blood only) 31.2 % (37.0-47.0); Hemoglobin 10.3 g/dl (12.0-16.0); Mean Corpuscular Hemoglobin 28.6 pg (25.0-34.0); Mean Corpuscular Volume 86.7 fL (80.0-100.0); Platelet Count 272 K/uL (130-400); RDW Standard Deviation 46.7 fL (36.4-46.3); Red Blood Count 3.60 M/uL (4.20-5.40); White Blood Count 9.73 K/ul (4.8-10.8)
[2025-07-22 07:17] LABS: Anion Gap 7.0 (3-11); Blood Urea Nitrogen 17.0 mg/dl (6-23); Calcium 8.9 mg/dl (8.6-10.3); Carbon Dioxide 28.0 mmol/L (21-32); Chloride 102.0 mmol/L (98-107); Creatinine Clr Calc Pharmacy 43.9 ml/min; Glucose 105.0 mg/dl (70-99(Fasting)); Magnesium 1.6 mg/dl (1.7-2.4); Potassium 4.2 mmol/L (3.5-5.1); Sodium 137.0 mmol/L (136-145)
[2025-07-22] MEDS: MAGNESIUM SULFATE / D5W 1 GM/100 ML BAG IV ONE (12:16)
--- NOTE | 2025-07-22 15:03 | Hospitalist Progress Note ---
Date of Service July 22, 2025 Assessment & Plan (1) Sepsis: Plan: 84-year-old female with past med history significant for hypothyroidism, history of systolic CHF, nonrheumatic aortic valve stenosis, GERD, CKD stage IIIa, history of generalized weakness, history of lipodermatosclerosis of lower extremities, kyphosis of spine, osteoporosis, macular degeneration, postherpetic polyneuropathy, essential tremor, inguinal lymphadenopathy, depression, gait disturbance, history of COVID, history of MRSA screen positive, spinal stenosis of cervical region,, comes from [facility] for confusion and found to be in sepsis and UTI and possible lower extremity cellulitis. Patient is somewhat sleepy but alert and oriented x 3. Have to wake up frequently to ask questions. States feeling cold. Denies any headache. Denies runny nose or sore throat or cough. Denies chest pain or shortness of breath. Denies nausea. Denies abdominal pain. States normal bowel and bladder movements. Has some pain in the lower extremities. Says she is mostly wheelchair-bound. Currently not able to reach assisted. Able to talk to her cousin. Her cousin's is power of contract attorney. As per cousin patient is mostly wheelchair-bound she can walk small distance with assistance. Has chronic knee pain. Patient is DNR but her power of contract attorney says okay to try for resuscitation for short period of time if there is chance of recovery. Sepsis Strep bacteremia--POA Possible lower extremity cellulitis Acute metabolic encephalopathy--POA Ruled out UTI H/O ESBL --CXR showed no signs of pneumonia --Blood Culture: 03/01: Strep agalactiae -Repeat blood cultures: Negative to date --Urine culture grew lactobacillus --ECHO: EF 65 to 70%. No regional wall motion abnormality. Left atrium severely dilated. Right atrium moderately dilated. Moderate valvular aortic stenosis. Mild mitral regurgitation, mild mitral stenosis. Moderate tricuspid regurgitation. Pulmonary artery systolic pressure estimated to be 70 mmHg. No evidence of valvular vegetation. --Lactic acidosis resolved with IV fluids -- Continue ertapenem, doxycycline #2 days >> transition to Rocephin, doxycycline -- Infectious disease input-- pending --May need MYRIAM --PT OT eval Abnormal CT abdomen Concerning for possible acute cholecystitis--less likely --CT ABD:Possible acute cholecystitis versus gallbladder edema from the trace ascites. Interval right inguinal lymphadenopathy. No other acute findings seen at the abdomen or pelvis. -- Denies any abdominal pain, nausea, vomiting. No tenderness on exam -Appreciate surgery input A-fib RVR H/O Afib Rate is currently controlled Continue metoprolol succinate 100 mg daily On Eliquis for anticoagulation Monitor and replete electrolytes as needed Chronic systolic CHF Severe aortic valve stenosis Echo done on 03/03/2024 shows EF of 65-69 % and severe aortic valve stenosis Monitor volume status closely Continue home Lasix, metoprolol CKD III Cr at baseline Monitor renal function Avoid nephrotoxic agents as able Hyponatremia Hypomagnesemia Sodium levels improved to 137 Replace and monitor Hypothyroidism Continue levothyroxine GERD Continue PPI Depression On paroxetine and Lamictal Anxiety On hydroxyzine Ambulatory dysfunction Mostly wheelchair-bound Can walk short distance with assistance PT OT eval requested DVT Px: Eliquis CODE STATUS Full code Disposition May need SNF Admission and Anticipated Discharge Date Admission Date: July 17, 2025 Subjective Patient is seen and examined at bedside No significant change when compared to yesterday Continues to complain of leg pain Infectious disease consult pending Denies any chest pain, dyspnea, dysuria, nausea, vomiting, abdominal pain Review of Systems Review of Systems: All systems reviewed & are unremarkable except as noted in Subjective Physical Exam Physical Exam: Physical Exam: Vitals signs as noted above General Appearance:Moderately built and nourished, no apparent distress Head: normocephalic, Atraumatic Eyes: normal inspection, EOMI Neck: supple, Trachea midline Respiratory/Chest: Normal breath sounds, CTA, No accessory muscle use Cardiovascular: Irregularly irregular, +murmur Abdomen/GI:Soft, Non tender, Bowel sounds present Extremities/Musculoskeletal:normal inspection, B/L LE erythema, warm, edema,+ leg ulcer Neurologic/Psych:AAOX3, grossly no focal neurological deficits Skin: normal color, warm Results & Data Results & Data Vital Signs (Past 12 Hours) Vital Signs Temp Pulse Pulse Resp BP Pulse Ox O2 Del Method 07/22/25 11:29 36.4 C L 84 16 109/68 84 L Room Air 07/22/25 11:00 94 H 07/22/25 08:21 37.0 C 85 16 105/66 92 Room Air 07/22/25 03:05 37.2 C 99 H 18 108/62 90 Room Air Laboratory Results Short CBC 07/22/25 Range/Units 05:18 WBC 9.73 (4.8-10.8) K/ul Hgb 10.3 L (12.0-16.0) g/dl Hct 31.2 L (37.0-47.0) % Plt Count 272 (130-400) K/uL [facility] 07/22/25 05:18 Sodium 137 Potassium 4.2 Chloride 102 Carbon Dioxide 28 BUN 17 Creatinine 0.84 Glucose 105 H Calcium 8.9
--- NOTE | 2025-07-22 17:38 | Infectious Disease Consult ---
Date of Service July 22, 2025 Telehealth Information I performed this visit using a real-time telehealth connection between my location and the patients location ([facility]). After connecting through interactive tele-video, patient was identified by name and date of and/or wristband check.Patient (or authorized healthcare advertising sales representative) was informed that this was a telemedicine visit and it was being conducted confidentially over secure lines. My office door was closed and no o ne else was present in the room with me.Patient (or authorized healthcare advertising sales representative) provided consent to proceed with the visit, expressed an understanding of privacy and security of the telemedicine visit, and gave permission to have a hospital advertising sales representative in the room in order to assist with the visit and to conduct portions of the visit, as needed. I informed the patient (or authorized healthcare advertising sales representative) that I reviewed their record and presented the opportunity for them to ask any questions regarding the visit today. The patient agreed to participate. Assessment & Plan (1) Sepsis: Plan: I am concerned that the patient's bacteremia is from a LE source. As far as I can tell, we do not have advanced imaging or a surgical consult (the previous surgery consultation was for a different issue). I recommend order these so that we can find out if the patient needs any more source control. Antibiotics can be de-escalated to ceftriaxone 2g q24h monotherapy. All orders are deferred to the primary/requesting service. All dosing is deferred to [facility] pharmacy (I do not have an ID pharmacist available at this time). Recommendations were communicated to and/or discussed with the primary/requesting service. These recommendations are not final. For subsequent recommendations, use the on- call schedule to find out which ID provider is covering your facility. History of Present Illness History of Present Illness The patient was admitted for confusion. BCX grew GBS. Allergies Allergy/AdvReac Type Severity Reaction Status Date / Time No Known Allergies Allergy Verified 07/17/25 19:11 Home Medications Medication Instructions Recorded Confirmed Type hydroxyzine HCl 10 mg tablet 10 mg PO BID 01/12/24 07/17/25 History hydroxyzine HCl 10 mg tablet 20 mg PO HS 01/12/24 07/17/25 History lamotrigine 200 mg tablet 200 mg PO HS 01/12/24 07/17/25 History levothyroxine 75 mcg tablet 75 mcg PO DAILY 01/12/24 07/17/25 History omeprazole 40 mg capsule,delayed 40 mg PO DAILYBB 01/12/24 07/17/25 History release oxybutynin chloride 5 mg tablet 2.5 mg PO BID 01/12/24 07/17/25 History paroxetine HCl 30 mg tablet 30 mg PO HS 01/12/24 07/17/25 History vit C 250 mg-vit E 90 mg-zinc 40 1 tab PO BID 01/12/24 07/17/25 History mg-copper 1 by-unjibv-hsxejy capsule (PreserVision AREDS-2) hydroxyzine HCl 10 mg tablet 10 - 20 mg PO DIRECTED PRN 01/13/24 07/17/25 History Anxiety/Mood loperamide 2 mg capsule (Imodium 2 - 4 mg PO DIRECTED 09/30/24 07/17/25 History A-D) melatonin 3 mg disintegrating 3 mg PO HS PRN Insomnia 09/30/24 07/17/25 History tablet furosemide 20 mg tablet (Lasix) 20 mg PO Q OTHER DAY #30 tabs 10/04/24 07/17/25 Rx multivitamin (Daily-Priscila tablet) 1 tab PO DAILY 03/15/25 07/17/25 History apixaban 5 mg tablet (Eliquis) 5 mg PO BID #60 tabs 03/17/25 07/17/25 Rx calcium 500 mg (as 1 tab PO DAILY 04/30/25 07/17/25 History carbonate)-vitamin D3 5 mcg (200 unit) tablet (Oyster Shell Calcium-Vitamin D3) metoprolol succinate 100 mg 100 mg PO QAM 04/30/25 07/17/25 History tablet,extended release 24 hr tramadol 50 mg tablet 50 mg PO BID PRN pain #11 tabs 05/22/25 07/17/25 Rx naproxen sodium 220 mg tablet 220 mg PO BID PRN Pain 07/17/25 07/17/25 History Patient History Medical History HTN (hypertension) Osteoarthritis of right knee Stasis dermatitis Elevated liver enzymes Degenerative arthritis Anxiety Surgical History History of hip surgery 02/2024 - right femur fracture s/p intermedullary anai S/P cataract surgery Family History Father , age 76 of metastatic prostate cancer Cancer Prostate cancer Heart disease Mother , age 93 Rheumatoid arthritis Social History Smoking Status: Never smoker Second Hand Exposure: No; Do You Dip or Chew Tobacco: No; Tobacco Cessation Education Requested by Patient: No Hx Alcohol Use: No Hx Substance Use: No Preferred Language: Korean Communication Ability: Effective Machine Group Leader Required: No Beliefs That Will Affect Care: None marital status: Single Current Living Situation: Personal Care Facility Current Living Situation Comment: [facility] current occupational status: retired 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 age 57 How many Children do You have: 0 Other Information That Helps Us Care for You: No Feels Safe at Home: Yes Safety Concerns: Feels Safe At This Time Assistive Devices: Wheelchair Review of Systems As the time of my consultation, the patient offered no complaints (noted that she was felt to have confusion at the time of admission - she seemed to be less confused on my exam) Physical Exam Vitals: see EMR Exam limited due to constraints of telemedicine Gen/Constitutional: appears at stated age, NAD, nontoxic Head: AT, NC Eyes: sclera anicteric, no conjunctival injection ENT: MMM, trachea midline Card: appears to be well-perfused Resp: not tachypneic, nml effort, symmetric chest rise, no accessory muscle use Derm: no visible diaphoresis, no visible rash, no visible jaundice Results & Data Vital Signs (Past 12 Hours) Vital Signs Temp Pulse Pulse Resp BP Pulse Ox O2 Del Method 07/22/25 16:55 36.3 C L 68 16 99/61 L 96 Room Air 07/22/25 11:29 36.4 C L 84 16 109/68 84 L Room Air 07/22/25 11:00 94 H 07/22/25 08:21 37.0 C 85 16 105/66 92 Room Air Laboratory Results SEE EMR Diagnostic Findings [facility] [address] [place] [address] / Director: Anais Larios M.D. Clinical Laboratory Report Name: JAMES AMOS Acct: [id number] Status: ADM [place] : 1940 [facility] Date: 07/17/25 Age: 84 Sex: F Dis Date: Loc: [address] Rm/Bed: W252-1 Spec: [id number] Collected: 07/17/25 Received: 07/17/[address]: Miguel Angel Woo DO Source: Blood OV Order: Ordered: Blood Culture Procedure Result Verified Site Blood Culture Aerobic Final 07/20/25 Organism 1 Strep agalactiae (group B) Sens Sensitivities to Follow Phoned positive Blood Culture Gram Stain report to MALACHI ORELLANA on 07/18/25 at 0508 [place] [id number]. [place] [id number]. Str ag GpB RX M.I.C. --- --------- Ampicillin S 0.12 Cefepime S <=0.25 Cefotaxime S <=0.25 Ceftriaxone S <=0.25 Chloramphenicol S 4 Clindamycin S <=0.06 Erythromycin S <=0.06 Penicillin S 0.06 Vancomycin S 0.5 S = SENSITIVE I = INTERMEDIATE R = RESISTANT Blood Culture Anaerobic Final 07/20/25 Organism 1 Strep agalactiae (group B) Sens No Sensitivities to Follow Blood Culture PCR Panel If viewing in EMR, results available under LAB Serology tab. Name: JENNIFER AMOSDERRICK Villa : 1940 PAGE 1 Printed: 07/22/25 1854 END OF REPORT
--- NOTE | 2025-07-23 15:35 | Hospitalist Progress Note ---
Date of Service July 23, 2025 Assessment & Plan (1) Sepsis: Plan: 84-year-old female with past med history significant for hypothyroidism, history of systolic CHF, nonrheumatic aortic valve stenosis, GERD, CKD stage IIIa, history of generalized weakness, history of lipodermatosclerosis of lower extremities, kyphosis of spine, osteoporosis, macular degeneration, postherpetic polyneuropathy, essential tremor, inguinal lymphadenopathy, depression, gait disturbance, history of COVID, history of MRSA screen positive, spinal stenosis of cervical region,, comes from [facility] for confusion and found to be in sepsis and UTI and possible lower extremity cellulitis. Patient is somewhat sleepy but alert and oriented x 3. Have to wake up frequently to ask questions. States feeling cold. Denies any headache. Denies runny nose or sore throat or cough. Denies chest pain or shortness of breath. Denies nausea. Denies abdominal pain. States normal bowel and bladder movements. Has some pain in the lower extremities. Says she is mostly wheelchair-bound. Currently not able to reach residential. Able to talk to her cousin. Her cousin's is power of tax attorney. As per cousin patient is mostly wheelchair-bound she can walk small distance with assistance. Has chronic knee pain. Patient is DNR but her power of tax attorney says okay to try for resuscitation for short period of time if there is chance of recovery. Sepsis Strep bacteremia--POA Possible lower extremity cellulitis Acute metabolic encephalopathy--POA Ruled out UTI H/O ESBL --CXR showed no signs of pneumonia --Blood Culture: 03/01: Strep agalactiae -Repeat blood cultures: Negative to date --Urine culture grew lactobacillus --ECHO: EF 65 to 70%. No regional wall motion abnormality. Left atrium severely dilated. Right atrium moderately dilated. Moderate valvular aortic stenosis. Mild mitral regurgitation, mild mitral stenosis. Moderate tricuspid regurgitation. Pulmonary artery systolic pressure estimated to be 70 mmHg. No evidence of valvular vegetation. --Lactic acidosis resolved with IV fluids -- Continue ertapenem, doxycycline #2 days >> transition to Rocephin, doxycycline -- Discussed with infectious disease on 07/23/2025: Recommends to involve surgery for leg wounds before recommending final antibiotics Continue wound care Repeat blood cultures remain negative Likely will need 2-week course of IV antibiotics Await for podiatry input PT OT prior to discharge Abnormal CT abdomen Concerning for possible acute cholecystitis--less likely --CT ABD:Possible acute cholecystitis versus gallbladder edema from the trace ascites. Interval right inguinal lymphadenopathy. No other acute findings seen at the abdomen or pelvis. -- Denies any abdominal pain, nausea, vomiting. No tenderness on exam -Appreciate surgery input A-fib RVR H/O Afib Rate is currently controlled Continue metoprolol succinate 100 mg daily On Eliquis for anticoagulation Monitor and replete electrolytes as needed Chronic systolic CHF Severe aortic valve stenosis Echo done on 03/03/2024 shows EF of 65-69 % and severe aortic valve stenosis Monitor volume status closely Continue home Lasix, metoprolol CKD III Cr at baseline Monitor renal function Avoid nephrotoxic agents as able Hyponatremia Hypomagnesemia Sodium levels improved to 137 Replace and monitor Hypothyroidism Continue levothyroxine GERD Continue PPI Depression On paroxetine and Lamictal Anxiety On hydroxyzine Ambulatory dysfunction Mostly wheelchair-bound Can walk short distance with assistance PT OT eval requested DVT Px: Eliquis CODE STATUS Full code Disposition May need SNF Admission and Anticipated Discharge Date Admission Date: July 17, 2025 Subjective Patient is seen and examined at bedside Had dressing change of her leg wounds today No new complaints but continues to have neck pain Discussed with infectious disease today Denies any chest pain, dyspnea, dysuria, nausea, vomiting, abdominal pain Review of Systems Review of Systems: All systems reviewed & are unremarkable except as noted in Subjective Physical Exam Physical Exam: Physical Exam: Vitals signs as noted above General Appearance:Moderately built and nourished, no apparent distress Head: normocephalic, Atraumatic Eyes: normal inspection, EOMI Neck: supple, Trachea midline Respiratory/Chest: Normal breath sounds, CTA, No accessory muscle use Cardiovascular: Irregularly irregular, +murmur Abdomen/GI:Soft, Non tender, Bowel sounds present Extremities/Musculoskeletal:normal inspection, B/L LE erythema, warm, edema,+ leg wound in dressing Neurologic/Psych:AAOX3, grossly no focal neurological deficits Skin: normal color, warm Results & Data Results & Data Vital Signs (Past 12 Hours) Vital Signs Temp Pulse Pulse Resp BP Pulse Ox O2 Del Method 07/23/25 11:08 36.7 C 71 16 105/54 L 92 Room Air 07/23/25 07:27 100 H 07/23/25 07:13 37 C 95 H 16 103/64 92 Room Air
--- NOTE | 2025-07-23 16:42 | Podiatry Consultation ---
Date of Consultation July 23, 2025 History of Present Illness Reason for Consultation: leg wounds Attending Physician: Mitch Anthony MD Allergies Allergy/AdvReac Type Severity Reaction Status Date / Time No Known Allergies Allergy Verified 07/17/25 19:11 Home Medications Medication Instructions Recorded Confirmed Type hydroxyzine HCl 10 mg tablet 10 mg PO BID 01/12/24 07/17/25 History hydroxyzine HCl 10 mg tablet 20 mg PO HS 01/12/24 07/17/25 History lamotrigine 200 mg tablet 200 mg PO HS 01/12/24 07/17/25 History levothyroxine 75 mcg tablet 75 mcg PO DAILY 01/12/24 07/17/25 History omeprazole 40 mg capsule,delayed 40 mg PO DAILYBB 01/12/24 07/17/25 History release oxybutynin chloride 5 mg tablet 2.5 mg PO BID 01/12/24 07/17/25 History paroxetine HCl 30 mg tablet 30 mg PO HS 01/12/24 07/17/25 History vit C 250 mg-vit E 90 mg-zinc 40 1 tab PO BID 01/12/24 07/17/25 History mg-copper 1 [id number] capsule (PreserVision AREDS-2) hydroxyzine HCl 10 mg tablet 10 - 20 mg PO DIRECTED PRN 01/13/24 07/17/25 History Anxiety/Mood loperamide 2 mg capsule (Imodium 2 - 4 mg PO DIRECTED 09/30/24 07/17/25 History A-D) melatonin 3 mg disintegrating 3 mg PO HS PRN Insomnia 09/30/24 07/17/25 History tablet furosemide 20 mg tablet (Lasix) 20 mg PO Q OTHER DAY #30 tabs 10/04/24 07/17/25 Rx multivitamin (Daily-Priscila tablet) 1 tab PO DAILY 03/15/25 07/17/25 History apixaban 5 mg tablet (Eliquis) 5 mg PO BID #60 tabs 03/17/25 07/17/25 Rx calcium 500 mg (as 1 tab PO DAILY 04/30/25 07/17/25 History carbonate)-vitamin D3 5 mcg (200 unit) tablet (Oyster Shell Calcium-Vitamin D3) metoprolol succinate 100 mg 100 mg PO QAM 04/30/25 07/17/25 History tablet,extended release 24 hr tramadol 50 mg tablet 50 mg PO BID PRN pain #11 tabs 05/22/25 07/17/25 Rx naproxen sodium 220 mg tablet 220 mg PO BID PRN Pain 07/17/25 07/17/25 History Patient History Medical History HTN (hypertension) Osteoarthritis of right knee Stasis dermatitis Elevated liver enzymes Degenerative arthritis Anxiety Surgical History History of hip surgery 02/2024 - right femur fracture s/p intermedullary anai S/P cataract surgery Family History Father , age 76 of metastatic prostate cancer Cancer Prostate cancer Heart disease Mother , age 93 Rheumatoid arthritis Social History Smoking Status: Never smoker Second Hand Exposure: No; Do You Dip or Chew Tobacco: No; Tobacco Cessation Education Requested by Patient: No Hx Alcohol Use: No Hx Substance Use: No Preferred Language: Bengali Communication Ability: Effective Aircraft Structural Fitter Required: No Beliefs That Will Affect Care: None marital status: Single Current Living Situation: Personal Care Facility Current Living Situation Comment: [facility] current occupational status: retired 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57 How many Children do You have: 0 Other Information That Helps Us Care for You: No Feels Safe at Home: Yes Safety Concerns: Feels Safe At This Time Assistive Devices: Wheelchair Results & Data Vital Signs (Past 12 Hours) Vital Signs Temp Pulse Pulse Resp BP Pulse Ox O2 Del Method 07/23/25 11:08 36.7 C 71 16 105/54 L 92 Room Air 07/23/25 07:27 100 H 07/23/25 07:13 37 C 95 H 16 103/64 92 Room Air PG Care Time/CCT Total # of Minutes Spent Total Time Spent with Patient: Total time spent is greater than 50% in coordination of care (as documented) at patient's floor/unit and/or counseling patient: Coding
[2025-07-24 06:50] LABS: Hematocrit (blood only) 30.9 % (37.0-47.0); Hemoglobin 10.2 g/dl (12.0-16.0); Mean Corpuscular Hemoglobin 28.8 pg (25.0-34.0); Mean Corpuscular Volume 87.3 fL (80.0-100.0); Platelet Count 341 K/uL (130-400); RDW Standard Deviation 47.1 fL (36.4-46.3); Red Blood Count 3.54 M/uL (4.20-5.40); White Blood Count 7.30 K/ul (4.8-10.8)
[2025-07-24 07:21] LABS: Anion Gap 6.0 (3-11); Blood Urea Nitrogen 15.0 mg/dl (6-23); Calcium 8.8 mg/dl (8.6-10.3); Carbon Dioxide 30.0 mmol/L (21-32); Chloride 103.0 mmol/L (98-107); Creatinine Clr Calc Pharmacy 41.1 ml/min; Glucose 100.0 mg/dl (70-99(Fasting)); Magnesium 1.7 mg/dl (1.7-2.4); Potassium 4.0 mmol/L (3.5-5.1); Sodium 139.0 mmol/L (136-145)
--- NOTE | 2025-07-24 09:42 | Hospitalist Progress Note ---
Date of Service July 24, 2025 Assessment & Plan (1) Sepsis: Plan: 84-year-old woman with PMH of hypothyroidism, systolic CHF, nonrheumatic aortic valve stenosis, GERD, CKD stage IIIa, history of generalized weakness, history of lipodermatosclerosis of lower extremities, kyphosis of spine, osteoporosis, macular degeneration, postherpetic polyneuropathy, essential tremor, inguinal lymphadenopathy, depression, gait disturbance, history of COVID, history of MRSA screen positive, spinal stenosis of cervical region, comes from [facility] for confusion and found to be in sepsis and lower extremity cellulitis. Mostly wheelchair-bound at baseline. Sepsis Strep bacteremia--POA Right lower extremity cellulitis Acute metabolic encephalopathy--POA H/O ESBL CXR showed no signs of pneumonia Blood Culture: 03/01: Strep agalactiae Repeat blood cultures: Negative to date Urine culture grew lactobacillus ECHO: EF 65 to 70%. No regional wall motion abnormality. Left atrium severely dilated. Right atrium moderately dilated. Moderate valvular aortic stenosis. Mild mitral regurgitation, mild mitral stenosis. Moderate tricuspid regurgitation. Pulmonary artery systolic pressure estimated to be 70 mmHg. No evidence of valvular vegetation. Lactic acidosis resolved with IV fluids Was initially on ertapenem, doxycycline and then transitioned to Rocephin, doxycycline ID consulted. Will follow up ID today about final antibiotics recs Continue wound care Repeat blood cultures remain negative Continue PT/OT. SNF recommended Abnormal CT abdomen --CT ABD:Possible acute cholecystitis versus gallbladder edema from the trace ascites. Interval right inguinal lymphadenopathy. No other acute findings seen at the abdomen or pelvis. Denies any abdominal pain, nausea, vomiting. No tenderness on exam Surgery input noted A-fib RVR H/O Afib Rate is currently controlled Continue metoprolol succinate 100 mg daily On Eliquis for anticoagulation Monitor and replete electrolytes as needed Chronic systolic CHF Severe aortic valve stenosis Echo done on 03/03/2024 shows EF of 65-69 % and severe aortic valve stenosis Monitor volume status closely Continue home Lasix, metoprolol CKD III Cr at baseline Monitor renal function Avoid nephrotoxic agents as able Hypothyroidism Continue levothyroxine GERD Continue PPI Depression On paroxetine and Lamictal Anxiety On hydroxyzine prn Ambulatory dysfunction Mostly wheelchair-bound Can walk short distance with assistance PT OT eval noted DVT Px:Eliquis CODE STATUS:Full code I spent a total of 50 minutes coordinating, documenting and providing care for this patient excluding time spent in performance of separately billed services Admission and Anticipated Discharge Date Admission Date: July 17, 2025 Subjective Patient seen and examined Reports RLE pain at wound site Has not new complaints Physical Exam Constitutional: + well hydrated; no acute distress Eyes: PERRL, conjunctivae normal, anicteric sclerae ENMT: external ear and nose normal, oropharynx normal Respiratory: normal respiratory effort, lungs clear to auscultation Cardiovascular: Rate/Rhythm: + irregularly irregular Gastrointestinal (Abdomen): normal bowel sounds, soft, nontender, no hepatosp lenomegaly Musculoskeletal: Dressing over RLE wound Neurologic: PERRL, EOMI, accommodation nl, no face palsy, no dysarthria Results & Data Results & Data Vital Signs (Past 12 Hours) Vital Signs Temp Pulse Pulse Resp BP BP Pulse Ox 07/24/25 08:09 36.5 C 74 20 115/69 95 07/24/25 04:22 36.5 C 82 18 104/69 92 07/23/25 23:52 36.8 C 97 H 18 108/66 94 07/23/25 22:02 93 H O2 Del Method 07/24/25 08:09 Room Air 07/24/25 04:22 Room Air 07/23/25 23:52 Room Air 07/23/25 22:02 Laboratory Results Abnormal lab results 07/24/25 Range/Units 05:28 RBC 3.54 L (4.20-5.40) M/uL Hgb 10.2 L (12.0-16.0) g/dl Hct 30.9 L (37.0-47.0) % RDW Std Deviation 47.1 H (36.4-46.3) fL RDW Coeff of Benita 14.6 H (11.5-14.5) % MPV 8.9 L (9.4-12.4) fL Glucose 100 H (70-99(Fasting)) mg/dl
--- NOTE | 2025-07-24 12:58 | Podiatry Consultation ---
Date of Consultation July 24, 2025 Assessment & Plan (1) Venous stasis dermatitis of both lower extremities: (2) Venous stasis ulcer of right thigh limited to breakdown of skin: Varicose vein presence: unspecified whether present Qualified Cod e(s): I83.011 - Varicose veins of right lower extremity with ulcer of thigh; L97.111 - Non-pressure chronic ulcer of right thigh limited to breakdown of skin Plan Resolving venous stasis ulceration to the right lateral leg: Right lateral leg wound has shown significant improvement over a short period of time with antibiotic therapy, dressing changes and elevation of the limb. - Agree with recommendations from wound care for every other day dressing change to the right lateral leg cleansing with normal sterile saline followed by application of Aquacel Ag and an Optifoam dressing. - No indication for surgical debridement. No indication for advanced imaging studies from a podiatry standpoint. - Avoid sitting with feet in a dependent position for an extended period of time. - After talking with patient regarding limited ambulatory status and need for every other day dressing change I believe she would benefit from discharge to SNF for ongoing wound care and transition from inpatient status. Thank for consulting podiatry to aid in the care of this patient. Recommend continued home dressing changes as above and follow-up in the wound care center within 2 weeks of discharge. History of Present Illness Reason for Consultation: Right lateral leg wound Attending Physician: Earnestine Nance MD History of Present Illness 84-year-old female with past medical history significant for bilateral lower extremity venous insufficiency, bilateral lower extremity peripheral vascular disease with most recent vascular studies in chart February 2025 showing primarily monophasic arterial waveforms bilateral, CHF, aortic valve stenosis, GERD, CKD stage III. Patient is primarily wheelchair-bound however she is able to ambulate for short distances with assistance. Podiatry consulted to evaluate ulceration of the right lateral leg. Patient seen resting comfortably in hospital bed. Dressing in place to the right lateral leg with Aquacel Ag and a bordered foam dressing. Denies pain to the right leg at baseline but reports pain with dressing changes. Denies nausea vomiting fever chills. Allergies Allergy/AdvReac Type Severity Reaction Status Date / Time No Known Allergies Allergy Verified 07/17/25 19:11 Home Medications Medication Instructions Recorded Confirmed Type hydroxyzine HCl 10 mg tablet 10 mg PO BID 01/12/24 07/17/25 History hydroxyzine HCl 10 mg tablet 20 mg PO HS 01/12/24 07/17/25 History lamotrigine 200 mg tablet 200 mg PO HS 01/12/24 07/17/25 History levothyroxine 75 mcg tablet 75 mcg PO DAILY 01/12/24 07/17/25 History omeprazole 40 mg capsule,delayed 40 mg PO DAILYBB 01/12/24 07/17/25 History release oxybutynin chloride 5 mg tablet 2.5 mg PO BID 01/12/24 07/17/25 History paroxetine HCl 30 mg tablet 30 mg PO HS 01/12/24 07/17/25 History vit C 250 mg-vit E 90 mg-zinc 40 1 tab PO BID 01/12/24 07/17/25 History mg-copper 1 [id number] capsule (PreserVision AREDS-2) hydroxyzine HCl 10 mg tablet 10 - 20 mg PO DIRECTED PRN 01/13/24 07/17/25 History Anxiety/Mood loperamide 2 mg capsule (Imodium 2 - 4 mg PO DIRECTED 09/30/24 07/17/25 History A-D) melatonin 3 mg disintegrating 3 mg PO HS PRN Insomnia 09/30/24 07/17/25 History tablet furosemide 20 mg tablet (Lasix) 20 mg PO Q OTHER DAY #30 tabs 10/04/24 07/17/25 Rx multivitamin (Daily-Priscila tablet) 1 tab PO DAILY 03/15/25 07/17/25 History apixaban 5 mg tablet (Eliquis) 5 mg PO BID #60 tabs 03/17/25 07/17/25 Rx calcium 500 mg (as 1 tab PO DAILY 04/30/25 07/17/25 History carbonate)-vitamin D3 5 mcg (200 unit) tablet (Oyster Shell Calcium-Vitamin D3) metoprolol succinate 100 mg 100 mg PO QAM 04/30/25 07/17/25 History tablet,extended release 24 hr tramadol 50 mg tablet 50 mg PO BID PRN pain #11 tabs 05/22/25 07/17/25 Rx naproxen sodium 220 mg tablet 220 mg PO BID PRN Pain 07/17/25 07/17/25 History Patient History Medical History HTN (hypertension) Osteoarthritis of right knee Stasis dermatitis Elevated liver enzymes Degenerative arthritis Anxiety Surgical History History of hip surgery 02/2024 - right femur fracture s/p intermedullary anai S/P cataract surgery Family History Father , age 76 of metastatic prostate cancer Cancer Prostate cancer Heart disease Mother , age 93 Rheumatoid arthritis Social History Smoking Status: Never smoker Second Hand Exposure: No; Do You Dip or Chew Tobacco: No; Tobacco Cessation Education Requested by Patient: No Hx Alcohol Use: No Hx Substance Use: No Preferred Language: Uzbek Communication Ability: Effective Assistant Pastry Chef Required: No Beliefs That Will Affect Care: None marital status: Single Current Living Situation: Personal Care Facility Current Living Situation Comment: [facility] current occupational status: retired 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 Reports pain to the right leg with dressing change. Physical Exam Physical Exam: Focused lower extremity exam: Loss of hair growth in bilateral lower extremity below the knee. Right dorsalis pedis pulses lightly palpable. Nonpalpable posterior tibial pulse and DP pulse left foot. Venous stasis changes bilateral lower extremity with thin atrophic appearing soft tissue loss of skin turgor on venous stasis ulceration to the lateral aspect of the right leg. Ulceration is geographic and limited to breakdown of skin with healthy granular wound bed and small area of persistent fibrotic tissue centrally. Decreased wound dimensions over the past week when compared to images obtained on 07/18/2025. Likely baseline ruber to the bilateral lower extremity makes it difficult to distinguish from local soft tissue infection however there is no increased erythema or edema surrounding the ulceration on the lateral aspect of the right leg. No active drainage or malodor. Moderate serous drainage to dressing. Results & Data Vital Signs (Past 12 Hours) Vital Signs Temp Pulse Pulse Resp BP BP Pulse Ox 07/24/25 12:23 36.7 C 76 16 106/63 91 07/24/25 08:09 36.5 C 74 20 115/69 95 07/24/25 07:15 93 H 07/24/25 07:15 07/24/25 04:22 36.5 C 82 18 104/69 92 O2 Del Method 07/24/25 12:23 Room Air 07/24/25 08:09 Room Air 07/24/25 07:15 07/24/25 07:15 Room Air 07/24/25 04:22 Room Air Laboratory Results WBC 7.3 Diagnostic Findings Arterial Doppler 03/18/2025: IMPRESSION: 1. Waveforms are mostly monophasic. Suggested bilateral lower limb arterial disease. 2. No evidence of significant stenosis (50%) or hemodynamically significant lesions. 3. Diffuse atherosclerotic changes are seen. No significant stenosis detected. PG Care Time/CCT Total # of Minutes Spent Total Time Spent with Patient: Total time spent is greater than 50% in coordination of care (as documented) at patient's floor/unit and/or counseling patient: Coding Level of Care Code 87477 INT INP/OBS CARE 2/55MIN Diagnoses Venous stasis dermatitis of both lower extremities I87.2 Venous stasis ulcer of right thigh limited to breakdown of skin, unspecified whether varicose veins present I83.011; L97.111 Varicose vein presence: unspecified whether present
[2025-07-25 07:39] LABS: Hematocrit (blood only) 31.4 % (37.0-47.0); Hemoglobin 10.4 g/dl (12.0-16.0); Mean Corpuscular Hemoglobin 29.2 pg (25.0-34.0); Mean Corpuscular Volume 88.2 fL (80.0-100.0); Platelet Count 363 K/uL (130-400); RDW Standard Deviation 47.1 fL (36.4-46.3); Red Blood Count 3.56 M/uL (4.20-5.40); White Blood Count 8.44 K/ul (4.8-10.8)
[2025-07-25 08:04] LABS: Anion Gap 5.0 (3-11); Blood Urea Nitrogen 15.0 mg/dl (6-23); Calcium 8.9 mg/dl (8.6-10.3); Carbon Dioxide 30.0 mmol/L (21-32); Chloride 104.0 mmol/L (98-107); Creatinine Clr Calc Pharmacy 45.8 ml/min; Glucose 100.0 mg/dl (70-99(Fasting)); Magnesium 1.9 mg/dl (1.7-2.4); Potassium 4.5 mmol/L (3.5-5.1); Sodium 139.0 mmol/L (136-145)
--- NOTE | 2025-07-25 13:07 | Hospitalist Progress Note ---
Date of Service July 25, 2025 Assessment & Plan (1) Sepsis: Plan: 84-year-old woman with PMH of hypothyroidism, systolic CHF, nonrheumatic aortic valve stenosis, GERD, CKD stage IIIa, history of generalized weakness, history of lipodermatosclerosis of lower extremities, kyphosis of spine, osteoporosis, macular degeneration, postherpetic polyneuropathy, essential tremor, inguinal lymphadenopathy, depression, gait disturbance, history of COVID, history of MRSA screen positive, spinal stenosis of cervical region, comes from [facility] for confusion and found to be in sepsis and lower extremity cellulitis. Mostly wheelchair-bound at baseline. Sepsis Strep bacteremia--POA Right lower extremity cellulitis Acute metabolic encephalopathy--POA H/O ESBL CXR showed no signs of pneumonia Blood Culture: 03/01: Strep agalactiae Repeat blood cultures: Negative to date Urine culture grew lactobacillus ECHO: EF 65 to 70%. No regional wall motion abnormality. Left atrium severely dilated. Right atrium moderately dilated. Moderate valvular aortic stenosis. Mild mitral regurgitation, mild mitral stenosis. Moderate tricuspid regurgitation. Pulmonary artery systolic pressure estimated to be 70 mmHg. No evidence of valvular vegetation. Lactic acidosis resolved with IV fluids Was initially on ertapenem, doxycycline and then transitioned to Rocephin, doxycycline ID consulted. Awaiting final ID recs Continue wound care Repeat blood cultures remain negative Continue PT/OT. SNF recommended Abnormal CT abdomen CT ABD:Possible acute cholecystitis versus gallbladder edema from the trace ascites. Interval right inguinal lymphadenopathy. No other acute findings seen at the abdomen or pelvis. Denies any abdominal pain, nausea, vomiting. No tenderness on exam Surgery input noted A-fib RVR H/O Afib Rate is currently controlled Continue metoprolol succinate 100 mg daily On Eliquis for anticoagulation Monitor and replete electrolytes as needed Chronic systolic CHF Severe aortic valve stenosis Echo done on 03/03/2024 shows EF of 65-69 % and severe aortic valve stenosis Monitor volume status closely Continue home Lasix, metoprolol CKD III Cr at baseline Monitor renal function Avoid nephrotoxic agents as able Hypothyroidism Continue levothyroxine GERD Continue PPI Depression On paroxetine and Lamictal Anxiety On hydroxyzine prn Ambulatory dysfunction Mostly wheelchair-bound Can walk short distance with assistance PT OT eval noted DVT Px:Eliquis CODE STATUS:Full code I spent a total of 45 minutes coordinating, documenting and providing care for this patient excluding time spent in performance of separately billed services Admission and Anticipated Discharge Date Admission Date: July 17, 2025 Subjective Patient seen and examined No new complaints today Physical Exam Constitutional: + well hydrated; no acute distress Eyes: PERRL, conjunctivae normal, anicteric sclerae ENMT: external ear and nose normal, oropharynx normal Respiratory: normal respiratory effort, lungs clear to auscultation Cardiovascular: Rate/Rhythm: + irregularly irregular Gastrointestinal (Abdomen): normal bowel sounds, soft, nontender, no hepatosplenomegaly Musculoskeletal: Clean dressing over RLE wound Neurologic: PERRL, EOMI, accommodation nl, no face palsy, no dysarthria Psychiatric: A+Ox3, euthymic affect Results & Data Results & Data Vital Signs (Past 12 Hours) Vital Signs Temp Pulse Pulse Resp BP Pulse Ox O2 Del Method 07/25/25 11:26 36.7 C 95 H 16 114/68 94 Room Air 07/25/25 08:18 90 Room Air 07/25/25 08:00 Room Air 07/25/25 07:57 37.0 C 16 106/62 07/25/25 07:00 86 07/25/25 04:14 36.9 C 86 18 110/63 92 Room Air Laboratory Results Abnormal lab results 07/25/25 Range/Units 07:14 RBC 3.56 L (4.20-5.40) M/uL Hgb 10.4 L (12.0-16.0) g/dl Hct 31.4 L (37.0-47.0) % RDW Std Deviation 47.1 H (36.4-46.3) fL RDW Coeff of Benita 14.7 H (11.5-14.5) % MPV 8.4 L (9.4-12.4) fL Glucose 100 H (70-99(Fasting)) mg/dl
--- NOTE | 2025-07-25 14:27 | Communication Note ---
Date of Service: July 25, 2025 Impression: 1. Strep agalactiae bacteremia-no apparent source but presumably from skin and soft tissue infection 2. Right lower extremity cellulitis Recommendations: Continue treatment with IV antibiotics while inpatient (ceftriaxone 2 g IV daily). On discharge, step-down to oral amoxicillin 1 g 3 times daily to complete a course of 14 days with anticipated end date of August 03, 2025. Infectious Disease will sign off for now.
[2025-07-26 07:38] VITALS: RESP 18
[2025-07-26 09:35] LABS: Hematocrit (blood only) 35.6 % (37.0-47.0); Hemoglobin 11.2 g/dl (12.0-16.0); Mean Corpuscular Hemoglobin 28.8 pg (25.0-34.0); Mean Corpuscular Volume 91.5 fL (80.0-100.0); Platelet Count 452 K/uL (130-400); RDW Standard Deviation 50.4 fL (36.4-46.3); Red Blood Count 3.89 M/uL (4.20-5.40); White Blood Count 6.72 K/ul (4.8-10.8)
[2025-07-26 09:41] LABS: Anion Gap 4.0 (3-11); Blood Urea Nitrogen 16.0 mg/dl (6-23); Calcium 9.0 mg/dl (8.6-10.3); Carbon Dioxide 31.0 mmol/L (21-32); Chloride 102.0 mmol/L (98-107); Creatinine Clr Calc Pharmacy 41.9 ml/min; Glucose 99.0 mg/dl (70-99(Fasting)); Potassium 4.4 mmol/L (3.5-5.1); Sodium 137.0 mmol/L (136-145)
--- NOTE | 2025-07-26 11:03 | Discharge Summary ---
Date of Service July 26, 2025 Admission HPI Per Admitting Provider 84-year-old female with past med history significant for hypothyroidism, history of systolic CHF, nonrheumatic aortic valve stenosis, GERD, CKD stage IIIa, history of generalized weakness, history of lipodermatosclerosis of lower extremities, kyphosis of spine, osteoporosis, macular degeneration, postherpetic polyneuropathy, essential tremor, inguinal lymphadenopathy, depression, gait disturbance, history of COVID, history of MRSA screen positive, spinal stenosis of cervical region,, comes from [facility] for confusion and found to be in sepsis and UTI and possible lower extremity cellulitis. Patient is somewhat sleepy but alert and oriented x 3. Have to wake up frequently to ask questions. States feeling cold. Denies any headache. Denies runny nose or sore throat or cough. Denies chest pain or shortness of breath. Denies nausea. Denies abdominal pain. States normal bowel and bladder movements. Has some pain in the lower extremities. Says she is mostly wheelchair-bound. Currently not able to reach jail. Able to talk to her cousin. Her cousin's is power of personal injury attorney. As per cousin patient is mostly wheelchair-bound she can walk small distance with assistance. Has chronic knee pain. Patient is DNR but her power of personal injury attorney says okay to try for resuscitation for short period of time if there is chance of recovery. Past medical history. As mentioned above. Past surgical history. Leg trochanteric fracture treatment. Social history. Current living [facility]. No smoking. No alcohol use. No drug use. Family history. Mother had arthritis. Paternal aunt had breast cancer. Maternal aunt had breast cancer. Paternal aunt had non-Hodgkin's lymphoma. Father had prostate cancer. Paternal aunt had diabetes. Paternal aunts had hypertension. Admission Exam Per Admitting Provider General- Drowsy Head- atraumatic ENT- oropharynx clear Neck- supple, no JVD. Lungs- clear to auscultation no wheezing or crackles Heart- regular rhythm;tachycardia ES murmur, no gallop. Abdomen- normal bowel sounds, soft, nontender, no distension Extremities- Mild b/l lower extremity edema with chronic skin changes and mild erythema seen. superficial ulcers in right lower leg Neuro- Drowsy but oriented x 3; no facial palsy; no dysarthria; moves extremities Principal Diagnosis Sepsis Strep bacteremia Right Lower extremity wound/cellulitis Discharge Exam Constitutional + well hydrated; no acute distress Eyes PERRL, conjunctivae normal, anicteric sclerae ENMT external ear and nose normal, oropharynx normal Respiratory normal respiratory effort, lungs clear to auscultation Cardiovascular Rate/Rhythm: + irregularly irregular Gastrointestinal (Abdomen) normal bowel sounds, soft, nontender, no hepatosplenomegaly Musculoskeletal Clean dressing over RLE Neurologic PERRL, EOMI, accommodation nl, no face palsy, no dysarthria Psychiatric A+Ox3, euthymic affect Discharge Data Allergies Allergy/AdvReac Type Severity Reaction Status Date / Time No Known Allergies Allergy Verified 07/17/25 19:11 Consultations 07/17/25 19:15 ED Decision to Admit Stat 07/18/25 10:30 Consult General Surgery Routine 07/19/25 12:14 Consult Infectious Diseases Routine 07/23/25 07:41 Consult Podiatry Routine Ordered Studies 07/18/25 07:41 CT Abd and Pelvis [CT abd pelvis wo con] Urgent Hospital Course (1) Sepsis: 84-year-old woman with PMH of hypothyroidism, systolic CHF, nonrheumatic aortic valve stenosis, GERD, CKD stage IIIa, history of generalized weakness, history of lipodermatosclerosis of lower extremities, kyphosis of spine, osteoporosis, macular degeneration, postherpetic polyneuropathy, essential tremor, inguinal lymphadenopathy, depression, gait disturbance, history of COVID, history of MRSA screen positive, spinal stenosis of cervical region, comes from [facility] for confusion and found to be in sepsis and lower extremity cellulitis. Mostly wheelchair-bound at baseline. Sepsis Strep bacteremia--POA Right lower extremity cellulitis Acute metabolic encephalopathy--POA H/O ESBL CXR showed no signs of pneumonia Initial Blood Culture: 03/01: Strep agalactiae Repeat blood cultures: Negative to date Urine culture grew lactobacillus ECHO: EF 65 to 70%. No regional wall motion abnormality. Left atrium severely dilated. Right atrium moderately dilated. Moderate valvular aortic stenosis. Mild mitral regurgitation, mild mitral stenosis. Moderate tricuspid regurgitation. Pulmonary artery systolic pressure estimated to be 70 mmHg. No evidence of valvular vegetation. Lactic acidosis resolved with IV fluids Was initially on ertapenem, doxycycline and then transitioned to Ceftriaxone, doxycycline ID evaluated and recommended changing to po Amoxicillin 1g TID till 9/6/25 to complete treatment Abnormal CT abdomen CT ABD noted possible acute cholecystitis versus gallbladder edema from the trace ascites. Interval right inguinal lymphadenopathy. No other acute findings seen at the abdomen or pelvis. Patient did not have any symptoms or sign of acute cholecystitis Surgery evaluated and did not recommend any surgical intervention A-fib with RVR H/O Afib Rate is currently controlled Continue metoprolol succinate 100 mg daily Continue Eliquis for anticoagulation Chronic systolic CHF Severe aortic valve stenosis Echo done on 03/03/2024 shows EF of 65-69 % and severe aortic valve stenosis Continue CALL [employer] Lasix, metoprolol CKD III Cr at baseline Hypothyroidism Continue levothyroxine GERD Continue PPI Depression On paroxetine and Lamictal Anxiety On hydroxyzine prn PT/OT evaluated and SNF was recommended Patient discharged to SNF Total Time Total Time Spent Total Time Spent (In Minutes): 35 Total Time Includes: Examination of the Patient, Discharge Planning and Medication Reconciliation Discharge Plan Discharge Items Patient Disposition: Transfer [facility] Reason For Visit: SEPSIS, UTI, CELLULITIS Discharge Diagnosis: Sepsis Strep bacteremia Right Lower extremity wound/cellulitis Condition on Discharge: Fair Activity: As commented below Activity Comment: Per Physical therapist Non-emergency contact: Primary Care Provider Call non-emergency contact if: you have any medication questions Follow-up/Referrals: Dion Choe DO [Primary Care Provider] - Diet: Heart Healthy Addtl Attending Provider Instructions: Ms Howard You were hospitalized and managed for the above listed diagnoses. You are being discharged on antibiotic amoxicillin 1g three times a day until 08/03/25 Please ensure follow up with your Primary Doctor. It was a pleasure taking care of you. Pending Studies at Discharge: No Stand-Alone Forms: My [facility] Skilled Items Patient informed of condition?: Yes DNR: No Discharge Level of Care: Skilled Communicable Disease: No Discharge Prognosis: Stable Lines: None Urinary Catheter: No Medications and DC Order Prescriptions: New amoxicillin 500 mg tablet 1,000 mg PO TID Qty: 50 0RF Continued hydroxyzine HCl 10 mg Tablet 10 - 20 mg PO DIRECTED PRN (Reason: Anxiety/Mood) loperamide [Imodium A-D] 2 mg Capsule 2 - 4 mg PO DIRECTED Rx Instructions: TAKE 4MG BY MOUTH AFTER 1ST LOOSE STOOL, THEN 2MG AFTER ADDITION LOOSE STOOL. MAX 16MG DAILY multivitamin [Daily-Priscila] Tablet 1 tab PO DAILY Qty: 30 0RF lamotrigine 200 mg tablet 200 mg PO HS 30 Days Qty: 30 0RF metoprolol succinate 100 mg tablet extended release 24 hr 100 mg PO QAM Qty: 30 0RF omeprazole 40 mg capsule,delayed release(DR/EC) 40 mg PO DAILYBB Qty: 30 0RF tramadol 50 mg tablet 50 mg PO BID PRN (Reason: pain) Qty: 10 0RF levothyroxine 75 mcg tablet 75 mcg PO DAILY Qty: 30 0RF paroxetine HCl 30 mg tablet 30 mg PO HS Qty: 30 0RF furosemide [Lasix] 20 mg tablet 20 mg PO Q OTHER DAY Qty: 30 0RF oxybutynin chloride 5 mg tablet 2.5 mg PO BID Qty: 30 0RF hydroxyzine HCl 10 mg tablet 20 mg PO HS Qty: 30 0RF Rx Instructions: 2300 hydroxyzine HCl 10 mg tablet 10 mg PO BID Qty: 60 0RF Rx Instructions: Give 1100 & 1700 calcium carbonate-vitamin D3 [Oyster Shell Calcium-Vit D3] 500 mg-5 mcg (200 unit) Tablet 1 tab PO DAILY Qty: 30 0RF Eliquis 5 mg Tablet 5 mg PO BID Qty: 60 0RF melatonin 3 mg Tablet,Disintegrating 3 mg PO HS PRN (Reason: Insomnia) Qty: 30 0RF PreserVision AREDS-2 250-90-40-1 mg Capsule 1 tab PO BID Qty: 30 0RF Discontinued naproxen sodium 220 mg Tablet 220 mg PO BID PRN (Reason: Pain) Discharge Orders: Discharge Order (Routine); Ordered 07/26/25 Ordered By: Earnestine Nance Admission Data Admit Date/Time: 07/17/25 19:59 Attending Provider: Earnestine Nance I. Admit Provider: Cuco Dela Cruz Primary Care Provider: Dion Choe Other Providers: [facility]; Cuco Dela Cruz; Itz Valladares; Miguel Angel Carrera; Montserrat Millan; Jairo Bowie; Dion Lopez; Marilou Garcia; Chana Hutchinson; Camilo Hernandez Jr; Dayana Zarate; Beau Marcial; Enid Verdin; David Rivera; Ron Cox; Junaid Mendoza I.; Medhat Ferraro II; Roseanne Botello; Miguel Angel Hawley; Camilo Laguna; Tasia Hobbs; Landry Frazier; Mitch Anthony; [facility],Care Other Interventions: Discharge Summary Assessment (RN) Last Done: 07/26/25 12:11
[2025-07-26 11:30] VITALS: TEMP 97.9; O2SAT 94
[2025-07-26 12:12] VITALS: BP 96/56; PULSE 115
== END 2025-07-26 13:14 | DRG 871 ==
LOC: ED 16:30 → SUATTDRO 19:59 → EDINP 19:59 → 4W 22:04 → 2W 07-21 18:45

== ENCOUNTER 2025-09-10 16:30 | Inpatient (IN) ==
--- NOTE | 2025-09-10 17:02 | Emergency Department Note ---
Impression & Plan Fall, Atrial fibrillation with rapid ventricular response, Bilateral lower leg cellulitis, Laceration of occipital scalp ED Provider Note Provider: Kendrick Lam MD CHIEF COMPLAINT: Fall HISTORY OF PRESENT ILLNESS: Patient is a 84-year-old female history of heart failure, venous stasis, atrial fibrillation on Eliquis presenting here after unwitnessed fall at [facility]. Patient was found on the floor after staff heard a sound that she was on the bathroom floor. There is no reported loss of consciousness as she was immediately found and there was noted to be some bleeding from the back of the head. Patient herself not a good historian to events of today. Reports a little bit of head pain but denies other chest abdominal pain or trouble breathing today. PAST MEDICAL HISTORY: As noted above MEDICATIONS: Reviewed medication list includes Eliquis. SOCIAL HISTORY: Resides at [facility] PHYSICAL EXAM: GENERAL: alert and oriented to person in no acute distress on stretcher. No acute dysuria. Head: patient with some dried matted blood in the head posteriorly with approximately a centimeter skin defect on the occiput EYES: No injection, discharge or icterus. PERRL, EOMI. NECK: Trachea midline. Supple no midline cervical tenderness ENT: Mucous membranes pink and moist. Pharynx without erythema or exudate. LUNGS: Airway patent. No retractions. Breath sounds clear with good air entry bilaterally. HEART: Regular rate and rhythm. No chest wall tenderness ABDOMEN: Soft and non-tender, without guarding or rebound. No flank tenderness. No midline back tenderness. SKIN: Acyanotic, warm, dry chronic stasis changes of lower legs as below EXTREMITIES: Without deformity or tenderness of the extremities other than some chronic stasis below the knees bilaterally with some slight weeping and erythema from the left guerrero and the right lateral calf several centimeters in size each. No crepitus but tender in this area. No bulla or blisters noted. Poor peripheral perfusion of the bilateral toes/feet. No gangrenous changes. NEUROLOGICAL: No focal deficits. No aphasia. No facial droop or slurred speech. Normal strength and tone in the extremities. Sensation to gross touch normal. Ambulatory. EK bpm atrial flutter variable block with a QTc of [address] segment elevation or depression CONTINUOUS CARDIAC MONITORING: was ordered and showed a heart rate of 90s to 130s bpm in atrial fibrillation/atrial flutter Patient's laboratory studies and imaging reviewed. Differential includes Fracture, dislocation, contusion, intra-abdominal, pneumothorax, intrathoracic, intracranial, neurologic, compartment syndrome, rhabdomyolysis, as well as other pathologies. IMPRESSION/MEDICAL DECISION MAKING: Unclear exactly how she fell. As such blood work EKG and workup was obtained. Small trauma to the back of the head. CT imaging obtained given use of blood thinner. Does not appear an extremis. Not the best historian but from prior interactions this seems to be more chronic. No evidence of significant injury to the extremities or abdomen pelvis on exam. ATLS primary and secondary survey were completed. Tetanus update in 2019 noted in computer. Blood work here some mild chronic anemia. No leukocytosis. No significant electrolyte abnormality or signs of renal dysfunction. Alkaline phosphatase mildly elevated without other significant transaminitis and consistent to similar. CK, troponin, and lipase are normal. Chest x-ray completed as well as CT imaging of the head, cervical spine, chest abdomen pelvis. Radiology reports were reviewed. No significant traumatic injuries. Slightly progressive effusions. Not on oxygen hypoxic here. Laceration to the back of the occiput was closed as below with dustin. Discussed with patient findings. Patient does have fairly painful erosions on reevaluation of the bilateral lower extremity ulcers and some weeping of the lower extremities. Quite sore and even difficult to roll her in the bed much due to discomfort here. Did review recent hospitalization in June and blood cultures from then. While he does not appear septic but she does does go into what appears to be a rapid A-fib into the 120s and 30s. Given IV dose of metoprolol for better rate control. Will obtain blood cultures and give a dose of ceftriaxone as well as doxycycline given the wounds on the legs. Will bring in for further care and discussion with her as this may have contributed to her fall today. DIAGNOSIS: Fall, head laceration, lower extremity cellulitis, rapid A-fib DISPOSITION: Hospitalist will evaluate Patient was agreeable with this plan. LACERATION REPAIR: Performed by myself Patient, procedure, and site were verified immediately before the procedure. Appropriate neurovascular exam was performed to test sensation, motor function and perfusion. The skin around the wound was prepped with chlorhexidine scrub Wound was irrigated with saline Wound was explored to its base. There was no visible foreign body in the wound. The laceration was repaired by means of a single layer closure. Skin was closed and best approximated with a total of 7 dustin Total wound length was 1.5 cm. Good hemostasis. Patient tolerated the procedure well. Past Med/Surg History Problem List (Updated 09/10/25 @ 18:54 by Kendrick Lam M.D.) Laceration of occipital scalp (Acute) Fall (Acute) Venous stasis ulcer of right thigh limited to breakdown of skin Acute UTI (Acute) Cervical strain, acute Chronic heart failure with preserved ejection fraction Venous stasis dermatitis of both lower extremities Syncope, cardiogenic Laceration of scalp (Acute) Atrial fibrillation with rapid ventricular response (Acute) Fall from standing (Acute) Cholelithiasis Bilateral lower leg cellulitis (Acute) Aortic stenosis Depression with anxiety Sensory polyneuropathy Essential tremor Fracture, thoracic vertebra (Acute) COVID-19 virus infection Paroxysmal atrial fibrillation with RVR (Acute) Postherpetic neuralgia (Chronic) Medical History HTN (hypertension) Osteoarthritis of right knee Stasis dermatitis Elevated liver enzymes Degenerative arthritis Anxiety Surgical History History of hip surgery 02/2024 - right femur fracture s/p intermedullary anai S/P cataract surgery Family History Father , age 76 of metastatic prostate cancer Cancer Prostate cancer Heart disease Mother , age 93 Rheumatoid arthritis Social History Smoking Status: Never smoker Second Hand Exposure: No; Do You Dip or Chew Tobacco: No; Hx Alcohol Use: No Hx Substance Use: No Preferred Language: Citizen Of [place] Communication Ability: Effective Territory Account Manager Required: No Beliefs That Will Affect Care: None marital status: Single Current Living Situation: Personal Care Facility Current Living Situation Comment: [facility] current occupational status: retired 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57 How many Children do You have: 0 Feels Safe at Home: Yes Assistive Devices: Wheelchair Allergies Allergies Allergy/AdvReac Type Severity Reaction Status Date / Time No Known Allergies Allergy Verified 09/10/25 18:59 Home Meds Home Medications Medication Instructions Recorded Confirmed hydroxyzine HCl 10 mg tablet 10 - 20 mg PO DIRECTED PRN 01/13/24 09/10/25 Anxiety/Mood loperamide 2 mg capsule (Imodium 2 mg PO DIRECTED 09/30/24 09/10/25 A-D) levothyroxine 75 mcg tablet 75 mcg PO DAILYBB 09/10/25 09/10/25 naproxen sodium 220 mg tablet 220 mg PO BID PRN Pain 09/10/25 09/10/25 Previous Rx's Medication Instructions Recorded apixaban 5 mg tablet (Eliquis) 5 mg PO BID #60 tabs 07/26/25 calcium 500 mg (as 1 tab PO DAILY #30 tabs 07/26/25 carbonate)-vitamin D3 5 mcg (200 unit) tablet (Oyster Shell Calcium-Vitamin D3) furosemide 20 mg tablet (Lasix) 20 mg PO Q OTHER DAY #30 tabs 07/26/25 hydroxyzine HCl 10 mg tablet 10 mg PO BID #60 tabs 07/26/25 hydroxyzine HCl 10 mg tablet 20 mg (2 x 10 mg) PO HS #30 tabs 07/26/25 lamotrigine 200 mg tablet 200 mg PO HS 30 days #30 tabs 07/26/25 melatonin 3 mg disintegrating 3 mg PO HS PRN Insomnia #30 tabs 07/26/25 tablet metoprolol succinate 100 mg 100 mg PO QAM #30 tabs 07/26/25 tablet,extended release 24 hr multivitamin (Daily-Priscila tablet) 1 tab PO DAILY #30 tabs 07/26/25 omeprazole 40 mg capsule,delayed 40 mg PO DAILYBB #30 caps 07/26/25 release oxybutynin chloride 5 mg tablet 2.5 mg (1/2 x 5 mg) PO BID #30 tabs 07/26/25 paroxetine HCl 30 mg tablet 30 mg PO HS #30 tabs 07/26/25 tramadol 50 mg tablet 50 mg PO BID PRN pain #10 tabs 07/26/25 vit C 250 mg-vit E 90 mg-zinc 40 1 tab PO BID #30 caps 07/26/25 mg-copper 1 [id number] capsule (PreserVision AREDS-2) Results & Data (ED) Vital Signs Vital Signs - 24 hr 09/10/25 16:40 09/10/25 16:58 09/10/25 17:39 Temperature 37 C Temperature Source Oral Pulse Rate 104 H 86 Pulse Rate [Apical] 108 H Respiratory Rate 19 19 Respiratory Effort / Characteristics Non-Labored Spontaneous Non-Labored Spontaneous Respiratory Depth Normal Normal Respiratory Pattern Regular Regular Blood Pressure 129/84 Blood Pressure [Right Arm] 140/98 Blood Pressure Mean 99 Blood Pressure Mean [Right Arm] 112 Pulse Oximetry 100 97 Oxygen Delivery Method Room Air Room Air Sepsis Recent Fever Within 48 Hours No Sepsis New/Unexplained Change in Mental Status No Sepsis Action Taken by Nursing No Action Required 09/10/25 18:36 09/10/25 18:39 09/10/25 19:00 Temperature Temperature Source Pulse Rate Pulse Rate [Apical] 118 H 113 H Respiratory Rate 18 16 Respiratory Effort / Characteristics Non-Labored Spontaneous Non-Labored Respiratory Depth Normal Normal Respiratory Pattern Regular Blood Pressure Blood Pressure [Right Arm] 140/98 133/90 Blood Pressure Mean Blood Pressure Mean [Right Arm] 112 104 Pulse Oximetry 97 96 93 Oxygen Delivery Method Room Air Room Air Room Air Sepsis Recent Fever Within 48 Hours Sepsis New/Unexplained Change in Mental Status Sepsis Action Taken by Nursing 09/10/25 20:00 Temperature Temperature Source Pulse Rate Pulse Rate [Apical] 101 H Respiratory Rate 16 Respiratory Effort / Characteristics Non-Labored Respiratory Depth Normal Respiratory Pattern Blood Pressure Blood Pressure [Right Arm] 126/87 Blood Pressure Mean Blood Pressure Mean [Right Arm] 100 Pulse Oximetry 94 Oxygen Delivery Method Room Air Sepsis Recent Fever Within 48 Hours Sepsis New/Unexplained Change in Mental Status Sepsis Action Taken by Nursing Laboratory Data 09/10/25 16:46 09/10/25 16:46 Lab Results 09/10/25 09/10/25 Range/Units 16:46 17:06 WBC 7.24 (4.8-10.8) K/ul RBC 3.91 L (4.20-5.40) M/uL Hgb 10.8 L (12.0-16.0) g/dl POC Hgb 12.2 (12.0-16.0) g/dl Hct 34.9 L (37.0-47.0) % POC Hct 36 L (37-47) % MCV 89.3 (80.0-100.0) fL MCH 27.6 (25.0-34.0) pg MCHC 30.9 L (32.0-36.0) g/dL RDW Std Deviation 46.5 H (36.4-46.3) fL RDW Coeff of Benita 14.3 (11.5-14.5) % Plt Count 268 (130-400) K/uL MPV 8.5 L (9.4-12.4) fL Immature Gran % (Auto) 0.4 % Neut % (Auto) 65.1 % Lymph % (Auto) 20.2 % [place] % (Auto) 11.0 % Eos % (Auto) 2.6 % Baso % (Auto) 0.7 % Neut # (Auto) 4.71 (1.40-6.50) K/uL Lymph # (Auto) 1.46 (1.20-3.40) K/uL [place] # (Auto) 0.80 H (0.11-0.59) K/uL Eos # (Auto) 0.19 (0.00-0.50) K/uL Baso # (Auto) 0.05 (0.00-0.20) K/uL Immature Gran # (Auto) 0.03 (0.01-0.20) K/uL PT 12.1 H (9.0-12.0) Seconds INR 1.2 H (0.9-1.1) APTT 29 (21-31) Seconds PTT Ratio 1.1 POC Sodium 139 (135-144) mmol/L Sodium 136 (136-145) mmol/L POC Potassium 3.9 (3.3-5.0) mmol/L Potassium 3.8 (3.5-5.1) mmol/L POC Chloride 101 (101-112) mmol/L Chloride 102 (98-107) mmol/L Carbon Dioxide 27 (21-32) mmol/L POC Total CO2 25 (24-31) mmol/L Anion Gap 7 (3-11) POC Anion Gap 17.0 (16-25) mmol/L POC BUN 22 H (7-18) mg/dl BUN 22 (6-23) mg/dl Creatinine 1.03 (0.6-1.2) mg/dl POC Creatinine 1.2 (0.6-1.3) mg/dl Est Cr Clr Drug Dosing 35.4 ml/min eGFR 53.95 BUN/Creatinine Ratio 21.4 H (10-20) Glucose 140 H (70-99(Fasting)) mg/dl POC Glucose (other) 139 H (70-99) mg/dl Calcium 8.9 (8.6-10.3) mg/dl POC Ioniz Calcium Clint 1.15 (1.12-1.32) mmol/l Total Bilirubin 1.2 H (0.2-1.0) mg/dl AST 20 (13-39) U/L ALT 14 (7-52) U/L Alkaline Phosphatase 221 H (34-104) U/L Total Creatine Kinase 42 (26-192) U/L Troponin I High Sens 9.3 (0-14) pg/ml Total Protein 7.6 (6.0-8.3) gm/dl Albumin 3.9 (3.4-5.0) gm/dl Globulin 3.7 (2.5-4.0) gm/dl Albumin/Globulin Ratio 1.1 (0.9-2) Lipase 20 (11-82) U/L Administered Medications Discontinued Medications Doxycycline Hyclate (Doxycycline Hyclate 100 Mg Cap) 100 mg PO NOW STA Stop: 09/10/25 18:51 Last Admin: 09/10/25 20:20 Dose: 100 mg Documented By: DANNIE Ceftriaxone Sodium (Rocephin) 2,000 mg in 50 mls @ 100 mls/hr IV NOW STA Stop: 09/10/25 19:19 Last Infusion: 09/10/25 20:56 Dose: Infused Documented By: Admin: 09/10/25 20:20 Dose: 100 mls/hr Documented By: DANNIE Acetaminophen (Ofirmev) 1,000 mg in 100 mls @ 400 mls/hr IV NOW STA Stop: 09/10/25 19:13 Last Infusion: 09/10/25 19:51 Dose: Infused Documented By: Admin: 09/10/25 19:26 Dose: 400 mls/hr Documented By: DANNIE Ioversol (Optiray 320 100ml) 90 ml IV ONCE ONE Stop: 09/10/25 17:18 Last Admin: 09/10/25 17:17 Dose: 90 ml Documented By: STEPHANIE Imaging Data Radiologist's Impression: Chest X-Ray 09/10/25 16:49 Clinical History: Trauma Technique: 2 frontal views of the chest were obtained Findings: There are no confluent pulmonary infiltrates. The heart is enlarged. No pleural effusion or pneumothorax is seen. There is diffuse interstitial prominence, concerning for pulmonary edema There is internal fixation of the left humerus Impression: Cardiomegaly and pulmonary edema ACT 112: Positive. There are findings on this exam that require communication between the performing entity and the patient following Patient Test Result Information Act ([place] ACT 112) guidelines. Electronically signed by Lucius Yañez 09-10-2025 6:05 PM Abdomen/Pelvis CT 09/10/25 16:50 EXAMINATION: Abdomen and pelvis CT with CLINICAL HISTORY: Fall unwitnessed PRIORS: 07/18/2025, 2023 TECHNIQUE: Contiguous axial images were obtained through the abdomen and pelvis with the use of intravenous contrast. Sagittal and coronal reformations are supplied. FINDINGS: Small to moderate bilateral pleural effusions. No hemoperitoneum or retroperitoneal hemorrhage. No solid organ laceration or subcapsular hematoma. Liver enhances heterogeneous leak which could be on the basis of timing of contrast. The portal vein, under distended stomach, spleen, adrenals, aorta and IVC are morphologically unremarkable. Kidneys enhance symmetrically with bilateral renal cortical thinning, right greater than left. Moderate atherosclerotic disease of the abdominal aorta noted. No dilated loops of bowel or bowel wall hematoma. A large amount of formed stool present throughout the colon. No bowel obstruction or pericolonic inflammatory change. Appendix is normal. Atrophic uterus is present. Adnexa not well-visualized. Urinary bladder distends normally. Moderate osseous demineralization noted. Degenerative change throughout the thoracic spine with no high-grade compression fracture. No displaced sacral fracture. Surgical hardware in the right hip at the edge of the [id number]. No displaced pelvic fracture identified. Obturator ring symmetric. Pubic symphysis not widened. Sacroiliac joints patent. IMPRESSION: 1. No CT evidence of an acute or traumatic abnormality in the abdomen or pelvis. 2. None acute findings noted above. Electronically signed by Bárbara Oneill 09-10-2025 6:[address] 09/10/25 16:50 EXAM: CT cervical spine CLINICAL HISTORY: Fall, laceration on back of head TECHNIQUE: Contiguous axial images were obtained through the cervical spine without the use of intravenous contrast. Sagittal and coronal reformations are supplied. PRIORS: 03/15/2025 FINDINGS: Dental amalgam create significant beam hardening artifact diminishing image quality. No pneumothorax in the lung apices. Moderate osseous demineralization noted. Lordotic straightening is noted. No acute cervical spine fracture or facet dislocation. Moderate degenerative change present throughout the mid to lower spine, unchanged. No prevertebral soft tissue swelling. Visualized trachea is patent. IMPRESSION: No CT evidence of an acute osseous abnormality. Electronically signed by Bárbara Oneill 09-10-2025 6:[address] 09/10/25 16:50 EXAMINATION: Chest CT with CLINICAL HISTORY: Arrived via EMS, unwitnessed fall found on bathroom floor by staff, laceration back of head TECHNIQUE: Contiguous axial images were obtained through the chest with the use of intravenous contrast. Sagittal and coronal reformations are supplied. COMPARISON: CT October 01, 2024 FINDINGS: Lung volumes mildly diminished. Motion artifact degrades image quality. No pneumothorax. Small bilateral pleural effusions are present, progressed in the interval. Bilateral subpleural reticular markings, unchanged. No pulmonary contusion or large area of airspace consolidation. No dominant mass. Trachea mainstem bronchi are patent. Aorta is normal in size and morphology. Moderately enlarged cardiac silhouette noted. No adenopathy. No subcutaneous hematoma. No pericardial effusion. Moderate osseous demineralization is present. Moderate kyphosis. No high-grade thoracic vertebral body compression fracture. No facet dislocation. No sternal or rib fracture. Abdomen CT dictated under separate heading. IMPRESSION: 1. No CT evidence of an acute or traumatic cardiopulmonary process. 2. Small to moderate bilateral pleural effusions, mildly progressed. 3. Cardiomegaly, unchanged. Electronically signed by Bárbara Oneill 09-10-2025 6:[address] 09/10/25 16:50 Technique: Axial computed tomography images were obtained of the brain without intravenous contrast. Findings: There is diffuse cerebral atrophy, within expected limits for the patient's age. Areas of decreased attenuation are seen within the periventricular white matter, likely representing chronic small vessel ischemic disease. There is no definite sign of acute or old infarction. No intracranial hemorrhage is evident. No definite mass lesion is seen on this noncontrast examination. There is no midline shift or other form of herniation. No hydrocephalus is seen. No fracture is identified. The orbits and the visualized paranasal sinuses appear unremarkable. The mastoid air cells appear clear. There is a left parietal scalp hematoma Impression: 1. Cerebral atrophy and chronic small vessel ischemic disease 2. No sign of intracranial hemorrhage 3. Left parietal scalp hematoma Electronically signed by Lucius Yañez 09-10-2025 6:06 PM Discharge Plan Visit Data Chief Complaint: Fall ED Provider: Kendrick Lam Discharge Problem: Fall, Atrial fibrillation with rapid ventricular response, Bilateral lower leg cellulitis, Laceration of occipital scalp Patient Disposition: Being Evaluated by Hospitalist Condition: Fair Discharge Instructions Interventions: ED Discharge Assessment Last Done: 09/10/25 21:32
[2025-09-10 17:05] LABS: Hematocrit (blood only) 34.9 % (37.0-47.0); Hemoglobin 10.8 g/dl (12.0-16.0); Immature Granulocytes # (auto) 0.03 K/uL (0.01-0.20); Immature Granulocytes % (auto) 0.4 %; Mean Corpuscular Hemoglobin 27.6 pg (25.0-34.0); Mean Corpuscular Volume 89.3 fL (80.0-100.0); Platelet Count 268 K/uL (130-400); RDW Standard Deviation 46.5 fL (36.4-46.3); Red Blood Count 3.91 M/uL (4.20-5.40); White Blood Count 7.24 K/ul (4.8-10.8)
[2025-09-10] MEDS: OPTIRAY 320 100ml IV ONE (17:17)
[2025-09-10 17:23] LABS: Alanine Aminotransferase 14.0 U/L (7-52); Albumin Globulin Ratio 1.1 (0.9-2); Albumin Level 3.9 gm/dl (3.4-5.0); Alkaline Phosphatase 221.0 U/L (34-104); Anion Gap 7.0 (3-11); Bilirubin,Total 1.2 mg/dl (0.2-1.0); Blood Urea Nitrogen 22.0 mg/dl (6-23); Calcium 8.9 mg/dl (8.6-10.3); Carbon Dioxide 27.0 mmol/L (21-32); Chloride 102.0 mmol/L (98-107); Creatine Kinase 42.0 U/L (26-192); Creatinine Clr Calc Pharmacy 35.4 ml/min; Globulin 3.7 gm/dl (2.5-4.0); Glucose 140.0 mg/dl (70-99(Fasting)); Lipase 20.0 U/L (11-82); Potassium 3.8 mmol/L (3.5-5.1); Sodium 136.0 mmol/L (136-145); Total Protein 7.6 gm/dl (6.0-8.3)
[2025-09-10 17:35] LABS: INR 1.2 (0.9-1.1); Partial Thromboplastin Time 29 Seconds (21-31); Prothrombin Time 12.1 Seconds (9.0-12.0)
--- NOTE | 2025-09-10 18:18 | XRay Report ---
Clinical History: Trauma Technique: 2 frontal views of the chest were obtained Findings: There are no confluent pulmonary infiltrates. The heart is enlarged. No pleural effusion or pneumothorax is seen. There is diffuse interstitial prominence, concerning for pulmonary edema There is internal fixation of the left humerus Impression: Cardiomegaly and pulmonary edema ACT 112: Positive. There are findings on this exam that require communication between the performing entity and the patient following Patient Test Result Information Act ([place] ACT 112) guidelines. Electronically signed by Lucius Yañez 09-10-2025 6:05 PM
--- NOTE | 2025-09-10 18:18 | CT Scan Report ---
EXAMINATION: Chest CT with CLINICAL HISTORY: Arrived via EMS, unwitnessed fall found on bathroom floor by staff, laceration back of head TECHNIQUE: Contiguous axial images were obtained through the chest with the use of intravenous contrast. Sagittal and coronal reformations are supplied. COMPARISON: CT October 01, 2024 FINDINGS: Lung volumes mildly diminished. Motion artifact degrades image quality. No pneumothorax. Small bilateral pleural effusions are present, progressed in the interval. Bilateral subpleural reticular markings, unchanged. No pulmonary contusion or large area of airspace consolidation. No dominant mass. Trachea mainstem bronchi are patent. Aorta is normal in size and morphology. Moderately enlarged cardiac silhouette noted. No adenopathy. No subcutaneous hematoma. No pericardial effusion. Moderate osseous demineralization is present. Moderate kyphosis. No high-grade thoracic vertebral body compression fracture. No facet dislocation. No sternal or rib fracture. Abdomen CT dictated under separate heading. IMPRESSION: 1. No CT evidence of an acute or traumatic cardiopulmonary process. 2. Small to moderate bilateral pleural effusions, mildly progressed. 3. Cardiomegaly, unchanged. Electronically signed by Bárbara Oneill 09-10-2025 6:15 PM
--- NOTE | 2025-09-10 18:18 | CT Scan Report ---
Technique: Axial computed tomography images were obtained of the brain without intravenous contrast. Findings: There is diffuse cerebral atrophy, within expected limits for the patient's age. Areas of decreased attenuation are seen within the periventricular white matter, likely representing chronic small vessel ischemic disease. There is no definite sign of acute or old infarction. No intracranial hemorrhage is evident. No definite mass lesion is seen on this noncontrast examination. There is no midline shift or other form of herniation. No hydrocephalus is seen. No fracture is identified. The orbits and the visualized paranasal sinuses appear unremarkable. The mastoid air cells appear clear. There is a left parietal scalp hematoma Impression: 1. Cerebral atrophy and chronic small vessel ischemic disease 2. No sign of intracranial hemorrhage 3. Left parietal scalp hematoma Electronically signed by Lucius Yañez 09-10-2025 6:06 PM
--- NOTE | 2025-09-10 18:19 | CT Scan Report ---
EXAMINATION: Abdomen and pelvis CT with CLINICAL HISTORY: Fall unwitnessed PRIORS: 07/18/2025, 2023 TECHNIQUE: Contiguous axial images were obtained through the abdomen and pelvis with the use of intravenous contrast. Sagittal and coronal reformations are supplied. FINDINGS: Small to moderate bilateral pleural effusions. No hemoperitoneum or retroperitoneal hemorrhage. No solid organ laceration or subcapsular hematoma. Liver enhances heterogeneous leak which could be on the basis of timing of contrast. The portal vein, under distended stomach, spleen, adrenals, aorta and IVC are morphologically unremarkable. Kidneys enhance symmetrically with bilateral renal cortical thinning, right greater than left. Moderate atherosclerotic disease of the abdominal aorta noted. No dilated loops of bowel or bowel wall hematoma. A large amount of formed stool present throughout the colon. No bowel obstruction or pericolonic inflammatory change. Appendix is normal. Atrophic uterus is present. Adnexa not well-visualized. Urinary bladder distends normally. Moderate osseous demineralization noted. Degenerative change throughout the thoracic spine with no high-grade compression fracture. No displaced sacral fracture. Surgical hardware in the right hip at the edge of the [id number]. No displaced pelvic fracture identified. Obturator ring symmetric. Pubic symphysis not widened. Sacroiliac joints patent. IMPRESSION: 1. No CT evidence of an acute or traumatic abnormality in the abdomen or pelvis. 2. None acute findings noted above. Electronically signed by Bárbara Oneill 09-10-2025 6:19 PM
--- NOTE | 2025-09-10 18:29 | CT Scan Report ---
EXAM: CT cervical spine CLINICAL HISTORY: Fall, laceration on back of head TECHNIQUE: Contiguous axial images were obtained through the cervical spine without the use of intravenous contrast. Sagittal and coronal reformations are supplied. PRIORS: 03/15/2025 FINDINGS: Dental amalgam create significant beam hardening artifact diminishing image quality. No pneumothorax in the lung apices. Moderate osseous demineralization noted. Lordotic straightening is noted. No acute cervical spine fracture or facet dislocation. Moderate degenerative change present throughout the mid to lower spine, unchanged. No prevertebral soft tissue swelling. Visualized trachea is patent. IMPRESSION: No CT evidence of an acute osseous abnormality. Electronically signed by Bárbara Oneill 09-10-2025 6:28 PM
[2025-09-10] MEDS: ACETAMINOPHEN 1,000 MG/100 ML VIAL IV STA (19:26)
[2025-09-10] MEDS: cefTRIAXone SODIUM 2,000 MG/50 ML BAG IV STA (20:20)
[2025-09-10] MEDS: DOXYCYCLINE HYCLATE 100 MG CAP PO STA (20:20)
[2025-09-10] MEDS ORDERED: POLYETHYLENE (MIRALAX) 17 GM PACK PO PRN (22:05)
[2025-09-10] MEDS ORDERED: NON-FORMULARY MEDICATION (Vit C,E-Zn-Coppr-Lutein-Zeaxan [Preservision Areds-2] 250-90-40- PO SCH (22:05)
[2025-09-10] MEDS ORDERED: ACETAMINOPHEN 325 MG TAB PO PRN (22:05)
[2025-09-10] MEDS ORDERED: METOPROLOL TARTRATE 1 MG/ML VIAL IV PRN (22:05)
[2025-09-10] MEDS ORDERED: NITROGLYCERIN SL 0.4 MG/TAB TAB SL PRN (22:05)
[2025-09-10] MEDS: APIXABAN 5 MG TABLET PO SCH (23:00)
[2025-09-10] MEDS: lamoTRIgine 100 MG TAB PO SCH (23:00)
[2025-09-10] MEDS: HYDROmorphone INJ 0.5 MG/0.5 ML SYR IV PRN (23:20)
[2025-09-10 23:37] LABS: Appearance Urine Clear (Clear); Bacteria Urine Automated None Seen (None Seen); Cast Urine Automated 0-2 /lpf (0-2); Epithelial Cell Urine Auto 0-2 /hpf (0-2); Glucose Urine UA Negative (Negative); RBC Urine Automated 0-2 /hpf (0-2); WBC Urine Automated 0-5 /hpf (0-5)
--- NOTE | 2025-09-11 00:41 | History & Physical Report ---
Date of Service September 10, 2025 Assessment & Plan (1) Fall: Plan: 84-year-old female with past med history significant for hypothyroidism, history of systolic CHF, nonrheumatic aortic valve stenosis, GERD, CKD stage IIIa, history of generalized weakness, history of lipodermatosclerosis of lower extremities, kyphosis of spine, osteoporosis, macular degeneration, postherpetic polyneuropathy, essential tremor, inguinal lymphadenopathy, depression, gait disturbance, history of COVID, history of MRSA screen positive, spinal stenosis of cervical region,, comes from [facility] after fall. Patient says she is mostly wheelchair-bound. Patient says she can walk few steps. Patient says she got up and tried to on TV when her legs gave away and fell backwards and hit her head. Patient states she was able to get up. As per the ER patient was found on the floor as staff heard a sound and when checked was found on the bathroom floor. No loss of consciousness. There was bleeding in the back of the head. She was found to have some laceration in the occipital region status post dustin in the ER. Patient complains of pain at the head injury site. Vision is okay. No runny nose or sore throat. No cough. Afebrile. States appetite is good. Denies any difficulty swallowing. Denies chest pain. No shortness of breath. Denies back pain. Denies abdominal pain. Denies pain in the legs. No nausea. Normal bowel and bladder movements. Patient complains of some wounds to the lower extremities. In the ER patient was also found to be in rapid A-fib. Fall Has laceration on the occipital region of the head status post dustin in ER, needs follow-up CT head left parietal scalp hematoma. No signs of intracranial hemorrhage CT chest no CT evidence of acute traumatic process. Small to moderate bilateral pleural effusions CT cervical spine no acute findings CT abdomen pelvis no acute findings PT OT when stable Rapid A-fib On initial presentation in the ER Currently improved Continue home metoprolol succinate and Eliquis IV Lopressor as needed Will monitor Acute on chronic diastolic CHF hx of systolic chf Valvular heart disease Moderate aortic stenosis echo from 06/2025 shows ef 65% and moderate Aortic stenosis and Moderate TR On home Lasix 20 mg every other day Placed on Lasix 20 mg IV daily Will monitor Bilateral lower extremity cellulitis Chronic venous stasis Recently also was treated for cellulitis Lower extremity superficial wounds seen Empiric Rocephin and doxycycline Wound care consult Monitor response Hypothyroidism On Synthyroid GERD On omeprazole Depression Paroxetine and Lamictal Anxiety On hydroxyzine Ambulatory dysfunction Wheelchair-bound as per patient States can walk few steps PT OT when stable CKD stage III A Creatinine 1 Will follow labs Anemia Hemoglobin 10.8 Seems around baseline Will monitor DVT prophylaxis On Eliquis Disposition Telemetry Full code History of Present Illness Chief Complaint: Status post fall Primary Care Provider: Dion Choe DO 84-year-old female with past med history significant for hypothyroidism, history of systolic CHF, nonrheumatic aortic valve stenosis, GERD, CKD stage IIIa, history of generalized weakness, history of lipodermatosclerosis of lower extremities, kyphosis of spine, osteoporosis, macular degeneration, postherpetic polyneuropathy, essential tremor, inguinal lymphadenopathy, depression, gait disturbance, history of COVID, history of MRSA screen positive, spinal stenosis of cervical region,, comes from [facility] after fall. Patient says she is mostly wheelchair-bound. Patient says she can walk few steps. Patient says she got up and tried to on TV when her legs gave away and fell backwards and hit her head. Patient states she was able to get up. As per the ER patient was found on the floor as staff heard a sound and when checked was found on the bathroom floor. No loss of consciousness. There was bleeding in the back of the head. She was found to have some laceration in the occipital region status post dustin in the ER. Patient complains of pain at the head injury site. Vision is okay. No runny nose or sore throat. No cough. Afebrile. States appetite is good. Denies any difficulty swallowing. Denies c hest pain. No shortness of breath. Denies back pain. Denies abdominal pain. Denies pain in the legs. No nausea. Normal bowel and bladder movements. Patient complains of some wounds to the lower extremities. In the ER patient was also found to be in rapid A-fib. Past medical history. As mentioned above. Past surgical history. Leg trochanteric fracture treatment. Social history. Current living [facility]. No smoking. No alcohol use. No drug use. Family history. Mother had arthritis. Paternal aunt had breast cancer. Maternal aunt had breast cancer. Paternal aunt had non-Hodgkin's lymphoma. Father had prostate cancer. Paternal aunt had diabetes. Paternal aunts had hypertension. Allergies Allergy/AdvReac Type Severity Reaction Status Date / Time No Known Allergies Allergy Verified 09/10/25 18:59 Home Medications Medication Instructions Recorded Confirmed Type hydroxyzine HCl 10 mg tablet 10 - 20 mg PO DIRECTED PRN 01/13/24 09/10/25 History Anxiety/Mood loperamide 2 mg capsule (Imodium 2 mg PO DIRECTED 09/30/24 09/10/25 History A-D) apixaban 5 mg tablet (Eliquis) 5 mg PO BID #60 tabs 07/26/25 09/10/25 Rx calcium 500 mg (as 1 tab PO DAILY #30 tabs 07/26/25 09/10/25 Rx carbonate)-vitamin D3 5 mcg (200 unit) tablet (Oyster Shell Calcium-Vitamin D3) furosemide 20 mg tablet (Lasix) 20 mg PO Q OTHER DAY #30 tabs 07/26/25 09/10/25 Rx hydroxyzine HCl 10 mg tablet 10 mg PO BID #60 tabs 07/26/25 09/10/25 Rx hydroxyzine HCl 10 mg tablet 20 mg (2 x 10 mg) PO HS #30 tabs 07/26/25 09/10/25 Rx lamotrigine 200 mg tablet 200 mg PO HS 30 days #30 tabs 07/26/25 09/10/25 Rx melatonin 3 mg disintegrating 3 mg PO HS PRN Insomnia #30 tabs 07/26/25 09/10/25 Rx tablet metoprolol succinate 100 mg 100 mg PO QAM #30 tabs 07/26/25 09/10/25 Rx tablet,extended release 24 hr multivitamin (Daily-Priscila tablet) 1 tab PO DAILY #30 tabs 07/26/25 09/10/25 Rx omeprazole 40 mg capsule,delayed 40 mg PO DAILYBB #30 caps 07/26/25 09/10/25 Rx release oxybutynin chloride 5 mg tablet 2.5 mg (1/2 x 5 mg) PO BID #30 tabs 07/26/25 09/10/25 Rx paroxetine HCl 30 mg tablet 30 mg PO HS #30 tabs 07/26/25 09/10/25 Rx tramadol 50 mg tablet 50 mg PO BID PRN pain #10 tabs 07/26/25 09/10/25 Rx vit C 250 mg-vit E 90 mg-zinc 40 1 tab PO BID #30 caps 07/26/25 09/10/25 Rx mg-copper 1 [id number] capsule (PreserVision AREDS-2) levothyroxine 75 mcg tablet 75 mcg PO DAILYBB 09/10/25 09/10/25 History naproxen sodium 220 mg tablet 220 mg PO BID PRN Pain 09/10/25 09/10/25 History Past Med/Surg History Problem List (Updated 09/10/25 @ 18:54 by Kendrick Lam M.D.) Laceration of occipital scalp (Acute) Fall (Acute) Venous stasis ulcer of right thigh limited to breakdown of skin Acute UTI (Acute) Cervical strain, acute Chronic heart failure with preserved ejection fraction Venous stasis dermatitis of both lower extremities Syncope, cardiogenic Laceration of scalp (Acute) Atrial fibrillation with rapid ventricular response (Acute) Fall from standing (Acute) Cholelithiasis Bilateral lower leg cellulitis (Acute) Aortic stenosis Depression with anxiety Sensory polyneuropathy Essential tremor Fracture, thoracic vertebra (Acute) COVID-19 virus infection Paroxysmal atrial fibrillation with RVR (Acute) Postherpetic neuralgia (Chronic) Medical History HTN (hypertension) Osteoarthritis of right knee Stasis dermatitis Elevated liver enzymes Degenerative arthritis Anxiety Surgical History History of hip surgery 02/2024 - right femur fracture s/p intermedullary anai S/P cataract surgery Family History Father , age 76 of metastatic prostate cancer Cancer Prostate cancer Heart disease Mother , age 93 Rheumatoid arthritis Social History Smoking Status: Never smoker Second Hand Exposure: No; Do You Dip or Chew Tobacco: No; Tobacco Cessation Education Requested by Patient: No Hx Alcohol Use: No Hx Substance Use: No Preferred Language: Czech Communication Ability: Effective Recreational Facilities Motel Manager Required: No Beliefs That Will Affect Care: None marital status: Single Current Living Situation: Personal Care Facility Current Living Situation Comment: [facility] current occupational status: retired 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 ENT- oropharynx clear Neck- supple, no JVD. Lungs- clear to auscultation no wheezing or crackles Heart- irregular rhythm; no murmur, no gallop. Abdomen- normal bowel sounds, soft, nontender, no distension Extremities- b/l lower extremity edema and erythema seen with superficial wounds seen in guerrero regions Neuro- alert, oriented PERRL, no facial palsy; no dysarthria; moves extremities Results & Data Results & Data Vital Signs (Past 12 Hours) Vital Signs Temp Pulse Pulse Resp BP BP Pulse Ox 09/10/25 20:00 101 H 16 126/87 94 09/10/25 19:00 113 H 16 133/90 93 09/10/25 18:39 118 H 18 140/98 96 09/10/25 18:36 97 09/10/25 17:39 108 H 19 140/98 97 09/10/25 16:58 86 09/10/25 16:40 37 C 104 H 19 129/84 100 O2 Del Method 09/10/25 20:00 Room Air 09/10/25 19:00 Room Air 09/10/25 18:39 Room Air 09/10/25 18:36 Room Air 09/10/25 17:39 Room Air 09/10/25 16:58 09/10/25 16:40 Room Air Diagnostic Findings Laboratory Results WBC 7.24 K/ul (4.8-10.8) 09/10/25 16:46 RBC 3.91 M/uL (4.20-5.40) L 09/10/25 16:46 Hgb 10.8 g/dl (12.0-16.0) L 09/10/25 16:46 POC Hgb 12.2 g/dl (12.0-16.0) 09/10/25 17:06 Hct 34.9 % (37.0-47.0) L 09/10/25 16:46 POC Hct 36 % (37-47) L 09/10/25 17:06 MCV 89.3 fL (80.0-100.0) 09/10/25 16:46 MCH 27.6 pg (25.0-34.0) 09/10/25 16:46 MCHC 30.9 g/dL (32.0-36.0) L 09/10/25 16:46 RDW Std Deviation 46.5 fL (36.4-46.3) H 09/10/25 16:46 RDW Coeff of Benita 14.3 % (11.5-14.5) 09/10/25 16:46 Plt Count 268 K/uL (130-400) 09/10/25 16:46 MPV 8.5 fL (9.4-12.4) L 09/10/25 16:46 Immature Gran % (Auto) 0.4 % 09/10/25 16:46 Neut % (Auto) 65.1 % 09/10/25 16:46 Lymph % (Auto) 20.2 % 09/10/25 16:46 Milam % (Auto) 11.0 % 09/10/25 16:46 Eos % (Auto) 2.6 % 09/10/25 16:46 Baso % (Auto) 0.7 % 09/10/25 16:46 Neut # (Auto) 4.71 K/uL (1.40-6.50) 09/10/25 16:46 Lymph # (Auto) 1.46 K/uL (1.20-3.40) 09/10/25 16:46 Milam # (Auto) 0.80 K/uL (0.11-0.59) H 09/10/25 16:46 Eos # (Auto) 0.19 K/uL (0.00-0.50) 09/10/25 16:46 Baso # (Auto) 0.05 K/uL (0.00-0.20) 09/10/25 16:46 Immature Gran # (Auto) 0.03 K/uL (0.01-0.20) 09/10/25 16:46 PT 12.1 Seconds (9.0-12.0) H 09/10/25 16:46 INR 1.2 (0.9-1.1) H 09/10/25 16:46 APTT 29 Seconds (21-31) 09/10/25 16:46 PTT Ratio 1.1 09/10/25 16:46 POC Sodium 139 mmol/L (135-144) 09/10/25 17:06 Sodium 136 mmol/L (136-145) 09/10/25 16:46 POC Potassium 3.9 mmol/L (3.3-5.0) 09/10/25 17:06 Potassium 3.8 mmol/L (3.5-5.1) 09/10/25 16:46 POC Chloride 101 mmol/L (101-112) 09/10/25 17:06 Chloride 102 mmol/L (98-107) 09/10/25 16:46 Carbon Dioxide 27 mmol/L (21-32) 09/10/25 16:46 POC Total CO2 25 mmol/L (24-31) 09/10/25 17:06 Anion Gap 7 (3-11) 09/10/25 16:46 POC Anion Gap 17.0 mmol/L (16-25) 09/10/25 17:06 POC BUN 22 mg/dl (7-18) H 09/10/25 17:06 BUN 22 mg/dl (6-23) 09/10/25 16:46 Creatinine 1.03 mg/dl (0.6-1.2) 09/10/25 16:46 POC Creatinine 1.2 mg/dl (0.6-1.3) 09/10/25 17:06 Est Cr Clr Drug Dosing 35.4 ml/min 09/10/25 16:46 eGFR 53.95 09/10/25 16:46 BUN/Creatinine Ratio 21.4 (10-20) H 09/10/25 16:46 Glucose 140 mg/dl (70-99(Fasting)) H 09/10/25 16:46 POC Glucose (other) 139 mg/dl (70-99) H 09/10/25 17:06 Calcium 8.9 mg/dl (8.6-10.3) 09/10/25 16:46 POC Ioniz Calcium Clint 1.15 mmol/l (1.12-1.32) 09/10/25 17:06 Total Bilirubin 1.2 mg/dl (0.2-1.0) H 09/10/25 16:46 AST 20 U/L (13-39) 09/10/25 16:46 ALT 14 U/L (7-52) 09/10/25 16:46 Alkaline Phosphatase 221 U/L (34-104) H 09/10/25 16:46 Total Creatine Kinase 42 U/L (26-192) 09/10/25 16:46 Troponin I High Sens 9.3 pg/ml (0-14) 09/10/25 16:46 Total Protein 7.6 gm/dl (6.0-8.3) 09/10/25 16:46 Albumin 3.9 gm/dl (3.4-5.0) 09/10/25 16:46 Globulin 3.7 gm/dl (2.5-4.0) 09/10/25 16:46 Albumin/Globulin Ratio 1.1 (0.9-2) 09/10/25 16:46 Lipase 20 U/L (11-82) 09/10/25 16:46 Urine Color Yellow 09/10/25 23:10 Urine Appearance Clear (Clear) 09/10/25 23:10 Urine pH 5.5 (4.5-7.5) 09/10/25 23:10 Ur Specific [place] 1.044 (1.000-1.030) H 09/10/25 23:10 Urine Protein 2+ (Negative) H 09/10/25 23:10 Urine Glucose (UA) Negative (Negative) 09/10/25 23:10 Urine Ketones Negative (Negative) 09/10/25 23:10 Urine Blood Negative (Negative) 09/10/25 23:10 Urine Nitrite Negative (Negative) 09/10/25 23:10 Urine Bilirubin Negative (Negative) 09/10/25 23:10 Urine Urobilinogen Negative (Negative) 09/10/25 23:10 Ur Leukocyte Esterase Negative (Negative) 09/10/25 23:10 Urine WBC (Auto) 0-5 /hpf (0-5) 09/10/25 23:10 Urine RBC (Auto) 0-2 /hpf (0-2) 09/10/25 23:10 U Hyaline Cast (Auto) 0-2 /lpf (0-2) 09/10/25 23:10 U Epithel Cells (Auto) 0-2 /hpf (0-2) 09/10/25 23:10 Urine Bacteria (Auto) None Seen (None Seen) 09/10/25 23:10 Urine Comment 09/10/25 23:10 Impressions Chest X-Ray 09/10/25 16:49 Clinical History: Trauma Technique: 2 frontal views of the chest were obtained Findings: There are no confluent pulmonary infiltrates. The heart is enlarged. No pleural effusion or pneumothorax is seen. There is diffuse interstitial prominence, concerning for pulmonary edema There is internal fixation of the left humerus Impression: Cardiomegaly and pulmonary edema ACT 112: Positive. There are findings on this exam that require communication between the performing entity and the patient following Patient Test Result Information Act ([place] ACT 112) guidelines. Electronically signed by Lucius Yañez 09-10-2025 6:05 PM Abdomen/Pelvis CT 09/10/25 16:50 EXAMINATION: Abdomen and pelvis CT with CLINICAL HISTORY: Fall unwitnessed PRIORS: 07/18/2025, 2023 TECHNIQUE: Contiguous axial images were obtained through the abdomen and pelvis with the use of intravenous contrast. Sagittal and coronal reformations are supplied. FINDINGS: Small to moderate bilateral pleural effusions. No hemoperitoneum or retroperitoneal hemorrhage. No solid organ laceration or subcapsular hematoma. Liver enhances heterogeneous leak which could be on the basis of timing of contrast. The portal vein, under distended stomach, spleen, adrenals, aorta and IVC are morphologically unremarkable. Kidneys enhance symmetrically with bilateral renal cortical thinning, right greater than left. Moderate atherosclerotic disease of the abdominal aorta noted. No dilated loops of bowel or bowel wall hematoma. A large amount of formed stool present throughout the colon. No bowel obstruction or pericolonic inflammatory change. Appendix is normal. Atrophic uterus is present. Adnexa not well-visualized. Urinary bladder distends normally. Moderate osseous demineralization noted. Degenerative change throughout the thoracic spine with no high-grade compression fracture. No displaced sacral fracture. Surgical hardware in the right hip at the edge of the [id number]. No displaced pelvic fracture identified. Obturator ring symmetric. Pubic symphysis not widened. Sacroiliac joints patent. IMPRESSION: 1. No CT evidence of an acute or traumatic abnormality in the abdomen or pelvis. 2. None acute findings noted above. Electronically signed by Bárbara Oneill 09-10-2025 6:[address] 09/10/25 16:50 EXAM: CT cervical spine CLINICAL HISTORY: Fall, laceration on back of head TECHNIQUE: Contiguous axial images were obtained through the cervical spine without the use of intravenous contrast. Sagittal and coronal reformations are supplied. PRIORS: 03/15/2025 FINDINGS: Dental amalgam create significant beam hardening artifact diminishing image quality. No pneumothorax in the lung apices. Moderate osseous demineralization noted. Lordotic straightening is noted. No acute cervical spine fracture or facet dislocation. Moderate degenerative change present throughout the mid to lower spine, unchanged. No prevertebral soft tissue swelling. Visualized trachea is patent. IMPRESSION: No CT evidence of an acute osseous abnormality. Electronically signed by Bárbara Oneill 09-10-2025 6:[address] 09/10/25 16:50 EXAMINATION: Chest CT with CLINICAL HISTORY: Arrived via EMS, unwitnessed fall found on bathroom floor by staff, laceration back of head TECHNIQUE: Contiguous axial images were obtained through the chest with the use of intravenous contrast. Sagittal and coronal reformations are supplied. COMPARISON: CT October 01, 2024 FINDINGS: Lung volumes mildly diminished. Motion artifact degrades image quality. No pneumothorax. Small bilateral pleural effusions are present, progressed in the interval. Bilateral subpleural reticular markings, unchanged. No pulmonary contusion or large area of airspace consolidation. No dominant mass. Trachea mainstem bronchi are patent. Aorta is normal in size and morphology. Moderately enlarged cardiac silhouette noted. No adenopathy. No subcutaneous hematoma. No pericardial effusion. Moderate osseous demineralization is present. Moderate kyphosis. No high-grade thoracic vertebral body compression fracture. No facet dislocation. No sternal or rib fracture. Abdomen CT dictated under separate heading. IMPRESSION: 1. No CT evidence of an acute or traumatic cardiopulmonary process. 2. Small to moderate bilateral pleural effusions, mildly progressed. 3. Cardiomegaly, unchanged. Electronically signed by Bárbara Oneill 09-10-2025 6:[address] 09/10/25 16:50 Technique: Axial computed tomography images were obtained of the brain without intravenous contrast. Findings: There is diffuse cerebral atrophy, within expected limits for the patient's age. Areas of decreased attenuation are seen within the periventricular white matter, likely representing chronic small vessel ischemic disease. There is no definite sign of acute or old infarction. No intracranial hemorrhage is evident. No definite mass lesion is seen on this noncontrast examination. There is no midline shift or other form of herniation. No hydrocephalus is seen. No fracture is identified. The orbits and the visualized paranasal sinuses appear unremarkable. The mastoid air cells appear clear. There is a left parietal scalp hematoma Impression: 1. Cerebral atrophy and chronic small vessel ischemic disease 2. No sign of intracranial hemorrhage 3. Left parietal scalp hematoma Electronically signed by Lucius Yañez 09-10-2025 6:06 PM Code Status & VTE Plan VTE Prophylaxis Plan VTE Prophylaxis will be ordered: Yes
[2025-09-11] MEDS: FUROSEMIDE INJ 20 MG/2 ML VIAL IV ONE (01:14)
[2025-09-11] MEDS: NYSTATIN POWDER 15GM BTL EXT SCH (04:00)
[2025-09-11] MEDS: LEVOTHYROXINE SODIUM 75 MCG TABLET PO SCH (05:52)
[2025-09-11 07:13] LABS: Hematocrit (blood only) 35.1 % (37.0-47.0); Hemoglobin 11.0 g/dl (12.0-16.0); Immature Granulocytes # (auto) 0.02 K/uL (0.01-0.20); Immature Granulocytes % (auto) 0.3 %; Mean Corpuscular Hemoglobin 28.6 pg (25.0-34.0); Mean Corpuscular Volume 91.4 fL (80.0-100.0); Platelet Count 266 K/uL (130-400); RDW Standard Deviation 47.8 fL (36.4-46.3); Red Blood Count 3.84 M/uL (4.20-5.40); White Blood Count 6.90 K/ul (4.8-10.8)
[2025-09-11 07:25] LABS: Anion Gap 7.0 (3-11); Blood Urea Nitrogen 22.0 mg/dl (6-23); Calcium 9.0 mg/dl (8.6-10.3); Carbon Dioxide 29.0 mmol/L (21-32); Chloride 102.0 mmol/L (98-107); Creatinine Clr Calc Pharmacy 34.8 ml/min; Glucose 112.0 mg/dl (70-99(Fasting)); Magnesium 1.9 mg/dl (1.7-2.4); Potassium 3.7 mmol/L (3.5-5.1); Sodium 138.0 mmol/L (136-145)
[2025-09-11] MEDS: FUROSEMIDE INJ 20 MG/2 ML VIAL IV SCH (08:40)
[2025-09-11] MEDS: DOXYCYCLINE HYCLATE 100 MG CAP PO SCH (08:41)
[2025-09-11] MEDS: DOCUSATE SODIUM 100 MG CAP PO SCH (08:41)
[2025-09-11] MEDS: CALCIUM 600MG + VIT D 400 IU TAB PO SCH (08:41)
[2025-09-11] MEDS: METOPROLOL SUCC 50MG EXT REL TAB PO SCH (08:41)
[2025-09-11] MEDS: CEROVITE ADV FORMULA TAB PO SCH (08:41)
[2025-09-11 09:23] LABS: A calco-baum cmplx NotReported Not Detected (NotDetected); Bact fragilis Not Reported Not Detected (NotDetected); Blood Culture Id Panel See PCR Comment (NotDetected); C auris Not Reported Not Detected (NotDetected); Calbicans Not Reported Not Detected (NotDetected); Candida glabrata Not Reported Not Detected (NotDetected); Candida krusei Not Reported Not Detected (NotDetected); Cneoformans/gatti Not Reported Not Detected (NotDetected); Cparapsilosis Not Reported Not Detected (NotDetected); Ctropicalis Not Reported Not Detected (NotDetected); E cloacae compx Not Reported Not Detected (NotDetected); Efaecalis Not Reported Not Detected (NotDetected); Efaecium Not Reported Not Detected (NotDetected); Enterobacterales Not Reported Not Detected (NotDetected); Escherichia coli Not Reported Not Detected (NotDetected); H influenzae Not Reported Not Detected (NotDetected); K aerogenes Not Reported Not Detected (NotDetected); Koxytoca Not Reported Not Detected (NotDetected); Kpneumoniae grp Not Reported Not Detected (NotDetected); Lmonocyt Not Reported Not Detected (NotDetected); N meningitidis Not Reported Not Detected (NotDetected); P aeruginosa Not Reported Not Detected (NotDetected); Proteus spp Not Reported Not Detected (NotDetected); Salmonella spp Not Reported Not Detected (NotDetected); Staph lugdunensis Not Reported Not Detected (NotDetected); Staph spp. Not Reported Not Detected (NotDetected); Staphaureus Not Reported Not Detected (NotDetected); Staphepi Not Reported Not Detected (NotDetected); Stenmaltophilia Not Reported Not Detected (NotDetected); Strep agal(GrpB) Not Reported Not Detected (NotDetected); Strep pneum Not Reported Not Detected (NotDetected); Strep pyog (GrpA) Not Reported Not Detected (NotDetected); Strep spp Not Reported DETECTED (NotDetected)
[2025-09-11 09:31] LABS: Streptococcus spp DETECTED (NotDetected)
--- NOTE | 2025-09-11 12:18 | Hospitalist Progress Note ---
Date of Service September 11, 2025 Assessment & Plan (1) Fall: Plan: 84-year-old female with past med history significant for hypothyroidism, history of systolic CHF, nonrheumatic aortic valve stenosis, GERD, CKD stage IIIa, history of generalized weakness, history of lipodermatosclerosis of lower extremities, kyphosis of spine, osteoporosis, macular degeneration, postherpetic polyneuropathy, essential tremor, inguinal lymphadenopathy, depression, gait disturbance, history of COVID, history of MRSA screen positive, spinal stenosis of cervical region,, comes from [facility] after fall. Patient says she is mostly wheelchair-bound. Patient says she can walk few steps. Patient says she got up and tried to on TV when her legs gave away and fell backwards and hit her head. Patient states she was able to get up. As per the ER patient was found on the floor as staff heard a sound and when checked was found on the bathroom floor. No loss of consciousness. There was bleeding in the back of the head. She was found to have some laceration in the occipital region status post dutsin in the ER. Patient complains of pain at the head injury site. Vision is okay. No runny nose or sore throat. No cough. Afebrile. States appetite is good. Denies any difficulty swallowing. Denies chest pain. No shortness of breath. Denies back pain. Denies abdominal pain. Denies pain in the legs. No nausea. Normal bowel and bladder movements. Patient complains of some wounds to the lower extremities. In the ER patient was also found to be in rapid A-fib. Fall Scalp laceration S/P Dustin in ED Left parietal scalp hematoma CT head Cerebral atrophy and chronic small vessel ischemic disease. No sign of intracranial hemorrhage. Left parietal scalp hematoma CT chest no CT evidence of acute traumatic process. Small to moderate bilateral pleural effusions CT cervical spine no acute findings CT abdomen pelvis no acute findings PT OT, fall precautions A-fib RVR H/O Afib Continue metoprolol succinate 100 mg daily Monitor and replete electrolytes as needed On Eliquis for anticoagulation IV Lopressor as needed Acute on chronic diastolic CHF Valvular heart disease Moderate aortic stenosis --Last ECHO in Jun 2025: EF 65 to 70%. No regional wall motion abnormality. Left atrium severely dilated. Right atrium moderately dilated. Moderate valvular aortic stenosis. Mild mitral regurgitation. Mild mitral stenosis. Moderate tricuspid regurgitation. Pulmonary artery systolic pressure estimated to be 70 mmHg. -- Hold p.o. Lasix Continue IV Lasix 20 mg daily for now Monitor volume status Continue metoprolol succinate Bilateral lower extremity cellulitis Chronic venous stasis Recently was treated for cellulitis as well Lower extremity superficial wounds Continue Empiric Rocephin and doxycycline Wound care consult Abnormal blood cultures 12/01: Growing gram-positive cocci in chains Continue empiric antibiotics as above Will consider further workup if needed Monitor Hypothyroidism Continue levothyroxine GERD Continue PPI Depression Paroxetine and Lamictal Anxiety On hydroxyzine Ambulatory dysfunction Wheelchair-bound as per patient Continue PT OT, fall precautions CKD stage III A Monitor renal function Avoid nephrotoxic agents as able Chronic anemia Hemoglobin at baseline Monitor DVT prophylaxis Eliquis CODE STATUS Full code Disposition PT OT prior to discharge Admission and Anticipated Discharge Date Admission Date: September 10, 2025 Subjective Patient is seen and examined at bedside States having some discomfort on scalp, leg pain associated with redness Less dyspnea today Denies any chest pain, nausea, vomiting, abdominal pain No other complaints Review of Systems Review of Systems: All systems reviewed & are unremarkable except as noted in Subjective Physical Exam Physical Exam: Physical Exam: Vitals signs as noted above General Appearance:Moderately built and nourished, no apparent distress, elderly Head: normocephalic, +traumatic ,+ scalp laceration/dustin Eyes: normal inspection, EOMI Neck: supple, Trachea midline Respiratory/Chest: Normal breath sounds, minimal basal crackles, No accessory muscle use Cardiovascular: Irregularly irregular, +murmur Abdomen/GI:Soft, Non tender, Bowel sounds present Extremities/Musculoskeletal:normal inspection, B/L LE erythema, warm, mild edema Neurologic/Psych:AAOX3, grossly no focal neurological deficits Skin: normal color, warm Results & Data Results & Data Vital Signs (Past 12 Hours) Vital Signs Temp Pulse Pulse Resp BP Pulse Ox O2 Del Method 09/11/25 11:41 36.5 C 90 20 105/56 L 85 L Room Air 09/11/25 08:13 36.6 C 86 19 97/65 L 90 Room Air 09/11/25 07:30 76 09/11/25 02:23 36.5 C 80 18 128/80 95 Room Air Laboratory Results Short CBC 09/10/25 09/11/25 Range/Units 16:46 06:01 WBC 7.24 6.90 (4.8-10.8) K/ul Hgb 10.8 L 11.0 L (12.0-16.0) g/dl Hct 34.9 L 35.1 L (37.0-47.0) % Plt Count 268 266 (130-400) K/uL BMP 09/10/25 09/11/25 16:46 06:01 Sodium 136 138 Potassium 3.8 3.7 Chloride 102 102 Carbon Dioxide 27 29 BUN 22 22 Creatinine 1.03 0.97 Glucose 140 H 112 H Calcium 8.9 9.0 Cardiac Enzymes 09/10/25 Range/Units 16:46 Total Creatine Kinase 42 (26-192) U/L Liver Function 09/10/25 Range/Units 16:46 Total Bilirubin 1.2 H (0.2-1.0) mg/dl AST 20 (13-39) U/L ALT 14 (7-52) U/L Alkaline Phosphatase 221 H (34-104) U/L Albumin 3.9 (3.4-5.0) gm/dl Urine 09/10/25 Range/Units 23:10 Urine Color Yellow Urine Appearance Clear (Clear) Urine pH 5.5 (4.5-7.5) Ur Specific [place] 1.044 H (1.000-1.030) Urine Protein 2+ H (Negative) Urine Glucose (UA) Negative (Negative)
[2025-09-11] MEDS: cefTRIAXone SODIUM 2,000 MG/50 ML BAG IV SCH (20:48)
[2025-09-12 03:57] LABS: A calco-baum cmplx NotReported Not Detected (NotDetected); Bact fragilis Not Reported Not Detected (NotDetected); Blood Culture Id Panel PCR Panel Negative (NotDetected); C auris Not Reported Not Detected (NotDetected); Calbicans Not Reported Not Detected (NotDetected); Candida glabrata Not Reported Not Detected (NotDetected); Candida krusei Not Reported Not Detected (NotDetected); Cneoformans/gatti Not Reported Not Detected (NotDetected); Cparapsilosis Not Reported Not Detected (NotDetected); Ctropicalis Not Reported Not Detected (NotDetected); E cloacae compx Not Reported Not Detected (NotDetected); Efaecalis Not Reported Not Detected (NotDetected); Efaecium Not Reported Not Detected (NotDetected); Enterobacterales Not Reported Not Detected (NotDetected); Escherichia coli Not Reported Not Detected (NotDetected); H influenzae Not Reported Not Detected (NotDetected); K aerogenes Not Reported Not Detected (NotDetected); Koxytoca Not Reported Not Detected (NotDetected); Kpneumoniae grp Not Reported Not Detected (NotDetected); Lmonocyt Not Reported Not Detected (NotDetected); N meningitidis Not Reported Not Detected (NotDetected); P aeruginosa Not Reported Not Detected (NotDetected); Proteus spp Not Reported Not Detected (NotDetected); Salmonella spp Not Reported Not Detected (NotDetected); Staph lugdunensis Not Reported Not Detected (NotDetected); Staph spp. Not Reported Not Detected (NotDetected); Staphaureus Not Reported Not Detected (NotDetected); Staphepi Not Reported Not Detected (NotDetected); Stenmaltophilia Not Reported Not Detected (NotDetected); Strep agal(GrpB) Not Reported Not Detected (NotDetected); Strep pneum Not Reported Not Detected (NotDetected); Strep pyog (GrpA) Not Reported Not Detected (NotDetected); Strep spp Not Reported Not Detected (NotDetected)
[2025-09-12 06:58] LABS: Hematocrit (blood only) 33.2 % (37.0-47.0); Hemoglobin 10.9 g/dl (12.0-16.0); Mean Corpuscular Hemoglobin 28.8 pg (25.0-34.0); Mean Corpuscular Volume 87.8 fL (80.0-100.0); Platelet Count 268 K/uL (130-400); RDW Standard Deviation 45.5 fL (36.4-46.3); Red Blood Count 3.78 M/uL (4.20-5.40); White Blood Count 7.63 K/ul (4.8-10.8)
[2025-09-12 07:26] LABS: Anion Gap 8.0 (3-11); Blood Urea Nitrogen 22.0 mg/dl (6-23); Calcium 8.9 mg/dl (8.6-10.3); Carbon Dioxide 29.0 mmol/L (21-32); Chloride 101.0 mmol/L (98-107); Creatinine Clr Calc Pharmacy 36.2 ml/min; Glucose 118.0 mg/dl (70-99(Fasting)); Magnesium 1.8 mg/dl (1.7-2.4); Potassium 3.7 mmol/L (3.5-5.1); Sodium 138.0 mmol/L (136-145)
--- NOTE | 2025-09-12 16:15 | Hospitalist Progress Note ---
Date of Service September 12, 2025 Assessment & Plan (1) Fall: Plan: 84-year-old female with past med history significant for hypothyroidism, history of systolic CHF, nonrheumatic aortic valve stenosis, GERD, CKD stage IIIa, history of generalized weakness, history of lipodermatosclerosis of lower extremities, kyphosis of spine, osteoporosis, macular degeneration, postherpetic polyneuropathy, essential tremor, inguinal lymphadenopathy, depression, gait disturbance, history of COVID, history of MRSA screen positive, spinal stenosis of cervical region,, comes from [facility] after fall. Patient says she is mostly wheelchair-bound. Patient says she can walk few steps. Patient says she got up and tried to on TV when her legs gave away and fell backwards and hit her head. Patient states she was able to get up. As per the ER patient was found on the floor as staff heard a sound and when checked was found on the bathroom floor. No loss of consciousness. There was bleeding in the back of the head. She was found to have some laceration in the occipital region status post dustin in the ER. Patient complains of pain at the head injury site. Vision is okay. No runny nose or sore throat. No cough. Afebrile. States appetite is good. Denies any difficulty swallowing. Denies chest pain. No shortness of breath. Denies back pain. Denies abdominal pain. Denies pain in the legs. No nausea. Normal bowel and bladder movements. Patient complains of some wounds to the lower extremities. In the ER patient was also found to be in rapid A-fib. Fall Scalp laceration S/P Dustin in ED Left parietal scalp hematoma CT head Cerebral atrophy and chronic small vessel ischemic disease. No sign of intracranial hemorrhage. Left parietal scalp hematoma CT chest no CT evidence of acute traumatic process. Small to moderate bilateral pleural effusions CT cervical spine no acute findings CT abdomen pelvis no acute findings PT OT, fall precautions Continue therapy while hospitalized A-fib RVR H/O Afib Continue metoprolol succinate 100 mg daily Monitor and replete electrolytes as needed On Eliquis for anticoagulation IV Lopressor as needed Acute on chronic diastolic CHF Valvular heart disease Moderate aortic stenosis --Last ECHO in Jun 2025: EF 65 to 70%. No regional wall motion abnormality. Left atrium severely dilated. Right atrium moderately dilated. Moderate valvular aortic stenosis. Mild mitral regurgitation. Mild mitral stenosis. Moderate tricuspid regurgitation. Pulmonary artery systolic pressure estimated to be 70 mmHg. -- Hold p.o. Lasix Monitor volume status Continue metoprolol succinate Volume status slowly improving Will obtain chest x-ray tomorrow and reassess need for IV diuretics Consider to transition to p.o. diuretics in 1 to 2 days Bilateral lower extremity cellulitis Chronic venous stasis Recently was treated for cellulitis as well Lower extremity superficial wounds Continue Empiric Rocephin and doxycycline Wound care consult Bacteremia 12/01: Growing strep salivarius 12/01: Growing gram-positive bacilli Continue empiric antibiotics as above Obtain echo Consulted ID for further evaluation Continue IV Rocephin for now Hypothyroidism Continue levothyroxine GERD Continue PPI Depression Paroxetine and Lamictal Anxiety On hydroxyzine Ambulatory dysfunction Wheelchair-bound as per patient Continue PT OT, fall precautions CKD stage III A Monitor renal function Avoid nephrotoxic agents as able Chronic anemia Hemoglobin at baseline Monitor DVT prophylaxis Eliquis CODE STATUS Full code Disposition To be determined Admission and Anticipated Discharge Date Admission Date: September 10, 2025 Subjective Patient is seen and examined at bedside Was anxious having physical therapy during my encounter this morning States that her leg edema, erythema improved Still has some scalp discomfort at laceration site Denies any chest pain, nausea, vomiting, abdominal pain, dyspnea today No other complaints Review of Systems Review of Systems: All systems reviewed & are unremarkable except as noted in Subjective Physical Exam Physical Exam: Physical Exam: Vitals signs as noted above General Appearance:Moderately built and nourished, no apparent distress, elderly Head: normocephalic, +traumatic ,+ scalp laceration/dustin Eyes: normal inspection, EOMI Neck: supple, Trachea midline Respiratory/Chest: Normal breath sounds, minimal basal crackles, No accessory muscle use Cardiovascular: Irregularly irregular, +murmur Abdomen/GI:Soft, Non tender, Bowel sounds present Extremities/Musculoskeletal:normal inspection, B/L LE erythema, warm, mild edema Neurologic/Psych:AAOX3, grossly no focal neurological deficits Skin: normal color, warm Results & Data Results & Data Vital Signs (Past 12 Hours) Vital Signs Temp Pulse Pulse Resp BP Pulse Ox O2 Del Method 09/12/25 16:01 36.7 C 85 18 93/50 L 92 Room Air 09/12/25 14:15 100 H 09/12/25 11:34 36.7 C 91 H 19 106/51 L 93 Room Air 09/12/25 09:00 Room Air 09/12/25 07:30 104 H 09/12/25 07:15 36.7 C 84 17 121/70 92 Room Air 09/12/25 07:10 36.9 C 88 18 113/71 95 Room Air Laboratory Results Short CBC 09/12/25 Range/Units 06:26 WBC 7.63 (4.8-10.8) K/ul Hgb 10.9 L (12.0-16.0) g/dl Hct 33.2 L (37.0-47.0) % Plt Count 268 (130-400) K/uL BMP 09/12/25 06:26 Sodium 138 Potassium 3.7 Chloride 101 Carbon Dioxide 29 BUN 22 Creatinine 0.93 Glucose 118 H Calcium 8.9
--- NOTE | 2025-09-13 08:14 | XRay Report ---
EXAM: XR chest 1V portable CLINICAL HISTORY: CHF TECHNIQUE: An X-ray image of the chest is obtained in AP projection. COMPARISON: 09/10/2025 16:11:00 [employer] FINDINGS: Pulmonary Parenchyma: Progression of the bilateral perihilar opacities and hilar vascular congestion as well as diffuse pulmonary interstitial thickening. Obliterated both costophrenic angles likely by mild pleural effusion/thickening more on the right side and more appreciated in today's study. Heart and Mediastinum: Still seen cardiomegaly. No mediastinal widening or masses. No hilar or mediastinal lymphadenopathy. Bony Thorax: Bony thorax appears intact without fractures or deformities. Soft Tissues: Soft tissues overlying the chest wall are unremarkable. Internal fixation of the left humerus, bony osteopenia, bilateral acromioclavicular osteoarthritis. IMPRESSION: Progression of the bilateral perihilar opacities and hilar vascular congestion as well as diffuse pulmonary interstitial thickening. The possibility of pulmonary edema is suggested and inflammatory changes cannot be entirely excluded. Obliterated both costophrenic angles likely by mild pleural effusion/thickening more on the right side and more appreciated in today's study. Still seen cardiomegaly. Electronically signed by Francis Aguiar 09-13-2025 08:13 AM
[2025-09-13 09:33] LABS: Anion Gap 8.0 (3-11); Blood Urea Nitrogen 18.0 mg/dl (6-23); Calcium 9.3 mg/dl (8.6-10.3); Carbon Dioxide 28.0 mmol/L (21-32); Chloride 101.0 mmol/L (98-107); Creatinine Clr Calc Pharmacy 44.4 ml/min; Glucose 140.0 mg/dl (70-99(Fasting)); Potassium 3.7 mmol/L (3.5-5.1); Sodium 137.0 mmol/L (136-145)
--- NOTE | 2025-09-13 13:36 | Hospitalist Progress Note ---
Date of Service September 13, 2025 Assessment & Plan (1) Fall: Plan: 84-year-old female with past med history significant for hypothyroidism, history of systolic CHF, nonrheumatic aortic valve stenosis, GERD, CKD stage IIIa, history of generalized weakness, history of lipodermatosclerosis of lower extremities, kyphosis of spine, osteoporosis, macular degeneration, postherpetic polyneuropathy, essential tremor, inguinal lymphadenopathy, depression, gait disturbance, history of COVID, history of MRSA screen positive, spinal stenosis of cervical region,, comes from [facility] after fall. Patient says she is mostly wheelchair-bound. Patient says she can walk few steps. Patient says she got up and tried to on TV when her legs gave away and fell backwards and hit her head. Patient states she was able to get up. As per the ER patient was found on the floor as staff heard a sound and when checked was found on the bathroom floor. No loss of consciousness. There was bleeding in the back of the head. She was found to have some laceration in the occipital region status post dustin in the ER. Patient complains of pain at the head injury site. Vision is okay. No runny nose or sore throat. No cough. Afebrile. States appetite is good. Denies any difficulty swallowing. Denies chest pain. No shortness of breath. Denies back pain. Denies abdominal pain. Denies pain in the legs. No nausea. Normal bowel and bladder movements. Patient complains of some wounds to the lower extremities. In the ER patient was also found to be in rapid A-fib. Fall Scalp laceration S/P Dustin in ED Left parietal scalp hematoma CT head Cerebral atrophy and chronic small vessel ischemic disease. No sign of intracranial hemorrhage. Left parietal scalp hematoma CT chest no CT evidence of acute traumatic process. Small to moderate bilateral pleural effusions CT cervical spine no acute findings CT abdomen pelvis no acute findings PT OT, fall precautions Continue therapy while hospitalized A-fib RVR H/O Afib Continue metoprolol succinate 100 mg daily Monitor and replete electrolytes as needed On Eliquis for anticoagulation IV Lopressor as needed Currently rate controlled Acute on chronic diastolic CHF Valvular heart disease Moderate aortic stenosis --Last ECHO in Jun 2025: EF 65 to 70%. No regional wall motion abnormality. Left atrium severely dilated. Right atrium moderately dilated. Moderate valvular aortic stenosis. Mild mitral regurgitation. Mild mitral stenosis. Moderate tricuspid regurgitation. Pulmonary artery systolic pressure estimated to be 70 mmHg. -- Hold p.o. Lasix Monitor volume status Continue metoprolol succinate Volume status slowly improving Continue IV Lasix for now Bilateral lower extremity cellulitis Chronic venous stasis Recently was treated for cellulitis as well Lower extremity superficial wounds Continue Empiric Rocephin and doxycycline Wound care consult Infectious disease consulted Bacteremia 12/01: Growing strep salivarius 12/01: Growing gram-positive bacilli --Repeat blood cultures pending Continue empiric antibiotics as above --ECHO: EF 65 to 70%. Aortic valve is trileaflet. Aortic valve leaflets are heavily calcified and restricted in mobility. Moderate to severe valvular aortic stenosis. Severe mitral calcification. Mitral valve leaflets are thickened and restricted in mobility. Distinct vegetation not visualized. Mild mitral regurgitation, mild mitral stenosis, moderate tricuspid regurgitation. Consulted ID for further evaluation Continue IV Rocephin for now Follow-up cultures Hypothyroidism Continue levothyroxine GERD Continue PPI Depression Paroxetine and Lamictal Anxiety On hydroxyzine Ambulatory dysfunction Wheelchair-bound as per patient Continue PT OT, fall precautions CKD stage III A Monitor renal function Avoid nephrotoxic agents as able Chronic anemia Hemoglobin at baseline Monitor DVT prophylaxis Eliquis CODE STATUS Full code Disposition To be determined Admission and Anticipated Discharge Date Admission Date: September 10, 2025 Subjective Patient is seen and examined at bedside Sitting in chair during my encounter No new complaints today Leg edema, erythema, pain continues to improve Denies any chest pain, nausea, vomiting, abdominal pain, dyspnea today Infectious disease input pending Review of Systems Review of Systems: All systems reviewed & are unremarkable except as noted in Subjective Physical Exam Physical Exam: Physical Exam: Vitals signs as noted above General Appearance:Moderately built and nourished, no apparent distress, elderly Head: normocephalic, +traumatic ,+ scalp laceration/dustin Eyes: normal inspection, EOMI Neck: supple, Trachea midline Respiratory/Chest: Normal breath sounds, minimal basal crackles, No accessory muscle use Cardiovascular: Irregularly irregular, +murmur Abdomen/GI:Soft, Non tender, Bowel sounds present Extremities/Musculoskeletal:normal inspection, B/L LE erythema, warm, mild edema Neurologic/Psych:AAOX3, grossly no focal neurological deficits Skin: normal color, warm Results & Data Results & Data Vital Signs (Past 12 Hours) Vital Signs Temp Pulse Resp BP Pulse Ox O2 Del Method 09/13/25 11:20 37.1 C 88 19 111/66 96 Room Air 09/13/25 08:00 Room Air 09/13/25 07:14 36.5 C 90 18 116/77 91 Room Air 09/13/25 03:30 36.7 C 94 H 14 130/85 95 Room Air Laboratory Results [facility] 09/13/25 08:50 Sodium 137 Potassium 3.7 Chloride 101 Carbon Dioxide 28 BUN 18 Creatinine 0.76 Glucose 140 H Calcium 9.3
--- NOTE | 2025-09-13 16:00 | Infectious Disease Consult ---
Date of Service September 13, 2025 Telehealth Information I performed this visit using a real-time telehealth connection between my location and the patients location ([facility]). After connecting through interactive tele-video, patient was identified by name and date of and/or wristband check.Patient (or authorized healthcare civil rights representative) was informed that this was a telemedicine visit and it was being conducted confidentially over secure lines. My office door was closed and no one else was present in the room with me.Patient (or authorized healthcare civil rights representative) provided consent to proceed with the visit, expressed an understanding of privacy and security of the telemedicine visit, and gave permission to have a hospital civil rights representative in the room in order to assist with the visit and to conduct portions of the visit, as needed. I informed the patient (or authorized healthcare civil rights representative) that I reviewed their record and presented the opportunity for them to ask any questions regarding the visit today. The patient agreed to participate. Assessment & Plan (1) Fall: Plan: Examination of the patient's LEs actually appears to be improved since I last saw her in June 2025. My suspicion is that the BCX isolates may actually represent contaminates as opposed to true pathogens. However, both the the organisms are considered to be mouth yovanny. Therefore, before stopping ABX, I recommend to evaluate the patient for any active dental infection and also follow up the outstanding BCX to ensure that they do not become positive. All orders are deferred to the primary/requesting service. All dosing is deferred to [facility] pharmacy (I do not have an ID pharmacist available at this time). These recommendations are not final. For subsequent recommendations, use the on- call schedule to find out which ID provider is covering your facility. History of Present Illness History of Present Illness The patient was admitted for a fall. She sustained a laceration which was stapled. During the admission, there was concern for LE SSTI. Blood cultures gre w Rothia and Strep salivarius. The patient reports feeling better and offers no specific complaints. Allergies Allergy/AdvReac Type Severity Reaction Status Date / Time No Known Allergies Allergy Verified 09/10/25 18:59 Home Medications Medication Instructions Recorded Confirmed Type hydroxyzine HCl 10 mg tablet 10 - 20 mg PO DIRECTED PRN 01/13/24 09/10/25 History Anxiety/Mood loperamide 2 mg capsule (Imodium 2 mg PO DIRECTED 09/30/24 09/10/25 History A-D) apixaban 5 mg tablet (Eliquis) 5 mg PO BID #60 tabs 07/26/25 09/10/25 Rx calcium 500 mg (as 1 tab PO DAILY #30 tabs 07/26/25 09/10/25 Rx carbonate)-vitamin D3 5 mcg (200 unit) tablet (Oyster Shell Calcium-Vitamin D3) furosemide 20 mg tablet (Lasix) 20 mg PO Q OTHER DAY #30 tabs 07/26/25 09/10/25 Rx hydroxyzine HCl 10 mg tablet 10 mg PO BID #60 tabs 07/26/25 09/10/25 Rx hydroxyzine HCl 10 mg tablet 20 mg (2 x 10 mg) PO HS #30 tabs 07/26/25 09/10/25 Rx lamotrigine 200 mg tablet 200 mg PO HS 30 days #30 tabs 07/26/25 09/10/25 Rx melatonin 3 mg disintegrating 3 mg PO HS PRN Insomnia #30 tabs 07/26/25 09/10/25 Rx tablet metoprolol succinate 100 mg 100 mg PO QAM #30 tabs 07/26/25 09/10/25 Rx tablet,extended release 24 hr multivitamin (Daily-Priscila tablet) 1 tab PO DAILY #30 tabs 07/26/25 09/10/25 Rx omeprazole 40 mg capsule,delayed 40 mg PO DAILYBB #30 caps 07/26/25 09/10/25 Rx release oxybutynin chloride 5 mg tablet 2.5 mg (1/2 x 5 mg) PO BID #30 tabs 07/26/25 09/10/25 Rx paroxetine HCl 30 mg tablet 30 mg PO HS #30 tabs 07/26/25 09/10/25 Rx tramadol 50 mg tablet 50 mg PO BID PRN pain #10 tabs 07/26/25 09/10/25 Rx vit C 250 mg-vit E 90 mg-zinc 40 1 tab PO BID #30 caps 07/26/25 09/10/25 Rx mg-copper 1 [id number] capsule (PreserVision AREDS-2) levothyroxine 75 mcg tablet 75 mcg PO DAILYBB 09/10/25 09/10/25 History naproxen sodium 220 mg tablet 220 mg PO BID PRN Pain 09/10/25 09/10/25 History Patient History Medical History HTN (hypertension) Osteoarthritis of right knee Stasis dermatitis Elevated liver enzymes Degenerative arthritis Anxiety Surgical History History of hip surgery 02/2024 - right femur fracture s/p intermedullary anai S/P cataract surgery Family History Father , age 76 of metastatic prostate cancer Cancer Prostate cancer Heart disease Mother , age 93 Rheumatoid arthritis Social History Smoking Status: Never smoker Second Hand Exposure: No; Do You Dip or Chew Tobacco: No; Tobacco Cessation Education Requested by Patient: No Hx Alcohol Use: No Hx Substance Use: No Preferred Language: Bulgarian Communication Ability: Effective Optical Coating Technician Required: No Beliefs That Will Affect Care: None marital status: Single Current Living Situation: Personal Care Facility Current Living Situation Comment: [facility] current occupational status: retired 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57 How many Children do You have: 0 Other Information That Helps Us Care for You: No Feels Safe at Home: Yes Safety Concerns: Feels Safe At This Time Assistive Devices: Walker and Wheelchair Review of Systems As reviewed in HPI; a complete ROS was otherwise negative Physical Exam Vitals: see EMR Exam limited due to constraints of telemedicine Gen/Constitutional: appears at stated age, NAD, nontoxic Head: AT, NC Eyes: sclera anicteric, no conjunctival injection ENT: MMM, trachea midline Card: appears to be well-perfused Resp: not tachypneic, nml effort, symmetric chest rise, no accessory muscle use Derm: no visible diaphoresis, no visible rash, no visible jaundice Results & Data Vital Signs (Past 12 Hours) Vital Signs Temp Pulse Pulse Resp BP Pulse Ox O2 Del Method 09/13/25 15:41 36.5 C 87 19 112/66 93 Room Air 09/13/25 13:21 82 09/13/25 11:20 37.1 C 88 19 111/66 96 Room Air 09/13/25 08:00 Room Air 09/13/25 07:14 36.5 C 90 18 116/77 91 Room Air Laboratory Results SEE EMR Diagnostic Findings SEE EMR
[2025-09-13] MEDS: MELATONIN 3 MG TAB PO PRN (21:25)
[2025-09-14 06:29] LABS: Hematocrit (blood only) 32.0 % (37.0-47.0); Hemoglobin 10.4 g/dl (12.0-16.0); Mean Corpuscular Hemoglobin 28.6 pg (25.0-34.0); Mean Corpuscular Volume 87.9 fL (80.0-100.0); Platelet Count 289 K/uL (130-400); RDW Standard Deviation 45.2 fL (36.4-46.3); Red Blood Count 3.64 M/uL (4.20-5.40); White Blood Count 8.18 K/ul (4.8-10.8)
[2025-09-14 06:56] LABS: Anion Gap 6.0 (3-11); Blood Urea Nitrogen 20.0 mg/dl (6-23); Calcium 8.8 mg/dl (8.6-10.3); Carbon Dioxide 31.0 mmol/L (21-32); Chloride 101.0 mmol/L (98-107); Creatinine Clr Calc Pharmacy 41.9 ml/min; Glucose 117.0 mg/dl (70-99(Fasting)); Magnesium 1.7 mg/dl (1.7-2.4); Potassium 3.8 mmol/L (3.5-5.1); Sodium 138.0 mmol/L (136-145)
[2025-09-14] MEDS: ADVANCED PROBIOTIC 625 MG CAPSULE PO SCH (12:54)
--- NOTE | 2025-09-14 16:33 | Hospitalist Progress Note ---
Date of Service September 14, 2025 Assessment & Plan (1) Fall: Plan: 84-year-old female with past med history significant for hypothyroidism, history of systolic CHF, nonrheumatic aortic valve stenosis, GERD, CKD stage IIIa, history of generalized weakness, history of lipodermatosclerosis of lower extremities, kyphosis of spine, osteoporosis, macular degeneration, postherpetic polyneuropathy, essential tremor, inguinal lymphadenopathy, depression, gait disturbance, history of COVID, history of MRSA screen positive, spinal stenosis of cervical region,, comes from [facility] after fall. Patient says she is mostly wheelchair-bound. Patient says she can walk few steps. Patient says she got up and tried to on TV when her legs gave away and fell backwards and hit her head. Patient states she was able to get up. As per the ER patient was found on the floor as staff heard a sound and when checked was found on the bathroom floor. No loss of consciousness. There was bleeding in the back of the head. She was found to have some laceration in the occipital region status post dustin in the ER. Patient complains of pain at the head injury site. Vision is okay. No runny nose or sore throat. No cough. Afebrile. States appetite is good. Denies any difficulty swallowing. Denies chest pain. No shortness of breath. Denies back pain. Denies abdominal pain. Denies pain in the legs. No nausea. Normal bowel and bladder movements. Patient complains of some wounds to the lower extremities. In the ER patient was also found to be in rapid A-fib. Fall Scalp laceration S/P Dustin in ED Left parietal scalp hematoma CT head Cerebral atrophy and chronic small vessel ischemic disease. No sign of intracranial hemorrhage. Left parietal scalp hematoma CT chest no CT evidence of acute traumatic process. Small to moderate bilateral pleural effusions CT cervical spine no acute findings CT abdomen pelvis no acute findings PT OT, fall precautions Continue therapy while hospitalized Case management to help with discharge planning A-fib RVR H/O Afib Continue metoprolol succinate 100 mg daily Monitor and replete electrolytes as needed On Eliquis for anticoagulation IV Lopressor as needed Currently rate controlled Acute on chronic diastolic CHF Valvular heart disease Moderate aortic stenosis --Last ECHO in Jun 2025: EF 65 to 70%. No regional wall motion abnormality. Left atrium severely dilated. Right atrium moderately dilated. Moderate valvular aortic stenosis. Mild mitral regurgitation. Mild mitral stenosis. Moderate tricuspid regurgitation. Pulmonary artery systolic pressure estimated to be 70 mmHg. Monitor volume status Continue metoprolol succinate Continue IV Lasix>> transition to oral Lasix tomorrow Bilateral lower extremity cellulitis Chronic venous stasis Recently was treated for cellulitis as well Lower extremity superficial wounds Continue received Rocephin and doxycycline Wound care consult Appreciate ID input IV Rocephin transition to Augmentin Abnormal blood cultures ? contamination 12/01: Grew Rothia dentocariosa 12/01: Grew Strep Salivarius/vestibular gp --Repeat blood cultures: No growth to date Continue empiric antibiotics as above --ECHO: EF 65 to 70%. Aortic valve is trileaflet. Aortic valve leaflets are heavily calcified and restricted in mobility. Moderate to severe valvular aortic stenosis. Severe mitral calcification. Mitral valve leaflets are thickened and restricted in mobility. Distinct vegetation not visualized. Mild mitral regurgitation, mild mitral stenosis, moderate tricuspid regurgitation. --Appreciate ID input Obtain facial CT to rule out any dental infection IV Rocephin transition to Augmentin Hypothyroidism Continue levothyroxine GERD Continue PPI Depression Paroxetine and Lamictal Anxiety On hydroxyzine Ambulatory dysfunction Wheelchair-bound as per patient Continue PT OT, fall precautions CKD stage III A Monitor renal function Avoid nephrotoxic agents as able Chronic anemia Hemoglobin at baseline Monitor DVT prophylaxis Eliquis CODE STATUS Full code Disposition Case management to help with discharge planning Admission and Anticipated Discharge Date Admission Date: September 10, 2025 Subjective Patient is seen and examined at bedside Sleeping comfortably during my encounter this morning Offers no new complaints Leg edema continues to improve No distress on exam Denies any chest pain, nausea, vomiting, abdominal pain, dyspnea Review of Systems Review of Systems: All systems reviewed & are unremarkable except as noted in Subjective Physical Exam Physical Exam: Physical Exam: Vitals signs as noted above General Appearance:Moderately built and nourished, no apparent distress, elderly Head: normocephalic, +traumatic ,+ scalp laceration/dustin Eyes: normal inspection, EOMI Neck: supple, Trachea midline Respiratory/Chest: Normal breath sounds, CTA, No accessory muscle use Cardiovascular: Irregularly irregular, +murmur Abdomen/GI:Soft, Non tender, Bowel sounds present Extremities/Musculoskeletal:normal inspection, B/L LE erythema, warm, mild edema Neurologic/Psych:AAOX3, grossly no focal neurological deficits Skin: normal color, warm Results & Data Results & Data Vital Signs (Past 12 Hours) Vital Signs Temp Pulse Pulse Resp BP Pulse Ox O2 Del Method 09/14/25 15:03 36.7 C 77 19 115/72 91 Room Air 09/14/25 13:08 81 09/14/25 11:09 36.2 C L 79 19 111/70 91 Room Air 09/14/25 08:03 36.4 C L 78 22 98/61 L 96 Room Air 09/14/25 08:00 Room Air Laboratory Results Short CBC 09/14/25 Range/Units 05:41 WBC 8.18 (4.8-10.8) K/ul Hgb 10.4 L (12.0-16.0) g/dl Hct 32.0 L (37.0-47.0) % Plt Count 289 (130-400) K/uL BMP 09/14/25 05:41 Sodium 138 Potassium 3.8 Chloride 101 Carbon Dioxide 31 BUN 20 Creatinine 0.87 Glucose 117 H Calcium 8.8
--- NOTE | 2025-09-14 17:16 | CT Scan Report ---
Exam: CT of the face without contrast Exam reason: Rule out dental infection. Comparison: No prior examinations available for comparison. Technique: Multiple transaxial images of the face were obtained without contrast. The images were also reconstructed in coronal and sagittal planes. Findings: There is no evidence of acute fracture or dislocation. The mandibular condyles are well-seated within the temporal mandibular fossa bilaterally. The paranasal sinuses are clear. The orbits and orbital contents are within normal limits. The bilateral mastoid air cells, inner ear ossicles and external auditory canals are within normal limits. There is lucency seen surrounding the roots of 2 of the teeth in the left lower jaw as well as surrounding the roots of the left lower jaw incisor. There is no significant stranding within the overlying subcutaneous tissues. Multiple dental caries are present throughout the mouth. Impression: 1. Lucencies around the multiple teeth in the left lower jaw and right lower incisor consistent with periapical abscesses. 2. Multiple dental caries. Recommend dental consult. Electronically signed by Martin Landa 09-14-2025 5:16 PM
[2025-09-14] MEDS: AMOXICILLIN/CLAVULANATE 875 MG TAB PO SCH (20:04)
[2025-09-15 07:28] LABS: Anion Gap 5.0 (3-11); Blood Urea Nitrogen 25.0 mg/dl (6-23); Calcium 9.1 mg/dl (8.6-10.3); Carbon Dioxide 32.0 mmol/L (21-32); Chloride 103.0 mmol/L (98-107); Creatinine Clr Calc Pharmacy 39.2 ml/min; Glucose 106.0 mg/dl (70-99(Fasting)); Potassium 4.4 mmol/L (3.5-5.1); Sodium 140.0 mmol/L (136-145)
[2025-09-15] MEDS: FUROSEMIDE 20 MG TAB PO SCH (09:18)
--- NOTE | 2025-09-15 12:22 | Hospitalist Progress Note ---
Date of Service September 15, 2025 Assessment & Plan (1) Fall: Plan: 84-year-old female with past med history significant for hypothyroidism, history of systolic CHF, nonrheumatic aortic valve stenosis, GERD, CKD stage IIIa, history of generalized weakness, history of lipodermatosclerosis of lower extremities, kyphosis of spine, osteoporosis, macular degeneration, postherpetic polyneuropathy, essential tremor, inguinal lymphadenopathy, depression, gait disturbance, history of COVID, history of MRSA screen positive, spinal stenosis of cervical region,, comes from [facility] after fall. Patient says she is mostly wheelchair-bound. Patient says she can walk few steps. Patient says she got up and tried to on TV when her legs gave away and fell backwards and hit her head. Patient states she was able to get up. As per the ER patient was found on the floor as staff heard a sound and when checked was found on the bathroom floor. No loss of consciousness. There was bleeding in the back of the head. She was found to have some laceration in the occipital region status post dustin in the ER. Patient complains of pain at the head injury site. Vision is okay. No runny nose or sore throat. No cough. Afebrile. States appetite is good. Denies any difficulty swallowing. Denies chest pain. No shortness of breath. Denies back pain. Denies abdominal pain. Denies pain in the legs. No nausea. Normal bowel and bladder movements. Patient complains of some wounds to the lower extremities. In the ER patient was also found to be in rapid A-fib. Fall Scalp laceration S/P Dustin in ED Left parietal scalp hematoma CT head Cerebral atrophy and chronic small vessel ischemic disease. No sign of intracranial hemorrhage. Left parietal scalp hematoma CT chest no CT evidence of acute traumatic process. Small to moderate bilateral pleural effusions CT cervical spine no acute findings CT abdomen pelvis no acute findings PT OT, fall precautions Continue therapy while hospitalized Case management to help with discharge planning A-fib RVR H/O Afib Continue metoprolol succinate 100 mg daily Monitor and replete electrolytes as needed IV Lopressor as needed Eliquis held for possible dental procedure Resume anticoagulation as able Acute on chronic diastolic CHF Valvular heart disease Moderate aortic stenosis --Last ECHO in Jun 2025: EF 65 to 70%. No regional wall motion abnormality. Left atrium severely dilated. Right atrium moderately dilated. Moderate valvular aortic stenosis. Mild mitral regurgitation. Mild mitral stenosis. Moderate tricuspid regurgitation. Pulmonary artery systolic pressure estimated to be 70 mmHg. Continue metoprolol succinate Continue IV Lasix>> transition to oral Lasix Monitor volume status closely Bilateral lower extremity cellulitis Chronic venous stasis Recently was treated for cellulitis as well Lower extremity superficial wounds Received IV Rocephin Continue doxycycline to complete the course Wound care consult Appreciate ID input Periapical abscess Likely source of bacteremia --CT Face:1. Lucencies around the multiple teeth in the left lower jaw and right lower incisor consistent with periapical abscesses. Multiple dental caries. Recommend dental consult. 12/01: Grew Rothia dentocariosa 12/01: Grew Strep Salivarius/vestibular gp --Repeat blood cultures: No growth to date Continue empiric antibiotics as above --ECHO: EF 65 to 70%. Aortic valve is trileaflet. Aortic valve leaflets are heavily calcified and restricted in mobility. Moderate to severe valvular aortic stenosis. Severe mitral calcification. Mitral valve leaflets are thickened and restricted in mobility. Distinct vegetation not visualized. Mild mitral regurgitation, mild mitral stenosis, moderate tricuspid regurgitation. --Appreciate ID input Consulted oromaxillary surgeon Continue Augmentin for now Eliquis on hold for possible procedure Hypothyroidism Continue levothyroxine GERD Continue PPI Depression Paroxetine and Lamictal Anxiety On hydroxyzine Ambulatory dysfunction Wheelchair-bound as per patient Continue PT OT, fall precautions CKD stage III A Monitor renal function Avoid nephrotoxic agents as able Chronic anemia Hemoglobin at baseline Monitor DVT prophylaxis SQ heparin while Eliquis on hold CODE STATUS Full code Disposition Case management to help with discharge planning Admission and Anticipated Discharge Date Admission Date: September 10, 2025 Subjective Patient is seen and examined at bedside More alert, awake today Offers no new complaints Afebrile Leg edema, erythema continues to improve denies any chest pain, nausea, vomiting, abdominal pain, dyspnea Review of Systems Review of Systems: All systems reviewed & are unremarkable except as noted in Subjective Physical Exam Physical Exam: Physical Exam: Vitals signs as noted above General Appearance:Moderately built and nourished, no apparent distress, elderly Head: normocephalic, +traumatic ,+ scalp laceration/dustin Eyes: normal inspection, EOMI Neck: supple, Trachea midline Respiratory/Chest: Normal breath sounds, basal crackles, No accessory muscle use Cardiovascular: Irregularly irregular, +murmur Abdomen/GI:Soft, Non tender, Bowel sounds present Extremities/Musculoskeletal:normal inspection, B/L LE erythema, edema improved Neurologic/Psych:AAOX3, grossly no focal neurological deficits Skin: normal color, warm Results & Data Results & Data Vital Signs (Past 12 Hours) Vital Signs Temp Pulse Pulse Resp BP Pulse Ox O2 Del Method 09/15/25 10:55 36.2 C L 86 23 107/71 91 Room Air 09/15/25 08:45 Room Air 09/15/25 07:45 36.3 C L 85 24 108/69 94 Room Air 09/15/25 05:14 83 09/15/25 03:03 36.2 C L 82 14 111/70 94 Room Air Laboratory Results [facility] 09/15/25 06:38 Sodium 140 Potassium 4.4 Chloride 103 Carbon Dioxide 32 BUN 25 H Creatinine 0.86 Glucose 106 H Calcium 9.1
[2025-09-15] MEDS: HEPARIN SOD 5,000 UNIT/0.5 ML VIAL SQ SCH (20:28)
--- NOTE | 2025-09-16 05:10 | Electrocardiogram Report ---
Test Reason : Blood Pressure : */* mmHG Vent. Rate : 92 BPM Atrial Rate : * BPM P-R Int : * ms QRS Dur : 80 ms QT Int : 388 ms P-R-T Axes : * 57 -2 degrees QTcB Int : 479 ms Atrial fibrillation Abnormal ECG When compared with ECG of 11-Sep-2025 05:15, (unconfirmed) No significant change Confirmed by Pernell Couch ([id number]) on 09/16/2025 5:10:11 AM Referred By: [facility] Confirmed By: Pernell Couch
--- NOTE | 2025-09-16 06:09 | Electrocardiogram Report ---
Test Reason : Blood Pressure : */* mmHG Vent. Rate : 94 BPM Atrial Rate : * BPM P-R Int : * ms QRS Dur : 80 ms QT Int : 410 ms P-R-T Axes : * 76 2 degrees QTcB Int : 512 ms Atrial fibrillation Abnormal ECG When compared with ECG of 10-Sep-2025 16:56, (unconfirmed) Atrial fibrillation has replaced Atrial flutter Confirmed by Pernell Couch ([id number]) on 09/16/2025 6:09:13 AM Referred By: [facility] Confirmed By: Pernell Couch
--- NOTE | 2025-09-16 06:27 | Electrocardiogram Report ---
Test Reason : Blood Pressure : */* mmHG Vent. Rate : 96 BPM Atrial Rate : 294 BPM P-R Int : * ms QRS Dur : 80 ms QT Int : 374 ms P-R-T Axes : * 65 4 degrees QTcB Int : 472 ms Atrial fibrillation Abnormal ECG When compared with ECG of 19-Jul-2025 05:57, No significant change Confirmed by Pernell Couch ([id number]) on 09/16/2025 6:26:53 AM Referred By: [facility] Confirmed By: Pernell Couch
[2025-09-16 07:06] LABS: Anion Gap 6.0 (3-11); Blood Urea Nitrogen 24.0 mg/dl (6-23); Calcium 9.4 mg/dl (8.6-10.3); Carbon Dioxide 32.0 mmol/L (21-32); Chloride 101.0 mmol/L (98-107); Creatinine Clr Calc Pharmacy 34.4 ml/min; Glucose 105.0 mg/dl (70-99(Fasting)); Potassium 4.3 mmol/L (3.5-5.1); Sodium 139.0 mmol/L (136-145)
--- NOTE | 2025-09-16 14:38 | Hospitalist Progress Note ---
Date of Service September 16, 2025 Assessment & Plan (1) Fall: Plan: 84-year-old female with past med history significant for hypothyroidism, history of systolic CHF, nonrheumatic aortic valve stenosis, GERD, CKD stage IIIa, history of generalized weakness, history of lipodermatosclerosis of lower extremities, kyphosis of spine, osteoporosis, macular degeneration, postherpetic polyneuropathy, essential tremor, inguinal lymphadenopathy, depression, gait disturbance, history of COVID, history of MRSA screen positive, spinal stenosis of cervical region,, comes from [facility] after fall. Patient says she is mostly wheelchair-bound. Patient says she can walk few steps. Patient says she got up and tried to on TV when her legs gave away and fell backwards and hit her head. Patient states she was able to get up. As per the ER patient was found on the floor as staff heard a sound and when checked was found on the bathroom floor. No loss of consciousness. There was bleeding in the back of the head. She was found to have some laceration in the occipital region status post dustin in the ER. Patient complains of pain at the head injury site. Vision is okay. No runny nose or sore throat. No cough. Afebrile. States appetite is good. Denies any difficulty swallowing. Denies chest pain. No shortness of breath. Denies back pain. Denies abdominal pain. Denies pain in the legs. No nausea. Normal bowel and bladder movements. Patient complains of some wounds to the lower extremities. In the ER patient was also found to be in rapid A-fib. Fall Scalp laceration S/P Dustin in ED Left parietal scalp hematoma CT head Cerebral atrophy and chronic small vessel ischemic disease. No sign of intracranial hemorrhage. Left parietal scalp hematoma CT chest no CT evidence of acute traumatic process. Small to moderate bilateral pleural effusions CT cervical spine no acute findings CT abdomen pelvis no acute findings PT OT, fall precautions Plan to discharge to SNF as able A-fib RVR H/O Afib Continue metoprolol succinate 100 mg daily Monitor and replete electrolytes as needed IV Lopressor as needed Eliquis held for possible dental procedure Resume anticoagulation as able Currently rate controlled Acute on chronic diastolic CHF Valvular heart disease Moderate aortic stenosis --Last ECHO in Jun 2025: EF 65 to 70%. No regional wall motion abnormality. Left atrium severely dilated. Right atrium moderately dilated. Moderate valvular aortic stenosis. Mild mitral regurgitation. Mild mitral stenosis. Moderate tricuspid regurgitation. Pulmonary artery systolic pressure estimated to be 70 mmHg. Continue metoprolol succinate Continue IV Lasix>> transition to oral Lasix Volume status much improved Bilateral lower extremity cellulitis Chronic venous stasis Recently was treated for cellulitis as well Lower extremity superficial wounds Received IV Rocephin Continue doxycycline to complete the course Wound care consult Appreciate ID input Periapical abscess Likely source of bacteremia --CT Face:1. Lucencies around the multiple teeth in the left lower jaw and right lower incisor consistent with periapical abscesses. Multiple dental caries. Recommend dental consult. 12/01: Grew Rothia dentocariosa 12/01: Grew Strep Salivarius/vestibular gp --Repeat blood cultures: No growth to date Continue empiric antibiotics as above --ECHO: EF 65 to 70%. Aortic valve is trileaflet. Aortic valve leaflets are heavily calcified and restricted in mobility. Moderate to severe valvular aortic stenosis. Severe mitral calcification. Mitral valve leaflets are thickened and restricted in mobility. Distinct vegetation not visualized. Mild mitral regurgitation, mild mitral stenosis, moderate tricuspid regurgitation. --Appreciate ID input Consulted oromaxillary surgeon--awaiting input Continue Augmentin for now Eliquis on hold for possible procedure Repeat blood cultures sterile so far Hypothyroidism Continue levothyroxine GERD Continue PPI Depression Paroxetine and Lamictal Anxiety On hydroxyzine Ambulatory dysfunction Wheelchair-bound as per patient Continue PT OT, fall precautions CKD stage III A Monitor renal function Avoid nephrotoxic agents as able Chronic anemia Hemoglobin at baseline Monitor DVT prophylaxis SQ heparin while Eliquis on hold CODE STATUS Full code Disposition Case management to help with discharge planning Admission and Anticipated Discharge Date Admission Date: September 10, 2025 Subjective Patient is seen and examined at bedside No new complaints today Oromaxillary surgery evaluation pending Repeat blood cultures remain negative Denies any chest pain, nausea, vomiting, abdominal pain, dyspnea Review of Systems Review of Systems: All systems reviewed & are unremarkable except as noted in Subjective Physical Exam Physical Exam: Physical Exam: Vitals signs as noted above General Appearance:Moderately built and nourished, no apparent distress, elderly Head: normocephalic, +traumatic ,+ scalp laceration/dustin Eyes: normal inspection, EOMI Neck: supple, Trachea midline Respiratory/Chest: Normal breath sounds, basal crackles, No accessory muscle use Cardiovascular: Irregularly irregular, +murmur Abdomen/GI:Soft, Non tender, Bowel sounds present Extremities/Musculoskeletal:normal inspection, B/L LE erythema, edema improved Neurologic/Psych:AAOX3, grossly no focal neurological deficits Skin: normal color, warm Results & Data Results & Data Vital Signs (Past 12 Hours) Vital Signs Temp Pulse Pulse Resp BP BP Pulse Ox 09/16/25 12:17 36.5 C 89 24 110/71 95 09/16/25 08:00 74 09/16/25 07:55 74 120/60 09/16/25 07:31 36.6 C 89 22 82/47 L 93 09/16/25 03:11 36.5 C 91 H 20 122/62 93 O2 Del Method 09/16/25 12:17 Room Air 09/16/25 08:00 09/16/25 07:55 09/16/25 07:31 Room Air 09/16/25 03:11 Room Air Laboratory Results [facility] 09/16/25 06:09 Sodium 139 Potassium 4.3 Chloride 101 Carbon Dioxide 32 BUN 24 H Creatinine 1.06 Glucose 105 H Calcium 9.4
--- NOTE | 2025-09-16 18:56 | Oral/Maxillofacial Consult ---
Date of Consultation September 16, 2025 History of Present Illness Attending Physician: Mitch Anthony MD History of Present Illness I reviewed the CT scan---there are no Acute findings. Many teeth are fractured, carious and have associated periapical radiolucent lesions of long standing duration. I see no active infection or subperiosteal infections. I would suggest that her family or facility make her an appointment with a local general dentist for a comprehensive dental exam with dental xrays. There is no doubt that many teeth have carious lesions, fractured crowns, and chronic periapical lesions. Once a comprehensive dental exam with X Rays are evaluated a treatment plan can be developed. Some teeth will need to be extracted and repaired. A generalized dental cleaning is needed as well. No acute dental issues are noted however, given the CT exam future issues are likely to develop. I must stress the importance of getting a GENERAL DENTAL exam to develop a tr eatment plan. As an oral surgeon I can remove the hopeless teeth but unfortunately there is a lot more going on to treat Mrs. Howard. I am out of town this week so I am unable to see patient at bedside, regardless an out patient dental exam is the standard of care to help develop a treatment plan. Thanks Mikhail Monique DMD Oral Maxillofacial Surgery Allergies Allergy/AdvReac Type Severity Reaction Status Date / Time No Known Allergies Allergy Verified 09/10/25 18:59 Home Medications Medication Instructions Recorded Confirmed Type hydroxyzine HCl 10 mg tablet 10 - 20 mg PO DIRECTED PRN 01/13/24 09/10/25 History Anxiety/Mood loperamide 2 mg capsule (Imodium 2 mg PO DIRECTED 09/30/24 09/10/25 History A-D) apixaban 5 mg tablet (Eliquis) 5 mg PO BID #60 tabs 07/26/25 09/10/25 Rx calcium 500 mg (as 1 tab PO DAILY #30 tabs 07/26/25 09/10/25 Rx carbonate)-vitamin D3 5 mcg (200 unit) tablet (Oyster Shell Calcium-Vitamin D3) furosemide 20 mg tablet (Lasix) 20 mg PO Q OTHER DAY #30 tabs 07/26/25 09/10/25 Rx hydroxyzine HCl 10 mg tablet 10 mg PO BID #60 tabs 07/26/25 09/10/25 Rx hydroxyzine HCl 10 mg tablet 20 mg (2 x 10 mg) PO HS #30 tabs 07/26/25 09/10/25 Rx lamotrigine 200 mg tablet 200 mg PO HS 30 days #30 tabs 07/26/25 09/10/25 Rx melatonin 3 mg disintegrating 3 mg PO HS PRN Insomnia #30 tabs 07/26/25 09/10/25 Rx tablet metoprolol succinate 100 mg 100 mg PO QAM #30 tabs 07/26/25 09/10/25 Rx tablet,extended release 24 hr multivitamin (Daily-Priscila tablet) 1 tab PO DAILY #30 tabs 07/26/25 09/10/25 Rx omeprazole 40 mg capsule,delayed 40 mg PO DAILYBB #30 caps 07/26/25 09/10/25 Rx release oxybutynin chloride 5 mg tablet 2.5 mg (1/2 x 5 mg) PO BID #30 tabs 07/26/25 09/10/25 Rx paroxetine HCl 30 mg tablet 30 mg PO HS #30 tabs 07/26/25 09/10/25 Rx tramadol 50 mg tablet 50 mg PO BID PRN pain #10 tabs 07/26/25 09/10/25 Rx vit C 250 mg-vit E 90 mg-zinc 40 1 tab PO BID #30 caps 07/26/25 09/10/25 Rx mg-copper 1 [id number] capsule (PreserVision AREDS-2) levothyroxine 75 mcg tablet 75 mcg PO DAILYBB 09/10/25 09/10/25 History naproxen sodium 220 mg tablet 220 mg PO BID PRN Pain 09/10/25 09/10/25 History Patient History Medical History HTN (hypertension) Osteoarthritis of right knee Stasis dermatitis Elevated liver enzymes Degenerative arthritis Anxiety Surgical History History of hip surgery 02/2024 - right femur fracture s/p intermedullary anai S/P cataract surgery Family History Father , age 76 of metastatic prostate cancer Cancer Prostate cancer Heart disease Mother , age 93 Rheumatoid arthritis Social History Smoking Status: Never smoker Second Hand Exposure: No; Do You Dip or Chew Tobacco: No; Tobacco Cessation Education Requested by Patient: No Hx Alcohol Use: No Hx Substance Use: No Preferred Language: Monegasque Communication Ability: Effective Clinical Quality Analyst Required: No Beliefs That Will Affect Care: None marital status: Single Current Living Situation: Personal Care Facility Current Living Situation Comment: [facility] current occupational status: retired 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57 How many Children do You have: 0 Other Information That Helps Us Care for You: No Feels Safe at Home: Yes Safety Concerns: Feels Safe At This Time Assistive Devices: Walker and Wheelchair Results & Data Vital Signs (Past 12 Hours) Vital Signs Temp Pulse Pulse Resp BP BP Pulse Ox 09/16/25 15:34 85 09/16/25 15:32 36.7 C 77 18 100/61 94 09/16/25 12:17 36.5 C 89 24 110/71 95 09/16/25 08:00 74 09/16/25 07:55 74 120/60 09/16/25 07:31 36.6 C 89 22 82/47 L 93 O2 Del Method 09/16/25 15:34 09/16/25 15:32 Room Air 09/16/25 12:17 Room Air 09/16/25 08:00 09/16/25 07:55 09/16/25 07:31 Room Air PG Care Time/CCT Total # of Minutes Spent Total Time Spent with Patient: Total time spent is greater than 50% in coordination of care (as documented) at patient's floor/unit and/or counseling patient: Coding Level of Care Code 90223 OP VST NEW SF 15 MIN
--- NOTE | 2025-09-17 13:47 | Hospitalist Progress Note ---
Date of Service September 17, 2025 Assessment & Plan (1) Fall: Plan: 84-year-old female with past med history significant for hypothyroidism, history of systolic CHF, nonrheumatic aortic valve stenosis, GERD, CKD stage IIIa, history of generalized weakness, history of lipodermatosclerosis of lower extremities, kyphosis of spine, osteoporosis, macular degeneration, postherpetic polyneuropathy, essential tremor, inguinal lymphadenopathy, depression, gait disturbance, history of COVID, history of MRSA screen positive, spinal stenosis of cervical region,, comes from [facility] after fall. Patient says she is mostly wheelchair-bound. Patient says she can walk few steps. Patient says she got up and tried to on TV when her legs gave away and fell backwards and hit her head. Patient states she was able to get up. As per the ER patient was found on the floor as staff heard a sound and when checked was found on the bathroom floor. No loss of consciousness. There was bleeding in the back of the head. She was found to have some laceration in the occipital region status post dustin in the ER. Patient complains of pain at the head injury site. Vision is okay. No runny nose or sore throat. No cough. Afebrile. States appetite is good. Denies any difficulty swallowing. Denies chest pain. No shortness of breath. Denies back pain. Denies abdominal pain. Denies pain in the legs. No nausea. Normal bowel and bladder movements. Patient complains of some wounds to the lower extremities. In the ER patient was also found to be in rapid A-fib. Fall Scalp laceration S/P Dustin in ED Left parietal scalp hematoma CT head Cerebral atrophy and chronic small vessel ischemic disease. No sign of intracranial hemorrhage. Left parietal scalp hematoma CT chest no CT evidence of acute traumatic process. Small to moderate bilateral pleural effusions CT cervical spine no acute findings CT abdomen pelvis no acute findings PT OT, fall precautions Plan to discharge to SNF when accepted Stable for discxharge A-fib RVR H/O Afib Continue metoprolol succinate 100 mg daily Monitor and replete electrolytes as needed IV Lopressor as needed Eliquis held for possible dental procedure Resume Eliquis Acute on chronic diastolic CHF Valvular heart disease Moderate aortic stenosis --Last ECHO in Jun 2025: EF 65 to 70%. No regional wall motion abnormality. Left atrium severely dilated. Right atrium moderately dilated. Moderate valvular aortic stenosis. Mild mitral regurgitation. Mild mitral stenosis. Moderate tricuspid regurgitation. Pulmonary artery systolic pressure estimated to be 70 mmHg. Continue metoprolol succinate Continue IV Lasix>> transition to oral Lasix Volume status much improved Bilateral lower extremity cellulitis Chronic venous stasis Recently was treated for cellulitis as well Lower extremity superficial wounds Received IV Rocephin Continue doxycycline to complete the course Wound care consult Appreciate ID input Periapical abscess Likely source of bacteremia --CT Face:1. Lucencies around the multiple teeth in the left lower jaw and right lower incisor consistent with periapical abscesses. Multiple dental caries. Recommend dental consult. 12/01: Grew Rothia dentocariosa and Strep Salivarius/vestibular gp --Repeat blood cultures: No growth to date Continue empiric antibiotics as above --ECHO: EF 65 to 70%. Aortic valve is trileaflet. Aortic valve leaflets are heavily calcified and restricted in mobility. Moderate to severe valvular aortic stenosis. Severe mitral calcification. Mitral valve leaflets are thickened and restricted in mobility. Distinct vegetation not visualized. Mild mitral regurgitation, mild mitral stenosis, moderate tricuspid regurgitation. --Appreciate ID, Oromaxillary surgeon input Continue Augmentin for now Repeat blood cultures negative to date Needs follow-up with dental surgery on discharge Requested ID for final recommendations today--pending input Hypothyroidism Continue levothyroxine GERD Continue PPI Depression Paroxetine and Lamictal Anxiety On hydroxyzine Ambulatory dysfunction Wheelchair-bound as per patient Continue PT OT, fall precautions CKD stage III A Monitor renal function Avoid nephrotoxic agents as able Chronic anemia Hemoglobin at baseline Monitor DVT Px: Eliquis CODE STATUS Full code Disposition Waiting for placement Admission and Anticipated Discharge Date Admission Date: September 10, 2025 Subjective Patient is seen and examined at bedside States feeling tired today No other complaints Denies any chest pain, nausea, vomiting, abdominal pain, dyspnea Waiting for placement Review of Systems Review of Systems: All systems reviewed & are unremarkable except as noted in Subjective Physical Exam Physical Exam: Physical Exam: Vitals signs as noted above General Appearance:Moderately built and nourished, no apparent distress, elderly Head: normocephalic, +traumatic ,+ scalp laceration/dustin Eyes: normal inspection, EOMI Neck: supple, Trachea midline Respiratory/Chest: Normal breath sounds, basal crackles, No accessory muscle use Cardiovascular: Irregularly irregular, +murmur Abdomen/GI:Soft, Non tender, Bowel sounds present Extremities/Musculoskeletal:normal inspection, B/L LE erythema, edema improved Neurologic/Psych:AAOX3, grossly no focal neurological deficits Skin: normal color, warm Results & Data Results & Data Vital Signs (Past 12 Hours) Vital Signs Temp Pulse Resp BP Pulse Ox O2 Del Method 09/17/25 11:57 36.6 C 92 H 18 111/64 97 Room Air 09/17/25 11:43 Room Air 09/17/25 07:51 36.7 C 100 H 18 106/55 L 93 Room Air 09/17/25 03:10 36.5 C 87 16 100/64 93 Room Air
[2025-09-18 08:02] VITALS: PULSE 84; RESP 18; TEMP 97.7; O2SAT 96
--- NOTE | 2025-09-18 11:02 | Hospitalist Progress Note ---
Date of Service September 18, 2025 Assessment & Plan (1) Fall: Plan: 84-year-old female with past med history significant for hypothyroidism, history of systolic CHF, nonrheumatic aortic valve stenosis, GERD, CKD stage IIIa, history of generalized weakness, history of lipodermatosclerosis of lower extremities, kyphosis of spine, osteoporosis, macular degeneration, postherpetic polyneuropathy, essential tremor, inguinal lymphadenopathy, depression, gait disturbance, history of COVID, history of MRSA screen positive, spinal stenosis of cervical region,, comes from [facility] after fall. Patient says she is mostly wheelchair-bound. Patient says she can walk few steps. Patient says she got up and tried to on TV when her legs gave away and fell backwards and hit her head. Patient states she was able to get up. As per the ER patient was found on the floor as staff heard a sound and when checked was found on the bathroom floor. No loss of consciousness. There was bleeding in the back of the head. She was found to have some laceration in the occipital region status post dustin in the ER. Patient complains of pain at the head injury site. Vision is okay. No runny nose or sore throat. No cough. Afebrile. States appetite is good. Denies any difficulty swallowing. Denies chest pain. No shortness of breath. Denies back pain. Denies abdominal pain. Denies pain in the legs. No nausea. Normal bowel and bladder movements. Patient complains of some wounds to the lower extremities. In the ER patient was also found to be in rapid A-fib. Fall Scalp laceration S/P Dustin in ED Left parietal scalp hematoma CT head Cerebral atrophy and chronic small vessel ischemic disease. No sign of intracranial hemorrhage. Left parietal scalp hematoma CT chest no CT evidence of acute traumatic process. Small to moderate bilateral pleural effusions CT cervical spine no acute findings CT abdomen pelvis no acute findings PT OT, fall precautions Plan to discharge to [facility] today A-fib RVR H/O Afib Continue metoprolol succinate 100 mg daily Monitor and replete electrolytes as needed IV Lopressor as needed Continue Eliquis for anticoagulation Acute on chronic diastolic CHF Valvular heart disease Moderate aortic stenosis --Last ECHO in Jun 2025: EF 65 to 70%. No regional wall motion abnormality. Left atrium severely dilated. Right atrium moderately dilated. Moderate valvular aortic stenosis. Mild mitral regurgitation. Mild mitral stenosis. Moderate tricuspid regurgitation. Pulmonary artery systolic pressure estimated to be 70 mmHg. Continue metoprolol succinate Continue IV Lasix>> transition to oral Lasix Volume status back to baseline Bilateral lower extremity cellulitis Chronic venous stasis Recently was treated for cellulitis as well Lower extremity superficial wounds Received IV Rocephin Continue doxycycline to complete the course Wound care consult Appreciate ID input Periapical abscess Likely source of bacteremia --CT Face:1. Lucencies around the multiple teeth in the left lower jaw and right lower incisor consistent with periapical abscesses. Multiple dental caries. Recommend dental consult. 12/01: Grew Rothia dentocariosa and Strep Salivarius/vestibular gp --Repeat blood cultures: No growth to date Continue empiric antibiotics as above --ECHO: EF 65 to 70%. Aortic valve is trileaflet. Aortic valve leaflets are heavily calcified and restricted in mobility. Moderate to severe valvular aortic stenosis. Severe mitral calcification. Mitral valve leaflets are thickened and restricted in mobility. Distinct vegetation not visualized. Mild mitral regurgitation, mild mitral stenosis, moderate tricuspid regurgitation. --Appreciate ID, Oromaxillary surgeon input Continue Augmentin for now Repeat blood cultures negative to date Needs follow-up with dental surgery on discharge Discussed with infectious disease on 09/17/25:Recommends to continue Augmentin until evaluated by dental surgeon. Hypothyroidism Continue levothyroxine GERD Continue PPI Depression Paroxetine and Lamictal Anxiety On hydroxyzine Ambulatory dysfunction Wheelchair-bound as per patient Continue PT OT, fall precautions CKD stage III A Monitor renal function Avoid nephrotoxic agents as able Chronic anemia Hemoglobin at baseline Monitor DVT Px: Eliquis CODE STATUS Full code Disposition [facility] Admission and Anticipated Discharge Date Admission Date: September 10, 2025 Subjective Patient is seen and examined at bedside States feeling well today No new complaints Denies any chest pain, nausea, vomiting, abdominal pain, dyspnea Plan to discharge to personal-care facility today Review of Systems Review of Systems: All systems reviewed & are unremarkable except as noted in Subjective Physical Exam Physical Exam: Physical Exam: Vitals signs as noted above General Appearance:Moderately built and nourished, no apparent distress, elderly Head: normocephalic, +traumatic ,+ scalp laceration/dustin Eyes: normal inspection, EOMI Neck: supple, Trachea midline Respiratory/Chest: Normal breath sounds, basal crackles, No accessory muscle use Cardiovascular: Irregularly irregular, +murmur Abdomen/GI:Soft, Non tender, Bowel sounds present Extremities/Musculoskeletal:normal inspection, B/L LE erythema, edema improved Neurologic/Psych:AAOX3, grossly no focal neurological deficits Skin: normal color, warm Results & Data Results & Data Vital Signs (Past 12 Hours) Vital Signs Temp Pulse Resp BP Pulse Ox O2 Del Method 09/18/25 09:42 Room Air 09/18/25 08:00 36.5 C 84 18 108/63 96 Room Air 09/18/25 03:32 36.4 C L 17 122/64 93 Room Air 09/17/25 23:23 36.5 C 18 120/68 94 Room Air
--- NOTE | 2025-09-18 11:19 | Discharge Summary ---
Date of Service September 18, 2025 Admission HPI Per Admitting Provider 84-year-old female with past med history significant for hypothyroidism, history of systolic CHF, nonrheumatic aortic valve stenosis, GERD, CKD stage IIIa, history of generalized weakness, history of lipodermatosclerosis of lower extremities, kyphosis of spine, osteoporosis, macular degeneration, postherpetic polyneuropathy, essential tremor, inguinal lymphadenopathy, depression, gait disturbance, history of COVID, history of MRSA screen positive, spinal stenosis of cervical region,, comes from [facility] after fall. Patient says she is mostly wheelchair-bound. Patient says she can walk few steps. Patient says she got up and tried to on TV when her legs gave away and fell backwards and hit her head. Patient states she was able to get up. As per the ER patient was found on the floor as staff heard a sound and when checked was found on the bathroom floor. No loss of consciousness. There was bleeding in the back of the head. She was found to have some laceration in the occipital region status post dustin in the ER. Patient complains of pain at the head injury site. Vision is okay. No runny nose or sore throat. No cough. Afebrile. States appetite is good. Denies any difficulty swallowing. Denies chest pain. No shortness of breath. Denies back pain. Denies abdominal pain. Denies pain in the legs. No nausea. Normal bowel and bladder movements. Patient complains of some wounds to the lower extremities. In the ER patient was also found to be in rapid A-fib. Past medical history. As mentioned above. Past surgical history. Leg trochanteric fracture treatment. Social history. Current living [facility]. No smoking. No alcohol use. No drug use. Family history. Mother had arthritis. Paternal aunt had breast cancer. Maternal aunt had breast cancer. Paternal aunt had non-Hodgkin's lymphoma. Father had prostate cancer. Paternal aunt had diabetes. Paternal aunts had hypertension. Admission Exam Per Admitting Provider General- Not in acute distress Head- laceration in occipital region s/p dustin Eyes- PERRL. ENT- oropharynx clear Neck- supple, no JVD. Lungs- clear to auscultation no wheezing or crackles Heart- irregular rhythm; no murmur, no gallop. Abdomen- normal bowel sounds, soft, nontender, no distension Extremities- b/l lower extremity edema and erythema seen with superficial wounds seen in guerrero regions Neuro- alert, oriented PERRL, no facial palsy; no dysarthria; moves extremities Principal Diagnosis Mechanical fall Scalp laceration, scalp hematoma Atrial fibrillation with rapid ventricular response Acute on chronic diastolic heart failure Bilateral lower extremity cellulitis Periapical abscess/odontogenic infection Bacteremia Discharge Data Allergies Allergy/AdvReac Type Severity Reaction Status Date / Time No Known Allergies Allergy Verified 09/10/25 18:59 Consultations 09/10/25 19:06 ED Decision to Admit Stat 09/12/25 13:43 Consult Infectious Diseases Routine 09/15/25 08:48 Consult Oromaxillofacial Surgery Routine Procedures Performed Laboratory Results WBC 8.18 K/ul (4.8-10.8) 09/14/25 05:41 RBC 3.64 M/uL (4.20-5.40) L 09/14/25 05:41 Hgb 10.4 g/dl (12.0-16.0) L 09/14/25 05:41 POC Hgb 12.2 g/dl (12.0-16.0) 09/10/25 17:06 Hct 32.0 % (37.0-47.0) L 09/14/25 05:41 POC Hct 36 % (37-47) L 09/10/25 17:06 MCV 87.9 fL (80.0-100.0) 09/14/25 05:41 MCH 28.6 pg (25.0-34.0) 09/14/25 05:41 MCHC 32.5 g/dL (32.0-36.0) 09/14/25 05:41 RDW Std Deviation 45.2 fL (36.4-46.3) 09/14/25 05:41 RDW Coeff of Ebnita 14.2 % (11.5-14.5) 09/14/25 05:41 Plt Count 289 K/uL (130-400) 09/14/25 05:41 MPV 8.6 fL (9.4-12.4) L 09/14/25 05:41 Immature Gran % (Auto) 0.3 % 09/11/25 06:01 Neut % (Auto) 62.6 % 09/11/25 06:01 Lymph % (Auto) 21.3 % 09/11/25 06:01 [place] % (Auto) 12.0 % 09/11/25 06:01 Eos % (Auto) 3.2 % 09/11/25 06:01 Baso % (Auto) 0.6 % 09/11/25 06:01 Neut # (Auto) 4.32 K/uL (1.40-6.50) 09/11/25 06:01 Lymph # (Auto) 1.47 K/uL (1.20-3.40) 09/11/25 06:01 [place] # (Auto) 0.83 K/uL (0.11-0.59) H 09/11/25 06:01 Eos # (Auto) 0.22 K/uL (0.00-0.50) 09/11/25 06:01 Baso # (Auto) 0.04 K/uL (0.00-0.20) 09/11/25 06:01 Immature Gran # (Auto) 0.02 K/uL (0.01-0.20) 09/11/25 06:01 PT 12.1 Seconds (9.0-12.0) H 09/10/25 16:46 INR 1.2 (0.9-1.1) H 09/10/25 16:46 APTT 29 Seconds (21-31) 09/10/25 16:46 PTT Ratio 1.1 09/10/25 16:46 POC Sodium 139 mmol/L (135-144) 09/10/25 17:06 Sodium 139 mmol/L (136-145) 09/16/25 06:09 POC Potassium 3.9 mmol/L (3.3-5.0) 09/10/25 17:06 Potassium 4.3 mmol/L (3.5-5.1) 09/16/25 06:09 POC Chloride 101 mmol/L (101-112) 09/10/25 17:06 Chloride 101 mmol/L (98-107) 09/16/25 06:09 Carbon Dioxide 32 mmol/L (21-32) 09/16/25 06:09 POC Total CO2 25 mmol/L (24-31) 09/10/25 17:06 Anion Gap 6 (3-11) 09/16/25 06:09 POC Anion Gap 17.0 mmol/L (16-25) 09/10/25 17:06 POC BUN 22 mg/dl (7-18) H 09/10/25 17:06 BUN 24 mg/dl (6-23) H 09/16/25 06:09 Creatinine 1.06 mg/dl (0.6-1.2) 09/16/25 06:09 POC Creatinine 1.2 mg/dl (0.6-1.3) 09/10/25 17:06 Est Cr Clr Drug Dosing 34.4 ml/min 09/16/25 06:09 eGFR 52.12 09/16/25 06:09 BUN/Creatinine Ratio 22.6 (10-20) H 09/16/25 06:09 Glucose 105 mg/dl (70-99(Fasting)) H 09/16/25 06:09 POC Glucose (other) 139 mg/dl (70-99) H 09/10/25 17:06 Calcium 9.4 mg/dl (8.6-10.3) 09/16/25 06:09 POC Ioniz Calcium Clint 1.15 mmol/l (1.12-1.32) 09/10/25 17:06 Magnesium 1.7 mg/dl (1.7-2.4) 09/14/25 05:41 Total Bilirubin 1.2 mg/dl (0.2-1.0) H 09/10/25 16:46 AST 20 U/L (13-39) 09/10/25 16:46 ALT 14 U/L (7-52) 09/10/25 16:46 Alkaline Phosphatase 221 U/L (34-104) H 09/10/25 16:46 Total Creatine Kinase 42 U/L (26-192) 09/10/25 16:46 Troponin I High Sens 9.3 pg/ml (0-14) 09/10/25 16:46 Total Protein 7.6 gm/dl (6.0-8.3) 09/10/25 16:46 Albumin 3.9 gm/dl (3.4-5.0) 09/10/25 16:46 Globulin 3.7 gm/dl (2.5-4.0) 09/10/25 16:46 Albumin/Globulin Ratio 1.1 (0.9-2) 09/10/25 16:46 Lipase 20 U/L (11-82) 09/10/25 16:46 Procalcitonin < 0.02 ng/ml (0-0.5) 09/14/25 05:41 Urine Color Yellow 09/10/25 23:10 Urine Appearance Clear (Clear) 09/10/25 23:10 Urine pH 5.5 (4.5-7.5) 09/10/25 23:10 Ur Specific [place] 1.044 (1.000-1.030) H 09/10/25 23:10 Urine Protein 2+ (Negative) H 09/10/25 23:10 Urine Glucose (UA) Negative (Negative) 09/10/25 23:10 Urine Ketones Negative (Negative) 09/10/25 23:10 Urine Blood Negative (Negative) 09/10/25 23:10 Urine Nitrite Negative (Negative) 09/10/25 23:10 Urine Bilirubin Negative (Negative) 09/10/25 23:10 Urine Urobilinogen Negative (Negative) 09/10/25 23:10 Ur Leukocyte Esterase Negative (Negative) 09/10/25 23:10 Urine WBC (Auto) 0-5 /hpf (0-5) 09/10/25 23:10 Urine RBC (Auto) 0-2 /hpf (0-2) 09/10/25 23:10 U Hyaline Cast (Auto) 0-2 /lpf (0-2) 09/10/25 23:10 U Epithel Cells (Auto) 0-2 /hpf (0-2) 09/10/25 23:10 Urine Bacteria (Auto) None Seen (None Seen) 09/10/25 23:10 Urine Comment 09/10/25 23:10 Streptococcus sp PCR DETECTED (NotDetected) A 09/10/25 19:15 Bld Cult ID Panel PCR PCR Panel Negative (NotDetected) 09/10/25 19:15 Bld Cult ID Panel PCR See PCR Comment (NotDetected) 09/10/25 19:15 Impressions Abdomen/Pelvis CT 09/10/25 16:50 EXAMINATION: Abdomen and pelvis CT with CLINICAL HISTORY: Fall unwitnessed PRIORS: 07/18/2025, 2023 TECHNIQUE: Contiguous axial images were obtained through the abdomen and pelvis with the use of intravenous contrast. Sagittal and coronal reformations are supplied. FINDINGS: Small to moderate bilateral pleural effusions. No hemoperitoneum or retroperitoneal hemorrhage. No solid organ laceration or subcapsular hematoma. Liver enhances heterogeneous leak which could be on the basis of timing of contrast. The portal vein, under distended stomach, spleen, adrenals, aorta and IVC are morphologically unremarkable. Kidneys enhance symmetrically with bilateral renal cortical thinning, right greater than left. Moderate atherosclerotic disease of the abdominal aorta noted. No dilated loops of bowel or bowel wall hematoma. A large amount of formed stool present throughout the colon. No bowel obstruction or pericolonic inflammatory change. Appendix is normal. Atrophic uterus is present. Adnexa not well-visualized. Urinary bladder distends normally. Moderate osseous demineralization noted. Degenerative change throughout the thoracic spine with no high-grade compression fracture. No displaced sacral fracture. Surgical hardware in the right hip at the edge of the [id number]. No displaced pelvic fracture identified. Obturator ring symmetric. Pubic symphysis not widened. Sacroiliac joints patent. IMPRESSION: 1. No CT evidence of an acute or traumatic abnormality in the abdomen or pelvis. 2. None acute findings noted above. Electronically signed by Bárbara Oneill 09-10-2025 6:[address] 09/10/25 16:50 EXAM: CT cervical spine CLINICAL HISTORY: Fall, laceration on back of head TECHNIQUE: Contiguous axial images were obtained through the cervical spine without the use of intravenous contrast. Sagittal and coronal reformations are supplied. PRIORS: 03/15/2025 FINDINGS: Dental amalgam create significant beam hardening artifact diminishing image quality. No pneumothorax in the lung apices. Moderate osseous demineralization noted. Lordotic straightening is noted. No acute cervical spine fracture or facet dislocation. Moderate degenerative change present throughout the mid to lower spine, unchanged. No prevertebral soft tissue swelling. Visualized trachea is patent. IMPRESSION: No CT evidence of an acute osseous abnormality. Electronically signed by Bárbara Oneill 09-10-2025 6:[address] 09/10/25 16:50 EXAMINATION: Chest CT with CLINICAL HISTORY: Arrived via EMS, unwitnessed fall found on bathroom floor by staff, laceration back of head TECHNIQUE: Contiguous axial images were obtained through the chest with the use of intravenous contrast. Sagittal and coronal reformations are supplied. COMPARISON: CT October 01, 2024 FINDINGS: Lung volumes mildly diminished. Motion artifact degrades image quality. No pneumothorax. Small bilateral pleural effusions are present, progressed in the interval. Bilateral subpleural reticular markings, unchanged. No pulmonary contusion or large area of airspace consolidation. No dominant mass. Trachea mainstem bronchi are patent. Aorta is normal in size and morphology. Moderately enlarged cardiac silhouette noted. No adenopathy. No subcutaneous hematoma. No pericardial effusion. Moderate osseous demineralization is present. Moderate kyphosis. No high-grade thoracic vertebral body compression fracture. No facet dislocation. No sternal or rib fracture. Abdomen CT dictated under separate heading. IMPRESSION: 1. No CT evidence of an acute or traumatic cardiopulmonary process. 2. Small to moderate bilateral pleural effusions, mildly progressed. 3. Cardiomegaly, unchanged. Electronically signed by Bárbara Oneill 09-10-2025 6:[address] 09/10/25 16:50 Technique: Axial computed tomography images were obtained of the brain without intravenous contrast. Findings: There is diffuse cerebral atrophy, within expected limits for the patient's age. Areas of decreased attenuation are seen within the periventricular white matter, likely representing chronic small vessel ischemic disease. There is no definite sign of acute or old infarction. No intracranial hemorrhage is evident. No definite mass lesion is seen on this noncontrast examination. There is no midline shift or other form of herniation. No hydrocephalus is seen. No fracture is identified. The orbits and the visualized paranasal sinuses appear unremarkable. The mastoid air cells appear clear. There is a left parietal scalp hematoma Impression: 1. Cerebral atrophy and chronic small vessel ischemic disease 2. No sign of intracranial hemorrhage 3. Left parietal scalp hematoma Electronically signed by Lucius Yañez 09-10-2025 6:06 PM Chest X-Ray 09/13/25 07:00 EXAM: XR chest 1V portable CLINICAL HISTORY: CHF TECHNIQUE: An X-ray image of the chest is obtained in AP projection. COMPARISON: 09/10/2025 16:11:00 SAP PI ARCHITECT FINDINGS: Pulmonary Parenchyma: Progression of the bilateral perihilar opacities and hilar vascular congestion as well as diffuse pulmonary interstitial thickening. Obliterated both costophrenic angles likely by mild pleural effusion/thickening more on the right side and more appreciated in today's study. Heart and Mediastinum: Still seen cardiomegaly. No mediastinal widening or masses. No hilar or mediastinal lymphadenopathy. Bony Thorax: Bony thorax appears intact without fractures or deformities. Soft Tissues: Soft tissues overlying the chest wall are unremarkable. Internal fixation of the left humerus, bony osteopenia, bilateral acromioclavicular osteoarthritis. IMPRESSION: Progression of the bilateral perihilar opacities and hilar vascular congestion as well as diffuse pulmonary interstitial thickening. The possibility of pulmonary edema is suggested and inflammatory changes cannot be entirely excluded. Obliterated both costophrenic angles likely by mild pleural effusion/thickening more on the right side and more appreciated in today's study. Still seen cardiomegaly. Electronically signed by Francis Aguiar 09-13-2025 08:[address] 09/14/25 15:45 Exam: CT of the face without contrast Exam reason: Rule out dental infection. Comparison: No prior examinations available for comparison. Technique: Multiple transaxial images of the face were obtained without contrast. The images were also reconstructed in coronal and sagittal planes. Findings: There is no evidence of acute fracture or dislocation. The mandibular condyles are well-seated within the temporal mandibular fossa bilaterally. The paranasal sinuses are clear. The orbits and orbital contents are within normal limits. The bilateral mastoid air cells, inner ear ossicles and external auditory canals are within normal limits. There is lucency seen surrounding the roots of 2 of the teeth in the left lower jaw as well as surrounding the roots of the left lower jaw incisor. There is no significant stranding within the overlying subcutaneous tissues. Multiple dental caries are present throughout the mouth. Impression: 1. Lucencies around the multiple teeth in the left lower jaw and right lower incisor consistent with periapical abscesses. 2. Multiple dental caries. Recommend dental consult. Electronically signed by Martin Landa 09-14-2025 5:16 PM Ordered Studies 09/10/25 16:50 CT abd pelvis IV con only Stat CT cervical spine wo con Stat CT chest diagnostic w con Stat CT head/brain wo con Stat 09/14/25 15:45 CT facial bones wo con Routine Hospital Course (1) Fall: 84-year-old female with past med history significant for hypothyroidism, history of systolic CHF, nonrheumatic aortic valve stenosis, GERD, CKD stage IIIa, history of generalized weakness, history of lipodermatosclerosis of lower extremities, kyphosis of spine, osteoporosis, macular degeneration, postherpetic polyneuropathy, essential tremor, inguinal lymphadenopathy, depression, gait disturbance, history of COVID, history of MRSA screen positive, spinal stenosis of cervical region,, comes from [facility] after fall. Patient says she is mostly wheelchair-bound. Patient says she can walk few steps. Patient says she got up and tried to on TV when her legs gave away and fell backwards and hit her head. Patient states she was able to get up. As per the ER patient was found on the floor as staff heard a sound and when checked was found on the bathroom floor. No loss of consciousness. There was bleeding in the back of the head. She was found to have some laceration in the occipital region status post dustin in the ER. Patient complains of pain at the head injury site. Vision is okay. No runny nose or sore throat. No cough. Afebrile. States appetite is good. Denies any difficulty swallowing. Denies chest pain. No shortness of breath. Denies back pain. Denies abdominal pain. Denies pain in the legs. No nausea. Normal bowel and bladder movements. Patient complains of some wounds to the lower extremities. In the ER patient was also found to be in rapid A-fib. Fall Scalp laceration S/P [place] in ED Left parietal scalp hematoma CT head Cerebral atrophy and chronic small vessel ischemic disease. No sign of intracranial hemorrhage. Left parietal scalp hematoma CT chest no CT evidence of acute traumatic process. Small to moderate bilateral pleural effusions CT cervical spine no acute findings CT abdomen pelvis no acute findings PT OT, fall precautions Plan to discharge to [facility] today A-fib RVR H/O Afib Continue metoprolol succinate 100 mg daily Monitor and replete electrolytes as needed IV Lopressor as needed Continue Eliquis for anticoagulation Acute on chronic diastolic CHF Valvular heart disease Moderate aortic stenosis --Last ECHO in Jun 2025: EF 65 to 70%. No regional wall motion abnormality. Left atrium severely dilated. Right atrium moderately dilated. Moderate valvular aortic stenosis. Mild mitral regurgitation. Mild mitral stenosis. Moderate tricuspid regurgitation. Pulmonary artery systolic pressure estimated to be 70 mmHg. Continue metoprolol succinate Continue IV Lasix>> transition to oral Lasix Volume status back to baseline Bilateral lower extremity cellulitis Chronic venous stasis Recently was treated for cellulitis as well Lower extremity superficial wounds Received IV Rocephin Continue doxycycline to complete the course Wound care consult Appreciate ID input Periapical abscess Likely source of bacteremia --CT Face:1. Lucencies around the multiple teeth in the left lower jaw and right lower incisor consistent with periapical abscesses. Multiple dental caries. Recommend dental consult. 12/01: Grew Rothia dentocariosa and Strep Salivarius/vestibular gp --Repeat blood cultures: No growth to date Continue empiric antibiotics as above --ECHO: EF 65 to 70%. Aortic valve is trileaflet. Aortic valve leaflets are heavily calcified and restricted in mobility. Moderate to severe valvular aortic stenosis. Severe mitral calcification. Mitral valve leaflets are thickened and restricted in mobility. Distinct vegetation not visualized. Mild mitral regurgitation, mild mitral stenosis, moderate tricuspid regurgitation. --Appreciate ID, Oromaxillary surgeon input Continue Augmentin for now Repeat blood cultures negative to date Needs follow-up with dental surgery on discharge Discussed with infectious disease on 09/17/25:Recommends to continue Augmentin until evaluated by dental surgeon. Hypothyroidism Continue levothyroxine GERD Continue PPI Depression Paroxetine and Lamictal Anxiety On hydroxyzine Ambulatory dysfunction Wheelchair-bound as per patient Continue PT OT, fall precautions CKD stage III A Monitor renal function Avoid nephrotoxic agents as able Chronic anemia Hemoglobin at baseline Monitor DVT Px: Eliquis CODE STATUS Full code Disposition [facility] Total Time Total Time Spent Total Time Spent (In Minutes): 52 minutes Discharge Plan Discharge Items Patient Disposition: Personal Correction Reason For Visit: FALL, RAPID A FIB. CELLULITIS Discharge Diagnosis: Mechanical fall Scalp laceration, scalp hematoma Atrial fibrillation with rapid ventricular response Acute on chronic diastolic heart failure Bilateral lower extremity cellulitis Periapical abscess/odontogenic infection Bacteremia--Resolved Condition on Discharge: Fair Activity: Per Instructions section Exercise/Sports: Gradually increase as tolerated Non-emergency contact: Primary Care Provider and Surgeon Call non-emergency contact if: you have any medication questions, your symptoms worsen, your pain is concerning for you and you have a fever Follow-up/Referrals: Dion Choe DO [Primary Care Provider] - Diet: Heart Healthy Addtl Attending Provider Instructions: -- Follow-up with your primary care physician in 1 week -- Follow-up with your dental surgeon as recommended for further management of your dental infection -- Continue Augmentin as prescribed until you get evaluated by dental surgery Seek immediate medical attention if your symptoms reoccur or worsen Please review medication list provided on discharge for any medication changes as instructed. Please call if you have any questions or problems. You can reach a [facility] hospitalist on duty at [facility] 24 hours a day by calling [phone] [facility] Therapist Provider Instructions: Call your Primary Care doctor if any of the following symptoms or problems start or get worse: * Shortness of breath or difficulty breathing * Wake up at night short of breath * Chest pain * Cough * Swelling of your hands, feet, or legs * More fatigued or tired with your normal activity * Palpitations - sudden fast heart beats WEIGHT * Weigh yourself every morning after using the bathroom. * Use the same scale. * Wear the same amount of clothing. * Write your weight down on a chart. * Call your Primary Care doctor if you gain more than 2-3 pounds in 1-2 days. MEDICATIONS * Use this discharge instruction sheet for medication instructions. * Take your medications at the time your doctor ordered. * Do not skip a dose of your medicines. * If you miss a dose of medicine, take it as soon as possible, but DO NOT DOUBLE A DOSE. * Read your medicine information when you get home. * Know all of the side effects of your medicine. If in doubt, ask your pharmacist * Call your Primary Care doctor's office if you have any side effects. * Be sure all of your doctors know what medicine and herbs you take (including cold, flu, and herbal medicine). Take the following with you to your follow-up doctor appointments: * Weight Chart * Medication List * List of questions Do not drink excessive alcohol, beer or wine. Pending Studies at Discharge: No Stand-Alone Forms: My [facility] [employer], Smoking Cessation Skilled Items Patient informed of condition?: Yes DNR: No Discharge Level of Care: Other Communicable Disease: No Discharge Prognosis: Stable Lines: None Urinary Catheter: No Medications and DC Order Prescriptions: New amoxicillin-pot clavulanate 875-125 mg Tablet 1 tab PO BID 10 Days Qty: 20 0RF Advanced Probiotic 625 mg (10 billion cell) Capsule 1 cap PO DAILY Qty: 10 0RF Continued hydroxyzine HCl 10 mg Tablet 10 - 20 mg PO DIRECTED PRN (Reason: Anxiety/Mood) naproxen sodium 220 mg Tablet 220 mg PO BID PRN (Reason: Pain) levothyroxine 75 mcg tablet 75 mcg PO DAILYBB loperamide [Imodium A-D] 2 mg Capsule 2 mg PO DIRECTED Rx Instructions: TAKE 4MG BY MOUTH AFTER 1ST LOOSE STOOL, THEN 2MG AFTER ADDITION LOOSE STOOL. MAX 16MG DAILY multivitamin [Daily-Priscila] Tablet 1 tab PO DAILY Qty: 30 0RF lamotrigine 200 mg tablet 200 mg PO HS 30 Days Qty: 30 0RF metoprolol succinate 100 mg tablet extended release 24 hr 100 mg PO QAM Qty: 30 0RF omeprazole 40 mg capsule,delayed release(DR/EC) 40 mg PO DAILYBB Qty: 30 0RF tramadol 50 mg tablet 50 mg PO BID PRN (Reason: pain) Qty: 10 0RF paroxetine HCl 30 mg tablet 30 mg PO HS Qty: 30 0RF oxybutynin chloride 5 mg tablet 2.5 mg PO BID Qty: 30 0RF hydroxyzine HCl 10 mg tablet 20 mg PO HS Qty: 30 0RF hydroxyzine HCl 10 mg tablet 10 mg PO BID Qty: 60 0RF Rx Instructions: Give 1100 & 1700 calcium carbonate-vitamin D3 [Oyster Shell Calcium-Vit D3] 500 mg-5 mcg (200 unit) Tablet 1 tab PO DAILY Qty: 30 0RF Eliquis 5 mg Tablet 5 mg PO BID Qty: 60 0RF melatonin 3 mg Tablet,Disintegrating 3 mg PO HS PRN (Reason: Insomnia) Qty: 30 0RF PreserVision AREDS-2 250-90-40-1 mg Capsule 1 tab PO BID Qty: 30 0RF Changed furosemide [Lasix] 20 mg tablet 20 mg PO QAM Qty: 30 0RF Rx Instructions: ACCORDING TO MAR FROM [facility], SHE HAS BEEN GETTING THIS MED DAILY. Discharge Orders: Discharge Order (Routine); Ordered 09/18/25 Ordered By: Mitch Anthony Admission Data Admit Date/Time: 09/10/25 20:37 Attending Provider: Mitch Anthony Admit Provider: Cuco Dela Cruz Primary Care Provider: Dion Choe Other Providers: Cuco Dela Cruz; David Rivera; Ron Cox; Junaid Mendoza I.; Medhat Ferraro II; Roseanne Botello; Miguel Angel Hawley; Camilo Laguna; Tasia Hobbs; [place] [facility] Mikhail Monique; [facility]
[2025-09-18 11:36] VITALS: BP 120/60
== END 2025-09-18 12:43 | disposition home or self-care (01) | DRG 602 ==
LOC: ED 16:30 → SUATTDRO 20:37 → 2S 20:37